=== PATIENT | male | born 1945 | race Caucasian/White ===

== ENCOUNTER → 2022-10-08 10:27 | Outpatient (BNVA) | payer MEDICARE, SELFPAY | PROVIDERS: PCP Internal Medicine; Visit Provider Internal Medicine | DX: I26.99 Other pulmonary embolism without acute cor pulmonale (principal); Z51.81 Encounter for therapeutic drug level monitoring; Z79.01 Long term (current) use of anticoagulants | CPT/HCPCS: 85610; 99202 ==

== ENCOUNTER → 2022-10-15 10:35 | Outpatient (BNVA) | payer MEDICARE, SELFPAY | PROVIDERS: PCP Internal Medicine; Visit Provider Internal Medicine | DX: I26.99 Other pulmonary embolism without acute cor pulmonale (principal); Z79.01 Long term (current) use of anticoagulants; Z51.81 Encounter for therapeutic drug level monitoring | CPT/HCPCS: 85610; 99211 ==

== ENCOUNTER → 2022-10-29 10:34 | Outpatient (BNVA) | payer MEDICARE, SELFPAY | PROVIDERS: PCP Internal Medicine; Visit Provider Internal Medicine | DX: I26.99 Other pulmonary embolism without acute cor pulmonale (principal); Z79.01 Long term (current) use of anticoagulants; Z51.81 Encounter for therapeutic drug level monitoring | CPT/HCPCS: 85610; 99211 ==

== ENCOUNTER → 2022-11-12 10:45 | Outpatient (BNVA) | payer MEDICARE, SELFPAY | PROVIDERS: PCP Internal Medicine; Visit Provider Internal Medicine | DX: I26.99 Other pulmonary embolism without acute cor pulmonale (principal); Z79.01 Long term (current) use of anticoagulants; Z51.81 Encounter for therapeutic drug level monitoring | CPT/HCPCS: 85610; 99211 ==

== ENCOUNTER → 2022-11-26 13:00 | Outpatient (BNVA) | payer MEDICARE, SELFPAY | PROVIDERS: PCP Internal Medicine; Visit Provider Internal Medicine | DX: I26.99 Other pulmonary embolism without acute cor pulmonale (principal); Z79.01 Long term (current) use of anticoagulants; Z51.81 Encounter for therapeutic drug level monitoring | CPT/HCPCS: 85610; 99211 ==

== ENCOUNTER → 2022-12-10 13:01 | Outpatient (BNVA) | payer MEDICARE, SELFPAY | PROVIDERS: PCP Internal Medicine; Visit Provider Internal Medicine | DX: I26.99 Other pulmonary embolism without acute cor pulmonale (principal); Z79.01 Long term (current) use of anticoagulants; Z51.81 Encounter for therapeutic drug level monitoring | CPT/HCPCS: 85610; 99211 ==

== ENCOUNTER → 2022-12-19 13:28 | Outpatient (BNVA) | payer MEDICARE, SELFPAY | PROVIDERS: PCP Internal Medicine; Visit Provider Internal Medicine | DX: I26.99 Other pulmonary embolism without acute cor pulmonale (principal); Z79.01 Long term (current) use of anticoagulants; Z51.81 Encounter for therapeutic drug level monitoring | CPT/HCPCS: 85610; 99212 ==

== ENCOUNTER → 2022-12-24 13:00 | Outpatient (BNVA) | payer MEDICARE, SELFPAY | PROVIDERS: PCP Nurse Practitioner Acute Care; Visit Provider Internal Medicine | DX: I26.99 Other pulmonary embolism without acute cor pulmonale (principal); Z79.01 Long term (current) use of anticoagulants; Z51.81 Encounter for therapeutic drug level monitoring | CPT/HCPCS: 85610; 99211 ==

== ENCOUNTER → 2023-01-03 13:16 | Outpatient (BNVA) | payer MEDICARE, SELFPAY | PROVIDERS: PCP Nurse Practitioner Acute Care; Visit Provider Internal Medicine | DX: I26.99 Other pulmonary embolism without acute cor pulmonale (principal); Z51.81 Encounter for therapeutic drug level monitoring; Z79.01 Long term (current) use of anticoagulants | CPT/HCPCS: 85610; 99211 ==

== ENCOUNTER → 2023-01-21 10:44 | Outpatient (BNVA) | payer MEDICARE, SELFPAY | PROVIDERS: PCP Nurse Practitioner Acute Care; Visit Provider Internal Medicine | DX: I26.99 Other pulmonary embolism without acute cor pulmonale (principal); Z79.01 Long term (current) use of anticoagulants; Z51.81 Encounter for therapeutic drug level monitoring | CPT/HCPCS: 85610; 99211 ==

== ENCOUNTER → 2023-02-11 10:41 | Outpatient (BNVA) | payer MEDICARE, SELFPAY | PROVIDERS: PCP Nurse Practitioner Acute Care; Visit Provider Internal Medicine | DX: I26.99 Other pulmonary embolism without acute cor pulmonale (principal); Z79.01 Long term (current) use of anticoagulants; Z51.81 Encounter for therapeutic drug level monitoring | CPT/HCPCS: 85610; 99211 ==

== ENCOUNTER → 2023-03-04 10:48 | Outpatient (BNVA) | payer MEDICARE, SELFPAY | PROVIDERS: PCP Nurse Practitioner Acute Care; Visit Provider Internal Medicine | DX: I26.99 Other pulmonary embolism without acute cor pulmonale (principal); Z79.01 Long term (current) use of anticoagulants; Z51.81 Encounter for therapeutic drug level monitoring | CPT/HCPCS: 85610; 99211 ==

== ENCOUNTER → 2023-03-17 10:50 | Outpatient (BNVA) | payer MEDICARE, SELFPAY | PROVIDERS: PCP Nurse Practitioner Acute Care; Visit Provider Internal Medicine | DX: I26.99 Other pulmonary embolism without acute cor pulmonale (principal); Z51.81 Encounter for therapeutic drug level monitoring; Z79.01 Long term (current) use of anticoagulants | CPT/HCPCS: 85610; 99211 ==

== ENCOUNTER → 2023-03-24 10:53 | Outpatient (BNVA) | payer MEDICARE, SELFPAY | PROVIDERS: PCP Nurse Practitioner Acute Care; Visit Provider Internal Medicine | DX: I26.99 Other pulmonary embolism without acute cor pulmonale (principal); Z79.01 Long term (current) use of anticoagulants; Z51.81 Encounter for therapeutic drug level monitoring | CPT/HCPCS: 85610; 99211 ==

== ENCOUNTER 2023-04-08 10:00 | Outpatient (AMB) | payer MEDICARE, SELFPAY ==
[2023-04-08 10:14] LABS: Prothrombin Time Whole Bld POC 32.6 sec (11.1-13.5); ~PT, ~INR - Anti Coag Clinic 2.7 (0.9-1.1)
--- NOTE | 2023-04-08 10:17 | MHC.OFFVISCO ---
Intake Intake Visit Reasons: Anticoagulation Allergies lovenox Allergy (Severe, Uncoded 04/08/23 10:08) bleeding morphine Allergy (Severe, Uncoded 04/08/23 10:08) Rash kepra Adverse Reaction (Severe, Uncoded 04/08/23 10:08) Drowsy Medication List - Last Reconciled 04/08/23 by Deepika Peguero RN amoxicillin 2,000 mg PO ONCE PRN azathioprine 150 mg PO DAILY calcium carbonate-vitamin D3 600 mg-10 mcg (400 unit) caps PO DAILY cholecalciferol (vitamin D3) 25 mcg PO DAILY doxazosin 4 mg PO DAILY finasteride 5 mg PO DAILY gabapentin 600 mg PO BID metoprolol tartrate 12.5 mg PO DAILY multivitamin 1 tab PO DAILY nitrofurantoin macrocrystal 100 mg PO .qod nitrofurantoin monohyd/m-cryst 100 mg caps PO omega 8-lyw-mxx-fish oil 1,000 mg (120 mg-180 mg) (Fish Oil) 1 cap PO BID simvastatin 40 mg PO BEDTIME tamsulosin 0.4 mg PO BEDTIME triamcinolone acetonide 0.1% 1 appl topical DAILY PRN warfarin 2.5 mg See Protocol PO DAILY Nursing Note Amb to [facility] feeling well Medications and supplements reviewed, noted recent missed doses sts he is going to put pill box on kitchen table to help remind him, sts no children or animals in house, sts also that he has many reminders for other things on his phone that I ignore No other changes in health, diet, medications, or supplements Denies any unusual signs and symptoms of bruising, bleeding Denies any new Chest pain, SOB, or clotting INR: 2.7 in therapeutic range (2.5-3.5) Nutritional guidance given: balance greens and reds in diet, doen't really like heavy duty greens Dose: continue usual dosing; 7.5mg x 2 days and 5mg x 5 days F/U INR: 2 weeks Patient verbalizes understanding of instructions given with accurate read back/ teach back of dosing Anti-Coag Initial Assessment Social Hx Patient Tobacco Use Status: Never used Tobacco alcohol intake: current Alcohol intake frequency: holidays/special occasions only Cardiovascular Hx: HTN Lung Disease HX: DVT/PE and Other Endocrine Hx: Diabetes and Autoimmune disorders Blood Disorder Hx: Hyperlipidemia and Hepatitis Hx: Kidney Disease and Prostate Neurological Hx: Epilepsy/Seizures and Stroke/TIA Cancer HX: No Psych. Illness/Depression: No Coding Level of Care Code Est Patient Level 1 Diagnoses Current use of anticoagulant therapy Z79.01 Time Spent (min) 15 Assessment & Plan Assessment & Plan (1) Current use of anticoagulant therapy: Code(s): Z79.01 - correction (current) use of anticoagulants Category: Medical
== END 2023-04-08 10:36 | disposition home or self-care (01) ==
LOC: HO.ACS 10:00
PROVIDERS: PCP Nurse Practitioner Acute Care; Visit Provider Internal Medicine
DX: Z79.01 Long term (current) use of anticoagulants (principal)

== ENCOUNTER → 2023-04-08 10:00 | Outpatient (BNVA) | payer MEDICARE, SELFPAY | PROVIDERS: PCP Nurse Practitioner Acute Care; Visit Provider Internal Medicine | DX: I26.99 Other pulmonary embolism without acute cor pulmonale (principal); Z79.01 Long term (current) use of anticoagulants; Z51.81 Encounter for therapeutic drug level monitoring | CPT/HCPCS: 85610; 99211 ==

== ENCOUNTER 2023-04-22 10:13 | Outpatient (AMB) | payer MEDICARE, SELFPAY ==
--- NOTE | 2023-04-22 10:27 | MHC.OFFVISCO ---
Intake Intake Visit Reasons: Anticoagulation Allergies lovenox Allergy (Severe, Uncoded 04/22/23 10:24) bleeding morphine Allergy (Severe, Uncoded 04/22/23 10:24) Rash kepra Adverse Reaction (Severe, Uncoded 04/22/23 10:24) Drowsy Medication List - Last Reconciled 04/22/23 by Soo Ho RN amoxicillin 2,000 mg PO ONCE PRN azathioprine 150 mg PO DAILY calcium carbonate-vitamin D3 600 mg-10 mcg (400 unit) caps PO DAILY cholecalciferol (vitamin D3) 25 mcg PO DAILY doxazosin 4 mg PO DAILY finasteride 5 mg PO DAILY gabapentin 600 mg PO BID metoprolol tartrate 12.5 mg PO DAILY multivitamin 1 tab PO DAILY nitrofurantoin macrocrystal 100 mg PO .qod nitrofurantoin monohyd/m-cryst 100 mg caps PO omega 3-ybi-ydn-fish oil 1,000 mg (120 mg-180 mg) (Fish Oil) 1 cap PO BID simvastatin 40 mg PO BEDTIME tamsulosin 0.4 mg PO BEDTIME triamcinolone acetonide 0.1% 1 appl topical DAILY PRN warfarin 2.5 mg See Protocol PO DAILY Nursing Note INR: 2.6- in therapeutic range Medications and supplements reviewed No changes in health, diet, medications, or supplements, Denies any signs and symptoms of bleeding or bruising or clotting. Bleeding, bruising, clotting discussed Nutritional guidance given - eat a red today Dose: 7.5mg x 2, 5mg x 5 F/U INR: 2 weeks Patient verbalizes understanding of instructions given Anti-Coag Initial Assessment Social Hx Patient Tobacco Use Status: Never used Tobacco alcohol intake: current Alcohol intake frequency: holidays/special occasions only Cardiovascular Hx: HTN Lung Disease HX: DVT/PE and Other Endocrine Hx: Diabetes and Autoimmune disorders Blood Disorder Hx: Hyperlipidemia and Hepatitis Hx: Kidney Disease and Prostate Neurological Hx: Epilepsy/Seizures and Stroke/TIA Cancer HX: No Psych. 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
[2023-04-22 10:29] LABS: Prothrombin Time Whole Bld POC 31.1 sec (11.1-13.5); ~PT, ~INR - Anti Coag Clinic 2.6 (0.9-1.1)
== END 2023-04-22 10:36 | disposition home or self-care (01) ==
LOC: HO.ACS 10:13
PROVIDERS: PCP Nurse Practitioner Acute Care; Visit Provider Internal Medicine
DX: Z79.01 Long term (current) use of anticoagulants (principal)

== ENCOUNTER → 2023-04-22 10:13 | Outpatient (BNVA) | payer MEDICARE, SELFPAY | PROVIDERS: PCP Nurse Practitioner Acute Care; Visit Provider Internal Medicine | DX: I26.99 Other pulmonary embolism without acute cor pulmonale (principal); Z51.81 Encounter for therapeutic drug level monitoring; Z79.01 Long term (current) use of anticoagulants | CPT/HCPCS: 85610; 99211 ==

== ENCOUNTER 2023-05-06 10:22 | Outpatient (AMB) | payer MEDICARE, SELFPAY ==
--- NOTE | 2023-05-06 10:53 | MHC.OFFVISCO ---
Intake Intake Visit Reasons: Anticoagulation Allergies lovenox Allergy (Severe, Uncoded 05/06/23 10:34) bleeding morphine Allergy (Severe, Uncoded 05/06/23 10:34) Rash kepra Adverse Reaction (Severe, Uncoded 05/06/23 10:34) Drowsy Medication List - Last Reconciled 05/06/23 by Sultana Romero RN amoxicillin 2,000 mg PO ONCE PRN azathioprine 150 mg PO DAILY calcium carbonate-vitamin D3 600 mg-10 mcg (400 unit) caps PO DAILY cholecalciferol (vitamin D3) 25 mcg PO DAILY doxazosin 4 mg PO DAILY finasteride 5 mg PO DAILY gabapentin 600 mg PO BID metoprolol tartrate 12.5 mg PO DAILY multivitamin 1 tab PO DAILY nitrofurantoin macrocrystal 100 mg PO .qod nitrofurantoin monohyd/m-cryst 100 mg caps PO omega 7-rkz-ihc-fish oil 1,000 mg (120 mg-180 mg) (Fish Oil) 1 cap PO BID simvastatin 40 mg PO BEDTIME tamsulosin 0.4 mg PO BEDTIME triamcinolone acetonide 0.1% 1 appl topical DAILY PRN warfarin 2.5 mg See Protocol PO DAILY Nursing Note INR 2.4 out of therapeutic range Medications and supplements reviewed Patient status: pt is well, staying active with yard work and house projects, Medications or supplements: no changes Diet: good Denies any signs and symptoms of bleeding or clotting or unusual bruising Bleeding, bruising, clotting discussed Nutritional guidance given: eat a mix of fruits and vegetables Dose: increase 7.5mg x 3days/ 5mg x 4 days F/U INR Date : 2 weeks ?? Patient verbalizing understanding of instructions given. 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 Illness/Depression: No Coding Level of Care Code Est Patient Level 1 Diagnoses Current use of anticoagulant therapy Z79.01 Results AMB INR Fingerstick AMB INR Fingerstick 2.4 Last Edit by Sultana Romero RN on 05/06/23 10:45 INTERFACE DELAY Assessment & Plan Assessment & Plan (1) Current use of anticoagulant therapy: Code(s): Z79.01 - [facility]P (current) use of anticoagulants Category: Medical
[2023-05-06 11:26] LABS: Prothrombin Time Whole Bld POC 28.9 sec (11.1-13.5); ~PT, ~INR - Anti Coag Clinic 2.4 (0.9-1.1)
== END 2023-05-06 10:59 | disposition home or self-care (01) ==
LOC: HO.ACS 10:22
PROVIDERS: PCP Nurse Practitioner Acute Care; Visit Provider Internal Medicine
DX: Z79.01 Long term (current) use of anticoagulants (principal)

== ENCOUNTER → 2023-05-06 10:22 | Outpatient (BNVA) | payer MEDICARE, SELFPAY | PROVIDERS: PCP Nurse Practitioner Acute Care; Visit Provider Internal Medicine | DX: I26.99 Other pulmonary embolism without acute cor pulmonale (principal); Z79.01 Long term (current) use of anticoagulants; Z51.81 Encounter for therapeutic drug level monitoring | CPT/HCPCS: 85610; 99211 ==

== ENCOUNTER 2023-05-20 10:21 | Outpatient (AMB) | payer MEDICARE, SELFPAY ==
--- NOTE | 2023-05-20 10:32 | MHC.OFFVISCO ---
Intake Intake Visit Reasons: Anticoagulation Allergies lovenox Allergy (Severe, Uncoded 05/20/23 10:26) bleeding morphine Allergy (Severe, Uncoded 05/20/23 10:26) Rash kepra Adverse Reaction (Severe, Uncoded 05/20/23 10:26) Drowsy Medication List - Last Reconciled 05/20/23 by Soo Ho RN amoxicillin 2,000 mg PO ONCE PRN azathioprine 150 mg PO DAILY calcium carbonate-vitamin D3 600 mg-10 mcg (400 unit) caps PO DAILY cholecalciferol (vitamin D3) 25 mcg PO DAILY doxazosin 4 mg PO DAILY finasteride 5 mg PO DAILY gabapentin 600 mg PO BID metoprolol tartrate 12.5 mg PO DAILY multivitamin 1 tab PO DAILY nitrofurantoin macrocrystal 100 mg PO .qod nitrofurantoin monohyd/m-cryst 100 mg caps PO omega 5-wva-zay-fish oil 1,000 mg (120 mg-180 mg) (Fish Oil) 1 cap PO BID simvastatin 40 mg PO BEDTIME tamsulosin 0.4 mg PO BEDTIME triamcinolone acetonide 0.1% 1 appl topical DAILY PRN warfarin 2.5 mg See Protocol PO DAILY Nursing Note INR: 3.0- in therapeutic range Medications and supplements reviewed No changes in health, diet, medications, or supplements, Denies any signs and symptoms of bleeding or bruising or clotting. Bleeding, bruising, clotting discussed Nutritional guidance given Dose: 7.5mg x 3, 5mg x 4 F/U INR: 2 weeks Patient verbalizes understanding of instructions given pt with c.o discomfort right leg- seen by cardio- ordered u/s neg, saw pcp- seeing vascular pt states issues with cpap history/readings- has reported this to pcp Anti-Coag Initial Assessment Social Hx Patient Tobacco Use Status: Never used Tobacco alcohol intake: current Alcohol intake frequency: holidays/special occasions only Cardiovascular Hx: HTN Lung Disease HX: DVT/PE and Other Endocrine Hx: Diabetes and Autoimmune disorders Blood Disorder Hx: Hyperlipidemia and Hepatitis Hx: Kidney Disease and Prostate Neurological Hx: Epilepsy/Seizures and Stroke/TIA Cancer HX: No Psych. Illness/Depression: No Coding Level of Care Code Est Patient Level 1 Diagnoses Current use of anticoagulant therapy Z79.01 Assessment & Plan Assessment & Plan (1) Current use of anticoagulant therapy: Code(s): Z79.01 - USP (current) use of anticoagulants Category: Medical Medications: New baclofen 5 mg PO BEDTIME
[2023-05-20 10:33] LABS: Prothrombin Time Whole Bld POC 36.2 sec (11.1-13.5)
== END 2023-05-20 10:49 | disposition home or self-care (01) ==
LOC: HO.ACS 10:21
PROVIDERS: PCP Nurse Practitioner Acute Care; Visit Provider Internal Medicine
DX: Z79.01 Long term (current) use of anticoagulants (principal)

== ENCOUNTER → 2023-05-20 10:21 | Outpatient (BNVA) | payer MEDICARE, SELFPAY | PROVIDERS: PCP Nurse Practitioner Acute Care; Visit Provider Internal Medicine | DX: I26.99 Other pulmonary embolism without acute cor pulmonale (principal); Z79.01 Long term (current) use of anticoagulants; Z51.81 Encounter for therapeutic drug level monitoring | CPT/HCPCS: 85610; 99211 ==

== ENCOUNTER 2023-06-03 10:20 | Outpatient (AMB) | payer MEDICARE, SELFPAY ==
--- NOTE | 2023-06-03 10:38 | MHC.OFFVISCO ---
Intake Intake Visit Reasons: Anticoagulation Allergies lovenox Allergy (Severe, Uncoded 06/03/23 10:32) bleeding morphine Allergy (Severe, Uncoded 06/03/23 10:32) Rash kepra Adverse Reaction (Severe, Uncoded 06/03/23 10:32) Drowsy Medication List - Last Reconciled 06/03/23 by Soo Ho RN amoxicillin 2,000 mg PO ONCE PRN azathioprine 150 mg PO DAILY calcium carbonate-vitamin D3 600 mg-10 mcg (400 unit) caps PO DAILY cholecalciferol (vitamin D3) 25 mcg PO DAILY doxazosin 4 mg PO DAILY finasteride 5 mg PO DAILY gabapentin 600 mg PO BID metoprolol tartrate 12.5 mg PO DAILY multivitamin 1 tab PO DAILY nitrofurantoin macrocrystal 100 mg PO .qod nitrofurantoin monohyd/m-cryst 100 mg caps PO omega 1-hwo-aha-fish oil 1,000 mg (120 mg-180 mg) (Fish Oil) 1 cap PO BID simvastatin 40 mg PO BEDTIME tamsulosin 0.4 mg PO BEDTIME triamcinolone acetonide 0.1% 1 appl topical DAILY PRN warfarin 2.5 mg See Protocol PO DAILY Nursing Note INR: 2.9- in therapeutic range Medications and supplements reviewed- pt states not taking baclofen- no interaction with warfarin No changes in health, diet, medications, or supplements, Denies any signs and symptoms of bleeding or bruising or clotting. Bleeding, bruising, clotting discussed Nutritional guidance given Dose: 7.5mg x 3, 5mg x 4 F/U INR: pt req 3 weeks Patient verbalizes understanding of instructions given pt cont with rle pain- states saw pcp and vasc with neg u/s Anti-Coag Initial Assessment Social Hx Patient Tobacco Use Status: Never used Tobacco alcohol intake: current Alcohol intake frequency: holidays/special occasions only Cardiovascular Hx: HTN Lung Disease HX: DVT/PE and Other Endocrine Hx: Diabetes and Autoimmune disorders Blood Disorder Hx: Hyperlipidemia and Hepatitis Hx: Kidney Disease and Prostate Neurological Hx: Epilepsy/Seizures and Stroke/TIA Cancer HX: No Psych. 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
[2023-06-03 10:39] LABS: Prothrombin Time Whole Bld POC 34.9 sec (11.1-13.5); ~PT, ~INR - Anti Coag Clinic 2.9 (0.9-1.1)
== END 2023-06-03 10:45 | disposition home or self-care (01) ==
LOC: HO.ACS 10:20
PROVIDERS: PCP Nurse Practitioner Acute Care; Visit Provider Internal Medicine
DX: Z79.01 Long term (current) use of anticoagulants (principal)

== ENCOUNTER → 2023-06-03 10:20 | Outpatient (BNVA) | payer MEDICARE, SELFPAY | PROVIDERS: PCP Nurse Practitioner Acute Care; Visit Provider Internal Medicine | DX: I26.99 Other pulmonary embolism without acute cor pulmonale (principal); Z79.01 Long term (current) use of anticoagulants; Z51.81 Encounter for therapeutic drug level monitoring | CPT/HCPCS: 85610; 99211 ==

== ENCOUNTER 2023-06-24 10:28 | Outpatient (AMB) | payer MEDICARE, SELFPAY ==
--- NOTE | 2023-06-24 10:43 | MHC.OFFVISCO ---
Intake Intake Visit Reasons: Anticoagulation Allergies lovenox Allergy (Severe, Uncoded 06/24/23 10:39) bleeding morphine Allergy (Severe, Uncoded 06/24/23 10:39) Rash kepra Adverse Reaction (Severe, Uncoded 06/24/23 10:39) Drowsy Medication List - Last Reconciled 06/24/23 by Soo Ho RN amoxicillin 2,000 mg PO ONCE PRN azathioprine 150 mg PO DAILY calcium carbonate-vitamin D3 600 mg-10 mcg (400 unit) caps PO DAILY cholecalciferol (vitamin D3) 25 mcg PO DAILY doxazosin 4 mg PO DAILY finasteride 5 mg PO DAILY gabapentin 600 mg PO BID metoprolol tartrate 12.5 mg PO DAILY multivitamin 1 tab PO DAILY nitrofurantoin macrocrystal 100 mg PO .qod nitrofurantoin monohyd/m-cryst 100 mg caps PO omega 7-bzs-vnu-fish oil 1,000 mg (120 mg-180 mg) (Fish Oil) 1 cap PO BID simvastatin 40 mg PO BEDTIME tamsulosin 0.4 mg PO BEDTIME triamcinolone acetonide 0.1% 1 appl topical DAILY PRN warfarin 2.5 mg See Protocol PO DAILY Nursing Note INR: 2.7- in therapeutic range Medications and supplements reviewed- no changes No changes in health, diet, medications, or supplements, Denies any signs and symptoms of bleeding or bruising or clotting. Bleeding, bruising, clotting discussed Nutritional guidance given Dose: 7.5mg x 3, 5mg x 4 F/U INR: 3 weeks Patient verbalizes understanding of instructions given pt states rle discomfort improved, has back pain and had xray- pt states has arthritis Anti-Coag Initial Assessment Social Hx Patient Tobacco Use Status: Never used Tobacco alcohol intake: current Alcohol intake frequency: holidays/special occasions only Cardiovascular Hx: HTN Lung Disease HX: DVT/PE and Other Endocrine Hx: Diabetes and Autoimmune disorders Blood Disorder Hx: Hyperlipidemia and Hepatitis Hx: Kidney Disease and Prostate Neurological Hx: Epilepsy/Seizures and Stroke/TIA Cancer HX: No Psych. 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
[2023-06-24 10:45] LABS: Prothrombin Time Whole Bld POC 32.5 sec (11.1-13.5); ~PT, ~INR - Anti Coag Clinic 2.7 (0.9-1.1)
== END 2023-06-24 10:52 | disposition home or self-care (01) ==
PROVIDERS: PCP Physician Assistant Medical; Visit Provider Internal Medicine
DX: Z79.01 Long term (current) use of anticoagulants (principal)

== ENCOUNTER → 2023-06-24 10:28 | Outpatient (BNVA) | payer MEDICARE, SELFPAY | PROVIDERS: PCP Nurse Practitioner Acute Care; Visit Provider Internal Medicine | DX: I26.99 Other pulmonary embolism without acute cor pulmonale (principal); Z51.81 Encounter for therapeutic drug level monitoring; Z79.01 Long term (current) use of anticoagulants | CPT/HCPCS: 85610; 99211 ==

== ENCOUNTER 2023-07-15 10:08 | Outpatient (AMB) | payer MEDICARE, SELFPAY ==
--- NOTE | 2023-07-15 10:16 | MHC.OFFVISCO ---
Intake Intake Visit Reasons: Anticoagulation Allergies lovenox Allergy (Severe, Uncoded 07/15/23 10:11) bleeding morphine Allergy (Severe, Uncoded 07/15/23 10:11) Rash kepra Adverse Reaction (Severe, Uncoded 07/15/23 10:11) Drowsy Medication List - Last Reconciled 07/15/23 by Soo Ho RN amoxicillin 2,000 mg PO ONCE PRN azathioprine 150 mg PO DAILY calcium carbonate-vitamin D3 600 mg-10 mcg (400 unit) caps PO DAILY cholecalciferol (vitamin D3) 25 mcg PO DAILY doxazosin 4 mg PO DAILY finasteride 5 mg PO DAILY gabapentin 600 mg PO BID metoprolol tartrate 12.5 mg PO DAILY multivitamin 1 tab PO DAILY nitrofurantoin macrocrystal 100 mg PO .qod nitrofurantoin monohyd/m-cryst 100 mg caps PO omega 1-iey-tmv-fish oil 1,000 mg (120 mg-180 mg) (Fish Oil) 1 cap PO BID simvastatin 40 mg PO BEDTIME tamsulosin 0.4 mg PO BEDTIME triamcinolone acetonide 0.1% 1 appl topical DAILY PRN warfarin 2.5 mg See Protocol PO DAILY Nursing Note INR received from [facility] INR?? 3.0- in therapeutic range of 2.5-3.5 Keep same dose - 5mg x 4, 7.5mg x 3 No changes indicated per patient assessment questionnaire No changes in health, diet, supplements or meds No signs and symptoms of bleeding or bruising or clotting Retest 4 weeks pt states had flu vaccine approx 2 weeks ago Anti-Coag Initial Assessment Social Hx Patient Tobacco Use Status: Never used Tobacco alcohol intake: current Alcohol intake frequency: holidays/special occasions only Cardiovascular Hx: HTN Lung Disease HX: DVT/PE and Other Endocrine Hx: Diabetes and Autoimmune disorders Blood Disorder Hx: Hyperlipidemia and Hepatitis Hx: Kidney Disease and Prostate Neurological Hx: Epilepsy/Seizures and Stroke/TIA Cancer HX: No Psych. Illness/Depression: No Coding Level of Care Code Est Patient Level 1 Diagnoses Current use of anticoagulant therapy Z79.01 Assessment & Plan Assessment & Plan (1) Current use of anticoagulant therapy: Code(s): Z79.01 - [facility] (current) use of anticoagulants Category: Medical
[2023-07-15 10:17] LABS: Prothrombin Time Whole Bld POC 35.9 sec (11.1-13.5)
== END 2023-07-15 10:21 | disposition home or self-care (01) ==
LOC: HO.ACS 10:08
PROVIDERS: PCP Physician Assistant Medical; Visit Provider Internal Medicine
DX: Z79.01 Long term (current) use of anticoagulants (principal)

== ENCOUNTER → 2023-07-15 10:08 | Outpatient (BNVA) | payer MEDICARE, SELFPAY | PROVIDERS: PCP Physician Assistant Medical; Visit Provider Internal Medicine | DX: I26.99 Other pulmonary embolism without acute cor pulmonale (principal); Z79.01 Long term (current) use of anticoagulants; Z51.81 Encounter for therapeutic drug level monitoring | CPT/HCPCS: 85610; 99211 ==

== ENCOUNTER 2023-08-12 11:18 | Outpatient (AMB) | payer MEDICARE, SELFPAY ==
--- NOTE | 2023-08-12 11:32 | MHC.OFFVISCO ---
Intake Intake Visit Reasons: Anticoagulation Allergies lovenox Allergy (Severe, Uncoded 08/12/23 11:27) bleeding morphine Allergy (Severe, Uncoded 08/12/23 11:27) Rash kepra Adverse Reaction (Severe, Uncoded 08/12/23 11:27) Drowsy Medication List - Last Reconciled 08/12/23 by Soo Ho RN amoxicillin 2,000 mg PO ONCE PRN azathioprine 150 mg PO DAILY calcium carbonate-vitamin D3 600 mg-10 mcg (400 unit) caps PO DAILY cholecalciferol (vitamin D3) 25 mcg PO DAILY doxazosin 4 mg PO DAILY finasteride 5 mg PO DAILY gabapentin 600 mg PO BID metoprolol tartrate 12.5 mg PO DAILY multivitamin 1 tab PO DAILY nitrofurantoin macrocrystal 100 mg PO .qod omega 7-khz-gar-fish oil 1,000 mg (120 mg-180 mg) (Fish Oil) 1 cap PO BID simvastatin 40 mg PO BEDTIME tamsulosin 0.4 mg PO BEDTIME triamcinolone acetonide 0.1% 1 appl topical DAILY PRN warfarin 2.5 mg See Protocol PO DAILY Nursing Note INR: 2.7- in therapeutic range of 2.5- 3.5 Medications and supplements reviewed- no changes No changes in health, diet, medications, or supplements, Denies any signs and symptoms of bleeding or bruising or clotting. Bleeding, bruising, clotting discussed Nutritional guidance given Dose: 7.5mg x 3, 5mg x 4 F/U INR: 4 weeks Patient verbalizes understanding of instructions given Anti-Coag Initial Assessment Social Hx Patient Tobacco Use Status: Never used Tobacco alcohol intake: current Alcohol intake frequency: holidays/special occasions only Cardiovascular Hx: HTN Lung Disease HX: DVT/PE and Other Endocrine Hx: Diabetes and Autoimmune disorders Blood Disorder Hx: Hyperlipidemia and Hepatitis Hx: Kidney Disease and Prostate Neurological Hx: Epilepsy/Seizures and Stroke/TIA Cancer HX: No Psych. Illness/Depression: No Coding Level of Care Code Est Patient Level 1 Results AMB INR Fingerstick AMB INR Fingerstick 2.7 Last Edit by Soo Ho RN on 08/12/23 11:33
[2023-08-12 11:33] LABS: Prothrombin Time Whole Bld POC 32.8 sec (11.1-13.5); ~PT, ~INR - Anti Coag Clinic 2.7 (0.9-1.1)
== END 2023-08-12 11:38 | disposition home or self-care (01) ==
LOC: HO.ACS 11:18
PROVIDERS: PCP Physician Assistant Medical; Visit Provider Internal Medicine
DX: Z79.01 Long term (current) use of anticoagulants (principal)

== ENCOUNTER → 2023-08-12 11:18 | Outpatient (BNVA) | payer MEDICARE, SELFPAY | PROVIDERS: PCP Physician Assistant Medical; Visit Provider Internal Medicine | DX: I26.99 Other pulmonary embolism without acute cor pulmonale (principal); Z79.01 Long term (current) use of anticoagulants; Z51.81 Encounter for therapeutic drug level monitoring | CPT/HCPCS: 85610; 99211 ==

== ENCOUNTER 2023-09-09 12:56 | Outpatient (AMB) | payer MEDICARE, SELFPAY ==
--- NOTE | 2023-09-09 13:10 | MHC.OFFVISCO ---
Intake Intake Visit Reasons: Anticoagulation Allergies lovenox Allergy (Severe, Uncoded 09/09/23 13:05) bleeding morphine Allergy (Severe, Uncoded 09/09/23 13:05) Rash kepra Adverse Reaction (Severe, Uncoded 09/09/23 13:05) Drowsy Medication List - Last Reconciled 09/09/23 by Soo Ho RN amoxicillin 2,000 mg PO ONCE PRN azathioprine 150 mg PO DAILY calcium carbonate-vitamin D3 600 mg-10 mcg (400 unit) caps PO DAILY cholecalciferol (vitamin D3) 25 mcg PO DAILY doxazosin 4 mg PO DAILY finasteride 5 mg PO DAILY gabapentin 600 mg PO BID metoprolol tartrate 12.5 mg PO DAILY multivitamin 1 tab PO DAILY nitrofurantoin macrocrystal 100 mg PO .qod omega 6-srg-api-fish oil 1,000 mg (120 mg-180 mg) (Fish Oil) 1 cap PO BID simvastatin 40 mg PO BEDTIME tamsulosin 0.4 mg PO BEDTIME triamcinolone acetonide 0.1% 1 appl topical DAILY PRN warfarin 2.5 mg See Protocol PO DAILY Nursing Note INR: 3.2- in therapeutic range of 2.5-3.5 Medications and supplements reviewed- no changes, pt had rsv vaccine yesterday No changes in health, diet, medications, or supplements, Denies any signs and symptoms of bleeding or bruising or clotting. Bleeding, bruising, clotting discussed Nutritional guidance given Dose: 7.5mg x 3, 5mg x 4 F/U INR: 2 week f/u recommended due to vaccine but pt req 4 weeks Patient verbalizes understanding of instructions given Anti-Coag Initial Assessment Social Hx Patient Tobacco Use Status: Never used Tobacco alcohol intake: current Alcohol intake frequency: holidays/special occasions only Cardiovascular Hx: HTN Lung Disease HX: DVT/PE and Other Endocrine Hx: Diabetes and Autoimmune disorders Blood Disorder Hx: Hyperlipidemia and Hepatitis Hx: Kidney Disease and Prostate Neurological Hx: Epilepsy/Seizures and Stroke/TIA Cancer HX: No Psych. Illness/Depression: No Coding Level of Care Code Est Patient Level 1 Diagnoses Current use of anticoagulant therapy Z79.01 Assessment & Plan Assessment & Plan (1) Current use of anticoagulant therapy: Code(s): Z79.01 - prison (current) use of anticoagulants Category: Medical
[2023-09-09 13:11] LABS: Prothrombin Time Whole Bld POC 38.7 sec (11.1-13.5); ~PT, ~INR - Anti Coag Clinic 3.2 (0.9-1.1)
== END 2023-09-09 13:17 | disposition home or self-care (01) ==
LOC: HO.ACS 12:56
PROVIDERS: PCP Physician Assistant Medical; Visit Provider Internal Medicine
DX: Z79.01 Long term (current) use of anticoagulants (principal)

== ENCOUNTER → 2023-09-09 12:56 | Outpatient (BNVA) | payer MEDICARE, SELFPAY | PROVIDERS: PCP Physician Assistant Medical; Visit Provider Internal Medicine | DX: I26.99 Other pulmonary embolism without acute cor pulmonale (principal); Z79.01 Long term (current) use of anticoagulants; Z51.81 Encounter for therapeutic drug level monitoring | CPT/HCPCS: 85610; 99211 ==

== ENCOUNTER 2023-10-08 10:26 | Outpatient (AMB) | payer MEDICARE, SELFPAY ==
--- NOTE | 2023-10-08 10:38 | MHC.OFFVISCO ---
Intake Intake Visit Reasons: Anticoagulation Allergies lovenox Allergy (Severe, Uncoded 10/08/23 10:35) bleeding morphine Allergy (Severe, Uncoded 10/08/23 10:35) Rash kepra Adverse Reaction (Severe, Uncoded 10/08/23 10:35) Drowsy Medication List - Last Reconciled 10/08/23 by Soo Ho RN amoxicillin 2,000 mg PO ONCE PRN azathioprine 150 mg PO DAILY calcium carbonate-vitamin D3 600 mg-10 mcg (400 unit) caps PO DAILY cholecalciferol (vitamin D3) 25 mcg PO DAILY doxazosin 4 mg PO DAILY finasteride 5 mg PO DAILY gabapentin 600 mg PO BID metoprolol tartrate 12.5 mg PO DAILY multivitamin 1 tab PO DAILY nitrofurantoin macrocrystal 100 mg PO .qod omega 6-qpp-iym-fish oil 1,000 mg (120 mg-180 mg) (Fish Oil) 1 cap PO BID simvastatin 40 mg PO BEDTIME tamsulosin 0.4 mg PO BEDTIME triamcinolone acetonide 0.1% 1 appl topical DAILY PRN warfarin 2.5 mg See Protocol PO DAILY Nursing Note INR: 2.7- in therapeutic range2.5-3.5 Medications and supplements reviewed- no changes No changes in health, diet, medications, or supplements, Denies any signs and symptoms of bleeding or bruising or clotting. Bleeding, bruising, clotting discussed Nutritional guidance given Dose: 7.5mg x 3, 5mg x 4 F/U INR: 4 weeks Patient verbalizes understanding of instructions given pt with missed dose 09/17/24- pt called acs and dose adjusted Anti-Coag Initial Assessment Social Hx Patient Tobacco Use Status: Never used Tobacco alcohol intake: current Alcohol intake frequency: holidays/special occasions only Cardiovascular Hx: HTN Lung Disease HX: DVT/PE and Other Endocrine Hx: Diabetes and Autoimmune disorders Blood Disorder Hx: Hyperlipidemia and Hepatitis Hx: Kidney Disease and Prostate Neurological Hx: Epilepsy/Seizures and Stroke/TIA Cancer HX: No Psych. 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
[2023-10-08 10:40] LABS: Prothrombin Time Whole Bld POC 32.4 sec (11.1-13.5); ~PT, ~INR - Anti Coag Clinic 2.7 (0.9-1.1)
== END 2023-10-08 10:44 | disposition home or self-care (01) ==
LOC: HO.ACS 10:26
PROVIDERS: PCP Physician Assistant Medical; Visit Provider Internal Medicine
DX: Z79.01 Long term (current) use of anticoagulants (principal)

== ENCOUNTER → 2023-10-08 10:26 | Outpatient (BNVA) | payer MEDICARE, SELFPAY | PROVIDERS: PCP Physician Assistant Medical; Visit Provider Internal Medicine | DX: I26.99 Other pulmonary embolism without acute cor pulmonale (principal); Z79.01 Long term (current) use of anticoagulants; Z51.81 Encounter for therapeutic drug level monitoring | CPT/HCPCS: 85610; 99211 ==

== ENCOUNTER 2023-11-05 10:11 | Outpatient (AMB) | payer MEDICARE, SELFPAY ==
--- NOTE | 2023-11-05 10:25 | MHC.OFFVISCO ---
Intake Intake Visit Reasons: Anticoagulation Allergies lovenox Allergy (Severe, Uncoded 11/05/23 10:18) bleeding morphine Allergy (Severe, Uncoded 11/05/23 10:18) Rash kepra Adverse Reaction (Severe, Uncoded 11/05/23 10:18) Drowsy Medication List - Last Reconciled 11/05/23 by Soo Ho RN amoxicillin 2,000 mg PO ONCE PRN azathioprine 150 mg PO DAILY calcium carbonate-vitamin D3 600 mg-10 mcg (400 unit) caps PO DAILY cholecalciferol (vitamin D3) 25 mcg PO DAILY doxazosin 4 mg PO DAILY finasteride 5 mg PO DAILY gabapentin 600 mg PO BID metoprolol tartrate 12.5 mg PO DAILY multivitamin 1 tab PO DAILY nitrofurantoin macrocrystal 100 mg PO .qod omega 1-zjb-jib-fish oil 1,000 mg (120 mg-180 mg) (Fish Oil) 1 cap PO BID simvastatin 40 mg PO BEDTIME tamsulosin 0.4 mg PO BEDTIME triamcinolone acetonide 0.1% 1 appl topical DAILY PRN warfarin 2.5 mg See Protocol PO DAILY Nursing Note INR: 2.6- in therapeutic range of 2.5-3.5 Medications and supplements reviewed- no changes No changes in health, diet, medications, or supplements, Denies any signs and symptoms of bleeding or bruising or clotting. Bleeding, bruising, clotting discussed Nutritional guidance given Dose: 7.5mg x 3, 5mg x 4 F/U INR: 4 weeks Patient verbalizes understanding of instructions given Anti-Coag Initial Assessment Social Hx Patient Tobacco Use Status: Never used Tobacco alcohol intake: current Alcohol intake frequency: holidays/special occasions only Cardiovascular Hx: HTN Lung Disease HX: DVT/PE and Other Endocrine Hx: Diabetes and Autoimmune disorders Blood Disorder Hx: Hyperlipidemia and Hepatitis Hx: Kidney Disease and Prostate Neurological Hx: Epilepsy/Seizures and Stroke/TIA Cancer HX: No Psych. 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
[2023-11-05 10:31] LABS: Prothrombin Time Whole Bld POC 31.6 sec (11.1-13.5); ~PT, ~INR - Anti Coag Clinic 2.6 (0.9-1.1)
== END 2023-11-05 10:30 | disposition home or self-care (01) ==
LOC: HO.ACS 10:11
PROVIDERS: PCP Physician Assistant Medical; Visit Provider Internal Medicine
DX: Z79.01 Long term (current) use of anticoagulants (principal)

== ENCOUNTER → 2023-11-05 10:11 | Outpatient (BNVA) | payer MEDICARE, SELFPAY | PROVIDERS: PCP Physician Assistant Medical; Visit Provider Internal Medicine | DX: I26.99 Other pulmonary embolism without acute cor pulmonale (principal); Z79.01 Long term (current) use of anticoagulants; Z51.81 Encounter for therapeutic drug level monitoring | CPT/HCPCS: 85610; 99211 ==

== ENCOUNTER 2023-12-03 10:35 | Outpatient (AMB) | payer MEDICARE, SELFPAY ==
--- NOTE | 2023-12-03 10:43 | MHC.OFFVISCO ---
Intake Intake Visit Reasons: Anticoagulation Allergies lovenox Allergy (Severe, Uncoded 12/03/23 10:39) bleeding morphine Allergy (Severe, Uncoded 12/03/23 10:39) Rash kepra Adverse Reaction (Severe, Uncoded 12/03/23 10:39) Drowsy Medication List - Last Reconciled 12/03/23 by Soo Ho RN amoxicillin 2,000 mg PO ONCE PRN azathioprine 150 mg PO DAILY calcium carbonate-vitamin D3 600 mg-10 mcg (400 unit) caps PO DAILY cholecalciferol (vitamin D3) 25 mcg PO DAILY doxazosin 4 mg PO DAILY finasteride 5 mg PO DAILY gabapentin 600 mg PO BID metoprolol tartrate 12.5 mg PO DAILY multivitamin 1 tab PO DAILY nitrofurantoin macrocrystal 100 mg PO .qod omega 6-xhm-gry-fish oil 1,000 mg (120 mg-180 mg) (Fish Oil) 1 cap PO BID simvastatin 40 mg PO BEDTIME tamsulosin 0.4 mg PO BEDTIME triamcinolone acetonide 0.1% 1 appl topical DAILY PRN warfarin 2.5 mg See Protocol PO DAILY Nursing Note INR received from [facility] INR?? 3.1- in therapeutic range of 2.5-3.5 Keep same dose - 7.5mg x 3, 5mg x 4 No changes indicated per patient assessment questionnaire No changes in health, diet, supplements or meds No signs and symptoms of bleeding or bruising or clotting Retest 4 weeks Anti-Coag Initial Assessment Social Hx Patient Tobacco Use Status: Never used Tobacco alcohol intake: current Alcohol intake frequency: holidays/special occasions only Cardiovascular Hx: HTN Lung Disease HX: DVT/PE and Other Endocrine Hx: Diabetes and Autoimmune disorders Blood Disorder Hx: Hyperlipidemia and Hepatitis Hx: Kidney Disease and Prostate Neurological Hx: Epilepsy/Seizures and Stroke/TIA Cancer HX: No Psych. 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
[2023-12-03 10:44] LABS: Prothrombin Time Whole Bld POC 37.7 sec (11.1-13.5); ~PT, ~INR - Anti Coag Clinic 3.1 (0.9-1.1)
== END 2023-12-03 10:50 | disposition home or self-care (01) ==
LOC: HO.ACS 10:35
PROVIDERS: PCP Physician Assistant Medical; Visit Provider Internal Medicine
DX: Z79.01 Long term (current) use of anticoagulants (principal)

== ENCOUNTER → 2023-12-03 10:35 | Outpatient (BNVA) | payer MEDICARE, SELFPAY | PROVIDERS: PCP Physician Assistant Medical; Visit Provider Internal Medicine | DX: I26.99 Other pulmonary embolism without acute cor pulmonale (principal); Z79.01 Long term (current) use of anticoagulants; Z51.81 Encounter for therapeutic drug level monitoring | CPT/HCPCS: 85610; 99211 ==

== ENCOUNTER 2023-12-31 10:29 | Outpatient (AMB) | payer MEDICARE, SELFPAY ==
[2023-12-31 10:36] LABS: Prothrombin Time Whole Bld POC 51.5 sec (11.1-13.5); ~PT, ~INR - Anti Coag Clinic 4.3 (0.9-1.1)
--- NOTE | 2023-12-31 10:53 | MHC.OFFVISCO ---
Intake Intake Visit Reasons: Anticoagulation Allergies lovenox Allergy (Severe, Uncoded 12/03/23 10:39) bleeding morphine Allergy (Severe, Uncoded 12/03/23 10:39) Rash kepra Adverse Reaction (Severe, Uncoded 12/03/23 10:39) Drowsy Medication List - Last Reconciled 12/31/23 by Magalys Mcdonald RN amoxicillin 2,000 mg PO ONCE PRN azathioprine 150 mg PO DAILY calcium carbonate-vitamin D3 600 mg-10 mcg (400 unit) caps PO DAILY cholecalciferol (vitamin D3) 25 mcg PO DAILY doxazosin 4 mg PO DAILY finasteride 5 mg PO DAILY gabapentin 600 mg PO BID metoprolol tartrate 12.5 mg PO DAILY multivitamin 1 tab PO DAILY nitrofurantoin macrocrystal 100 mg PO .qod omega 3-ayc-mxk-fish oil 1,000 mg (120 mg-180 mg) (Fish Oil) 1 cap PO BID simvastatin 40 mg PO BEDTIME tamsulosin 0.4 mg PO BEDTIME triamcinolone acetonide 0.1% 1 appl topical DAILY PRN warfarin 2.5 mg See Protocol PO DAILY Nursing Note PT.STATES THAT HE HAS HAD MORE CRANBERRY JUICE THAN USUAL THIS WEEK NO CP,SOB,MED CHANGES,FALLS OR SX OF BLEEDING. PT.IS ADV.TO DECREASE USE OF CRANBERRY JUICE DECREASE WARFARIN TODAY TO 2.5MGM THEN RESUME USUAL DOSE AND FOLLOW-UP IN 2 WEEKS. GOOD UNDERSTANDING OF DOSING INSTR. 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
== END 2023-12-31 10:57 | disposition home or self-care (01) ==
LOC: HO.ACS 10:29
PROVIDERS: PCP Physician Assistant Medical; Visit Provider Internal Medicine
DX: Z79.01 Long term (current) use of anticoagulants (principal)

== ENCOUNTER → 2023-12-31 10:29 | Outpatient (BNVA) | payer MEDICARE, SELFPAY | PROVIDERS: PCP Physician Assistant Medical; Visit Provider Internal Medicine | DX: I26.99 Other pulmonary embolism without acute cor pulmonale (principal); Z79.01 Long term (current) use of anticoagulants; Z51.81 Encounter for therapeutic drug level monitoring | CPT/HCPCS: 85610; 99211 ==

== ENCOUNTER 2024-01-14 10:17 | Outpatient (AMB) | payer MEDICARE, SELFPAY ==
--- NOTE | 2024-01-14 10:44 | MHC.OFFVISCO ---
Intake Intake Visit Reasons: Anticoagulation Allergies lovenox Allergy (Severe, Uncoded 01/14/24 10:41) bleeding morphine Allergy (Severe, Uncoded 01/14/24 10:41) Rash kepra Adverse Reaction (Severe, Uncoded 01/14/24 10:41) Drowsy Medication List - Last Reconciled 01/14/24 by Soo Ho RN amoxicillin 2,000 mg PO ONCE PRN azathioprine 150 mg PO DAILY calcium carbonate-vitamin D3 600 mg-10 mcg (400 unit) caps PO DAILY cholecalciferol (vitamin D3) 25 mcg PO DAILY doxazosin 4 mg PO DAILY finasteride 5 mg PO DAILY gabapentin 600 mg PO BID metoprolol tartrate 12.5 mg PO DAILY multivitamin 1 tab PO DAILY nitrofurantoin macrocrystal 100 mg PO .qod omega 9-mzr-dcw-fish oil 1,000 mg (120 mg-180 mg) (Fish Oil) 1 cap PO BID simvastatin 40 mg PO BEDTIME tamsulosin 0.4 mg PO BEDTIME triamcinolone acetonide 0.1% 1 appl topical DAILY PRN warfarin 2.5 mg See Protocol PO DAILY Nursing Note INR: 3.0- in therapeutic range of 2.5-3.5 Medications and supplements reviewed- no changess No changes in health, diet, medications, or supplements, Denies any signs and symptoms of bleeding or bruising or clotting. Bleeding, bruising, clotting discussed Nutritional guidance given Dose: 7.5mg x 3, 5mg x 4 F/U INR: 3 weeks Patient verbalizes understanding of instructions given Anti-Coag Initial Assessment Social Hx Patient Tobacco Use Status: Never used Tobacco alcohol intake: current Alcohol intake frequency: holidays/special occasions only Cardiovascular Hx: HTN Lung Disease HX: DVT/PE and Other Endocrine Hx: Diabetes and Autoimmune disorders Blood Disorder Hx: Hyperlipidemia and Hepatitis Hx: Kidney Disease and Prostate Neurological Hx: Epilepsy/Seizures and Stroke/TIA Cancer HX: No Psych. 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
[2024-01-14 10:45] LABS: Prothrombin Time Whole Bld POC 35.8 sec (11.1-13.5)
== END 2024-01-14 10:50 | disposition home or self-care (01) ==
LOC: HO.ACS 10:17
PROVIDERS: PCP Physician Assistant Medical; Visit Provider Internal Medicine
DX: Z79.01 Long term (current) use of anticoagulants (principal)

== ENCOUNTER → 2024-01-14 10:17 | Outpatient (BNVA) | payer MEDICARE, SELFPAY | PROVIDERS: PCP Physician Assistant Medical; Visit Provider Internal Medicine | DX: I26.99 Other pulmonary embolism without acute cor pulmonale (principal); Z51.81 Encounter for therapeutic drug level monitoring; Z79.01 Long term (current) use of anticoagulants | CPT/HCPCS: 85610; 99211 ==

== ENCOUNTER 2024-02-04 10:36 | Outpatient (AMB) | payer MEDICARE, SELFPAY ==
[2024-02-04 10:43] LABS: Prothrombin Time Whole Bld POC 23.1 sec (11.1-13.5); ~PT, ~INR - Anti Coag Clinic 1.9 (0.9-1.1)
--- NOTE | 2024-02-04 11:08 | MHC.OFFVISCO ---
Intake Intake Visit Reasons: Anticoagulation Allergies lovenox Allergy (Severe, Uncoded 02/04/24 10:36) bleeding morphine Allergy (Severe, Uncoded 02/04/24 10:36) Rash kepra Adverse Reaction (Severe, Uncoded 02/04/24 10:36) Drowsy Medication List - Last Reconciled 02/04/24 by Sultana Romero RN amoxicillin 2,000 mg PO ONCE PRN azathioprine 150 mg PO DAILY calcium carbonate-vitamin D3 600 mg-10 mcg (400 unit) caps PO DAILY cholecalciferol (vitamin D3) 25 mcg PO DAILY doxazosin 4 mg PO DAILY finasteride 5 mg PO DAILY gabapentin 600 mg PO BID metoprolol tartrate 12.5 mg PO DAILY multivitamin 1 tab PO DAILY nitrofurantoin macrocrystal 100 mg PO .qod omega 5-eys-qud-fish oil 1,000 mg (120 mg-180 mg) (Fish Oil) 1 cap PO BID simvastatin 40 mg PO BEDTIME tamsulosin 0.4 mg PO BEDTIME triamcinolone acetonide 0.1% 1 appl topical DAILY PRN warfarin 2.5 mg See Protocol PO DAILY Nursing Note INR 1.9 out of therapeutic range Medications and supplements reviewed Patient status: Missed a dose Friday, called [facility] made up 2.5mg on Friday, will make up more dosing today, no new complaints of s/sx of clotting, Medications or supplements: no changes Diet: good Denies any signs and symptoms of bleeding or clotting or unusual bruising Bleeding, bruising, clotting discussed Nutritional guidance given: avoid greens x 2 days, to have cranberry juice today Dose: missed friday dose booster dose friday 7.5mg / 10mg today/ then resume usual dose F/U INR Date : 02/09/24 ?? Patient verbalizing understanding of instructions given. t/c to PCP with pt status and plan of care spoke with triage line to Insurance Inspector to convey msg to PCP and request call back to [facility] Anti-Coag Initial Assessment Social Hx Patient Tobacco Use Status: Never used Tobacco alcohol intake: current Alcohol intake frequency: holidays/special occasions only Cardiovascular Hx: HTN Lung Disease HX: DVT/PE and Other Endocrine Hx: Diabetes and Autoimmune disorders Blood Disorder Hx: Hyperlipidemia and Hepatitis Hx: Kidney Disease and Prostate Neurological Hx: Epilepsy/Seizures and Stroke/TIA Cancer HX: No Psych. 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
== END 2024-02-04 11:23 | disposition home or self-care (01) ==
LOC: HO.ACS 10:36
PROVIDERS: PCP Physician Assistant Medical; Visit Provider Internal Medicine
DX: Z79.01 Long term (current) use of anticoagulants (principal)

== ENCOUNTER → 2024-02-04 10:36 | Outpatient (BNVA) | payer MEDICARE, SELFPAY | PROVIDERS: PCP Physician Assistant Medical; Visit Provider Internal Medicine | DX: I26.99 Other pulmonary embolism without acute cor pulmonale (principal); Z51.81 Encounter for therapeutic drug level monitoring; Z79.01 Long term (current) use of anticoagulants | CPT/HCPCS: 85610; 99211 ==

== ENCOUNTER 2024-02-09 10:17 | Outpatient (AMB) | payer MEDICARE, SELFPAY ==
[2024-02-09 10:36] LABS: Prothrombin Time Whole Bld POC 33.4 sec (11.1-13.5); ~PT, ~INR - Anti Coag Clinic 2.8 (0.9-1.1)
--- NOTE | 2024-02-09 10:53 | MHC.OFFVISCO ---
Intake Intake Visit Reasons: Anticoagulation Allergies lovenox Allergy (Severe, Uncoded 02/09/24 10:30) bleeding morphine Allergy (Severe, Uncoded 02/09/24 10:30) Rash kepra Adverse Reaction (Severe, Uncoded 02/09/24 10:30) Drowsy Medication List - Last Reconciled 02/09/24 by Deepika Payne, RN amoxicillin 2,000 mg PO ONCE PRN azathioprine 150 mg PO DAILY calcium carbonate-vitamin D3 600 mg-10 mcg (400 unit) caps PO DAILY cholecalciferol (vitamin D3) 25 mcg PO DAILY doxazosin 4 mg PO DAILY finasteride 5 mg PO DAILY gabapentin 600 mg PO BID metoprolol tartrate 12.5 mg PO DAILY multivitamin 1 tab PO DAILY nitrofurantoin macrocrystal 100 mg PO .qod omega 5-voy-pgq-fish oil 1,000 mg (120 mg-180 mg) (Fish Oil) 1 cap PO BID simvastatin 40 mg PO BEDTIME tamsulosin 0.4 mg PO BEDTIME triamcinolone acetonide 0.1% 1 appl topical DAILY PRN warfarin 2.5 mg See Protocol PO DAILY Nursing Note INR: 2.8 in therapeutic range OF 2.5-3.5 Medications and supplements reviewed: NO CHANGES No changes in health, diet, medications, or supplements, Denies any signs and symptoms of bleeding or bruising or clotting. Bleeding, bruising, clotting discussed Nutritional guidance given: TO CONTINUE TO BALANCE REDS AND GREENS Dose: 7.5MG x3DAYS AND 5MG x4 DAYS F/U INR: 3 WEEKS Patient verbalizes understanding of instructions given Anti-Coag Initial Assessment Social Hx Patient Tobacco Use Status: Never used Tobacco alcohol intake: current Alcohol intake frequency: holidays/special occasions only Cardiovascular Hx: HTN Lung Disease HX: DVT/PE and Other Endocrine Hx: Diabetes and Autoimmune disorders Blood Disorder Hx: Hyperlipidemia and Hepatitis Hx: Kidney Disease and Prostate Neurological Hx: Epilepsy/Seizures and Stroke/TIA Cancer HX: No Psych. 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
== END 2024-02-09 11:04 | disposition home or self-care (01) ==
LOC: HO.ACS 10:17
PROVIDERS: PCP Physician Assistant Medical; Visit Provider Internal Medicine
DX: Z79.01 Long term (current) use of anticoagulants (principal)

== ENCOUNTER → 2024-02-09 10:17 | Outpatient (BNVA) | payer MEDICARE, SELFPAY | PROVIDERS: PCP Physician Assistant Medical; Visit Provider Internal Medicine | DX: I26.99 Other pulmonary embolism without acute cor pulmonale (principal); Z79.01 Long term (current) use of anticoagulants; Z51.81 Encounter for therapeutic drug level monitoring | CPT/HCPCS: 85610; 99211 ==

== ENCOUNTER 2024-03-01 11:05 | Outpatient (AMB) | payer MEDICARE, SELFPAY ==
--- NOTE | 2024-03-01 11:08 | MHC.OFFVISCO ---
Intake Intake Visit Reasons: Anticoagulation Allergies lovenox Allergy (Severe, Uncoded 03/01/24 11:09) bleeding morphine Allergy (Severe, Uncoded 03/01/24 11:09) Rash kepra Adverse Reaction (Severe, Uncoded 03/01/24 11:09) Drowsy Medication List - Last Reconciled 03/01/24 by Deepika Payne, RN amoxicillin 2,000 mg PO ONCE PRN azathioprine 150 mg PO DAILY calcium carbonate-vitamin D3 600 mg-10 mcg (400 unit) caps PO DAILY cholecalciferol (vitamin D3) 25 mcg PO DAILY doxazosin 4 mg PO DAILY finasteride 5 mg PO DAILY gabapentin 600 mg PO BID metoprolol tartrate 12.5 mg PO DAILY multivitamin 1 tab PO DAILY nitrofurantoin macrocrystal 100 mg PO .qod omega 9-wei-wut-fish oil 1,000 mg (120 mg-180 mg) (Fish Oil) 1 cap PO BID simvastatin 40 mg PO BEDTIME tamsulosin 0.4 mg PO BEDTIME triamcinolone acetonide 0.1% 1 appl topical DAILY PRN warfarin 2.5 mg See Protocol PO DAILY Nursing Note INR: 3.0 in therapeutic range of 2.5-3.5 Medications and supplements reviewed: no changes No changes in health, diet, medications, or supplements, Denies any signs and symptoms of bleeding or bruising or clotting. Bleeding, bruising, clotting discussed Nutritional guidance given to balance fruits and vegetables Dose: 5mg X 4 days and 7.5mg X 3 days F/U INR: 1 week Patient verbalizes understanding of instructions given Anti-Coag Initial Assessment Social Hx Patient Tobacco Use Status: Never used Tobacco alcohol intake: current Alcohol intake frequency: holidays/special occasions only Cardiovascular Hx: HTN Lung Disease HX: DVT/PE and Other Endocrine Hx: Diabetes and Autoimmune disorders Blood Disorder Hx: Hyperlipidemia and Hepatitis Hx: Kidney Disease and Prostate Neurological Hx: Epilepsy/Seizures and Stroke/TIA Cancer HX: No Psych. 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
[2024-03-01 11:13] LABS: Prothrombin Time Whole Bld POC 36.4 sec (11.1-13.5)
== END 2024-03-01 11:39 | disposition home or self-care (01) ==
LOC: HO.ACS 11:05
PROVIDERS: PCP Physician Assistant Medical; Visit Provider Internal Medicine
DX: Z79.01 Long term (current) use of anticoagulants (principal)

== ENCOUNTER → 2024-03-01 11:05 | Outpatient (BNVA) | payer MEDICARE, SELFPAY | PROVIDERS: PCP Physician Assistant Medical; Visit Provider Internal Medicine | DX: I26.99 Other pulmonary embolism without acute cor pulmonale (principal); Z79.01 Long term (current) use of anticoagulants; Z51.81 Encounter for therapeutic drug level monitoring | CPT/HCPCS: 85610; 99211 ==

== ENCOUNTER 2024-03-08 10:40 | Outpatient (AMB) | payer MEDICARE, SELFPAY ==
[2024-03-08 10:52] LABS: Prothrombin Time Whole Bld POC 46.3 sec (11.1-13.5); ~PT, ~INR - Anti Coag Clinic 3.9 (0.9-1.1)
--- NOTE | 2024-03-08 11:05 | MHC.OFFVISCO ---
Intake Intake Visit Reasons: Anticoagulation Allergies lovenox Allergy (Severe, Uncoded 03/08/24 10:43) bleeding morphine Allergy (Severe, Uncoded 03/08/24 10:43) Rash kepra Adverse Reaction (Severe, Uncoded 03/08/24 10:43) Drowsy Medication List - Last Reconciled 03/08/24 by Deepika Payne, RN amoxicillin 2,000 mg PO ONCE PRN azathioprine 150 mg PO DAILY calcium carbonate-vitamin D3 600 mg-10 mcg (400 unit) caps PO DAILY cholecalciferol (vitamin D3) 25 mcg PO DAILY doxazosin 4 mg PO DAILY finasteride 5 mg PO DAILY gabapentin 600 mg PO BID metoprolol tartrate 12.5 mg PO DAILY multivitamin 1 tab PO DAILY nitrofurantoin macrocrystal 100 mg PO .qod omega 8-zct-tik-fish oil 1,000 mg (120 mg-180 mg) (Fish Oil) 1 cap PO BID simvastatin 40 mg PO BEDTIME tamsulosin 0.4 mg PO BEDTIME triamcinolone acetonide 0.1% 1 appl topical DAILY PRN warfarin 2.5 mg See Protocol PO DAILY Nursing Note INR 3.9?out of therapeutic range of 2.5-3.5 Medications and supplements reviewed Patient status: Medications or supplements: no changes Diet: out of norm for pt as has been in [place] with a friend for past 2 weeks Denies any signs and symptoms of bleeding or clotting or unusual bruising Bleeding, bruising, clotting discussed Nutritional guidance given: to have greens today Dose: decrease today's dose to 5mg (7.5mg) then resume usual dose of 5mg X 4 days and 7.5mg X 3 days F/U INR Date : 3 weeks?? Patient verbalizing understanding of instructions given. 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
== END 2024-03-08 11:11 | disposition home or self-care (01) ==
LOC: HO.ACS 10:40
PROVIDERS: PCP Physician Assistant Medical; Visit Provider Internal Medicine
DX: Z79.01 Long term (current) use of anticoagulants (principal)

== ENCOUNTER → 2024-03-08 10:40 | Outpatient (BNVA) | payer MEDICARE, SELFPAY | PROVIDERS: PCP Physician Assistant Medical; Visit Provider Internal Medicine | DX: I26.99 Other pulmonary embolism without acute cor pulmonale (principal); Z79.01 Long term (current) use of anticoagulants; Z51.81 Encounter for therapeutic drug level monitoring | CPT/HCPCS: 85610; 99211 ==

== ENCOUNTER 2024-03-29 10:47 | Outpatient (AMB) | payer MEDICARE, SELFPAY ==
[2024-03-29 11:43] LABS: Prothrombin Time Whole Bld POC 47.3 sec (11.1-13.5); ~PT, ~INR - Anti Coag Clinic 3.9 (0.9-1.1)
--- NOTE | 2024-03-29 11:51 | MHC.OFFVISCO ---
Intake Intake Visit Reasons: Anticoagulation Allergies lovenox Allergy (Severe, Uncoded 03/29/24 11:37) bleeding morphine Allergy (Severe, Uncoded 03/29/24 11:37) Rash kepra Adverse Reaction (Severe, Uncoded 03/29/24 11:37) Drowsy Medication List - Last Reconciled 03/29/24 by Deepika Payne, RN amoxicillin 2,000 mg PO ONCE PRN azathioprine 150 mg PO DAILY calcium carbonate-vitamin D3 600 mg-10 mcg (400 unit) caps PO DAILY cholecalciferol (vitamin D3) 25 mcg PO DAILY doxazosin 4 mg PO DAILY finasteride 5 mg PO DAILY gabapentin 600 mg PO BID metoprolol tartrate 12.5 mg PO DAILY multivitamin 1 tab PO DAILY nitrofurantoin macrocrystal 100 mg PO .qod omega 9-lzx-mvf-fish oil 1,000 mg (120 mg-180 mg) (Fish Oil) 1 cap PO BID simvastatin 40 mg PO BEDTIME tamsulosin 0.4 mg PO BEDTIME triamcinolone acetonide 0.1% 1 appl topical DAILY PRN warfarin 2.5 mg See Protocol PO DAILY Nursing Note INR 3.9?out of therapeutic range of 2.5-3.5 Medications and supplements reviewed Pt stated he went to MD in the days after his last [facility] appt. MD prescribed Celebrex for back pain and also Prednisone. He did not take Prednisone as he says it makes him anxious. He did take the Celebrex and failed to report it to us. 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 SHe told pt to stop Celebrex because it could raise his INR. He does state his back pain is better. Patient status: feels well Diet: usual diet for pt Denies any signs and symptoms of bleeding or clotting or unusual bruising Bleeding, bruising, clotting discussed Nutritional guidance given: to have a serving of greens today. Food list reviewed and pt states he will have broccoli. Dose: decrease today's dose to 5mg (7.5mg) then resume F/U INR Date : 2 weeks?? Patient verbalizing understanding of instructions given. 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
== END 2024-03-29 11:59 | disposition home or self-care (01) ==
LOC: HO.ACS 10:47
PROVIDERS: PCP Physician Assistant Medical; Visit Provider Internal Medicine
DX: Z79.01 Long term (current) use of anticoagulants (principal)

== ENCOUNTER → 2024-03-29 10:47 | Outpatient (BNVA) | payer MEDICARE, SELFPAY | PROVIDERS: PCP Physician Assistant Medical; Visit Provider Internal Medicine | DX: I26.99 Other pulmonary embolism without acute cor pulmonale (principal); Z51.81 Encounter for therapeutic drug level monitoring; Z79.01 Long term (current) use of anticoagulants | CPT/HCPCS: 85610; 99211 ==

== ENCOUNTER 2024-04-14 09:49 | Outpatient (AMB) | payer MEDICARE, SELFPAY ==
--- NOTE | 2024-04-14 09:58 | MHC.OFFVISCO ---
Intake Intake Visit Reasons: Anticoagulation Allergies lovenox Allergy (Severe, Uncoded 04/14/24 09:50) bleeding morphine Allergy (Severe, Uncoded 04/14/24 09:50) Rash kepra Adverse Reaction (Severe, Uncoded 04/14/24 09:50) Drowsy Medication List - Last Reconciled 04/14/24 by Soo Ho RN amoxicillin 2,000 mg PO ONCE PRN azathioprine 150 mg PO DAILY calcium carbonate-vitamin D3 600 mg-10 mcg (400 unit) caps PO DAILY cholecalciferol (vitamin D3) 25 mcg PO DAILY doxazosin 4 mg PO DAILY finasteride 5 mg PO DAILY gabapentin 600 mg PO BID metoprolol tartrate 12.5 mg PO DAILY multivitamin 1 tab PO DAILY nitrofurantoin macrocrystal 100 mg PO .qod omega 6-iln-jnz-fish oil 1,000 mg (120 mg-180 mg) (Fish Oil) 1 cap PO BID simvastatin 40 mg PO BEDTIME tamsulosin 0.4 mg PO BEDTIME triamcinolone acetonide 0.1% 1 appl topical DAILY PRN warfarin 2.5 mg See Protocol PO DAILY Nursing Note INR: 3.2- in therapeutic range of 2.5-3.5 Medications and supplements reviewed- celebrex prn, states not taking. aware bleed risk No changes in health, diet, medications, or supplements, Denies any signs and symptoms of bleeding or bruising or clotting. Bleeding, bruising, clotting discussed Nutritional guidance given Dose: keep same dosing- 7.5mg x 3, 5mg x 4 F/U INR: pt req 4 weeks Patient verbalizes understanding of instructions given pt to start physical therapy for strengthing Anti-Coag Initial Assessment Social Hx Patient Tobacco Use Status: Never used Tobacco alcohol intake: current Alcohol intake frequency: holidays/special occasions only Cardiovascular Hx: HTN Lung Disease HX: DVT/PE and Other Endocrine Hx: Diabetes and Autoimmune disorders Blood Disorder Hx: Hyperlipidemia and Hepatitis Hx: Kidney Disease and Prostate Neurological Hx: Epilepsy/Seizures and Stroke/TIA Cancer HX: No Psych. Illness/Depression: No Coding Level of Care Code Est Patient Level 1 Diagnoses Current use of anticoagulant therapy Z79.01 Assessment & Plan Assessment & Plan (1) Current use of anticoagulant therapy: Code(s): Z79.01 - retirement (current) use of anticoagulants Category: Medical Medications: New celecoxib (Celebrex) 200 mg PO DAILY PRN
[2024-04-14 09:59] LABS: Prothrombin Time Whole Bld POC 38.8 sec (11.1-13.5); ~PT, ~INR - Anti Coag Clinic 3.2 (0.9-1.1)
== END 2024-04-14 10:05 | disposition home or self-care (01) ==
LOC: HO.ACS 09:49
PROVIDERS: PCP Physician Assistant Medical; Visit Provider Internal Medicine
DX: Z79.01 Long term (current) use of anticoagulants (principal)

== ENCOUNTER → 2024-04-14 09:49 | Outpatient (BNVA) | payer MEDICARE, SELFPAY | PROVIDERS: PCP Physician Assistant Medical; Visit Provider Internal Medicine | DX: I26.99 Other pulmonary embolism without acute cor pulmonale (principal); Z79.01 Long term (current) use of anticoagulants; Z51.81 Encounter for therapeutic drug level monitoring | CPT/HCPCS: 85610; 99211 ==

== ENCOUNTER 2024-05-12 09:58 | Outpatient (AMB) | payer MEDICARE, SELFPAY ==
--- NOTE | 2024-05-12 10:19 | MHC.OFFVISCO ---
Intake Intake Visit Reasons: Anticoagulation Allergies lovenox Allergy (Severe, Uncoded 05/12/24 10:14) bleeding morphine Allergy (Severe, Uncoded 05/12/24 10:14) Rash kepra Adverse Reaction (Severe, Uncoded 05/12/24 10:14) Drowsy Medication List - Last Reconciled 05/12/24 by Soo Ho RN amoxicillin 2,000 mg PO ONCE PRN azathioprine 150 mg PO DAILY calcium carbonate-vitamin D3 600 mg-10 mcg (400 unit) caps PO DAILY celecoxib (Celebrex) 200 mg PO DAILY PRN cholecalciferol (vitamin D3) 25 mcg PO DAILY doxazosin 4 mg PO DAILY finasteride 5 mg PO DAILY gabapentin 600 mg PO BID metoprolol tartrate 12.5 mg PO DAILY multivitamin 1 tab PO DAILY nitrofurantoin macrocrystal 100 mg PO .qod omega 6-gfu-gug-fish oil 1,000 mg (120 mg-180 mg) (Fish Oil) 1 cap PO BID simvastatin 40 mg PO BEDTIME tamsulosin 0.4 mg PO BEDTIME triamcinolone acetonide 0.1% 1 appl topical DAILY PRN warfarin 2.5 mg See Protocol PO DAILY Nursing Note INR 3.8-?? out of therapeutic range of 2.5-3.5 Medications and supplements reviewed Patient status: pt c.o increased stress, also going to physical therapy for back pain Medications or supplements: no changes, tylenol prn Diet: appetite is less Denies any signs and symptoms of bleeding or clotting or unusual bruising Bleeding, bruising, clotting discussed Nutritional guidance given: eat greens to lower Dose: reduce today to 5mg then cont 7.5mg x 3, 5mg x 4 F/U INR Date : pt ref earlier appt than 3 weeks? Patient verbalizing understanding of instructions given. 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
[2024-05-13 09:49] LABS: Prothrombin Time Whole Bld POC 45.8 sec (11.1-13.5); ~PT, ~INR - Anti Coag Clinic 3.8 (0.9-1.1)
== END 2024-05-12 10:30 | disposition home or self-care (01) ==
LOC: HO.ACS 09:58
PROVIDERS: PCP Physician Assistant Medical; Visit Provider Internal Medicine
DX: Z79.01 Long term (current) use of anticoagulants (principal)

== ENCOUNTER → 2024-05-12 09:58 | Outpatient (BNVA) | payer MEDICARE, SELFPAY | PROVIDERS: PCP Physician Assistant Medical; Visit Provider Internal Medicine | DX: I26.99 Other pulmonary embolism without acute cor pulmonale (principal); Z79.01 Long term (current) use of anticoagulants; Z51.81 Encounter for therapeutic drug level monitoring | CPT/HCPCS: 85610; 99211 ==

== ENCOUNTER 2024-06-02 11:02 | Outpatient (AMB) | payer MEDICARE, SELFPAY ==
[2024-06-02 11:16] LABS: Prothrombin Time Whole Bld POC 41.4 sec (11.1-13.5); ~PT, ~INR - Anti Coag Clinic 3.5 (0.9-1.1)
--- NOTE | 2024-06-02 11:30 | MHC.OFFVISCO ---
Intake Intake Visit Reasons: Anticoagulation Allergies lovenox Allergy (Severe, Uncoded 05/12/24 10:14) bleeding morphine Allergy (Severe, Uncoded 05/12/24 10:14) Rash kepra Adverse Reaction (Severe, Uncoded 05/12/24 10:14) Drowsy Medication List - Last Reconciled 06/02/24 by Magalys Mcdonald RN amoxicillin 2,000 mg PO ONCE PRN azathioprine 150 mg PO DAILY calcium carbonate-vitamin D3 600 mg-10 mcg (400 unit) caps PO DAILY celecoxib (Celebrex) 200 mg PO DAILY PRN cholecalciferol (vitamin D3) 25 mcg PO DAILY doxazosin 4 mg PO DAILY finasteride 5 mg PO DAILY gabapentin 600 mg PO BID metoprolol tartrate 12.5 mg PO DAILY multivitamin 1 tab PO DAILY nitrofurantoin macrocrystal 100 mg PO .qod omega 4-mmh-gcq-fish oil 1,000 mg (120 mg-180 mg) (Fish Oil) 1 cap PO BID simvastatin 40 mg PO BEDTIME tamsulosin 0.4 mg PO BEDTIME triamcinolone acetonide 0.1% 1 appl topical DAILY PRN warfarin 2.5 mg See Protocol PO DAILY Nursing Note NO CP,SOB,DIET/ED CHANGES,FALLS OR SX OF BLEEDING. CONTINUE PRESENT DOSE AND FOLLOW-UP IN 4 WEEKS. GOOD UNDERSTANDING OF DOSING INSTR. 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 Illness/Depression: No Coding Level of Care Code Est Patient Level 1 Diagnoses Current use of anticoagulant therapy Z79.01 Assessment & Plan Assessment & Plan (1) Current use of anticoagulant therapy: Code(s): Z79.01 - longterm (current) use of anticoagulants Category: Medical
== END 2024-06-02 11:43 | disposition home or self-care (01) ==
LOC: HO.ACS 11:02
PROVIDERS: PCP Physician Assistant Medical; Visit Provider Internal Medicine
DX: Z79.01 Long term (current) use of anticoagulants (principal)

== ENCOUNTER → 2024-06-02 11:02 | Outpatient (BNVA) | payer MEDICARE, SELFPAY | PROVIDERS: PCP Physician Assistant Medical; Visit Provider Internal Medicine | DX: I26.99 Other pulmonary embolism without acute cor pulmonale (principal); Z79.01 Long term (current) use of anticoagulants; Z51.81 Encounter for therapeutic drug level monitoring | CPT/HCPCS: 85610; 99211 ==

== ENCOUNTER 2024-06-30 11:00 | Outpatient (AMB) | payer MEDICARE, SELFPAY ==
[2024-06-30 11:08] LABS: ~PT, ~INR - Anti Coag Clinic 3.5 (0.9-1.1)
--- NOTE | 2024-06-30 11:15 | MHC.OFFVISCO ---
Intake Intake Visit Reasons: Anticoagulation Allergies lovenox Allergy (Severe, Uncoded 05/12/24 10:14) bleeding morphine Allergy (Severe, Uncoded 05/12/24 10:14) Rash kepra Adverse Reaction (Severe, Uncoded 05/12/24 10:14) Drowsy Medication List - Last Reconciled 06/30/24 by Magalys Mcdonald RN amoxicillin 2,000 mg PO ONCE PRN azathioprine 150 mg PO DAILY calcium carbonate-vitamin D3 600 mg-10 mcg (400 unit) caps PO DAILY celecoxib (Celebrex) 200 mg PO DAILY PRN cholecalciferol (vitamin D3) 25 mcg PO DAILY doxazosin 4 mg PO DAILY finasteride 5 mg PO DAILY gabapentin 600 mg PO BID metoprolol tartrate 12.5 mg PO DAILY multivitamin 1 tab PO DAILY nitrofurantoin macrocrystal 100 mg PO .qod omega 4-onb-sue-fish oil 1,000 mg (120 mg-180 mg) (Fish Oil) 1 cap PO BID simvastatin 40 mg PO BEDTIME tamsulosin 0.4 mg PO BEDTIME triamcinolone acetonide 0.1% 1 appl topical DAILY PRN warfarin 2.5 mg See Protocol PO DAILY Nursing Note NO CP,SOB,DIET/MED CHANGES,FALLS OR SX OF BLEEDING. CONTINUE PRESENT DOSE AND FOLLOW-UP IN 4 WEEKS. GOOD UNDERSTANDING OF DOSING INSTR. 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 Illness/Depression: No Coding Level of Care Code Est Patient Level 1 Diagnoses Current use of anticoagulant therapy Z79.01 Results AMB INR Fingerstick AMB INR Fingerstick 3.5 Last Edit by Magalys Mcdonald RN on 06/30/24 11:11 Assessment & Plan Assessment & Plan (1) Current use of anticoagulant therapy: Code(s): Z79.01 - USP (current) use of anticoagulants Category: Medical
== END 2024-06-30 11:19 | disposition home or self-care (01) ==
LOC: HO.ACS 11:00
PROVIDERS: PCP Physician Assistant Medical; Visit Provider Internal Medicine
DX: Z79.01 Long term (current) use of anticoagulants (principal)

== ENCOUNTER → 2024-06-30 11:00 | Outpatient (BNVA) | payer MEDICARE, SELFPAY | PROVIDERS: PCP Physician Assistant Medical; Visit Provider Internal Medicine | DX: I26.99 Other pulmonary embolism without acute cor pulmonale (principal); Z79.01 Long term (current) use of anticoagulants; Z51.81 Encounter for therapeutic drug level monitoring | CPT/HCPCS: 85610; 99211 ==

== ENCOUNTER 2024-07-28 10:34 | Outpatient (AMB) | payer MEDICARE, SELFPAY ==
[2024-07-28 10:44] LABS: ~PT, ~INR - Anti Coag Clinic 3.4 (0.9-1.1)
--- NOTE | 2024-07-28 11:01 | MHC.OFFVISCO ---
Intake Intake Visit Reasons: Anticoagulation Allergies lovenox Allergy (Severe, Uncoded 07/28/24 10:37) bleeding morphine Allergy (Severe, Uncoded 07/28/24 10:37) Rash kepra Adverse Reaction (Severe, Uncoded 07/28/24 10:37) Drowsy Medication List - Last Reconciled 07/28/24 by Deepika Peguero RN amoxicillin 2,000 mg PO ONCE PRN azathioprine 150 mg PO DAILY calcium carbonate-vitamin D3 600 mg-10 mcg (400 unit) caps PO DAILY cholecalciferol (vitamin D3) 25 mcg PO DAILY doxazosin 4 mg PO DAILY finasteride 5 mg PO DAILY gabapentin 600 mg PO BID metoprolol tartrate 12.5 mg PO DAILY multivitamin 1 tab PO DAILY nitrofurantoin macrocrystal 100 mg PO .qod omega 2-swk-swu-fish oil 1,000 mg (120 mg-180 mg) (Fish Oil) 1 cap PO BID simvastatin 40 mg PO BEDTIME tamsulosin 0.4 mg PO BEDTIME triamcinolone acetonide 0.1% 1 appl topical DAILY PRN warfarin 2.5 mg See Protocol PO DAILY Nursing Note Amb to ACS feeling well Medications and supplements reviewed No changes in health, diet, medications, or supplements, Denies any signs and symptoms of bleeding, bruising, or clotting. Bleeding, bruising, clotting discussed INR: 3.4 in therapeutic range (2.5-3.5) pt then indicated that he was scheduled for a MOHs procedure through [facility] on 08/04 with instructions to hold warfarin day before, day of and day after. Sts his PCP is aware Dose: continue usual dosing 7.5mg x 3 days and 5mg x 4 days until hold for procedure, then resume warfarin 7.5mg on 08/06,,and and usual dosing pattern 08/09 no greens when resuming warfarin F/U INR: 2 weeks 08/11 Patient verbalizes understanding of instructions givenand will call patient if any dosing changes from PCP message left for PCP with procedure, hold, lovenox allergy, INR today and range and dosing with call back number Anti-Coag Initial Assessment Social Hx Patient Tobacco Use Status: Never used Tobacco alcohol intake: current Alcohol intake frequency: holidays/special occasions only Cardiovascular Hx: HTN Lung Disease HX: DVT/PE and Other Endocrine Hx: Diabetes and Autoimmune disorders Blood Disorder Hx: Hyperlipidemia and Hepatitis Hx: Kidney Disease and Prostate Neurological Hx: Epilepsy/Seizures and Stroke/TIA Cancer HX: No Psych. Illness/Depression: No Coding Level of Care Code Est Patient Level 1 Diagnoses Current use of anticoagulant therapy Z79.01 Time Spent (min) 20 Assessment & Plan Assessment & Plan (1) Current use of anticoagulant therapy: Code(s): Z79.01 - penitentiary (current) use of anticoagulants Category: Medical
== END 2024-07-28 11:18 | disposition home or self-care (01) ==
LOC: HO.ACS 10:34
PROVIDERS: PCP Physician Assistant Medical; Visit Provider Internal Medicine
DX: Z79.01 Long term (current) use of anticoagulants (principal)

== ENCOUNTER → 2024-07-28 10:34 | Outpatient (BNVA) | payer MEDICARE, SELFPAY | PROVIDERS: PCP Physician Assistant Medical; Visit Provider Internal Medicine | DX: I26.99 Other pulmonary embolism without acute cor pulmonale (principal); Z79.01 Long term (current) use of anticoagulants; Z51.81 Encounter for therapeutic drug level monitoring | CPT/HCPCS: 85610; 99211 ==

== ENCOUNTER 2024-08-11 10:24 | Outpatient (AMB) | payer MEDICARE, SELFPAY ==
--- NOTE | 2024-08-11 10:38 | MHC.OFFVISCO ---
Intake Intake Visit Reasons: Anticoagulation Allergies lovenox Allergy (Severe, Uncoded 08/11/24 10:32) bleeding morphine Allergy (Severe, Uncoded 08/11/24 10:32) Rash kepra Adverse Reaction (Severe, Uncoded 08/11/24 10:32) Drowsy Medication List - Last Reconciled 08/11/24 by Soo Ho RN amoxicillin 2,000 mg PO ONCE PRN azathioprine 150 mg PO DAILY calcium carbonate-vitamin D3 600 mg-10 mcg (400 unit) caps PO DAILY cholecalciferol (vitamin D3) 25 mcg PO DAILY doxazosin 4 mg PO DAILY finasteride 5 mg PO DAILY gabapentin 600 mg PO BID metoprolol tartrate 12.5 mg PO DAILY multivitamin 1 tab PO DAILY nitrofurantoin macrocrystal 100 mg PO .qod omega 9-nqx-brr-fish oil 1,000 (120-180) mg (Fish Oil) 1 cap PO BID simvastatin 40 mg PO BEDTIME tamsulosin 0.4 mg PO BEDTIME triamcinolone acetonide 0.1% 1 appl topical DAILY PRN warfarin 2.5 mg See Protocol PO DAILY Nursing Note INR 2.3-?? out of therapeutic range of 2.5-3.5 Medications and supplements reviewed Patient status: s/p moh's proc right cheek, suture removal fri 08/13/24, pt held warfarin for 3 days Medications or supplements: unsure if new meds post proc Diet: same Denies any signs and symptoms of bleeding or clotting or unusual bruising Bleeding, bruising, clotting discussed Nutritional guidance given: no greens for 2 days, eat reds to raise Dose: 7.5mg today and tomm then cont 7.5mg x 3, 5mg x 4 F/U INR Date : 1 week? Patient verbalizing understanding of instructions given. 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 Illness/Depression: No Questionnaires HAS-BLED Does the patient had uncontrolled Hypertension?: No Does the patient have renal disease?: Yes Does the patient have liver disease?: No Does the patient have a history of stroke?: No Has the patient had major bleeding or predisposition to bleeding?: No Does the patient have labile INRs?: No Is the patient over 65 years of age?: Yes Is the patient on medications that gives them a predisposition to bleeding?: Yes Does the patient use alcohol?: No HAS-BLED Score: 3 CHADSVASC Age: 75 or over Gender: Male Does the patient have a history of CHF?: No Does the patient have a history of Hypertension?: Yes Does the patient have a history of Stroke/TIA/Thromboembolism?: No Does the patient have a history of Vascular Disease (prior NE, PAD or aortic plaque)?: No Does the patient have a history of Diabetes?: Yes CHADS VACS Score: 4 Delvin Prediction Score Rsk VTE Active Cancer: Yes Previous VTE, excluding superficial vein thrombosis: No Reduced mobility: No Already known Thrombophilic Condition: Yes With-in last month Trauma and/or Surgery: Yes Elderly 70 year or older: Yes Heart and/or Respiratory Failure: No Acute Myocardial infarction and/or Ischemic Stroke: No Acute Infection and/or Rheumatologic Disorder: No Obesity (BMI 30 or greater): Yes Ongoing Hormonal Treatment: No Score: 10 Delvin Score less than 4; Low Risk of VTE Delvin Score 4 or greater; High Risk of VTE Coding Level of Care Code Est Patient Level 1 Diagnoses Current use of anticoagulant therapy Z79.01 Results AMB INR Fingerstick AMB INR Fingerstick 2.3 Last Edit by Soo Ho RN on 08/11/24 10:40 interface delay Assessment & Plan Assessment & Plan (1) Current use of anticoagulant therapy: Code(s): Z79.01 - assisted (current) use of anticoagulants Category: Medical
[2024-08-12 09:30] LABS: Prothrombin Time Whole Bld POC 27.8 sec (11.1-13.5); ~PT, ~INR - Anti Coag Clinic 2.3 (0.9-1.1)
== END 2024-08-11 11:22 | disposition home or self-care (01) ==
LOC: HO.ACS 10:24
PROVIDERS: PCP Physician Assistant Medical; Visit Provider Internal Medicine
DX: Z79.01 Long term (current) use of anticoagulants (principal)

== ENCOUNTER → 2024-08-11 10:24 | Outpatient (BNVA) | payer MEDICARE, SELFPAY | PROVIDERS: PCP Physician Assistant Medical; Visit Provider Internal Medicine | DX: I26.99 Other pulmonary embolism without acute cor pulmonale (principal); Z79.01 Long term (current) use of anticoagulants; Z51.81 Encounter for therapeutic drug level monitoring | CPT/HCPCS: 85610; 99211 ==

== ENCOUNTER 2024-08-18 10:50 | Outpatient (AMB) | payer MEDICARE, SELFPAY ==
--- NOTE | 2024-08-18 11:17 | MHC.OFFVISCO ---
Intake Intake Visit Reasons: Anticoagulation Allergies lovenox Allergy (Severe, Uncoded 08/18/24 11:08) bleeding morphine Allergy (Severe, Uncoded 08/18/24 11:08) Rash kepra Adverse Reaction (Severe, Uncoded 08/18/24 11:08) Drowsy Medication List - Last Reconciled 08/18/24 by Soo Ho RN amoxicillin 2,000 mg PO ONCE PRN azathioprine 150 mg PO DAILY calcium carbonate-vitamin D3 600 mg-10 mcg (400 unit) caps PO DAILY cholecalciferol (vitamin D3) 25 mcg PO DAILY finasteride 5 mg PO DAILY gabapentin 600 mg PO BID metoprolol tartrate 12.5 mg PO DAILY multivitamin 1 tab PO DAILY nitrofurantoin macrocrystal 100 mg PO .qod omega 4-vtf-vuh-fish oil 1,000 (120-180) mg (Fish Oil) 1 cap PO BID simvastatin 40 mg PO BEDTIME tamsulosin 0.4 mg PO BEDTIME triamcinolone acetonide 0.1% 1 appl topical DAILY PRN warfarin 2.5 mg See Protocol PO DAILY Nursing Note INR: 3.1- in therapeutic range of 2.5- 3.5 Medications and supplements reviewed- pt states doxazosin d/c due to bradycardia No changes in health, diet, medications, or supplements, Denies any signs and symptoms of bleeding or bruising or clotting. Bleeding, bruising, clotting discussed Nutritional guidance given Dose: 7.5mg x 3, 5mg x 4 F/U INR: 2 weeks Patient verbalizes understanding of instructions given jpt states missed a dose warfarin on friday, called acs on friday, dose adj on Anti-Coag Initial Assessment Social Hx Patient Tobacco Use Status: Never used Tobacco alcohol intake: current Alcohol intake frequency: holidays/special occasions only Cardiovascular Hx: HTN Lung Disease HX: DVT/PE and Other Endocrine Hx: Diabetes and Autoimmune disorders Blood Disorder Hx: Hyperlipidemia and Hepatitis Hx: Kidney Disease and Prostate Neurological Hx: Epilepsy/Seizures and Stroke/TIA Cancer HX: No Psych. Illness/Depression: No Coding Level of Care Code Est Patient Level 1 Diagnoses Current use of anticoagulant therapy Z79.01 Assessment & Plan Assessment & Plan (1) Current use of anticoagulant therapy: Code(s): Z79.01 - emt intermediate (current) use of anticoagulants Category: Medical Medications: Changed From metoprolol tartrate 12.5 mg PO DAILY To metoprolol tartrate 12.5 mg PO BID
[2024-08-18 11:18] LABS: Prothrombin Time Whole Bld POC 36.8 sec (11.1-13.5); ~PT, ~INR - Anti Coag Clinic 3.1 (0.9-1.1)
== END 2024-08-18 11:25 | disposition home or self-care (01) ==
LOC: HO.ACS 10:50
PROVIDERS: PCP Physician Assistant Medical; Visit Provider Internal Medicine
DX: Z79.01 Long term (current) use of anticoagulants (principal)

== ENCOUNTER → 2024-08-18 10:50 | Outpatient (BNVA) | payer MEDICARE, SELFPAY | PROVIDERS: PCP Physician Assistant Medical; Visit Provider Internal Medicine | DX: I26.99 Other pulmonary embolism without acute cor pulmonale (principal); Z79.01 Long term (current) use of anticoagulants; Z51.81 Encounter for therapeutic drug level monitoring | CPT/HCPCS: 85610; 99211 ==

== ENCOUNTER 2024-09-01 10:19 | Outpatient (AMB) | payer MEDICARE, SELFPAY ==
--- NOTE | 2024-09-01 10:26 | MHC.OFFVISCO ---
Intake Intake Visit Reasons: Anticoagulation Allergies lovenox Allergy (Severe, Uncoded 09/01/24 10:22) bleeding morphine Allergy (Severe, Uncoded 09/01/24 10:22) Rash kepra Adverse Reaction (Severe, Uncoded 09/01/24 10:22) Drowsy Medication List - Last Reconciled 09/01/24 by Soo Ho RN amoxicillin 2,000 mg PO ONCE PRN azathioprine 150 mg PO DAILY calcium carbonate-vitamin D3 600 mg-10 mcg (400 unit) caps PO DAILY cholecalciferol (vitamin D3) 25 mcg PO DAILY finasteride 5 mg PO DAILY gabapentin 600 mg PO BID metoprolol tartrate 12.5 mg PO BID multivitamin 1 tab PO DAILY nitrofurantoin macrocrystal 100 mg PO .qod omega 3-zvz-gmb-fish oil 1,000 (120-180) mg (Fish Oil) 1 cap PO BID simvastatin 40 mg PO BEDTIME tamsulosin 0.4 mg PO BEDTIME triamcinolone acetonide 0.1% 1 appl topical DAILY PRN warfarin 2.5 mg See Protocol PO DAILY Nursing Note INR 3.9-? out of therapeutic range 2.5-3.5 Medications and supplements reviewed Patient status: c.o stress Medications or supplements: no changes Diet: same Denies any signs and symptoms of bleeding or clotting or unusual bruising Bleeding, bruising, clotting discussed Nutritional guidance given: eat greens to lower, no reds for 2 days Dose: take 5mg today then cont reg dosing, 7.5mg x 3, 5mg x 4 F/U INR Date : 2 weeks?? Patient verbalizing understanding of instructions given. 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
[2024-09-01 10:27] LABS: Prothrombin Time Whole Bld POC 47.3 sec (11.1-13.5); ~PT, ~INR - Anti Coag Clinic 3.9 (0.9-1.1)
--- OUTSIDE RECORDS SUMMARY | 2024-09-02 00:16 | XMS_ITS ---
Author Organization [facility] Address [address] [place] [address] Care Team Providers Care Flower Picker Name Role Phone JUMANA HERNANDEZ Primary Care Provider CHRISTINA WALTERS Unavailable [phone] REASON FOR VISIT FYI and TY message Encounters Encounter Location Date Provider Diagnosis [facility] [address] [facility] [address] [place] [address] 08/24/2024 JUMANA HERNANDEZ PLAN OF TREATMENT Next Appt Details Provider Name:CHRISTINA WALTERS, 11/18/2024 11:30:00 AM, [address], [place], [address], Progress Notes * IRVIN SUAZODOB:[birth year] (79 yo M)Acc No.[id number]:08/24/2024 Patient:??IRVIN SUAZO PIPPA ID :[id number]?Age:79 Y?Sex:Meliza sarthak Address:[address] [place] [address] * true * Date:??
--- OUTSIDE RECORDS SUMMARY | 2024-09-02 00:16 | XMS_ITS ---
Author Organization [employer] [facility] Address [address] [facility] [place] [address] Care Team Providers Care Student Admissions Clerk Name Role Phone JUMANA HERNANDEZ Primary Care Provider [phone] CHRISTINA WALTERS Unavailable [phone] REASON FOR VISIT CCM Encounters Encounter Location Date Provider Diagnosis [facility] [address] [facility] [address] [place] [address] 08/27/2024 JUMANA HERNANDEZ PLAN OF TREATMENT Next Appt Details Provider Name:CHRISTINA WALTERS, 11/18/2024 11:30:00 AM, [address], [place], [address], Progress Notes * IRVIN SUAZODOB:[birth year] (79 yo M)Acc No.[id number]:08/27/2024 Patient:??LAKEISHA IRVIN PIPPA ID :[id number]?Age:79 Y?Sex:Ma sarthak Address:[address] [place] [address] * true * Date:??
--- OUTSIDE RECORDS SUMMARY | 2024-09-02 00:16 | XMS_ITS | Patient Health Record ---
Author Organization [facility] Address [address] [place] [address] Care Team Providers Care Bus Driver Name Role Phone INFANTEJUMANA Primary Care Provider CHRISTINA WALTERS [phone] ALLERGIES Allergen (clinical drug ingredient) Drug/Non Drug Allergy documented on EMR Reaction Allergy Type Onset Date Status morphine morphine (uncoded) Unknown Allergy A ctive enoxaparin Lovenox BLEEDS Drug Allergy Active RESULTS Component Value Reference Range Notes URINALYSIS Reviewed date:01/26/2024 12:40:02 PM Interpretation: Performing Lab: Notes/Report: Note Original Ordering Provider: CHRISTINA WALTERS PA-C (EMERY) [employer], [place] [address] [employer] - Dora Marin MD GLUCOSE, (UA) NEGATIVE NEGATIVE mg/dL BILIRUBIN, URINE NEGATIVE NEGATIVE KETONE, URINE NEGATIVE NEGATIVE mg/dL SPECIFIC GRAVITY, URINE 1.015 1.003-1.030 BLOOD, URINE SMALL NEGATIVE PH, URINE 7.0 5.0-8.0 PROTEIN, URINE 100 <= TRACE mg/dl UROBILINOGEN, URINE 0.2 0.2-1.0 E.U./dL NITRITE, URINE POSITIVE NEGATIVE LEUKOCYTE ESTERASE, URINE LARGE NEGATIVE Note Original Ordering Provider: CHRISTINA WALTERS PA-C (EMERY) [employer], a member of [address] [address] [employer] - Dora Marin MD GLYCOHEMOGLOBIN PROFILE Reviewed date:01/26/2024 12:40:02 PM Interpretation: Performing Lab: Notes/Report: GLYCATED HEMOGLOBIN A1C 6.4 <6.5 % ESTIMATED AVERAGE GLUCOSE 137 GLYCOHEMOGLOBIN PROFILE Reviewed date:05/25/2024 12:53:08 PM Interpretation: Performing Lab: Notes/Report: GLYCATED HEMOGLOBIN A1C 6.4 <6.5 % ESTIMATED AVERAGE GLUCOSE 137 COMPREHENSIVE METABOLIC PANE L Reviewed date:05/25/2024 01:05:19 PM Interpretation: Performing Lab: Notes/Report: Note Original Ordering Provider: CHRISTINA WALTERS PA-C (EMERY) [employer], [place] [address] [employer] - Dora Marin MD GLUCOSE 190 70-100 mg/dL Reference range applicable to fasting specimens only BUN 35 5-25 mg/dL CREAT 1.83 0.7-1.3 mg/dL GLOMERULAR FILTRATION RATE 37 >60 This eGFR result was calculated using the CKD-EPI 2020 Creatinine Equation SODIUM 141 135-145 mEq/L POTASSIUM 4.7 3.5-5.5 mmol/L CHLORIDE 106 96-110 mmol/L CO2 30 21-32 mmol/L ANION GAP 5 3-11 CALCIUM 10.3 8.5-10.5 mg/dL TOTAL PROTEIN 7.1 6.0-8.0 G/dL ALBUMIN 3.5 3.2-5.0 G/dL BILI,TOTAL 0.5 0.0-1.4 mg/dL SGOT 26 10-42 U/L SGPT 24 10-60 U/L ALK PHOS 69 42-121 U/L Note Original Ordering Provider: CHRISTINA WALTERS PA-C (EMERY) [employer], [place] [address] [employer] - Dora Marin MD COMPREHENSIVE METABOLIC PANE L Reviewed date:01/26/2024 02:03:42 PM Interpretation: Performing Lab: Notes/Report: Note Original Orderi ng Provider: CHRISTINA WALTERS PA-C (EMERY) GLUCOSE 116 70-100 mg/dL Reference range applicable to fasting specimens only BUN 33 5-25 mg/dL CREAT 1.64 0.7-1.3 mg/dL GLOMERULAR FILTRATION RATE 42 >60 This eGFR result was calculated using the CKD-EPI 2020 Creatinine Equation SODIUM 141 135-145 mEq/L POTASSIUM 4.9 3.5-5.5 mmol/L CHLORIDE 108 96-110 mmol/L CO2 28 21-32 mmol/L ANION GAP 5 3-11 CALCIUM 10.2 8.5-10.5 mg/dL TOTAL PROTEIN 7.2 6.0-8.0 G/dL ALBUMIN 3.7 3.2-5.0 G/dL BILI,TOTAL 0.6 0.0-1.4 mg/dL SGOT 22 10-42 U/L SGPT 25 10-60 U/L ALK PHOS 67 42-121 U/L CBC WITH AUTO DIFF Reviewed date:01/26/2024 12:39:55 PM Interpretation: Performing Lab: Notes/Report: WBC 7.2 4.8-10.8 x10-3/uL RBC 5.0 4.5-5.5 x10-6/uL HEMOGLOBIN 15.5 13.5-17.5 g/dL HEMATOCRIT 48.3 42-54 % MCV 96.2 79-98 fL MCH 30.9 27-32 pg MCHC 32.1 32-37 g/dL RDW 14.5 11-15 % PLT COUNT 149 130-400 x10-3/uL MEAN PLATELET VOLUME 11.1 7-11 fL NRBC % AUTO 0.0 <1 % NEUT % 61.4 LYMPH % 26.7 MONO % 7.0 EOS % 3.9 BASO % 0.6 IMMATURE GRANULOCYTES % 0.4 NRBC # AUTO 0.00 <0.1 x10-3/uL ABSOLUTE NEUT 4.40 1.5-7.0 x10-3/uL LYMPH # 1.91 1-5.0 x10-3/uL MONO # 0.50 0.2-1.0 x10-3/uL EOS # 0.28 0-0.5 x10-3/uL BASO # 0.04 0-0.2 x10-3/uL IMMATURE GRANULOCYTES # 0.03 0-0.03 x10-3/uL CBC WITH AUTO DIFF Reviewed date:05/25/2024 12:51:27 PM Interpretation: Performing Lab: Notes/Report: WBC 6.4 4.8-10.8 x10-3/uL RBC 4.8 4.5-5.5 x10-6/uL HEMOGLOBIN 15.3 13.5-17.5 g/dL HEMATOCRIT 47.5 42-54 % MCV 99.2 79-98 fL MCH 31.9 27-32 pg MCHC 32.2 32-37 g/dL RDW 14.5 11-15 % PLT COUNT 156 130-400 x10-3/uL MEAN PLATELET VOLUME 10.5 7-11 fL NRBC % AUTO 0.0 <1 % NEUT % 66.0 LYMPH % 23.6 MONO % 6.7 EOS % 2.6 BASO % 0.6 IMMATURE GRANULOCYTES % 0.5 NRBC # AUTO 0.00 <0.1 x10-3/uL ABSOLUTE NEUT 4.24 1.5-7.0 x10-3/uL LYMPH # 1.52 1-5.0 x10-3/uL MONO # 0.43 0.2-1.0 x10-3/uL EOS # 0.17 0-0.5 x10-3/uL BASO # 0.04 0-0.2 x10-3/uL IMMATURE GRANULOCYTES # 0.03 0-0.03 x10-3/uL LIPID PROFILE Reviewed date:01/26/2024 02:03:32 PM Interpretation: Performing Lab: Notes/Report: CHOLESTEROL 120 0-200 mg/dL TRIGLYCERIDES 190 0-150 mg/dL VITAMIN D, 25-HYDROXY Reviewed date:01/26/2024 02:07:26 PM Interpretation: Performing Lab: Notes/Report: VITAMIN D, 25-HYDROXY 58 30-80 ng/mL VITAMIN B12 Reviewed date:01/26/2024 02:07:26 PM Interpretation: Performing Lab: Notes/Report: VITAMIN B12 625 250-900 pg/mL FREE PSA PROFILE Reviewed date:01/26/2024 02:07:26 PM Interpretation: Performing Lab: Notes/Report: PROSTATIC SPECIFIC ANTIGEN 2.2 0.0-4.0 ng/mL The Siemens Advia Centaur Chemiluminescent Immunoassay is used. Results obtained with different assay methods or kits cannot be used interchangeably. Results cannot be interpreted as absolute evidence of the presence or absence of malignant disease CR Spine Lumbar W Obliq min 4v Reviewed date:03/04/2024 10:14:52 AM Interpretation: Performing Lab: Notes/Report: Original Ordering Provider: CHRISTINA MALDONADO (EMERY)[facility] VITAMIN D 25 HYDROXY Reviewed date:07/27/2024 01:28:46 PM Interpretation: Performing Lab: Notes/Report: Vit D, 25-Hydroxy 57.0 30.0-80.0 ng/mL MAGNESIUM Reviewed date:07/27/2024 01:28:46 PM Interpretation: Performing Lab: Notes/Report: Magnesium 2.1 1.9-2.6 mg/dL URINALYSIS MICROSCOPIC ONLY Reviewed date:07/27/2024 02:18:39 PM Interpretation: Performing Lab: Notes/Report: RBC, Urine 2.0 0-4 /HPF WBC, Urine 30.0 0-4 /HPF Squamous Epithelial, Urine 10 0-60 /LPF Bacteria, Urine Moderate Negative /HPF Hyaline Casts, Urine 1.0 0-3 /LPF COMPLETE BLOOD COUNT Reviewed date:07/27/2024 02:06:20 PM Interpretation: Performing Lab: Notes/Report: WBC 6.2 4.8-10.8 K/mcL RBC 4.70 4.50-5.50 M/mcL Hemoglobin 14.6 13.5-17.5 g/dL Hematocrit 46.5 42.0-54.0 % MCV 98.3 79.0-98.0 FL MCH 30.9 27.0-32.0 pcg MCHC 31.4 32.0-37.0 g/dL RDW 14.8 11.0-15.0 % Platelets 145 130-400 K/mcL MPV 10.5 7.0-11.0 FL NRBC 0.0 <1.0 % NRBC Absolute 0.00 <0.10 K/mcL RENAL FUNCTION PANEL Reviewed date:07/27/2024 02:18:39 PM Interpretation: Performing Lab: Notes/Report: Sodium 139 133-145 mmol/L Potassium 4.6 3.5-5.5 mmol/L Chloride 104 96-110 mmol/L CO2 29 21-32 mmol/L Anion Gap 6 3-11 Glucose 114 70-100 mg/dL BUN 34 5-25 mg/dL Creatinine 2.03 0.70-1.30 mg/dL eGFR 32 >=60 mL/min/1.73m2 Calculati on based on the?Chronic Kidney Disease Epidemiology Collaboration (CKD-EPI) equation refit?without adjustment for race. BUN/Creatinine Ratio 16.7 Albumin 3.4 3.2-5.0 g/dL Calcium 9.9 8.5-10.5 mg/dL Phosphorus 2.9 2.5-4.5 mg/dL PARATHYROID HORMONE INTACT Reviewed date:07/27/2024 01:28:46 PM Interpretation: Performing Lab: Notes/Report: PTH 82.1 18.5-88.0 pcg/mL PROTEIN AND CREATININE WITH RATIO, URINE Reviewed date:07/27/2024 02:18:26 PM Interpretation: Performing Lab: Notes/Report: Protein, Urine 106 Prot/Creat, Ur 1.01 <=0.20 mg/mg creat Creatinine, Urine 105.0 REASON FOR REFERRAL Reason [facility] sleep label sewer ea pt was seen in 2019 and prescribed c pap machine - machine fan broke needs new one has seizures when he does not use machine Diagnosis 1 Obstructive sleep ap narciso (G47.33) Diagnosis 2 ARGENIS on CPAP (G47.33) Referral Organization [facility] Referring Provider First Name CHRISTINA Referring Provider Last Name SELENA Referring Provider Speciality Internal edicine Referred Provider Specialty Sleep Medici ne Clinical Notes brissa willett 0 10/14/2023 01:33:52 PM > [facility] [phone], brissa willett 11/25/2023 09:49:04 AM >spoke with pt he got new machine Referral Priority Routine Reason x ray shows degenera tive changes and large osteophyte Diagnosis 1 Back pain, unspecifi ed back location, unspecified back pain laterality, unspecified chronicity (M54.9) Diagnosis 2 Bilateral low back p ain, unspecified chronicity, unspecified whether sciatica present (M54.50) Referral Organization [facility] Referring Provider First Name CHRISTINA Referring Provider Last Name SELENA Referring Provider Speciality Internal edicine Referred Provider Specialty Physical The rapist Clinical Notes brissa willett 0 03/04/2024 09:42:00 AM >faxed to RENE johnson phone # [phone] and fax # [phone] pt aware to call and gael Referral Priority Routine MEDICATIONS Medication SIG (Take, Route, Frequency, Duration) Notes Start Date End Date Status Lancets 30G - check twice a day dx e11.9 for 30 days 08/23/2024 Active Lancets 30G - one lancet in vitro twice daily DX E11.9 for 90 days 07/04/2023 Active Cyclobenzaprine HCl 5 MG 1 tablet at bed time as needed Orally Once a day for 30 days 03/09/2024 Not-Taking Simvastatin 40 mg TAKE 1 TABLET DAILY IN THE EVENING Active Finasteride 5 MG 0.5 tablet Orally twice a day for 90 days Active Nitrofurantoin Monohyd Macro 100 MG Oral for 90 Days Not-Taking OneTouch Ultra Blue - USE TO TEST BLOOD SUGAR In Vitro DX E11.9 ONCE DAILY for 0 Active predniSONE 10 MG 4 tab x 2 days 3 tab s x 2 days 2 tabs x 2 days 1 tab x 2 days Orally Once a day for 8 days 03/04/2024 Not-Taking Fish Oil 1000 MG 1 capsule Orally Onc e a day for 30 day(s) Active OneTouch Ultra - USE TO TEST DAILY fo r 90 Active Multivitamin - Orally Activ e Doxazosin Mesylate 4 mg TAKE 1 TABLET DA JACINDA Orally Once a day for 90 days Not-Taking azaTHIOprine 50 MG as directed Orally three time daily Active Gabapentin 600 mg TAKE 1 TABLET TWICE A DAY Active Calcium + D 500-1000-40 MG-UNT-MCG Orally Active OneTouch Delica Plus [id number] - DIRECTED TO TEST BLOOD GLUCOSE LEVELS ONCE A DAY for 90 Active Metoprolol Tartrate 25 mg TAKE ONE-HALF (1/2) TABLET TWICE A DAY WITH FOOD Active Warfarin Sodium 2.5 mg TAKE 1 TO 3 TABLE TS ONCE A DAY DIRECTED BY PRIMARY CARE PHYSICIAN Active Tamsulosin HCl 0.4 mg TAKE 1 CAPSULE DAILY Active IMMUNIZATIONS Vaccine Route Administration Date Status Comme nts influenza IM Intramuscular 06/10/2020 Administered Influenza, high dose seasonal IM Intramuscular 06/27/2023 Administered Moderna Covid-19 Vaccine Unknown 10/23/2020 Administere d Moderna Covid-19 Vaccine Unknown 11/20/2020 Administere d Moderna Covid-19 Vaccine Unknown 05/21/2021 Administere d Moderna Covid-19 Vaccine Unknown 12/31/2021 Administere d SOCIAL HISTORY Tobacco Use: Social History Observation Description Date Details (start date - stop date) Never Smoker NA - NA Sex Assigned At : Social History Observation Description Sex Assigned At Unknown Tobacco Use/Smoking Question Answer Notes Are you a nonsmoker Section Notes: smokes smokes , second hand sm mo smokes , second hand sm mo smokes , second hand sm mo smokes , second hand sm mo smokes , second hand sm mo smokes , second hand sm mo smokes , second hand sm mo smokes , second hand sm mo smokes , second hand sm mo smokes , second hand sm mo smokes , second hand sm mo smokes , second hand sm mo smokes , second hand sm mo smokes , second hand sm mo smokes , second hand sm mo smokes , second hand sm mo smokes , second hand sm mo smokes , second hand sm om PROBLEMS Problem Type ICD Code Onset Dates Problem Status W/U Status Risk SNOMED Code Notes Problem 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) Active confirmed Anemi a in chronic kidney disease (424784232) Problem Type 2 diabetes mellitus with diabetic chronic kidney disease (E11.22) Active confirmed Diabetic renal disease (286657553) Problem Type 2 diabetes mellitus with hyperglycemia (E11.65) Active confirmed Hyper glycemia due to type 2 diabetes mellitus (011817990600026 ) Problem Type 2 diabetes mellitus with unspecified complications (E11.8) Active confirmed Disord er due to type 2 diabetes mellitus (133039147) Problem Type 2 diabetes mellitus without complications (E11.9) Active confirmed Type I I diabetes mellitus without complication (527399816) Problem Vitamin D deficiency , unspecified (E55.9) Active confirmed 77746156 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 092724265 Problem Hyperlipidemia, unspecified (E78.5) Active confirmed Hyperlip idemia (57231793) Problem Essential (primary) hypertension (I10) Active confirmed Essential hypertension (53463638) Problem Cerebral infarction, unspecified (I63.9) Active confirmed Cerebral infarction (372877596) Problem Autoimmune hepatitis (K75.4) Active confirmed 361769234 Problem Chronic kidney disease, stage 3 (moderate) (N18.3) Active confirmed Chronic k idney disease stage 3 (disorder) (853265271) Problem residential (current) use of anticoagulants (Z79.01) Active confirmed Long-term current use of anticoagulant (631030325) Problem Benign prostatic hyperplasia without lower urinary tract symptoms (N40.0) Active confirmed Benign pros tatic hypertrophy without outflow obstruction (093994670) Problem Back pain, unspecifi ed back location, unspecified back pain laterality, unspecified chronicity (M54.9) Active confirmed 050156979 Problem Adult general medica l exam (Z00.00) Active confirmed Adult health examination (970029385) Problem Hypothyroidism, unspecified type (E03.9) Active confirmed Hypothyroidism (28864521) Problem Annual physical exam (Z00.00) Active confirmed 183149953 Problem Vitamin D deficiency (E55.9) Active confirmed Vitamin D deficiency (65258152) Problem Chronic anticoagulation (Z79.01) Active confirmed Use of anticoagulation (383242827) Problem Obesity (BMI 30-39.9 ) (E66.9) Active confirmed Obesity (652005413) Problem Type 2 diabetes mellitus without complication, unspecified whether skilled nursing insulin use (E11.9) Active confirmed 722457280 Problem Chronic kidney disease, stage 3b (N18.32) Active confirmed Chronic kidney disease stage 3B (disorder) (389053861) Problem Obstructive sleep apnea (G47.33) Active confirmed Obstructive sleep apnea (43035210) Problem Prostate cancer screening (Z12.5) Active confirmed Screening for malignant neoplasm of prostate (709725405) Problem 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, 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) Active confirmed Vitamin B>12< deficiency anaemia (10349574) Problem BMI 34.0-34.9,adult (Z68.34) Active confirmed 537923889 Problem Degenerative disc disease, lumbar (M51.36) Active confirmed Degeneration of lumbar intervertebral disc (08189760) Problem BPH loc w/o ur obs/LUTS (N40.0) Active confirmed Benign pros tatic hypertrophy without outflow obstruction (576941913) Problem Transaminitis (R74.01) Active confirmed 537814969 Problem Bilateral low back pain, unspecified chronicity, unspecified whether sciatica present (M54.50) Active confirmed 086952510 Problem Aortic valve disease (I35.9) Active confirmed Aortic valve disease (1828125) Problem Aortic valve replace d (Z95.2) Active confirmed History of hear t valve repair with prosthesis (100394965536094 ) Problem Diabetes mellitus ty pe 2 in nonobese (E11.9) Active confirmed Diabet es mellitus type 2 in nonobese (503841183) Problem ARGENIS on CPAP (G47.33) Active confirmed O bstructive sleep apnea syndrome (96981811) VITAL SIGNS Heart Rate 70 /min 08/17/2024 Oximetry 96 % 08/17/2024 Blood pressure diastolic 90 mm Hg 08/17/2024 Height 66 in 08/17/2024 Blood pressure systolic 118 mm Hg 08/17/2024 Weight 207.8 lbs 08/17/2024 BMI 33.54 kg/m2 08/17/2024 Encounters Encounter Location Date Provider Diagnosis [facility] [address] [place] [address] 07/01/2024 CHRISTINA WALTERS [facility] [address] [place] [address] 11/14/2023 CHRISTINA WALTERS Chronic anticoagulat ion Z79.01 ; Type 2 diabetes mellitus with diabetic chronic kidney disease E11.22 ; Bilateral low back pain, unspecified chronicity, unspecified whether sciatica present M54.50 ; ARGENIS on CPAP G47.33 ; Degenerative disc disease, lumbar M51.36 ; Adult general medical exam Z00.00 ; Hyperlipidemia, unspecified E78.5 ; Anemia due to vitamin B12 deficiency, unspecified B12 deficiency type D51.9 ; Vitamin D deficiency E55.9 and Aortic valve replaced Z95.2 [facility] [address] [place] [address] 02/19/2024 CHRISTINA WALTERS Type 2 diabetes phuong itus with diabetic chronic kidney disease E11.22 ; Medicare annual wellness visit, subsequent Z00.00 ; Chronic anticoagulation Z79.01 ; Bilateral low back pain, unspecified chronicity, unspecified whether sciatica present M54.50 ; ARGENIS on CPAP G47.33 ; Degenerative disc disease, lumbar M51.36 ; Hyperlipidemia, unspecified E78.5 ; Anemia due to vitamin B12 deficiency, unspecified B12 deficiency type D51.9 ; Aortic valve replaced Z95.2 ; Encounter for screening for other disorder Z13.89 ; Depression screen Z13.31 ; Obesity (BMI 30-39.9) E66.9 ; Advance care planning Z71.89 and BMI 34.0-34.9,adult Z68.34 [facility] [address] [place] [address] 03/02/2024 CHRISTINA WALTERS Type 2 diabetes phuong itus with diabetic chronic kidney disease E11.22 ; Bilateral low back pain, unspecified chronicity, unspecified whether sciatica present M54.50 ; Chronic anticoagulation Z79.01 ; ARGENIS on CPAP G47.33 ; Degenerative disc disease, lumbar M51.36 ; Hyperlipidemia, unspecified E78.5 ; Anemia due to vitamin B12 deficiency, unspecified B12 deficiency type D51.9 ; Aortic valve replaced Z95.2 ; Encounter for screening for other disorder Z13.89 ; Depression screen Z13.31 ; Obesity (BMI 30-39.9) E66.9 ; Advance care planning Z71.89 and Back pain, unspecified back location, unspecified back pain laterality, unspecified chronicity M54.9 [place] [address] [address] 03/09/2024 TALAL INFANTE Back pain, unspecifi ed back location, unspecified back pain laterality, unspecified chronicity M54.9 ; Hyperlipidemia, unspecified E78.5 ; Type 2 diabetes mellitus without complications E11.9 and Cerebral infarction, unspecified I63.9 [place] [address] 04/06/2024 TALAL INFANTE Hyperlipidemia, unspecified E78.5 ; Cerebral infarction, unspecified I63.9 ; Benign prostatic hyperplasia without lower urinary tract symptoms N40.0 ; Bilateral low back pain, unspecified chronicity, unspecified whether sciatica present M54.50 and Essential (primary) hypertension I10 [facility] [address] [place] [address] 05/31/2024 CHRISTINA WALTERS Type 2 diabetes phuong itus with diabetic chronic kidney disease E11.22 ; Chronic anticoagulation Z79.01 ; Bilateral low back pain, unspecified chronicity, unspecified whether sciatica present M54.50 ; ARGENIS on CPAP G47.33 ; Degenerative disc disease, lumbar M51.36 ; Hyperlipidemia, unspecified E78.5 ; Anemia due to vitamin B12 deficiency, unspecified B12 deficiency type D51.9 ; Aortic valve replaced Z95.2 ; Encounter for screening for other disorder Z13.89 ; Depression F32.A ; Obesity (BMI 30-39.9) E66.9 and BMI 34.0-34.9,adult Z68.34 [facility] [address] [place] [address] 08/17/2024 CHRISTINA WALTERS Type 2 diabetes phuong itus with diabetic chronic kidney disease E11.22 ; Chronic anticoagulation Z79.01 ; Bilateral low back pain, unspecified chronicity, unspecified whether sciatica present M54.50 ; ARGENIS on CPAP G47.33 ; Hyperlipidemia, unspecified E78.5 ; Anemia due to vitamin B12 deficiency, unspecified B12 deficiency type D51.9 ; Aortic valve replaced Z95.2 ; Encounter for screening for other disorder Z13.89 ; Depression F32.A ; Obesity (BMI 30-39.9) E66.9 and BMI 34.0-34.9,adult Z68.34 [address] [place] [address] 10/14/2023 JUMANA INFANTE [address] [place] [address] 10/14/2023 CHRISTINA MICHAELA [address] [place] [address] 11/07/2023 CHRISTINA MICHAELA [address] [place] [address] 01/26/2024 CHRISTINA SELENA [address] [place] [address] 02/04/[address] [facility] [address] [place] [address] 03/01/[address] [place] [address] 03/03/2024 CHRISTINA MICHAELA [address] [place] [address] 03/04/[address] [address] [place] [address] 03/04/[address] [facility] [address] [place] [address] 03/04/[address] [place] [address] 03/05/[address] [place] [address] 03/09/[address] [place] [address] 04/16/[address] [facility] [address] [place] [address] 04/28/[address] [facility] [address] [place] [address] 05/31/[address] [facility] [address] [place] [address] 06/03/[address] [facility] [address] [place] [address] 06/21/[address] [place] [address] 06/28/[address] [facility] [address] [place] [address] 07/28/2024 CHRISTINA SELENA [address] [place] [address] 07/29/2024 CHRISTINA SELENA [address] [place] [address] 08/12/[address] [place] [address] 08/16/[address] [facility] [address] [place] [address] 08/16/[address] [facility] [address] [place] [address] 08/23/[address] [place] [address] 08/24/[address] [place] [address] 08/27/2024 JUMANA INFANTE ASSESSMENTS Encounter Date Diagnosis Assessment Notes Treatment Notes Treatment Clinical Notes Section Notes 11/14/2023 Type 2 diabetes mellitus with diabetic chronic kidney disease (ICD-10 - E11.22) # Bilateral low back pain: Chronic problem, but overall stable # ARGENIS on CPAP: Recently obtained new CPAP # Chronic AC due to AVR- INR managed by outpt clinic per pt # T2DM. A1C at next visit. Pt intermittenly checks POC are reports fine . has not seen podiatry in quiet some time. Does have some neuropathy # Hyperlipidemia: Continue statin Case discussed with collaborating physician Doyle Infante who reviewed the assessment and plan. Chart, medications, labs, vital signs reviewed. Dictation was accomplished with the use of Dragon voice recognition software, prone to medical misidentifications and grammatical errors. This is unintentional and the practitioner does try to identify and correct these, but some could still be present. Please do not hesitate to contact practitioner for clarification. All questions answered to patients satisfaction. Patient verbalized understanding of diagnosis and treatments explained. To call sooner prior to next visit it any questions/concerns arise. 11/14/2023 Chronic anticoagulation (ICD-10 - Z79.01) # Bilateral low back pain: Chronic problem, but overall stable # ARGENIS on CPAP: Recently obtained new CPAP # Chronic AC due to AVR- INR managed by outpt clinic per pt # T2DM. A1C at next visit. Pt intermittenly checks POC are reports fine . has not seen podiatry in quiet some time. Does have some neuropathy # Hyperlipidemia: Continue statin Case discussed with collaborating physician Doyle Infante who reviewed the assessment and plan. Chart, medications, labs, vital signs reviewed. Dictation was accomplished with the use of Loud3r voice recognition software, prone to medical misidentifications and grammatical errors. This is unintentional and the practitioner does try to identify and correct these, but some could still be present. Please do not hesitate to contact practitioner for clarification. All questions answered to patients satisfaction. Patient verbalized understanding of diagnosis and treatments explained. To call sooner prior to next visit it any questions/concerns arise. 02/19/2024 Type 2 diabetes mellitus with diabetic chronic kidney disease (ICD-10 - E11.22) # Bilateral low back pain: Chronic problem, but overall stable # ARGENIS on CPAP: Recently obtained new CPAP, esteban shows sleeping average 7.5 hours with < 0.2% episodes of apnea # Chronic AC due to AVR- INR managed by outpt clinic per pt # T2DM. A1C at next visit. Pt intermittenly checks POC are reports fine . has not seen podiatry in quiet some time. Does have some neuropathy # Hyperlipidemia: Continue statin # CKD III. Baseline creaitnine 1.65. Followed by Dr. Guaman # Screenings: UTD Physical Men Patient seen and examined. Comprehensive discussion was done on the following. 1. Nutrition: It is important to follow a healthy diet based on lots of vegetables and legumes and good fat. Avoid processed food and processed carbohydrates. Learn to prepare your own meals. Learn to read labels and avoid high fructose corn syrup, processed chemicals added to increase shelf life and preprepared meals. Avoid fast foods. Learn to eat slowly and plan meals for a week. Try to count calories and be mindful off daily calorie intake. Get into the habit of keeping an eye on your weight by using an appropriate scale. Learn to log exercise and discussed fitness Apps like Tutamee which can help keep log off calories taken versus calories burned. Local food should be preferred. Discussed Dirty Dozen Versus Clean Fifteen. Discussed healthy supplements like fish oil, Tumeric, Curcumin, Melatonin, Resveratrol, Probiotics, Vitamin-D, Alpha-Lipoic acid, Vitamin-D and coconut oil. 2. It is important to exercise regularly. Is a good habit to walk at least 30-45 minutes a day. Gentle weightlifting with standard precautions to protect the back. Finding activity like cycling or hiking and get into the habit of engaging in it. Stretching before and after the exercises important. It is also important to contact me if there are any problems like shortness of breath, chest pain, back pain and joint or muscle pain associated with the exercise. 3. Discussed age appropriate screening guidelines. Colonoscopy needs to start at age 50 with stool for occult blood as appropriate. There is a new test that can test for genetic abnormalities in the stool sample. This would not replace a colonoscopy but could be used as a screening tool for patients who do not want a colonoscopy. We discussed the importance of early detection of colon cancer. 4. Discussed current PSA screening. PSA screening can be done in most patients between age 50 and 65. However early detection of prostate cancer needs to carefully be balanced with complications with treatment. These include incontinence, impotence etc. Each patient should decide if they would like to have this test. 5. Discussed safe driving and no use of smart phone while driving 6. Age-appropriate immunizations were discussed. A tetanus booster is needed every 10 years. Flu vaccine is recommended every year just before the start of the flu season. Shingles vaccine is recommended after age 50 but not all insurances cover it. Pneumonia vaccine is given after age 65 unless there are certain comorbidities for which it is started earlier. 7. Diagnostic labs were discussed. These could include CBC CMP and lipids with fasting blood glucose and insulin levels. Vitamin D and hemoglobin A1c testing might be appropriate. Case discussed with collaborating physician Doyle Infante who reviewed the assessment and plan. Chart, medications, labs, vital signs reviewed. Dictation was accomplished with the use of L[employer] voice recognition software, prone to medical misidentifications and grammatical errors. This is unintentional and the practitioner does try to identify and correct these, but some could still be present. Please do not hesitate to contact practitioner for clarification. All questions answered to patients satisfaction. Patient verbalized understanding of diagnosis and treatments explained. To call sooner prior to next visit it any questions/concerns arise. 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 A1C at next visit. Pt intermittenly checks POC are reports fine . has not seen podiatry in quiet some time. Does have some neuropathy # Hyperlipidemia: Continue statin # CKD III. Baseline creaitnine 1.65. Followed by Dr. Guaman # Screenings: UTD Physical Men Patient seen and examined. Comprehensive discussion was done on the following. 1. Nutrition: It is important to follow a healthy diet based on lots of vegetables and legumes and good fat. Avoid processed food and processed carbohydrates. Learn to prepare your own meals. Learn to read labels and avoid high fructose corn syrup, processed chemicals added to increase shelf life and preprepared meals. Avoid fast foods. Learn to eat slowly and plan meals for a week. Try to count calories and be mindful off daily calorie intake. Get into the habit of keeping an eye on your weight by using an appropriate scale. Learn to log exercise and discussed fitness Apps like Tutamee which can help keep log off calories taken versus calories burned. Local food should be preferred. Discussed Dirty Dozen Versus Clean Fifteen. Discussed healthy supplements like fish oil, Tumeric, Curcumin, Melatonin, Resveratrol, Probiotics, Vitamin-D, Alpha-Lipoic acid, Vitamin-D and coconut oil. 2. It is important to exercise regularly. Is a good habit to walk at least 30-45 minutes a day. Gentle weightlifting with standard precautions to protect the back. Finding activity like cycling or hiking and get into the habit of engaging in it. Stretching before and after the exercises important. It is also important to contact me if there are any problems like shortness of breath, chest pain, back pain and joint or muscle pain associated with the exercise. 3. Discussed age appropriate screening guidelines. Colonoscopy needs to start at age 50 with stool for occult blood as appropriate. There is a new test that can test for genetic abnormalities in the stool sample. This would not replace a colonoscopy but could be used as a screening tool for patients who do not want a colonoscopy. We discussed the importance of early detection of colon cancer. 4. Discussed current PSA screening. PSA screening can be done in most patients between age 50 and 65. However early detection of prostate cancer needs to carefully be balanced with complications with treatment. These include incontinence, impotence etc. Each patient should decide if they would like to have this test. 5. Discussed safe driving and no use of smart phone while driving 6. Age-appropriate immunizations were discussed. A tetanus booster is needed every 10 years. Flu vaccine is recommended every year just before the start of the flu season. Shingles vaccine is recommended after age 50 but not all insurances cover it. Pneumonia vaccine is given after age 65 unless there are certain comorbidities for which it is started earlier. 7. Diagnostic labs were discussed. These could include CBC CMP and lipids with fasting blood glucose and insulin levels. Vitamin D and hemoglobin A1c testing might be appropriate. Case discussed with collaborating physician Doyle Infante who reviewed the assessment and plan. Chart, medications, labs, vital signs reviewed. Dictation was accomplished with the use of L[employer]3r voice recognition software, prone to medical misidentifications and grammatical errors. This is unintentional and the practitioner does try to identify and correct these, but some could still be present. Please do not hesitate to contact practitioner for clarification. All questions answered to patients satisfaction. Patient verbalized understanding of diagnosis and treatments explained. To call sooner prior to next visit it any questions/concerns arise. 03/02/2024 Type 2 diabetes mellitus with diabetic chronic kidney disease (ICD-10 - E11.22) # Bilateral low back pain: Chronic problem, but acute exacerbation. 03/01 pain. Will obtain lumbar x-rays to see etiology. Suspect DDD. Consider PT or pain management for intravertebral steroid injections. 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 A1C at next visit. Pt intermittenly checks POC are reports fine . has not seen podiatry in quiet some time. Does have some neuropathy # Hyperlipidemia: Continue statin # CKD III. Baseline creaitnine 1.65. Followed by Dr. Guaman # Screenings: UTD #Degenerative disc disease: Xray ordered. May consider referring to PT or a pain clinical after imaging is reviewed. Physical Men Patient seen and examined. Comprehensive discussion was done on the following. 1. Nutrition: It is important to follow a healthy diet based on lots of vegetables and legumes and good fat. Avoid processed food and processed carbohydrates. Learn to prepare your own meals. Learn to read labels and avoid high fructose corn syrup, processed chemicals added to increase shelf life and preprepared meals. Avoid fast foods. Learn to eat slowly and plan meals for a week. Try to count calories and be mindful off daily calorie intake. Get into the habit of keeping an eye on your weight by using an appropriate scale. Learn to log exercise and discussed fitness Apps like Tutamee which can help keep log off calories taken versus calories burned. Local food should be preferred. Discussed Dirty Dozen Versus Clean Fifteen. Discussed healthy supplements like fish oil, Tumeric, Curcumin, Melatonin, Resveratrol, Probiotics, Vitamin-D, Alpha-Lipoic acid, Vitamin-D and coconut oil. 2. It is important to exercise regularly. Is a good habit to walk at least 30-45 minutes a day. Gentle weightlifting with standard precautions to protect the back. Finding activity like cycling or hiking and get into the habit of engaging in it. Stretching before and after the exercises important. It is also important to contact me if there are any problems like shortness of breath, chest pain, back pain and joint or muscle pain associated with the exercise. 3. Discussed age appropriate screening guidelines. Colonoscopy needs to start at age 50 with stool for occult blood as appropriate. There is a new test that can test for genetic abnormalities in the stool sample. This would not replace a colonoscopy but could be used as a screening tool for patients who do not want a colonoscopy. We discussed the importance of early detection of colon cancer. 4. Discussed current PSA screening. PSA screening can be done in most patients between age 50 and 65. However early detection of prostate cancer needs to carefully be balanced with complications with treatment. These include incontinence, impotence etc. Each patient should decide if they would like to have this test. 5. Discussed safe driving and no use of smart phone while driving 6. Age-appropriate immunizations were discussed. A tetanus booster is needed every 10 years. Flu vaccine is recommended every year just before the start of the flu season. Shingles vaccine is recommended after age 50 but not all insurances cover it. Pneumonia vaccine is given after age 65 unless there are certain comorbidities for which it is started earlier. 7. Diagnostic labs were discussed. These could include CBC CMP and lipids with fasting blood glucose and insulin levels. Vitamin D and hemoglobin A1c testing might be appropriate. Case discussed with collaborating physician Doyle Infante who reviewed the assessment and plan. Chart, medications, labs, vital signs reviewed. Dictation was accomplished with the use of Loud3r voice recognition software, prone to medical misidentifications and grammatical errors. This is unintentional and the practitioner does try to identify and correct these, but some could still be present. Please do not hesitate to contact practitioner for clarification. All questions answered to patients satisfaction. Patient verbalized understanding of diagnosis and treatments explained. To call sooner prior to next visit it any questions/concerns arise. 03/02/2024 Bilateral low back pain, unspecified chronicity, unspecified whether sciatica present (ICD-10 - M54.50) # Bilateral low back pain: Chronic problem, but acute exacerbation. 03/01 pain. Will obtain lumbar x-rays to see etiology. Suspect DDD. Consider PT or pain management for intravertebral steroid injections. 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 A1C at next visit. Pt intermittenly checks POC are reports fine . has not seen podiatry in quiet some time. Does have some neuropathy # Hyperlipidemia: Continue statin # CKD III. Baseline creaitnine 1.65. Followed by Dr. Guaman # Screenings: UTD #Degenerative disc disease: Xray ordered. May consider referring to PT or a pain clinical after imaging is reviewed. Physical Men Patient seen and examined. Comprehensive discussion was done on the following. 1. Nutrition: It is important to follow a healthy diet based on lots of vegetables and legumes and good fat. Avoid processed food and processed carbohydrates. Learn to prepare your own meals. Learn to read labels and avoid high fructose corn syrup, processed chemicals added to increase shelf life and preprepared meals. Avoid fast foods. Learn to eat slowly and plan meals for a week. Try to count calories and be mindful off daily calorie intake. Get into the habit of keeping an eye on your weight by using an appropriate scale. Learn to log exercise and discussed fitness Apps like Tutamee which can help keep log off calories taken versus calories burned. Local food should be preferred. Discussed Dirty Dozen Versus Clean Fifteen. Discussed healthy supplements like fish oil, Tumeric, Curcumin, Melatonin, Resveratrol, Probiotics, Vitamin-D, Alpha-Lipoic acid, Vitamin-D and coconut oil. 2. It is important to exercise regularly. Is a good habit to walk at least 30-45 minutes a day. Gentle weightlifting with standard precautions to protect the back. Finding activity like cycling or hiking and get into the habit of engaging in it. Stretching before and after the exercises important. It is also important to contact me if there are any problems like shortness of breath, chest pain, back pain and joint or muscle pain associated with the exercise. 3. Discussed age appropriate screening guidelines. Colonoscopy needs to start at age 50 with stool for occult blood as appropriate. There is a new test that can test for genetic abnormalities in the stool sample. This would not replace a colonoscopy but could be used as a screening tool for patients who do not want a colonoscopy. We discussed the importance of early detection of colon cancer. 4. Discussed current PSA screening. PSA screening can be done in most patients between age 50 and 65. However early detection of prostate cancer needs to carefully be balanced with complications with treatment. These include incontinence, impotence etc. Each patient should decide if they would like to have this test. 5. Discussed safe driving and no use of smart phone while driving 6. Age-appropriate immunizations were discussed. A tetanus booster is needed every 10 years. Flu vaccine is recommended every year just before the start of the flu season. Shingles vaccine is recommended after age 50 but not all insurances cover it. Pneumonia vaccine is given after age 65 unless there are certain comorbidities for which it is started earlier. 7. Diagnostic labs were discussed. These could include CBC CMP and lipids with fasting blood glucose and insulin levels. Vitamin D and hemoglobin A1c testing might be appropriate. Case discussed with collaborating physician Doyle Infante who reviewed the assessment and plan. Chart, medications, labs, vital signs reviewed. Dictation was accomplished with the use of Loud3r voice recognition software, prone to medical misidentifications and grammatical errors. This is unintentional and the practitioner does try to identify and correct these, but some could still be present. Please do not hesitate to contact practitioner for clarification. All questions answered to patients satisfaction. Patient verbalized understanding of diagnosis and treatments explained. To call sooner prior to next visit it any questions/concerns arise. 03/09/2024 Hyperlipidemia, unspecified (ICD-10 - E78.5) Patient has presented with lower back pain. This has been going on but has been worsening recently. Patient describes moderate to severe pain. Discussed radiation into the legs numbness tingling or loss of function. Discussed symptoms of cauda equina including urinary and stool incontinence as well as loss of tone and foot drop. We also had a discussion on standard of care for management of back pain including strengthening of the core in the long run, use of anti-inflammatory medicines which can actually affect kidney function and cause peptic ulcer disease but can help with inflammation and pain temporarily use of steroids, which can have similar effects as nonsteroidal anti-inflammatory drugs but can also affect bone health, cause fluid retention impact immunity and many long-term impacts, discussed role of physical therapy chiropractor or acupuncture and stretching. Discussed that mostly imaging is not needed and CAT scan and MRIs can be avoided till using treatment protocols as above. In some cases MRIs and CAT scan are needed to identify disc disease like disc herniation cord compression and spinal stenosis. Also discussed the role of referral to pain management steroid injections, in the spine when appropriate. Shared decision making done. We will do nonsteroidal Celebrex adjust dose of Coumadin have a quick follow-up after 25 March continue with physical therapy muscle relaxer Flexeril at night will follow-up 03/09/2024 Back pain, unspecified back location, unspecified back pain laterality, unspecified chronicity (ICD-10 - M54.9) Patient has presented with lower back pain. This has been going on but has been worsening recently. Patient describes moderate to severe pain. Discussed radiation into the legs numbness tingling or loss of function. Discussed symptoms of cauda equina including urinary and stool incontinence as well as loss of tone and foot drop. We also had a discussion on standard of care for management of back pain including strengthening of the core in the long run, use of anti-inflammatory medicines which can actually affect kidney function and cause peptic ulcer disease but can help with inflammation and pain temporarily use of steroids, which can have similar effects as nonsteroidal anti-inflammatory drugs but can also affect bone health, cause fluid retention impact immunity and many long-term impacts, discussed role of physical therapy chiropractor or acupuncture and stretching. Discussed that mostly imaging is not needed and CAT scan and MRIs can be avoided till using treatment protocols as above. In some cases MRIs and CAT scan are needed to identify disc disease like disc herniation cord compression and spinal stenosis. Also discussed the role of referral to pain management steroid injections, in the spine when appropriate. Shared decision making done. We will do nonsteroidal Celebrex adjust dose of Coumadin have a quick follow-up after 25 March continue with physical therapy muscle relaxer Flexeril at night will follow-up 04/06/2024 Hyperlipidemia, unspecified (ICD-10 - E78.5) Patient has presented with lower back pain. This has been going on but has been worsening recently. Patient describes moderate to severe pain. Discussed radiation into the legs numbness tingling or loss of function. Discussed symptoms of cauda equina including urinary and stool incontinence as well as loss of tone and foot drop. We also had a discussion on standard of care for management of back pain including strengthening of the core in the long run, use of anti-inflammatory medicines which can actually affect kidney function and cause peptic ulcer disease but can help with inflammation and pain temporarily use of steroids, which can have similar effects as nonsteroidal anti-inflammatory drugs but can also affect bone health, cause fluid retention impact immunity and many long-term impacts, discussed role of physical therapy chiropractor or acupuncture and stretching. Discussed that mostly imaging is not needed and CAT scan and MRIs can be avoided till using treatment protocols as above. In some cases MRIs and CAT scan are needed to identify disc disease like disc herniation cord compression and spinal stenosis. Also discussed the role of referral to pain management steroid injections, in the spine when appropriate. Shared decision making done. His back pain is now much better and he will follow-up with Christina as scheduled and continue other medications follow-up with Coumadin clinic for INR adjustment 04/06/2024 Cerebral infarction, unspecified (ICD-10 - I63.9) Patient has presented with lower back pain. This has been going on but has been worsening recently. Patient describes moderate to severe pain. Discussed radiation into the legs numbness tingling or loss of function. Discussed symptoms of cauda equina including urinary and stool incontinence as well as loss of tone and foot drop. We also had a discussion on standard of care for management of back pain including strengthening of the core in the long run, use of anti-inflammatory medicines which can actually affect kidney function and cause peptic ulcer disease but can help with inflammation and pain temporarily use of steroids, which can have similar effects as nonsteroidal anti-inflammatory drugs but can also affect bone health, cause fluid retention impact immunity and many long-term impacts, discussed role of physical therapy chiropractor or acupuncture and stretching. Discussed that mostly imaging is not needed and CAT scan and MRIs can be avoided till using treatment protocols as above. In some cases MRIs and CAT scan are needed to identify disc disease like disc herniation cord compression and spinal stenosis. Also discussed the role of referral to pain management steroid injections, in the spine when appropriate. Shared decision making done. His back pain is now much better and he will follow-up with Christina as scheduled and continue other medications follow-up with Coumadin clinic for INR adjustment 05/31/2024 Type 2 diabetes mellitus with diabetic chronic kidney disease (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 Pt PHQ9 10. Discussed SSRI therapy, pt reluctant due to being on too many meds . Will start with therapist. 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 A1C at next visit. Pt intermittenly checks POC are reports fine . has not seen podiatry in quiet some time. Does have some neuropathy # Hyperlipidemia: Continue statin # CKD III. Baseline creaitnine 1.65. Followed by Dr. Guaman Case discussed with collaborating physician Doyle Infante who reviewed the assessment and plan. Chart, medications, labs, vital signs reviewed. Dictation was accomplished with the use of Dragon voice recognition software, prone to medical misidentifications and grammatical errors. This is unintentional and the practitioner does try to identify and correct these, but some could still be present. Please do not hesitate to contact practitioner for clarification. All questions answered to patients satisfaction. Patient verbalized understanding of diagnosis and treatments explained. To call sooner prior to next visit it any questions/concerns arise. 05/31/2024 Chronic anticoagulation (ICD-10 - Z79.01) # Depression. Pt PHQ9 10. Discussed SSRI therapy, pt reluctant due to being on too many meds . Will start with therapist. 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 A1C at next visit. Pt intermittenly checks POC are reports fine . has not seen podiatry in quiet some time. Does have some neuropathy # Hyperlipidemia: Continue statin # CKD III. Baseline creaitnine 1.65. Followed by Dr. Deniz Kaba discussed with collaborating physician Doyle Infante who reviewed the assessment and plan. Chart, medications, labs, vital signs reviewed. Dictation was accomplished with the use of Loud3r voice recognition software, prone to medical misidentifications and grammatical errors. This is unintentional and the practitioner does try to identify and correct these, but some could still be present. Please do not hesitate to contact practitioner for clarification. All questions answered to patients satisfaction. Patient verbalized understanding of diagnosis and treatments explained. To call sooner prior to next visit it any questions/concerns arise. 08/17/2024 Type 2 diabetes mellitus with diabetic chronic kidney disease (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 Pt PHQ9 8. Discussed SSRI therapy, pt reluctant due to being on too many meds . 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 A1C at next visit. Pt intermittenly checks POC are reports fine . has not seen podiatry in quiet some time. Does have some neuropathy # Hyperlipidemia: Continue statin # CKD III. Baseline creaitnine 1.65. Followed by Dr. Deniz Kaba discussed with collaborating physician Doyle Infante who reviewed the assessment and plan. Chart, medications, labs, vital signs reviewed. Dictation was accomplished with the use of Dragon voice recognition software, prone to medical misidentifications and grammatical errors. This is unintentional and the practitioner does try to identify and correct these, but some could still be present. Please do not hesitate to contact practitioner for clarification. All questions answered to patients satisfaction. Patient verbalized understanding of diagnosis and treatments explained. To call sooner prior to next visit it any questions/concerns arise. 08/17/2024 Chronic anticoagulation (ICD-10 - Z79.01) # Depression. Pt PHQ9 8. Discussed SSRI therapy, pt reluctant due to being on too many meds . 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 A1C at next visit. Pt intermittenly checks POC are reports fine . has not seen podiatry in quiet some time. Does have some neuropathy # Hyperlipidemia: Continue statin # CKD III. Baseline creaitnine 1.65. Followed by Dr. Deniz Kaab discussed with collaborating physician Doyle Infante who reviewed the assessment and plan. Chart, medications, labs, vital signs reviewed. Dictation was accomplished with the use of Loud3r voice recognition software, prone to medical misidentifications and grammatical errors. This is unintentional and the practitioner does try to identify and correct these, but some could still be present. Please do not hesitate to contact practitioner for clarification. All questions answered to patients satisfaction. Patient verbalized understanding of diagnosis and treatments explained. To call sooner prior to next visit it any questions/concerns arise. 08/17/2024 Bilateral low back pain, unspecified chronicity, unspecified whether sciatica present (ICD-10 - M54.50) # Depression. Pt PHQ9 8. Discussed SSRI therapy, pt reluctant due to being on too many meds . 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 A1C at next visit. Pt intermittenly checks POC are reports fine . has not seen podiatry in quiet some time. Does have some neuropathy # Hyperlipidemia: Continue statin # CKD III. Baseline creaitnine 1.65. Followed by Dr. Guaman Case discussed with collaborating physician Doyle Infante who reviewed the assessment and plan. Chart, medications, labs, vital signs reviewed. Dictation was accomplished with the use of Loud[employer]r voice recognition software, prone to medical misidentifications and grammatical errors. This is unintentional and the practitioner does try to identify and correct these, but some could still be present. Please do not hesitate to contact practitioner for clarification. All questions answered to patients satisfaction. Patient verbalized understanding of diagnosis and treatments explained. To call sooner prior to next visit it any questions/concerns arise. 03/09/2024 Type 2 diabetes mellitus without complications (ICD-10 - E11.9) Patient has presented with lower back pain. This has been going on but has been worsening recently. Patient describes moderate to severe pain. Discussed radiation into the legs numbness tingling or loss of function. Discussed symptoms of cauda equina including urinary and stool incontinence as well as loss of tone and foot drop. We also had a discussion on standard of care for management of back pain including strengthening of the core in the long run, use of anti-inflammatory medicines which can actually affect kidney function and cause peptic ulcer disease but can help with inflammation and pain temporarily use of steroids, which can have similar effects as nonsteroidal anti-inflammatory drugs but can also affect bone health, cause fluid retention impact immunity and many long-term impacts, discussed role of physical therapy chiropractor or acupuncture and stretching. Discussed that mostly imaging is not needed and CAT scan and MRIs can be avoided till using treatment protocols as above. In some cases MRIs and CAT scan are needed to identify disc disease like disc herniation cord compression and spinal stenosis. Also discussed the role of referral to pain management steroid injections, in the spine when appropriate. Shared decision making done. We will do nonsteroidal Celebrex adjust dose of Coumadin have a quick follow-up after 25 March continue with physical therapy muscle relaxer Flexeril at night will follow-up 05/31/2024 Bilateral low back pain, unspecified chronicity, unspecified whether sciatica present (ICD-10 - M54.50) # Depression. Pt PHQ9 10. Discussed SSRI therapy, pt reluctant due to being on too many meds . Will start with therapist. 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 A1C at next visit. Pt intermittenly checks POC are reports fine . has not seen podiatry in quiet some time. Does have some neuropathy # Hyperlipidemia: Continue statin # CKD III. Baseline creaitnine 1.65. Followed by Dr. Guaman Case discussed with collaborating physician Doyle Infante who reviewed the assessment and plan. Chart, medications, labs, vital signs reviewed. Dictation was accomplished with the use of Loud3r voice recognition software, prone to medical misidentifications and grammatical errors. This is unintentional and the practitioner does try to identify and correct these, but some could still be present. Please do not hesitate to contact practitioner for clarification. All questions answered to patients satisfaction. Patient verbalized understanding of diagnosis and treatments explained. To call sooner prior to next visit it any questions/concerns arise. 04/06/2024 Benign prostatic hyperplasia without lower urinary tract symptoms (ICD-10 - N40.0) Patient has presented with lower back pain. This has been going on but has been worsening recently. Patient describes moderate to severe pain. Discussed radiation into the legs numbness tingling or loss of function. Discussed symptoms of cauda equina including urinary and stool incontinence as well as loss of tone and foot drop. We also had a discussion on standard of care for management of back pain including strengthening of the core in the long run, use of anti-inflammatory medicines which can actually affect kidney function and cause peptic ulcer disease but can help with inflammation and pain temporarily use of steroids, which can have similar effects as nonsteroidal anti-inflammatory drugs but can also affect bone health, cause fluid retention impact immunity and many long-term impacts, discussed role of physical therapy chiropractor or acupuncture and stretching. Discussed that mostly imaging is not needed and CAT scan and MRIs can be avoided till using treatment protocols as above. In some cases MRIs and CAT scan are needed to identify disc disease like disc herniation cord compression and spinal stenosis. Also discussed the role of referral to pain management steroid injections, in the spine when appropriate. Shared decision making done. His back pain is now much better and he will follow-up with Christina as scheduled and continue other medications follow-up with Coumadin clinic for INR adjustment 03/02/2024 Chronic anticoagulation (ICD-10 - Z79.01) # Bilateral low back pain: Chronic problem, but acute exacerbation. 03/01 pain. Will obtain lumbar x-rays to see etiology. Suspect DDD. Consider PT or pain management for intravertebral steroid injections. 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 A1C at next visit. Pt intermittenly checks POC are reports fine . has not seen podiatry in quiet some time. Does have some neuropathy # Hyperlipidemia: Continue statin # CKD III. Baseline creaitnine 1.65. Followed by Dr. Guaman # Screenings: UTD #Degenerative disc disease: Xray ordered. May consider referring to PT or a pain clinical after imaging is reviewed. Physical Men Patient seen and examined. Comprehensive discussion was done on the following. 1. Nutrition: It is important to follow a healthy diet based on lots of vegetables and legumes and good fat. Avoid processed food and processed carbohydrates. Learn to prepare your own meals. Learn to read labels and avoid high fructose corn syrup, processed chemicals added to increase shelf life and preprepared meals. Avoid fast foods. Learn to eat slowly and plan meals for a week. Try to count calories and be mindful off daily calorie intake. Get into the habit of keeping an eye on your weight by using an appropriate scale. Learn to log exercise and discussed fitness Apps like Tutamee which can help keep log off calories taken versus calories burned. Local food should be preferred. Discussed Dirty Dozen Versus Clean Fifteen. Discussed healthy supplements like fish oil, Tumeric, Curcumin, Melatonin, Resveratrol, Probiotics, Vitamin-D, Alpha-Lipoic acid, Vitamin-D and coconut oil. 2. It is important to exercise regularly. Is a good habit to walk at least 30-45 minutes a day. Gentle weightlifting with standard precautions to protect the back. Finding activity like cycling or hiking and get into the habit of engaging in it. Stretching before and after the exercises important. It is also important to contact me if there are any problems like shortness of breath, chest pain, back pain and joint or muscle pain associated with the exercise. 3. Discussed age appropriate screening guidelines. Colonoscopy needs to start at age 50 with stool for occult blood as appropriate. There is a new test that can test for genetic abnormalities in the stool sample. This would not replace a colonoscopy but could be used as a screening tool for patients who do not want a colonoscopy. We discussed the importance of early detection of colon cancer. 4. Discussed current PSA screening. PSA screening can be done in most patients between age 50 and 65. However early detection of prostate cancer needs to carefully be balanced with complications with treatment. These include incontinence, impotence etc. Each patient should decide if they would like to have this test. 5. Discussed safe driving and no use of smart phone while driving 6. Age-appropriate immunizations were discussed. A tetanus booster is needed every 10 years. Flu vaccine is recommended every year just before the start of the flu season. Shingles vaccine is recommended after age 50 but not all insurances cover it. Pneumonia vaccine is given after age 65 unless there are certain comorbidities for which it is started earlier. 7. Diagnostic labs were discussed. These could include CBC CMP and lipids with fasting blood glucose and insulin levels. Vitamin D and hemoglobin A1c testing might be appropriate. Case discussed with collaborating physician Doyle Infante who reviewed the assessment and plan. Chart, medications, labs, vital signs reviewed. Dictation was accomplished with the use of L[employer]r voice recognition software, prone to medical misidentifications and grammatical errors. This is unintentional and the practitioner does try to identify and correct these, but some could still be present. Please do not hesitate to contact practitioner for clarification. All questions answered to patients satisfaction. Patient verbalized understanding of diagnosis and treatments explained. To call sooner prior to next visit it any questions/concerns arise. 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 A1C at next visit. Pt intermittenly checks POC are reports fine . has not seen podiatry in quiet some time. Does have some neuropathy # Hyperlipidemia: Continue statin # CKD III. Baseline creaitnine 1.65. Followed by Dr. Guaman # Screenings: UTD Physical Men Patient seen and examined. Comprehensive discussion was done on the following. 1. Nutrition: It is important to follow a healthy diet based on lots of vegetables and legumes and good fat. Avoid processed food and processed carbohydrates. Learn to prepare your own meals. Learn to read labels and avoid high fructose corn syrup, processed chemicals added to increase shelf life and preprepared meals. Avoid fast foods. Learn to eat slowly and plan meals for a week. Try to count calories and be mindful off daily calorie intake. Get into the habit of keeping an eye on your weight by using an appropriate scale. Learn to log exercise and discussed fitness Apps like Tutamee which can help keep log off calories taken versus calories burned. Local food should be preferred. Discussed Dirty Dozen Versus Clean Fifteen. Discussed healthy supplements like fish oil, Tumeric, Curcumin, Melatonin, Resveratrol, Probiotics, Vitamin-D, Alpha-Lipoic acid, Vitamin-D and coconut oil. 2. It is important to exercise regularly. Is a good habit to walk at least 30-45 minutes a day. Gentle weightlifting with standard precautions to protect the back. Finding activity like cycling or hiking and get into the habit of engaging in it. Stretching before and after the exercises important. It is also important to contact me if there are any problems like shortness of breath, chest pain, back pain and joint or muscle pain associated with the exercise. 3. Discussed age appropriate screening guidelines. Colonoscopy needs to start at age 50 with stool for occult blood as appropriate. There is a new test that can test for genetic abnormalities in the stool sample. This would not replace a colonoscopy but could be used as a screening tool for patients who do not want a colonoscopy. We discussed the importance of early detection of colon cancer. 4. Discussed current PSA screening. PSA screening can be done in most patients between age 50 and 65. However early detection of prostate cancer needs to carefully be balanced with complications with treatment. These include incontinence, impotence etc. Each patient should decide if they would like to have this test. 5. Discussed safe driving and no use of smart phone while driving 6. Age-appropriate immunizations were discussed. A tetanus booster is needed every 10 years. Flu vaccine is recommended every year just before the start of the flu season. Shingles vaccine is recommended after age 50 but not all insurances cover it. Pneumonia vaccine is given after age 65 unless there are certain comorbidities for which it is started earlier. 7. Diagnostic labs were discussed. These could include CBC CMP and lipids with fasting blood glucose and insulin levels. Vitamin D and hemoglobin A1c testing might be appropriate. Case discussed with collaborating physician Doyle Infante who reviewed the assessment and plan. Chart, medications, labs, vital signs reviewed. Dictation was accomplished with the use of Loud[employer]r voice recognition software, prone to medical misidentifications and grammatical errors. This is unintentional and the practitioner does try to identify and correct these, but some could still be present. Please do not hesitate to contact practitioner for clarification. All questions answered to patients satisfaction. Patient verbalized understanding of diagnosis and treatments explained. To call sooner prior to next visit it any questions/concerns arise. 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 A1C at next visit. Pt intermittenly checks POC are reports fine . has not seen podiatry in quiet some time. Does have some neuropathy # Hyperlipidemia: Continue statin Case discussed with collaborating physician Doyle Infante who reviewed the assessment and plan. Chart, medications, labs, vital signs reviewed. Dictation was accomplished with the use of L[employer]3r voice recognition software, prone to medical misidentifications and grammatical errors. This is unintentional and the practitioner does try to identify and correct these, but some could still be present. Please do not hesitate to contact practitioner for clarification. All questions answered to patients satisfaction. Patient verbalized understanding of diagnosis and treatments explained. To call sooner prior to next visit it any questions/concerns arise. 03/02/2024 ARGENIS on CPAP (ICD-10 - G47.33) # Bilateral low back pain: Chronic problem, but acute exacerbation. 6/10 pain. Will obtain lumbar x-rays to see etiology. Suspect DDD. Consider PT or pain management for intravertebral steroid injections. 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 A1C at next visit. Pt intermittenly checks POC are reports fine . has not seen podiatry in quiet some time. Does have some neuropathy # Hyperlipidemia: Continue statin # CKD III. Baseline creaitnine 1.65. Followed by Dr. Guaman # Screenings: UTD #Degenerative disc disease: Xray ordered. May consider referring to PT or a pain clinical after imaging is reviewed. Physical Men Patient seen and examined. Comprehensive discussion was done on the following. 1. Nutrition: It is important to follow a healthy diet based on lots of vegetables and legumes and good fat. Avoid processed food and processed carbohydrates. Learn to prepare your own meals. Learn to read labels and avoid high fructose corn syrup, processed chemicals added to increase shelf life and preprepared meals. Avoid fast foods. Learn to eat slowly and plan meals for a week. Try to count calories and be mindful off daily calorie intake. Get into the habit of keeping an eye on your weight by using an appropriate scale. Learn to log exercise and discussed fitness Apps like Tutamee which can help keep log off calories taken versus calories burned. Local food should be preferred. Discussed Dirty Dozen Versus Clean Fifteen. Discussed healthy supplements like fish oil, Tumeric, Curcumin, Melatonin, Resveratrol, Probiotics, Vitamin-D, Alpha-Lipoic acid, Vitamin-D and coconut oil. 2. It is important to exercise regularly. Is a good habit to walk at least 30-45 minutes a day. Gentle weightlifting with standard precautions to protect the back. Finding activity like cycling or hiking and get into the habit of engaging in it. Stretching before and after the exercises important. It is also important to contact me if there are any problems like shortness of breath, chest pain, back pain and joint or muscle pain associated with the exercise. 3. Discussed age appropriate screening guidelines. Colonoscopy needs to start at age 50 with stool for occult blood as appropriate. There is a new test that can test for genetic abnormalities in the stool sample. This would not replace a colonoscopy but could be used as a screening tool for patients who do not want a colonoscopy. We discussed the importance of early detection of colon cancer. 4. Discussed current PSA screening. PSA screening can be done in most patients between age 50 and 65. However early detection of prostate cancer needs to carefully be balanced with complications with treatment. These include incontinence, impotence etc. Each patient should decide if they would like to have this test. 5. Discussed safe driving and no use of smart phone while driving 6. Age-appropriate immunizations were discussed. A tetanus booster is needed every 10 years. Flu vaccine is recommended every year just before the start of the flu season. Shingles vaccine is recommended after age 50 but not all insurances cover it. Pneumonia vaccine is given after age 65 unless there are certain comorbidities for which it is started earlier. 7. Diagnostic labs were discussed. These could include CBC CMP and lipids with fasting blood glucose and insulin levels. Vitamin D and hemoglobin A1c testing might be appropriate. Case discussed with collaborating physician Doyle Infante who reviewed the assessment and plan. Chart, medications, labs, vital signs reviewed. Dictation was accomplished with the use of Loud[employer]r voice recognition software, prone to medical misidentifications and grammatical errors. This is unintentional and the practitioner does try to identify and correct these, but some could still be present. Please do not hesitate to contact practitioner for clarification. All questions answered to patients satisfaction. Patient verbalized understanding of diagnosis and treatments explained. To call sooner prior to next visit it any questions/concerns arise. 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 A1C at next visit. Pt intermittenly checks POC are reports fine . has not seen podiatry in quiet some time. Does have some neuropathy # Hyperlipidemia: Continue statin Case discussed with collaborating physician Doyle Infante who reviewed the assessment and plan. Chart, medications, labs, vital signs reviewed. Dictation was accomplished with the use of Loud3r voice recognition software, prone to medical misidentifications and grammatical errors. This is unintentional and the practitioner does try to identify and correct these, but some could still be present. Please do not hesitate to contact practitioner for clarification. All questions answered to patients satisfaction. Patient verbalized understanding of diagnosis and treatments explained. To call sooner prior to next visit it any questions/concerns arise. 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 A1C at next visit. Pt intermittenly checks POC are reports fine . has not seen podiatry in quiet some time. Does have some neuropathy # Hyperlipidemia: Continue statin # CKD III. Baseline creaitnine 1.65. Followed by Dr. Guaman # Screenings: UTD Physical Men Patient seen and examined. Comprehensive discussion was done on the following. 1. Nutrition: It is important to follow a healthy diet based on lots of vegetables and legumes and good fat. Avoid processed food and processed carbohydrates. Learn to prepare your own meals. Learn to read labels and avoid high fructose corn syrup, processed chemicals added to increase shelf life and preprepared meals. Avoid fast foods. Learn to eat slowly and plan meals for a week. Try to count calories and be mindful off daily calorie intake. Get into the habit of keeping an eye on your weight by using an appropriate scale. Learn to log exercise and discussed fitness Apps like Tutamee which can help keep log off calories taken versus calories burned. Local food should be preferred. Discussed Dirty Dozen Versus Clean Fifteen. Discussed healthy supplements like fish oil, Tumeric, Curcumin, Melatonin, Resveratrol, Probiotics, Vitamin-D, Alpha-Lipoic acid, Vitamin-D and coconut oil. 2. It is important to exercise regularly. Is a good habit to walk at least 30-45 minutes a day. Gentle weightlifting with standard precautions to protect the back. Finding activity like cycling or hiking and get into the habit of engaging in it. Stretching before and after the exercises important. It is also important to contact me if there are any problems like shortness of breath, chest pain, back pain and joint or muscle pain associated with the exercise. 3. Discussed age appropriate screening guidelines. Colonoscopy needs to start at age 50 with stool for occult blood as appropriate. There is a new test that can test for genetic abnormalities in the stool sample. This would not replace a colonoscopy but could be used as a screening tool for patients who do not want a colonoscopy. We discussed the importance of early detection of colon cancer. 4. Discussed current PSA screening. PSA screening can be done in most patients between age 50 and 65. However early detection of prostate cancer needs to carefully be balanced with complications with treatment. These include incontinence, impotence etc. Each patient should decide if they would like to have this test. 5. Discussed safe driving and no use of smart phone while driving 6. Age-appropriate immunizations were discussed. A tetanus booster is needed every 10 years. Flu vaccine is recommended every year just before the start of the flu season. Shingles vaccine is recommended after age 50 but not all insurances cover it. Pneumonia vaccine is given after age 65 unless there are certain comorbidities for which it is started earlier. 7. Diagnostic labs were discussed. These could include CBC CMP and lipids with fasting blood glucose and insulin levels. Vitamin D and hemoglobin A1c testing might be appropriate. Case discussed with collaborating physician Doyle Infante who reviewed the assessment and plan. Chart, medications, labs, vital signs reviewed. Dictation was accomplished with the use of Loud3r voice recognition software, prone to medical misidentifications and grammatical errors. This is unintentional and the practitioner does try to identify and correct these, but some could still be present. Please do not hesitate to contact practitioner for clarification. All questions answered to patients satisfaction. Patient verbalized understanding of diagnosis and treatments explained. To call sooner prior to next visit it any questions/concerns arise. 04/06/2024 Bilateral low back pain, unspecified chronicity, unspecified whether sciatica present (ICD-10 - M54.50) Patient has presented with lower back pain. This has been going on but has been worsening recently. Patient describes moderate to severe pain. Discussed radiation into the legs numbness tingling or loss of function. Discussed symptoms of cauda equina including urinary and stool incontinence as well as loss of tone and foot drop. We also had a discussion on standard of care for management of back pain including strengthening of the core in the long run, use of anti-inflammatory medicines which can actually affect kidney function and cause peptic ulcer disease but can help with inflammation and pain temporarily use of steroids, which can have similar effects as nonsteroidal anti-inflammatory drugs but can also affect bone health, cause fluid retention impact immunity and many long-term impacts, discussed role of physical therapy chiropractor or acupuncture and stretching. Discussed that mostly imaging is not needed and CAT scan and MRIs can be avoided till using treatment protocols as above. In some cases MRIs and CAT scan are needed to identify disc disease like disc herniation cord compression and spinal stenosis. Also discussed the role of referral to pain management steroid injections, in the spine when appropriate. Shared decision making done. His back pain is now much better and he will follow-up with Christina as scheduled and continue other medications follow-up with Coumad[facility] clinic for INR adjustment 03/09/2024 Cerebral infarction, unspecified (ICD-10 - I63.9) Patient has presented with lower back pain. This has been going on but has been worsening recently. Patient describes moderate to severe pain. Discussed radiation into the legs numbness tingling or loss of function. Discussed symptoms of cauda equina including urinary and stool incontinence as well as loss of tone and foot drop. We also had a discussion on standard of care for management of back pain including strengthening of the core in the long run, use of anti-inflammatory medicines which can actually affect kidney function and cause peptic ulcer disease but can help with inflammation and pain temporarily use of steroids, which can have similar effects as nonsteroidal anti-inflammatory drugs but can also affect bone health, cause fluid retention impact immunity and many long-term impacts, discussed role of physical therapy chiropractor or acupuncture and stretching. Discussed that mostly imaging is not needed and CAT scan and MRIs can be avoided till using treatment protocols as above. In some cases MRIs and CAT scan are needed to identify disc disease like disc herniation cord compression and spinal stenosis. Also discussed the role of referral to pain management steroid injections, in the spine when appropriate. Shared decision making done. We will do nonsteroidal Celebrex adjust dose of Coumadin have a quick follow-up after 25 March continue with physical therapy muscle relaxer Flexeril at night will follow-up 08/17/2024 ARGENIS on CPAP (ICD-10 - G47.33) # Depression. Pt PHQ9 8. Discussed SSRI therapy, pt reluctant due to being on too many meds . 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 A1C at next visit. Pt intermittenly checks POC are reports fine . has not seen podiatry in quiet some time. Does have some neuropathy # Hyperlipidemia: Continue statin # CKD III. Baseline creaitnine 1.65. Followed by Dr. Deniz Kaba discussed with collaborating physician Doyle Infante who reviewed the assessment and plan. Chart, medications, labs, vital signs reviewed. Dictation was accomplished with the use of Loud3r voice recognition software, prone to medical misidentifications and grammatical errors. This is unintentional and the practitioner does try to identify and correct these, but some could still be present. Please do not hesitate to contact practitioner for clarification. All questions answered to patients satisfaction. Patient verbalized understanding of diagnosis and treatments explained. To call sooner prior to next visit it any questions/concerns arise. 05/31/2024 ARGENIS on CPAP (ICD-10 - G47.33) # Depression. Pt PHQ9 10. Discussed SSRI therapy, pt reluctant due to being on too many meds . Will start with therapist. 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 A1C at next visit. Pt intermittenly checks POC are reports fine . has not seen podiatry in quiet some time. Does have some neuropathy # Hyperlipidemia: Continue statin # CKD III. Baseline creaitnine 1.65. Followed by Dr. Deniz Kaba discussed with collaborating physician Doyle Infante who reviewed the assessment and plan. Chart, medications, labs, vital signs reviewed. Dictation was accomplished with the use of Loud3r voice recognition software, prone to medical misidentifications and grammatical errors. This is unintentional and the practitioner does try to identify and correct these, but some could still be present. Please do not hesitate to contact practitioner for clarification. All questions answered to patients satisfaction. Patient verbalized understanding of diagnosis and treatments explained. To call sooner prior to next visit it any questions/concerns arise. 08/17/2024 Hyperlipidemia, unspecified (ICD-10 - E78.5) # Depression. Pt PHQ9 8. Discussed SSRI therapy, pt reluctant due to being on too many meds . 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 A1C at next visit. Pt intermittenly checks POC are reports fine . has not seen podiatry in quiet some time. Does have some neuropathy # Hyperlipidemia: Continue statin # CKD III. Baseline creaitnine 1.65. Followed by Dr. Deniz Kaba discussed with collaborating physician Doyle Infante who reviewed the assessment and plan. Chart, medications, labs, vital signs reviewed. Dictation was accomplished with the use of Loud3r voice recognition software, prone to medical misidentifications and grammatical errors. This is unintentional and the practitioner does try to identify and correct these, but some could still be present. Please do not hesitate to contact practitioner for clarification. All questions answered to patients satisfaction. Patient verbalized understanding of diagnosis and treatments explained. To call sooner prior to next visit it any questions/concerns arise. 05/31/2024 Degenerative disc disease, lumbar (ICD-10 - M51.36) # Depression. Pt PHQ9 10. Discussed SSRI therapy, pt reluctant due to being on too many meds . Will start with therapist. 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 A1C at next visit. Pt intermittenly checks POC are reports fine . has not seen podiatry in quiet some time. Does have some neuropathy # Hyperlipidemia: Continue statin # CKD III. Baseline creaitnine 1.65. Followed by Dr. Deniz Kaba discussed with collaborating physician Doyle Infante who reviewed the assessment and plan. Chart, medications, labs, vital signs reviewed. Dictation was accomplished with the use of Loud3r voice recognition software, prone to medical misidentifications and grammatical errors. This is unintentional and the practitioner does try to identify and correct these, but some could still be present. Please do not hesitate to contact practitioner for clarification. All questions answered to patients satisfaction. Patient verbalized understanding of diagnosis and treatments explained. To call sooner prior to next visit it any questions/concerns arise. 03/02/2024 Degenerative disc disease, lumbar (ICD-10 - M51.36) # Bilateral low back pain: Chronic problem, but acute exacerbation. 03/01 pain. Will obtain lumbar x-rays to see etiology. Suspect DDD. Consider PT or pain management for intravertebral steroid injections. 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 A1C at next visit. Pt intermittenly checks POC are reports fine . has not seen podiatry in quiet some time. Does have some neuropathy # Hyperlipidemia: Continue statin # CKD III. Baseline creaitnine 1.65. Followed by Dr. Guaman # Screenings: UTD #Degenerative disc disease: Xray ordered. May consider referring to PT or a pain clinical after imaging is reviewed. Physical Men Patient seen and examined. Comprehensive discussion was done on the following. 1. Nutrition: It is important to follow a healthy diet based on lots of vegetables and legumes and good fat. Avoid processed food and processed carbohydrates. Learn to prepare your own meals. Learn to read labels and avoid high fructose corn syrup, processed chemicals added to increase shelf life and preprepared meals. Avoid fast foods. Learn to eat slowly and plan meals for a week. Try to count calories and be mindful off daily calorie intake. Get into the habit of keeping an eye on your weight by using an appropriate scale. Learn to log exercise and discussed fitness Apps like Tutamee which can help keep log off calories taken versus calories burned. Local food should be preferred. Discussed Dirty Dozen Versus Clean Fifteen. Discussed healthy supplements like fish oil, Tumeric, Curcumin, Melatonin, Resveratrol, Probiotics, Vitamin-D, Alpha-Lipoic acid, Vitamin-D and coconut oil. 2. It is important to exercise regularly. Is a good habit to walk at least 30-45 minutes a day. Gentle weightlifting with standard precautions to protect the back. Finding activity like cycling or hiking and get into the habit of engaging in it. Stretching before and after the exercises important. It is also important to contact me if there are any problems like shortness of breath, chest pain, back pain and joint or muscle pain associated with the exercise. 3. Discussed age appropriate screening guidelines. Colonoscopy needs to start at age 50 with stool for occult blood as appropriate. There is a new test that can test for genetic abnormalities in the stool sample. This would not replace a colonoscopy but could be used as a screening tool for patients who do not want a colonoscopy. We discussed the importance of early detection of colon cancer. 4. Discussed current PSA screening. PSA screening can be done in most patients between age 50 and 65. However early detection of prostate cancer needs to carefully be balanced with complications with treatment. These include incontinence, impotence etc. Each patient should decide if they would like to have this test. 5. Discussed safe driving and no use of smart phone while driving 6. Age-appropriate immunizations were discussed. A tetanus booster is needed every 10 years. Flu vaccine is recommended every year just before the start of the flu season. Shingles vaccine is recommended after age 50 but not all insurances cover it. Pneumonia vaccine is given after age 65 unless there are certain comorbidities for which it is started earlier. 7. Diagnostic labs were discussed. These could include CBC CMP and lipids with fasting blood glucose and insulin levels. Vitamin D and hemoglobin A1c testing might be appropriate. Case discussed with collaborating physician Doyle Infante who reviewed the assessment and plan. Chart, medications, labs, vital signs reviewed. Dictation was accomplished with the use of L[employer]3r voice recognition software, prone to medical misidentifications and grammatical errors. This is unintentional and the practitioner does try to identify and correct these, but some could still be present. Please do not hesitate to contact practitioner for clarification. All questions answered to patients satisfaction. Patient verbalized understanding of diagnosis and treatments explained. To call sooner prior to next visit it any questions/concerns arise. 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 A1C at next visit. Pt intermittenly checks POC are reports fine . has not seen podiatry in quiet some time. Does have some neuropathy # Hyperlipidemia: Continue statin # CKD III. Baseline creaitnine 1.65. Followed by Dr. Guaman # Screenings: UTD Physical Men Patient seen and examined. Comprehensive discussion was done on the following. 1. Nutrition: It is important to follow a healthy diet based on lots of vegetables and legumes and good fat. Avoid processed food and processed carbohydrates. Learn to prepare your own meals. Learn to read labels and avoid high fructose corn syrup, processed chemicals added to increase shelf life and preprepared meals. Avoid fast foods. Learn to eat slowly and plan meals for a week. Try to count calories and be mindful off daily calorie intake. Get into the habit of keeping an eye on your weight by using an appropriate scale. Learn to log exercise and discussed fitness Apps like Tutamee which can help keep log off calories taken versus calories burned. Local food should be preferred. Discussed Dirty Dozen Versus Clean Fifteen. Discussed healthy supplements like fish oil, Tumeric, Curcumin, Melatonin, Resveratrol, Probiotics, Vitamin-D, Alpha-Lipoic acid, Vitamin-D and coconut oil. 2. It is important to exercise regularly. Is a good habit to walk at least 30-45 minutes a day. Gentle weightlifting with standard precautions to protect the back. Finding activity like cycling or hiking and get into the habit of engaging in it. Stretching before and after the exercises important. It is also important to contact me if there are any problems like shortness of breath, chest pain, back pain and joint or muscle pain associated with the exercise. 3. Discussed age appropriate screening guidelines. Colonoscopy needs to start at age 50 with stool for occult blood as appropriate. There is a new test that can test for genetic abnormalities in the stool sample. This would not replace a colonoscopy but could be used as a screening tool for patients who do not want a colonoscopy. We discussed the importance of early detection of colon cancer. 4. Discussed current PSA screening. PSA screening can be done in most patients between age 50 and 65. However early detection of prostate cancer needs to carefully be balanced with complications with treatment. These include incontinence, impotence etc. Each patient should decide if they would like to have this test. 5. Discussed safe driving and no use of smart phone while driving 6. Age-appropriate immunizations were discussed. A tetanus booster is needed every 10 years. Flu vaccine is recommended every year just before the start of the flu season. Shingles vaccine is recommended after age 50 but not all insurances cover it. Pneumonia vaccine is given after age 65 unless there are certain comorbidities for which it is started earlier. 7. Diagnostic labs were discussed. These could include CBC CMP and lipids with fasting blood glucose and insulin levels. Vitamin D and hemoglobin A1c testing might be appropriate. Case discussed with collaborating physician Doyle Infante who reviewed the assessment and plan. Chart, medications, labs, vital signs reviewed. Dictation was accomplished with the use of Loud3r voice recognition software, prone to medical misidentifications and grammatical errors. This is unintentional and the practitioner does try to identify and correct these, but some could still be present. Please do not hesitate to contact practitioner for clarification. All questions answered to patients satisfaction. Patient verbalized understanding of diagnosis and treatments explained. To call sooner prior to next visit it any questions/concerns arise. 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 A1C at next visit. Pt intermittenly checks POC are reports fine . has not seen podiatry in quiet some time. Does have some neuropathy # Hyperlipidemia: Continue statin Case discussed with collaborating physician Doyle Infante who reviewed the assessment and plan. Chart, medications, labs, vital signs reviewed. Dictation was accomplished with the use of Loud3r voice recognition software, prone to medical misidentifications and grammatical errors. This is unintentional and the practitioner does try to identify and correct these, but some could still be present. Please do not hesitate to contact practitioner for clarification. All questions answered to patients satisfaction. Patient verbalized understanding of diagnosis and treatments explained. To call sooner prior to next visit it any questions/concerns arise. 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 A1C at next visit. Pt intermittenly checks POC are reports fine . has not seen podiatry in quiet some time. Does have some neuropathy # Hyperlipidemia: Continue statin Case discussed with collaborating physician Doyle Infante who reviewed the assessment and plan. Chart, medications, labs, vital signs reviewed. Dictation was accomplished with the use of Loud3r voice recognition software, prone to medical misidentifications and grammatical errors. This is unintentional and the practitioner does try to identify and correct these, but some could still be present. Please do not hesitate to contact practitioner for clarification. All questions answered to patients satisfaction. Patient verbalized understanding of diagnosis and treatments explained. To call sooner prior to next visit it any questions/concerns arise. 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 A1C at next visit. Pt intermittenly checks POC are reports fine . has not seen podiatry in quiet some time. Does have some neuropathy # Hyperlipidemia: Continue statin # CKD III. Baseline creaitnine 1.65. Followed by Dr. Guaman # Screenings: UTD Physical Men Patient seen and examined. Comprehensive discussion was done on the following. 1. Nutrition: It is important to follow a healthy diet based on lots of vegetables and legumes and good fat. Avoid processed food and processed carbohydrates. Learn to prepare your own meals. Learn to read labels and avoid high fructose corn syrup, processed chemicals added to increase shelf life and preprepared meals. Avoid fast foods. Learn to eat slowly and plan meals for a week. Try to count calories and be mindful off daily calorie intake. Get into the habit of keeping an eye on your weight by using an appropriate scale. Learn to log exercise and discussed fitness Apps like Tutamee which can help keep log off calories taken versus calories burned. Local food should be preferred. Discussed Dirty Dozen Versus Clean Fifteen. Discussed healthy supplements like fish oil, Tumeric, Curcumin, Melatonin, Resveratrol, Probiotics, Vitamin-D, Alpha-Lipoic acid, Vitamin-D and coconut oil. 2. It is important to exercise regularly. Is a good habit to walk at least 30-45 minutes a day. Gentle weightlifting with standard precautions to protect the back. Finding activity like cycling or hiking and get into the habit of engaging in it. Stretching before and after the exercises important. It is also important to contact me if there are any problems like shortness of breath, chest pain, back pain and joint or muscle pain associated with the exercise. 3. Discussed age appropriate screening guidelines. Colonoscopy needs to start at age 50 with stool for occult blood as appropriate. There is a new test that can test for genetic abnormalities in the stool sample. This would not replace a colonoscopy but could be used as a screening tool for patients who do not want a colonoscopy. We discussed the importance of early detection of colon cancer. 4. Discussed current PSA screening. PSA screening can be done in most patients between age 50 and 65. However early detection of prostate cancer needs to carefully be balanced with complications with treatment. These include incontinence, impotence etc. Each patient should decide if they would like to have this test. 5. Discussed safe driving and no use of smart phone while driving 6. Age-appropriate immunizations were discussed. A tetanus booster is needed every 10 years. Flu vaccine is recommended every year just before the start of the flu season. Shingles vaccine is recommended after age 50 but not all insurances cover it. Pneumonia vaccine is given after age 65 unless there are certain comorbidities for which it is started earlier. 7. Diagnostic labs were discussed. These could include CBC CMP and lipids with fasting blood glucose and insulin levels. Vitamin D and hemoglobin A1c testing might be appropriate. Case discussed with collaborating physician Doyle Infante who reviewed the assessment and plan. Chart, medications, labs, vital signs reviewed. Dictation was accomplished with the use of Loud3r voice recognition software, prone to medical misidentifications and grammatical errors. This is unintentional and the practitioner does try to identify and correct these, but some could still be present. Please do not hesitate to contact practitioner for clarification. All questions answered to patients satisfaction. Patient verbalized understanding of diagnosis and treatments explained. To call sooner prior to next visit it any questions/concerns arise. 03/02/2024 Hyperlipidemia, unspecified (ICD-10 - E78.5) # Bilateral low back pain: Chronic problem, but acute exacerbation. 03/01 pain. Will obtain lumbar x-rays to see etiology. Suspect DDD. Consider PT or pain management for intravertebral steroid injections. 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 A1C at next visit. Pt intermittenly checks POC are reports fine . has not seen podiatry in quiet some time. Does have some neuropathy # Hyperlipidemia: Continue statin # CKD III. Baseline creaitnine 1.65. Followed by Dr. Guaman # Screenings: UTD #Degenerative disc disease: Xray ordered. May consider referring to PT or a pain clinical after imaging is reviewed. Physical Men Patient seen and examined. Comprehensive discussion was done on the following. 1. Nutrition: It is important to follow a healthy diet based on lots of vegetables and legumes and good fat. Avoid processed food and processed carbohydrates. Learn to prepare your own meals. Learn to read labels and avoid high fructose corn syrup, processed chemicals added to increase shelf life and preprepared meals. Avoid fast foods. Learn to eat slowly and plan meals for a week. Try to count calories and be mindful off daily calorie intake. Get into the habit of keeping an eye on your weight by using an appropriate scale. Learn to log exercise and discussed fitness Apps like Tutamee which can help keep log off calories taken versus calories burned. Local food should be preferred. Discussed Dirty Dozen Versus Clean Fifteen. Discussed healthy supplements like fish oil, Tumeric, Curcumin, Melatonin, Resveratrol, Probiotics, Vitamin-D, Alpha-Lipoic acid, Vitamin-D and coconut oil. 2. It is important to exercise regularly. Is a good habit to walk at least 30-45 minutes a day. Gentle weightlifting with standard precautions to protect the back. Finding activity like cycling or hiking and get into the habit of engaging in it. Stretching before and after the exercises important. It is also important to contact me if there are any problems like shortness of breath, chest pain, back pain and joint or muscle pain associated with the exercise. 3. Discussed age appropriate screening guidelines. Colonoscopy needs to start at age 50 with stool for occult blood as appropriate. There is a new test that can test for genetic abnormalities in the stool sample. This would not replace a colonoscopy but could be used as a screening tool for patients who do not want a colonoscopy. We discussed the importance of early detection of colon cancer. 4. Discussed current PSA screening. PSA screening can be done in most patients between age 50 and 65. However early detection of prostate cancer needs to carefully be balanced with complications with treatment. These include incontinence, impotence etc. Each patient should decide if they would like to have this test. 5. Discussed safe driving and no use of smart phone while driving 6. Age-appropriate immunizations were discussed. A tetanus booster is needed every 10 years. Flu vaccine is recommended every year just before the start of the flu season. Shingles vaccine is recommended after age 50 but not all insurances cover it. Pneumonia vaccine is given after age 65 unless there are certain comorbidities for which it is started earlier. 7. Diagnostic labs were discussed. These could include CBC CMP and lipids with fasting blood glucose and insulin levels. Vitamin D and hemoglobin A1c testing might be appropriate. Case discussed with collaborating physician Doyle Infante who reviewed the assessment and plan. Chart, medications, labs, vital signs reviewed. Dictation was accomplished with the use of Loud3r voice recognition software, prone to medical misidentifications and grammatical errors. This is unintentional and the practitioner does try to identify and correct these, but some could still be present. Please do not hesitate to contact practitioner for clarification. All questions answered to patients satisfaction. Patient verbalized understanding of diagnosis and treatments explained. To call sooner prior to next visit it any questions/concerns arise. 04/06/2024 Essential (primary) hypertension (ICD-10 - I10) Patient has presented with lower back pain. This has been going on but has been worsening recently. Patient describes moderate to severe pain. Discussed radiation into the legs numbness tingling or loss of function. Discussed symptoms of cauda equina including urinary and stool incontinence as well as loss of tone and foot drop. We also had a discussion on standard of care for management of back pain including strengthening of the core in the long run, use of anti-inflammatory medicines which can actually affect kidney function and cause peptic ulcer disease but can help with inflammation and pain temporarily use of steroids, which can have similar effects as nonsteroidal anti-inflammatory drugs but can also affect bone health, cause fluid retention impact immunity and many long-term impacts, discussed role of physical therapy chiropractor or acupuncture and stretching. Discussed that mostly imaging is not needed and CAT scan and MRIs can be avoided till using treatment protocols as above. In some cases MRIs and CAT scan are needed to identify disc disease like disc herniation cord compression and spinal stenosis. Also discussed the role of referral to pain management steroid injections, in the spine when appropriate. Shared decision making done. His back pain is now much better and he will follow-up with Christina as scheduled and continue other medications follow-up with [facility] for INR adjustment 05/31/2024 Hyperlipidemia, unspecified (ICD-10 - E78.5) # Depression. Pt PHQ9 10. Discussed SSRI therapy, pt reluctant due to being on too many meds . Will start with therapist. 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 A1C at next visit. Pt intermittenly checks POC are reports fine . has not seen podiatry in quiet some time. Does have some neuropathy # Hyperlipidemia: Continue statin # CKD III. Baseline creaitnine 1.65. Followed by Dr. Guaman Case discussed with collaborating physician Doyle Infante who reviewed the assessment and plan. Chart, medications, labs, vital signs reviewed. Dictation was accomplished with the use of Loud3r voice recognition software, prone to medical misidentifications and grammatical errors. This is unintentional and the practitioner does try to identify and correct these, but some could still be present. Please do not hesitate to contact practitioner for clarification. All questions answered to patients satisfaction. Patient verbalized understanding of diagnosis and treatments explained. To call sooner prior to next visit it any questions/concerns arise. 08/17/2024 Anemia due to vitamin B12 deficiency, unspecified B12 deficiency type (ICD-10 - D51.9) # Depression. Pt PHQ9 8. Discussed SSRI therapy, pt reluctant due to being on too many meds . 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 A1C at next visit. Pt intermittenly checks POC are reports fine . has not seen podiatry in quiet some time. Does have some neuropathy # Hyperlipidemia: Continue statin # CKD III. Baseline creaitnine 1.65. Followed by Dr. Deniz Kaba discussed with collaborating physician Doyle Infante who reviewed the assessment and plan. Chart, medications, labs, vital signs reviewed. Dictation was accomplished with the use of Loud3r voice recognition software, prone to medical misidentifications and grammatical errors. This is unintentional and the practitioner does try to identify and correct these, but some could still be present. Please do not hesitate to contact practitioner for clarification. All questions answered to patients satisfaction. Patient verbalized understanding of diagnosis and treatments explained. To call sooner prior to next visit it any questions/concerns arise. 08/17/2024 Aortic valve replaced (ICD-10 - Z95.2) # Depression. Pt PHQ9 8. Discussed SSRI therapy, pt reluctant due to being on too many meds . 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 A1C at next visit. Pt intermittenly checks POC are reports fine . has not seen podiatry in quiet some time. Does have some neuropathy # Hyperlipidemia: Continue statin # CKD III. Baseline creaitnine 1.65. Followed by Dr. Deniz Kaba discussed with collaborating physician Doyle Infante who reviewed the assessment and plan. Chart, medications, labs, vital signs reviewed. Dictation was accomplished with the use of Loud3r voice recognition software, prone to medical misidentifications and grammatical errors. This is unintentional and the practitioner does try to identify and correct these, but some could still be present. Please do not hesitate to contact practitioner for clarification. All questions answered to patients satisfaction. Patient verbalized understanding of diagnosis and treatments explained. To call sooner prior to next visit it any questions/concerns arise. 05/31/2024 Anemia due to vitamin B12 deficiency, unspecified B12 deficiency type (ICD-10 - D51.9) # Depression. Pt PHQ9 10. Discussed SSRI therapy, pt reluctant due to being on too many meds . Will start with therapist. 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 A1C at next visit. Pt intermittenly checks POC are reports fine . has not seen podiatry in quiet some time. Does have some neuropathy # Hyperlipidemia: Continue statin # CKD III. Baseline creaitnine 1.65. Followed by Dr. Guaman Case discussed with collaborating physician Doyle Infante who reviewed the assessment and plan. Chart, medications, labs, vital signs reviewed. Dictation was accomplished with the use of Loud3r voice recognition software, prone to medical misidentifications and grammatical errors. This is unintentional and the practitioner does try to identify and correct these, but some could still be present. Please do not hesitate to contact practitioner for clarification. All questions answered to patients satisfaction. Patient verbalized understanding of diagnosis and treatments explained. To call sooner prior to next visit it any questions/concerns arise. 03/02/2024 Anemia due to vitamin B12 deficiency, unspecified B12 deficiency type (ICD-10 - D51.9) # Bilateral low back pain: Chronic problem, but acute exacerbation. 03/01 pain. Will obtain lumbar x-rays to see etiology. Suspect DDD. Consider PT or pain management for intravertebral steroid injections. 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 A1C at next visit. Pt intermittenly checks POC are reports fine . has not seen podiatry in quiet some time. Does have some neuropathy # Hyperlipidemia: Continue statin # CKD III. Baseline creaitnine 1.65. Followed by Dr. Guaman # Screenings: UTD #Degenerative disc disease: Xray ordered. May consider referring to PT or a pain clinical after imaging is reviewed. Physical Men Patient seen and examined. Comprehensive discussion was done on the following. 1. Nutrition: It is important to follow a healthy diet based on lots of vegetables and legumes and good fat. Avoid processed food and processed carbohydrates. Learn to prepare your own meals. Learn to read labels and avoid high fructose corn syrup, processed chemicals added to increase shelf life and preprepared meals. Avoid fast foods. Learn to eat slowly and plan meals for a week. Try to count calories and be mindful off daily calorie intake. Get into the habit of keeping an eye on your weight by using an appropriate scale. Learn to log exercise and discussed fitness Apps like Tutamee which can help keep log off calories taken versus calories burned. Local food should be preferred. Discussed Dirty Dozen Versus Clean Fifteen. Discussed healthy supplements like fish oil, Tumeric, Curcumin, Melatonin, Resveratrol, Probiotics, Vitamin-D, Alpha-Lipoic acid, Vitamin-D and coconut oil. 2. It is important to exercise regularly. Is a good habit to walk at least 30-45 minutes a day. Gentle weightlifting with standard precautions to protect the back. Finding activity like cycling or hiking and get into the habit of engaging in it. Stretching before and after the exercises important. It is also important to contact me if there are any problems like shortness of breath, chest pain, back pain and joint or muscle pain associated with the exercise. 3. Discussed age appropriate screening guidelines. Colonoscopy needs to start at age 50 with stool for occult blood as appropriate. There is a new test that can test for genetic abnormalities in the stool sample. This would not replace a colonoscopy but could be used as a screening tool for patients who do not want a colonoscopy. We discussed the importance of early detection of colon cancer. 4. Discussed current PSA screening. PSA screening can be done in most patients between age 50 and 65. However early detection of prostate cancer needs to carefully be balanced with complications with treatment. These include incontinence, impotence etc. Each patient should decide if they would like to have this test. 5. Discussed safe driving and no use of smart phone while driving 6. Age-appropriate immunizations were discussed. A tetanus booster is needed every 10 years. Flu vaccine is recommended every year just before the start of the flu season. Shingles vaccine is recommended after age 50 but not all insurances cover it. Pneumonia vaccine is given after age 65 unless there are certain comorbidities for which it is started earlier. 7. Diagnostic labs were discussed. These could include CBC CMP and lipids with fasting blood glucose and insulin levels. Vitamin D and hemoglobin A1c testing might be appropriate. Case discussed with collaborating physician Doyle Infante who reviewed the assessment and plan. Chart, medications, labs, vital signs reviewed. Dictation was accomplished with the use of Dragon voice recognition software, prone to medical misidentifications and grammatical errors. This is unintentional and the practitioner does try to identify and correct these, but some could still be present. Please do not hesitate to contact practitioner for clarification. All questions answered to patients satisfaction. Patient verbalized understanding of diagnosis and treatments explained. To call sooner prior to next visit it any questions/concerns arise. 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 A1C at next visit. Pt intermittenly checks POC are reports fine . has not seen podiatry in quiet some time. Does have some neuropathy # Hyperlipidemia: Continue statin Case discussed with collaborating physician Doyle Infante who reviewed the assessment and plan. Chart, medications, labs, vital signs reviewed. Dictation was accomplished with the use of Loud3r voice recognition software, prone to medical misidentifications and grammatical errors. This is unintentional and the practitioner does try to identify and correct these, but some could still be present. Please do not hesitate to contact practitioner for clarification. All questions answered to patients satisfaction. Patient verbalized understanding of diagnosis and treatments explained. To call sooner prior to next visit it any questions/concerns arise. 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 A1C at next visit. Pt intermittenly checks POC are reports fine . has not seen podiatry in quiet some time. Does have some neuropathy # Hyperlipidemia: Continue statin # CKD III. Baseline creaitnine 1.65. Followed by Dr. Guaman # Screenings: UTD Physical Men Patient seen and examined. Comprehensive discussion was done on the following. 1. Nutrition: It is important to follow a healthy diet based on lots of vegetables and legumes and good fat. Avoid processed food and processed carbohydrates. Learn to prepare your own meals. Learn to read labels and avoid high fructose corn syrup, processed chemicals added to increase shelf life and preprepared meals. Avoid fast foods. Learn to eat slowly and plan meals for a week. Try to count calories and be mindful off daily calorie intake. Get into the habit of keeping an eye on your weight by using an appropriate scale. Learn to log exercise and discussed fitness Apps like Tutamee which can help keep log off calories taken versus calories burned. Local food should be preferred. Discussed Dirty Dozen Versus Clean Fifteen. Discussed healthy supplements like fish oil, Tumeric, Curcumin, Melatonin, Resveratrol, Probiotics, Vitamin-D, Alpha-Lipoic acid, Vitamin-D and coconut oil. 2. It is important to exercise regularly. Is a good habit to walk at least 30-45 minutes a day. Gentle weightlifting with standard precautions to protect the back. Finding activity like cycling or hiking and get into the habit of engaging in it. Stretching before and after the exercises important. It is also important to contact me if there are any problems like shortness of breath, chest pain, back pain and joint or muscle pain associated with the exercise. 3. Discussed age appropriate screening guidelines. Colonoscopy needs to start at age 50 with stool for occult blood as appropriate. There is a new test that can test for genetic abnormalities in the stool sample. This would not replace a colonoscopy but could be used as a screening tool for patients who do not want a colonoscopy. We discussed the importance of early detection of colon cancer. 4. Discussed current PSA screening. PSA screening can be done in most patients between age 50 and 65. However early detection of prostate cancer needs to carefully be balanced with complications with treatment. These include incontinence, impotence etc. Each patient should decide if they would like to have this test. 5. Discussed safe driving and no use of smart phone while driving 6. Age-appropriate immunizations were discussed. A tetanus booster is needed every 10 years. Flu vaccine is recommended every year just before the start of the flu season. Shingles vaccine is recommended after age 50 but not all insurances cover it. Pneumonia vaccine is given after age 65 unless there are certain comorbidities for which it is started earlier. 7. Diagnostic labs were discussed. These could include CBC CMP and lipids with fasting blood glucose and insulin levels. Vitamin D and hemoglobin A1c testing might be appropriate. Case discussed with collaborating physician Doyle Infante who reviewed the assessment and plan. Chart, medications, labs, vital signs reviewed. Dictation was accomplished with the use of Loud3r voice recognition software, prone to medical misidentifications and grammatical errors. This is unintentional and the practitioner does try to identify and correct these, but some could still be present. Please do not hesitate to contact practitioner for clarification. All questions answered to patients satisfaction. Patient verbalized understanding of diagnosis and treatments explained. To call sooner prior to next visit it any questions/concerns arise. 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 A1C at next visit. Pt intermittenly checks POC are reports fine . has not seen podiatry in quiet some time. Does have some neuropathy # Hyperlipidemia: Continue statin # CKD III. Baseline creaitnine 1.65. Followed by Dr. Guaman # Screenings: UTD Physical Men Patient seen and examined. Comprehensive discussion was done on the following. 1. Nutrition: It is important to follow a healthy diet based on lots of vegetables and legumes and good fat. Avoid processed food and processed carbohydrates. Learn to prepare your own meals. Learn to read labels and avoid high fructose corn syrup, processed chemicals added to increase shelf life and preprepared meals. Avoid fast foods. Learn to eat slowly and plan meals for a week. Try to count calories and be mindful off daily calorie intake. Get into the habit of keeping an eye on your weight by using an appropriate scale. Learn to log exercise and discussed fitness Apps like Tutamee which can help keep log off calories taken versus calories burned. Local food should be preferred. Discussed Dirty Dozen Versus Clean Fifteen. Discussed healthy supplements like fish oil, Tumeric, Curcumin, Melatonin, Resveratrol, Probiotics, Vitamin-D, Alpha-Lipoic acid, Vitamin-D and coconut oil. 2. It is important to exercise regularly. Is a good habit to walk at least 30-45 minutes a day. Gentle weightlifting with standard precautions to protect the back. Finding activity like cycling or hiking and get into the habit of engaging in it. Stretching before and after the exercises important. It is also important to contact me if there are any problems like shortness of breath, chest pain, back pain and joint or muscle pain associated with the exercise. 3. Discussed age appropriate screening guidelines. Colonoscopy needs to start at age 50 with stool for occult blood as appropriate. There is a new test that can test for genetic abnormalities in the stool sample. This would not replace a colonoscopy but could be used as a screening tool for patients who do not want a colonoscopy. We discussed the importance of early detection of colon cancer. 4. Discussed current PSA screening. PSA screening can be done in most patients between age 50 and 65. However early detection of prostate cancer needs to carefully be balanced with complications with treatment. These include incontinence, impotence etc. Each patient should decide if they would like to have this test. 5. Discussed safe driving and no use of smart phone while driving 6. Age-appropriate immunizations were discussed. A tetanus booster is needed every 10 years. Flu vaccine is recommended every year just before the start of the flu season. Shingles vaccine is recommended after age 50 but not all insurances cover it. Pneumonia vaccine is given after age 65 unless there are certain comorbidities for which it is started earlier. 7. Diagnostic labs were discussed. These could include CBC CMP and lipids with fasting blood glucose and insulin levels. Vitamin D and hemoglobin A1c testing might be appropriate. Case discussed with collaborating physician Doyle Infante who reviewed the assessment and plan. Chart, medications, labs, vital signs reviewed. Dictation was accomplished with the use of Loud3r voice recognition software, prone to medical misidentifications and grammatical errors. This is unintentional and the practitioner does try to identify and correct these, but some could still be present. Please do not hesitate to contact practitioner for clarification. All questions answered to patients satisfaction. Patient verbalized understanding of diagnosis and treatments explained. To call sooner prior to next visit it any questions/concerns arise. 11/14/2023 Anemia due to vitamin B12 deficiency, unspecified B12 deficiency type (ICD-10 - D51.9) # Bilateral low back pain: Chronic problem, but overall stable # ARGENIS on CPAP: Recently obtained new CPAP # Chronic AC due to AVR- INR managed by outpt clinic per pt # T2DM. A1C at next visit. Pt intermittenly checks POC are reports fine . has not seen podiatry in quiet some time. Does have some neuropathy # Hyperlipidemia: Continue statin Case discussed with collaborating physician Doyle Infante who reviewed the assessment and plan. Chart, medications, labs, vital signs reviewed. Dictation was accomplished with the use of Loud3r voice recognition software, prone to medical misidentifications and grammatical errors. This is unintentional and the practitioner does try to identify and correct these, but some could still be present. Please do not hesitate to contact practitioner for clarification. All questions answered to patients satisfaction. Patient verbalized understanding of diagnosis and treatments explained. To call sooner prior to next visit it any questions/concerns arise. 03/02/2024 Aortic valve replaced (ICD-10 - Z95.2) # Bilateral low back pain: Chronic problem, but acute exacerbation. 03/01 pain. Will obtain lumbar x-rays to see etiology. Suspect DDD. Consider PT or pain management for intravertebral steroid injections. 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 A1C at next visit. Pt intermittenly checks POC are reports fine . has not seen podiatry in quiet some time. Does have some neuropathy # Hyperlipidemia: Continue statin # CKD III. Baseline creaitnine 1.65. Followed by Dr. Guaman # Screenings: UTD #Degenerative disc disease: Xray ordered. May consider referring to PT or a pain clinical after imaging is reviewed. Physical Men Patient seen and examined. Comprehensive discussion was done on the following. 1. Nutrition: It is important to follow a healthy diet based on lots of vegetables and legumes and good fat. Avoid processed food and processed carbohydrates. Learn to prepare your own meals. Learn to read labels and avoid high fructose corn syrup, processed chemicals added to increase shelf life and preprepared meals. Avoid fast foods. Learn to eat slowly and plan meals for a week. Try to count calories and be mindful off daily calorie intake. Get into the habit of keeping an eye on your weight by using an appropriate scale. Learn to log exercise and discussed fitness Apps like Tutamee which can help keep log off calories taken versus calories burned. Local food should be preferred. Discussed Dirty Dozen Versus Clean Fifteen. Discussed healthy supplements like fish oil, Tumeric, Curcumin, Melatonin, Resveratrol, Probiotics, Vitamin-D, Alpha-Lipoic acid, Vitamin-D and coconut oil. 2. It is important to exercise regularly. Is a good habit to walk at least 30-45 minutes a day. Gentle weightlifting with standard precautions to protect the back. Finding activity like cycling or hiking and get into the habit of engaging in it. Stretching before and after the exercises important. It is also important to contact me if there are any problems like shortness of breath, chest pain, back pain and joint or muscle pain associated with the exercise. 3. Discussed age appropriate screening guidelines. Colonoscopy needs to start at age 50 with stool for occult blood as appropriate. There is a new test that can test for genetic abnormalities in the stool sample. This would not replace a colonoscopy but could be used as a screening tool for patients who do not want a colonoscopy. We discussed the importance of early detection of colon cancer. 4. Discussed current PSA screening. PSA screening can be done in most patients between age 50 and 65. However early detection of prostate cancer needs to carefully be balanced with complications with treatment. These include incontinence, impotence etc. Each patient should decide if they would like to have this test. 5. Discussed safe driving and no use of smart phone while driving 6. Age-appropriate immunizations were discussed. A tetanus booster is needed every 10 years. Flu vaccine is recommended every year just before the start of the flu season. Shingles vaccine is recommended after age 50 but not all insurances cover it. Pneumonia vaccine is given after age 65 unless there are certain comorbidities for which it is started earlier. 7. Diagnostic labs were discussed. These could include CBC CMP and lipids with fasting blood glucose and insulin levels. Vitamin D and hemoglobin A1c testing might be appropriate. Case discussed with collaborating physician Doyle Infante who reviewed the assessment and plan. Chart, medications, labs, vital signs reviewed. Dictation was accomplished with the use of Loud[employer]r voice recognition software, prone to medical misidentifications and grammatical errors. This is unintentional and the practitioner does try to identify and correct these, but some could still be present. Please do not hesitate to contact practitioner for clarification. All questions answered to patients satisfaction. Patient verbalized understanding of diagnosis and treatments explained. To call sooner prior to next visit it any questions/concerns arise. 05/31/2024 Aortic valve replaced (ICD-10 - Z95.2) # Depression. Pt PHQ9 10. Discussed SSRI therapy, pt reluctant due to being on too many meds . Will start with therapist. 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 A1C at next visit. Pt intermittenly checks POC are reports fine . has not seen podiatry in quiet some time. Does have some neuropathy # Hyperlipidemia: Continue statin # CKD III. Baseline creaitnine 1.. Followed by Dr. Deniz Kaba discussed with collaborating physician Doyle Infante who reviewed the assessment and plan. Chart, medications, labs, vital signs reviewed. Dictation was accomplished with the use of Loud3r voice recognition software, prone to medical misidentifications and grammatical errors. This is unintentional and the practitioner does try to identify and correct these, but some could still be present. Please do not hesitate to contact practitioner for clarification. All questions answered to patients satisfaction. Patient verbalized understanding of diagnosis and treatments explained. To call sooner prior to next visit it any questions/concerns arise. 08/17/2024 Encounter for screening for other disorder (ICD-10 - Z13.89) # Depression. Pt PHQ9 8. Discussed SSRI therapy, pt reluctant due to being on too many meds . 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 A1C at next visit. Pt intermittenly checks POC are reports fine . has not seen podiatry in quiet some time. Does have some neuropathy # Hyperlipidemia: Continue statin # CKD III. Baseline creaitnine 1.65. Followed by Dr. Deniz Kaba discussed with collaborating physician Doyle Infante who reviewed the assessment and plan. Chart, medications, labs, vital signs reviewed. Dictation was accomplished with the use of Loud3r voice recognition software, prone to medical misidentifications and grammatical errors. This is unintentional and the practitioner does try to identify and correct these, but some could still be present. Please do not hesitate to contact practitioner for clarification. All questions answered to patients satisfaction. Patient verbalized understanding of diagnosis and treatments explained. To call sooner prior to next visit it any questions/concerns arise. 08/17/2024 Depression (ICD-10 - F32.A) # Depression. Pt PHQ9 8. Discussed SSRI therapy, pt reluctant due to being on too many meds . 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 A1C at next visit. Pt intermittenly checks POC are reports fine . has not seen podiatry in quiet some time. Does have some neuropathy # Hyperlipidemia: Continue statin # CKD III. Baseline creaitnine 1.65. Followed by Dr. Deniz Kaba discussed with collaborating physician Doyle Infante who reviewed the assessment and plan. Chart, medications, labs, vital signs reviewed. Dictation was accomplished with the use of Loud3r voice recognition software, prone to medical misidentifications and grammatical errors. This is unintentional and the practitioner does try to identify and correct these, but some could still be present. Please do not hesitate to contact practitioner for clarification. All questions answered to patients satisfaction. Patient verbalized understanding of diagnosis and treatments explained. To call sooner prior to next visit it any questions/concerns arise. 05/31/2024 Encounter for screening for other disorder (ICD-10 - Z13.89) # Depression. Pt PHQ9 10. Discussed SSRI therapy, pt reluctant due to being on too many meds . Will start with therapist. 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 A1C at next visit. Pt intermittenly checks POC are reports fine . has not seen podiatry in quiet some time. Does have some neuropathy # Hyperlipidemia: Continue statin # CKD III. Baseline creaitnine 1.65. Followed by Dr. Deniz Kaba discussed with collaborating physician Doyle Infante who reviewed the assessment and plan. Chart, medications, labs, vital signs reviewed. Dictation was accomplished with the use of Loud3r voice recognition software, prone to medical misidentifications and grammatical errors. This is unintentional and the practitioner does try to identify and correct these, but some could still be present. Please do not hesitate to contact practitioner for clarification. All questions answered to patients satisfaction. Patient verbalized understanding of diagnosis and treatments explained. To call sooner prior to next visit it any questions/concerns arise. 03/02/2024 Encounter for screening for other disorder (ICD-10 - Z13.89) # Bilateral low back pain: Chronic problem, but acute exacerbation. 03/01 pain. Will obtain lumbar x-rays to see etiology. Suspect DDD. Consider PT or pain management for intravertebral steroid injections. 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 A1C at next visit. Pt intermittenly checks POC are reports fine . has not seen podiatry in quiet some time. Does have some neuropathy # Hyperlipidemia: Continue statin # CKD III. Baseline creaitnine 1.65. Followed by Dr. Guaman # Screenings: UTD #Degenerative disc disease: Xray ordered. May consider referring to PT or a pain clinical after imaging is reviewed. Physical Men Patient seen and examined. Comprehensive discussion was done on the following. 1. Nutrition: It is important to follow a healthy diet based on lots of vegetables and legumes and good fat. Avoid processed food and processed carbohydrates. Learn to prepare your own meals. Learn to read labels and avoid high fructose corn syrup, processed chemicals added to increase shelf life and preprepared meals. Avoid fast foods. Learn to eat slowly and plan meals for a week. Try to count calories and be mindful off daily calorie intake. Get into the habit of keeping an eye on your weight by using an appropriate scale. Learn to log exercise and discussed fitness Apps like Tutamee which can help keep log off calories taken versus calories burned. Local food should be preferred. Discussed Dirty Dozen Versus Clean Fifteen. Discussed healthy supplements like fish oil, Tumeric, Curcumin, Melatonin, Resveratrol, Probiotics, Vitamin-D, Alpha-Lipoic acid, Vitamin-D and coconut oil. 2. It is important to exercise regularly. Is a good habit to walk at least 30-45 minutes a day. Gentle weightlifting with standard precautions to protect the back. Finding activity like cycling or hiking and get into the habit of engaging in it. Stretching before and after the exercises important. It is also important to contact me if there are any problems like shortness of breath, chest pain, back pain and joint or muscle pain associated with the exercise. 3. Discussed age appropriate screening guidelines. Colonoscopy needs to start at age 50 with stool for occult blood as appropriate. There is a new test that can test for genetic abnormalities in the stool sample. This would not replace a colonoscopy but could be used as a screening tool for patients who do not want a colonoscopy. We discussed the importance of early detection of colon cancer. 4. Discussed current PSA screening. PSA screening can be done in most patients between age 50 and 65. However early detection of prostate cancer needs to carefully be balanced with complications with treatment. These include incontinence, impotence etc. Each patient should decide if they would like to have this test. 5. Discussed safe driving and no use of smart phone while driving 6. Age-appropriate immunizations were discussed. A tetanus booster is needed every 10 years. Flu vaccine is recommended every year just before the start of the flu season. Shingles vaccine is recommended after age 50 but not all insurances cover it. Pneumonia vaccine is given after age 65 unless there are certain comorbidities for which it is started earlier. 7. Diagnostic labs were discussed. These could include CBC CMP and lipids with fasting blood glucose and insulin levels. Vitamin D and hemoglobin A1c testing might be appropriate. Case discussed with collaborating physician Doyle Infante who reviewed the assessment and plan. Chart, medications, labs, vital signs reviewed. Dictation was accomplished with the use of Loud3r voice recognition software, prone to medical misidentifications and grammatical errors. This is unintentional and the practitioner does try to identify and correct these, but some could still be present. Please do not hesitate to contact practitioner for clarification. All questions answered to patients satisfaction. Patient verbalized understanding of diagnosis and treatments explained. To call sooner prior to next visit it any questions/concerns arise. 02/19/2024 Aortic valve replaced (ICD-10 - Z95.2) # Bilateral low back pain: Chronic problem, but overall stable # ARGENIS on CPAP: Recently obtained new CPAP, esteban shows sleeping average 7.5 hours with < 0.2% episodes of apnea # Chronic AC due to AVR- INR managed by outpt clinic per pt # T2DM. A1C at next visit. Pt intermittenly checks POC are reports fine . has not seen podiatry in quiet some time. Does have some neuropathy # Hyperlipidemia: Continue statin # CKD III. Baseline creaitnine 1.65. Followed by Dr. Guaman # Screenings: UTD Physical Men Patient seen and examined. Comprehensive discussion was done on the following. 1. Nutrition: It is important to follow a healthy diet based on lots of vegetables and legumes and good fat. Avoid processed food and processed carbohydrates. Learn to prepare your own meals. Learn to read labels and avoid high fructose corn syrup, processed chemicals added to increase shelf life and preprepared meals. Avoid fast foods. Learn to eat slowly and plan meals for a week. Try to count calories and be mindful off daily calorie intake. Get into the habit of keeping an eye on your weight by using an appropriate scale. Learn to log exercise and discussed fitness Apps like Tutamee which can help keep log off calories taken versus calories burned. Local food should be preferred. Discussed Dirty Dozen Versus Clean Fifteen. Discussed healthy supplements like fish oil, Tumeric, Curcumin, Melatonin, Resveratrol, Probiotics, Vitamin-D, Alpha-Lipoic acid, Vitamin-D and coconut oil. 2. It is important to exercise regularly. Is a good habit to walk at least 30-45 minutes a day. Gentle weightlifting with standard precautions to protect the back. Finding activity like cycling or hiking and get into the habit of engaging in it. Stretching before and after the exercises important. It is also important to contact me if there are any problems like shortness of breath, chest pain, back pain and joint or muscle pain associated with the exercise. 3. Discussed age appropriate screening guidelines. Colonoscopy needs to start at age 50 with stool for occult blood as appropriate. There is a new test that can test for genetic abnormalities in the stool sample. This would not replace a colonoscopy but could be used as a screening tool for patients who do not want a colonoscopy. We discussed the importance of early detection of colon cancer. 4. Discussed current PSA screening. PSA screening can be done in most patients between age 50 and 65. However early detection of prostate cancer needs to carefully be balanced with complications with treatment. These include incontinence, impotence etc. Each patient should decide if they would like to have this test. 5. Discussed safe driving and no use of smart phone while driving 6. Age-appropriate immunizations were discussed. A tetanus booster is needed every 10 years. Flu vaccine is recommended every year just before the start of the flu season. Shingles vaccine is recommended after age 50 but not all insurances cover it. Pneumonia vaccine is given after age 65 unless there are certain comorbidities for which it is started earlier. 7. Diagnostic labs were discussed. These could include CBC CMP and lipids with fasting blood glucose and insulin levels. Vitamin D and hemoglobin A1c testing might be appropriate. Case discussed with collaborating physician Doyle Infante who reviewed the assessment and plan. Chart, medications, labs, vital signs reviewed. Dictation was accomplished with the use of L[employer]r voice recognition software, prone to medical misidentifications and grammatical errors. This is unintentional and the practitioner does try to identify and correct these, but some could still be present. Please do not hesitate to contact practitioner for clarification. All questions answered to patients satisfaction. Patient verbalized understanding of diagnosis and treatments explained. To call sooner prior to next visit it any questions/concerns arise. 11/14/2023 Vitamin D deficiency (ICD-10 - E55.9) # Bilateral low back pain: Chronic problem, but overall stable # ARGENIS on CPAP: Recently obtained new CPAP # Chronic AC due to AVR- INR managed by outpt clinic per pt # T2DM. A1C at next visit. Pt intermittenly checks POC are reports fine . has not seen podiatry in quiet some time. Does have some neuropathy # Hyperlipidemia: Continue statin Case discussed with collaborating physician Doyle Infante who reviewed the assessment and plan. Chart, medications, labs, vital signs reviewed. Dictation was accomplished with the use of Loud3r voice recognition software, prone to medical misidentifications and grammatical errors. This is unintentional and the practitioner does try to identify and correct these, but some could still be present. Please do not hesitate to contact practitioner for clarification. All questions answered to patients satisfaction. Patient verbalized understanding of diagnosis and treatments explained. To call sooner prior to next visit it any questions/concerns arise. 02/19/2024 Encounter for screening for other disorder (ICD-10 - Z13.89) # Bilateral low back pain: Chronic problem, but overall stable # ARGENIS on CPAP: Recently obtained new CPAP, esteban shows sleeping average 7.5 hours with < 0.2% episodes of apnea # Chronic AC due to AVR- INR managed by outpt clinic per pt # T2DM. A1C at next visit. Pt intermittenly checks POC are reports fine . has not seen podiatry in quiet some time. Does have some neuropathy # Hyperlipidemia: Continue statin # CKD III. Baseline creaitnine 1.65. Followed by Dr. Guaman # Screenings: UTD Physical Men Patient seen and examined. Comprehensive discussion was done on the following. 1. Nutrition: It is important to follow a healthy diet based on lots of vegetables and legumes and good fat. Avoid processed food and processed carbohydrates. Learn to prepare your own meals. Learn to read labels and avoid high fructose corn syrup, processed chemicals added to increase shelf life and preprepared meals. Avoid fast foods. Learn to eat slowly and plan meals for a week. Try to count calories and be mindful off daily calorie intake. Get into the habit of keeping an eye on your weight by using an appropriate scale. Learn to log exercise and discussed fitness Apps like Tutamee which can help keep log off calories taken versus calories burned. Local food should be preferred. Discussed Dirty Dozen Versus Clean Fifteen. Discussed healthy supplements like fish oil, Tumeric, Curcumin, Melatonin, Resveratrol, Probiotics, Vitamin-D, Alpha-Lipoic acid, Vitamin-D and coconut oil. 2. It is important to exercise regularly. Is a good habit to walk at least 30-45 minutes a day. Gentle weightlifting with standard precautions to protect the back. Finding activity like cycling or hiking and get into the habit of engaging in it. Stretching before and after the exercises important. It is also important to contact me if there are any problems like shortness of breath, chest pain, back pain and joint or muscle pain associated with the exercise. 3. Discussed age appropriate screening guidelines. Colonoscopy needs to start at age 50 with stool for occult blood as appropriate. There is a new test that can test for genetic abnormalities in the stool sample. This would not replace a colonoscopy but could be used as a screening tool for patients who do not want a colonoscopy. We discussed the importance of early detection of colon cancer. 4. Discussed current PSA screening. PSA screening can be done in most patients between age 50 and 65. However early detection of prostate cancer needs to carefully be balanced with complications with treatment. These include incontinence, impotence etc. Each patient should decide if they would like to have this test. 5. Discussed safe driving and no use of smart phone while driving 6. Age-appropriate immunizations were discussed. A tetanus booster is needed every 10 years. Flu vaccine is recommended every year just before the start of the flu season. Shingles vaccine is recommended after age 50 but not all insurances cover it. Pneumonia vaccine is given after age 65 unless there are certain comorbidities for which it is started earlier. 7. Diagnostic labs were discussed. These could include CBC CMP and lipids with fasting blood glucose and insulin levels. Vitamin D and hemoglobin A1c testing might be appropriate. Case discussed with collaborating physician Doyle Infante who reviewed the assessment and plan. Chart, medications, labs, vital signs reviewed. Dictation was accomplished with the use of Loud3r voice recognition software, prone to medical misidentifications and grammatical errors. This is unintentional and the practitioner does try to identify and correct these, but some could still be present. Please do not hesitate to contact practitioner for clarification. All questions answered to patients satisfaction. Patient verbalized understanding of diagnosis and treatments explained. To call sooner prior to next visit it any questions/concerns arise. 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 A1C at next visit. Pt intermittenly checks POC are reports fine . has not seen podiatry in quiet some time. Does have some neuropathy # Hyperlipidemia: Continue statin Case discussed with collaborating physician Doyle Infante who reviewed the assessment and plan. Chart, medications, labs, vital signs reviewed. Dictation was accomplished with the use of [employer] voice recognition software, prone to medical misidentifications and grammatical errors. This is unintentional and the practitioner does try to identify and correct these, but some could still be present. Please do not hesitate to contact practitioner for clarification. All questions answered to patients satisfaction. Patient verbalized understanding of diagnosis and treatments explained. To call sooner prior to next visit it any questions/concerns arise. 03/02/2024 Depression screen (ICD-10 - Z13.31) # Bilateral low back pain: Chronic problem, but acute exacerbation. 03/01 pain. Will obtain lumbar x-rays to see etiology. Suspect DDD. Consider PT or pain management for intravertebral steroid injections. 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 A1C at next visit. Pt intermittenly checks POC are reports fine . has not seen podiatry in quiet some time. Does have some neuropathy # Hyperlipidemia: Continue statin # CKD III. Baseline creaitnine 1.65. Followed by Dr. Guaman # Screenings: UTD #Degenerative disc disease: Xray ordered. May consider referring to PT or a pain clinical after imaging is reviewed. Physical Men Patient seen and examined. Comprehensive discussion was done on the following. 1. Nutrition: It is important to follow a healthy diet based on lots of vegetables and legumes and good fat. Avoid processed food and processed carbohydrates. Learn to prepare your own meals. Learn to read labels and avoid high fructose corn syrup, processed chemicals added to increase shelf life and preprepared meals. Avoid fast foods. Learn to eat slowly and plan meals for a week. Try to count calories and be mindful off daily calorie intake. Get into the habit of keeping an eye on your weight by using an appropriate scale. Learn to log exercise and discussed fitness Apps like Tutamee which can help keep log off calories taken versus calories burned. Local food should be preferred. Discussed Dirty Dozen Versus Clean Fifteen. Discussed healthy supplements like fish oil, Tumeric, Curcumin, Melatonin, Resveratrol, Probiotics, Vitamin-D, Alpha-Lipoic acid, Vitamin-D and coconut oil. 2. It is important to exercise regularly. Is a good habit to walk at least 30-45 minutes a day. Gentle weightlifting with standard precautions to protect the back. Finding activity like cycling or hiking and get into the habit of engaging in it. Stretching before and after the exercises important. It is also important to contact me if there are any problems like shortness of breath, chest pain, back pain and joint or muscle pain associated with the exercise. 3. Discussed age appropriate screening guidelines. Colonoscopy needs to start at age 50 with stool for occult blood as appropriate. There is a new test that can test for genetic abnormalities in the stool sample. This would not replace a colonoscopy but could be used as a screening tool for patients who do not want a colonoscopy. We discussed the importance of early detection of colon cancer. 4. Discussed current PSA screening. PSA screening can be done in most patients between age 50 and 65. However early detection of prostate cancer needs to carefully be balanced with complications with treatment. These include incontinence, impotence etc. Each patient should decide if they would like to have this test. 5. Discussed safe driving and no use of smart phone while driving 6. Age-appropriate immunizations were discussed. A tetanus booster is needed every 10 years. Flu vaccine is recommended every year just before the start of the flu season. Shingles vaccine is recommended after age 50 but not all insurances cover it. Pneumonia vaccine is given after age 65 unless there are certain comorbidities for which it is started earlier. 7. Diagnostic labs were discussed. These could include CBC CMP and lipids with fasting blood glucose and insulin levels. Vitamin D and hemoglobin A1c testing might be appropriate. Case discussed with collaborating physician Doyle Infante who reviewed the assessment and plan. Chart, medications, labs, vital signs reviewed. Dictation was accomplished with the use of L[employer] voice recognition software, prone to medical misidentifications and grammatical errors. This is unintentional and the practitioner does try to identify and correct these, but some could still be present. Please do not hesitate to contact practitioner for clarification. All questions answered to patients satisfaction. Patient verbalized understanding of diagnosis and treatments explained. To call sooner prior to next visit it any questions/concerns arise. 05/31/2024 Depression (ICD-10 - F32.A) # Depression. Pt PHQ9 10. Discussed SSRI therapy, pt reluctant due to being on too many meds . Will start with therapist. 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 A1C at next visit. Pt intermittenly checks POC are reports fine . has not seen podiatry in quiet some time. Does have some neuropathy # Hyperlipidemia: Continue statin # CKD III. Baseline creaitnine 1.65. Followed by Dr. Deniz Kaba discussed with collaborating physician Doyle Infante who reviewed the assessment and plan. Chart, medications, labs, vital signs reviewed. Dictation was accomplished with the use of L[employer]r voice recognition software, prone to medical misidentifications and grammatical errors. This is unintentional and the practitioner does try to identify and correct these, but some could still be present. Please do not hesitate to contact practitioner for clarification. All questions answered to patients satisfaction. Patient verbalized understanding of diagnosis and treatments explained. To call sooner prior to next visit it any questions/concerns arise. 08/17/2024 Obesity (BMI 30-39.9) (ICD-10 - E66.9) # Depression. Pt PHQ9 8. Discussed SSRI therapy, pt reluctant due to being on too many meds . 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 A1C at next visit. Pt intermittenly checks POC are reports fine . has not seen podiatry in quiet some time. Does have some neuropathy # Hyperlipidemia: Continue statin # CKD III. Baseline creaitnine 1.65. Followed by Dr. Deniz Kaba discussed with collaborating physician Doyle Infante who reviewed the assessment and plan. Chart, medications, labs, vital signs reviewed. Dictation was accomplished with the use of L[employer]r voice recognition software, prone to medical misidentifications and grammatical errors. This is unintentional and the practitioner does try to identify and correct these, but some could still be present. Please do not hesitate to contact practitioner for clarification. All questions answered to patients satisfaction. Patient verbalized understanding of diagnosis and treatments explained. To call sooner prior to next visit it any questions/concerns arise. 08/17/2024 BMI 34.0-34.9,adult (ICD-10 - Z68.34) # Depression. Pt PHQ9 8. Discussed SSRI therapy, pt reluctant due to being on too many meds . 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 A1C at next visit. Pt intermittenly checks POC are reports fine . has not seen podiatry in quiet some time. Does have some neuropathy # Hyperlipidemia: Continue statin # CKD III. Baseline creaitnine 1.65. Followed by Dr. Deniz Kaba discussed with collaborating physician Doyle Infante who reviewed the assessment and plan. Chart, medications, labs, vital signs reviewed. Dictation was accomplished with the use of Loud3r voice recognition software, prone to medical misidentifications and grammatical errors. This is unintentional and the practitioner does try to identify and correct these, but some could still be present. Please do not hesitate to contact practitioner for clarification. All questions answered to patients satisfaction. Patient verbalized understanding of diagnosis and treatments explained. To call sooner prior to next visit it any questions/concerns arise. 05/31/2024 Obesity (BMI 30-39.9) (ICD-10 - E66.9) # Depression. Pt PHQ9 10. Discussed SSRI therapy, pt reluctant due to being on too many meds . Will start with therapist. 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 A1C at next visit. Pt intermittenly checks POC are reports fine . has not seen podiatry in quiet some time. Does have some neuropathy # Hyperlipidemia: Continue statin # CKD III. Baseline creaitnine 1.65. Followed by Dr. Deniz Kaba discussed with collaborating physician Doyle Infante who reviewed the assessment and plan. Chart, medications, labs, vital signs reviewed. Dictation was accomplished with the use of L[employer]3r voice recognition software, prone to medical misidentifications and grammatical errors. This is unintentional and the practitioner does try to identify and correct these, but some could still be present. Please do not hesitate to contact practitioner for clarification. All questions answered to patients satisfaction. Patient verbalized understanding of diagnosis and treatments explained. To call sooner prior to next visit it any questions/concerns arise. 03/02/2024 Obesity (BMI 30-39.9) (ICD-10 - E66.9) # Bilateral low back pain: Chronic problem, but acute exacerbation. 03/01 pain. Will obtain lumbar x-rays to see etiology. Suspect DDD. Consider PT or pain management for intravertebral steroid injections. 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 A1C at next visit. Pt intermittenly checks POC are reports fine . has not seen podiatry in quiet some time. Does have some neuropathy # Hyperlipidemia: Continue statin # CKD III. Baseline creaitnine 1.65. Followed by Dr. Guaman # Screenings: UTD #Degenerative disc disease: Xray ordered. May consider referring to PT or a pain clinical after imaging is reviewed. Physical Men Patient seen and examined. Comprehensive discussion was done on the following. 1. Nutrition: It is important to follow a healthy diet based on lots of vegetables and legumes and good fat. Avoid processed food and processed carbohydrates. Learn to prepare your own meals. Learn to read labels and avoid high fructose corn syrup, processed chemicals added to increase shelf life and preprepared meals. Avoid fast foods. Learn to eat slowly and plan meals for a week. Try to count calories and be mindful off daily calorie intake. Get into the habit of keeping an eye on your weight by using an appropriate scale. Learn to log exercise and discussed fitness Apps like Tutamee which can help keep log off calories taken versus calories burned. Local food should be preferred. Discussed Dirty Dozen Versus Clean Fifteen. Discussed healthy supplements like fish oil, Tumeric, Curcumin, Melatonin, Resveratrol, Probiotics, Vitamin-D, Alpha-Lipoic acid, Vitamin-D and coconut oil. 2. It is important to exercise regularly. Is a good habit to walk at least 30-45 minutes a day. Gentle weightlifting with standard precautions to protect the back. Finding activity like cycling or hiking and get into the habit of engaging in it. Stretching before and after the exercises important. It is also important to contact me if there are any problems like shortness of breath, chest pain, back pain and joint or muscle pain associated with the exercise. 3. Discussed age appropriate screening guidelines. Colonoscopy needs to start at age 50 with stool for occult blood as appropriate. There is a new test that can test for genetic abnormalities in the stool sample. This would not replace a colonoscopy but could be used as a screening tool for patients who do not want a colonoscopy. We discussed the importance of early detection of colon cancer. 4. Discussed current PSA screening. PSA screening can be done in most patients between age 50 and 65. However early detection of prostate cancer needs to carefully be balanced with complications with treatment. These include incontinence, impotence etc. Each patient should decide if they would like to have this test. 5. Discussed safe driving and no use of smart phone while driving 6. Age-appropriate immunizations were discussed. A tetanus booster is needed every 10 years. Flu vaccine is recommended every year just before the start of the flu season. Shingles vaccine is recommended after age 50 but not all insurances cover it. Pneumonia vaccine is given after age 65 unless there are certain comorbidities for which it is started earlier. 7. Diagnostic labs were discussed. These could include CBC CMP and lipids with fasting blood glucose and insulin levels. Vitamin D and hemoglobin A1c testing might be appropriate. Case discussed with collaborating physician Doyle Infante who reviewed the assessment and plan. Chart, medications, labs, vital signs reviewed. Dictation was accomplished with the use of L[employer] voice recognition software, prone to medical misidentifications and grammatical errors. This is unintentional and the practitioner does try to identify and correct these, but some could still be present. Please do not hesitate to contact practitioner for clarification. All questions answered to patients satisfaction. Patient verbalized understanding of diagnosis and treatments explained. To call sooner prior to next visit it any questions/concerns arise. 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 A1C at next visit. Pt intermittenly checks POC are reports fine . has not seen podiatry in quiet some time. Does have some neuropathy # Hyperlipidemia: Continue statin # CKD III. Baseline creaitnine 1.65. Followed by Dr. Guaman # Screenings: UTD Physical Men Patient seen and examined. Comprehensive discussion was done on the following. 1. Nutrition: It is important to follow a healthy diet based on lots of vegetables and legumes and good fat. Avoid processed food and processed carbohydrates. Learn to prepare your own meals. Learn to read labels and avoid high fructose corn syrup, processed chemicals added to increase shelf life and preprepared meals. Avoid fast foods. Learn to eat slowly and plan meals for a week. Try to count calories and be mindful off daily calorie intake. Get into the habit of keeping an eye on your weight by using an appropriate scale. Learn to log exercise and discussed fitness Apps like Tutamee which can help keep log off calories taken versus calories burned. Local food should be preferred. Discussed Dirty Dozen Versus Clean Fifteen. Discussed healthy supplements like fish oil, Tumeric, Curcumin, Melatonin, Resveratrol, Probiotics, Vitamin-D, Alpha-Lipoic acid, Vitamin-D and coconut oil. 2. It is important to exercise regularly. Is a good habit to walk at least 30-45 minutes a day. Gentle weightlifting with standard precautions to protect the back. Finding activity like cycling or hiking and get into the habit of engaging in it. Stretching before and after the exercises important. It is also important to contact me if there are any problems like shortness of breath, chest pain, back pain and joint or muscle pain associated with the exercise. 3. Discussed age appropriate screening guidelines. Colonoscopy needs to start at age 50 with stool for occult blood as appropriate. There is a new test that can test for genetic abnormalities in the stool sample. This would not replace a colonoscopy but could be used as a screening tool for patients who do not want a colonoscopy. We discussed the importance of early detection of colon cancer. 4. Discussed current PSA screening. PSA screening can be done in most patients between age 50 and 65. However early detection of prostate cancer needs to carefully be balanced with complications with treatment. These include incontinence, impotence etc. Each patient should decide if they would like to have this test. 5. Discussed safe driving and no use of smart phone while driving 6. Age-appropriate immunizations were discussed. A tetanus booster is needed every 10 years. Flu vaccine is recommended every year just before the start of the flu season. Shingles vaccine is recommended after age 50 but not all insurances cover it. Pneumonia vaccine is given after age 65 unless there are certain comorbidities for which it is started earlier. 7. Diagnostic labs were discussed. These could include CBC CMP and lipids with fasting blood glucose and insulin levels. Vitamin D and hemoglobin A1c testing might be appropriate. Case discussed with collaborating physician Doyle Infante who reviewed the assessment and plan. Chart, medications, labs, vital signs reviewed. Dictation was accomplished with the use of [employer] voice recognition software, prone to medical misidentifications and grammatical errors. This is unintentional and the practitioner does try to identify and correct these, but some could still be present. Please do not hesitate to contact practitioner for clarification. All questions answered to patients satisfaction. Patient verbalized understanding of diagnosis and treatments explained. To call sooner prior to next visit it any questions/concerns arise. 03/02/2024 Advance care planning (ICD-10 - Z71.89) # Bilateral low back pain: Chronic problem, but acute exacerbation. 03/01 pain. Will obtain lumbar x-rays to see etiology. Suspect DDD. Consider PT or pain management for intravertebral steroid injections. 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 A1C at next visit. Pt intermittenly checks POC are reports fine . has not seen podiatry in quiet some time. Does have some neuropathy # Hyperlipidemia: Continue statin # CKD III. Baseline creaitnine 1.65. Followed by Dr. Guaman # Screenings: UTD #Degenerative disc disease: Xray ordered. May consider referring to PT or a pain clinical after imaging is reviewed. Physical Men Patient seen and examined. Comprehensive discussion was done on the following. 1. Nutrition: It is important to follow a healthy diet based on lots of vegetables and legumes and good fat. Avoid processed food and processed carbohydrates. Learn to prepare your own meals. Learn to read labels and avoid high fructose corn syrup, processed chemicals added to increase shelf life and preprepared meals. Avoid fast foods. Learn to eat slowly and plan meals for a week. Try to count calories and be mindful off daily calorie intake. Get into the habit of keeping an eye on your weight by using an appropriate scale. Learn to log exercise and discussed fitness Apps like Tutamee which can help keep log off calories taken versus calories burned. Local food should be preferred. Discussed Dirty Dozen Versus Clean Fifteen. Discussed healthy supplements like fish oil, Tumeric, Curcumin, Melatonin, Resveratrol, Probiotics, Vitamin-D, Alpha-Lipoic acid, Vitamin-D and coconut oil. 2. It is important to exercise regularly. Is a good habit to walk at least 30-45 minutes a day. Gentle weightlifting with standard precautions to protect the back. Finding activity like cycling or hiking and get into the habit of engaging in it. Stretching before and after the exercises important. It is also important to contact me if there are any problems like shortness of breath, chest pain, back pain and joint or muscle pain associated with the exercise. 3. Discussed age appropriate screening guidelines. Colonoscopy needs to start at age 50 with stool for occult blood as appropriate. There is a new test that can test for genetic abnormalities in the stool sample. This would not replace a colonoscopy but could be used as a screening tool for patients who do not want a colonoscopy. We discussed the importance of early detection of colon cancer. 4. Discussed current PSA screening. PSA screening can be done in most patients between age 50 and 65. However early detection of prostate cancer needs to carefully be balanced with complications with treatment. These include incontinence, impotence etc. Each patient should decide if they would like to have this test. 5. Discussed safe driving and no use of smart phone while driving 6. Age-appropriate immunizations were discussed. A tetanus booster is needed every 10 years. Flu vaccine is recommended every year just before the start of the flu season. Shingles vaccine is recommended after age 50 but not all insurances cover it. Pneumonia vaccine is given after age 65 unless there are certain comorbidities for which it is started earlier. 7. Diagnostic labs were discussed. These could include CBC CMP and lipids with fasting blood glucose and insulin levels. Vitamin D and hemoglobin A1c testing might be appropriate. Case discussed with collaborating physician Doyle Infante who reviewed the assessment and plan. Chart, medications, labs, vital signs reviewed. Dictation was accomplished with the use of Loud3r voice recognition software, prone to medical misidentifications and grammatical errors. This is unintentional and the practitioner does try to identify and correct these, but some could still be present. Please do not hesitate to contact practitioner for clarification. All questions answered to patients satisfaction. Patient verbalized understanding of diagnosis and treatments explained. To call sooner prior to next visit it any questions/concerns arise. 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 A1C at next visit. Pt intermittenly checks POC are reports fine . has not seen podiatry in quiet some time. Does have some neuropathy # Hyperlipidemia: Continue statin # CKD III. Baseline creaitnine 1.65. Followed by Dr. Guaman # Screenings: UTD Physical Men Patient seen and examined. Comprehensive discussion was done on the following. 1. Nutrition: It is important to follow a healthy diet based on lots of vegetables and legumes and good fat. Avoid processed food and processed carbohydrates. Learn to prepare your own meals. Learn to read labels and avoid high fructose corn syrup, processed chemicals added to increase shelf life and preprepared meals. Avoid fast foods. Learn to eat slowly and plan meals for a week. Try to count calories and be mindful off daily calorie intake. Get into the habit of keeping an eye on your weight by using an appropriate scale. Learn to log exercise and discussed fitness Apps like Tutamee which can help keep log off calories taken versus calories burned. Local food should be preferred. Discussed Dirty Dozen Versus Clean Fifteen. Discussed healthy supplements like fish oil, Tumeric, Curcumin, Melatonin, Resveratrol, Probiotics, Vitamin-D, Alpha-Lipoic acid, Vitamin-D and coconut oil. 2. It is important to exercise regularly. Is a good habit to walk at least 30-45 minutes a day. Gentle weightlifting with standard precautions to protect the back. Finding activity like cycling or hiking and get into the habit of engaging in it. Stretching before and after the exercises important. It is also important to contact me if there are any problems like shortness of breath, chest pain, back pain and joint or muscle pain associated with the exercise. 3. Discussed age appropriate screening guidelines. Colonoscopy needs to start at age 50 with stool for occult blood as appropriate. There is a new test that can test for genetic abnormalities in the stool sample. This would not replace a colonoscopy but could be used as a screening tool for patients who do not want a colonoscopy. We discussed the importance of early detection of colon cancer. 4. Discussed current PSA screening. PSA screening can be done in most patients between age 50 and 65. However early detection of prostate cancer needs to carefully be balanced with complications with treatment. These include incontinence, impotence etc. Each patient should decide if they would like to have this test. 5. Discussed safe driving and no use of smart phone while driving 6. Age-appropriate immunizations were discussed. A tetanus booster is needed every 10 years. Flu vaccine is recommended every year just before the start of the flu season. Shingles vaccine is recommended after age 50 but not all insurances cover it. Pneumonia vaccine is given after age 65 unless there are certain comorbidities for which it is started earlier. 7. Diagnostic labs were discussed. These could include CBC CMP and lipids with fasting blood glucose and insulin levels. Vitamin D and hemoglobin A1c testing might be appropriate. Case discussed with collaborating physician Doyle Infante who reviewed the assessment and plan. Chart, medications, labs, vital signs reviewed. Dictation was accomplished with the use of Loud3r voice recognition software, prone to medical misidentifications and grammatical errors. This is unintentional and the practitioner does try to identify and correct these, but some could still be present. Please do not hesitate to contact practitioner for clarification. All questions answered to patients satisfaction. Patient verbalized understanding of diagnosis and treatments explained. To call sooner prior to next visit it any questions/concerns arise. 05/31/2024 BMI 34.0-34.9,adult (ICD-10 - Z68.34) # Depression. Pt PHQ9 10. Discussed SSRI therapy, pt reluctant due to being on too many meds . Will start with therapist. 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 A1C at next visit. Pt intermittenly checks POC are reports fine . has not seen podiatry in quiet some time. Does have some neuropathy # Hyperlipidemia: Continue statin # CKD III. Baseline creaitnine 1.65. Followed by Dr. Guaman Case discussed with collaborating physician Doyle Infante who reviewed the assessment and plan. Chart, medications, labs, vital signs reviewed. Dictation was accomplished with the use of Loud3r voice recognition software, prone to medical misidentifications and grammatical errors. This is unintentional and the practitioner does try to identify and correct these, but some could still be present. Please do not hesitate to contact practitioner for clarification. All questions answered to patients satisfaction. Patient verbalized understanding of diagnosis and treatments explained. To call sooner prior to next visit it any questions/concerns arise. 02/19/2024 Advance care planning (ICD-10 - Z71.89) # Bilateral low back pain: Chronic problem, but overall stable # ARGENIS on CPAP: Recently obtained new CPAP, esteban shows sleeping average 7.5 hours with < 0.2% episodes of apnea # Chronic AC due to AVR- INR managed by outpt clinic per pt # T2DM. A1C at next visit. Pt intermittenly checks POC are reports fine . has not seen podiatry in quiet some time. Does have some neuropathy # Hyperlipidemia: Continue statin # CKD III. Baseline creaitnine 1.65. Followed by Dr. Guaman # Screenings: UTD Physical Men Patient seen and examined. Comprehensive discussion was done on the following. 1. Nutrition: It is important to follow a healthy diet based on lots of vegetables and legumes and good fat. Avoid processed food and processed carbohydrates. Learn to prepare your own meals. Learn to read labels and avoid high fructose corn syrup, processed chemicals added to increase shelf life and preprepared meals. Avoid fast foods. Learn to eat slowly and plan meals for a week. Try to count calories and be mindful off daily calorie intake. Get into the habit of keeping an eye on your weight by using an appropriate scale. Learn to log exercise and discussed fitness Apps like Tutamee which can help keep log off calories taken versus calories burned. Local food should be preferred. Discussed Dirty Dozen Versus Clean Fifteen. Discussed healthy supplements like fish oil, Tumeric, Curcumin, Melatonin, Resveratrol, Probiotics, Vitamin-D, Alpha-Lipoic acid, Vitamin-D and coconut oil. 2. It is important to exercise regularly. Is a good habit to walk at least 30-45 minutes a day. Gentle weightlifting with standard precautions to protect the back. Finding activity like cycling or hiking and get into the habit of engaging in it. Stretching before and after the exercises important. It is also important to contact me if there are any problems like shortness of breath, chest pain, back pain and joint or muscle pain associated with the exercise. 3. Discussed age appropriate screening guidelines. Colonoscopy needs to start at age 50 with stool for occult blood as appropriate. There is a new test that can test for genetic abnormalities in the stool sample. This would not replace a colonoscopy but could be used as a screening tool for patients who do not want a colonoscopy. We discussed the importance of early detection of colon cancer. 4. Discussed current PSA screening. PSA screening can be done in most patients between age 50 and 65. However early detection of prostate cancer needs to carefully be balanced with complications with treatment. These include incontinence, impotence etc. Each patient should decide if they would like to have this test. 5. Discussed safe driving and no use of smart phone while driving 6. Age-appropriate immunizations were discussed. A tetanus booster is needed every 10 years. Flu vaccine is recommended every year just before the start of the flu season. Shingles vaccine is recommended after age 50 but not all insurances cover it. Pneumonia vaccine is given after age 65 unless there are certain comorbidities for which it is started earlier. 7. Diagnostic labs were discussed. These could include CBC CMP and lipids with fasting blood glucose and insulin levels. Vitamin D and hemoglobin A1c testing might be appropriate. Case discussed with collaborating physician Doyle Infante who reviewed the assessment and plan. Chart, medications, labs, vital signs reviewed. Dictation was accomplished with the use of Loud3r voice recognition software, prone to medical misidentifications and grammatical errors. This is unintentional and the practitioner does try to identify and correct these, but some could still be present. Please do not hesitate to contact practitioner for clarification. All questions answered to patients satisfaction. Patient verbalized understanding of diagnosis and treatments explained. To call sooner prior to next visit it any questions/concerns arise. 03/02/2024 Back pain, unspecified back location, unspecified back pain laterality, unspecified chronicity (ICD-10 - M54.9) # Bilateral low back pain: Chronic problem, but acute exacerbation. 03/01 pain. Will obtain lumbar x-rays to see etiology. Suspect DDD. Consider PT or pain management for intravertebral steroid injections. 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 A1C at next visit. Pt intermittenly checks POC are reports fine . has not seen podiatry in quiet some time. Does have some neuropathy # Hyperlipidemia: Continue statin # CKD III. Baseline creaitnine 1.65. Followed by Dr. Guaman # Screenings: UTD #Degenerative disc disease: Xray ordered. May consider referring to PT or a pain clinical after imaging is reviewed. Physical Men Patient seen and examined. Comprehensive discussion was done on the following. 1. Nutrition: It is important to follow a healthy diet based on lots of vegetables and legumes and good fat. Avoid processed food and processed carbohydrates. Learn to prepare your own meals. Learn to read labels and avoid high fructose corn syrup, processed chemicals added to increase shelf life and preprepared meals. Avoid fast foods. Learn to eat slowly and plan meals for a week. Try to count calories and be mindful off daily calorie intake. Get into the habit of keeping an eye on your weight by using an appropriate scale. Learn to log exercise and discussed fitness Apps like Tutamee which can help keep log off calories taken versus calories burned. Local food should be preferred. Discussed Dirty Dozen Versus Clean Fifteen. Discussed healthy supplements like fish oil, Tumeric, Curcumin, Melatonin, Resveratrol, Probiotics, Vitamin-D, Alpha-Lipoic acid, Vitamin-D and coconut oil. 2. It is important to exercise regularly. Is a good habit to walk at least 30-45 minutes a day. Gentle weightlifting with standard precautions to protect the back. Finding activity like cycling or hiking and get into the habit of engaging in it. Stretching before and after the exercises important. It is also important to contact me if there are any problems like shortness of breath, chest pain, back pain and joint or muscle pain associated with the exercise. 3. Discussed age appropriate screening guidelines. Colonoscopy needs to start at age 50 with stool for occult blood as appropriate. There is a new test that can test for genetic abnormalities in the stool sample. This would not replace a colonoscopy but could be used as a screening tool for patients who do not want a colonoscopy. We discussed the importance of early detection of colon cancer. 4. Discussed current PSA screening. PSA screening can be done in most patients between age 50 and 65. However early detection of prostate cancer needs to carefully be balanced with complications with treatment. These include incontinence, impotence etc. Each patient should decide if they would like to have this test. 5. Discussed safe driving and no use of smart phone while driving 6. Age-appropriate immunizations were discussed. A tetanus booster is needed every 10 years. Flu vaccine is recommended every year just before the start of the flu season. Shingles vaccine is recommended after age 50 but not all insurances cover it. Pneumonia vaccine is given after age 65 unless there are certain comorbidities for which it is started earlier. 7. Diagnostic labs were discussed. These could include CBC CMP and lipids with fasting blood glucose and insulin levels. Vitamin D and hemoglobin A1c testing might be appropriate. Case discussed with collaborating physician Doyle Infante who reviewed the assessment and plan. Chart, medications, labs, vital signs reviewed. Dictation was accomplished with the use of Loud3r voice recognition software, prone to medical misidentifications and grammatical errors. This is unintentional and the practitioner does try to identify and correct these, but some could still be present. Please do not hesitate to contact practitioner for clarification. All questions answered to patients satisfaction. Patient verbalized understanding of diagnosis and treatments explained. To call sooner prior to next visit it any questions/concerns arise. 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 A1C at next visit. Pt intermittenly checks POC are reports fine . has not seen podiatry in quiet some time. Does have some neuropathy # Hyperlipidemia: Continue statin # CKD III. Baseline creaitnine 1.65. Followed by Dr. Guaman # Screenings: UTD Physical Men Patient seen and examined. Comprehensive discussion was done on the following. 1. Nutrition: It is important to follow a healthy diet based on lots of vegetables and legumes and good fat. Avoid processed food and processed carbohydrates. Learn to prepare your own meals. Learn to read labels and avoid high fructose corn syrup, processed chemicals added to increase shelf life and preprepared meals. Avoid fast foods. Learn to eat slowly and plan meals for a week. Try to count calories and be mindful off daily calorie intake. Get into the habit of keeping an eye on your weight by using an appropriate scale. Learn to log exercise and discussed fitness Apps like Tutamee which can help keep log off calories taken versus calories burned. Local food should be preferred. Discussed Dirty Dozen Versus Clean Fifteen. Discussed healthy supplements like fish oil, Tumeric, Curcumin, Melatonin, Resveratrol, Probiotics, Vitamin-D, Alpha-Lipoic acid, Vitamin-D and coconut oil. 2. It is important to exercise regularly. Is a good habit to walk at least 30-45 minutes a day. Gentle weightlifting with standard precautions to protect the back. Finding activity like cycling or hiking and get into the habit of engaging in it. Stretching before and after the exercises important. It is also important to contact me if there are any problems like shortness of breath, chest pain, back pain and joint or muscle pain associated with the exercise. 3. Discussed age appropriate screening guidelines. Colonoscopy needs to start at age 50 with stool for occult blood as appropriate. There is a new test that can test for genetic abnormalities in the stool sample. This would not replace a colonoscopy but could be used as a screening tool for patients who do not want a colonoscopy. We discussed the importance of early detection of colon cancer. 4. Discussed current PSA screening. PSA screening can be done in most patients between age 50 and 65. However early detection of prostate cancer needs to carefully be balanced with complications with treatment. These include incontinence, impotence etc. Each patient should decide if they would like to have this test. 5. Discussed safe driving and no use of smart phone while driving 6. Age-appropriate immunizations were discussed. A tetanus booster is needed every 10 years. Flu vaccine is recommended every year just before the start of the flu season. Shingles vaccine is recommended after age 50 but not all insurances cover it. Pneumonia vaccine is given after age 65 unless there are certain comorbidities for which it is started earlier. 7. Diagnostic labs were discussed. These could include CBC CMP and lipids with fasting blood glucose and insulin levels. Vitamin D and hemoglobin A1c testing might be appropriate. Case discussed with collaborating physician Doyle Infante who reviewed the assessment and plan. Chart, medications, labs, vital signs reviewed. Dictation was accomplished with the use of Loud3r voice recognition software, prone to medical misidentifications and grammatical errors. This is unintentional and the practitioner does try to identify and correct these, but some could still be present. Please do not hesitate to contact practitioner for clarification. All questions answered to patients satisfaction. Patient verbalized understanding of diagnosis and treatments explained. To call sooner prior to next visit it any questions/concerns arise. PLAN OF TREATMENT Pending Test Test Name Order Date Microalb/Creat Ratio, Randm Ur 8 Lipid Panel 10/27/2017 Comp. Metabolic Panel (14) 10/27/2017 CBC 10/27/2017 X ray : LS Spine 05/29/2023 Ultrasound : Artery Doppler Low Ext Righ t 05/20/2023 EKG 10/15/2021 25OH VITAMIN D 10/15/2021 AST (SGOT) 11/21/2021 CBC (COMPLETE BLOOD COUNT) 10/15/2021 CBC (COMPLETE BLOOD COUNT) 05/21/2021 CBC (COMPLETE BLOOD COUNT) 09/01/2018 CBC (COMPLETE BLOOD COUNT) 04/27/2019 CBC (COMPLETE BLOOD COUNT) 11/02/2019 CBC (COMPLETE BLOOD COUNT) 06/02/2020 COMPREHENSIVE METABOLIC PANEL 06/02/2020 COMPREHENSIVE METABOLIC PANEL 05/21/2021 COMPREHENSIVE METABOLIC PANEL 04/27/2019 COMPREHENSIVE METABOLIC PANEL 09/01/2018 COMPREHENSIVE METABOLIC PANEL 11/02/2019 COMPREHENSIVE METABOLIC PANEL 10/15/2021 HEMOGLOBIN A1C 10/15/2021 HEMOGLOBIN A1C 05/21/2021 HEMOGLOBIN A1C 10/27/2017 HEMOGLOBIN A1C 04/27/2019 HEMOGLOBIN A1C 11/02/2019 HEMOGLOBIN A1C 11/26/2022 HEMOGLOBIN A1C 06/02/2020 LIPID PANEL 06/02/2020 LIPID PANEL 11/02/2019 LIPID PANEL 04/27/2019 LIPID PANEL 09/01/2018 LIPID PANEL 05/21/2021 LIPID PANEL 10/15/2021 PSA, SCREEN 10/15/2021 TSH 10/15/2021 URINALYSIS, COMPLETE 09/01/2018 URINALYSIS, COMPLETE 04/27/2019 URINALYSIS, COMPLETE 11/02/2019 URINALYSIS, COMPLETE 06/02/2020 AST/SGOT 11/21/2021 US Extrem Non-Vascular RT 05/15/2023 PT/INR 04/27/2019 LIPID PANEL, STANDARD 04/06/2024 LIPID PANEL, STANDARD 11/14/2023 HEPATITIS PANEL, ACUTE W/REFLEX TO CONFI RMATION 11/21/2021 COMPREHENSIVE METABOLIC PANEL 11/14/2023 COMPREHENSIVE METABOLIC PANEL 04/06/2024 COMPREHENSIVE METABOLIC PANEL 02/19/2024 CBC (INCLUDES DIFF/PLT) 02/19/2024 CBC (INCLUDES DIFF/PLT) 04/06/2024 CBC (INCLUDES DIFF/PLT) 11/14/2023 URINALYSIS, COMPLETE 11/14/2023 HEMOGLOBIN A1c 02/19/2024 HEMOGLOBIN A1c 11/14/2023 VITAMIN B12 11/14/2023 PSA (FREE AND TOTAL) 11/14/2023 VITAMIN D,25-OH,TOTAL,IA 11/14/2023 COMPLETE URINALYSIS 10/15/2021 COMPLETE URINALYSIS 05/21/2021 Lumbar Spine 2 or 3 Views 03/02/2024 Future Test Test Name Order Date CBC (COMPLETE BLOOD COUNT) 05/05/2021 COMPREHENSIVE METABOLIC PANEL 05/05/2021 HEMOGLOBIN A1C 05/05/2021 COMPREHENSIVE METABOLIC PANEL 12/04/2022 HEMOGLOBIN A1C 12/04/2022 URINALYSIS W/REFLEX CULTURE 12/04/2022 Next Appt Details Provider Name:CHRISTINA WALTERS, 11/18/2024 11:30:00 AM, [address], [place], [address], Insurance Providers Payer Name Payer Address Payer Phone Subscriber Number Group Number Insured Name Patient Relationship to Insured Coverage Start Date Coverage End Date Medicare Part B J [address] [place] [address] [phone] [id number] IRVIN SUAZO Self - patient is the insured [employer] [address] [place] [address] [id number] IRVIN SUAZO Self - patient is the insured MEDICAL (GENERAL) HISTORY Medical History History ICD Code Chronic kidney disease, stage 3b N18.32 Essential (primary) hypertension I10 Anemia in chronic kidney disease D63.1 Diabetes mellitus type 2 in nonobese E11 .9 History of blood clots Z86.718 Presence of IVC filter Obstructive sleep apnea G47.33 BPH loc w/o ur obs/LUTS N40.0 Autoimmune hepatitis K75.4 Aortic valve replacement 2017 Surgical History Surgery Date(Month/Year) open heart 2007 IVC filter 2017 hernia repair AVR goal INR 2.5-3.5 [facility] Jul 2024
--- OUTSIDE RECORDS SUMMARY | 2024-09-02 00:16 | XMS_ITS ---
Author Organization [facility] Address [address] [place] [address] Care Team Providers Care Diamond Sizer And Grader Name Role Phone HERNANDEZJUMANA Primary Care Provider CHRISTINA WALTERS [phone] MEDICATIONS Medication SIG (Take, Route, Frequency, Duration) Notes Start Date End Date Status Lancets 30G - check twice a day dx e11.9 for 30 days 08/23/2024 Active Encounters Encounter Location Date Provider Diagnosis [facility] [address] [place] [address] 08/23/2024 CHRISTINA WALTERS PLAN OF TREATMENT Medication Medication Name Sig Start Date Stop Date Notes Lancets 30G - check twice a day dx e11.9 for 30 days 08/23 Next Appt Details Provider Name:CHRISTINA WALTERS, 11/18/2024 11:30:00 AM, [address], [place], [address], Progress Notes * IRVIN SUAZODOB:[birth year] (79 yo M)Acc No.[id number]:08/23/2024 Patient:??IRVIN SUAZO PIPPA ID :[id number]?Age:79 Y?Sex:Meliza de león Address:[address] [place] [address] * Refills?? Start Lancets 30G Miscellaneous, -, 100, check twice a day dx e11.9, 30 days, Refills=11 * true * Date:??
== END 2024-09-01 10:34 | disposition home or self-care (01) ==
LOC: HO.ACS 10:19
PROVIDERS: PCP Physician Assistant Medical; Visit Provider Internal Medicine
DX: Z79.01 Long term (current) use of anticoagulants (principal)

== ENCOUNTER → 2024-09-01 10:19 | Outpatient (BNVA) | payer MEDICARE, SELFPAY | PROVIDERS: PCP Physician Assistant Medical; Visit Provider Internal Medicine | DX: I26.99 Other pulmonary embolism without acute cor pulmonale (principal); Z79.01 Long term (current) use of anticoagulants; Z51.81 Encounter for therapeutic drug level monitoring | CPT/HCPCS: 85610; 99211 ==

== ENCOUNTER 2024-09-14 10:12 | Outpatient (AMB) | payer MEDICARE, SELFPAY ==
--- OUTSIDE RECORDS SUMMARY | 2024-09-14 10:14 | XMS_ITS ---
Author Organization [employer] [facility] Address [address] [facility] [place] [address] Care Team Providers Care Internist Medical Doctor Md Name Role Phone JUMANA HERNANDEZ Primary Care Provider CHRISTINA WALTERS Unavailable [phone] REASON FOR VISIT CCM Encounters Encounter Location Date Provider Diagnosis [facility] [address] [facility] [address] [place] [address] 08/27/2024 JUMANA HERNANDEZ PLAN OF TREATMENT Next Appt Details Provider Name:CHRISTINA WALTERS, 11/18/2024 11:30:00 AM, [address], [place], [address], Progress Notes * IRVIN SUAZODOB:[birth year] (79 yo M)Acc No.[id number]:08/27/2024 Patient:??LAKEISHA IRVIN PIPPA ID :[id number]?Age:79 Y?Sex:Ma sarthak Address:[address] [place] [address] * true * Date:??
--- OUTSIDE RECORDS SUMMARY | 2024-09-14 10:14 | XMS_ITS ---
Author Organization [facility] Address [address] [place] [address] Care Team Providers Care Ticket Broker Name Role Phone JUMANA HERNANDEZ Primary Care Provider CHRISTINA WALTERS Unavailable [phone] REASON FOR VISIT FYI and TY message Encounters Encounter Location Date Provider Diagnosis [facility] [address] [facility] [address] [place] [address] 08/24/2024 JUMANA HERNANDEZ PLAN OF TREATMENT Next Appt Details Provider Name:CHRISTINA WALTERS, 11/18/2024 11:30:00 AM, [address], [place], [address], Progress Notes * IRVIN SUAZODOB:[birth year] (79 yo M)Acc No.[id number]:08/24/2024 Patient:??IRVIN SUAZO PIPPA ID :[id number]?Age:79 Y?Sex:Meliza sarthak Address:[address] [place] [address] * true * Date:??
--- OUTSIDE RECORDS SUMMARY | 2024-09-14 10:15 | XMS_ITS ---
Author Organization [facility] Address [address] [place] [address] Care Team Providers Care Bunch Breaker Name Role Phone HERNANDEZJUMANA Primary Care Provider CHRISTINA WALTERS [phone] MEDICATIONS Medication SIG (Take, Route, Frequency, Duration) Notes Start Date End Date Status Lancets 30G - check twice a day dx e11.9 for 30 days 08/23/2024 Active Encounters Encounter Location Date Provider Diagnosis [facility] [address] [place] [address] 08/23/2024 CHRISTINA WALTERS PLAN OF TREATMENT Medication Medication Name Sig Start Date Stop Date Notes Lancets 30G - check twice a day dx e11.9 for 30 days 08/23 Next Appt Details Provider Name:CHRISTINA WALTERS, 11/18/2024 11:30:00 AM, [address] [place], [address], Progress Notes * IRVIN SUAZODOB:[birth year] (79 yo M)Acc No.[id number]:08/23/2024 Patient:??IRVIN SUAZO PIPPA ID :[id number]?Age:79 Y?Sex:Meliza de león Address:[address] [place] [address] * Refills?? Start Lancets 30G Miscellaneous, -, 100, check twice a day dx e11.9, 30 days, Refills=11 * true * Date:??
--- OUTSIDE RECORDS SUMMARY | 2024-09-14 10:15 | XMS_ITS | Patient Health Record ---
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 Name Role Phone INFANTE, JUMANA Primary Care Provider CHRISTINA WALTERS [phone] ALLERGIES Allergen (clinical drug ingredient) Drug/Non Drug Allergy documented on EMR Reaction Allergy Type Onset Date Status morphine morphine (uncoded) Unknown Allergy A ctive enoxaparin Lovenox BLEEDS Drug Allergy Active RESULTS Component Value Reference Range Notes URINALYSIS Reviewed date:01/26/2024 12:40:02 PM Interpretation: Performing Lab: Notes/Report: Note Original Ordering Provider: CHRISTINA WALTERS PA-C (EMERY) [employer], [place] [address] Sinker Winder - Dora Marin MD GLUCOSE, (UA) NEGATIVE NEGATIVE mg/dL BILIRUBIN, URINE NEGATIVE NEGATIVE KETONE, URINE NEGATIVE NEGATIVE mg/dL SPECIFIC GRAVITY, URINE 1.015 1.003-1.030 BLOOD, URINE SMALL NEGATIVE PH, URINE 7.0 5.0-8.0 PROTEIN, URINE 100 <= TRACE mg/dl UROBILINOGEN, URINE 0.2 0.2-1.0 E.U./dL NITRITE, URINE POSITIVE NEGATIVE LEUKOCYTE ESTERASE, URINE LARGE NEGATIVE Note Original Ordering Provider: CHRISTINA WALTERS PA-C (EMERY) [employer], a member of [address] [address] [employer] - Dora Marin MD GLYCOHEMOGLOBIN PROFILE Reviewed [...] Original Ordering Provider: CHRISTINA WALTERS PA-C (EMERY) [employer] [address] [employer] - Dora Marin MD GLUCOSE 190 70-100 [...] Original Ordering Provider: CHRISTINA WALTERS PA-C (EMERY) [employer] [address] [employer] - Dora Marin MD COMPREHENSIVE METABOLIC PANE [...] Notes/Report: Original Ordering Provider: CHRISTINA MALDONADO (EMERY)[facility] VITAMIN D 25 HYDROXY Reviewed date:07/27/2024 [...] Creatinine, Urine 105.0 REASON FOR REFERRAL Reason [facility]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 in 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 and prescribed c pap machine - machine fan broke needs new one has seizures when he does not use machine Diagnosis 1 Obstructive sleep ap narciso (G47.33) Diagnosis 2 ARGENIS on CPAP (G47.33) Referral Organization [facility] Referring Provider First Name CHRISTINA Referring Provider Last Name SELENA Referring Provider Speciality Internal edicine Referred Provider Specialty Sleep Medici ne Clinical Notes brissa willett 0 10/14/2023 01:33:52 PM > faxed to [facility] [phone], brissa willett 11/25/2023 09:49:04 AM >spoke with pt he got new machine Referral Priority Routine Reason x ray shows degenera tive changes and large osteophyte Diagnosis 1 Back pain, unspecifi ed back location, unspecified back pain laterality, unspecified chronicity (M54.9) Diagnosis 2 Bilateral low back p ain, unspecified chronicity, unspecified whether sciatica present (M54.50) Referral Organization [facility] Referring Provider First Name CHRISTINA Referring Provider Last Name SELENA Referring Provider Speciality Internal edicine Referred Provider Specialty Physical The rapist Clinical Notes brissa willett 0 03/04/2024 09:42:00 AM >faxed to RENE johnson phone # [phone] and fax # [phone] pt aware to call and gael Referral [...] 500-1000-40 MG-UNT-[employer] Orally Active OneTouch Delica Plus [id number] - DIRECTED TO TEST BLOOD GLUCOSE LEVELS [...] mo smokes , second hand sm mo PROBLEMS Problem Type ICD Code Onset Dates Problem Status W/U Status Risk SNOMED Code Notes Problem 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) Active confirmed Anemi a in chronic kidney disease (108620875) Problem Type 2 diabetes mellitus with diabetic chronic kidney disease (E11.22) Active confirmed Diabetic renal disease (339798276) Problem Type 2 diabetes mellitus with hyperglycemia (E11.65) Active confirmed Hyper glycemia due to type 2 diabetes mellitus (822668368648147 ) Problem Type 2 diabetes mellitus with unspecified complications (E11.8) Active confirmed Disord er due to type 2 diabetes mellitus (879793099) Problem Type 2 diabetes mellitus without complications (E11.9) Active confirmed Type I I diabetes mellitus without complication (340036018) Problem Vitamin D deficiency , unspecified (E55.9) Active confirmed 58875990 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 922892350 Problem Hyperlipidemia, unspecified (E78.5) Active confirmed Hyperlip idemia (50039226) Problem Essential (primary) hypertension (I10) Active confirmed Essential hypertension (08501542) Problem Cerebral infarction, unspecified (I63.9) Active confirmed Cerebral infarction (684454348) Problem Autoimmune hepatitis (K75.4) Active confirmed 888292724 Problem Chronic kidney disease, stage 3 (moderate) (N18.3) Active confirmed Chronic k idney disease stage 3 (disorder) (955077115) Problem MCFP (current) use of anticoagulants (Z79.01) Active confirmed Long-term current use of anticoagulant (046460367) Problem Benign prostatic hyperplasia without lower urinary tract symptoms (N40.0) Active confirmed Benign pros tatic hypertrophy without outflow obstruction (574708755) Problem Back pain, unspecifi ed back location, unspecified back pain laterality, unspecified chronicity (M54.9) Active confirmed 226228236 Problem Adult general medica l exam (Z00.00) Active confirmed Adult health examination (169323573) Problem Hypothyroidism, unspecified type (E03.9) Active confirmed Hypothyroidism (63299157) Problem Annual physical exam (Z00.00) Active confirmed 724083633 Problem Vitamin D deficiency (E55.9) Active confirmed Vitamin D deficiency (30470146) Problem Chronic anticoagulation (Z79.01) Active confirmed Use of anticoagulation (015273549) Problem Obesity (BMI 30-39.9 ) (E66.9) Active confirmed Obesity (317926629) Problem Type 2 diabetes mellitus without complication, unspecified whether halfway insulin use (E11.9) Active confirmed 101668571 Problem Chronic kidney disease, stage 3b (N18.32) Active confirmed Chronic kidney disease stage 3B (disorder) (769404807) Problem Obstructive sleep apnea (G47.33) Active confirmed Obstructive sleep apnea (23498264) Problem Prostate cancer screening (Z12.5) Active confirmed Screening for malignant neoplasm of prostate (938544739) Problem 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, 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) Active confirmed Vitamin B>12< deficiency anaemia (62543008) Problem BMI 34.0-34.9,adult (Z68.34) Active confirmed 361952592 Problem Degenerative disc disease, lumbar (M51.36) Active confirmed Degeneration of lumbar intervertebral disc (93736636) Problem BPH loc w/o ur obs/LUTS (N40.0) Active confirmed Benign pros tatic hypertrophy without outflow obstruction (583393206) Problem Transaminitis (R74.01) Active confirmed 372357104 Problem Bilateral low back pain, unspecified chronicity, unspecified whether sciatica present (M54.50) Active confirmed 333216414 Problem Aortic valve disease (I35.9) Active confirmed Aortic valve disease (3496615) Problem Aortic valve replace d (Z95.2) Active confirmed History of hear t valve repair with prosthesis (216856393862190 ) Problem Diabetes mellitus ty pe 2 in nonobese (E11.9) Active confirmed Diabet es mellitus type 2 in nonobese (677579556) Problem ARGENIS on CPAP (G47.33) Active confirmed O bstructive sleep apnea syndrome (22191390) VITAL SIGNS Heart Rate 70 /min 08/17/2024 Oximetry 96 % 08/17/2024 Blood pressure diastolic 90 mm Hg 08/17/2024 Height 66 in 08/17/2024 Blood pressure systolic 118 mm Hg 08/17/2024 Weight 207.8 lbs 08/17/2024 BMI 33.54 kg/m2 08/17/2024 Encounters Encounter Location Date Provider Diagnosis [facility] [address] [place] [address] 07/01/2024 CHRISTINA WALTERS [facility] [address] [place] [address] 11/14/2023 CHRISTINA WALTERS Chronic anticoagulat ion Z79.01 [...] deficiency E55.9 and Aortic valve replaced Z95.2 [facility] [address] [place] [address] 02/19/2024 CHRISTINA WALTERS Type 2 diabetes phuong [...] care planning Z71.89 and BMI 34.0-34.9,adult Z68.34 [facility] [address] [place] [address] 03/02/2024 CHRISTINA WALTERS Type 2 diabetes phuong [...] unspecified back pain laterality, unspecified chronicity M54.9 [place] [address] [address] 03/09/2024 TALAL INFANTE Back pain, unspecifi ed back location, unspecified back pain laterality, unspecified chronicity M54.9 ; Hyperlipidemia, unspecified E78.5 ; Type 2 diabetes mellitus without complications E11.9 and Cerebral infarction, unspecified I63.9 [place] [address] 04/06/2024 TALAL INFANTE Hyperlipidemia, unspecified E78.5 ; Cerebral infarction, unspecified I63.9 ; Benign prostatic hyperplasia without lower urinary tract symptoms N40.0 ; Bilateral low back pain, unspecified chronicity, unspecified whether sciatica present M54.50 and Essential (primary) hypertension I10 [facility] [address] [place] [address] 05/31/2024 CHRISTINA WALTERS Type 2 diabetes phuong [...] (BMI 30-39.9) E66.9 and BMI 34.0-34.9,adult Z68.34 [facility] [address] [place] [address] 08/17/2024 CHRISTINA WALTERS Type 2 diabetes phuong [...] [address] [place] [address] 10/14/2023 JUMANA INFANTE [address] [place] [address] 10/14/2023 CHRISTINA MICHAELA [address] [place] [address] 11/07/2023 CHRISTINA MICHAELA [address] [place] [address] 01/26/2024 CHRISTINA SELENA [address] [place] [address] 02/04/[address] [facility] [address] [place] [address] 03/01/[address] [place] [address] 03/03/2024 CHRISTINA MICHAELA [address] [place] [address] 03/04/[address] [facility] [address] [place] [address] 03/04/[address] [facility] [address] [place] [address] 03/04/[address] [place] [address] 03/05/[address] [place] [address] 03/09/[address] [place], [place] 04/16/[address] [facility] [address] [place] [address] 04/28/[address] [facility] [address] [place] [address] 05/31/[address] [facility] [address] [place] [address] 06/03/[address] [facility] [address] [place] [address] 06/21/[address] [place] [address] 06/28/[address] [facility] [address] [place] [address] 07/28/2024 CHRISTINA SELENA [address] [place] [address] 07/29/2024 CHRISTINA SELENA [address] [place] [address] 08/12/[address] [place] [address] 08/16/[address] [facility] [address] [place] [address] 08/16/[address] [facility] [address] [place] [address] 08/23/[address] [place] [address] 08/24/[address] [place] [address] 08/27/2024 JUMANA INFANTE ASSESSMENTS Encounter Date Diagnosis Assessment Notes Treatment Notes Treatment Clinical Notes Section Notes 03/02/2024 Type 2 diabetes mellitus with diabetic [...] log exercise and discussed fitness Apps like [employer] which can help keep log off calories [...] Dictation was accomplished with the use of [employer] voice recognition software, prone to medical misidentifications [...] log exercise and discussed fitness Apps like [employer] which can help keep log off calories [...] Dictation was accomplished with the use of [employer] voice recognition software, prone to medical misidentifications [...] Dictation was accomplished with the use of [employer] voice recognition software, prone to medical misidentifications [...] Dictation was accomplished with the use of [employer] voice recognition software, prone to medical misidentifications [...] Dictation was accomplished with the use of [employer] voice recognition software, prone to medical misidentifications [...] Dictation was accomplished with the use of [employer] voice recognition software, prone to medical misidentifications [...] log exercise and discussed fitness Apps like [employer] which can help keep log off calories [...] Dictation was accomplished with the use of [employer] voice recognition software, prone to medical misidentifications [...] log exercise and discussed fitness Apps like [employer] which can help keep log off calories [...] Dictation was accomplished with the use of [employer] voice recognition software, prone to medical misidentifications [...] next visit it any questions/concerns arise. 11/14/2023 Type 2 diabetes mellitus with diabetic [...] Dictation was accomplished with the use of [employer] voice recognition software, prone to medical misidentifications [...] Dictation was accomplished with the use of [employer] voice recognition software, prone to medical misidentifications [...] Dictation was accomplished with the use of [employer] voice recognition software, prone to medical misidentifications [...] log exercise and discussed fitness Apps like [employer] which can help keep log off calories [...] Dictation was accomplished with the use of [employer] voice recognition software, prone to medical misidentifications [...] Continue statin # CKD III. Baseline creaitnine . Followed by Dr. Deniz Kaba discussed with collaborating physician Doyle Infante who reviewed the assessment and plan. Chart, medications, labs, vital signs reviewed. Dictation was accomplished with the use of [employer] voice recognition software, prone to medical misidentifications [...] next visit it any questions/concerns arise. 05/31/2024 Bilateral low back pain, unspecified chronicity, [...] Continue statin # CKD III. Baseline creaitnine . Followed by Dr. Deniz Kaba discussed with collaborating physician Doyle Infante who reviewed the assessment and plan. Chart, medications, labs, vital signs reviewed. Dictation was accomplished with the use of [employer] voice recognition software, prone to medical misidentifications [...] with Coumadin clinic for INR adjustment 03/09/2024 Type 2 diabetes mellitus without complications [...] muscle relaxer Flexeril at night will follow-up 03/02/2024 Chronic anticoagulation (ICD-10 - Z79.01) # [...] log exercise and discussed fitness Apps like [employer] which can help keep log off calories [...] Dictation was accomplished with the use of [employer] voice recognition software, prone to medical misidentifications [...] log exercise and discussed fitness Apps like [employer] which can help keep log off calories [...] Dictation was accomplished with the use of [employer] voice recognition software, prone to medical misidentifications [...] relaxer Flexeril at night will follow-up 05/31/2024 ARGENIS on CPAP (ICD-10 - G47.33) [...] Dictation was accomplished with the use of [employer] voice recognition software, prone to medical misidentifications [...] next visit it any questions/concerns arise. 08/17/2024 ARGENIS on CPAP (ICD-10 - G47.33) [...] Dictation was accomplished with the use of [employer] voice recognition software, prone to medical misidentifications [...] ARGENIS on CPAP: Recently obtained new CPAP, estbean shows sleeping average 7.5 hours with < [...] log exercise and discussed fitness Apps like [employer] which can help keep log off calories [...] Dictation was accomplished with the use of [employer] voice recognition software, prone to medical misidentifications [...] Dictation was accomplished with the use of [employer] voice recognition software, prone to medical misidentifications [...] Dictation was accomplished with the use of [employer] voice recognition software, prone to medical misidentifications [...] log exercise and discussed fitness Apps like [employer] which can help keep log off calories [...] Dictation was accomplished with the use of [employer] voice recognition software, prone to medical misidentifications [...] III. Baseline creaitnine 1.. Followed by Dr. Guaman Case discussed with collaborating physician Doyle Infante who reviewed the assessment and plan. Chart, medications, labs, vital signs reviewed. Dictation was accomplished with the use of [employer] voice recognition software, prone to medical misidentifications [...] Dictation was accomplished with the use of [employer] voice recognition software, prone to medical misidentifications [...] log exercise and discussed fitness Apps like [employer] which can help keep log off calories [...] Dictation was accomplished with the use of [employer] voice recognition software, prone to medical misidentifications [...] log exercise and discussed fitness Apps like [employer] which can help keep log off calories [...] Dictation was accomplished with the use of [employer] voice recognition software, prone to medical misidentifications [...] Dictation was accomplished with the use of [employer] voice recognition software, prone to medical misidentifications [...] Dictation was accomplished with the use of [employer] voice recognition software, prone to medical misidentifications [...] log exercise and discussed fitness Apps like [employer] which can help keep log off calories [...] Dictation was accomplished with the use of [employer] voice recognition software, prone to medical misidentifications [...] Dictation was accomplished with the use of [employer] voice recognition software, prone to medical misidentifications [...] log exercise and discussed fitness Apps like [employer] which can help keep log off calories [...] Dictation was accomplished with the use of [employer] voice recognition software, prone to medical misidentifications [...] Dictation was accomplished with the use of [employer] voice recognition software, prone to medical misidentifications [...] Dictation was accomplished with the use of [employer] voice recognition software, prone to medical misidentifications [...] log exercise and discussed fitness Apps like [employer] which can help keep log off calories [...] Dictation was accomplished with the use of [employer] voice recognition software, prone to medical misidentifications [...] log exercise and discussed fitness Apps like [employer] which can help keep log off calories [...] Dictation was accomplished with the use of [employer] voice recognition software, prone to medical misidentifications [...] Dictation was accomplished with the use of [employer] voice recognition software, prone to medical misidentifications [...] Dictation was accomplished with the use of [employer] voice recognition software, prone to medical misidentifications [...] log exercise and discussed fitness Apps like [employer] which can help keep log off calories [...] Dictation was accomplished with the use of [employer] voice recognition software, prone to medical misidentifications [...] Dictation was accomplished with the use of [employer] voice recognition software, prone to medical misidentifications [...] Dictation was accomplished with the use of [employer] voice recognition software, prone to medical misidentifications [...] log exercise and discussed fitness Apps like [employer] which can help keep log off calories [...] Dictation was accomplished with the use of [employer] voice recognition software, prone to medical misidentifications [...] Dictation was accomplished with the use of [employer] voice recognition software, prone to medical misidentifications [...] Dictation was accomplished with the use of [employer] voice recognition software, prone to medical misidentifications [...] log exercise and discussed fitness Apps like [employer] which can help keep log off calories [...] Dictation was accomplished with the use of [employer] voice recognition software, prone to medical misidentifications [...] log exercise and discussed fitness Apps like [employer] which can help keep log off calories [...] Dictation was accomplished with the use of [employer] voice recognition software, prone to medical misidentifications [...] Dictation was accomplished with the use of [employer] voice recognition software, prone to medical misidentifications [...] log exercise and discussed fitness Apps like [employer] which can help keep log off calories [...] Dictation was accomplished with the use of [employer] voice recognition software, prone to medical misidentifications [...] Dictation was accomplished with the use of [employer] voice recognition software, prone to medical misidentifications [...] log exercise and discussed fitness Apps like [employer] which can help keep log off calories [...] Dictation was accomplished with the use of [employer] voice recognition software, prone to medical misidentifications [...] pain: Chronic problem, but overall stable # RAGENIS on CPAP: Recently obtained new CPAP, esteban [...] Dictation was accomplished with the use of [employer] voice recognition software, prone to medical misidentifications [...] Dictation was accomplished with the use of [employer] voice recognition software, prone to medical misidentifications [...] log exercise and discussed fitness Apps like [employer] which can help keep log off calories [...] Dictation was accomplished with the use of [employer] voice recognition software, prone to medical misidentifications [...] log exercise and discussed fitness Apps like [employer] which can help keep log off calories [...] Dictation was accomplished with the use of [employer] voice recognition software, prone to medical misidentifications [...] III. Baseline creaitnine 1.. Followed by Dr. Guaman Case discussed with collaborating physician Doyle Infante who reviewed the assessment and plan. Chart, medications, labs, vital signs reviewed. Dictation was accomplished with the use of [employer] voice recognition software, prone to medical misidentifications [...] log exercise and discussed fitness Apps like [employer] which can help keep log off calories [...] Dictation was accomplished with the use of [employer] voice recognition software, prone to medical misidentifications [...] log exercise and discussed fitness Apps like [employer] which can help keep log off calories [...] Dictation was accomplished with the use of [employer] voice recognition software, prone to medical misidentifications [...] log exercise and discussed fitness Apps like [employer] which can help keep log off calories [...] Dictation was accomplished with the use of [employer] voice recognition software, prone to medical misidentifications [...] log exercise and discussed fitness Apps like [employer] which can help keep log off calories [...] Dictation was accomplished with the use of [employer] voice recognition software, prone to medical misidentifications [...] AST (SGOT) 11/21/2021 CBC (COMPLETE BLOOD COUNT) 09/01/2018 CBC (COMPLETE BLOOD COUNT) 05/21/2021 CBC (COMPLETE BLOOD COUNT) 11/02/2019 CBC (COMPLETE BLOOD COUNT) 04/27/2019 CBC (COMPLETE BLOOD COUNT) 10/15/2021 CBC (COMPLETE BLOOD COUNT) 06/02/2020 COMPREHENSIVE METABOLIC PANEL 06/02/2020 COMPREHENSIVE METABOLIC PANEL 09/01/2018 COMPREHENSIVE METABOLIC PANEL 10/15/2021 COMPREHENSIVE METABOLIC PANEL 04/27/2019 COMPREHENSIVE METABOLIC PANEL 11/02/2019 COMPREHENSIVE METABOLIC PANEL 05/21/2021 HEMOGLOBIN A1C 05/21/2021 HEMOGLOBIN A1C 11/02/2019 HEMOGLOBIN A1C 04/27/2019 HEMOGLOBIN A1C 10/27/2017 HEMOGLOBIN A1C 10/15/2021 HEMOGLOBIN A1C 11/26/2022 HEMOGLOBIN A1C 06/02/2020 LIPID PANEL 06/02/2020 LIPID PANEL 10/15/2021 LIPID PANEL 04/27/2019 LIPID PANEL 11/02/2019 LIPID PANEL 05/21/2021 LIPID PANEL 09/01/2018 PSA, SCREEN 10/15/2021 TSH 10/15/2021 URINALYSIS, COMPLETE 06/02/2020 URINALYSIS, COMPLETE 09/01/2018 URINALYSIS, COMPLETE 11/02/2019 URINALYSIS, COMPLETE 04/27/2019 AST/SGOT 11/21/2021 US Extrem Non-Vascular RT 05/15/2023 [...] WALTERS, 11/18/2024 11:30:00 AM, [address], [place], [address], Insurance Providers Payer Name Payer Address Payer Phone Subscriber Number Group Number Insured Name Patient Relationship to Insured Coverage Start Date Coverage End Date Medicare Part B J [address] [place] [address] [id number] IRVIN SUAZO Self - patient is the insured [employer] [address] [place] [address] [id number] IRVIN SUAZO Self - patient is the [...]
[2024-09-14 10:28] LABS: Prothrombin Time Whole Bld POC 42.2 sec (11.1-13.5); ~PT, ~INR - Anti Coag Clinic 3.5 (0.9-1.1)
--- NOTE | 2024-09-14 10:34 | MHC.OFFVISCO ---
Intake Intake Visit Reasons: Anticoagulation Allergies lovenox Allergy (Severe, Uncoded 09/14/24 10:22) bleeding morphine Allergy (Severe, Uncoded 09/14/24 10:22) Rash kepra Adverse Reaction (Severe, Uncoded 09/14/24 10:22) Drowsy Medication List - Last Reconciled 09/14/24 by Deepika Payne RN amoxicillin 2,000 mg PO ONCE PRN azathioprine 150 mg PO DAILY calcium carbonate-vitamin D3 600 mg-10 mcg (400 unit) caps PO DAILY cholecalciferol (vitamin D3) 25 mcg PO DAILY finasteride 5 mg PO DAILY gabapentin 600 mg PO BID metoprolol tartrate 12.5 mg PO BID multivitamin 1 tab PO DAILY nitrofurantoin macrocrystal 100 mg PO .qod omega 5-djr-tfr-fish oil 1,000 (120-180) mg (Fish Oil) 1 cap PO BID simvastatin 40 mg PO BEDTIME tamsulosin 0.4 mg PO BEDTIME triamcinolone acetonide 0.1% 1 appl topical DAILY PRN warfarin 2.5 mg See Protocol PO DAILY Nursing Note INR: 3.5 in therapeutic range of 2.5-3.5 Medications and supplements reviewed No changes in health, diet, medications, or supplements, Denies any signs and symptoms of bleeding or bruising or clotting. Bleeding, bruising, clotting discussed Nutritional guidance given Dose: 7.5mg X 3 days and 5mg X 4 days F/U INR: 3 weeks Patient verbalizes understanding of instructions given Anti-Coag Initial Assessment Social Hx Patient Tobacco Use Status: Never used Tobacco alcohol intake: current Alcohol intake frequency: holidays/special occasions only Cardiovascular Hx: HTN Lung Disease HX: DVT/PE and Other Endocrine Hx: Diabetes and Autoimmune disorders Blood Disorder Hx: Hyperlipidemia and Hepatitis Hx: Kidney Disease and Prostate Neurological Hx: Epilepsy/Seizures and Stroke/TIA Cancer HX: No Psych. 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
== END 2024-09-14 10:36 | disposition home or self-care (01) ==
LOC: HO.ACS 10:12
PROVIDERS: PCP Physician Assistant Medical; Visit Provider Internal Medicine
DX: Z79.01 Long term (current) use of anticoagulants (principal)

== ENCOUNTER → 2024-09-14 10:12 | Outpatient (BNVA) | payer MEDICARE, SELFPAY | PROVIDERS: PCP Physician Assistant Medical; Visit Provider Internal Medicine | DX: I26.99 Other pulmonary embolism without acute cor pulmonale (principal); Z79.01 Long term (current) use of anticoagulants; Z51.81 Encounter for therapeutic drug level monitoring | CPT/HCPCS: 85610; 99211 ==

== ENCOUNTER 2024-10-05 10:59 | Outpatient (AMB) | payer MEDICARE, SELFPAY ==
[2024-10-05 11:09] LABS: Prothrombin Time Whole Bld POC 40.1 sec (11.1-13.5); ~PT, ~INR - Anti Coag Clinic 3.3 (0.9-1.1)
--- NOTE | 2024-10-05 11:12 | MHC.OFFVISCO ---
Intake Intake Visit Reasons: Anticoagulation Allergies lovenox Allergy (Severe, Uncoded 10/05/24 11:03) bleeding morphine Allergy (Severe, Uncoded 10/05/24 11:03) Rash kepra Adverse Reaction (Severe, Uncoded 10/05/24 11:03) Drowsy Medication List - Last Reconciled 10/05/24 by Deepika Peguero RN amoxicillin 2,000 mg PO ONCE PRN azathioprine 150 mg PO DAILY calcium carbonate-vitamin D3 600 mg-10 mcg (400 unit) caps PO DAILY cholecalciferol (vitamin D3) 25 mcg PO DAILY finasteride 5 mg PO DAILY gabapentin 600 mg PO BID metoprolol tartrate 12.5 mg PO BID multivitamin 1 tab PO DAILY nitrofurantoin macrocrystal 100 mg PO .qod omega 1-lnv-otl-fish oil 1,000 (120-180) mg (Fish Oil) 1 cap PO BID simvastatin 40 mg PO BEDTIME tamsulosin 0.4 mg PO BEDTIME triamcinolone acetonide 0.1% 1 appl topical DAILY PRN warfarin 2.5 mg See Protocol PO DAILY Nursing Note Amb to [facility] feeling tired , sts he is having an issue with his CPAP, something with the heater sts he has an appointment this afternoon to have it checked. Medications and supplements reviewed No changes in health, diet, medications, or supplements, Denies any signs and symptoms of bleeding, bruising, or clotting. Bleeding, bruising, clotting discussed INR: 3.3 in therapeutic range (2.5-3.5) Dose: continue usual dosing 7.5mg x 3 days and 5mg x 4 days balance greens and reds in diet andbe consistent F/U INR: 3 weeks Patient verbalizes understanding of instructions given Anti-Coag Initial Assessment Social Hx Patient Tobacco Use Status: Never used Tobacco alcohol intake: current Alcohol intake frequency: holidays/special occasions only Cardiovascular Hx: HTN Lung Disease HX: DVT/PE and Other Endocrine Hx: Diabetes and Autoimmune disorders Blood Disorder Hx: Hyperlipidemia and Hepatitis Hx: Kidney Disease and Prostate Neurological Hx: Epilepsy/Seizures and Stroke/TIA Cancer HX: No Psych. Illness/Depression: No Coding Level of Care Code Est Patient Level 1 Diagnoses Current use of anticoagulant therapy Z79.01 Time Spent (min) 15 Assessment & Plan Assessment & Plan (1) Current use of anticoagulant therapy: Code(s): Z79.01 - emt intermediate (current) use of anticoagulants Category: Medical
--- OUTSIDE RECORDS SUMMARY | 2024-10-05 13:04 | XMS_ITS ---
Author Organization [facility] Address [address] [place] [address] Care Team Providers Care Correctional Classification Counselor Name Role Phone HERNANDEZJUMANA Primary Care Provider [phone] CHRISTINA WALTERS [phone] MEDICATIONS Medication SIG (Take, Route, Frequency, Duration) Notes Start Date End Date Status Lancets 30G - check twice a day dx e11.9 for 30 days 08/23/2024 Active Encounters Encounter Location Date Provider Diagnosis [facility] [address] [place] [address] 08/23/2024 CHRISTINA WALTERS PLAN OF TREATMENT Medication Medication Name Sig Start Date Stop Date Notes Lancets 30G - check twice a day dx e11.9 for 30 days 08/23 Next Appt Details Provider Name:CHRISTINA WALTERS, 11/18/2024 11:30:00 AM, [address] , [place], [address], Progress Notes * IRVIN SUAZODOB:[birth year] (79 yo M)Acc No.[id number]:08/23/2024 Patient:??IRVIN SUAZO PIPPA ID :[id number]?Age:79 Y?Sex:Meliza de león Address:[address] [place] [address] * Refills?? Start Lancets 30G Miscellaneous, -, 100, check twice a day dx e11.9, 30 days, Refills=11 * true * Date:??
--- OUTSIDE RECORDS SUMMARY | 2024-10-05 13:04 | XMS_ITS ---
Author Organization [facility] Address [address] [place] [address] Care Team Providers Care Energy Efficiency Finance Manager Name Role Phone JUMANA HERNANDEZ Primary Care Provider [phone] CHRISTINA WALTERS Unavailable [phone] REASON FOR VISIT FYI and TY message Encounters Encounter Location Date Provider Diagnosis [facility] [address] [facility] [address] [place] [address] 08/24/2024 JUMANA HERNANDEZ PLAN OF TREATMENT Next Appt Details Provider Name:CHRISTINA WALTERS, 11/18/2024 11:30:00 AM, [address], [place], [address], Progress Notes * IRVIN SUAZODOB:[birth year] (79 yo M)Acc No.[id number]:08/24/2024 Patient:??IRVIN SUAZO PIPPA ID :[id number]?Age:79 Y?Sex:Meliza sarthak Address:[address] [place] [address] * true * Date:??
--- OUTSIDE RECORDS SUMMARY | 2024-10-05 13:04 | XMS_ITS | Patient Health Record ---
Author Organization [employer] [facility] Address [address] [place] [address] Care Team Providers Care Credit Collections Rep Name Role Phone INFANTEJUMANA Primary Care Provider [phone] CHRISTINA WALTERS [phone] ALLERGIES Allergen (clinical drug ingredient) Drug/Non Drug Allergy documented on EMR Reaction Allergy Type Onset Date Status morphine morphine (uncoded) Unknown Allergy A ctive enoxaparin Lovenox BLEEDS Drug Allergy Active RESULTS Component Value Reference Range Notes URINALYSIS Reviewed date:01/26/2024 12:40:02 PM Interpretation: Performing Lab: Notes/Report: Note Original Ordering Provider: CHRISTINA WALTERS PA-C (EMERY) [employer], [place] [address] Admissions Consultant - Dora Marin MD GLUCOSE, (UA) NEGATIVE NEGATIVE mg/dL BILIRUBIN, URINE NEGATIVE NEGATIVE KETONE, URINE NEGATIVE NEGATIVE mg/dL SPECIFIC GRAVITY, URINE 1.015 1.003-1.030 BLOOD, URINE SMALL NEGATIVE PH, URINE 7.0 5.0-8.0 PROTEIN, URINE 100 <= TRACE mg/dl UROBILINOGEN, URINE 0.2 0.2-1.0 E.U./dL NITRITE, URINE POSITIVE NEGATIVE LEUKOCYTE ESTERASE, URINE LARGE NEGATIVE Note Original Ordering Provider: CHRISTINA WALTERS PA-C (EMERY) [employer], a member of [address] [address] Admissions Consultant - Dora Marin MD GLYCOHEMOGLOBIN PROFILE Reviewed [...] Original Ordering Provider: CHRISTINA WALTERS PA-C (EMERY) [employer], [place] [address] Admissions Consultant - Dora Marin MD GLUCOSE [phone] [...] Original Ordering Provider: CHRISTINA WALTERS PA-C (EMERY) [employer], [place] [address] Admissions Consultant - Dora Marin MD COMPREHENSIVE METABOLIC PANE [...] Notes/Report: Original Ordering Provider: CHRISTINA MALDONADO (EMERY)[facility] VITAMIN D 25 HYDROXY Reviewed date:07/27/2024 [...] Creatinine, Urine 105.0 REASON FOR REFERRAL Reason [facility] administrator ea pt was seen in 2019 and prescribed c pap machine - machine fan broke needs new one has seizures when he does not use machine Diagnosis 1 Obstructive sleep ap narciso (G47.33) Diagnosis 2 ARGENIS on CPAP (G47.33) Referral Organization [facility] Referring Provider First Name CHRISTINA Referring Provider Last Name SELENA Referring Provider Speciality Internal edicine Referred Provider Specialty Sleep Medici ne Clinical Notes brissa willett 0 10/14/2023 01:33:52 PM > faxed to [facility] [phone], brissa willett 11/25/2023 09:49:04 AM >spoke with pt he got new machine Referral Priority Routine Reason x ray shows degenera tive changes and large osteophyte Diagnosis 1 Back pain, unspecifi ed back location, unspecified back pain laterality, unspecified chronicity (M54.9) Diagnosis 2 Bilateral low back p ain, unspecified chronicity, unspecified whether sciatica present (M54.50) Referral Organization [facility] Referring Provider First Name CHRISTINA Referring Provider Last Name SELENA Referring Provider Speciality Internal edicine Referred Provider Specialty Physical The rapist Clinical Notes brissa willett 0 03/04/2024 09:42:00 AM >faxed to RENE johnson phone # [phone] and fax # [phone] pt aware to call and gael Referral [...] 500-1000-40 MG-[employer] Orally Active OneTouch Delica Plus [id number] - DIRECTED TO TEST BLOOD GLUCOSE LEVELS [...] confirmed Anemi a in chronic kidney disease (839306674) Problem Type 2 diabetes mellitus with diabetic chronic kidney disease (E11.22) Active confirmed Diabetic renal disease (601051354) Problem Type 2 diabetes mellitus with hyperglycemia (E11.65) Active confirmed Hyper glycemia due to type 2 diabetes mellitus (196817512006980 ) Problem Type 2 diabetes mellitus with unspecified complications (E11.8) Active confirmed Disord er due to type 2 diabetes mellitus (473544819) Problem Type 2 diabetes mellitus without complications (E11.9) Active confirmed Type I I diabetes mellitus without complication (458086685) Problem Vitamin D deficiency , unspecified (E55.9) Active confirmed 73397596 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 668421645 Problem Hyperlipidemia, unspecified (E78.5) Active confirmed Hyperlip idemia (40300376) Problem Essential (primary) hypertension (I10) Active confirmed Essential hypertension (33099138) Problem Cerebral infarction, unspecified (I63.9) Active confirmed Cerebral infarction (130863254) Problem Autoimmune hepatitis (K75.4) Active confirmed 118138702 Problem Chronic kidney disease, stage 3 (moderate) (N18.3) Active confirmed Chronic k idney disease stage 3 (disorder) (492728992) 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) Active confirmed Long-term current use of anticoagulant (115268226) Problem Benign prostatic hyperplasia without lower urinary tract symptoms (N40.0) Active confirmed Benign pros tatic hypertrophy without outflow obstruction (771086757) Problem Back pain, unspecifi ed back location, unspecified back pain laterality, unspecified chronicity (M54.9) Active confirmed 909726432 Problem Adult general medica l exam (Z00.00) Active confirmed Adult health examination (934156335) Problem Hypothyroidism, unspecified type (E03.9) Active confirmed Hypothyroidism (58115490) Problem Annual physical exam (Z00.00) Active confirmed 504264138 Problem Vitamin D deficiency (E55.9) Active confirmed Vitamin D deficiency (04518849) Problem Chronic anticoagulation (Z79.01) Active confirmed Use of anticoagulation (580387432) Problem Obesity (BMI 30-39.9 ) (E66.9) Active confirmed Obesity (548227224) Problem Type 2 diabetes mellitus without complication, unspecified whether snf insulin use (E11.9) Active confirmed 571310194 Problem Chronic kidney disease, stage 3b (N18.32) Active confirmed Chronic kidney disease stage 3B (disorder) (543155023) Problem Obstructive sleep apnea (G47.33) Active confirmed Obstructive sleep apnea (54470836) Problem Prostate cancer screening (Z12.5) Active confirmed Screening for malignant neoplasm of prostate (517792965) Problem 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, 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) Active confirmed Vitamin B>12< deficiency anaemia (62320724) Problem BMI 34.0-34.9,adult (Z68.34) Active confirmed 963315533 Problem Degenerative disc disease, lumbar (M51.36) Active confirmed Degeneration of lumbar intervertebral disc (73106627) Problem BPH loc w/o ur obs/LUTS (N40.0) Active confirmed Benign pros tatic hypertrophy without outflow obstruction (576205462) Problem Transaminitis (R74.01) Active confirmed 724818449 Problem Bilateral low back pain, unspecified chronicity, unspecified whether sciatica present (M54.50) Active confirmed 730015859 Problem Aortic valve disease (I35.9) Active confirmed Aortic valve disease (0879827) Problem Aortic valve replace d (Z95.2) Active confirmed History of hear t valve repair with prosthesis (977735983895646 ) Problem Diabetes mellitus ty pe 2 in nonobese (E11.9) Active confirmed Diabet es mellitus type 2 in nonobese (074411051) Problem ARGENIS on CPAP (G47.33) Active confirmed O bstructive sleep apnea syndrome (43402572) VITAL SIGNS Heart Rate 70 /min 08/17/2024 Oximetry 96 % 08/17/2024 Blood pressure diastolic 90 mm Hg 08/17/2024 Height 66 in 08/17/2024 Blood pressure systolic 118 mm Hg 08/17/2024 Weight 207.8 lbs 08/17/2024 BMI 33.54 kg/m2 08/17/2024 Encounters Encounter Location Date Provider Diagnosis [facility] [address] [place] [address] 07/01/2024 CHRISTINA WALTERS [facility] [address] [place] [address] 11/14/2023 CHRISTINA WALTERS Chronic anticoagulat ion Z79.01 [...] deficiency E55.9 and Aortic valve replaced Z95.2 [facility] [address] [place] [address] 02/19/2024 CHRISTINA WALTERS Type 2 diabetes phuong [...] care planning Z71.89 and BMI 34.0-34.9,adult Z68.34 [facility] [address] [place] [address] 03/02/2024 CHRISTINA WALTERS Type 2 diabetes phuong [...] unspecified back pain laterality, unspecified chronicity M54.9 [place] [address] [address] 03/09/2024 TALAL INFANTE Back pain, unspecifi ed back location, unspecified back pain laterality, unspecified chronicity M54.9 ; Hyperlipidemia, unspecified E78.5 ; Type 2 diabetes mellitus without complications E11.9 and Cerebral infarction, unspecified I63.9 [place] [address] 04/06/2024 TALAL INFANTE Hyperlipidemia, unspecified E78.5 ; Cerebral infarction, unspecified I63.9 ; Benign prostatic hyperplasia without lower urinary tract symptoms N40.0 ; Bilateral low back pain, unspecified chronicity, unspecified whether sciatica present M54.50 and Essential (primary) hypertension I10 [facility] [address] [place] [address] 05/31/2024 CHRISTINA WALTERS Type 2 diabetes phuong [...] (BMI 30-39.9) E66.9 and BMI 34.0-34.9,adult Z68.34 [facility] [address] [place] [address] 08/17/2024 CHRISTINA WALTERS Type 2 diabetes phuong [...] [address] [place] [address] 10/14/2023 JUMANA INFANTE [address] [place] [address] 10/14/2023 CHRISTINA MICHAELA [address] [place] [address] 11/07/2023 CHRISTINA MICHAELA [address] [place] [address] 01/26/2024 CHRISTINA SELENA [address] [place] [address] 02/04/[address] [facility] [address] [place] [address] 03/01/[address] [place] [address] 03/03/2024 CHRISTINA MICHAELA [address] [place] [address] 03/04/[address] [facility] [facility] [address] [place] [address] 03/04/[address] [facility] [address] [place] [address] 03/04/[address] [place] [address] 03/05/[address] [place] [address] 03/09/[address] [place] [address] 04/16/[address] [facility] [address] [place] [address] 04/28/[address] [facility] [address] [place] [address] 05/31/[address] [facility] [address] [place] [address] 06/03/[address] [facility] [address] [place] [address] 06/21/[address] [place] [address] 06/28/[address] [facility] [address] [place] [address] 07/28/2024 CHRISTINA SELENA [address] [place] [address] 07/29/2024 CHRISTINA SELENA [address] [place] [address] 08/12/[address] [place] [address] 08/16/[address] [facility] [address] [place] [address] 08/16/[address] [facility] [address] [place] [address] 08/23/[address] [place] [address] 08/24/[address] [place] [address] 08/27/2024 JUMANA INFANTE ASSESSMENTS Encounter Date Diagnosis [...] statin Case discussed with collaborating physician Doyle nIfante who reviewed the assessment and plan. Chart, [...] Dictation was accomplished with the use of [employer] voice recognition software, prone to medical misidentifications [...] log exercise and discussed fitness Apps like zintin which can help keep log off calories [...] Dictation was accomplished with the use of [employer] voice recognition software, prone to medical misidentifications [...] pain: Chronic problem, but overall stable # ARGEINS on CPAP: Recently obtained new CPAP, esteban [...] log exercise and discussed fitness Apps like zintin which can help keep log off calories [...] Dictation was accomplished with the use of [employer] voice recognition software, prone to medical misidentifications [...] log exercise and discussed fitness Apps like zintin which can help keep log off calories [...] Dictation was accomplished with the use of [employer] voice recognition software, prone to medical misidentifications [...] log exercise and discussed fitness Apps like zintin which can help keep log off calories [...] Dictation was accomplished with the use of [employer] voice recognition software, prone to medical misidentifications [...] follow-up with Coumadin clinic for INR adjustment 08/17/2024 Type 2 diabetes mellitus with diabetic [...] Dictation was accomplished with the use of [employer] voice recognition software, prone to medical misidentifications [...] Dictation was accomplished with the use of [employer] voice recognition software, prone to medical misidentifications [...] next visit it any questions/concerns arise. 05/31/2024 Type 2 diabetes mellitus with diabetic [...] Dictation was accomplished with the use of [employer] voice recognition software, prone to medical misidentifications [...] Dictation was accomplished with the use of [employer] voice recognition software, prone to medical misidentifications [...] Dictation was accomplished with the use of [employer] voice recognition software, prone to medical misidentifications [...] Dictation was accomplished with the use of [employer] voice recognition software, prone to medical misidentifications [...] log exercise and discussed fitness Apps like zintin which can help keep log off calories [...] Dictation was accomplished with the use of [employer] voice recognition software, prone to medical misidentifications [...] log exercise and discussed fitness Apps like zintin which can help keep log off calories [...] Dictation was accomplished with the use of [employer] voice recognition software, prone to medical misidentifications [...] Dictation was accomplished with the use of [employer] voice recognition software, prone to medical misidentifications [...] Dictation was accomplished with the use of [employer] voice recognition software, prone to medical misidentifications [...] log exercise and discussed fitness Apps like zintin which can help keep log off calories [...] Dictation was accomplished with the use of [employer] voice recognition software, prone to medical misidentifications [...] log exercise and discussed fitness Apps like zintin which can help keep log off calories [...] Dictation was accomplished with the use of [employer] voice recognition software, prone to medical misidentifications [...] next visit it any questions/concerns arise. 03/09/2024 Cerebral infarction, unspecified (ICD-10 - I63.9) [...] relaxer Flexeril at night will follow-up 04/06/2024 Bilateral low back pain, unspecified chronicity, [...] follow-up with Coumadin clinic for INR adjustment 08/17/2024 ARGENIS on CPAP (ICD-10 - G47.33) [...] Dictation was accomplished with the use of [employer] voice recognition software, prone to medical misidentifications [...] Dictation was accomplished with the use of [employer] voice recognition software, prone to medical misidentifications [...] Dictation was accomplished with the use of [employer] voice recognition software, prone to medical misidentifications [...] Dictation was accomplished with the use of [employer] voice recognition software, prone to medical misidentifications [...] log exercise and discussed fitness Apps like zintin which can help keep log off calories [...] Dictation was accomplished with the use of [employer] voice recognition software, prone to medical misidentifications [...] log exercise and discussed fitness Apps like zintin which can help keep log off calories [...] Dictation was accomplished with the use of [employer] voice recognition software, prone to medical misidentifications [...] Dictation was accomplished with the use of [employer] voice recognition software, prone to medical misidentifications [...] Dictation was accomplished with the use of [employer] voice recognition software, prone to medical misidentifications [...] log exercise and discussed fitness Apps like zintin which can help keep log off calories [...] Dictation was accomplished with the use of [employer] voice recognition software, prone to medical misidentifications [...] log exercise and discussed fitness Apps like zintin which can help keep log off calories [...] Dictation was accomplished with the use of [employer] voice recognition software, prone to medical misidentifications [...] follow-up with Coumadin clinic for INR adjustment 08/17/2024 Anemia due to vitamin B12 deficiency, [...] Dictation was accomplished with the use of [employer] voice recognition software, prone to medical misidentifications [...] next visit it any questions/concerns arise. 05/31/2024 Hyperlipidemia, unspecified (ICD-10 - E78.5) # [...] Dictation was accomplished with the use of [employer] voice recognition software, prone to medical misidentifications [...] Dictation was accomplished with the use of [employer] voice recognition software, prone to medical misidentifications [...] log exercise and discussed fitness Apps like zintin which can help keep log off calories [...] log exercise and discussed fitness Apps like zintin which can help keep log off calories [...] Dictation was accomplished with the use of [employer] voice recognition software, prone to medical misidentifications [...] Dictation was accomplished with the use of [employer] voice recognition software, prone to medical misidentifications [...] Dictation was accomplished with the use of [employer] voice recognition software, prone to medical misidentifications [...] log exercise and discussed fitness Apps like zintin which can help keep log off calories [...] Dictation was accomplished with the use of [employer] voice recognition software, prone to medical misidentifications [...] log exercise and discussed fitness Apps like zintin which can help keep log off calories [...] Dictation was accomplished with the use of [employer] voice recognition software, prone to medical misidentifications [...] Dictation was accomplished with the use of [employer] voice recognition software, prone to medical misidentifications [...] Dictation was accomplished with the use of [employer] voice recognition software, prone to medical misidentifications [...] Dictation was accomplished with the use of [employer] voice recognition software, prone to medical misidentifications [...] Dictation was accomplished with the use of [employer] voice recognition software, prone to medical misidentifications [...] log exercise and discussed fitness Apps like zintin which can help keep log off calories [...] Dictation was accomplished with the use of [employer] voice recognition software, prone to medical misidentifications [...] log exercise and discussed fitness Apps like zintin which can help keep log off calories [...] Dictation was accomplished with the use of [employer] voice recognition software, prone to medical misidentifications [...] Dictation was accomplished with the use of [employer] voice recognition software, prone to medical misidentifications [...] Dictation was accomplished with the use of [employer] voice recognition software, prone to medical misidentifications [...] log exercise and discussed fitness Apps like zintin which can help keep log off calories [...] Dictation was accomplished with the use of [employer] voice recognition software, prone to medical misidentifications [...] Dictation was accomplished with the use of [employer] voice recognition software, prone to medical misidentifications [...] log exercise and discussed fitness Apps like zintin which can help keep log off calories [...] Dictation was accomplished with the use of [employer] voice recognition software, prone to medical misidentifications [...] Dictation was accomplished with the use of [employer] voice recognition software, prone to medical misidentifications [...] Dictation was accomplished with the use of [employer] voice recognition software, prone to medical misidentifications [...] Dictation was accomplished with the use of [employer] voice recognition software, prone to medical misidentifications [...] log exercise and discussed fitness Apps like zintin which can help keep log off calories [...] Dictation was accomplished with the use of [employer] voice recognition software, prone to medical misidentifications [...] log exercise and discussed fitness Apps like zintin which can help keep log off calories [...] Dictation was accomplished with the use of [employer] voice recognition software, prone to medical misidentifications [...] log exercise and discussed fitness Apps like zintin which can help keep log off calories [...] Dictation was accomplished with the use of [employer] voice recognition software, prone to medical misidentifications [...] log exercise and discussed fitness Apps like zintin which can help keep log off calories [...] Dictation was accomplished with the use of [employer] voice recognition software, prone to medical misidentifications [...] Dictation was accomplished with the use of [employer] voice recognition software, prone to medical misidentifications [...] log exercise and discussed fitness Apps like zintin which can help keep log off calories [...] Dictation was accomplished with the use of [employer] voice recognition software, prone to medical misidentifications [...] log exercise and discussed fitness Apps like zintin which can help keep log off calories [...] Dictation was accomplished with the use of [employer] voice recognition software, prone to medical misidentifications [...] log exercise and discussed fitness Apps like zintin which can help keep log off calories [...] Dictation was accomplished with the use of [employer] voice recognition software, prone to medical misidentifications [...] BLOOD COUNT) 10/15/2021 CBC (COMPLETE BLOOD COUNT) 11/02/2019 CBC (COMPLETE BLOOD COUNT) 09/01/2018 CBC (COMPLETE BLOOD COUNT) 06/02/2020 CBC (COMPLETE BLOOD COUNT) 05/21/2021 CBC (COMPLETE BLOOD COUNT) 04/27/2019 COMPREHENSIVE METABOLIC PANEL 05/21/2021 COMPREHENSIVE METABOLIC PANEL 04/27/2019 COMPREHENSIVE METABOLIC PANEL 09/01/2018 COMPREHENSIVE METABOLIC PANEL 06/02/2020 COMPREHENSIVE METABOLIC PANEL 11/02/2019 COMPREHENSIVE METABOLIC PANEL 10/15/2021 HEMOGLOBIN A1C 10/15/2021 HEMOGLOBIN A1C 11/26/2022 HEMOGLOBIN A1C 11/02/2019 HEMOGLOBIN A1C 10/27/2017 HEMOGLOBIN A1C 06/02/2020 HEMOGLOBIN A1C 05/21/2021 HEMOGLOBIN A1C 04/27/2019 LIPID PANEL 04/27/2019 LIPID PANEL 05/21/2021 LIPID PANEL 06/02/2020 LIPID PANEL 11/02/2019 LIPID PANEL 09/01/2018 LIPID PANEL 10/15/2021 PSA, SCREEN 10/15/2021 TSH 10/15/2021 URINALYSIS, COMPLETE 09/01/2018 URINALYSIS, COMPLETE 11/02/2019 URINALYSIS, COMPLETE 06/02/2020 URINALYSIS, COMPLETE 04/27/2019 AST/SGOT 11/21/2021 US Extrem Non-Vascular RT 05/15/2023 PT/INR 04/27/2019 LIPID PANEL, STANDARD 11/14/2023 LIPID PANEL, STANDARD 04/06/2024 HEPATITIS PANEL, ACUTE W/REFLEX TO CONFI RMATION 11/21/2021 COMPREHENSIVE METABOLIC PANEL 11/14/2023 COMPREHENSIVE METABOLIC PANEL 02/19/2024 COMPREHENSIVE METABOLIC PANEL 04/06/2024 CBC (INCLUDES DIFF/PLT) 04/06/2024 CBC (INCLUDES DIFF/PLT) 02/19/2024 CBC (INCLUDES DIFF/PLT) 11/14/2023 URINALYSIS, COMPLETE 11/14/2023 HEMOGLOBIN A1c 11/14/2023 HEMOGLOBIN A1c 02/19/2024 VITAMIN B12 11/14/2023 PSA (FREE AND TOTAL) [...] WALTERS, 11/18/2024 11:30:00 AM, [address], [place], [address], Insurance Providers Payer Name Payer Address Payer Phone Subscriber Number Group Number Insured Name Patient Relationship to Insured Coverage Start Date Coverage End Date Medicare Part B J [address] [place] [address] [phone] [id number] IRVIN SUAZO Self - patient is the insured [employer] [address] [place] [address] [phone] [id number] IRVIN SUAZO Self - patient is the [...]
== END 2024-10-05 11:25 | disposition home or self-care (01) ==
LOC: HO.ACS 10:59
PROVIDERS: PCP Physician Assistant Medical; Visit Provider Internal Medicine
DX: Z79.01 Long term (current) use of anticoagulants (principal)

== ENCOUNTER → 2024-10-05 10:59 | Outpatient (BNVA) | payer MEDICARE, SELFPAY | PROVIDERS: PCP Physician Assistant Medical; Visit Provider Internal Medicine | DX: I26.99 Other pulmonary embolism without acute cor pulmonale (principal); Z79.01 Long term (current) use of anticoagulants; Z51.81 Encounter for therapeutic drug level monitoring | CPT/HCPCS: 85610; 99211 ==

== ENCOUNTER 2024-10-26 11:00 | Outpatient (AMB) | payer MEDICARE, SELFPAY ==
--- NOTE | 2024-10-26 11:14 | MHC.OFFVISCO ---
Intake Intake Visit Reasons: Anticoagulation Allergies lovenox Allergy (Severe, Uncoded 10/26/24 11:08) bleeding morphine Allergy (Severe, Uncoded 10/26/24 11:08) Rash kepra Adverse Reaction (Severe, Uncoded 10/26/24 11:08) Drowsy Medication List - Last Reconciled 10/26/24 by Soo Ho RN amoxicillin 2,000 mg PO ONCE PRN azathioprine 150 mg PO DAILY calcium carbonate-vitamin D3 600 mg-10 mcg (400 unit) caps PO DAILY cholecalciferol (vitamin D3) 25 mcg PO DAILY finasteride 5 mg PO DAILY gabapentin 600 mg PO BID metoprolol tartrate 12.5 mg PO BID multivitamin 1 tab PO DAILY nitrofurantoin macrocrystal 100 mg PO .qod omega [id number]-ugt-zbp-fish oil 1,000 (120-180) mg (Fish Oil) 1 cap PO BID simvastatin 40 mg PO BEDTIME tamsulosin 0.4 mg PO BEDTIME triamcinolone acetonide 0.1% 1 appl topical DAILY PRN warfarin 2.5 mg See Protocol PO DAILY Nursing Note INR received from [facility] INR?? 3.2- in therapeutic range of 2.5- 3.5 Keep same dose -5mg x 4, 7.5mg x 3 No changes indicated per patient assessment questionnaire No changes in health, diet, supplements or meds No signs and symptoms of bleeding or bruising or clotting Retest 4 weeks Anti-Coag Initial Assessment Social Hx Patient Tobacco Use Status: Never used Tobacco alcohol intake: current Alcohol intake frequency: holidays/special occasions only Cardiovascular Hx: HTN Lung Disease HX: DVT/PE and Other Endocrine Hx: Diabetes and Autoimmune disorders Blood Disorder Hx: Hyperlipidemia and Hepatitis Hx: Kidney Disease and Prostate Neurological Hx: Epilepsy/Seizures and Stroke/TIA Cancer HX: No Psych. 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
[2024-10-26 11:15] LABS: Prothrombin Time Whole Bld POC 38.7 sec (11.1-13.5); ~PT, ~INR - Anti Coag Clinic 3.2 (0.9-1.1)
--- OUTSIDE RECORDS SUMMARY | 2024-10-26 11:56 | XMS_ITS | Encounter Summary ---
Author Organization [facility] Address [address] [place] [address] Care Team Providers Care Freight Air Brake Fitter Name Role Phone Osito Infante MD Primary Care Provider [phone] Reason for Visit * Reason Onset Date Comments Provider Call Back 10/13/2024 Encounter Details Date Type Department Care Team (Late st Contact Info) Description 10/13/2024 Telephone Gastroenterology - [place] [address] [facility] [address] [place] [address] Henry Morris MD [address] [place] [address] Provider Call Back Social History Tobacco Use Types Packs/Day Years Used Date Smoking Tobacco: Never Smokeless Tobacco: Never Alcohol Use Standard Drinks/Week Comments Yes 0 (1 standard drink = 0.6 oz pur e alcohol) Sex and Gender Information Value Date Recorded Sex Assigned at Not on file Gender Identity Not on file Sexual Orientation Not on file Job Start Date Occupation Industry Not on file Not on file Not on file documented as of this encounter Progress Notes * Nanci Veras MA - 10/14/2024 1:26 PM EST Patient aware labs are ordered and will have them done 1 week prior to appt on 10/27/24. Dorothy * ERICA Islas - 10/14/2024 1:14 PM EST done * Nanci Veras MA - 10/14/2024 1:05 PM EST [place], Please auth these orders that patient has done prior to office visits with Dr Morris. Thanks! Dorothy ABEL, Open encounter so you can see the orders and authorize. :) * Bhargavi Villareal - 10/13/2024 2:10 PM EST Patient calling has appointment with Dr Morris 10/27/2024 and would like to know if he will need labwork prior to appt documented in this encounter Plan of Treatment Upcoming Encounters Date Type Department Care Team (Late st Contact Info) Description 11/23/2024 10:30 AM EST Office Visit Gastroenterology - [place] [address] [facility] [address] [facility] [address] [place] [phone] Henry Morris MD [address] [facility] [address] [place] [address] documented as of this encounter Results * Sedimentation rate (10/18/2024 11:11 AM EST) [facility] Sed Rate 16 0 - 20 mm/hr LAB HEMETOLOGY METHOD 10/18/2024 4:00 PM EST [facility] Blood Venous blood specimen / Unknown Venipuncture / Unknown 10/18/2024 11:11 AM EST 10/18/2024 11:11 AM EST Hayley MALDONADO LAB BLOOD ORDERABLES [facility]) [facility] [address] [place] [address], * C reactive protein, high sensitivity (10/18/2024 11:11 AM EST) [facility] CRP, High Sensitivity 1.41 mg/L LAB CHEMISTRY METHOD 10/18/2024 3:52 PM [facility] Comment: Cardio CRP Relative Risk Categories ?? Low ? <1.0 mg/L ?? Average ?? 1.0 - 3.0 mg/L ?? High ?>3.0 mg/L Levels >10.0 mg/L should be ignored and repeated when the patient is stable and infection or inflammation is ruled out. Blood Venous blood specimen / Unknown Venipuncture / Unknown 10/18/2024 11:11 AM EST 10/18/2024 11:11 AM EST Hayley MALDONADO LAB BLOOD ORDERABLES [facility] [address] [place] [address], * Hepatic function panel (10/18/2024 11:11 AM EST) Total Protein 7.4 6.0 - 8.0 g/dL LAB CHEMISTRY METHOD 10/18/2024 3:53 PM [facility] Albumin 3.7 3.2 - 5.0 g/dL LAB CHEMISTRY METHOD 10/18/2024 3:53 PM [facility] Total Bilirubin 0.8 0.0 - 1.4 mg/dL LAB CHEMISTRY METHOD 10/18/2024 3:53 PM [facility] Bilirubin, Direct 0.1 0.0 - 0.3 mg/dL LAB CHEMISTRY METHOD 10/18/2024 3:53 PM [facility] Bilirubin, Indirect 0.7 0.0 - 1.1 mg/dL LAB CHEMISTRY METHOD 10/18/2024 3:53 PM [facility] ALT (SGPT) 28 10 - 60 unit/L LAB CHEMISTRY METHOD 10/18/2024 3:53 PM [facility] AST (SGOT) 23 10 - 42 unit/L LAB CHEMISTRY METHOD 10/18/2024 3:53 PM EST [facility] Alkaline Phosphatase 68 42 - 121 unit/L LAB CHEMISTRY METHOD 10/18/2024 3:53 PM EST [facility] Blood Venous blood specimen / Unknown Venipuncture / Unknown 10/18/2024 11:11 AM EST 10/18/2024 11:11 AM EST Hayley MALDONADO LAB BLOOD ORDERABLES [facility] [address] [place] [address], documented in this encounter Visit Diagnoses Diagnosis Autoimmune hepatitis (CMS/HCC)- Primary Autoimmune hepatitis documented in this encounter Care Teams Freight Air Brake Fitter Relationship Specialty Start Date End Date Osito Infante MD PCP - General Internal Medicine 08/19/18 10/17/24 documented as of this encounter
--- OUTSIDE RECORDS SUMMARY | 2024-10-26 11:56 | XMS_ITS | Encounter Summary ---
Author Organization [facility] Address [address] [place] [address] Care Team Providers Care Machine Fancy Stitcher Name Role Phone Espinoza Infante MD Primary Care Provider [phone] Encounter Details Date Type Department Care Team (Late st Contact Info) Description 10/18/2024 11:10 AM EST Lab Draw Station - [address] [place] [address] Autoimmune hepatitis (CMS/HCC) Social History Tobacco Use Types Packs/Day Years [...] as of this encounter Progress Notes * ERICA Islas - 10/18/2024 11:10 AM EST Please send letter or call patient and let him know that his blood work was unremarkable. TY documented in this encounter Plan of Treatment Upcoming Encounters Date Type Department Care Team (Late st Contact Info) Description 11/23/2024 10:30 AM EST Office Visit Gastroenterology - [place] [address] [place] [address] Henry oMrris MD [address] [place], [place] [id number] documented as of this encounter Procedures Procedure Name Priority Date/Time Associated Diagnosis Comments CBC WITH AUTO DIFFERENTIAL Routine 10/18/2024 11:11 AM EST Autoimmune hepatitis (CMS/HCC) SEDIMENTATION RATE Routine 10/18/2024 11 :11 AM EST Autoimmune hepatitis (CMS/HCC) CBC AND DIFFERENTIAL Routine 10/18/2024 11:11 AM EST Autoimmune hepatitis (CMS/HCC) C REACTIVE PROTEIN, HIGH SENSITIVITY Routine 10/18/2024 11:11 AM EST Autoimmune hepatitis (CMS/HCC) HEPATIC FUNCTION PANEL Routine 11:11 AM EST Autoimmune hepatitis (CMS/HCC) documented in this encounter Results * (ABNORMAL) CBC auto differential (10/18/2024 11:11 AM EST) WBC 6.6 4.8 - 10.8 K/mcL LAB HEMETOLOGY METHOD 10/18/2024 2:55 PM [facility] RBC 5.10 4.50 - 5.50 M/mcL LAB HEMETOLOGY METHOD 10/18/2024 2:55 PM [facility] Hemoglobin 15.9 13.5 - 17.5 g/dL LAB HEMETOLOGY METHOD 10/18/2024 2:55 PM [facility] Hematocrit 49.4 42.0 - 54.0 % LAB HEMETOLOGY METHOD 10/18/2024 2:55 PM [facility] MCV 96.7 79.0 - 98.0 FL LAB HEMETOLOGY METHOD 10/18/2024 2:55 PM [facility] MCH 31.1 27.0 - 32.0 pcg LAB HEMETOLOGY METHOD 10/18/2024 2:55 PM [facility] MCHC 32.2 32.0 - 37.0 g/dL LAB HEMETOLOGY METHOD 10/18/2024 2:55 PM [facility] RDW 14.7 11.0 - 15.0 % LAB HEMETOLOGY METHOD 10/18/2024 2:55 PM [facility] Platelets 175 130 - 400 K/mcL LAB HEMETOLOGY METHOD 10/18/2024 2:55 PM [facility] MPV 10.6 7.0 - 11.0 FL LAB HEMETOLOGY METHOD 10/18/2024 2:55 PM [facility] NRBC 0.0 <1.0 % LAB HEMETOLOGY METHOD 10/18/2024 2:55 PM [facility] NRBC Absolute 0.00 <0.10 K/mcL LAB HEMETOLOGY METHOD 10/18/2024 2:55 PM [facility] Neutrophils Relative 64.0 % LAB HEMETOLOGY METHOD 10/18/2024 2:55 PM [facility] Lymphocytes Relative 25.6 % LAB HEMETOLOGY METHOD 10/18/2024 2:55 PM [facility] Monocytes Relative 6.2 % LAB HEMETOLOGY METHOD 10/18/2024 2:55 PM [facility] Eosinophils Relative 2.9 % LAB HEMETOLOGY METHOD 10/18/2024 2:55 PM [facility] Basophils Relative 0.5 % LAB HEMETOLOGY METHOD 10/18/2024 2:55 PM [facility] Immature Granulocytes Relative 0.8 % LAB HEMETOLOGY METHOD 10/18/2024 2:55 PM [facility] Neutrophils Absolute 4.25 1.50 - 7.00 K/mcL LAB HEMETOLOGY METHOD 10/18/2024 2:55 PM [facility] Lymphocytes Absolute 1.70 1.00 - 5.00 K/mcL LAB HEMETOLOGY METHOD 10/18/2024 2:55 PM EST [facility] Monocytes Absolute 0.41 0.20 - 1.00 K/mcL LAB HEMETOLOGY METHOD 10/18/2024 2:55 PM EST [facility] Eosinophils Absolute 0.19 0.00 - 0.50 K/[facility] LAB HEMETOLOGY METHOD 10/18/2024 2:55 PM EST [facility] Basophils Absolute 0.03 0.00 - 0.20 K/[facility] LAB HEMETOLOGY METHOD 10/18/2024 2:55 PM EST [facility]) [facility] Immature Granulocytes Absolute 0.05(H) 0.00 - 0.03 K/[facility] LAB HEMETOLOGY METHOD 10/18/2024 2:55 PM EST [facility] Blood Venous blood specimen / Unknown Venipuncture / Unknown 10/18/2024 11:11 AM EST 10/18/2024 11:11 AM EST Hayley MALDONADO LAB BLOOD ORDERABLES [facility] [address] [place] [address], [place] [phone] * Sedimentation rate (10/18/2024 11:11 AM EST) [facility] Sed Rate 16 0 - 20 mm/hr LAB HEMETOLOGY METHOD 10/18/2024 4:00 PM EST [facility] Blood Venous blood specimen / Unknown Venipuncture / Unknown 10/18/2024 11:11 AM EST 10/18/2024 11:11 AM EST Hayley MALDONADO LAB BLOOD ORDERABLES [facility] [address] [place] [address], [place] [phone] * C reactive protein, high sensitivity (10/18/2024 11:11 AM EST) [facility] CRP, High Sensitivity 1.41 mg/L LAB CHEMISTRY METHOD 10/18/2024 3:52 PM EST [facility] Comment: Cardio CRP Relative [...] AM EST Hayley MALDONADO LAB BLOOD ORDERABLES [facility] [address] [place] [address], * Hepatic function panel (10/18/2024 11:11 AM EST) Total Protein 7.4 6.0 - 8.0 g/dL LAB CHEMISTRY METHOD 10/18/2024 3:53 PM EST [facility] Albumin 3.7 3.2 - 5.0 g/dL LAB CHEMISTRY METHOD 10/18/2024 3:53 PM [facility] Total Bilirubin 0.8 0.0 - 1.4 mg/dL LAB CHEMISTRY METHOD 10/18/2024 3:53 PM EST [facility] Bilirubin, Direct 0.1 0.0 - 0.3 mg/dL LAB CHEMISTRY METHOD 10/18/2024 3:53 PM EST [facility] Bilirubin, Indirect 0.7 0.0 - 1.1 mg/dL LAB CHEMISTRY METHOD 10/18/2024 3:53 PM [facility] ALT (SGPT) 28 10 - 60 unit/L LAB CHEMISTRY METHOD 10/18/2024 3:53 PM [facility] AST (SGOT) 23 10 - 42 unit/L LAB CHEMISTRY METHOD 10/18/2024 3:53 PM EST [facility] Alkaline Phosphatase 68 42 - 121 unit/L LAB CHEMISTRY METHOD 10/18/2024 3:53 PM EST [facility] Blood Venous blood specimen / Unknown Venipuncture / Unknown 10/18/2024 11:11 AM EST 10/18/2024 11:11 AM EST Hayley MALDONADO LAB BLOOD ORDERABLES [facility] [address] [place] [address], documented in this encounter Visit Diagnoses Diagnosis Autoimmune hepatitis (CMS/HCC) Autoimmune hepatitis documented in this encounter Care Teams Machine Fancy Stitcher Relationship Specialty Start Date End Date Espinoza Infante MD [address] [place] [address] PCP - General Internal Medicine 10/18/24 documented as of this encounter
--- OUTSIDE RECORDS SUMMARY | 2024-10-26 11:56 | XMS_ITS | Clinical Summary ---
Author Organization [facility] Address [address] [place] [phone] Phone Care Team Providers Care Rn Neurology Name Role Phone Stella Lemus Primary Care Provider [phone] Allergies Active Allergy Reactions Criticality Noted Date Comments Enoxaparin Other (see comments) 07/25/2021 Levetiracetam 07/25/2021 Morphine Other (see comments) 07/25/2021 Medications warfarin (COUMADIN) 2.5 MG tablet Active triamcinolone (KENALOG) 0.1 % lotion Apply as needed Active tamsulosin (FLOMAX) 0.4 MG 24 hr capsule Take 1 capsule by mouth 1 (one) time each day Active simvastatin (ZOCOR) 40 MG tablet Take 1 tablet by mouth every night Active omega-3 (FISH OIL) 1000 MG capsule Take 1 capsule by mouth 2 (two) times a day Active metoprolol tartrate 25 MG tablet Take 0.5 tablets by mouth 2 (two) times a day Active gabapentin (NEURONTIN) 600 MG tablet Take 1 tablet by mouth 2 (two) times a day Active doxazosin (CARDURA) 4 MG tablet Take 1 tablet by mouth 1 (one) time each day Active finasteride (PROSCAR) 5 MG tablet Take 1 tablet by mouth 1 (one) time each day Active cholecalciferol (VITAMIN D-3) 25 MCG (1000 UT) capsule Take 1 capsule by mouth every morning Active Calcium Carbonate-Vitam in D 600-200 MG-UNIT capsule Take 1 capsule by mouth 1 (one) time each day Active amoxicillin (AMOXIL) 500 MG capsule Take 4 capsules by mouth Active nitrofurantoin (MACRODANTIN) 100 MG capsule Take by mouth 4 (four) times a day Active azaTHIOprine (IMURAN) 50 MG tablet 07/23/2022 Active Active Problems Problem Noted Date Diagnosed Date Seizure 08/05/2023 08/05/2023 Obstructive sleep apnea syndrome 08/05/2023 08/05/2023 Confusional state 08/05/2023 08/05/2023 Cerebral infarction 08/05/2023 08/05/2023 Stage 3a chronic kidney disease 07/31/2022 Stage 3b chronic kidney disease 07/25/2021 Renal osteodystrophy 07/25/2021 Encounters Date Type Department Care Team Description 08/03/2024 1:30 PM EST Office Visit [facility] [address] [place] [phone] Joaquin Guaman MD Stage 3b chronic kidney disease (HCC) (Primary Dx); Renal osteodystrophy 07/27/2024 Orders Only [facility] [address] [address] Joaquin Guaman MD from Last 3 Months Immunizations Name Administration Dates Next Due Influenza TIV (IM) 07/23/2015 Pneumococcal Polysaccharide 07/06/2010 Family History Medical History Relation Comments Diabetes Father Heart disease Father Heart disease Mother Hypertension Mother Relation Status Comments Father Mother Social History Tobacco Use Types Packs/Day Years Used Date Smoking Tobacco: Never Alcohol Use Standard Drinks/Week Comments No 0 (1 standard drink = 0.6 oz pur e alcohol) Sex and Gender Information Value Date Recorded Sex Assigned at Not on file Legal Sex Male 5:08 PM EST Gender Identity Not on file Sexual Orientation Not on file Last Filed Vital Signs Vital Sign Reading Time Taken Comments Blood Pressure 110/72 08/03/2024 1:34 PM EST Pulse 69 08/03/2024 1:34 PM EST Temperature - - Respiratory Rate - - Oxygen Saturation 97% 08/03/2024 1:34 PM EST Inhaled Oxygen Concentration - - Weight 96.7 kg (213 lb 3.2 oz) 08/03/2024 1:34 P M EST Height 172.7 cm (5' 8 ) 06/25/2019 12:00 PM EDT Body Mass Index 32.42 06/25/2019 12:00 PM EDT Plan of Treatment Upcoming Encounters Date Type Department Care Team (Latest Contact Info) Description 11/03/2024 Orders Only [facility] [address] [address] Joaquin Guaman MD [address] [address] Stage 3b chronic kidney disease (HCC); Renal osteodystrophy 02/01/2025 1:15 PM EDT Office Visit [facility] [address] [address] Joaquin Guaman MD [address] [address] Health Maintenance Due Date Last Done Comments Pneumococcal Vaccine: 65+ Ye ars (2 of 2 - PCV) 07/06/2011 07/06/2010 Influenza Vaccine (#1) 2024 07/23/2015 Hepatitis B Vaccine Aged Out No longe r eligible based on patient's age to complete this topic Procedures Procedure Name Priority Date/Time Associated Diagnosis Comments PROTEIN / CREATININE RATIO, URINE Routine 07/27/2024 8:37 AM EST URINALYSIS, MICROSCOPIC (HC) Routine 07/27/2024 8:37 AM EST PTH, INTACT Routine 07/27/2024 8:37 AM EST VITAMIN D 25 HYDROXY Routine 07/27/2024 8:37 AM EST RENAL FUNCTION PANEL Routine 07/27/2024 8:37 AM EST MAGNESIUM Routine 07/27/2024 8:37 AM EST CBC Routine 07/27/2024 8:37 AM EST from Last 3 Months Results * (ABNORMAL) Urinalysis, Microscopic (07/27/2024 8:37 AM EST) RBC, Urine 2.0 0 - 4 /HPF [facility] WBC, Urine 30.0(H) 0 - 4 /HPF [facility] Squamous Epithelial, Urine 10 0 - 60 /LPF [facility] Bacteria, Urine Moderate( A) Negative /HPF [facility] Hyaline Casts, UA 1.0 0 - 3 /LPF [facility] 07/27/2024 8:37 AM EST 07/27/2024 9:59 AM EST Joaquin Guaman MD LAB [id number] SOLICITED RESULTS Final Result Performing Organization Address [facility]/ZIP Co de Phone Number [facility] [address] [place] [address] * (ABNORMAL) Protein, Total, Random Urine w/Creatinine (Protein/Creat Ratio) (07/27/2024 8:37 AM EST) Protein, Ur 106 mg/dL [facility] Urine Protein/Creati nine Ratio 1.01(H) <=0.20 mg/mg creat [facility] Creatinine, Urine 105.0 mg/dL [facility] 07/27/2024 8:37 AM EST 07/27/2024 9:59 AM EST Joaquin Guaman MD LAB URINE ORDERABLES Final Re sult Performing Organization Address City/[facility]/ZIP Co de Phone Number [facility] [address] [place] [address] * Vitamin D 25 Hydroxy (07/27/2024 8:37 AM EST) Vitamin D, 25-OH, Total 57.0 30.0 - 80.0 ng/mL [facility] 07/27/2024 8:37 AM EST 07/27/2024 10:02 AM EST Joaquin Guaman MD LAB BLOOD ORDERABLES Final Re sult Performing Organization Address City/[facility]/ZIP Co de Phone Number [facility] [address] [place] [address] * (ABNORMAL) CBC (07/27/2024 8:37 AM EST) WBC 6.2 4.8 - 10.8 K/[facility] RBC 4.70 4.50 - 5.50 M/[facility] Hgb 14.6 13.5 - 17.5 g/dL [facility] Hematocrit 46.5 42.0 - 54.0 % [facility] MCV 98.3(H) 79.0 - 98.0 FL [facility] MCH 30.9 27.0 - 32.0 pcg [facility] MCHC 31.4(L) 32.0 - 37.0 g/dL [facility] RDW 14.8 11.0 - 15.0 % [facility] Platelets 145 130 - 400 K/[facility] MPV 10.5 7.0 - 11.0 FL [facility] nRBC Count 0.0 <1.0 % [facility] NRBC Absolute 0.00 <0.10 K/[facility] 07/27/2024 8:37 AM EST 07/27/2024 10:00 AM EST Joaquin Guaman MD LAB BLOOD ORDERABLES Final Re sult [facility] [address] [place] [address] * PTH, Intact (07/27/2024 8:37 AM EST) Pathologist [facility] PTH 82.1 18.5 - 88.0 pcg/mL [facility] 07/27/2024 8:37 AM EST 07/27/2024 10:02 AM EST Joaquin Guaman MD LAB BLOOD ORDERABLES Final Re sult Performing Organization Address [facility] Co de Phone Number [facility] [address] [place] [address] * Magnesium (07/27/2024 8:37 AM EST) [facility] Magnesium 2.1 1.9 - 2.6 mg/dL [facility] 07/27/2024 8:37 AM EST 07/27/2024 10:02 AM EST Joaquin Guaman MD LAB BLOOD ORDERABLES Final Re sult Performing Organization Address [facility] de Phone Number [facility] [address] [place] [address] * (ABNORMAL) Renal Function Panel (07/27/2024 8:37 AM EST) [facility] Sodium 139 133 - 145 mmol/L [facility] Potassium 4.6 3.5 - 5.5 mmol/L [facility] Chloride 104 96 - 110 mmol/L [facility] Bicarbonate (CO2) 29 21 - 32 mmol/L [facility] Anion Gap 6 3 - 11 [facility] Glucose 114(H) 70 - 100 mg/dL [facility] BUN 34(H) 5 - 25 mg/dL [facility] Creatinine Serum 2.03(H) 0.70 - 1.30 mg/dL [facility] eGFR 32(L) >=60 mL/min/1. 73m2 [facility] Comment:Calculation based on the?Chronic Kidney Disease Epidemiology Collaboration (CKD-EPI) equation refit?without adjustment for race. BUN/Creatinine Ratio 16.7 [facility] Albumin 3.4 3.2 - 5.0 g/dL [facility] Calcium 9.9 8.5 - 10.5 mg/dL [facility] Phosphorus 2.9 2.5 - 4.5 mg/dL [facility] 07/27/2024 8:37 AM EST 07/27/2024 10:02 AM EST Joaquin Guaman MD LAB BLOOD ORDERABLES Final Re sult [facility] ([facility]) [facility] [address] [place] [address] from Last 3 Months Insurance MEDICARE MEDICARE Care Teams Rn Neurology Relationship Specialty Start Date End Date Stella Lemus [address] [place] [address] PCP - General 08/05/23
--- OUTSIDE RECORDS SUMMARY | 2024-10-26 11:56 | XMS_ITS | Clinical Summary ---
Author Organization [address] Address [address] [place] [phone] Phone Care Team Providers Care Drying Tumbler Operator Name Role Phone Espinoza Infante MD Primary Care Provider [phone] Allergies Active Allergy Reactions Criticality Noted Date Comments Enoxaparin 12/12/2015 Levetiracetam 08/21/2018 Morphine Hives High 11/29/2015 Medications Medication Sig Dispensed Refills Start Date End Date Status multivitamin with minerals (CENTRUM/CERTAVIT) 18-400 mg-mcg tablet tablet Take by mouth 1 (one) time each day. Active acetaminophen (TYLENOL) 325 mg tablet 325 mg. 12/07/2015 Active azaTHIOprine (IMURAN) 50 mg tablet Take 1 tablet (50 mg total) by mouth 3 (three) times a day. 11/03/2023 Active calcium carbonate-vitamin D3 600 mg-12.5 mcg (500 unit) capsule Take by mouth daily. A ctive cholecalciferol (VITAMIN D-3) 25 mcg (1,000 unit) tablet 1,000 Units. 01/14/2012 Act wild doxazosin (CARDURA) 4 mg tablet Take 1 tablet (4 mg total) by mouth at bedtime. Active finasteride (PROSCAR) 5 mg tablet 1 tablet (5 mg total) 1 (one) time each day. 05/20/2011 Active gabapentin (NEURONTIN) 600 mg tablet Take 1 tablet (600 mg total) by mouth 2 (two) times a day. Active metoprolol tartrate (LOPRESSOR) 25 mg tablet Take 1 tablet (25 mg total) by mouth 2 (two) times a day. 07/17/2009 Active omega-3 acid ethyl esters (LOVAZA) 1 gram capsule 1 capsule (1,000 mg total) 1 (one) time each day. 06/11/2010 Active simvastatin (ZOCOR) 40 mg tablet 1 tablet (40 mg total) at bedtime. 01/09/2017 Active tamsulosin (FLOMAX) 0.4 mg 24 hr capsule 1 capsule (0.4 mg total) 1 (one) time each day. 08/02/2010 Active warfarin (COUMADIN) 2.5 mg tablet 1 tablet (2.5 mg total). 12/11/2015 Active lancets lancets ONE TOUCH ULTRASOFT LANCETS Misc USE DIRECTED TO TEST FOUR TIMES DAILY DIRECTED 08/13/2008 Active glucose blood test strip Glucose Blood (ONE TOUCH ULTRA TEST STRIPS) Strip USE DIRECTED DAILY 12/27/2008 Active amoxicillin (AMOXIL) 500 mg capsule Take 500 mg by mouth as needed. PRIOR TO DENTIST OR INVASIVE PROCEDURES TAKE 4 CAPS 1 HOUR PRIOR Active nitrofurantoin (MACRODANTIN) 25 mg capsule Take 25 mg by mouth 4 times daily. Active azaTHIOprine (IMURAN) 50 mg tablet Take 3 tablets daily 11/11/2023 Acti ve metoprolol tartrate (LOPRESSOR) 25 mg tablet Take 0.5 Tablets by mouth 2 times daily. 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 Factor V Leiden 12/01/2023 ARGENIS (obstructive sleep apnea) 12/01/2023 Seizures 12/01/2023 Allergic rhinitis 07/21/2019 Autoimmune hepatitis 07/21/2019 Overview (12/01/2023): 2012 BPH (benign prostatic hyperplasia) 07/21/2019 CAD (coronary artery disease) 07/21/2019 Overview (12/01/2023): CABG Carotid artery stenosis 07/21/2019 Overview (12/01/2023): Bilateral Cataract 07/21/2019 Chronic venous insufficiency 07/21/2019 Hyperlipidemia 07/21/2019 Hypertension 07/21/2019 Interstitial lung disease 07/21/2019 Nephrolithiasis 07/21/2019 Type 2 diabetes mellitus 07/21/2019 DM (diabetes mellitus), type 2 with peripheral vascular complications 07/21/2019 DM (diabetes mellitus), type 2 with renal compli cations 07/21/2019 Type 2 diabetes mellitus with cataract 9 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 Aneurysm of ascending aorta 07/28/2017 Iron deficiency anemia 12/12/2015 Encounters Date Type Department Care Team Description 10/18/2024 11:10 AM EST Lab Draw Station - [address] [place] [address] Autoimmune hepatitis (CMS/HCC) 10/13/2024 Telephone Gastroenterology - [place] [address] [place] [address] Henry Morris MD Provider Call Back from Last 3 Months Immunizations Name Administration Dates Next Due H1N1 Inj Preservative Free 09/22/2009 Influenza Quadravalent, MDCK , 0.5ml, preservative free (Flucelvax) 6mo and older 06/23/2012 Influenza trivalent, 0.5mL ( Fluzone High-dose) 65yo and older 07/01/2017,07/13/2015,06/16/2014,06/22 Influenza trivalent, 0.5mL, preservative free (Fluarix; FluLaval; Fluzone) ages 6mo and older (Afluria) 3 years and older 07/19/2010 Influenza trivalent, with pr eservative (Fluzone; Afluria) 6mo and older 06/24/2016,06/13/2011 Pneumococcal conjugate 13 va lent (Prevnar 13, PCV13) 2mo and older 02/17/2015 Pneumococcal polysaccharide 23 valent (Pneumovax 23) 2yo and older 09/22/2007 Surgical History Surgery Date Site/Laterality Comments TURP / TRANSURETHRAL INCISIO N / DRAINAGE PROSTATE 1998 PROCEDURE: HISTORICAL TURP PROSTATE SURGERY 08/17/2008 PROCEDURE: HISTORICAL PROSTATE SURGERY; COMMENT: Laser Prostatectomy OTHER SURGICAL HISTORY 12/04/2015 PROCEDURE: VENA CAVA FILTER AORTIC VALVE REPLACEMENT 2006 PROCEDURE: HISTORICAL AORTIC VALVE REPL; COMMENT: Bovine Valve CORONARY ARTERY BYPASS GRAFT PROCEDURE: HISTORICAL CABG HERNIA REPAIR PROCEDURE: HISTORICAL HERNIA REPAIR/ING THYROIDECTOMY PROCEDURE: HISTORICAL TOTAL THYROIDECTOMY Medical History Medical History Date Comments Factor V Leiden (CMS/HCC) DX:Fac tor V Leiden (HCC) Seizures (CMS/HCC) DX:Seizures ( HCC) DVT (deep venous thrombosis) (CMS/HCC) DX:DVT (deep venous thrombosis) (HCC) 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CMS/HCC) DX: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HCC) Aortic valve replaced DX:Aortic valve replaced ARGENIS (obstructive sleep apnea) DX :ARGENIS (obstructive sleep apnea) BPH (benign prostatic hyperplasia) 07/21/2019 DX:BPH (benign prostatic hyperplasia) CKD (chronic kidney disease) stage 3, GFR 30-59 ml/min (CMS/HCC) DX:CKD (chronic kidney dise ase) stage 3, GFR 30-59 ml/min (HCC) Hyperlipidemia 07/21/2019 DX:Hyperlipidemi a Hypertension 07/21/2019 DX:Hypertension CAD (coronary artery disease) 07/21/2019 DX :CAD (coronary artery disease); COMMENT: CABG DM (diabetes mellitus), type 2 with renal complications (CMS/HCC) 07/21/2019 DX:DM (diabetes mellitus ), type 2 with renal complications (HCC) Nephrolithiasis 07/21/2019 DX:Nephrolithias is Autoimmune hepatitis (CMS/HCC) 07/21/2019 D X:Autoimmune hepatitis (HCC) Interstitial lung disease (CMS/HCC) 07/21/2019 DX:Interstitial lung disease (HCC) Allergic rhinitis 07/21/2019 DX:Allergic rh initis Cataract 07/21/2019 DX:Cataract Type 2 diabetes mellitus wit h cataract (CMS/HCC) 07/21/2019 DX:Type 2 diabetes mellitus with cataract (HCC) Chronic venous insufficiency 07/21/2019 DX: Chronic venous insufficiency DM (diabetes mellitus), type 2 with peripheral vascular complications (CMS/HCC) 07/21/2019 DX:DM (diabetes mellitus), t ype 2 with peripheral vascular complications (HCC) Carotid artery stenosis 07/21/2019 DX:Carot id artery stenosis; COMMENT: Bilateral History of DVT (deep vein thrombosis) 08/21/2018 DX:History of DVT (deep vein thrombosis) 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:Post -thrombotic syndrome Aneurysm of ascending aorta (CMS/HCC) 07/28/2017 DX:Aneurysm of ascending aorta (HCC) Family History Medical History Relation Name Comments Other: Factor V Leiden Mutation Brother brothers Diabetes Other Hypertension Other Other: Factor V Leiden Mutation Other Other: heart disease Other Other: Factor V Leiden Mutation Sister sisters Relation Name Status Comments Brother Other Sister Social History Tobacco Use Types Packs/Day Years [...] file Not on file Not on file Obstetrics History Last Filed Vital Signs Vital Sign Reading Time Taken Comments Blood Pressure 118/68 03/16/2024 10:56 AM EDT Pulse 70 03/16/2024 10:56 AM EDT Temperature - - Respiratory Rate - - Oxygen Saturation - - Inhaled Oxygen Concentration - - Weight 97.1 kg (214 lb) 03/16/2024 10:56 AM EDT Height 168.9 cm (5' 6.5 ) 09/09/2023 8:50 AM EST Body Mass Index 34.02 09/09/2023 8:50 AM EST Plan of Treatment Upcoming Encounters Date Type Department Care Team (Late st Contact Info) Description 11/23/2024 10:30 AM EST Office Visit Gastroenterology - [place] [address] [facility] 175 [facility] [address] [place] [phone] Henry Morris MD [address] [facility] [address] [place] [address] Health Maintenance Due Date Last Done Comments Diabetes: Annual Foot Exam 1953 Diabetes: Annual Retina Eye Exam 1955 DTaP,Tdap,and Td Vaccines (1 - Tdap) 1962 Hepatitis A Vaccines (1 of 2 - Risk 2-dose series) 1962 Zoster Vaccines (1 of 2) 1962 Hepatitis B Vaccines (1 of 3 - Risk 3-dose series) 2003 Cholesterol Screening (Lipid Panel) 08/24/2022 Depression Screening 08/24/2022 Falls Risk Assessment 08/24/2022 Social Influencers of Health Screening 08/24/2022 Diabetes: Annual Urine Albumin-Creatinine Ratio (uACR) 09/07/2022 Diabetes: Blood Sugar Control Test (HGBA1C) 09/07/2022 Medicare Annual Wellness Visit 11/27/2023 11/26/2022 Diabetes: Annual GFR (Glomerular Filtration Rate) 07/27/2025 07/27/2024 Hypertension/CHF/CAD Annual BMP Blood Test 07/27/2025 07/27/2024 Pneumococcal Vaccine: 65+ Years Completed 02/17/2015, 07/06/2010, 09/22/2007 RSV Immunization Patients 60+ Years Old Completed 09/08/2023 Influenza Vaccine Completed 07/13/2024, , 07/04/2022, Additional history exists COVID-19 Vaccine Completed 08/10/2024, 10/2022, 06/10/2022, Additional history exists HIB Vaccines Aged Out No longer eligi ble based on patient's age to complete this topic HPV Vaccines Aged Out No longer eligi ble based on patient's age to complete this topic IPV Vaccines Aged Out No longer eligi ble based on patient's age to complete this topic MMR Vaccines Aged Out No longer eligi ble based on patient's age to complete this topic Meningococcal ACWY Vaccine Aged Out N o longer eligible based on patient's age to complete this topic RSV Immunization Patients Under 20 months Aged Out No longer eligible based on patient's age to complete this topic Varicella Vaccines Aged Out No longer eligible based on patient's age to complete this topic Procedures Procedure Name Priority Date/Time Associated Diagnosis Comments CBC WITH AUTO DIFFERENTIAL Routine 10/18/2024 11:11 AM EST Autoimmune hepatitis (CMS/HCC) CBC AND DIFFERENTIAL Routine 10/18/2024 11:11 AM EST Autoimmune hepatitis (CMS/HCC) SEDIMENTATION RATE Routine 10/18/2024 11 :11 AM EST Autoimmune hepatitis (CMS/HCC) C REACTIVE PROTEIN, HIGH SENSITIVITY Routine 10/18/2024 11:11 AM EST Autoimmune hepatitis (CMS/HCC) HEPATIC FUNCTION PANEL Routine 11:11 AM EST Autoimmune hepatitis (CMS/HCC) URINALYSIS MICROSCOPIC ONLY Routine 07/27/2024 8:37 AM EST Stage 3b chronic kidney disease (CMS/HCC) MAGNESIUM Routine 07/27/2024 8:37 AM EST Stage 3b chronic kidney disease (CMS/HCC) COMPLETE BLOOD COUNT Routine 07/27/2024 8:37 AM EST Stage 3b chronic kidney disease (CMS/HCC) VITAMIN D 25 HYDROXY Routine 07/27/2024 8:37 AM EST Stage 3b chronic kidney disease (CMS/HCC) PROTEIN AND CREATININE WITH RATIO, URINE Routine 07/27/2024 8:37 AM EST Stage 3b chronic kidney disease (CMS/HCC) URINALYSIS MICROSCOPIC ONLY Routine 07/27/2024 8:37 AM EST Stage 3b chronic kidney disease (CMS/HCC) RENAL FUNCTION PANEL Routine 07/27/2024 8:37 AM EST Stage 3b chronic kidney disease (CMS/HCC) PARATHYROID HORMONE INTACT Routine 07/27/2024 8:37 AM EST Stage 3b chronic kidney disease (CMS/HCC) from Last 3 Months Results * (ABNORMAL) CBC auto differential (10/18/2024 11:11 AM EST) WBC 6.6 4.8 - 10.8 K/mcL LAB HEMETOLOGY METHOD 10/18/2024 2:55 PM EST [facility] RBC 5.10 4.50 - 5.50 M/mcL LAB HEMETOLOGY METHOD 10/18/2024 2:55 PM EST [facility] Hemoglobin 15.9 13.5 - 17.5 g/dL LAB HEMETOLOGY METHOD 10/18/2024 2:55 PM [facility] Hematocrit 49.4 42.0 - 54.0 % LAB HEMETOLOGY METHOD 10/18/2024 2:55 PM [facility] MCV 96.7 79.0 - 98.0 FL LAB HEMETOLOGY METHOD 10/18/2024 2:55 PM [facility] MCH 31.1 27.0 - 32.0 pcg LAB HEMETOLOGY METHOD 10/18/2024 2:55 PM [facility] MCHC 32.2 32.0 - 37.0 g/dL LAB HEMETOLOGY METHOD 10/18/2024 2:55 PM [facility] RDW 14.7 11.0 - 15.0 % LAB HEMETOLOGY METHOD 10/18/2024 2:55 PM [facility] Platelets 175 130 - 400 K/mcL LAB HEMETOLOGY METHOD 10/18/2024 2:55 PM [facility] MPV 10.6 7.0 - 11.0 FL LAB HEMETOLOGY METHOD 10/18/2024 2:55 PM [facility] NRBC 0.0 <1.0 % LAB HEMETOLOGY METHOD 10/18/2024 2:55 PM [facility] NRBC Absolute 0.00 <0.10 K/mcL LAB HEMETOLOGY METHOD 10/18/2024 2:55 PM [facility] Neutrophils Relative 64.0 % LAB HEMETOLOGY METHOD 10/18/2024 2:55 PM [facility] Lymphocytes Relative 25.6 % LAB HEMETOLOGY METHOD 10/18/2024 2:55 PM [facility] Monocytes Relative 6.2 % LAB HEMETOLOGY METHOD 10/18/2024 2:55 PM [facility] Eosinophils Relative 2.9 % LAB HEMETOLOGY METHOD 10/18/2024 2:55 PM [facility] Basophils Relative 0.5 % LAB HEMETOLOGY METHOD 10/18/2024 2:55 PM EST [facility] Immature Granulocytes Relative 0.8 % LAB HEMETOLOGY METHOD 10/18/2024 2:55 PM [facility] Neutrophils Absolute 4.25 1.50 - 7.00 K/mcL LAB HEMETOLOGY METHOD 10/18/2024 2:55 PM EST [facility] Lymphocytes Absolute 1.70 1.00 - 5.00 K/mcL LAB HEMETOLOGY METHOD 10/18/2024 2:55 PM EST [facility] Monocytes Absolute 0.41 0.20 - 1.00 K/mcL LAB HEMETOLOGY METHOD 10/18/2024 2:55 PM [facility] Eosinophils Absolute 0.19 0.00 - 0.50 K/mcL LAB HEMETOLOGY METHOD 10/18/2024 2:55 PM EST [facility] Basophils Absolute 0.03 0.00 - 0.20 K/mcL LAB HEMETOLOGY METHOD 10/18/2024 2:55 PM EST [facility] Immature Granulocytes Absolute 0.05(H) 0.00 - 0.03 K/mcL LAB HEMETOLOGY METHOD 10/18/2024 2:55 PM EST [facility] Blood Venous blood specimen / Unknown Venipuncture / Unknown 10/18/2024 11:11 AM EST 10/18/2024 11:11 AM EST Hayley MALDONADO LAB BLOOD ORDERABLES [facility] [address] [place] [address], * Sedimentation rate (10/18/2024 11:11 AM EST) Sed Rate 16 0 - 20 mm/hr LAB HEMETOLOGY METHOD 10/18/2024 4:00 PM EST [facility] Blood Venous blood specimen / Unknown Venipuncture / Unknown 10/18/2024 11:11 AM EST 10/18/2024 11:11 AM EST Hayley MALDONADO LAB BLOOD ORDERABLES Performing Organization Address [facility] Co de Phone Number [facility] [address] [place] [address], * C reactive protein, high sensitivity (10/18/2024 11:11 AM EST) CRP, High Sensitivity 1.41 mg/L LAB CHEMISTRY METHOD 10/18/2024 3:52 PM EST [facility] Comment: Cardio CRP Relative Risk [...] AM EST Hayley MALDONADO LAB BLOOD ORDERABLES Performing Organization Address [facility] Co de Phone Number [facility] [address] [place] [address], * Hepatic function panel (10/18/2024 11:11 AM EST) Total Protein 7.4 6.0 - 8.0 g/dL LAB CHEMISTRY METHOD 10/18/2024 3:53 PM EST [facility] Albumin 3.7 3.2 - 5.0 g/dL LAB CHEMISTRY METHOD 10/18/2024 3:53 PM EST [facility] Total Bilirubin 0.8 0.0 - 1.4 mg/dL LAB CHEMISTRY METHOD 10/18/2024 3:53 PM [facility] Bilirubin, Direct 0.1 0.0 - 0.3 mg/dL LAB CHEMISTRY METHOD 10/18/2024 3:53 PM [facility] Bilirubin, Indirect 0.7 0.0 - 1.1 mg/dL LAB CHEMISTRY METHOD 10/18/2024 3:53 PM [facility] ALT (SGPT) 28 10 - 60 unit/L LAB CHEMISTRY METHOD 10/18/2024 3:53 PM [facility] AST (SGOT) 23 10 - 42 unit/L LAB CHEMISTRY METHOD 10/18/2024 3:53 PM [facility] Alkaline Phosphatase 68 42 - 121 unit/L LAB CHEMISTRY METHOD 10/18/2024 3:53 PM [facility] Blood Venous blood specimen / Unknown Venipuncture / Unknown 10/18/2024 11:11 AM EST 10/18/2024 11:11 AM EST Hayley MALDONADO LAB BLOOD ORDERABLES [facility] [address] [place] [address], * (ABNORMAL) Urinalysis microscopic only (07/27/2024 8:37 AM EST) RBC, Urine 2.0 0 - 4 /HPF LAB URINALYSIS - AUTOMATED METHOD 07/27/2024 1:18 PM [facility] WBC, Urine 30.0(H) 0 - 4 /HPF LAB URINALYSIS - AUTOMATED METHOD 07/27/2024 1:18 PM [facility] Squamous Epithelial, Urine 10 0 - 60 /LPF LAB URINALYSIS - AUTOMATED METHOD 07/27/2024 1:18 PM [facility] Bacteria, Urine Moderate( A) Negative /HPF LAB URINALYSIS - AUTOMATED METHOD 07/27/2024 1:18 PM [facility] Hyaline Casts, Urine 1.0 0 - 3 /LPF LAB URINALYSIS - AUTOMATED METHOD 07/27/2024 1:18 PM [facility] Urine Urine specimen obtained by clean catch procedure / Unknown Non-blood Collection / Unknown 07/27/2024 8:37 AM EST 07/27/2024 9:59 AM EST Joaquin Guaman MD LAB URINE ORDERABLES Performing Organization Address [facility]/ZIP Co de Phone Number [facility] [address] [place] [address], * (ABNORMAL) Protein and creatinine with ratio, urine (07/27/2024 8:37 AM EST) Protein, Urine 106 mg/dL LAB CHEMISTRY METHOD 07/27/2024 1:54 PM [facility] Prot/Creat, Ur 1.01(H) <=0.20 mg/mg creat LAB CHEMISTRY METHOD 07/27/2024 1:54 PM [facility] Creatinine, Urine 105.0 mg/dL LAB CHEMISTRY METHOD 07/27/2024 1:54 PM [facility] Urine Urine specimen obtained by clean catch procedure / Unknown Non-blood Collection / Unknown 07/27/2024 8:37 AM EST 07/27/2024 9:59 AM EST Joaquin Guaman MD LAB URINE ORDERABLES [facility] [address] [place] [address], * Vitamin D 25 hydroxy (07/27/2024 8:37 AM EST) Vit D, 25-Hydroxy 57.0 30.0 - 80.0 ng/mL LAB CHEMISTRY METHOD 07/27/2024 11:18 AM EST [facility] Blood Venous blood specimen / Unknown Venipuncture / Unknown 07/27/2024 8:37 AM EST 07/27/2024 10:02 AM EST Joaquin Guaman MD LAB BLOOD ORDERABLES [facility] [address] [place] [address], * (ABNORMAL) Complete blood count (07/27/2024 8:37 AM EST) WBC 6.2 4.8 - 10.8 K/mcL LAB HEMETOLOGY METHOD 07/27/2024 10:28 AM [facility] RBC 4.70 4.50 - 5.50 M/mcL LAB HEMETOLOGY METHOD 07/27/2024 10:28 AM [facility] Hemoglobin 14.6 13.5 - 17.5 g/dL LAB HEMETOLOGY METHOD 07/27/2024 10:28 AM [facility] Hematocrit 46.5 42.0 - 54.0 % LAB HEMETOLOGY METHOD 07/27/2024 10:28 AM [facility] MCV 98.3(H) 79.0 - 98.0 FL LAB HEMETOLOGY METHOD 07/27/2024 10:28 AM [facility] MCH 30.9 27.0 - 32.0 pcg LAB HEMETOLOGY METHOD 07/27/2024 10:28 AM [facility] MCHC 31.4(L) 32.0 - 37.0 g/dL LAB HEMETOLOGY METHOD 07/27/2024 10:28 AM [facility] RDW 14.8 11.0 - 15.0 % LAB HEMETOLOGY METHOD 07/27/2024 10:28 AM [facility] Platelets 145 130 - 400 K/mcL LAB HEMETOLOGY METHOD 07/27/2024 10:28 AM EST [facility] MPV 10.5 7.0 - 11.0 FL LAB HEMETOLOGY METHOD 07/27/2024 10:28 AM EST [facility] NRBC 0.0 <1.0 % LAB HEMETOLOGY METHOD 07/27/2024 10:28 AM EST [facility] NRBC Absolute 0.00 <0.10 K/mcL LAB HEMETOLOGY METHOD 07/27/2024 10:28 AM EST [facility] Blood Venous blood specimen / Unknown Venipuncture / Unknown 07/27/2024 8:37 AM EST 07/27/2024 10:00 AM EST Joaquin Guaman MD LAB BLOOD ORDERABLES Performing Organization Address City/[facility]/ZIP Co de Phone Number [facility] [address] [place] [address], * Parathyroid hormone intact (07/27/2024 8:37 AM EST) PTH 82.1 18.5 - 88.0 pcg/mL LAB CHEMISTRY METHOD 07/27/2024 11:24 AM EST [facility] Blood Venous blood specimen / Unknown Venipuncture / Unknown 07/27/2024 8:37 AM EST 07/27/2024 10:02 AM EST Joaquin Guaman MD LAB BLOOD ORDERABLES [facility] [address] [place] [address], * Magnesium (07/27/2024 8:37 AM EST) Magnesium 2.1 1.9 - 2.6 mg/dL LAB CHEMISTRY METHOD 07/27/2024 11:07 AM EST [facility] Blood Venous blood specimen / Unknown Venipuncture / Unknown 07/27/2024 8:37 AM EST 07/27/2024 10:02 AM EST Joaquin Guaman MD LAB BLOOD ORDERABLES [facility] [address] [place] [address], * (ABNORMAL) Renal function panel (07/27/2024 8:37 AM EST) Sodium 139 133 - 145 mmol/L LAB CHEMISTRY METHOD 07/27/2024 11:07 AM [facility] Potassium 4.6 3.5 - 5.5 mmol/L LAB CHEMISTRY METHOD 07/27/2024 11:07 AM [facility] Chloride 104 96 - 110 mmol/L LAB CHEMISTRY METHOD 07/27/2024 11:07 AM [facility] CO2 29 21 - 32 mmol/L LAB CHEMISTRY METHOD 07/27/2024 11:07 AM [facility] Anion Gap 6 3 - 11 LAB CHEMISTRY METHOD 07/27/2024 11:07 AM [facility] Glucose 114(H) 70 - 100 mg/dL LAB CHEMISTRY METHOD 07/27/2024 11:07 AM [facility] BUN 34(H) 5 - 25 mg/dL LAB CHEMISTRY METHOD 07/27/2024 11:07 AM [facility] Creatinine 2.03(H) 0.70 - 1.30 mg/dL LAB CHEMISTRY METHOD 07/27/2024 11:07 AM [facility] eGFR 32(L) >=60 mL/min/1. 73m2 LAB CHEMISTRY METHOD 07/27/2024 11:07 AM [facility] Comment:Calculation based on the??Chronic Kidney Disease Epidemiology Collaboration (CKD-EPI) equation refit??without adjustment for race. BUN/Creatinine Ratio 16.7 LAB CHEMISTRY METHOD 07/27/2024 11:07 AM EST [facility] Albumin 3.4 3.2 - 5.0 g/dL LAB CHEMISTRY METHOD 07/27/2024 11:07 AM EST [facility] Calcium 9.9 8.5 - 10.5 mg/dL LAB CHEMISTRY METHOD 07/27/2024 11:07 AM EST [facility] Phosphorus 2.9 2.5 - 4.5 mg/dL LAB CHEMISTRY METHOD 07/27/2024 11:07 AM EST [facility] Blood Venous blood specimen / Unknown Venipuncture / Unknown 07/27/2024 8:37 AM EST 07/27/2024 10:02 AM EST Joaquin Guaman MD LAB BLOOD ORDERABLES Performing Organization Address City/State/[facility] Co de Phone Number [facility] [address] [place], [place] [address] [phone] from Last 3 Months Advance Directives Documents on File Type Date Recorded Patient Elevator Attendant Expl anation Health Care Decision (hx) 01/06/2012 AD PEREZ DIRECTIVE Health Care Decision (hx) 01/06/2012 AD PEREZ DIRECTIVE Health Care Decision (hx) 01/06/2012 AD PEREZ DIRECTIVE Care Teams Drying Tumbler Operator Relationship Specialty Start Date End Date Espinoza Infante MD [address] [place] [id number] (work) PCP - General Internal Medicine 10/18/24
== END 2024-10-26 11:30 | disposition home or self-care (01) ==
LOC: HO.ACS 11:00
PROVIDERS: PCP Physician Assistant Medical; Visit Provider Internal Medicine
DX: Z79.01 Long term (current) use of anticoagulants (principal)

== ENCOUNTER → 2024-10-26 11:00 | Outpatient (BNVA) | payer MEDICARE, SELFPAY | PROVIDERS: PCP Physician Assistant Medical; Visit Provider Internal Medicine | DX: I26.99 Other pulmonary embolism without acute cor pulmonale (principal); Z79.01 Long term (current) use of anticoagulants; Z51.81 Encounter for therapeutic drug level monitoring | CPT/HCPCS: 85610; 99211 ==

== ENCOUNTER → 2024-11-05 09:58 | Outpatient (BNVA) | payer MEDICARE, SELFPAY | PROVIDERS: PCP Physician Assistant Medical; Visit Provider Internal Medicine ==

== ENCOUNTER 2024-11-12 10:57 | Outpatient (AMB) | payer MEDICARE, SELFPAY ==
[2024-11-12 11:46] LABS: Prothrombin Time Whole Bld POC 36.8 sec (11.1-13.5); ~PT, ~INR - Anti Coag Clinic 3.1 (0.9-1.1)
--- NOTE | 2024-11-12 11:47 | MHC.OFFVISCO ---
Intake Intake Visit Reasons: Anticoagulation Allergies lovenox Allergy (Severe, Uncoded 11/12/24 11:30) bleeding morphine Allergy (Severe, Uncoded 11/12/24 11:30) Rash kepra Adverse Reaction (Severe, Uncoded 11/12/24 11:30) Drowsy Medication List - Last Reconciled 11/12/24 by Sultana Romero RN amoxicillin 2,000 mg PO ONCE PRN azathioprine 150 mg PO DAILY calcium carbonate-vitamin D3 600 mg-10 mcg (400 unit) caps PO DAILY cholecalciferol (vitamin D3) 25 mcg PO DAILY finasteride 5 mg PO DAILY gabapentin 600 mg PO BID metoprolol tartrate 12.5 mg PO BID multivitamin 1 tab PO DAILY nitrofurantoin macrocrystal 100 mg PO .qod omega 4-vwn-lwk-fish oil 1,000 (120-180) mg (Fish Oil) 1 cap PO BID simvastatin 40 mg PO BEDTIME tamsulosin 0.4 mg PO BEDTIME triamcinolone acetonide 0.1% 1 appl topical DAILY PRN warfarin 2.5 mg See Protocol PO DAILY Nursing Note INR: 3.2 in therapeutic range Medications and supplements reviewed No changes in health, diet, medications, or supplements, Denies any signs and symptoms of bleeding or bruising or clotting. Bleeding, bruising, clotting discussed Nutritional guidance given Dose: 7.5MG X 3 DAYS/ 5MG X 4 DAYS F/U INR: 1 MONTH Patient verbalizes understanding of instructions given Anti-Coag Initial Assessment Social Hx Patient Tobacco Use Status: Never used Tobacco alcohol intake: current Alcohol intake frequency: holidays/special occasions only Cardiovascular Hx: HTN Lung Disease HX: DVT/PE and Other Endocrine Hx: Diabetes and Autoimmune disorders Blood Disorder Hx: Hyperlipidemia and Hepatitis Hx: Kidney Disease and Prostate Neurological Hx: Epilepsy/Seizures and Stroke/TIA Cancer HX: No Psych. Illness/Depression: No Coding Level of Care Code Est Patient Level 1 Diagnoses Current use of anticoagulant therapy Z79.01 Assessment & Plan Assessment & Plan (1) Current use of anticoagulant therapy: Code(s): Z79.01 - longterm (current) use of anticoagulants Category: Medical
--- OUTSIDE RECORDS SUMMARY | 2024-11-12 12:03 | XMS_ITS | Clinical Summary ---
Author Organization [facility] Address [address] [place] [phone] Phone Care Team Providers Care Cutter Operator Name Role Phone Stella Lemus Primary Care Provider [phone] Allergies Active Allergy Reactions Criticality Noted Date [...] Encounters Date Type Department Care Team Description 11/03/2024 Orders Only [facility] [address] [facility] [address] [place] [address] Joaquin Guaman MD Stage 3b chronic kidney disease (HCC); Renal osteodystrophy from Last 3 Months Immunizations Name Administration [...] Care Team (Late st Contact Info) Description 02/01/2025 1:15 PM EDT Office Visit [facility] [address] [facility] [address] [place] [address] Joaquin Guaman MD [address] [phone] Health Maintenance Due Date Last Done Comments Pneumococcal Vaccine: 65+ Ye ars (2 of 2 - PCV) 07/06/2011 07/06/2010 Influenza Vaccine (#1) 2024 07/23/2015 Hepatitis B Vaccine Aged Out No longe r eligible based on patient's age to complete this topic Insurance [facility] MEDICARE [facility] MEDIC[facility] Care Teams Cutter Operator Relationship Specialty Start Date End Date Stella Lemus [address] [place] [address] PCP - General 08/05/23
--- OUTSIDE RECORDS SUMMARY | 2024-11-12 12:03 | XMS_ITS ---
Author Organization [facility] Address [address] [place] [address] Care Team Providers Care Staff Development Coordinator Name Role Phone HERNANDEZJUMANA TOMAS Primary Care Provider CHRISTINA WALTERS [phone] REASON FOR VISIT Refills MEDICATIONS Medication SIG (Take, Route, Fr equency, Duration) Notes Start Date End Date Status Gabapentin 600 MG TAKE 1 TABLET TWICE A DAY for 90 days Active Encounters Encounter Location Date Provider Diagnosis [facility] [address] [place] [address] 11/05/2024 CHRISTINA WALTERS PLAN OF TREATMENT Medication Medication Name Sig Start Date Stop Date Notes Gabapentin 600 MG TAKE 1 TABLET TWICE A DAY for 90 days Next Appt Details Provider Name:CHRISTINA WALTERS, 11/18/2024 11:30:00 AM, [address] [place], [address], Progress Notes * IRVIN SUAZODOB:[birth year] (79 yo M)Acc No.[id number]:11/05/2024 Patient:??IRVIN SUAZO ID :[id number]?Age:79 Y?Sex:Meliza de león Address:[address] [place] [address] * Refills?? Refill Gabapentin Tablet, 600 MG, 180, TAKE 1 TABLET TWICE A DAY, 90 days, Refills=0 * true * Date:??
--- OUTSIDE RECORDS SUMMARY | 2024-11-12 12:03 | XMS_ITS | Encounter Summary ---
Author Organization [facility] Address [address] [place] [address] Care Team Providers Care Aluminum Fabrication Supervisor Name Role Phone Espinoza Infante MD Primary Care Provider [phone] Encounter Details Date Type Department Care Team (Late st Contact Info) Description 10/18/2024 11:10 AM EST Lab Draw Station - [address] [place] [address] Autoimmune hepatitis (CMS/HCC) Social History Tobacco Use Types Packs/Day Years Used Date Smoking Tobacco: Never Smokeless Tobacco: Never Alcohol Use Standard Drinks/Week Comments Yes 0 (1 standard drink = 0.6 oz pur e alcohol) Sex and Gender Information Value Date Recorded Sex Assigned at Not on file Legal Sex Male 5:57 PM EST Gender Identity Not on file Sexual Orientation Not on file documented as of this encounter Progress Notes * ERICA Islas - 10/18/2024 11:10 AM EST Please send letter or call patient and let him know that his blood work was unremarkable. TY documented in this encounter Plan of Treatment Upcoming Encounters Date Type Department Care Team (Late st Contact Info) Description 11/23/2024 10:30 AM EST Office Visit Gastroenterology - [place] [address] [place] [address] Henry Morris MD [address] [place], [place] [phone] documented as of this encounter Procedures Procedure [...] K/mcL LAB HEMETOLOGY METHOD 10/18/2024 2:55 PM [facility] RBC 5.10 4.50 - 5.50 M/mcL LAB HEMETOLOGY METHOD 10/18/2024 2:55 PM [facility] Hemoglobin 15.9 13.5 - 17.5 g/dL LAB HEMETOLOGY METHOD 10/18/2024 2:55 PM [facility] Hematocrit 49.4 42.0 - 54.0 % LAB HEMETOLOGY METHOD 10/18/2024 2:55 PM [facility] MCV 96.7 79.0 - 98.0 FL LAB HEMETOLOGY METHOD 10/18/2024 2:55 PM [facility] MCH 31.1 27.0 - 32.0 pcg LAB HEMETOLOGY METHOD 10/18/2024 2:55 PM [facility] MCHC 32.2 32.0 - 37.0 g/dL LAB HEMETOLOGY METHOD 10/18/2024 2:55 PM [facility] RDW 14.7 11.0 - 15.0 % LAB HEMETOLOGY METHOD 10/18/2024 2:55 PM [facility] Platelets 175 130 - 400 K/mcL LAB HEMETOLOGY METHOD 10/18/2024 2:55 PM [facility] MPV 10.6 7.0 - 11.0 FL LAB HEMETOLOGY METHOD 10/18/2024 2:55 PM [facility] NRBC 0.0 <1.0 % LAB HEMETOLOGY METHOD 10/18/2024 2:55 PM [facility] NRBC Absolute 0.00 <0.10 K/mcL LAB HEMETOLOGY METHOD 10/18/2024 2:55 PM [facility] Neutrophils Relative 64.0 % LAB HEMETOLOGY METHOD 10/18/2024 2:55 PM [facility] Lymphocytes Relative 25.6 % LAB HEMETOLOGY METHOD 10/18/2024 2:55 PM [facility] Monocytes Relative 6.2 % LAB HEMETOLOGY METHOD 10/18/2024 2:55 PM [facility] Eosinophils Relative 2.9 % LAB HEMETOLOGY METHOD 10/18/2024 2:55 PM [facility] Basophils Relative 0.5 % LAB HEMETOLOGY METHOD 10/18/2024 2:55 PM [facility] Immature Granulocytes Relative 0.8 % LAB HEMETOLOGY METHOD 10/18/2024 2:55 PM [facility] Neutrophils Absolute 4.25 1.50 - 7.00 K/mcL LAB HEMETOLOGY METHOD 10/18/2024 2:55 PM [facility] Lymphocytes Absolute 1.70 1.00 - 5.00 K/mcL LAB HEMETOLOGY METHOD 10/18/2024 2:55 PM EST [facility] Monocytes Absolute 0.41 0.20 - 1.00 K/mcL LAB HEMETOLOGY METHOD 10/18/2024 2:55 PM EST [facility] Eosinophils Absolute 0.19 0.00 - 0.50 K/[facility] LAB HEMETOLOGY METHOD 10/18/2024 2:55 PM EST [facility] Basophils Absolute 0.03 0.00 - 0.20 K/[facility] LAB HEMETOLOGY METHOD 10/18/2024 2:55 PM EST [facility] Immature Granulocytes Absolute 0.05(H) 0.00 - 0.03 K/[facility] LAB HEMETOLOGY METHOD 10/18/2024 2:55 PM EST [facility] Blood Venous blood specimen / Unknown Venipuncture / Unknown 10/18/2024 11:11 AM EST 10/18/2024 11:11 AM EST us Hayley Rizo PA LAB BLOOD ORDERABLES Final Re sult Performing Organization Address City/[facility]/ZIP Co de Phone Number [facility] [address] [place] [address], [place] [phone] * Sedimentation rate (10/18/2024 11:11 AM EST) Pathologist [facility] Sed Rate 16 0 - 20 mm/hr LAB HEMETOLOGY METHOD 10/18/2024 4:00 PM EST [facility] Blood Venous blood specimen / Unknown Venipuncture / Unknown 10/18/2024 11:11 AM EST 10/18/2024 11:11 AM EST Hayleyleona Rizo PA LAB BLOOD ORDERABLES Final Re sult [facility] [address] [place] [address], [place] [phone] * C reactive protein, high sensitivity (10/18/2024 11:11 AM EST) CRP, High Sensitivity 1.41 mg/L LAB CHEMISTRY METHOD 10/18/2024 3:52 PM EST [facility] Comment: Cardio CRP Relative Risk [...] AM EST Hayley MALDONADO LAB BLOOD ORDERABLES Final Re sult [facility] [address] [place] [address], * Hepatic function panel (10/18/2024 11:11 AM EST) [facility] Total Protein 7.4 6.0 - 8.0 g/dL LAB CHEMISTRY METHOD 10/18/2024 3:53 PM [facility] Albumin 3.7 3.2 - 5.0 g/dL LAB CHEMISTRY METHOD 10/18/2024 3:53 PM [facility] Total Bilirubin 0.8 0.0 - 1.4 mg/dL LAB CHEMISTRY METHOD 10/18/2024 3:53 PM [facility] Bilirubin, Direct 0.1 0.0 - 0.3 mg/dL LAB CHEMISTRY METHOD 10/18/2024 3:53 PM [facility] Bilirubin, Indirect 0.7 0.0 - 1.1 mg/dL LAB CHEMISTRY METHOD 10/18/2024 3:53 PM [facility] ALT (SGPT) 28 10 - 60 unit/L LAB CHEMISTRY METHOD 10/18/2024 3:53 PM [facility] AST (SGOT) 23 10 - 42 unit/L LAB CHEMISTRY METHOD 10/18/2024 3:53 PM EST [facility] Alkaline Phosphatase 68 42 - 121 unit/L LAB CHEMISTRY METHOD 10/18/2024 3:53 PM EST [facility] Blood Venous blood specimen / Unknown Venipuncture / Unknown 10/18/2024 11:11 AM EST 10/18/2024 11:11 AM EST us Hayley MALDONADO LAB BLOOD ORDERABLES Final Re sult [facility] [address] [place] [address], documented in this encounter Visit Diagnoses Diagnosis Autoimmune hepatitis (CMS/HCC) Autoimmune hepatitis documented in this encounter Care Teams Aluminum Fabrication Supervisor Relationship Specialty Start Date End Date Espinoza Infante MD [address] [place] [phone] PCP - General Internal Medicine 10/18/24 documented as of this encounter
--- OUTSIDE RECORDS SUMMARY | 2024-11-12 12:03 | XMS_ITS ---
Author Organization [employer] [facility] Address [address] [facility] [place] [address] Care Team Providers Care Perpetual Inventory Clerk Name Role Phone JUMANA HERNANDEZ Primary Care Provider CHRISTINA WALTERS Unavailable [phone] REASON FOR VISIT CCM Encounters Encounter Location Date Provider Diagnosis [facility] [address] [facility] [address] [place] [address] 08/27/2024 JUMANA HERNANDEZ PLAN OF TREATMENT Next Appt Details Provider Name:CHRISTINA WALTERS, 11/18/2024 11:30:00 AM, [address], [place], [address], Progress Notes * IRVIN SUAZODOB:[birth year] (79 yo M)Acc No.[id number]:08/27/2024 Patient:??LAKEISHA IRVIN PIPPA ID :[id number]?Age:79 Y?Sex:Ma sarthak Address:[address] [place] [address] * true * Date:??
--- OUTSIDE RECORDS SUMMARY | 2024-11-12 12:03 | XMS_ITS ---
Author Organization [employer] [facility] Address [address] [place] [address] Care Team Providers Care Bingo Manager Name Role Phone JUMANA HERNANDEZ Primary Care Provider CHRISTINA WALTERS Unavailable [phone] REASON FOR VISIT CCM - mammo/colonoscopy Encounters Encounter Location Date Provider Diagnosis [facility] [address] [place] [phone] 11/09/2024 JUMANA HERNANDEZ PLAN OF TREATMENT Next Appt Details Provider Name:CHRISTINA WALTERS, 11/18/2024 11:30:00 AM, [address], [place], [address], Progress Notes * IRVIN SUAZODOB:[birth year] (79 yo M)Acc No.[id number]:11/09/2024 Patient:??IRVIN SUAZO PIPPA ID :[id number]?Age:79 Y?Sex:Ma sarthak Address:[address] [place] [address] * * Date:??
--- OUTSIDE RECORDS SUMMARY | 2024-11-12 12:03 | XMS_ITS | Encounter Summary ---
Author Organization [facility] Address [address] [place] [address] Care Team Providers Care Supervisor Mold Construction Name Role Phone Osito Infante MD Primary Care Provider [phone] Reason for Visit * Reason Onset Date Comments Provider Call Back 10/13/2024 Encounter Details Date Type Department Care Team (Late st Contact Info) Description 10/13/2024 Telephone Gastroenterology - [place] [address] [facility] [address] [facility] [place] [address] Henry Morris MD [address] [place] [address] Provider Call Back Social History Tobacco Use [...] 10:30 AM EST Office Visit Gastroenterology - [place] [address] [facility] [address] [facility] [address] [place] [phone] Henry Morris MD [address] [facility] [address] [place] [address] documented as of this encounter Results * Sedimentation rate (10/18/2024 11:11 AM EST) [facility] Sed Rate 16 0 - 20 mm/hr LAB HEMETOLOGY METHOD 10/18/2024 4:00 PM EST [facility] Blood Venous blood specimen / Unknown Venipuncture / Unknown 10/18/2024 11:11 AM EST 10/18/2024 11:11 AM EST us Hayley MALDONADO LAB BLOOD ORDERABLES Final Re sult [facility] [address] [place] [address], [place] [phone] * C reactive protein, high sensitivity (10/18/2024 11:11 AM EST) [facility] CRP, High Sensitivity 1.41 mg/L LAB CHEMISTRY METHOD 10/18/2024 3:52 PM EST [facility] Comment: Cardio CRP Relative [...] MALDONADO LAB BLOOD ORDERABLES Final Re sult [facility] [address] [place] [address], * Hepatic function panel (10/18/2024 11:11 AM EST) [facility] Total Protein 7.4 6.0 - 8.0 g/dL LAB CHEMISTRY METHOD 10/18/2024 3:53 PM [facility] Albumin 3.7 3.2 - 5.0 g/dL LAB CHEMISTRY METHOD 10/18/2024 3:53 PM [facility] Total Bilirubin 0.8 0.0 - 1.4 mg/dL LAB CHEMISTRY METHOD 10/18/2024 3:53 PM [facility] Bilirubin, Direct 0.1 0.0 - 0.3 mg/dL LAB CHEMISTRY METHOD 10/18/2024 3:53 PM [facility] Bilirubin, Indirect 0.7 0.0 - 1.1 mg/dL LAB CHEMISTRY METHOD 10/18/2024 3:53 PM [facility] ALT (SGPT) 28 10 - 60 unit/L LAB CHEMISTRY METHOD 10/18/2024 3:53 PM [facility] AST (SGOT) 23 10 - 42 unit/L LAB CHEMISTRY METHOD 10/18/2024 3:53 PM EST [facility] Alkaline Phosphatase 68 42 - 121 unit/L LAB CHEMISTRY METHOD 10/18/2024 3:53 PM EST [facility] Blood Venous blood specimen / Unknown Venipuncture / Unknown 10/18/2024 11:11 AM EST 10/18/2024 11:11 AM EST us Hayley MALDONADO LAB BLOOD ORDERABLES Final Re sult [facility] [address] [place] [address], documented in this encounter Visit Diagnoses Diagnosis Autoimmune hepatitis (CMS/HCC)- Primary Autoimmune hepatitis documented in this encounter Care Teams Supervisor Mold Construction Relationship Specialty Start Date End Date Osito Infante MD PCP - General Internal Medicine 08/19/18 10/17/24 documented as of this encounter
--- OUTSIDE RECORDS SUMMARY | 2024-11-12 12:03 | XMS_ITS | Encounter Summary ---
Author Organization [facility] Address [address] [address] Phone Care Team Providers Care General Milling Superintendent Name Role Phone MariahStella santos Primary Care Provider [phone] Encounter Details Date Type Department Care Team (Late Contact Info) Description 11/03/2024 Orders Only [facility] [address] [address] Joaquin Guaman MD [facility] [address] Stage 3b chronic kidney disease (HCC); Renal osteodystrophy Social History Tobacco Use Types Packs/Day Years Used Date Smoking Tobacco: Never Alcohol Use Standard Drinks/Week Comments No 0 (1 standard drink = 0.6 oz pur e alcohol) Sex and Gender Information Value Date Recorded Sex Assigned at Not on file Legal Sex Male 5:08 PM EST Gender Identity Not on file Sexual Orientation Not on file documented as of this encounter Plan of Treatment Upcoming Encounters Date Type Department Care Team (Late st Contact Info) Description 02/01/2025 1:15 PM EDT Office Visit [facility] [address] [address] Joaquin Guaman MD [address] [address] documented as of this encounter Visit Diagnoses Diagnosis Stage 3b chronic kidney disease (HCC) Renal osteodystrophy documented in this encounter Care Teams General Milling Superintendent Relationship Specialty Start Date End Date Stella Lemus [address] [facility] [place] [address] PCP - General 08/05/23 documented as of this encounter
--- OUTSIDE RECORDS SUMMARY | 2024-11-12 12:03 | XMS_ITS | Clinical Summary ---
Author Organization LL [address] [place] [address] Address [address] [place] [address] Phone Care Team Providers Care Clinical Engineering Director Name Role Phone Espinoza Infante MD Primary Care Provider [phone] Allergies Active Allergy Reactions Criticality Noted Date Comments Enoxaparin 12/12/2015 Levetiracetam 08/21/2018 Morphine Hives High 11/29/2015 Medications multivitamin with minerals (CENTRUM/CERTAV IT) 18-400 mg-mcg tablet tablet Take by mouth 1 (one) time each day. Active acetaminophen (TYLENOL) 325 mg tablet 325 mg. 6 Active azaTHIOprine (IMURAN) 50 mg tablet Take 1 tablet (50 mg total) by mouth 3 (three) times a day. 4 Active calcium carbonate-vitam in D3 600 mg-12.5 mcg (500 unit) capsule Take by mouth daily. Active cholecalciferol (VITAMIN D-3) 25 mcg (1,000 unit) tablet 1,000 Units. 2 Active doxazosin (CARDURA) 4 mg tablet Take 1 tablet (4 mg total) by mouth at bedtime. Active finasteride (PROSCAR) 5 mg tablet 1 tablet (5 mg total) 1 (one) time each day. 1 Active gabapentin (NEURONTIN) 600 mg tablet Take 1 tablet (600 mg total) by mouth 2 (two) times a day. Active metoprolol tartrate (LOPRESSOR) 25 mg tablet Take 1 tablet (25 mg total) by mouth 2 (two) times a day. 9 Active omega-3 acid ethyl esters (LOVAZA) 1 gram capsule 1 capsule (1,000 mg total) 1 (one) time each day. 0 Active simvastatin (ZOCOR) 40 mg tablet 1 tablet (40 mg total) at bedtime. 7 Active tamsulosin (FLOMAX) 0.4 mg 24 hr capsule 1 capsule (0.4 mg total) 1 (one) time each day. 0 Active warfarin (COUMADIN) 2.5 mg tablet 1 tablet (2.5 mg total). 6 Active lancets lancets ONE TOUCH ULTRASOFT LANCETS Misc USE DIRECTED TO TEST FOUR TIMES DAILY DIRECTED 8 Active glucose blood test strip Glucose Blood (ONE TOUCH ULTRA TEST STRIPS) Strip USE DIRECTED DAILY 9 Active amoxicillin (AMOXIL) 500 mg capsule Take 500 mg by mouth as needed. PRIOR TO DENTIST OR INVASIVE PROCEDURES TAKE 4 CAPS 1 HOUR PRIOR Active nitrofurantoin (MACRODANTIN) 25 mg capsule Take 25 mg by mouth 4 times daily. Active azaTHIOprine (IMURAN) 50 mg tablet Take 3 tablets daily 4 Active metoprolol tartrate (LOPRESSOR) 25 mg tablet Take 0.5 Tablets by mouth 2 times daily. 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 Factor V Leiden 12/01/2023 ARGENIS (obstructive sleep apnea) 12/01/2023 Seizures 12/01/2023 Allergic rhinitis 07/21/2019 Autoimmune hepatitis 07/21/2019 Overview (12/01/2023): 2011 BPH (benign prostatic hyperplasia) 07/21/2019 CAD (coronary [...] AM EST Lab Draw Station - [address] [facility] [address] [facility] [address] [place] [address] Autoimmune hepatitis (CMS/HCC) 10/13/2024 Telephone [facility] - [place] [address] [place] [address] Henry Morris MD Provider Call [...] on file Sexual Orientation Not on file Obstetrics History Last Filed [...] 10:30 AM EST Office Visit [facility] - [place] [address] [facility] [address] [facility] [address] [place] [address] Henry Morris MD [address] [facility] [address] [place] [address] Health Maintenance Due Date Last Done Comments [...] BMP Blood Test 07/27/2025 07/27/2024 Pneumococcal Vaccine: 50+ Years Completed 02/17/2015, 07/06/2010, 09/22/2007 RSV Immunization [...] patient's age to complete this topic Meningococcal B Vacine Aged Out No lo nger eligible based on patient's age to complete [...] Routine 11:11 AM EST Autoimmune hepatitis (CMS/HCC) RENAL FUNCTION PANEL Routine 07/27/2024 8:37 AM EST Stage 3b chronic kidney disease (CMS/HCC) from Last 3 Months or Most Recently Relevant to Health Maintenance Results * (ABNORMAL) CBC auto differential (10/18/2024 11:11 AM EST) WBC 6.6 4.8 - 10.8 K/mcL LAB HEMETOLOGY METHOD 10/18/2024 2:55 PM [facility] RBC 5.10 4.50 - 5.50 M/mcL LAB HEMETOLOGY METHOD 10/18/2024 2:55 PM [facility] Hemoglobin 15.9 13.5 - 17.5 g/dL LAB HEMETOLOGY METHOD 10/18/2024 2:55 PM [facility] Hematocrit 49.4 42.0 - 54.0 % LAB HEMETOLOGY METHOD 10/18/2024 2:55 PM [facility] MCV 96.7 79.0 - 98.0 FL LAB HEMETOLOGY METHOD 10/18/2024 2:55 PM [facility] MCH 31.1 27.0 - 32.0 pcg LAB HEMETOLOGY METHOD 10/18/2024 2:55 PM [facility] MCHC 32.2 32.0 - 37.0 g/dL LAB HEMETOLOGY METHOD 10/18/2024 2:55 PM [facility] RDW 14.7 11.0 - 15.0 % LAB HEMETOLOGY METHOD 10/18/2024 2:55 PM [facility] Platelets 175 130 - 400 K/mcL LAB HEMETOLOGY METHOD 10/18/2024 2:55 PM [facility] MPV 10.6 7.0 - 11.0 FL LAB HEMETOLOGY METHOD 10/18/2024 2:55 PM [facility] NRBC 0.0 <1.0 % LAB HEMETOLOGY METHOD 10/18/2024 2:55 PM [facility] NRBC Absolute 0.00 <0.10 K/mcL LAB HEMETOLOGY METHOD 10/18/2024 2:55 PM [facility] Neutrophils Relative 64.0 % LAB HEMETOLOGY METHOD 10/18/2024 2:55 PM [facility] Lymphocytes Relative 25.6 % LAB HEMETOLOGY METHOD 10/18/2024 2:55 PM [facility] Monocytes Relative 6.2 % LAB HEMETOLOGY METHOD 10/18/2024 2:55 PM [facility] Eosinophils Relative 2.9 % LAB HEMETOLOGY METHOD 10/18/2024 2:55 PM [facility] Basophils Relative 0.5 % LAB HEMETOLOGY METHOD 10/18/2024 2:55 PM [facility] Immature Granulocytes Relative 0.8 % LAB HEMETOLOGY METHOD 10/18/2024 2:55 PM [facility] Neutrophils Absolute 4.25 1.50 - 7.00 K/mcL LAB HEMETOLOGY METHOD 10/18/2024 2:55 PM [facility] Lymphocytes Absolute 1.70 1.00 - 5.00 K/mcL LAB HEMETOLOGY METHOD 10/18/2024 2:55 PM [facility] Monocytes Absolute 0.41 0.20 - 1.00 K/mcL LAB HEMETOLOGY METHOD 10/18/2024 2:55 PM [facility] Eosinophils Absolute 0.19 0.00 - 0.50 K/mcL LAB HEMETOLOGY METHOD 10/18/2024 2:[address] [facility] Basophils Absolute 0.03 0.00 - 0.20 K/mcL LAB HEMETOLOGY METHOD 10/18/2024 2:[address] [facility] Immature Granulocytes Absolute 0.05(H) 0.00 - 0.03 K/mcL LAB HEMETOLOGY METHOD 10/18/2024 2:[address] [facility] Blood Venous blood specimen / Unknown Venipuncture / Unknown 10/18/2024 11:11 AM EST 10/18/2024 11:11 AM EST Hayley MALDONADO LAB BLOOD ORDERABLES Final Re sult Performing Organization Address [facility]/ZIP Co de Phone Number [facility] [address] [place] [address], [place] [phone] * Sedimentation rate (10/18/2024 11:11 AM EST) Pathologist [facility] Sed Rate 16 0 - 20 mm/hr LAB HEMETOLOGY METHOD 10/18/2024 4:[address] [facility] Blood Venous blood specimen / Unknown Venipuncture / Unknown 10/18/2024 11:11 AM EST 10/18/2024 11:11 AM EST Hayley MALDONADO LAB BLOOD ORDERABLES Final Re sult [facility] [address] [place] [address], [place] [phone] * C reactive protein, high sensitivity (10/18/2024 11:11 AM EST) CRP, High Sensitivity 1.41 mg/L LAB CHEMISTRY METHOD 10/18/2024 3:[address] [facility] Comment: Cardio CRP Relative Risk [...] MALDONADO LAB BLOOD ORDERABLES Final Re sult [facility] [address] [place] [address], [place] [phone] * Hepatic function panel (10/18/2024 11:11 AM EST) Total Protein 7.4 6.0 - 8.0 g/dL LAB CHEMISTRY METHOD 10/18/2024 3:53 PM [facility] Albumin 3.7 3.2 - 5.0 g/dL LAB CHEMISTRY METHOD 10/18/2024 3:53 PM [facility] Total Bilirubin 0.8 0.0 - 1.4 mg/dL LAB CHEMISTRY METHOD 10/18/2024 3:53 PM [facility] Bilirubin, Direct 0.1 0.0 - 0.3 mg/dL LAB CHEMISTRY METHOD 10/18/2024 3:53 PM [facility] Bilirubin, Indirect 0.7 0.0 - 1.1 mg/dL LAB CHEMISTRY METHOD 10/18/2024 3:53 PM [facility] ALT (SGPT) 28 10 - 60 unit/L LAB CHEMISTRY METHOD 10/18/2024 3:53 PM [facility] AST (SGOT) 23 10 - 42 unit/L LAB CHEMISTRY METHOD 10/18/2024 3:53 PM [facility] Alkaline Phosphatase 68 42 - 121 unit/L LAB CHEMISTRY METHOD 10/18/2024 3:53 PM [facility] Blood Venous blood specimen / Unknown Venipuncture / Unknown 10/18/2024 11:11 AM EST 10/18/2024 11:11 AM EST Hayley MALDONADO LAB BLOOD ORDERABLES Final Re sult [facility] [address] [place] [address], * (ABNORMAL) Renal function panel (07/27/2024 8:37 AM EST) Sodium 139 133 - 145 mmol/L LAB CHEMISTRY METHOD 07/27/2024 11:07 AM [facility] Potassium 4.6 3.5 - 5.5 mmol/L LAB CHEMISTRY METHOD 07/27/2024 11:07 AM [facility] Chloride 104 96 - 110 mmol/L LAB CHEMISTRY METHOD 07/27/2024 11:07 AM [facility] CO2 29 21 - 32 mmol/L LAB CHEMISTRY METHOD 07/27/2024 11:07 AM [facility] Anion Gap 6 3 - 11 LAB CHEMISTRY METHOD 07/27/2024 11:07 AM [facility] Glucose 114(H) 70 - 100 mg/dL LAB CHEMISTRY METHOD 07/27/2024 11:07 AM [facility] BUN 34(H) 5 - 25 mg/dL LAB CHEMISTRY METHOD 07/27/2024 11:07 AM [facility] Creatinine 2.03(H) 0.70 - 1.30 mg/dL LAB CHEMISTRY METHOD 07/27/2024 11:07 AM [facility] eGFR 32(L) >=60 mL/min/1. 73m2 LAB CHEMISTRY METHOD 07/27/2024 11:07 AM [facility] Comment:Calculation based on the??Chronic Kidney Disease Epidemiology Collaboration (CKD-EPI) equation refit??without adjustment for race. BUN/Creatinine Ratio 16.7 LAB CHEMISTRY METHOD 07/27/2024 11:[address] [facility] Albumin 3.4 3.2 - 5.0 g/dL LAB CHEMISTRY METHOD 07/27/2024 11:[address] [facility] Calcium 9.9 8.5 - 10.5 mg/dL LAB CHEMISTRY METHOD 07/27/2024 11:[address] [facility] Phosphorus 2.9 2.5 - 4.5 mg/dL LAB CHEMISTRY METHOD 07/27/2024 11:[address] [facility] Blood Venous blood specimen / Unknown Venipuncture / Unknown 07/27/2024 8:37 AM EST 07/27/2024 10:02 AM EST us Joaquin Guaman MD LAB BLOOD ORDERABLES Final Re sult [facility] Organization Address City/State/ZIP Co de Phone Number [facility] [address] [place] [address], from Last 3 Months or Most Recently Relevant to Health Maintenance Insurance MEDICARE [facility] Advance Directives Documents on File Type Date Recorded Patient Clinical Technician Expl anation Health Care Decision (hx) 01/06/2012 AD PEREZ DIRECTIVE Health Care Decision (hx) 01/06/2012 AD PEREZ DIRECTIVE Health Care Decision (hx) 01/06/2012 AD PEREZ DIRECTIVE Care Teams Clinical Engineering Director Relationship Specialty Start Date End Date Espinoza Infante MD [address] [place] [address] PCP - General Internal Medicine 10/18/24
== END 2024-11-12 11:49 | disposition home or self-care (01) ==
LOC: HO.ACS 10:57
PROVIDERS: PCP Physician Assistant Medical; Visit Provider Internal Medicine
DX: Z79.01 Long term (current) use of anticoagulants (principal)

== ENCOUNTER → 2024-11-12 10:57 | Outpatient (BNVA) | payer MEDICARE, SELFPAY | PROVIDERS: PCP Physician Assistant Medical; Visit Provider Internal Medicine | DX: I26.99 Other pulmonary embolism without acute cor pulmonale (principal); Z79.01 Long term (current) use of anticoagulants; Z51.81 Encounter for therapeutic drug level monitoring | CPT/HCPCS: 85610; 99211 ==

== ENCOUNTER 2024-12-10 11:25 | Outpatient (AMB) | payer MEDICARE, SELFPAY ==
[2024-12-10 11:39] LABS: Prothrombin Time Whole Bld POC 37.9 sec (11.1-13.5); ~PT, ~INR - Anti Coag Clinic 3.2 (0.9-1.1)
--- NOTE | 2024-12-10 11:50 | MHC.OFFVISCO ---
Intake Intake Visit Reasons: Anticoagulation Allergies lovenox Allergy (Severe, Uncoded 12/10/24 11:31) bleeding morphine Allergy (Severe, Uncoded 12/10/24 11:31) Rash kepra Adverse Reaction (Severe, Uncoded 12/10/24 11:31) Drowsy Medication List - Last Reconciled 12/10/24 by Deepika Payne, RN amoxicillin 2,000 mg PO ONCE PRN azathioprine 150 mg PO DAILY calcium carbonate-vitamin D3 600 mg-10 mcg (400 unit) caps PO DAILY cholecalciferol (vitamin D3) 25 mcg PO DAILY finasteride 5 mg PO DAILY gabapentin 600 mg PO BID metoprolol tartrate 12.5 mg PO BID multivitamin 1 tab PO DAILY nitrofurantoin macrocrystal 100 mg PO .qod omega [id number]-fish oil 1,000 (120-180) mg (Fish Oil) 1 cap PO BID simvastatin 40 mg PO BEDTIME tamsulosin 0.8 mg PO DAILY triamcinolone acetonide 0.1% 1 appl topical DAILY PRN warfarin 2.5 mg See Protocol PO DAILY Nursing Note INR: 3.2 in therapeutic range of 2.5-3.5 Medications and supplements reviewed No changes in health, diet, medications, or supplements, Denies any signs and symptoms of bleeding or bruising or clotting. Bleeding, bruising, clotting discussed Nutritional guidance given Dose: keep same dose of 5mg X 4 days and 7.5mg X 3 days F/U INR: 4 weeks Patient verbalizes understanding of instructions given Anti-Coag Initial Assessment Social Hx Patient Tobacco Use Status: Never used Tobacco alcohol intake: current Alcohol intake frequency: holidays/special occasions only Cardiovascular Hx: HTN Lung Disease HX: DVT/PE and Other Endocrine Hx: Diabetes and Autoimmune disorders Blood Disorder Hx: Hyperlipidemia and Hepatitis Hx: Kidney Disease and Prostate Neurological Hx: Epilepsy/Seizures and Stroke/TIA Cancer HX: No Psych. Illness/Depression: No Coding Level of Care Code Est Patient Level 1 Diagnoses Current use of anticoagulant therapy Z79.01 Assessment & Plan Assessment & Plan (1) Current use of anticoagulant therapy: Code(s): Z79.01 - [facility] (current) use of anticoagulants Category: Medical
--- OUTSIDE RECORDS SUMMARY | 2024-12-10 14:00 | XMS_ITS | Clinical Summary ---
Author Organization [facility] Address [address] [place] [phone] Phone Care Team Providers Care Telephone Triage Nurse Name Role Phone Stella Lemus Primary Care Provider [phone] Allergies Active Allergy Reactions Criticality Noted Date [...] Orders Only [facility] [address] [facility] [address] [place] [address] Joaquin Guaman MD Stage 3b [...] Office Visit [facility] [address] [facility] [address] [place] [address] Joaquin Guaman MD [address] [phone] Health Maintenance Due Date Last Done Comments Pneumococcal Vaccine: 65+ Ye ars (2 of 2 - PCV) 07/06/2011 07/06/2010 Influenza Vaccine (#1) 2024 07/23/2015 Hepatitis B Vaccine Aged Out No longe r eligible based on patient's age to complete this topic Insurance [facility] MEDICARE [facility] MEDICARE Care Teams Telephone Triage Nurse Relationship Specialty Start Date End Date Stella Lemus [address] [place] [address] PCP - General 08/05/23
--- OUTSIDE RECORDS SUMMARY | 2024-12-10 14:00 | XMS_ITS | Clinical Summary ---
Author Organization [address] Address [address] [place] [address] Phone Care Team Providers Care Security Police Name Role Phone Espinoza Infante MD Primary Care Provider Allergies Active Allergy Reactions Criticality Noted Date Comments Enoxaparin GI bleeding,Other,Rash High 12/12/2015 Levetiracetam 08/21/2018 Morphine Hives High 11/29/2015 Medications multivitamin with minerals (CENTRUM/CERTA VIT) 18-400 mg-mcg tablet tablet Take by mouth 1 (one) time each day. Active acetaminophen (TYLENOL) 325 mg tablet 325 mg. 12/07/19 16 Active calcium carbonate-nixon min D3 600 mg-12.5 mcg (500 unit) capsule Take by mouth daily. Active cholecalcifero l (VITAMIN D-3) 25 mcg (1,000 unit) tablet 1,000 Units. 01/14/20 12 Active doxazosin (CARDURA) 4 mg tablet Take 1 tablet (4 mg total) by mouth at bedtime. Active finasteride (PROSCAR) 5 mg tablet 1 tablet (5 mg total) 1 (one) time each day. 05/20/20 11 Active gabapentin (NEURONTIN) 600 mg tablet Take 1 tablet (600 mg total) by mouth 2 (two) times a day. Active metoprolol tartrate (LOPRESSOR) 25 mg tablet Take 1 tablet (25 mg total) by mouth 2 (two) times a day. 07/17/20 09 Active omega-3 acid ethyl esters (LOVAZA) 1 gram capsule 1 capsule (1,000 mg total) 1 (one) time each day. 06/11/20 10 Active simvastatin (ZOCOR) 40 mg tablet 1 tablet (40 mg total) at bedtime. 01/10/20 17 Active tamsulosin (FLOMAX) 0.4 mg 24 hr capsule 1 capsule (0.4 mg total) 1 (one) time each day. 08/02/20 10 Active warfarin (COUMADIN) 2.5 mg tablet 1 tablet (2.5 mg total). 12/11/19 16 Active lancets lancets ONE TOUCH ULTRASOFT LANCETS Misc USE DIRECTED TO TEST FOUR TIMES DAILY DIRECTED 08/13/20 08 Active glucose blood test strip Glucose Blood (ONE TOUCH ULTRA TEST STRIPS) Strip USE DIRECTED DAILY 12/28/19 09 Active nitrofurantoin (MACRODANTIN) 25 mg capsule Take 25 mg by mouth 4 times daily. Active metoprolol tartrate (LOPRESSOR) 25 mg tablet Take 0.5 Tablets by mouth 2 times daily. Active omega-3 fatty acids 1,000 mg capsule TAKE 1 CAPSULE (1,000 mg) BY MOUTH TWICE DAILY 06/11/20 10 Active omega 5-gfv-drs-fish oil (Fish OiL) 1,000 (120-180) mg capsule Take 1 capsule (1,000 mg total) by mouth 2 (two) times a day. 01/02/20 17 Active azaTHIOprine (IMURAN) 50 mg tablet Take 1 tablet (50 mg total) by mouth 3 (three) times a day. 270 each 3 12/07/19 25 Active azaTHIOprine (IMURAN) 50 mg tablet Take 1 tablet (50 mg total) by mouth 3 (three) times a day. 11/03/19 24 025 Discontinued amoxicillin (AMOXIL) 500 mg capsule Take 500 mg by mouth as needed. PRIOR TO DENTIST OR INVASIVE PROCEDURES TAKE 4 CAPS 1 HOUR PRIOR 025 Discontinued azaTHIOprine (IMURAN) 50 mg tablet Take 3 tablets daily 11/11/19 24 025 Discontinued Active Problems Problem Noted Date Diagnosed Date [...] Encounters Date Type Department Care Team Description 12/06/2024 Telephone Gastroenterology [facility] [address] [facility] [address] [place] [phone] Nanci Veras [place] Prior Authorization (Azathioprine 50 mg) 12/06/2024 Telephone Gastroenterology [facility] 175 [facility] 175 [facility] [address] [place] [phone] Henry Morris MD REFILL REQUEST 11/23/2024 10:30 AM EST Office Visit Gastroenterology - [place] [address] [place] [phone] Henry Morris MD Autoimmune hepatitis (CMS/HCC) (Primary Dx) 10/18/2024 11:10 AM EST Lab Draw Station - 175 [facility] [address] [place] [address] Autoimmune hepatitis (CMS/HCC) 10/13/2024 Telephone Gastroenterology [facility] [address] [facility] [address] [place] [address] Henry Morris MD Provider Call [...] / TRANSURETHRAL INCISIO N / DRAINAGE PROSTATE 1997 PROCEDURE: HISTORICAL TURP PROSTATE SURGERY 08/17/2008 PROCEDURE: HISTORICAL PROSTATE SURGERY; COMMENT: Laser Prostatectomy OTHER SURGICAL HISTORY 12/04/2015 PROCEDURE: VENA CAVA FILTER AORTIC VALVE REPLACEMENT 2006 PROCEDURE: HISTORICAL AORTIC VALVE REPL; COMMENT: Bovine Valve CORONARY ARTERY BYPASS GRAFT PROCEDURE: HISTORICAL CABG HERNIA REPAIR PROCEDURE: HISTORICAL HERNIA REPAIR/ING THYROIDECTOMY PROCEDURE: HISTORICAL TOTAL THYROIDECTOMY Medical History Medical History Date Comments Factor V Leiden ([facility]) DX:Fac tor V Leiden (HCC) Seizures ([facility]) DX:Seizures ( HCC) DVT (deep venous thrombosis) ([facility]) DX:DVT (deep venous thrombosis) ([facility]) 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) Aortic valve replaced DX:Aortic valve replaced ARGENIS (obstructive sleep apnea) DX :ARGENIS (obstructive sleep apnea) BPH (benign prostatic hyperplasia) 07/21/2019 DX:BPH (benign prostatic hyperplasia) CKD (chronic kidney disease) stage 3, GFR 30-59 ml/min (CMS/[facility]) DX:CKD (chronic kidney dise ase) stage 3, GFR 30-59 ml/min ([facility]) Hyperlipidemia 07/21/2019 DX:Hyperlipidemi a Hypertension 07/21/2019 DX:Hypertension [...] Cataract 07/21/2019 DX:Cataract Type 2 diabetes mellitus with cataract 9 DX:Type 2 diabetes mellitus with cataract (HCC) [...] Sign Reading Time Taken Comments Blood Pressure 122/70 11/23/2024 10:39 AM EST Pulse 76 11/23/2024 10:39 AM EST Temperature - - Respiratory Rate - - Oxygen Saturation - - Inhaled Oxygen Concentration - - Weight 92.5 kg (204 lb) 11/23/2024 10:39 AM EST Height 165.1 cm (5' 5 ) 11/23/2024 10:39 AM EST Body Mass Index 33.95 11/23/2024 10:39 AM EST Plan of Treatment Upcoming Encounters Date Type Department Care Team (Late st Contact Info) Description 06/07/2025 10:00 AM EDT Office Visit Gastroenterology - [place] [address] [facility] [address] [place] [phone] Henry Morris MD 175 [facility] [address] [place] [address] Health Maintenance Due Date Last Done Comments [...] LAB HEMETOLOGY METHOD 10/18/2024 2:55 PM EST [facility] RBC 5.10 4.50 - 5.50 M/mcL LAB HEMETOLOGY METHOD 10/18/2024 2:55 PM EST [facility] Hemoglobin 15.9 13.5 - 17.5 g/dL LAB HEMETOLOGY METHOD 10/18/2024 2:55 PM [facility] Hematocrit 49.4 42.0 - 54.0 % LAB HEMETOLOGY METHOD 10/18/2024 2:55 PM [facility] MCV 96.7 79.0 - 98.0 FL LAB HEMETOLOGY METHOD 10/18/2024 2:55 PM [facility] MCH 31.1 27.0 - 32.0 pcg LAB HEMETOLOGY METHOD 10/18/2024 2:55 PM [facility] MCHC 32.2 32.0 - 37.0 g/dL LAB HEMETOLOGY METHOD 10/18/2024 2:55 PM [facility] RDW 14.7 11.0 - 15.0 % LAB HEMETOLOGY METHOD 10/18/2024 2:55 PM [facility] Platelets 175 130 - 400 K/mcL LAB HEMETOLOGY METHOD 10/18/2024 2:55 PM [facility] MPV 10.6 7.0 - 11.0 FL LAB HEMETOLOGY METHOD 10/18/2024 2:55 PM [facility] NRBC 0.0 <1.0 % LAB HEMETOLOGY METHOD 10/18/2024 2:55 PM [facility] NRBC Absolute 0.00 <0.10 K/mcL LAB HEMETOLOGY METHOD 10/18/2024 2:55 PM [facility] Neutrophils Relative 64.0 % LAB HEMETOLOGY METHOD 10/18/2024 2:55 PM [facility] Lymphocytes Relative 25.6 % LAB HEMETOLOGY METHOD 10/18/2024 2:55 PM [facility] Monocytes Relative 6.2 % LAB HEMETOLOGY METHOD 10/18/2024 2:55 PM [facility] Eosinophils Relative 2.9 % LAB HEMETOLOGY METHOD 10/18/2024 2:55 PM EST [facility] Basophils Relative 0.5 % LAB HEMETOLOGY METHOD 10/18/2024 2:55 PM [facility] Immature Granulocytes Relative 0.8 % LAB HEMETOLOGY METHOD 10/18/2024 2:55 PM EST [facility] Neutrophils Absolute 4.25 1.50 - 7.00 K/mcL LAB HEMETOLOGY METHOD 10/18/2024 2:55 PM EST [facility] Lymphocytes Absolute 1.70 1.00 - 5.00 K/mcL LAB HEMETOLOGY METHOD 10/18/2024 2:55 PM [facility] Monocytes Absolute 0.41 0.20 - 1.00 K/mcL LAB HEMETOLOGY METHOD 10/18/2024 2:55 PM EST [facility] Eosinophils Absolute 0.19 0.00 - 0.50 K/mcL LAB HEMETOLOGY METHOD 10/18/2024 2:55 PM EST [facility] Basophils Absolute 0.03 0.00 - 0.20 K/mcL LAB HEMETOLOGY METHOD 10/18/2024 2:55 PM [facility] Immature Granulocytes Absolute 0.05(H) 0.00 - 0.03 K/mcL LAB HEMETOLOGY METHOD 10/18/2024 2:55 PM EST [facility] Blood Venous blood specimen / Unknown Venipuncture / Unknown 10/18/2024 11:11 AM EST 10/18/2024 11:11 AM EST us Hayley MALDONADO LAB BLOOD ORDERABLES Final Re sult [facility] [address] [place] [address], * Sedimentation rate (10/18/2024 11:11 AM EST) [facility] Sed Rate 16 0 - 20 mm/hr LAB HEMETOLOGY METHOD 10/18/2024 4:00 PM EST [facility] Blood Venous blood specimen / Unknown Venipuncture / Unknown 10/18/2024 11:11 AM EST 10/18/2024 11:11 AM EST Hayley Rizo [place] LAB BLOOD ORDERABLES Final Re sult Performing Organization Address [facility] Co de Phone Number [facility] [address] [place] [address], [place] [phone] * C reactive protein, high sensitivity (10/18/2024 11:11 AM EST) [facility] CRP, High Sensitivity 1.41 mg/L LAB CHEMISTRY METHOD 10/18/2024 3:52 PM EST [facility] Comment: Cardio CRP Relative [...] Final Re sult Performing Organization Address [facility]/ZIP Co de Phone Number [facility] [address] [place] [address], [place] [phone] * Hepatic function panel (10/18/2024 11:11 AM EST) [facility] Total Protein 7.4 6.0 - 8.0 g/dL LAB CHEMISTRY METHOD 10/18/2024 3:53 PM EST [facility] Albumin 3.7 3.2 - 5.0 g/dL LAB CHEMISTRY METHOD 10/18/2024 3:53 PM [facility] Total Bilirubin 0.8 0.0 - 1.4 mg/dL LAB CHEMISTRY METHOD 10/18/2024 3:53 PM [facility] Bilirubin, Direct 0.1 0.0 - 0.3 mg/dL LAB CHEMISTRY METHOD 10/18/2024 3:53 PM [facility] Bilirubin, Indirect 0.7 0.0 - 1.1 mg/dL LAB CHEMISTRY METHOD 10/18/2024 3:53 PM [facility] ALT (SGPT) 28 10 - 60 unit/L LAB CHEMISTRY METHOD 10/18/2024 3:53 PM [facility] AST (SGOT) 23 10 - 42 unit/L LAB CHEMISTRY METHOD 10/18/2024 3:53 PM [facility] Alkaline Phosphatase 68 42 - 121 unit/L LAB CHEMISTRY METHOD 10/18/2024 3:53 PM [facility] Blood Venous blood specimen / Unknown Venipuncture / Unknown 10/18/2024 11:11 AM EST 10/18/2024 11:11 AM EST us Hayley MALDONADO LAB BLOOD ORDERABLES Final Re sult [facility] [address] [place] [address], * (ABNORMAL) Renal function panel (07/27/2024 8:37 AM EST) Sodium 139 133 - 145 mmol/L LAB CHEMISTRY METHOD 07/27/2024 11:07 AM [facility] Potassium 4.6 3.5 - 5.5 mmol/L LAB CHEMISTRY METHOD 07/27/2024 11:07 AM [facility] Chloride 104 96 - 110 mmol/L LAB CHEMISTRY METHOD 07/27/2024 11:07 AM [facility] CO2 29 21 - 32 mmol/L LAB CHEMISTRY METHOD 07/27/2024 11:07 AM [facility] Anion Gap 6 3 - 11 LAB CHEMISTRY METHOD 07/27/2024 11:07 AM [facility] Glucose 114(H) 70 - 100 mg/dL LAB CHEMISTRY METHOD 07/27/2024 11:07 AM [facility] BUN 34(H) 5 - 25 mg/dL LAB CHEMISTRY METHOD 07/27/2024 11:07 AM [facility] Creatinine 2.03(H) 0.70 - 1.30 mg/dL LAB CHEMISTRY METHOD 07/27/2024 11:07 AM [facility] eGFR 32(L) >=60 mL/min/1. 73m2 LAB CHEMISTRY METHOD 07/27/2024 11:07 AM [facility] Comment:Calculation based on the??Chronic Kidney Disease Epidemiology Collaboration (CKD-EPI) equation refit??without adjustment for race. BUN/Creatinine Ratio 16.7 LAB CHEMISTRY METHOD 07/27/2024 11:07 AM [facility] Albumin 3.4 3.2 - 5.0 g/dL LAB CHEMISTRY METHOD 07/27/2024 11:07 AM [facility] Calcium 9.9 8.5 - 10.5 mg/dL LAB CHEMISTRY METHOD 07/27/2024 11:07 AM [facility] Phosphorus 2.9 2.5 - 4.5 mg/dL LAB CHEMISTRY METHOD 07/27/2024 11:07 AM [facility] Blood Venous blood specimen / Unknown Venipuncture / Unknown 07/27/2024 8:37 AM EST 07/27/2024 10:02 AM EST us Joaquin Guaman MD LAB BLOOD ORDERABLES Final Re sult [facility] [address] [place] [address], from Last 3 Months or Most Recently Relevant to Health Maintenance Insurance MEDICARE [facility] Advance Directives Documents on File Type Date Recorded Patient Stave Cutting Supervisor Expl anation Health Care Decision (hx) 01/06/2012 AD PEREZ DIRECTIVE Health Care Decision (hx) 01/06/2012 AD PEREZ DIRECTIVE Health Care Decision (hx) 01/06/2012 AD PEREZ DIRECTIVE Care Teams Security Police Relationship Specialty Start Date End Date Espinoza Infante MD [address] [place] [phone] PCP - General Internal Medicine 10/18/24
--- OUTSIDE RECORDS SUMMARY | 2024-12-10 14:00 | XMS_ITS ---
Author Organization [email or web address] [facility] Address [address] [place] [address] Care Team Providers Care Channel Machine Operator Name Role Phone INFANTE, JUDISAEED Primary Care Provider [phone] CHRISTINA WALTERS Unavailable [phone] ALLERGIES Allergen (clinical drug ingredient) Drug/Non Drug Allergy documented on EMR Reaction Allergy Type Onset Date Status morphine morphine (uncoded) Unknown Allergy A ctive enoxaparin Lovenox BLEEDS Drug Allergy Active REASON FOR VISIT pt is here for 3 month f/u- pt would like to discuss sleep dr tian and he is hoping to come offoxygen concentrator and had mole removed from [place] [facility] MEDICATIONS Medication SIG (Take, Route, Frequency, Duration) Notes Start Date End Date Status Nitrofurantoin Monohyd Macro 100 MG Oral for 90 Days Not-Taking Doxazosin Mesylate 4 mg TAKE 1 TABLET DA JACINDA Orally Once a day for 90 days Not-Taking Gabapentin 600 MG TAKE 1 TABLET TWICE A DAY for 90 days Active Cyclobenzaprine HCl 5 MG 1 tablet at bed time as needed Orally Once a day for 30 days 03/09/2024 Not-Taking predniSONE 10 MG 4 tab x 2 days 3 tab s x 2 days 2 tabs x 2 days 1 tab x 2 days Orally Once a day for 8 days 03/04/2024 Not-Taking OneTouch Ultra - USE TO TEST DAILY fo r 90 Active Warfarin Sodium 2.5 mg TAKE 1 TO 3 TABLE TS ONCE A DAY DIRECTED BY PRIMARY CARE PHYSICIAN Active OneTouch Delica Plus [id number] - USE DIRECTED TO TEST BLOOD GLUCOSE ONCE EVERY DAY for 90 Active Lancets 30G - check twice a day dx e11.9 for 30 days 08/23/2024 Active Metoprolol Tartrate 25 mg TAKE ONE-HALF (1/2) TABLET TWICE A DAY WITH FOOD Active Finasteride 5 MG 0.5 tablet Orally twice a day for 90 days Active OneTouch Ultra Blue - USE TO TEST BLOOD SUGAR In Vitro DX E11.9 ONCE DAILY for 0 Active Simvastatin 40 mg TAKE 1 TABLET DAILY IN THE EVENING Active Lancets 30G - one lancet in vitro twice daily DX E11.9 for 90 days 07/04/2023 Active Tamsulosin HCl 0.4 mg TAKE 1 CAPSULE DAILY Active Multivitamin - Orally Activ e azaTHIOprine 50 MG as directed Orally three time daily Active Fish Oil 1000 MG 1 capsule Orally Onc e a day for 30 day(s) Active Calcium + D 500-1000-40 MG-UNT-MCG Orally Active SOCIAL HISTORY Tobacco Use: Social History Observation Description Date Details (start date - stop date) Never Smoker NA - NA Sex Assigned At : Social History Observation Description Sex Assigned At Unknown Tobacco Use/Smoking Question Answer Notes Are you a nonsmoker Section Notes: smokes , second hand sm mo VITAL SIGNS Blood pressure systolic 124 mm Hg 11/18/19 25 Blood pressure diastolic 80 mm Hg 025 Heart Rate 61 /min 11/18/2024 Height 66 in 11/18/2024 Weight 212.0 lbs 11/18/2024 BMI 34.21 kg/m2 11/18/2024 Oximetry 95 % 11/18/2024 Encounters Encounter Location Date Provider Diagnosis [facility] [address] [place] [address] 11/18/2024 CHRISTINA WALTERS Type 2 diabetes phuong itus [...] (BMI 30-39.9) E66.9 and BMI 34.0-34.9,adult Z68.34 ASSESSMENTS Encounter Date Diagnosis Assessment Notes Treatment Notes Treatment Clinical Notes Section Notes 11/18/2024 Type 2 diabetes mellitus with diabetic chronic kidney disease (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 Pt PHQ9 8. Discussed SSRI therapy, pt reluctant due to being on too many meds . # Bilateral low back pain: Chronic problem, but overall stable # ARGENIS on CPAP: Recently obtained new CPAP, esteban shows sleeping average 7.5 hours with < 0.2% episodes of apnea. Sees [facility] sleep medicine. Overnight Pulse oximeter ordered. 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 A1C at next visit. Pt intermittenly checks POC are reports fine . has not seen podiatry in quiet some time. Does have some neuropathy # Hyperlipidemia: Continue statin # CKD III. Baseline creaitnine 1.65. Followed by Dr. Deniz Kaba discussed with collaborating physician Alexus Infante who reviewed the assessment and plan. Chart, medications, labs, vital signs reviewed. Dictation was accomplished with the use of [employer] voice recognition software, prone to medical misidentifications and grammatical errors. This is unintentional and the practitioner does try to identify and correct these, but some could still be present. Please do not hesitate to contact practitioner for clarification. All questions answered to patients satisfaction. Patient verbalized understanding of diagnosis and treatments explained. To call sooner prior to next visit it any questions/concerns arise. 11/18/2024 Chronic anticoagulation (ICD-10 - Z79.01) # Depression. Pt PHQ9 8. Discussed SSRI therapy, pt reluctant due to being on too many meds . # Bilateral low back pain: Chronic problem, but overall stable # ARGENIS on CPAP: Recently obtained new CPAP, esteban shows sleeping average 7.5 hours with < 0.2% episodes of apnea. Sees [facility] sleep medicine. Overnight Pulse oximeter ordered. 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 A1C at next visit. Pt intermittenly checks POC are reports fine . has not seen podiatry in quiet some time. Does have some neuropathy # Hyperlipidemia: Continue statin # CKD III. Baseline creaitnine 1.65. Followed by Dr. Deniz Kaba discussed with collaborating physician Alexus Infante who reviewed the assessment and plan. Chart, medications, labs, vital signs reviewed. Dictation was accomplished with the use of [employer] voice recognition software, prone to medical misidentifications and grammatical errors. This is unintentional and the practitioner does try to identify and correct these, but some could still be present. Please do not hesitate to contact practitioner for clarification. All questions answered to patients satisfaction. Patient verbalized understanding of diagnosis and treatments explained. To call sooner prior to next visit it any questions/concerns arise. 11/18/2024 Bilateral low back pain, unspecified chronicity, unspecified whether sciatica present (ICD-10 - M54.50) # Depression. Pt PHQ9 8. Discussed SSRI therapy, pt reluctant due to being on too many meds . # Bilateral low back pain: Chronic problem, but overall stable # ARGENIS on CPAP: Recently obtained new CPAP, esteban shows sleeping average 7.5 hours with < 0.2% episodes of apnea. Sees [facility] sleep medicine. Overnight Pulse oximeter ordered. 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 A1C at next visit. Pt intermittenly checks POC are reports fine . has not seen podiatry in quiet some time. Does have some neuropathy # Hyperlipidemia: Continue statin # CKD III. Baseline creaitnine 1.65. Followed by Dr. Guaman Case discussed with collaborating physician Alexus Infante who reviewed the assessment and plan. Chart, medications, labs, vital signs reviewed. Dictation was accomplished with the use of [employer] voice recognition software, prone to medical misidentifications and grammatical errors. This is unintentional and the practitioner does try to identify and correct these, but some could still be present. Please do not hesitate to contact practitioner for clarification. All questions answered to patients satisfaction. Patient verbalized understanding of diagnosis and treatments explained. To call sooner prior to next visit it any questions/concerns arise. 11/18/2024 ARGENIS on CPAP (ICD-10 - G47.33) # Depression. Pt PHQ9 8. Discussed SSRI therapy, pt reluctant due to being on too many meds . # Bilateral low back pain: Chronic problem, but overall stable # ARGENIS on CPAP: Recently obtained new CPAP, esteban shows sleeping average 7.5 hours with < 0.2% episodes of apnea. Sees [facility] sleep medicine. Overnight Pulse oximeter ordered. 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 A1C at next visit. Pt intermittenly checks POC are reports fine . has not seen podiatry in quiet some time. Does have some neuropathy # Hyperlipidemia: Continue statin # CKD III. Baseline creaitnine 1.65. Followed by Dr. Deniz Kaba discussed with collaborating physician Alexus Infante who reviewed the assessment and plan. Chart, medications, labs, vital signs reviewed. Dictation was accomplished with the use of [employer] voice recognition software, prone to medical misidentifications and grammatical errors. This is unintentional and the practitioner does try to identify and correct these, but some could still be present. Please do not hesitate to contact practitioner for clarification. All questions answered to patients satisfaction. Patient verbalized understanding of diagnosis and treatments explained. To call sooner prior to next visit it any questions/concerns arise. 11/18/2024 Hyperlipidemia, unspecified (ICD-10 - E78.5) # Depression. Pt PHQ9 8. Discussed SSRI therapy, pt reluctant due to being on too many meds . # Bilateral low back pain: Chronic problem, but overall stable # ARGENIS on CPAP: Recently obtained new CPAP, esteban shows sleeping average 7.5 hours with < 0.2% episodes of apnea. Sees [facility] sleep medicine. Overnight Pulse oximeter ordered. 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 A1C at next visit. Pt intermittenly checks POC are reports fine . has not seen podiatry in quiet some time. Does have some neuropathy # Hyperlipidemia: Continue statin # CKD III. Baseline creaitnine 1.65. Followed by Dr. Deniz Kaba discussed with collaborating physician Alexus Infante who reviewed the assessment and plan. Chart, medications, labs, vital signs reviewed. Dictation was accomplished with the use of [employer] voice recognition software, prone to medical misidentifications and grammatical errors. This is unintentional and the practitioner does try to identify and correct these, but some could still be present. Please do not hesitate to contact practitioner for clarification. All questions answered to patients satisfaction. Patient verbalized understanding of diagnosis and treatments explained. To call sooner prior to next visit it any questions/concerns arise. 11/18/2024 Anemia due to vitamin B12 deficiency, unspecified B12 deficiency type (ICD-10 - D51.9) # Depression. Pt PHQ9 8. Discussed SSRI therapy, pt reluctant due to being on too many meds . # Bilateral low back pain: Chronic problem, but overall stable # ARGENIS on CPAP: Recently obtained new CPAP, esteban shows sleeping average 7.5 hours with < 0.2% episodes of apnea. Sees [facility] sleep medicine. Overnight Pulse oximeter ordered. 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 A1C at next visit. Pt intermittenly checks POC are reports fine . has not seen podiatry in quiet some time. Does have some neuropathy # Hyperlipidemia: Continue statin # CKD III. Baseline creaitnine 1.65. Followed by Dr. Deniz Kaba discussed with collaborating physician Alexus Infante who reviewed the assessment and plan. Chart, medications, labs, vital signs reviewed. Dictation was accomplished with the use of [employer] voice recognition software, prone to medical misidentifications and grammatical errors. This is unintentional and the practitioner does try to identify and correct these, but some could still be present. Please do not hesitate to contact practitioner for clarification. All questions answered to patients satisfaction. Patient verbalized understanding of diagnosis and treatments explained. To call sooner prior to next visit it any questions/concerns arise. 11/18/2024 Aortic valve replaced (ICD-10 - Z95.2) # Depression. Pt PHQ9 8. Discussed SSRI therapy, pt reluctant due to being on too many meds . # Bilateral low back pain: Chronic problem, but overall stable # ARGENIS on CPAP: Recently obtained new CPAP, esteban shows sleeping average 7.5 hours with < 0.2% episodes of apnea. Sees [facility] sleep medicine. Overnight Pulse oximeter ordered. 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 A1C at next visit. Pt intermittenly checks POC are reports fine . has not seen podiatry in quiet some time. Does have some neuropathy # Hyperlipidemia: Continue statin # CKD III. Baseline creaitnine 1.65. Followed by Dr. Deniz Kaba discussed with collaborating physician Alexus Infante who reviewed the assessment and plan. Chart, medications, labs, vital signs reviewed. Dictation was accomplished with the use of [employer] voice recognition software, prone to medical misidentifications and grammatical errors. This is unintentional and the practitioner does try to identify and correct these, but some could still be present. Please do not hesitate to contact practitioner for clarification. All questions answered to patients satisfaction. Patient verbalized understanding of diagnosis and treatments explained. To call sooner prior to next visit it any questions/concerns arise. 11/18/2024 Encounter for screening for other disorder (ICD-10 - Z13.89) # Depression. Pt PHQ9 8. Discussed SSRI therapy, pt reluctant due to being on too many meds . # Bilateral low back pain: Chronic problem, but overall stable # ARGENIS on CPAP: Recently obtained new CPAP, esteban shows sleeping average 7.5 hours with < 0.2% episodes of apnea. Sees [facility] sleep medicine. Overnight Pulse oximeter ordered. 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 A1C at next visit. Pt intermittenly checks POC are reports fine . has not seen podiatry in quiet some time. Does have some neuropathy # Hyperlipidemia: Continue statin # CKD III. Baseline creaitnine 1.65. Followed by Dr. Deniz Kaba discussed with collaborating physician Alexus Infante who reviewed the assessment and plan. Chart, medications, labs, vital signs reviewed. Dictation was accomplished with the use of [employer] voice recognition software, prone to medical misidentifications and grammatical errors. This is unintentional and the practitioner does try to identify and correct these, but some could still be present. Please do not hesitate to contact practitioner for clarification. All questions answered to patients satisfaction. Patient verbalized understanding of diagnosis and treatments explained. To call sooner prior to next visit it any questions/concerns arise. 11/18/2024 Depression (ICD-10 - F32.A) # Depression. Pt PHQ9 8. Discussed SSRI therapy, pt reluctant due to being on too many meds . # Bilateral low back pain: Chronic problem, but overall stable # ARGENIS on CPAP: Recently obtained new CPAP, esteban shows sleeping average 7.5 hours with < 0.2% episodes of apnea. Sees [facility] sleep medicine. Overnight Pulse oximeter ordered. 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 A1C at next visit. Pt intermittenly checks POC are reports fine . has not seen podiatry in quiet some time. Does have some neuropathy # Hyperlipidemia: Continue statin # CKD III. Baseline creaitnine 1.65. Followed by Dr. Deniz Kaba discussed with collaborating physician Alexus Infante who reviewed the assessment and plan. [...] to next visit it any questions/concerns arise. 11/18/2024 Obesity (BMI 30-39.9) (ICD-10 - E66.9) # Depression. Pt PHQ9 8. Discussed SSRI therapy, pt reluctant due to being on too many meds . # Bilateral low back pain: Chronic problem, but overall stable # ARGENIS on CPAP: Recently obtained new CPAP, esteban shows sleeping average 7.5 hours with < 0.2% episodes of apnea. Sees [facility] sleep medicine. Overnight Pulse oximeter ordered. 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 A1C at next visit. Pt intermittenly checks POC are reports fine . has not seen podiatry in quiet some time. Does have some neuropathy # Hyperlipidemia: Continue statin # CKD III. Baseline creaitnine 1.65. Followed by Dr. Guaman Case discussed with collaborating physician Alexus Infante who reviewed the assessment and plan. Chart, medications, labs, vital signs reviewed. Dictation was accomplished with the use of [employer] voice recognition software, prone to medical misidentifications and grammatical errors. This is unintentional and the practitioner does try to identify and correct these, but some could still be present. Please do not hesitate to contact practitioner for clarification. All questions answered to patients satisfaction. Patient verbalized understanding of diagnosis and treatments explained. To call sooner prior to next visit it any questions/concerns arise. 11/18/2024 BMI 34.0-34.9,adult (ICD-10 - Z68.34) # Depression. Pt PHQ9 8. Discussed SSRI therapy, pt reluctant due to being on too many meds . # Bilateral low back pain: Chronic problem, but overall stable # ARGENIS on CPAP: Recently obtained new CPAP, esteban shows sleeping average 7.5 hours with < 0.2% episodes of apnea. Sees [facility] sleep medicine. Overnight Pulse oximeter ordered. 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 A1C at next visit. Pt intermittenly checks POC are reports fine . has not seen podiatry in quiet some time. Does have some neuropathy # Hyperlipidemia: Continue statin # CKD III. Baseline creaitnine 1.65. Followed by Dr. Guaman Case discussed with collaborating physician Alexus Infante who reviewed the assessment and plan. Chart, medications, labs, vital signs reviewed. Dictation was accomplished with the use of [employer] voice recognition software, prone to medical misidentifications [...] it any questions/concerns arise. PLAN OF TREATMENT Next Appt Details Provider Name:CHRISTINA WALTERS, 02/24/2025 11:15:00 AM, [address], [place], [address], Progress Notes * IRVIN SUAZO DAVIDDOB:[birth year] (79 yo M)Acc No.[id number]:11/18/2024 Progress Notes Patient:??GRUPODANIELAIRVIN RAIN PIPPA ID Provider:??CHRISTINA WALTERS PA-C :[id number]?Age:79 Y?Sex:Meliza de león Date:11/18/2024 Address:[address] [place] [address] [id number] Pcp:JUMANA INFANTE Subjective: * Chief Complaints: * ?1. Pt is here for 3 mo [facility] f/u- pt would like to discuss sleep dr tian and he is hoping to come off oxygen concentrator and had mole removed from [facility]. * HPI: ?Constitutional:? Irvin is a 79-year-old male with a past medical history of chronic kidney disease stage III, ARGENIS on CPAP, BPH, aortic valve replacement 2006, factor V Leiden, history of DVT with IVC filter placement, autoimmune hepatitis, type 2 diabetes among other diagnoses who presents today for routine follow-up. He has several upcoming appts with his specalist. He had a recent appt with [facility] Sleep medicine- is supposed to have ordered overnight oximeter to see if he can come off of nighttime O2 ?He sees: ?March 14- Dr. Martinez ?End of January- Dr. Guaman ?December- Echocardiogram, follow up March 31 ( [facility]) ?Report depression is slightly under control. Reports he has a short fuse, was reluctant still to see a therapist. * ROS:?Constitutional: Patient denies any excessive fatigue with exercise, no weight loss, no fever and no night sweats ???Eyes: No eye discharge, no itching, no redness. ???Ear nose throat: No sore throat, postnasal drip, runny nose, Sneezing ???Cardiovascular: No chest pain, no shortness of breath, no dyspnea on exertion, no PND, no orthopnea, no irregular pulse ???Respiratory: No chronic cough, no hemoptysis, no sputum, no wheezing ???GI, no diarrhea, no constipation no blood in the stools, no pain associated with eating, no indigestion ???Genitourinary: No painful urination no hesitancy no blood in the urine, Musculoskeletal, no limitations to walking and running, no joint deformity, no joint stiffness, no chronic back pain, no noise with joint movement ???Integumentary, no new skin rash. No new changes in skin moles ???Neurological: No history of seizures, memory loss, No language dysfunction, No inability to concentrate, no localized weakness, no sensation loss, no confusion ???Psychiatric: No depression, no suicidal thoughts, no anxiety ???Endocrine: No polyuria no polyphagia or polydipsia. * Medical History:??Chronic ki dney disease, stage 3b, Essential (primary) hypertension, Anemia in chronic kidney disease, Diabetes mellitus type 2 in nonobese, History of blood clots, Presence of IVC filter, Obstructive sleep apnea, BPH loc w/o ur obs/LUTS, Autoimmune hepatitis, Aortic valve replacement 2016. * Surgical History:??open hear t 2006 , IVC filter 2017 , hernia repair , AVR goal INR 2.5-3.5 , [facility] Jul 2024. * Hospitalization/Major Diagno stic Procedure:??Denies Past Hospitalization. * Family History:??Father: dec eased, diagnosed with Unspecified heart disease.??Mother: .??Friend(s): diagnosed with Unspecified essential hypertension, Unspecified heart disease.??Spouse: diagnosed with Unspecified heart disease.??2 brother(s) , 1 sister(s) - healthy. 1 son(s) , 1 daughter(s) - healthy. .?? * Social History:?Tobacco Use:??Tobacco Use/Smoking??Are you a??nonsmoker.? smokes , second hand smoke. * Medications:??Taking azaTHIO josefina 50 MG Tablet as directed Orally three time daily , Taking Calcium + D 500-1000-40 MG-UNT-MCG Tablet Chewable Orally , Taking Fish Oil 1000 MG Capsule 1 capsule Orally Once a day , Taking Multivitamin - Liquid Orally , Taking Finasteride 5 MG Tablet 0.5 tablet Orally twice a day , Taking OneTouch Ultra Blue - Strip USE TO TEST BLOOD SUGAR In Vitro DX E11.9 ONCE DAILY , Taking Lancets 30G - Miscellaneous one lancet in vitro twice daily DX E11.9 , Taking Simvastatin 40 mg Tablet TAKE 1 TABLET DAILY IN THE EVENING , Taking Tamsulosin HCl 0.4 mg Capsule TAKE 1 CAPSULE DAILY , Taking Metoprolol Tartrate 25 mg Tablet TAKE ONE-HALF (1/2) TABLET TWICE A DAY WITH FOOD , Taking Warfarin Sodium 2.5 mg Tablet TAKE 1 TO 3 TABLETS ONCE A DAY DIRECTED BY PRIMARY CARE PHYSICIAN , Taking OneTouch Ultra - Strip USE TO TEST DAILY , Taking Lancets 30G - Miscellaneous check twice a day dx e11.9 , Taking OneTouch Delica Plus [id number] - Miscellaneous USE DIRECTED TO TEST BLOOD GLUCOSE ONCE EVERY DAY , Taking Gabapentin 600 MG Tablet TAKE 1 TABLET TWICE A DAY , Not-Taking Doxazosin Mesylate 4 mg Tablet TAKE 1 TABLET DAILY Orally Once a day , Not-Taking Nitrofurantoin Monohyd Macro 100 MG Capsule Oral , Not-Taking predniSONE 10 MG Tablet 4 tab x 2 days 3 tabs x 2 days 2 tabs x 2 days 1 tab x 2 days Orally Once a day , Not-Taking Cyclobenzaprine HCl 5 MG Tablet 1 tablet at bedtime as needed Orally Once a day , Medication List reviewed and reconciled with the patient * Allergies:??morphine, Loveno x: BLEEDS - Criticality High. Objective: * Vitals:??HR: 61 /min, BP: 12 4/80 mm Hg, Wt: 212.0 lbs, BMI: 34.21 Index, Ht: 66 in, Oxygen sat %: 95 %. * Examination: ?General Examination: ?General: Well appearing elderly male, well nourished, age appropriate in no acute distress. Speaking in full, clear sentences. ?SKIN: Warm, dry intact. No rashes/lesions. No significant rubor noted of BLE ?HEENT: Normocephalic atraumatic. EOM intact. No nystagmus noted. PERRLA. ?LUNGS: Clear to auscultation bilaterally, no wheezes, rales or rhonchi ?CARDIAC: Regular rate and rhythm, + click, no murmurs, rubs or gallops. ?Abdomen: Soft, nontender, nondistended. No tenderness if all 4 quadrants. Normoactive bowel sounds. No masses palpable. ?Extremities: Diminished DP pulse of RLE. No obvious swelling. No popilteal tenderness. pain with palpation of R medial calf without overlying ecchymosis/rash. ?Neuro: CN II-XI grossly intact. Speaking in full sentences. Hearing intact. Assessment: * Assessment: 1.??Type 2 diabetes mellitus with diabetic chronic kidney disease - E11.22 (Primary)??2.??Chronic anticoagulation - Z79.01??3.??Bilateral low back pain, unspecified chronicity, unspecified whether sciatica present - M54.50??4.??ARGENIS on CPAP - G47.33??5.??Hyperlipidemia, unspecified - E78.5??6.??Anemia due to vitamin B12 deficiency, unspecified B12 deficiency type - D51.9??7.??Aortic valve replaced - Z95.2??8.??Encounter for screening for other disorder - Z13.89??9.??Depression - F32.A??10.??Obesity (BMI 30-39.9) - E66.9??11.??BMI 34.0-34.9,adult - Z68.34?? # Depression. Pt PHQ9 8. Dis cussed SSRI therapy, pt reluctant due to being on too many meds . # Bilateral low back pain: Chronic problem, but overall stable # ARGENIS on CPAP: Recently obtained new CPAP, esteban shows sleeping average 7.5 hours with < 0.2% episodes of apnea. Sees [facility] sleep medicine. Overnight Pulse oximeter ordered. 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 A1C at next visit. Pt intermittenly checks POC are reports fine . has not seen podiatry in quiet some time. Does have some neuropathy # Hyperlipidemia: Continue statin # CKD III. Baseline creaitnine 1.65. Followed by Dr. Guaman Case discussed with collaborating physician Alexus Infante who reviewed the assessment and plan. Chart, medications, labs, vital signs reviewed. Dictation was accomplished with the use of [employer] voice recognition software, prone to medical misidentifications and grammatical errors. This is unintentional and the practitioner does try to identify and correct these, but some could still be present. Please do not hesitate to contact practitioner for clarification. All questions answered to patients satisfaction. Patient verbalized understanding of diagnosis and treatments explained. To call sooner prior to next visit it any questions/concerns arise. Plan: * Treatment: * Images: Billing Information: * Visit Code:?? 90544 Office Visit, Est Pt., Level 4. Modifiers: 25, SA * Procedure Codes:?? Care Plan Details* * Sign off status: Completed true * Provider:??CHRISTINA WALTERS PA-C Date:?? History and Physical Notes * HPI (History of Present Illness) Category Sub-Category Detail Notes Category Not es Constitutional Irvin is a 79-year-old male with a past medical history of chronic kidney disease stage III, ARGENIS on CPAP, BPH, aortic valve replacement 2006, factor V Leiden, history of DVT with IVC filter placement, autoimmune hepatitis, type 2 diabetes among other diagnoses who presents today for routine follow-up. He has several upcoming appts with his specalist. He had a recent appt with [facility] Sleep medicine- is supposed to have ordered overnight oximeter to see if he can come off of nighttime O2 He sees: March 14- Dr. Martinez End of January- Dr. Guaman December- Echocardiogram, follow up March 31 ( [facility]) Report depression is slightly under control. Reports he has a short fuse, was reluctant still to see a therapist Examination Category Sub-Category Detail Notes Category Not es General Examination General: Well appearing elderly male, well nourished, age appropriate in no acute distress. Speaking in full, clear sentences. SKIN: Warm, dry intact. No rashes/lesions. No significant rubor noted of BLE HEENT: Normocephalic atraumatic. EOM intact. No nystagmus noted. PERRLA. LUNGS: Clear to auscultation bilaterally, no wheezes, rales or rhonchi CARDIAC: Regular rate and rhythm, + click, no murmurs, rubs or gallops. Abdomen: Soft, nontender, nondistended. No tenderness if all 4 quadrants. Normoactive bowel sounds. No masses palpable. Extremities: Diminished DP pulse of RLE. No obvious swelling. No popilteal tenderness. pain with palpation of R medial calf without overlying ecchymosis/rash. Neuro: CN II-XI grossly intact. Speaking in full sentences. Hearing intact.
--- OUTSIDE RECORDS SUMMARY | 2024-12-10 14:00 | XMS_ITS ---
Author Organization [facility] Address [address] [place] [address] Care Team Providers Care Curber Name Role Phone JUMANA HERNANDEZ Primary Care Provider [phone] CHRISTINA WALTERS Unavailable [phone] REASON FOR VISIT CCM - colonoscopy Encounters Encounter Location Date Provider Diagnosis [address] [place] [phone] 11/09/2024 JUMANA HERNANDEZ PLAN OF TREATMENT Next Appt Details Provider Name:CHRISTINA WALTERS, 02/24/2025 11:15:00 AM, [address], [place], [address], Progress Notes * IRVIN SUAZODOB:[birth year] (79 yo M)Acc No.[id number]:11/09/2024 Patient:??IRVIN SUAZO PIPPA ID :[id number]?Age:79 Y?Sex:Ma sarthak Address:[address] [place] [address] * true * Date:??
--- OUTSIDE RECORDS SUMMARY | 2024-12-10 14:01 | XMS_ITS | Encounter Summary ---
Author Organization [facility] Address [address] [place] [address] Care Team Providers Care Tension Machine Operator Name Role Phone Espinoza Infante MD Primary Care Provider [phone] Reason for Visit * Reason Comments Autoimmune Hepatitis Encounter Details Date Type Department Care Team (Late st Contact Info) Description 11/23/2024 10:30 AM EST Office Visit Gastroenterology - [place] [address] [facility] [address] [facility] [address] [place] [phone] Henry Morris MD [address] [facility] [address] [place] [address] Autoimmune hepatitis (CMS/HCC) (Primary Dx) Social History Tobacco Use Types Packs/Day Years [...] on file documented as of this encounter Last Filed Vital Signs Vital Sign Reading [...] Mass Index 33.95 11/23/2024 10:39 AM EST documented in this encounter Progress Notes * Henry Morris MD - 11/23/2024 10:30 AM EST Patient in remission on imuran; can return in 6 months with labs * Henry Morris MD - 11/23/2024 10:30 AM EST 79 y/o WM Autoimmune CAH in remission on azathioprine 150 mg per day. Recent labs (10/18/24) WERE ENTIRELY NORMAL. nO NAUSEA, PAIN, FATIGUE. hAD SKIN CANCER ON LEFT CHEEK. PMHH reviewed ROS: no SSCP. Swelling, KNAPP PE: Elderly WM Awake and alert HEENT no icterus Cor and Lungs: clear Abd: soft non-tender no mass or hepatomegaly Extr: neg documented in this encounter Plan of Treatment Upcoming Encounters Date Type Department Care Team (Late st Contact Info) Description 06/07/2025 10:00 AM EDT Office Visit Gastroenterology - [address] [address] Henry Morris MD [address] [place] [address] documented as of this encounter Visit Diagnoses Diagnosis Autoimmune hepatitis (CMS/HCC)- Primary Autoimmune hepatitis documented in this encounter Discontinued Medications Medication Sig Discontinue Reason Start Date End Da te amoxicillin (AMOXIL) 500 mg capsule Take 500 mg by mouth as needed. PRIOR TO DENTIST OR INVASIVE PROCEDURES TAKE 4 CAPS 1 HOUR PRIOR 11/23/2024 documented as of this encounter Historical Medications * This list may reflect changes made after this encounter. omega 9-syy-vxs-fish oil (Fish OiL) 1,000 (120-180) mg capsule Take 1 capsule (1,000 mg total) by mouth 2 (two) times a day. 01/01/2017 added in this encounter Care Teams Tension Machine Operator Relationship Specialty Start Date End Date Espinoza Infante MD [address] [place] [phone] (work) PCP - General Internal Medicine 10/18/24 documented as of this encounter
--- OUTSIDE RECORDS SUMMARY | 2024-12-10 14:01 | XMS_ITS ---
Author Organization [facility] Address [address] [place] [address] Care Team Providers Care Craft Superintendent Name Role Phone HERNANDEZJUMANA TOMAS Primary Care Provider CHRISTINA WALTERS [phone] REASON FOR VISIT Refill - Simvastatin MEDICATIONS Medication SIG (Take, Route, Fr equency, Duration) Notes Start Date End Date Status Simvastatin 40 mg TAKE 1 TABLET DAILY IN THE EVENING Active Encounters Encounter Location Date Provider Diagnosis [facility] [address] [place] [address] 12/06/2024 CHRISTINA WALTERS PLAN OF TREATMENT Medication Medication Name Sig Start Date Stop Date Notes Simvastatin 40 mg TAKE 1 TABLET DAILY IN THE EVENING Next Appt Details Provider Name:CHRISTINA WALTERS, 02/24/2025 11:15:00 AM, [address] [facility], [place], [address], Progress Notes * IRVIN SUAZODOB:[birth year] (79 yo M)Acc No.[id number]:12/06/2024 Patient:??LAKEISHA IRVIN DAS ID :[id number]?Age:79 Y?Sex:Meliza de león Address:[address] [place] [address] * Refills?? Refill Simvastatin Tablet, 40 mg, 90 Tablet, TAKE 1 TABLET DAILY IN THE EVENING, Refills=3 * true * Date:??
--- OUTSIDE RECORDS SUMMARY | 2024-12-10 14:01 | XMS_ITS | Encounter Summary ---
Author Organization [facility] Address [address] [place] [address] Care Team Providers Care Events Manager Name Role Phone Espinoza Infante MD Primary Care Provider [phone] Reason for Visit * Reason Onset Date Comments Prior Authorization 12/06/2024 Azathioprine 50 mg Encounter Details Date Type Department Care Team ([facility] Contact Info) Description 12/06/2024 Telephone Gastroenterology [facility] [address] [facility] [address] [place] [phone] Nanci Veras [place] Prior Authorization (Azathioprine 50 mg) Social History Tobacco Use Types Packs/Day Years [...] Progress Notes * Nanci Veras [place] - 12/06/2024 9:48 AM EDT Approval letter rec'd on 10/13/24 states: Approved 10/13/24 until further notice. Auth # [id number] from [employer] [place] documented in this encounter Plan of Treatment Upcoming Encounters Date Type Department Care Team ([facility] Contact Info) Description 06/07/2025 10:00 AM EDT Office Visit Gastroenterology [facility] [address] [facility] [address] [place] [phone] Henry Morris MD 175 [facility] [address] [place] [address] documented as of this encounter Visit Diagnoses Not on filedocumented in this encounter Care Teams Events Manager Relationship Specialty Start Date End Date Espinoza Infante MD 175 [facility] [address] [place] [address] PCP - General Internal Medicine 10/18/24 documented as of this encounter
--- OUTSIDE RECORDS SUMMARY | 2024-12-10 14:01 | XMS_ITS | Encounter Summary ---
Author Organization [facility] Address [address] [place] [address] Care Team Providers Care Administrative Judge Name Role Phone Espinoza Infante MD Primary Care Provider [phone] Reason for Visit * Reason Onset Date Comments REFILL REQUEST 12/06/2024 Encounter Details Date Type Department Care Team ([facility] st Contact Info) Description 12/06/2024 Telephone Gastroenterology - [place] 175 [facility] 175 [facility] [address] [place] [address] Henry Morris MD [address] [facility] [address] [place] [address] REFILL REQUEST Social History Tobacco Use Types Packs/Day Years [...] on file documented as of this encounter Ordered Prescriptions Prescription Sig Dispense Quantity Refills Last Filled Start Date End Date azaTHIOprine (IMURAN) 50 mg tablet Take 1 tablet (50 mg total) by mouth 3 (three) times a day. 270 each 3 12/06/2024 documented in this encounter Progress Notes * Nanci Veras [place] - 12/07/2024 8:03 AM EDT Sent to mail away. Also rec'd approval for medication from insurance as being covered until furthernotice. Dorothy * Nanci Veras [place] - 12/06/2024 9:22 AM EDT Please auth as covering for Dr Morris. Thanks Dorothy * Bhargavi Villareal - 12/06/2024 9:15 AM EDT Patient calling requesting refill for azaTHIOprine (IMURAN) 50 mg tablet [facility], Patient states may need to apply for tier exception. Requesting multiple refills. MARTHA 11/23/2024 NOV 06/07/2025 documented in this encounter Plan of Treatment Upcoming Encounters Date Type Department Care Team (Late st Contact Info) Description 06/07/2025 10:00 AM EDT Office Visit Gastroenterology - [address] [phone] Henry Morris MD [address] [place] [address] documented as of this encounter Visit Diagnoses Not on filedocumented in this encounter Discontinued Medications Medication Sig Discontinue Reason Start Date End Da te azaTHIOprine (IMURAN) 50 mg tablet Take 3 tablets daily 11/11/2023 12/06/2024 azaTHIOprine (IMURAN) 50 mg tablet Take 1 tablet (50 mg total) by mouth 3 (three) times a day. 11/03/2023 12/06/2024 documented as of this encounter Care Teams Administrative Judge Relationship Specialty Start Date End Date Espinoza Infante MD [address] [address] PCP - General Internal Medicine 10/18/24 documented as of this encounter
== END 2024-12-10 11:56 | disposition home or self-care (01) ==
LOC: HO.ACS 11:25
PROVIDERS: PCP Physician Assistant Medical; Visit Provider Internal Medicine Medical Oncology
DX: Z79.01 Long term (current) use of anticoagulants (principal)

== ENCOUNTER → 2024-12-10 11:25 | Outpatient (BNVA) | payer MEDICARE, SELFPAY | PROVIDERS: PCP Physician Assistant Medical; Visit Provider Internal Medicine Medical Oncology | DX: I26.99 Other pulmonary embolism without acute cor pulmonale (principal); Z79.01 Long term (current) use of anticoagulants; Z51.81 Encounter for therapeutic drug level monitoring | CPT/HCPCS: 85610; 99211 ==

== ENCOUNTER 2025-01-07 10:57 | Outpatient (AMB) | payer MEDICARE, SELFPAY ==
--- NOTE | 2025-01-07 11:10 | MHC.OFFVISCO ---
Intake Intake Visit Reasons: Anticoagulation Allergies lovenox Allergy (Severe, Uncoded 01/07/25 10:58) bleeding morphine Allergy (Severe, Uncoded 01/07/25 10:58) Rash kepra Adverse Reaction (Severe, Uncoded 01/07/25 10:58) Drowsy Medication List - Last Reconciled 01/07/25 by Sultana Romero RN amoxicillin 2,000 mg PO ONCE PRN azathioprine 150 mg PO DAILY calcium carbonate-vitamin D3 600 mg-10 mcg (400 unit) caps PO DAILY cholecalciferol (vitamin D3) 25 mcg PO DAILY finasteride 5 mg PO DAILY gabapentin 600 mg PO BID metoprolol tartrate 12.5 mg PO BID multivitamin 1 tab PO DAILY nitrofurantoin macrocrystal 100 mg PO .qod nitrofurantoin monohyd/m-cryst 100 mg caps PO omega 2-ack-ayk-fish oil 1,000 (120-180) mg (Fish Oil) 1 cap PO BID simvastatin 40 mg PO BEDTIME tamsulosin 0.8 mg PO DAILY triamcinolone acetonide 0.1% 1 appl topical DAILY PRN warfarin 2.5 mg See Protocol PO DAILY Nursing Note INR: 3.4 in therapeutic range 2.5-3.5 Medications and supplements reviewed No changes in health, diet, medications, or supplements, Denies any signs and symptoms of bleeding or bruising or clotting. Bleeding, bruising, clotting discussed Nutritional guidance given - KEEP UP WEEKLY GREENS - COOKED GREENS LOWER MORE THAN RAW Dose: KEEP SAME DOSE 7.5MG X 3 DAYS 5MG X 4 DAYS F/U INR: 1 MONTH Patient verbalizes understanding of instructions given Anti-Coag Initial Assessment Social Hx Patient Tobacco Use Status: Never used Tobacco alcohol intake: current Alcohol intake frequency: holidays/special occasions only Cardiovascular Hx: HTN Lung Disease HX: DVT/PE and Other Endocrine Hx: Diabetes and Autoimmune disorders Blood Disorder Hx: Hyperlipidemia and Hepatitis Hx: Kidney Disease and Prostate Neurological Hx: Epilepsy/Seizures and Stroke/TIA Cancer HX: No Psych. Illness/Depression: No Coding Level of Care Code Est Patient Level 1 Diagnoses Current use of anticoagulant therapy Z79.01 Results AMB INR Fingerstick AMB INR Fingerstick 3.4 Last Edit by Sultana Romero RN on 01/07/25 11:07 MANUAL ENTRY Assessment & Plan Assessment & Plan (1) Current use of anticoagulant therapy: Code(s): Z79.01 - jail (current) use of anticoagulants Category: Medical
[2025-01-07 11:15] LABS: Prothrombin Time Whole Bld POC 41.4 sec (11.1-13.5); ~PT, ~INR - Anti Coag Clinic 3.4 (0.9-1.1)
--- OUTSIDE RECORDS SUMMARY | 2025-01-07 12:01 | XMS_ITS | Clinical Summary ---
Author Organization [address] Address [address] [place] [address] Phone Care Team Providers Care Squirrel Worker Name Role Phone Espinoza Infante MD Primary Care Provider [phone] Allergies Active Allergy Reactions Criticality Noted Date Comments Enoxaparin GI bleeding,Other,Rash High 12/12/2015 Levetiracetam 08/21/2018 Morphine Hives High 11/29/2015 Medications multivitamin with minerals (CENTRUM/CERTAV IT) 18-400 mg-mcg tablet tablet Take by mouth 1 (one) time each day. Active acetaminophen (TYLENOL) 325 mg tablet 325 mg. 6 Active calcium carbonate-vitam in D3 600 mg-12.5 [...] STRIPS) Strip USE DIRECTED DAILY 9 Active nitrofurantoin (MACRODANTIN) 25 mg capsule Take 25 mg by mouth 4 times daily. Active metoprolol tartrate (LOPRESSOR) 25 mg tablet Take 0.5 Tablets by mouth 2 times daily. Active omega-3 fatty acids 1,000 mg capsule TAKE 1 CAPSULE (1,000 mg) BY MOUTH TWICE DAILY 0 Active omega 9-vmw-kyp-fish oil (Fish OiL) 1,000 (120-180) mg capsule Take 1 capsule (1,000 mg total) by mouth 2 (two) times a day. 7 Active azaTHIOprine (IMURAN) 50 mg tablet Take 1 tablet (50 mg total) by mouth 2 (two) times a day. 270 each 3 5 Active azaTHIOprine (IMURAN) 50 mg tablet Take 1 tablet (50 mg total) by mouth 3 (three) times a day. 270 each 3 5 01/04/20 25 Discontinu ed(Reorder ) Active Problems Problem Noted Date Diagnosed Date Aortic valve replaced 12/01/2023 CKD (chronic kidney disease) stage 3, GFR 30-59 ml/min ([facility] V24, [facility] V28) 12/01/2023 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[facility] [place], [facility] V28) 12/01/2023 Factor V Leiden ([facility] [place]24) 12/01/2023 ARGENIS (obstructive sleep apnea) 12/01/2023 Seizures ([facility] [place], [facility] V28) 12/01/2023 Allergic rhinitis 07/21/2019 Autoimmune hepatitis ([facility] [place], [facility] V28) 07/21/2019 Overview (12/01/2023): 2012 BPH (benign prostatic hyperplasia) 07/21/2019 CAD (coronary artery disease) 07/21/2019 Overview (12/01/2023): CABG Carotid artery stenosis 07/21/2019 Overview (12/01/2023): Bilateral Cataract 07/21/2019 Chronic venous insufficiency 07/21/2019 Hyperlipidemia 07/21/2019 Hypertension 07/21/2019 Interstitial lung disease ([facility] V24, [facility] V28) 07/21/2019 Nephrolithiasis 07/21/2019 Type 2 diabetes mellitus ([facility] V24, [facility] V 28) 07/21/2019 DM (diabetes mellitus), type 2 with peripheral vascular complications ([facility] V24, [facility] V28) 07/21/2019 DM (diabetes mellitus), type 2 with renal complications ([facility] V24, [facility] V28) 07/21/2019 Type 2 diabetes mellitus wit h cataract ([facility] V24, [facility] V28) 07/21/2019 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 Aneurysm of ascending aorta ([facility] V24) 2016 Iron deficiency anemia 12/12/2015 Encounters Date Type Department Care Team Description 12/06/2024 Telephone Gastroenterology [facility] [address] [facility] [address] [place] [phone] Nanci Veras [place] Prior Authorization (Azathioprine 50 mg) 12/06/2024 Telephone Gastroenterology [facility] [address] [facility] [address] [address] Henry Morris MD REFILL REQUEST 11/23/2024 10:30 AM EST Office Visit Gastroenterology [facility] [address] [facility] [address] [address] Henry Morris MD Autoimmune hepatitis (CMS/HCC V24, CMS/HCC V28) (Primary Dx) 10/18/2024 11:10 AM EST Lab Draw Station - [address] [place] [address] Autoimmune hepatitis ([facility]/HCC V24, CMS/HCC V28) 10/13/2024 Telephone Gastroenterology - [place] [address] [place] [address] Henry Morris MD Provider Call [...] Medical History Date Comments Factor V Leiden ([facility] V24) DX :Factor V Leiden (HCC) Seizures (CMS/HCC V24, CMS/HCC V28) DX:Seizures (HCC) DVT (deep venous thrombosis) (CMS/[facility] V24, [facility] V28) DX:DVT (deep venous thrombos is) (HCC) 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CMS/HCC V24, CMS/HCC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 (HCC) Aortic valve replaced DX:Aortic valve replaced ARGENIS (obstructive sleep apnea) DX :ARGENIS (obstructive sleep apnea) BPH (benign prostatic hyperplasia) 07/21/2019 DX:BPH (benign prostatic hyperplasia) CKD (chronic kidney disease) stage 3, GFR 30-59 ml/min ([facility]/HCC V24, [facility] V28) DX:CKD (chronic kidney disea se) stage 3, GFR 30-59 ml/min ([facility]) Hyperlipidemia 07/21/2019 DX:Hyperlipidemi a Hypertension 07/21/2019 DX:Hypertension CAD (coronary artery disease) 07/21/2019 DX :CAD (coronary artery disease); COMMENT: CABG DM (diabetes mellitus), type 2 with renal complications ([facility]/HCC V24, [facility] V28) 07/21/2019 DX:DM (diabetes mellitus), t ype 2 with renal complications (HCC) Nephrolithiasis 07/21/2019 DX:Nephrolithias is Autoimmune hepatitis ([facility]/HC C V24, [facility]/HCC V28) 07/21/2019 DX:Autoimmune hepatitis (HCC ) Interstitial lung disease (C MS/HCC V24, [facility] V28) 07/21/2019 DX:Interstitial lung disease (HCC) Allergic rhinitis 07/21/2019 DX:Allergic rh initis Cataract 07/21/2019 DX:Cataract Type 2 diabetes mellitus wit h cataract ([facility]/HCC V24, [facility] V28) 07/21/2019 DX:Type 2 diabetes mellitus with cataract (HCC) Chronic venous insufficiency 07/21/2019 DX: Chronic venous insufficiency DM (diabetes mellitus), type 2 with peripheral vascular complications ([facility]/HCC V24, [facility] V28) 07/21/2019 DX:DM (diabetes mellitus), type 2 with peripheral vascular complications (HCC) Carotid artery stenosis 07/21/2019 DX:Carot id artery stenosis; COMMENT: Bilateral History of DVT (deep vein thrombosis) 08/21/2018 DX:History of DVT (deep vein thrombosis) 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:Post -thrombotic syndrome Aneurysm of ascending aorta ([facility] V24) 07/28/2017 DX:Aneurysm of ascending aor ta (HCC) Family History Medical History Relation Name [...] 10:00 AM EDT Office Visit Gastroenterology - [place] [address] [facility] [address] [facility] [address] [place] [phone] Henry Morris MD [address] [facility] [address] [place] [address] Health Maintenance Due Date Last Done Comments [...] 09/07/2022 Medicare Annual Wellness Visit 11/27/2023 11/26/2022 COVID-19 Vaccine (8 - Moderna risk season) 2025 08/10/2024, 07/24/2023, 06/10/2022, Additional history exists Diabetes: Annual GFR (Glomerular Filtration Rate) 07/27/2025 07/27/2024 Hypertension/CHF/CAD Annual BMP Blood Test 07/27/2025 07/27/2024 Pneumococcal Vaccine: 50+ Years Completed 02/17/2015, 07/06/2010, 09/22/2007 RSV Immunization Adult Patients Completed 09/08/2023 Influenza Vaccine Completed 07/13/2024, , 07/04/2022, Additional history exists HIB Vaccines Aged Out [...] age to complete this topic Meningococcal B Vaccine Aged Out No l onger eligible based on patient's age to complete this topic RSV Immunization Patients Under 20 months Aged Out No longer eligible based on patient's age to complete this topic Varicella Vaccines Aged Out No longer eligible based on patient's age to complete this topic Procedures Procedure Name Priority Date/Time Associated Diagnosis Comments CBC WITH AUTO DIFFERENTIAL Routine 10/18/2024 11:11 AM EST Autoimmune hepatitis ([facility] V24, [facility] V28) CBC AND DIFFERENTIAL Routine 10/18/2024 11:11 AM EST Autoimmune hepatitis ([facility] V24, [facility] V28) SEDIMENTATION RATE Routine 10/18/2024 11 :11 AM EST Autoimmune hepatitis ([facility] V24, [facility] V28) C REACTIVE PROTEIN, HIGH SENSITIVITY Routine 10/18/2024 11:11 AM EST Autoimmune hepatitis (CMS/HCC V24, CMS/HCC V28) HEPATIC FUNCTION PANEL Routine 11:11 AM EST Autoimmune hepatitis (CMS/HCC V24, CMS/HCC V28) RENAL FUNCTION PANEL Routine 07/27/2024 8:37 AM EST Stage 3b chronic kidney disease (CMS/HCC V24, CMS/HCC V28) from Last 3 Months or Most Recently Relevant to Health Maintenance Results * (ABNORMAL) CBC auto differential (10/18/2024 11:11 AM EST) WBC 6.6 4.8 - 10.8 K/mcL LAB HEMETOLOGY METHOD 10/18/2024 2:55 PM [facility] RBC 5.10 4.50 - 5.50 M/mcL LAB HEMETOLOGY METHOD 10/18/2024 2:55 PM [facility] Hemoglobin 15.9 13.5 - 17.5 g/dL LAB HEMETOLOGY METHOD 10/18/2024 2:55 PM [facility] Hematocrit 49.4 42.0 - 54.0 % LAB HEMETOLOGY METHOD 10/18/2024 2:55 PM [facility] MCV 96.7 79.0 - 98.0 FL LAB HEMETOLOGY METHOD 10/18/2024 2:55 PM [facility] MCH 31.1 27.0 - 32.0 pcg LAB HEMETOLOGY METHOD 10/18/2024 2:55 PM [facility] MCHC 32.2 32.0 - 37.0 g/dL LAB HEMETOLOGY METHOD 10/18/2024 2:55 PM [facility] RDW 14.7 11.0 - 15.0 % LAB HEMETOLOGY METHOD 10/18/2024 2:55 PM [facility] Platelets 175 130 - 400 K/mcL LAB HEMETOLOGY METHOD 10/18/2024 2:55 PM [facility] MPV 10.6 7.0 - 11.0 FL LAB HEMETOLOGY METHOD 10/18/2024 2:55 PM [facility] NRBC 0.0 <1.0 % LAB HEMETOLOGY METHOD 10/18/2024 2:55 PM [facility] NRBC Absolute 0.00 <0.10 K/mcL LAB HEMETOLOGY METHOD 10/18/2024 2:55 PM [facility] Neutrophils Relative 64.0 % LAB HEMETOLOGY METHOD 10/18/2024 2:55 PM [facility] Lymphocytes Relative 25.6 % LAB HEMETOLOGY METHOD 10/18/2024 2:55 PM [facility] Monocytes Relative 6.2 % LAB HEMETOLOGY METHOD 10/18/2024 2:55 PM [facility] Eosinophils Relative 2.9 % LAB HEMETOLOGY METHOD 10/18/2024 2:55 PM [facility] Basophils Relative 0.5 % LAB HEMETOLOGY METHOD 10/18/2024 2:55 PM [facility] Immature Granulocytes Relative 0.8 % LAB HEMETOLOGY METHOD 10/18/2024 2:55 PM [facility] Neutrophils Absolute 4.25 1.50 - 7.00 K/mcL LAB HEMETOLOGY METHOD 10/18/2024 2:55 PM [facility] Lymphocytes Absolute 1.70 1.00 - 5.00 K/mcL LAB HEMETOLOGY METHOD 10/18/2024 2:55 PM [facility] Monocytes Absolute 0.41 0.20 - 1.00 K/mcL LAB HEMETOLOGY METHOD 10/18/2024 2:55 PM [facility] Eosinophils Absolute 0.19 0.00 - 0.50 K/mcL LAB HEMETOLOGY METHOD 10/18/2024 2:55 PM EST [facility] Basophils Absolute 0.03 0.00 - 0.20 K/[facility] LAB HEMETOLOGY METHOD 10/18/2024 2:55 PM EST [facility] Immature Granulocytes Absolute 0.05(H) 0.00 - 0.03 K/[facility] LAB HEMETOLOGY METHOD 10/18/2024 2:55 PM EST [facility] Blood Venous blood specimen / Unknown Venipuncture / Unknown 10/18/2024 11:11 AM EST 10/18/2024 11:11 AM EST Hayley MALDONADO LAB BLOOD ORDERABLES Final Re sult Performing Organization Address City/[facility]/ZIP Co de Phone Number [facility] [address] [place] [address], [place] [phone] * Sedimentation rate (10/18/2024 11:11 AM EST) Sed Rate 16 0 - 20 mm/hr LAB HEMETOLOGY METHOD 10/18/2024 4:00 PM EST [facility] Blood Venous blood specimen / Unknown Venipuncture / Unknown 10/18/2024 11:11 AM EST 10/18/2024 11:11 AM EST Hayley MALDONADO LAB BLOOD ORDERABLES Final Re sult [facility] [address] [place] [address], [place] [phone] * C reactive protein, high sensitivity (10/18/2024 11:11 AM EST) CRP, High Sensitivity 1.41 mg/L LAB CHEMISTRY METHOD 10/18/2024 3:52 PM EST [facility] Comment: Cardio CRP Relative Risk Categories [...] MALDONADO LAB BLOOD ORDERABLES Final Re sult [facility] [address] [place] [address], * Hepatic function panel (10/18/2024 11:11 AM [...] 10/18/2024 3:53 PM [facility] Alkaline Phosphatase 68 42 - 121 unit/L LAB CHEMISTRY METHOD 10/18/2024 3:53 PM [facility] Blood Venous blood specimen / Unknown Venipuncture / Unknown 10/18/2024 11:11 AM EST 10/18/2024 11:11 AM EST us Hayley MALDONADO LAB BLOOD ORDERABLES Final Re sult [facility] [address] [place] [address], * (ABNORMAL) Renal function panel (07/27/2024 8:37 AM EST) Sodium 139 133 - 145 mmol/L LAB CHEMISTRY METHOD 07/27/2024 11:07 AM [facility] Potassium 4.6 3.5 - 5.5 mmol/L LAB CHEMISTRY METHOD 07/27/2024 11:07 AM [facility] Chloride 104 96 - 110 mmol/L LAB CHEMISTRY METHOD 07/27/2024 11:07 AM [facility] CO2 29 21 - 32 mmol/L LAB CHEMISTRY METHOD 07/27/2024 11:07 AM [facility] Anion Gap 6 3 - 11 LAB CHEMISTRY METHOD 07/27/2024 11:07 AM [facility] Glucose 114(H) 70 - 100 mg/dL LAB CHEMISTRY METHOD 07/27/2024 11:07 AM [facility] BUN 34(H) 5 - 25 mg/dL LAB CHEMISTRY METHOD 07/27/2024 11:07 AM [facility] Creatinine 2.03(H) 0.70 - 1.30 mg/dL LAB CHEMISTRY METHOD 07/27/2024 11:07 AM [facility] eGFR 32(L) >=60 mL/min/1. 73m2 LAB CHEMISTRY METHOD 07/27/2024 11:07 AM [facility] Comment:Calculation based on the??Chronic Kidney Disease Epidemiology Collaboration (CKD-EPI) equation refit??without adjustment for race. BUN/Creatinine Ratio 16.7 LAB CHEMISTRY METHOD 07/27/2024 11:07 AM EST [facility] Albumin 3.4 3.2 - 5.0 g/dL LAB CHEMISTRY METHOD 07/27/2024 11:07 AM EST [facility] Calcium 9.9 8.5 - 10.5 mg/dL LAB CHEMISTRY METHOD 07/27/2024 11:07 AM [facility] Phosphorus 2.9 2.5 - 4.5 mg/dL LAB CHEMISTRY METHOD 07/27/2024 11:07 AM [facility] Blood Venous blood specimen / Unknown Venipuncture / Unknown 07/27/2024 8:37 AM EST 07/27/2024 10:02 AM EST Joaquin Guaman MD LAB BLOOD ORDERABLES Final Re sult [facility] Organization Address City/State/ZIP Co de Phone Number [facility] [address] [place] [address], from Last 3 Months or Most Recently Relevant to Health Maintenance Insurance MEDICARE [facility] Advance Directives Documents on File Type Date Recorded 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
--- OUTSIDE RECORDS SUMMARY | 2025-01-07 12:01 | XMS_ITS ---
Author Organization [employer] [facility] Address [address] [place] [address] Care Team Providers Care Dental Service Chief Name Role Phone INFANTE, JUDISAEED Primary Care Provider CHRISTINA WALTERS Unavailable [phone] ALLERGIES Allergen (clinical drug ingredient) Drug/Non Drug Allergy documented on EMR Reaction Allergy Type Onset Date Status morphine morphine (uncoded) Unknown Allergy A ctive enoxaparin Lovenox BLEEDS Drug Allergy Active REASON FOR VISIT pt is here for 3 month f/u- pt would like to discuss sleep dr tian and he is hoping to come offoxygen concentrator and had mole removed from [facility] [facility] MEDICATIONS Medication SIG (Take, Route, Frequency, [...] PRIMARY CARE PHYSICIAN Active OneTouch Delica Plus [id number] - USE DIRECTED TO TEST BLOOD GLUCOSE [...] 11/18/2024 Encounters Encounter Location Date Provider Diagnosis [facility] [address] [place] [address] 11/18/2024 CHRISTINA WALTERS Type 2 diabetes phuong [...] with < 0.2% episodes of apnea. Sees [facility] sleep medicine. Overnight Pulse oximeter ordered. # [...] Dictation was accomplished with the use of [employer] voice recognition software, prone to medical misidentifications [...] with < 0.2% episodes of apnea. Sees [facility] sleep medicine. Overnight Pulse oximeter ordered. # [...] Dictation was accomplished with the use of [employer] voice recognition software, prone to medical misidentifications [...] with < 0.2% episodes of apnea. Sees [facility] sleep medicine. Overnight Pulse oximeter ordered. # [...] Dictation was accomplished with the use of [employer] voice recognition software, prone to medical misidentifications [...] with < 0.2% episodes of apnea. Sees [facility] sleep medicine. Overnight Pulse oximeter ordered. # [...] Dictation was accomplished with the use of [employer] voice recognition software, prone to medical misidentifications [...] with < 0.2% episodes of apnea. Sees [facility] sleep medicine. Overnight Pulse oximeter ordered. # [...] Dictation was accomplished with the use of [employer] voice recognition software, prone to medical misidentifications [...] with < 0.2% episodes of apnea. Sees [facility] sleep medicine. Overnight Pulse oximeter ordered. # [...] Dictation was accomplished with the use of [employer] voice recognition software, prone to medical misidentifications [...] with < 0.2% episodes of apnea. Sees [facility] sleep medicine. Overnight Pulse oximeter ordered. # [...] Dictation was accomplished with the use of [employer] voice recognition software, prone to medical misidentifications [...] with < 0.2% episodes of apnea. Sees [facility] sleep medicine. Overnight Pulse oximeter ordered. # [...] Dictation was accomplished with the use of [employer] voice recognition software, prone to medical misidentifications [...] with < 0.2% episodes of apnea. Sees [facility] sleep medicine. Overnight Pulse oximeter ordered. # [...] with < 0.2% episodes of apnea. Sees [facility] sleep medicine. Overnight Pulse oximeter ordered. # [...] Dictation was accomplished with the use of [employer] voice recognition software, prone to medical misidentifications [...] with < 0.2% episodes of apnea. Sees [facility] sleep medicine. Overnight Pulse oximeter ordered. # [...] Dictation was accomplished with the use of [employer] voice recognition software, prone to medical misidentifications [...] WALTERS, 02/24/2025 11:15:00 AM, [address], [place], [address], Progress Notes * IRVIN SUAZO DAVIDDOB:[birth year] (79 yo M)Acc No.[id number]:11/18/2024 Progress Notes Patient:??GRUPODANIELAIRVIN RAIN PIPPA ID Provider:??CHRISTINA WALTERS PA-C :[id number]?Age:79 Y?Sex:Meliza de león Date:11/18/2024 Address:[address] [place] [address] [address] [facility] Pcp:JUMANA NIFANTE Subjective: * Chief Complaints: * ?1. Pt is here for 3 mo [facility] f/u- pt would like to discuss sleep dr tian and he is hoping to come off oxygen concentrator and had mole removed from [facility]. * HPI: ?Constitutional:? Irvin is a [...] specalist. He had a recent appt with [facility] Sleep medicine- is supposed to have ordered overnight oximeter to see if he can come off of nighttime O2 ?He sees: ?March 14- Dr. Martinez ?End of January- Dr. Guaman ?December- Echocardiogram, follow up March 31 ( [facility]) ?Report depression is slightly under [...] dx e11.9 , Taking OneTouch Delica Plus [id number] - Miscellaneous USE DIRECTED TO TEST BLOOD [...] with < 0.2% episodes of apnea. Sees [facility] sleep medicine. Overnight Pulse oximeter ordered. # [...] Dictation was accomplished with the use of [employer] voice recognition software, prone to medical misidentifications [...] * Images: Billing Information: * Visit Code:?? [id number] Office Visit, Est Pt., Level 4. Modifiers: [...] specalist. He had a recent appt with [facility] Sleep medicine- is supposed to have ordered overnight oximeter to see if he can come off of nighttime O2 He sees: March 14- Dr. Martinez End of January- Dr. Guaman December- Echocardiogram, follow up March 31 ( [facility]) Report depression is slightly under [...]
--- OUTSIDE RECORDS SUMMARY | 2025-01-07 12:01 | XMS_ITS ---
Author Organization [employer] [facility] Address [address] [place] [address] Care Team Providers Care Golf Sales Manager Name Role Phone JUMANA HERNANDEZ Primary Care Provider CHRISTINA WALTERS Unavailable [phone] REASON FOR VISIT CCM - colonoscopy Encounters Encounter Location Date Provider Diagnosis [address] [place] [phone] 11/09/2024 JUMANA HERNANDEZ PLAN OF TREATMENT Next Appt Details Provider Name:CHRISTINA WALTERS, 02/24/2025 11:15:00 AM, [address], [place], [address], Progress Notes * IRVIN SUAZODOB:[birth year] (79 yo M)Acc No.[id number]:11/09/2024 Patient:??LAKEISHA IRVIN PIPPA ID :[id number]?Age:79 Y?Sex:Ma sarthak Address[address] [address] * true * Date:??
--- OUTSIDE RECORDS SUMMARY | 2025-01-07 12:01 | XMS_ITS | Clinical Summary ---
Author Organization [facility] Address [address] [place] [id number] Phone Care Team Providers Care Manager Child Name Role Phone Stella Lemus Primary Care Provider [phone] Allergies Active Allergy Reactions Criticality Noted Date [...] Orders Only [facility] [address] [facility] [address] [place] [address] Joaquin Guaman MD Stage 3b chronic kidney disease (HCC); Renal osteodystrophy from Last 3 Months Immunizations Immunization Administration Dates Next Due Influenza TIV (IM) [...] Office Visit [facility] [address] [id number] Joaquin Guaman MD [address] [phone] Health Maintenance Due Date Last Done Comments Pneumococcal Vaccine: 50+ Ye ars (2 of 2 - PCV) 07/06/2011 07/06/2010 Influenza Vaccine (Season Ended) 2025 07/23/20 15 Pneumococcal Vaccine: Peds ( 0 to 5 Years) and At-Risk Patients (6 to 49 Years) Discontinued 07/06/2010 Hepatitis B Vaccine Aged Out No longe r eligible based on patient's age to complete this topic Insurance [facility] Medicare [facility] Medicare Care Teams Manager Child Relationship Specialty Start Date End Date Stella Lemus [address] [place] [address] PCP - General 08/05/23
--- OUTSIDE RECORDS SUMMARY | 2025-01-07 12:02 | XMS_ITS | Patient Health Record ---
Author Organization [facility] Address [address] [place] [address] Care Team Providers Care Coach Wirer Name Role Phone INFANTEJUMANA Primary Care Provider [phone] CHRISTINA WALTERS [phone] ALLERGIES Allergen (clinical drug ingredient) Drug/Non Drug Allergy documented on EMR Reaction Allergy Type Onset Date Status morphine morphine (uncoded) Unknown Allergy A ctive enoxaparin Lovenox BLEEDS Drug Allergy Active RESULTS Component Value Reference Range Notes URINALYSIS Reviewed date:01/26/2024 12:40:02 PM Interpretation: Performing Lab: Notes/Report: Note Original Ordering Provider: CHRISTINA WALTERS PA-C (EMERY) [employer] [address] Poured Wall Foreman - Dora Marin MD GLUCOSE, (UA) NEGATIVE NEGATIVE mg/dL BILIRUBIN, URINE NEGATIVE NEGATIVE KETONE, URINE NEGATIVE NEGATIVE mg/dL SPECIFIC GRAVITY, URINE 1.015 1.003-1.030 BLOOD, URINE SMALL NEGATIVE PH, URINE 7.0 5.0-8.0 PROTEIN, URINE 100 <= TRACE mg/dl UROBILINOGEN, URINE 0.2 0.2-1.0 E.U./dL NITRITE, URINE POSITIVE NEGATIVE LEUKOCYTE ESTERASE, URINE LARGE NEGATIVE Note Original Ordering Provider: CHRISTINA WALTERS PA-C (EMERY) [employer], a member of [address] [address] Poured Wall Foreman - Dora Marin MD GLYCOHEMOGLOBIN PROFILE Reviewed [...] Original Ordering Provider: CHRISTINA WALTERS PA-C (EMERY) [employer] [address] Poured Wall Foreman - Dora Marin MD GLUCOSE 190 70-100 [...] Original Ordering Provider: CHRISTINA WALTERS PA-C (EMERY) [employer] [address] Poured Wall Foreman - Dora Marin MD COMPREHENSIVE METABOLIC PANE [...] Notes/Report: Original Ordering Provider: CHRISTINA MALDONADO (EMERY)Karan [facility]ESS [facility] VITAMIN D 25 HYDROXY Reviewed date:07/27/2024 [...] Creatinine, Urine 105.0 REASON FOR REFERRAL Reason x ray shows degenera tive changes and large osteophyte Diagnosis 1 Back pain, unspecifi ed back location, unspecified back pain laterality, unspecified chronicity (M54.9) Diagnosis 2 Bilateral low back p ain, unspecified chronicity, unspecified whether sciatica present (M54.50) Referral Organization [facility] Referring Provider First Name CHRISTINA Referring Provider Last Name SELENA Referring Provider Speciality Internal M edicine Referred Provider Specialty Physical The rapist Clinical Notes brissa willett 0 03/04/2024 09:42:00 AM >faxed to RENE johnson phone # [phone] and fax # [phone] pt aware to call and gael Referral Priority Routine MEDICATIONS Medication SIG (Take, Route, Frequency, Duration) Notes Start Date End Date Status Nitrofurantoin Monohyd Macro 100 MG Oral for 90 Days Not-Taking azaTHIOprine 50 MG as directed Orally three time daily Active Warfarin Sodium 2.5 mg TAKE 1 TO 3 TABLE TS ONCE A DAY DIRECTED BY PRIMARY CARE PHYSICIAN Active Fish Oil 1000 MG 1 capsule Orally Onc e a day for 30 day(s) Active OneTouch Delica Plus [id number] - USE DIRECTED TO TEST BLOOD GLUCOSE ONCE EVERY DAY for 90 Active Calcium + D 500-1000-40 MG-UNT-MCG Orally Active Lancets 30G - check twice a day dx e11.9 for 30 days 08/23/2024 Active Cyclobenzaprine HCl 5 MG 1 tablet at bed time as needed Orally Once a day for 30 days 03/09/2024 Not-Taking OneTouch Ultra - USE TO TEST DAILY fo r 90 Active Lancets 30G - one lancet in vitro twice daily DX E11.9 for 90 days 07/04/2023 Active predniSONE 10 MG 4 tab x 2 days 3 tab s x 2 days 2 tabs x 2 days 1 tab x 2 days Orally Once a day for 8 days 03/04/2024 Not-Taking Metoprolol Tartrate 25 mg TAKE ONE-HALF (1/2) TABLET TWICE A DAY WITH FOOD Active Tamsulosin HCl 0.4 mg TAKE 1 CAPSULE DAILY Active Finasteride 5 MG 0.5 tablet Orally twice a day for 90 days Active Doxazosin Mesylate 4 mg TAKE 1 TABLET DA JACINDA Orally Once a day for 90 days Not-Taking Multivitamin - Orally Activ e Gabapentin 600 MG TAKE 1 TABLET TWICE A DAY for 90 days Active Simulation ApplianceTouch Tangoe Blue - USE TO TEST BLOOD SUGAR In Vitro DX E11.9 ONCE DAILY for 0 Active Simvastatin 40 mg TAKE 1 TABLET DAILY IN THE EVENING Active IMMUNIZATIONS Vaccine Route Administration Date Status [...] confirmed Anemi a in chronic kidney disease (357792470) Problem Type 2 diabetes mellitus with diabetic chronic kidney disease (E11.22) Active confirmed Diabetic renal disease (032200637) Problem Type 2 diabetes mellitus with hyperglycemia (E11.65) Active confirmed Hyper glycemia due to type 2 diabetes mellitus (375568449337440 ) Problem Type 2 diabetes mellitus with unspecified complications (E11.8) Active confirmed Disord er due to type 2 diabetes mellitus (378841838) Problem Type 2 diabetes mellitus without complications (E11.9) Active confirmed Type I I diabetes mellitus without complication (725677321) Problem Vitamin D deficiency , unspecified (E55.9) Active confirmed 20206722 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 482082228 Problem Hyperlipidemia, unspecified (E78.5) Active confirmed Hyperlip idemia (00953543) Problem Essential (primary) hypertension (I10) Active confirmed Essential hypertension (52020041) Problem Cerebral infarction, unspecified (I63.9) Active confirmed Cerebral infarction (679607379) Problem Autoimmune hepatitis (K75.4) Active confirmed 692934062 Problem Chronic kidney disease, stage 3 (moderate) (N18.3) Active confirmed Chronic k idney disease stage 3 (disorder) (926688250) Problem penitentiary (current) use of anticoagulants (Z79.01) Active confirmed Long-term current use of anticoagulant (457949998) Problem Benign prostatic hyperplasia without lower urinary tract symptoms (N40.0) Active confirmed Benign pros tatic hypertrophy without outflow obstruction (227432636) Problem Back pain, unspecifi ed back location, unspecified back pain laterality, unspecified chronicity (M54.9) Active confirmed 848968705 Problem Adult general medica l exam (Z00.00) Active confirmed Adult health examination (581392224) Problem Hypothyroidism, unspecified type (E03.9) Active confirmed Hypothyroidism (94753303) Problem Annual physical exam (Z00.00) Active confirmed 578212336 Problem Vitamin D deficiency (E55.9) Active confirmed Vitamin D deficiency (86046792) Problem Chronic anticoagulation (Z79.01) Active confirmed Use of anticoagulation (282243096) Problem Obesity (BMI 30-39.9 ) (E66.9) Active confirmed Obesity (283149454) Problem Type 2 diabetes mellitus without complication, 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 (E11.9) Active confirmed 730678343 Problem Chronic kidney disease, stage 3b (N18.32) Active confirmed Chronic kidney disease stage 3B (disorder) (841380858) Problem Obstructive sleep apnea (G47.33) Active confirmed Obstructive sleep apnea (60150244) Problem Prostate cancer screening (Z12.5) Active confirmed Screening for malignant neoplasm of prostate (031383002) Problem 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, 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) Active confirmed Vitamin B>12< deficiency anaemia (66050643) Problem BMI 34.0-34.9,adult (Z68.34) Active confirmed 464413323 Problem Degenerative disc disease, lumbar (M51.36) Active confirmed Degeneration of lumbar intervertebral disc (37070435) Problem BPH loc w/o ur obs/LUTS (N40.0) Active confirmed Benign pros tatic hypertrophy without outflow obstruction (822863985) Problem Transaminitis (R74.01) Active confirmed 175363334 Problem Bilateral low back pain, unspecified chronicity, unspecified whether sciatica present (M54.50) Active confirmed 406295516 Problem Aortic valve disease (I35.9) Active confirmed Aortic valve disease (0051845) Problem Aortic valve replace d (Z95.2) Active confirmed History of hear t valve repair with prosthesis (192550024189751 ) Problem Diabetes mellitus ty pe 2 in nonobese (E11.9) Active confirmed Diabet es mellitus type 2 in nonobese (905082589) Problem ARGENIS on CPAP (G47.33) Active confirmed O bstructive sleep apnea syndrome (49718991) VITAL SIGNS Heart Rate 61 /min 11/18/2024 Blood pressure diastolic 80 mm Hg 11/18/2024 Oximetry 95 % 11/18/2024 Height 66 in 11/18/2024 Blood pressure systolic 124 mm Hg 11/18/2024 Weight 212.0 lbs 11/18/2024 BMI 34.21 kg/m2 11/18/2024 Encounters Encounter Location Date Provider Diagnosis [facility] [address] [place] [address] 07/01/2024 CHRISTINA WALTERS [facility] [address] [place] [address] 02/19/2024 CHRISTINA SELENA Type 2 diabetes phuong itus with diabetic [...] care planning Z71.89 and BMI 34.0-34.9,adult Z68.34 [facility] [address] [place] [address] 03/02/2024 CHRISTINA SELENA Type 2 diabetes phuong itus with diabetic [...] unspecified back pain laterality, unspecified chronicity M54.9 [place] [address] [address] 03/09/2024 TALAL INFANTE Back pain, unspecifi ed back location, unspecified back pain laterality, unspecified chronicity M54.9 ; Hyperlipidemia, unspecified E78.5 ; Type 2 diabetes mellitus without complications E11.9 and Cerebral infarction, unspecified I63.9 [place] [address] [address] 04/06/2024 TALAL INFANTE Hyperlipidemia, unspecified E78.5 ; Cerebral infarction, unspecified I63.9 ; Benign prostatic hyperplasia without lower urinary tract symptoms N40.0 ; Bilateral low back pain, unspecified chronicity, unspecified whether sciatica present M54.50 and Essential (primary) hypertension I10 [facility] [address] [place] [address] 05/31/2024 CHRISTINA WALTERS Type 2 diabetes phuong [...] (BMI 30-39.9) E66.9 and BMI 34.0-34.9,adult Z68.[address] [address] 08/17/2024 CHRISTINA WALTERS Type 2 diabetes phuong [...] (BMI 30-39.9) E66.9 and BMI 34.0-34.9,adult Z68.34 [facility] [address] [place] [address] 11/18/2024 CHRISTINA WALTERS Type 2 diabetes phuong [...] [address] [place] [address] 01/26/2024 CHRISTINA SELENA [address] [place], [place] 02/04/[address] [facility] [address] [place] [address] 03/01/[address] [place] [address] 03/03/2024 CHRISTINA SELENA [address] [place] [address] 03/04/[address] [facility] [address] [place] [address] 03/04/[address] [facility] [address] [place] [address] 03/04/[address] [place], [place] 03/05/[address] [place] [address] 03/09/[address] [place], [place] 04/16/[address] [facility] [address] [place] [address] 04/28/[address] [facility] [address] [place] [address] 05/31/[address] [facility] [address] [place] [address] 06/03/[address] [facility] [address] [place] [address] 06/21/[address] [place], [place] 06/28/[address] [facility] [address] [place] [address] 07/28/2024 CHRISTINA SELENA [address] [place] [address] 07/29/2024 CHRISTINA WALTERS [address] [place] [address] 08/12/[address] [place] [address] 08/16/2024 CHRISTINA WALTERS [facility] [address] [place] [address] 08/16/2024 CHRISTINA WALTERS [facility] [address] [place] [address] 08/23/[address] [place] [address] 08/24/[address] [place] [address] 08/27/2024 [facility] [address] [place] [address] 11/05/2024 CHRISTINA WALTERS [address] [facility] [address] [place] [address] 11/09/2024 JUMANA [facility] [address] [place] [address] 12/06/2024 CHRISTINA WALTERS ASSESSMENTS Encounter Date Diagnosis Assessment Notes Treatment Notes Treatment Clinical Notes Section Notes 02/19/2024 Type 2 diabetes mellitus with diabetic [...] log exercise and discussed fitness Apps like [employer] which can help keep log off calories [...] log exercise and discussed fitness Apps like [employer] which can help keep log off calories [...] Dictation was accomplished with the use of [employer] voice recognition software, prone to medical misidentifications [...] log exercise and discussed fitness Apps like [employer] which can help keep log off calories [...] Dictation was accomplished with the use of [employer] voice recognition software, prone to medical misidentifications [...] log exercise and discussed fitness Apps like [employer] which can help keep log off calories [...] Dictation was accomplished with the use of [employer] voice recognition software, prone to medical misidentifications [...] Dictation was accomplished with the use of [employer] voice recognition software, prone to medical misidentifications [...] Dictation was accomplished with the use of [employer] voice recognition software, prone to medical misidentifications [...] Dictation was accomplished with the use of [employer] voice recognition software, prone to medical misidentifications [...] Dictation was accomplished with the use of [employer] voice recognition software, prone to medical misidentifications [...] next visit it any questions/concerns arise. 11/18/2024 Type 2 diabetes mellitus with diabetic chronic kidney disease (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 Pt PHQ9 8. Discussed SSRI therapy, pt reluctant due to being on too many meds . # Bilateral low back pain: Chronic problem, but overall stable # ARGENIS on CPAP: Recently obtained new CPAP, esteban shows sleeping average 7.5 hours with < 0.2% episodes of apnea. Sees [facility] sleep medicine. Overnight Pulse oximeter ordered. [...] Dictation was accomplished with the use of [employer] voice recognition software, prone to medical misidentifications [...] with < 0.2% episodes of apnea. Sees [facility] sleep medicine. Overnight Pulse oximeter ordered. [...] Dictation was accomplished with the use of [employer] voice recognition software, prone to medical misidentifications [...] Dictation was accomplished with the use of [employer] voice recognition software, prone to medical misidentifications [...] Dictation was accomplished with the use of [employer] voice recognition software, prone to medical misidentifications [...] log exercise and discussed fitness Apps like [employer] which can help keep log off calories [...] Dictation was accomplished with the use of [employer] voice recognition software, prone to medical misidentifications [...] log exercise and discussed fitness Apps like [employer] which can help keep log off calories [...] Dictation was accomplished with the use of [employer] voice recognition software, prone to medical misidentifications [...] with < 0.2% episodes of apnea. Sees [facility] sleep medicine. Overnight Pulse oximeter ordered. [...] with < 0.2% episodes of apnea. Sees [facility] sleep medicine. Overnight Pulse oximeter ordered. [...] Dictation was accomplished with the use of [employer] voice recognition software, prone to medical misidentifications [...] log exercise and discussed fitness Apps like [employer] which can help keep log off calories [...] Dictation was accomplished with the use of [employer] voice recognition software, prone to medical misidentifications [...] log exercise and discussed fitness Apps like [employer] which can help keep log off calories [...] Dictation was accomplished with the use of [employer] voice recognition software, prone to medical misidentifications [...] Dictation was accomplished with the use of [employer] voice recognition software, prone to medical misidentifications [...] Dictation was accomplished with the use of [employer] voice recognition software, prone to medical misidentifications [...] Dictation was accomplished with the use of [employer] voice recognition software, prone to medical misidentifications [...] with < 0.2% episodes of apnea. Sees [facility] sleep medicine. Overnight Pulse oximeter ordered. [...] Dictation was accomplished with the use of [employer] voice recognition software, prone to medical misidentifications [...] Dictation was accomplished with the use of [employer] voice recognition software, prone to medical misidentifications [...] log exercise and discussed fitness Apps like [employer] which can help keep log off calories [...] Dictation was accomplished with the use of [employer] voice recognition software, prone to medical misidentifications [...] log exercise and discussed fitness Apps like [employer] which can help keep log off calories [...] Dictation was accomplished with the use of [employer] voice recognition software, prone to medical misidentifications [...] log exercise and discussed fitness Apps like [employer] which can help keep log off calories [...] Dictation was accomplished with the use of [employer] voice recognition software, prone to medical misidentifications [...] log exercise and discussed fitness Apps like [employer] which can help keep log off calories [...] Dictation was accomplished with the use of [employer] voice recognition software, prone to medical misidentifications [...] Dictation was accomplished with the use of [employer] voice recognition software, prone to medical misidentifications [...] Dictation was accomplished with the use of [employer] voice recognition software, prone to medical misidentifications [...] with < 0.2% episodes of apnea. Sees [facility] sleep medicine. Overnight Pulse oximeter ordered. [...] Dictation was accomplished with the use of [employer] voice recognition software, prone to medical misidentifications [...] with < 0.2% episodes of apnea. Sees [facility] sleep medicine. Overnight Pulse oximeter ordered. [...] Dictation was accomplished with the use of [employer] voice recognition software, prone to medical misidentifications [...] Deniz Kaba discussed with collaborating physician Doyle nIfante who reviewed the assessment and plan. Chart, medications, labs, vital signs reviewed. Dictation was accomplished with the use of [employer] voice recognition software, prone to medical misidentifications [...] Dictation was accomplished with the use of [employer] voice recognition software, prone to medical misidentifications [...] log exercise and discussed fitness Apps like [employer] which can help keep log off calories [...] Dictation was accomplished with the use of [employer] voice recognition software, prone to medical misidentifications [...] log exercise and discussed fitness Apps like [employer] which can help keep log off calories [...] be appropriate. Case discussed with collaborating physician Dyole Infante who reviewed the assessment and plan. Chart, medications, labs, vital signs reviewed. Dictation was accomplished with the use of [employer] voice recognition software, prone to medical misidentifications [...] log exercise and discussed fitness Apps like [employer] which can help keep log off calories [...] Dictation was accomplished with the use of [employer] voice recognition software, prone to medical misidentifications [...] log exercise and discussed fitness Apps like [employer] which can help keep log off calories [...] Dictation was accomplished with the use of [employer] voice recognition software, prone to medical misidentifications [...] Dictation was accomplished with the use of [employer] voice recognition software, prone to medical misidentifications [...] with < 0.2% episodes of apnea. Sees [facility] sleep medicine. Overnight Pulse oximeter ordered. 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 A1C at next visit. Pt intermittenly checks POC are reports fine . has not seen podiatry in quiet some time. Does have some neuropathy # Hyperlipidemia: Continue statin # CKD III. Baseline creaitnine .. Followed by Dr. Deniz Kaba discussed with collaborating physician Alexus Infante who reviewed the assessment and plan. Chart, medications, labs, vital signs reviewed. Dictation was accomplished with the use of [employer] voice recognition software, prone to medical misidentifications [...] Dictation was accomplished with the use of [employer] voice recognition software, prone to medical misidentifications [...] Dictation was accomplished with the use of [employer] voice recognition software, prone to medical misidentifications [...] Deniz Kaba discussed with collaborating physician Doyle Infanet who reviewed the assessment and plan. Chart, medications, labs, vital signs reviewed. Dictation was accomplished with the use of [employer] voice recognition software, prone to medical misidentifications [...] log exercise and discussed fitness Apps like [employer] which can help keep log off calories [...] Dictation was accomplished with the use of [employer] voice recognition software, prone to medical misidentifications [...] log exercise and discussed fitness Apps like [employer] which can help keep log off calories [...] Dictation was accomplished with the use of [employer] voice recognition software, prone to medical misidentifications [...] with < 0.2% episodes of apnea. Sees [facility] sleep medicine. Overnight Pulse oximeter ordered. [...] Dictation was accomplished with the use of [employer] voice recognition software, prone to medical misidentifications [...] log exercise and discussed fitness Apps like [employer] which can help keep log off calories [...] Dictation was accomplished with the use of [employer] voice recognition software, prone to medical misidentifications [...] log exercise and discussed fitness Apps like [employer] which can help keep log off calories [...] Dictation was accomplished with the use of [employer] voice recognition software, prone to medical misidentifications [...] with < 0.2% episodes of apnea. Sees [facility] sleep medicine. Overnight Pulse oximeter ordered. [...] Dictation was accomplished with the use of [employer] voice recognition software, prone to medical misidentifications [...] Dictation was accomplished with the use of [employer] voice recognition software, prone to medical misidentifications [...] Dictation was accomplished with the use of [employer] voice recognition software, prone to medical misidentifications [...] Dictation was accomplished with the use of [employer] voice recognition software, prone to medical misidentifications [...] Dictation was accomplished with the use of [employer] voice recognition software, prone to medical misidentifications [...] log exercise and discussed fitness Apps like [employer] which can help keep log off calories [...] Dictation was accomplished with the use of [employer] voice recognition software, prone to medical misidentifications [...] log exercise and discussed fitness Apps like [employer] which can help keep log off calories [...] Dictation was accomplished with the use of [employer] voice recognition software, prone to medical misidentifications [...] with < 0.2% episodes of apnea. Sees [facility] sleep medicine. Overnight Pulse oximeter ordered. 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 A1C at next visit. Pt intermittenly checks POC are reports fine . has not seen podiatry in quiet some time. Does have some neuropathy # Hyperlipidemia: Continue statin # CKD III. Baseline creaitnine 1.65. Followed by Dr. Guaamn Case discussed with collaborating physician Alexus Infante who reviewed the assessment and plan. Chart, medications, labs, vital signs reviewed. Dictation was accomplished with the use of [employer] voice recognition software, prone to medical misidentifications [...] log exercise and discussed fitness Apps like [employer] which can help keep log off calories [...] Dictation was accomplished with the use of [employer] voice recognition software, prone to medical misidentifications [...] log exercise and discussed fitness Apps like [employer] which can help keep log off calories [...] Dictation was accomplished with the use of [employer] voice recognition software, prone to medical misidentifications [...] Dictation was accomplished with the use of [employer] voice recognition software, prone to medical misidentifications [...] log exercise and discussed fitness Apps like [employer] which can help keep log off calories [...] Dictation was accomplished with the use of [employer] voice recognition software, prone to medical misidentifications [...] log exercise and discussed fitness Apps like [employer] which can help keep log off calories [...] Dictation was accomplished with the use of [employer] voice recognition software, prone to medical misidentifications [...] log exercise and discussed fitness Apps like [employer] which can help keep log off calories [...] Dictation was accomplished with the use of [employer] voice recognition software, prone to medical misidentifications [...] BLOOD COUNT) 04/27/2019 CBC (COMPLETE BLOOD COUNT) 06/02/2020 COMPREHENSIVE METABOLIC PANEL 06/02/2020 COMPREHENSIVE METABOLIC PANEL 04/27/2019 COMPREHENSIVE METABOLIC PANEL 11/02/2019 COMPREHENSIVE METABOLIC PANEL 09/01/2018 COMPREHENSIVE METABOLIC PANEL 05/21/2021 COMPREHENSIVE METABOLIC PANEL 10/15/2021 HEMOGLOBIN A1C 05/21/2021 HEMOGLOBIN A1C 10/15/2021 HEMOGLOBIN A1C 10/27/2017 HEMOGLOBIN A1C 11/02/2019 HEMOGLOBIN A1C 04/27/2019 HEMOGLOBIN A1C 06/02/2020 HEMOGLOBIN A1C 11/26/2022 LIPID PANEL 06/02/2020 LIPID PANEL 04/27/2019 LIPID PANEL 09/01/2018 LIPID PANEL 05/21/2021 LIPID PANEL 11/02/2019 LIPID PANEL 10/15/2021 PSA, SCREEN 10/15/2021 TSH 10/15/2021 URINALYSIS, COMPLETE 11/02/2019 URINALYSIS, COMPLETE 09/01/2018 URINALYSIS, COMPLETE 04/27/2019 URINALYSIS, COMPLETE 06/02/2020 AST/SGOT 11/21/2021 US Extrem Non-Vascular RT 05/15/2023 PT/INR 04/27/2019 LIPID PANEL, STANDARD 11/14/2023 LIPID PANEL, STANDARD 04/06/2024 HEPATITIS PANEL, ACUTE W/REFLEX TO CONFI RMATION 11/21/2021 COMPREHENSIVE METABOLIC PANEL 04/06/2024 COMPREHENSIVE METABOLIC PANEL 02/19/2024 COMPREHENSIVE METABOLIC PANEL 11/14/2023 CBC (INCLUDES DIFF/PLT) 11/14/2023 CBC (INCLUDES DIFF/PLT) 02/19/2024 CBC (INCLUDES DIFF/PLT) 04/06/2024 URINALYSIS, COMPLETE 11/14/2023 HEMOGLOBIN A1c 11/14/2023 HEMOGLOBIN [...] 12/04/2022 Next Appt Details Provider Name:CHRISTINA WALTERS, 02/24/2025 11:15:00 AM, [address], [place], [address], Insurance Providers Payer Name Payer Address Payer Phone Subscriber Number Group Number Insured Name Patient Relationship to Insured Coverage Start Date Coverage End Date Medicare Part B [id number] [address] [place], [place] [id number] IRVIN SUAZO Self - patient is the insured MED[employer] [address] [place] [address] [phone] [id number] IRVIN SUAZO Self - patient is the [...]
--- OUTSIDE RECORDS SUMMARY | 2025-01-07 12:02 | XMS_ITS ---
Author Organization [facility] Address [address] [place] [address] Care Team Providers Care Nursery Worker Name Role Phone HERNANDEZJUMANA TOMAS Primary Care Provider [phone] CHRISTINA WALTERS [phone] REASON FOR VISIT Refill - Simvastatin MEDICATIONS Medication SIG (Take, Route, Fr equency, Duration) Notes Start Date End Date Status Simvastatin 40 mg TAKE 1 TABLET DAILY IN THE EVENING Active Encounters Encounter Location Date Provider Diagnosis [facility] [address] [place] [address] 12/06/2024 CHRISTINA WALTERS PLAN OF TREATMENT Medication Medication Name Sig Start Date Stop Date Notes Simvastatin 40 mg TAKE 1 TABLET DAILY IN THE EVENING Next Appt Details Provider Name:CHRISTINA WALTERS, 02/24/2025 11:15:00 AM, [address] [facility], [place], [address], Progress Notes * IRVIN SUAZODOB:[birth year] (79 yo M)Acc No.[id number]:12/06/2024 Patient:??LAKEISHA IRVIN DAS ID :[id number]?Age:79 Y?Sex:Meliza de león Address:[address] [place] [address] * Refills?? Refill Simvastatin Tablet, 40 mg, 90 Tablet, TAKE 1 TABLET DAILY IN THE EVENING, Refills=3 * true * Date:??
== END 2025-01-07 11:13 | disposition home or self-care (01) ==
LOC: HO.ACS 10:57
PROVIDERS: PCP Physician Assistant Medical; Visit Provider Internal Medicine Medical Oncology
DX: Z79.01 Long term (current) use of anticoagulants (principal)

== ENCOUNTER → 2025-01-07 10:57 | Outpatient (BNVA) | payer MEDICARE, SELFPAY | PROVIDERS: PCP Physician Assistant Medical; Visit Provider Internal Medicine Medical Oncology | DX: I26.99 Other pulmonary embolism without acute cor pulmonale (principal); Z79.01 Long term (current) use of anticoagulants; Z51.81 Encounter for therapeutic drug level monitoring | CPT/HCPCS: 85610; 99211 ==

== ENCOUNTER → 2025-01-25 15:58 | Outpatient (BNVA) | payer MEDICARE, SELFPAY | PROVIDERS: PCP Physician Assistant Medical; Visit Provider Internal Medicine Medical Oncology ==

== ENCOUNTER 2025-02-04 10:35 | Outpatient (AMB) | payer MEDICARE, SELFPAY ==
[2025-02-04 11:02] LABS: Prothrombin Time Whole Bld POC 48.4 sec (11.1-13.5)
--- OUTSIDE RECORDS SUMMARY | 2025-02-04 11:03 | XMS_ITS | Clinical Summary ---
Author Organization [facility] Address [address] [place] [phone] Phone Care Team Providers Care Risk Control Director Name Role Phone Stella Lemus Primary Care Provider Allergies Active Allergy Reactions [...] Encounters Date Type Department Care Team Description 02/01/2025 1:15 PM EDT Office Visit [facility] [address] [facility] [address] [place] [address] Joaquin Guaman MD Stage 3b chronic kidney disease (HCC) (Primary Dx); Renal osteodystrophy from Last 3 Months Immunizations Immunization Administration Dates Next Due H1N1 Inj Preservative Free 09/22/2009 Influenza (IM) Preservative Free 07/19/2010 Influenza Split High Dose Pr eservative Free IM 07/01/2017,07/13/2015,06/16/2014,06/22 Influenza TIV (IM) 07/23/2015 Influenza, MDCK, PF, Quadrivalent 06/23/2012 Pneumococcal Conjugate 13-Valent 02/17/2015 Pneumococcal Polysaccharide 07/06/2010, 8 Family History Medical History Relation Comments Diabetes [...] Sign Reading Time Taken Comments Blood Pressure 118/60 02/01/2025 1:05 PM EDT Pulse 77 02/01/2025 1:05 PM EDT Temperature - - Respiratory Rate - - Oxygen Saturation 99% 02/01/2025 1:05 PM EDT Inhaled Oxygen Concentration - - Weight 94.3 kg (208 lb) 02/01/2025 1:05 PM EDT Height 172.7 cm (5' 8 ) 06/25/2019 12:00 PM EDT Body Mass Index 31.63 06/25/2019 12:00 PM EDT Plan of Treatment Upcoming Encounters Date Type Department Care Team (Late st Contact Info) Description 08/04/2025 10:45 AM EST Office Visit [facility] [address] [address] [place] [facility] [address] [address] Health Maintenance Due Date Last Done Comments Hepatitis B Vaccine (1 of 3 - Risk 3-dose series) 2003 Influenza Vaccine (Season Ended) 2025 07/01/2017, 07/23/2015, 07/13/2015, Additional history exists Pneumococcal Vaccine: 50+ Years Completed 02/17/2015, 07/06/2010, 09/22/2007 Pneumococcal Vaccine: Peds ( 0 to 5 Years) and At-Risk Patients (6 to 49 Years) Discontinued 02/17/2015, 07/06/2010, 09/22/2007 Procedures Procedure Name Priority Date/Time Associated Diagnosis Comments URINALYSIS RFX MICROSCOPIC Routine 01/25/2025 3:12 PM EDT PROTEIN / CREATININE RATIO, URINE Routine 01/25/2025 3:12 PM EDT Stage 3b chronic kidney disease (HCC) Renal osteodystrophy URINE ALBUMIN / CREATININE RATIO Routine 01/25/2025 3:12 PM EDT Stage 3b chronic kidney disease (HCC) Renal osteodystrophy MAGNESIUM Routine 01/25/2025 3:07 PM EDT Stage 3b chronic kidney disease (HCC) Renal osteodystrophy VITAMIN D 25 HYDROXY Routine 01/25/2025 3:07 PM EDT Stage 3b chronic kidney disease (HCC) Renal osteodystrophy RENAL FUNCTION PANEL Routine 01/25/2025 3:07 PM EDT Stage 3b chronic kidney disease (HCC) Renal osteodystrophy PTH, INTACT Routine 01/25/2025 3:07 PM EDT Stage 3b chronic kidney disease (HCC) Renal osteodystrophy from Last 3 Months Results * (ABNORMAL) Protein, Total, Random Urine w/Creatinine (Protein/Creat Ratio) (01/25/2025 3:12 PM EDT) Protein, Ur 144 mg/dL [facility] Urine Protein/Creati nine Ratio 1.37(H) <=0.20 mg/mg creat [facility] Creatinine, Urine 105.0 mg/dL [facility] Urine (Urine, Clean Catch) 01/25/2025 3:12 PM EDT 01/25/2025 4:11 PM EDT Joaquin Guaman MD LAB URINE ORDERABLES Final Re sult Performing Organization Address [facility] Co de Phone Number [facility] [address] [place] [address] * (ABNORMAL) Urine Albumin / Creatinine Ratio (01/25/2025 3:12 PM EDT) Creatinine, Urine 105.0 mg/dL [facility] Microalbumin Urine Random 868.0(H) 0.0 - 29.0 mg/L [facility] Microalbumin/Cre atinine Ratio 827(H) <30 mg/g creat [facility] Urine (Urine, Clean Catch) 01/25/2025 3:12 PM EDT 01/25/2025 4:11 PM EDT Joaquin Guaman MD LAB URINE ORDERABLES Final Re sult Performing Organization Address City/[facility]/ZIP Co de Phone Number [facility] [address] [place] [address] * (ABNORMAL) Urinalysis Reflex Microscopic (01/25/2025 3:12 PM EDT) Specific [place] 1.015 1.003 - 1.030 [facility] pH Urine 7.0 5.0 - 8.0 pH [facility] LEUKOCYTES, URINE Moderate(A) Negative [facility] Nitrite, Urine Positive(A) Negative [facility] Protein, Urine 100(A) <=Trace mg/dL [facility] Glucose Urine Negative Negative mg/dL [facility] Ketones, Urine Negative Negative mg/dL [facility] Urobilinogen Urine 0.2 0.2 - 1.0 mg/dL [facility] Bilirubin Urine Negative Negative [facility] Blood Urine Small(A) Negative [facility] RBC, Urine 5.1(H) 0 - 4 /HPF [facility] WBC, Urine 138.2(H) 0 - 4 /HPF [facility] Squamous Epithelial, Urine 15 0 - 60 /LPF [facility] Crystals, Urine Heavy Amorphous Urate crystals. /LPF [facility] Bacteria, Urine Few(A) Negative /HPF [facility] Hyaline Casts, UA 0 0 - 3 /LPF [facility] 01/25/2025 3:12 PM EDT 01/25/2025 4:12 PM EDT us Joaquin Guaman MD LAB URINE ORDERABLES Final Re sult [facility] [address] [place] [address] * Vitamin D 25 Hydroxy (01/25/2025 3:07 PM EDT) Vitamin D, 25-OH, Total 49.0 30.0 - 80.0 ng/mL [facility] Blood (Blood, Venous) 01/25/2025 3:07 PM EDT 01/25/2025 4:08 PM EDT Joaquin Guaman MD LAB BLOOD ORDERABLES Final Re sult Performing Organization Address [facility] Co de Phone Number [facility] [address] [place] [address] * (ABNORMAL) PTH, Intact (01/25/2025 3:07 PM EDT) PTH 107.7(H) 18.5 - 88.0 pcg/mL [facility] Blood (Blood, Venous) 01/25/2025 3:07 PM EDT 01/25/2025 4:08 PM EDT Joaquin Guaman MD LAB BLOOD ORDERABLES Final Re sult Performing Organization Address [facility] Co de Phone Number [facility] [address] [place] [address] * Magnesium (01/25/2025 3:07 PM EDT) Magnesium 2.2 1.9 - 2.6 mg/dL [facility] Blood (Blood, Venous) 01/25/2025 3:07 PM EDT 01/25/2025 4:08 PM EDT Joaquin Guaman MD LAB BLOOD ORDERABLES Final Re sult Performing Organization Address [facility] Co de Phone Number [facility] [address] [place] [address] * (ABNORMAL) Renal Function Panel (01/25/2025 3:07 PM EDT) Sodium 140 133 - 145 mmol/L [facility] Potassium 4.5 3.5 - 5.5 mmol/L [facility] Chloride 103 96 - 110 mmol/L [facility] Bicarbonate (CO2) 29 21 - 32 mmol/L [facility] Anion Gap 8 3 - 11 [facility] Glucose 95 70 - 100 mg/dL [facility] BUN 30(H) 5 - 25 mg/dL [facility] Creatinine Serum 1.95(H) 0.70 - 1.30 mg/dL [facility] eGFR 34(L) >=60 mL/min/1. 73m2 [facility] Comment:Calculation based on the Chronic Kidney Disease Epidemiology Collaboration (CKD-EPI) equation refit without adjustment for race. BUN/Creatinine Ratio 15.4 [facility] Albumin 3.4 3.2 - 5.0 g/dL [facility] Calcium 9.5 8.5 - 10.5 mg/dL [facility] Phosphorus 3.0 2.5 - 4.5 mg/dL [facility] Blood (Blood, Venous) 01/25/2025 3:07 PM EDT 01/25/2025 4:08 PM EDT us Joaquin Guaman MD LAB BLOOD ORDERABLES Final Re sult [facility] [address] [place] [address] from Last 3 Months Insurance [place] [address] [place] [address] Medicare Care Teams Risk Control Director Relationship Specialty Start Date End Date Stella Lemus [address] [facility] [place] [address] PCP - General 08/05/23
--- OUTSIDE RECORDS SUMMARY | 2025-02-04 11:03 | XMS_ITS | Clinical Summary ---
Author Organization [address] Address [address] [place] [address] Phone Care Team Providers Care Licensed Architect Name Role Phone Espinoza Infante MD Primary Care Provider [phone] Allergies Active Allergy Reactions Criticality Noted Date [...] BY MOUTH TWICE DAILY 0 Active omega 3-vmt-fed-fish oil (Fish OiL) 1,000 (120-180) mg capsule Take 1 capsule (1,000 mg total) by mouth 2 (two) times a day. 7 Active azaTHIOprine (IMURAN) 50 mg tablet Take 1 tablet (50 mg total) by mouth 2 (two) times a day. 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 Factor V Leiden ([facility] V24) 12/01/2023 ARGENIS (obstructive sleep apnea) 12/01/2023 Seizures ([facility] V24, [facility] V28) 12/01/2023 Allergic rhinitis 07/21/2019 Autoimmune hepatitis ([facility] V24, [facility] V28) 07/21/2019 Overview (12/01/2023): 2011 BPH (benign prostatic hyperplasia) 07/21/2019 CAD (coronary artery disease) 07/21/2019 Overview (12/01/2023): CABG Carotid artery stenosis 07/21/2019 Overview (12/01/2023): Bilateral Cataract 07/21/2019 Chronic venous insufficiency 07/21/2019 Hyperlipidemia 07/21/2019 Hypertension 07/21/2019 Interstitial lung disease ([facility] V24, [facility] V28) 07/21/2019 Nephrolithiasis 07/21/2019 Type 2 diabetes mellitus ([facility] V24, [facility] V 28) 07/21/2019 DM (diabetes mellitus), type 2 with peripheral vascular complications ([facility] V24, [facility] V28) 07/21/2019 DM (diabetes mellitus), type 2 with renal complications ([facility] V24, [facility] V28) 07/21/2019 Type 2 diabetes mellitus wit h cataract ([facility] V24, [facility] V28) 07/21/2019 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 Aneurysm of ascending aorta ([facility] V24) 2016 Iron deficiency anemia 12/12/2015 Encounters Date Type Department Care Team Description 12/06/[address] [facility] [address] [address] Nanci Veras [place] Prior Authorization (Azathioprine 50 mg) 12/06/[address] [facility] [address] [address] Henry Morris MD REFILL REQUEST 11/23/2024 10:30 AM EST Office Visit Gastroenterology [facility] [address] [address] Henry Morris MD Autoimmune hepatitis ([facility] V24, [facility] V28) (Primary Dx) from Last 3 Months Immunizations Name Administration [...] Medical History Date Comments Factor V Leiden ([facility] V24) DX :Factor V Leiden ([facility]) Seizures ([facility] V24, [facility] V28) DX:Seizures ([facility]) DVT (deep venous thrombosis) ([facility] V24, [facility] V28) DX:DVT (deep venous thrombos is) ([facility]) 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, [facility]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 ([facility]) Aortic valve replaced DX:Aortic valve replaced ARGENIS (obstructive sleep apnea) DX :ARGENIS (obstructive sleep apnea) BPH (benign prostatic hyperplasia) 07/21/2019 DX:BPH (benign prostatic hyperplasia) CKD (chronic kidney disease) stage 3, GFR 30-59 ml/min ([facility] V24, [facility] V28) DX:CKD (chronic kidney disea se) stage 3, GFR 30-59 ml/min ([facility]) Hyperlipidemia 07/21/2019 DX:Hyperlipidemi a Hypertension 07/21/2019 DX:Hypertension CAD (coronary artery disease) 07/21/2019 DX :CAD (coronary artery disease); COMMENT: CABG DM (diabetes mellitus), type 2 with renal complications ([facility] V24, [facility] V28) 07/21/2019 DX:DM (diabetes mellitus), t ype 2 with renal complications (HCC) Nephrolithiasis 07/21/2019 DX:Nephrolithias is Autoimmune hepatitis ([facility] C V24, [facility] V28) 07/21/2019 DX:Autoimmune hepatitis (HCC ) Interstitial lung disease ([facility]/HCC V24, [facility] V28) 07/21/2019 DX:Interstitial lung disease (HCC) Allergic rhinitis 07/21/2019 DX:Allergic rh initis Cataract 07/21/2019 DX:Cataract Type 2 diabetes mellitus wit h cataract ([facility] V24, [facility] V28) 07/21/2019 DX:Type 2 diabetes mellitus with cataract (HCC) Chronic venous insufficiency 07/21/2019 DX: Chronic venous insufficiency DM (diabetes mellitus), type 2 with peripheral vascular complications ([facility] V24, [facility] V28) 07/21/2019 DX:DM (diabetes mellitus), type 2 with peripheral vascular complications (HCC) Carotid artery stenosis 07/21/2019 DX:Carot id artery stenosis; COMMENT: Bilateral History of DVT (deep vein thrombosis) 08/21/2018 DX:History of DVT (deep vein thrombosis) 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:Post -thrombotic syndrome Aneurysm of ascending aorta ([facility] V24) 07/28/2017 DX:Aneurysm of ascending aor ta [...] 10:00 AM EDT Office Visit Gastroenterology - [place] 175 [facility] 175 [facility] [address] [place] [id number] Henry Morris MD [address] [facility] [address] [place] [address] Health Maintenance Due Date Last Done Comments [...] Social Influencers of Health Screening 08/24/2022 Diabetes: Blood Sugar Control Test (HGBA1C) 09/07/2022 Medicare Annual Wellness Visit 11/27/2023 11/26/2022 COVID-19 Vaccine (8 - Moderna risk season) 2025 08/10/2024, 07/24/2023, 06/10/2022, Additional history exists Diabetes: Annual Urine Albumin-Creatinine Ratio (uACR) 01/25/2026 01/25/2025 Diabetes: Annual GFR (Glomerular Filtration Rate) 01/25/2026 01/25/2025, 07/27/2024 Hypertension/CHF/CAD Annual BMP Blood Test 01/25/2026 01/25/2025, 07/27/2024 Pneumococcal Vaccine: 50+ Years Completed 02/17/2015, [...] Name Priority Date/Time Associated Diagnosis Comments URINALYSIS WITH REFLEX MICROSCOPIC Routine 01/25/2025 3:12 PM EDT Chronic kidney disease (CKD) stage G3b/A1, moderately decreased glomerular filtration rate (GFR) between 30-44 mL/min/1.73 square meter and albuminuria creatinine ratio les* (CMS/HCC V24, CMS/HCC V28) Renal osteodystrophy PROTEIN AND CREATININE WITH RATIO, URINE Routine 01/25/2025 3:12 PM EDT Chronic kidney disease (CKD) stage G3b/A1, moderately decreased glomerular filtration rate (GFR) between 30-44 mL/min/1.73 square meter and albuminuria creatinine ratio les* (CMS/HCC V24, CMS/HCC V28) Renal osteodystrophy MICROALBUMIN CREATININE URINE RATIO Routine 01/25/2025 3:12 PM EDT Chronic kidney disease (CKD) stage G3b/A1, moderately decreased glomerular filtration rate (GFR) between 30-44 mL/min/1.73 square meter and albuminuria creatinine ratio les* (CMS/HCC V24, CMS/HCC V28) Renal osteodystrophy URINALYSIS WITH REFLEX MICROSCOPIC Routine 01/25/2025 3:12 PM EDT Chronic kidney disease (CKD) stage G3b/A1, moderately decreased glomerular filtration rate (GFR) between 30-44 mL/min/1.73 square meter and albuminuria creatinine ratio les* (CMS/HCC V24, CMS/HCC V28) Renal osteodystrophy MAGNESIUM Routine 01/25/2025 3:07 PM EDT Chronic kidney disease (CKD) stage G3b/A1, moderately decreased glomerular filtration rate (GFR) between 30-44 mL/min/1.73 square meter and albuminuria creatinine ratio les* (CMS/HCC V24, CMS/HCC V28) Renal osteodystrophy VITAMIN D 25 HYDROXY Routine 01/25/2025 3:07 PM EDT Chronic kidney disease (CKD) stage G3b/A1, moderately decreased glomerular filtration rate (GFR) between 30-44 mL/min/1.73 square meter and albuminuria creatinine ratio les* (CMS/HCC V24, CMS/HCC V28) Renal osteodystrophy RENAL FUNCTION PANEL Routine 01/25/2025 3:07 PM EDT Chronic kidney disease (CKD) stage G3b/A1, moderately decreased glomerular filtration rate (GFR) between 30-44 mL/min/1.73 square meter and albuminuria creatinine ratio les* (CMS/HCC V24, CMS/HCC V28) Renal osteodystrophy PARATHYROID HORMONE INTACT Routine 01/25/2025 3:07 PM EDT Chronic kidney disease (CKD) stage G3b/A1, moderately decreased glomerular filtration rate (GFR) between 30-44 mL/min/1.73 square meter and albuminuria creatinine ratio les* (CMS/HCC V24, CMS/HCC V28) Renal osteodystrophy from Last 3 Months Results * (ABNORMAL) Urinalysis with reflex microscopic (01/25/2025 3:12 PM EDT) Specific [place] Urine 1.015 1.003 - 1.030 LAB URINALYSIS - AUTOMATED METHOD 01/25/2025 7:18 PM [facility] pH, Urine 7.0 5.0 - 8.0 pH LAB URINALYSIS - AUTOMATED METHOD 01/25/2025 7:18 PM [facility] Leukocytes, Urine Moderate(A) Negative LAB URINALYSIS - AUTOMATED METHOD 01/25/2025 7:18 PM [facility] Nitrite, Urine Positive(A) Negative LAB URINALYSIS - AUTOMATED METHOD 01/25/2025 7:18 PM [facility] Protein, Urine 100(A) <=Trace mg/dL LAB URINALYSIS - AUTOMATED METHOD 01/25/2025 7:18 PM [facility] Glucose, Urine Negative Negative mg/dL LAB URINALYSIS - AUTOMATED METHOD 01/25/2025 7:18 PM [facility] Ketones, Urine Negative Negative mg/dL LAB URINALYSIS - AUTOMATED METHOD 01/25/2025 7:18 PM [facility] Urobilinogen , Urine 0.2 0.2 - 1.0 mg/dL LAB URINALYSIS - AUTOMATED METHOD 01/25/2025 7:18 PM [facility] Bilirubin, Urine Negative Negative LAB URINALYSIS - AUTOMATED METHOD 01/25/2025 7:18 PM [facility] Blood, Urine Small(A) Negative LAB URINALYSIS - AUTOMATED METHOD 01/25/2025 7:18 PM [facility] RBC, Urine 5.1(H) 0 - 4 /HPF LAB URINALYSIS - AUTOMATED METHOD 01/25/2025 7:18 PM [facility] WBC, Urine 138.2(H) 0 - 4 /HPF LAB URINALYSIS - AUTOMATED METHOD 01/25/2025 7:18 PM [facility] Squamous Epithelial, Urine 15 0 - 60 /LPF LAB URINALYSIS - AUTOMATED METHOD 01/25/2025 7:18 PM [facility] Crystals, Urine Heavy Amorphous Urate crystals. /LPF 01/25/2025 7:18 PM EDT [facility] Bacteria, Urine Few(A) Negative /HPF LAB URINALYSIS - AUTOMATED METHOD 01/25/2025 7:18 PM EDT [facility] Hyaline Casts, Urine 0 0 - 3 /LPF LAB URINALYSIS - AUTOMATED METHOD 01/25/2025 7:18 PM EDT [facility] Urine Urine specimen obtained by clean catch procedure / Unknown Non-blood Collection / Unknown 01/25/2025 3:12 PM EDT 01/25/2025 4:12 PM EDT us Joaquin Guaman MD LAB URINE ORDERABLES Final Re sult Performing Organization Address [facility]/ZIP Co de Phone Number [facility] [address] [place] [address], [place] [phone] * (ABNORMAL) Protein and creatinine with ratio, urine (01/25/2025 3:12 PM EDT) Protein, Urine 144 mg/dL LAB CHEMISTRY METHOD 01/25/2025 7:53 PM EDT [facility] Prot/Creat, Ur 1.37(H) <=0.20 mg/mg creat LAB CHEMISTRY METHOD 01/25/2025 7:53 PM EDT [facility] Creatinine, Urine 105.0 mg/dL LAB CHEMISTRY METHOD 01/25/2025 7:53 PM EDT [facility] Urine Urine specimen obtained by clean catch procedure / Unknown Non-blood Collection / Unknown 01/25/2025 3:12 PM EDT 01/25/2025 4:11 PM EDT us Joaquin Guaman MD LAB URINE ORDERABLES Final Re sult Performing Organization Address [facility]/ZIP Co de Phone Number [facility] [address] [place] [address], [place] [phone] * (ABNORMAL) Microalbumin creatinine urine ratio (01/25/2025 3:12 PM EDT) Creatinine, Urine 105.0 mg/dL LAB CHEMISTRY METHOD 01/25/2025 8:46 PM EDT [facility] Microalb, Ur 868.0(H) 0.0 - 29.0 mg/L LAB CHEMISTRY METHOD 01/25/2025 8:46 PM EDT [facility] Microalb/Crea t Ratio 827(H) <30 mg/g creat LAB CHEMISTRY METHOD 01/25/2025 8:46 PM EDT [facility] Urine Urine specimen obtained by clean catch procedure / Unknown Non-blood Collection / Unknown 01/25/2025 3:12 PM EDT 01/25/2025 4:11 PM EDT us Joaquin Guaman MD LAB URINE ORDERABLES Final Re sult Performing Organization Address City/[facility]/ZIP Co de Phone Number [facility] [address] [place] [address], [place] [phone] * Vitamin D 25 hydroxy (01/25/2025 3:07 PM EDT) Vit D, 25-Hydroxy 49.0 30.0 - 80.0 ng/mL LAB CHEMISTRY METHOD 01/25/2025 7:37 PM EDT [facility] Blood Venous blood specimen / Unknown Venipuncture / Unknown 01/25/2025 3:07 PM EDT 01/25/2025 4:08 PM EDT us Joaquin Guaman MD LAB BLOOD ORDERABLES Final Re sult [facility] [address] [place] [address], [place] [phone] * (ABNORMAL) Parathyroid hormone intact (01/25/2025 3:07 PM EDT) PTH 107.7(H) 18.5 - 88.0 pcg/mL LAB CHEMISTRY METHOD 01/25/2025 7:37 PM EDT [facility] Blood Venous blood specimen / Unknown Venipuncture / Unknown 01/25/2025 3:07 PM EDT 01/25/2025 4:08 PM EDT Joaquin Guaman MD LAB BLOOD ORDERABLES Final Re sult [facility] [address] [place] [address], [place] [phone] * Magnesium (01/25/2025 3:07 PM EDT) Pathologist [facility] Magnesium 2.2 1.9 - 2.6 mg/dL LAB CHEMISTRY METHOD 01/25/2025 5:27 PM EDT [facility] Blood Venous blood specimen / Unknown Venipuncture / Unknown 01/25/2025 3:07 PM EDT 01/25/2025 4:08 PM EDT Joaquin Guaman MD LAB BLOOD ORDERABLES Final Re sult [facility] [address] [place] [address], [place] [phone] * (ABNORMAL) Renal function panel (01/25/2025 3:07 PM EDT) Sodium 140 133 - 145 mmol/L LAB CHEMISTRY METHOD 01/25/2025 5:27 PM EDT [facility] Potassium 4.5 3.5 - 5.5 mmol/L LAB CHEMISTRY METHOD 01/25/2025 5:27 PM EDT [facility] Chloride 103 96 - 110 mmol/L LAB CHEMISTRY METHOD 01/25/2025 5:27 PM [facility] CO2 29 21 - 32 mmol/L LAB CHEMISTRY METHOD 01/25/2025 5:27 PM [facility] Anion Gap 8 3 - 11 LAB CHEMISTRY METHOD 01/25/2025 5:27 PM [facility] Glucose 95 70 - 100 mg/dL LAB CHEMISTRY METHOD 01/25/2025 5:27 PM [facility] BUN 30(H) 5 - 25 mg/dL LAB CHEMISTRY METHOD 01/25/2025 5:27 PM [facility] Creatinine 1.95(H) 0.70 - 1.30 mg/dL LAB CHEMISTRY METHOD 01/25/2025 5:27 PM [facility] eGFR 34(L) >=60 mL/min/1. 73m2 LAB CHEMISTRY METHOD 01/25/2025 5:27 PM [facility] Comment:Calculation based on the Chronic Kidney Disease Epidemiology Collaboration (CKD-EPI) equation refit without adjustment for race. BUN/Creatinine Ratio 15.4 LAB CHEMISTRY METHOD 01/25/2025 5:27 PM [facility] Albumin 3.4 3.2 - 5.0 g/dL LAB CHEMISTRY METHOD 01/25/2025 5:27 PM [facility] Calcium 9.5 8.5 - 10.5 mg/dL LAB CHEMISTRY METHOD 01/25/2025 5:27 PM [facility] Phosphorus 3.0 2.5 - 4.5 mg/dL LAB CHEMISTRY METHOD 01/25/2025 5:27 PM [facility] Blood Venous blood specimen / Unknown Venipuncture / Unknown 01/25/2025 3:07 PM EDT 01/25/2025 4:08 PM EDT us Joaquin Guaman MD LAB BLOOD ORDERABLES Final Re sult [facility] [address] [place] [address], from Last 3 Months Insurance MEDICARE [facility] Advance Directives Documents on File Type Date Recorded Patient Extraction Supervisor Expl anation Health Care Decision (hx) 01/06/2012 AD PEREZ DIRECTIVE Health Care Decision (hx) 01/06/2012 AD PEREZ DIRECTIVE Health Care Decision (hx) 01/06/2012 AD PEREZ DIRECTIVE Care Teams Licensed Architect Relationship Specialty Start Date End Date Espinoza Infante MD [address] [place] [address] [address] [place] [address] PCP - General Internal Medicine 10/18/24
--- OUTSIDE RECORDS SUMMARY | 2025-02-04 11:04 | XMS_ITS | Encounter Summary ---
Author Organization [facility] Address [address] [address] Phone Care Team Providers Care Pin Drafter Operator Name Role Phone Stella Lemus Primary Care Provider [phone] Encounter Details Date Type Department Care Team (Latest Contact Info) Description 02/01/2025 1:15 PM EDT Office Visit [facility] [address] [address] Joaquin Guaman MD [address] [address] Stage 3b chronic kidney disease (HCC) (Primary Dx); Renal osteodystrophy Social History Tobacco Use Types [...] (208 lb) 02/01/2025 1:05 PM EDT Height - - Body Mass Index 31.63 06/25/2019 12:00 PM EDT documented in this encounter Patient Instructions * Patient Instructions* Joaquin Guaman MD - 02/01/2025 1:15 PM EDT No NSAIDS - Do not take non-steroidal anti-inflammatory medications (NSAIDS) such as Ibuprofen (Advil, Motrin, etc), Naproxen (Aleve, etc), Celecoxib (Celebrex) or Ketoprofen. These common arthritis medications can cause permanent kidney damage or worsen your kidney damage. For mild occasional pain, Acetaminophen (Tylenol, etc) is safe for your kidneys. Sodium and Your CKD Diet: How to Spice Up Your Cooking What is sodium? Sodium is a mineral found naturally in foods and is the major part of table salt. What are the effects of eating too much sodium? When your kidneys are not healthy, extra sodium and fluid build up in your body. This can cause swollen ankles, puffiness, a rise in blood pressure, shortness of breath, and/or fluid around your heart and lungs. See the following table for suggestions on how to reduce sodium in your diet. LIMIT THE [AMOUNT OF... FOOD TO LIMIT BECAUSE OF THEIR HIGH SODIUM CONTENT ACCEPTABLE SUBSTITUTES SALT & SALT SEASONINGS Table salt Seasoning salt Garlic salt Onion salt Celery salt Lemon pepper Lite salt Meat tenderizer Bouillon cubes Flavor enhancers Fresh garlic, fresh onion, garlic powder, onion powder, black [pepper, lemon juice, low-sodium/salt-free seasoning blends, vinegar SALTY FOODS Barbecue sauce Steak sauce Soy sauce Teriaky sauce Oyster sauce Salted Snacks such as Crackers Potato chips [place] chips Pretzels Tortilla chips Nuts Popcorn Manvel seeds Homemade or low- sodium sauces and salad dressings; Vinegar, dry mustard, unsalted popcorn, pretzels, tortilla or corn chips Cured Foods Ham Salt pork Nettles Sauerkraut Pickles, pickle relish Lox & Donovan Olives Fresh beef, veal, pork, poultry, fish, eggs [place] MEATS Hot Dogs Cold cuts, deli meats Pastrami Sausage Corned beef Spam Low-salt deli meats PROCESSED FOODS Buttermilk Cheese Canned: Soups Tomato products Vegetable juices Canned vegetables Convenience Foods such as: TV Dinners Canned raviolis [place] Macaroni & Cheese Spaghetti Frozen prepared foods Fast foods Natural cheese (1-2 oz Per week) Homemade or sharon,1- sodium soups, canned food without added salt Homemade casseroles without added salt, made with fresh or raw vegetables, fresh meat, león, pasta, or unsalted canned vegetables Some salt or sodium is needed for body water balance. But when your kidneys lose the ability to control sodium and water balance, you may experience the following: thirst fluid gain high blood pressure discomfort during dialysis By using less sodium in your diet, you can control these problems. Hints to keep your sodium intake down Cook with herbs and spices instead of salt. (Refer to Spice Up Your Cooking section for further suggestions.) Read food labels and choose those foods low in sodium. Avoid salt substitutes and specialty low-sodium foods made with salt substitutes because they are high in potassium. When eating out, ask for meat or fish without salt. Ask for gravy or sauce on the side; these may contain large amounts of salt and should be used in small amounts . Limit use of canned, processed and frozen foods. Some information about reading labels Understanding the terms: Sodium Free - Only a trivial amount of sodium per serving. Very Low Sodium - 35 mg or less per serving. Low Sodium - 140 mg or less per serving. Reduced Sodium - Foods in which the level of sodium is reduced by 25%. Light or Lite in Sodium - Foods in which the sodium is reduced by at least 50% . Simple rule of thumb : If salt is listed in the first five ingredients, the item is probably too high in sodium to use. All food labels now have milligrams (mg) of sodium listed. Follow these steps when reading the sodiwn information on the label: 1. Know how much sodium you are allowed each day. Remember that there are 1000 milligrams (mg) in 1gram. For [id number], if your diet prescription is 2 grams of sodium , your limit is 2000 milligrams per day. Consider the sodium value or other food to be eaten during the day. 2. Look at the package label. Check the serving size. Nutrition values are expressed per adrian g. How does this compare to your total daily allowance? If the sodium level is 500 mg or more per serving, the item is not a good choice. 3. Compare labels of similar products. Select the lowest sodium level for the same serving size. How to Spice Up Your Cooking Giving up salt does not mean giving up flavor. Learn to season your food with herbs and spices. Be creative and experiment for a new and exciting flavor. What kinds of spices and herbs should I use instead of salt to add flavor? Try the following spices with the foods listed. Allspice: Use with beef, fish, beets, cabbage, canots, peas, fruit. Basil: Use with beef, pork, most vegetables. [place]: Use with beef, pork, most vegetables. Jeffery: Use with beef, pork, green beans, cauliflower, cabbage, beets, asparagus, and in dips and marinades. Cardamom: Use with fruit and in baked goods. Cano: Use with beef, chicken, pork, fish, green beans, carrots and in marinades. Dill: Use with beef, chicken, green beans, cabbage, carrots, peas and in dips. Marlee: Use with beef, chicken, pork, green beans, cauliflower and eggplant. Marjoram: Use with beef, chicken, pork, green beans, cauliflower and eggplant. Britni: Use with chicken, pork, cauliflower, peas and in marinades. Thyme: Use with beef, chicken, pork, fish, green beans, beets and carrots. Nicola: Use with chicken, pork, eggplant and in dressing. Tarragon: Use with fish, chicken, asparagus, beets, cabbage, cauliflower and in marinades. Tips for cooking with herbs and spices Purchase spices and herbs in small amounts . When they sit on the shelf for years they lose their flavor. Use no more than ?? teaspoon of dried spice (?? of fresh) per pound of meat. Add ground spices to food about 15 minutes before the end of the cooking period. Add whole spices to food at least one hour before the end of the cooking period. Combine herbs with oil or butter, set for 30 minutes to bring out their flavor, then brush on foodswhile they cook, or brush meat with oil and sprinkle herbs one hour before coolcing. Crush dried herbs before adding to foods. Can I use salt substitutes? Caution! If you are told to limit potassium in your diet, be very cautious about using salt substitutes because most of them contain some form of potassium. Check with your doctor or dietitian beforeusing and salt substitute. [place] and create your own seasoning containing those spices that you like. If you would like to become a volunteer and find out more about what's happening where you live, contact your local [facility] Affiliate. Blood pressure monitoring education: Monitor home blood pressure values after sitting for 5 minutes with back and arm support. Keep a log. Bring your log and blood pressure cuff to your next visit. documented in this encounter Progress Notes * Joaquin Guaman MD - 02/01/2025 1:15 PM EDT Images from the original note were not included. Patient Name: Sreekanth Garcia, Male Date of : 1945, 80 y.o. Date: 02/01/25 [] New Patient [x] Established Patient [] New Hospital Follow Up [] Established Hospital Follow Up [] Telemed Visit [] H&P Referring MD: Ho Reagan MD PCP: Stella Lemus Reason For Visit CKD 3, HTN Sreekanth Garcia is a 80 y.o. male seen today in f/u regarding stage 3 CKD on backdrop of HTN and H/O Obs uropathy. Overall doing well since last seen. Cont f/u with urol for Ur urgency and occ incontence. No dyusria, fever or chills Cont close f/u with Derm re skin cancer on face. Per PT he cont Tx for his h/o auto-immune hepatits with immuran Last Scr satble at 1.95 ( 01/24/25) Sc r 1.5-2.0 over the past 5 years Denies chest pain or shortness of breath. No blood in the urine or difficulties urinating. Complains of mild arthritic complaints but avoids use of NSAIDs. The following portions of the patient's chart were reviewed in this encounter and updated as appropriate: Allergies Constitutional: Negative for chills and fever. Respiratory: Negative for cough and shortness of breath. Cardiovascular: Negative for chest pain, palpitations and leg swelling. Gastrointestinal: Negative for abdominal pain, nausea and vomiting. Genitourinary: Negative for dysuria, frequency, hematuria and urgency. Full 13 point review of systems unremarkable except as noted above. Past Medical History: Diagnosis Date Acute injury of kidney Bilateral cataracts Heart valve disorder aortic Hepatitis History of recurrent urinary tract infection Hyperlipidemia Hypertension Secondary hyperparathyroidism (HCC) Seizure (HCC) Sleep apnea Stage 3 chronic kidney disease Past Surgical History: Procedure Laterality Date HERNIA REPAIR x2 TONSILLECTOMY VALVE REPLACEMENT Social History Tobacco Use Smoking status: Never Smokeless tobacco: Not on file Substance Use Topics Alcohol use: No Family History Problem Relation Age of Onset Hypertension Mother Heart disease Mother Diabetes Father Heart disease Father Current Outpatient Medications Medication Sig Dispense Refill amoxicillin (AMOXIL) 500 MG capsule Take 4 capsules by mouth azaTHIOprine (IMURAN) 50 MG tablet Calcium Carbonate-Vitamin D 600-200 MG-UNIT capsule Take 1 capsule by mouth 1 (one) time each day cholecalciferol (VITAMIN D-3) 25 MCG (1000 UT) capsule Take 1 capsule by mouth every morning finasteride (PROSCAR) 5 MG tablet Take 1 tablet by mouth 1 (one) time each day gabapentin (NEURONTIN) 600 MG tablet Take 1 tablet by mouth 2 (two) times a day metoprolol tartrate 25 MG tablet Take 0.5 tablets by mouth 2 (two) times a day nitrofurantoin (MACRODANTIN) 100 MG capsule Take by mouth 4 (four) times a day omega-3 (FISH OIL) 1000 MG capsule Take 1 capsule by mouth 2 (two) times a day simvastatin (ZOCOR) 40 MG tablet Take 1 tablet by mouth every night tamsulosin (FLOMAX) 0.4 MG 24 hr capsule Take 1 capsule by mouth 1 (one) time each day triamcinolone (KENALOG) 0.1 % lotion Apply as needed warfarin (COUMADIN) 2.5 MG tablet doxazosin (CARDURA) 4 MG tablet Take 1 tablet by mouth 1 (one) time each day (Patient not taking: Reported on 02/01/2025) No current facility-administered medications for this visit. Allergies Allergen Reactions Enoxaparin Other (see comments) Keppra [Levetiracetam] Morphine Other (see comments) Objective: Vitals: 05/13/25 1305 BP: 118/60 Pulse: 77 SpO2: 99% Weight: 208 lb (94.3 kg) 116/70 Vitals reviewed. Constitutional: No distress. Cardiovascular: Normal rate, regular rhythm and normal heart sounds. He exhibits no edema. Pulmonary/Chest: Effort normal and breath sounds normal. No respiratory distress. Abdominal: Soft. There is no abdominal tenderness. No hernia. Skin: Skin is warm and dry. Psychiatric: He has a normal mood and affect. His behavior is normal. No results found for: EGFRAFR Chemistry Lab Units 01/25/25 1507 07/27/24 0837 07/29/23 0925 CREATININE mg/dL 1.95* 2.03* 2.03* 1.64* BUN mg/dL 30* 34* 34* 31* BUN / CREAT RATIO 15.4 16.7 16.7 -- EGFRNAFR -- -- 42* GLUCOSE mg/dL -- 114* 117* POTASSIUM mmol/L 4.5 4.6 4.6 4.3 SODIUM mmol/L 140 139 139 142 CO2 mmol/L 29 29 29 29 CHLORIDE mmol/L 103 104 104 107 ALBUMIN g/dL 3.4 3.4 3.4 3.3 Bone Mineral Lab Units 01/25/25 1507 07/27/24 0837 07/29/23 0925 CALCIUM mg/dL 9.5 9.9 9.9 9.7 PHOSPHORUS mg/dL 3.0 2.9 2.9 2.8 MAGNESIUM mg/dL 2.2 2.1 2.0 PTH pcg/mL 107.7* 82.1 55 VIT D 25 HYDROXY ng/mL 49.0 57.0 68 CBC Lab Units 07/27/24 0837 WBC AUTO K/mcL 6.2 RBC AUTO M/mcL 4.70 MCV FL 98.3* HEMATOCRIT % 46.5 HEMOGLOBIN g/dL 14.6 PLATELETS AUTO K/mcL 145 Urine Lab Units 01/25/25 1512 07/27/24 0837 07/29/23 0925 PROT/CREAT RATIO UR mg/mg creat 1.37* 1.01* 0.73* ALB MG/G CREAT UR mg/g creat 827* 827* -- 354.3* Urine Lab Units 01/25/25 1512 07/27/24 0837 07/29/23 0925 PH U pH 7.0 -- -- GLUCOSE U MG/DL mg/dL Negative -- -- KETONES U MG/DL mg/dL Negative -- -- WBC UR HPF /HPF 138.2* 30.0* 97* RBC UR HPF /HPF 5.1* 2.0 8* UROBILINOGEN U MG/DL mg/dL 0.2 -- -- PLAN: Assessment & Plan 80 Y/O wM STABLE STAGE 3 CKD H/O OBS UROPATHY 1. CKD 3b: Scr now stable in 1.8-2.1 range 2. Recurrent UTI's: had been on residential suppressive abx and no recurrent infections and being managed by Urol 3. 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 H/O Urinary retention: resolved; f/u urol 5. H/O DVT: now s/p IVC filter; maintained on coumadin 6. HTN: controlled; goal 120/80 range ; watch to make sure BP doesn't go too low 7. 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 H/O Incr HB: Hb 14 now 10. Scrotal edema: resolved PLAN: no change in meds; avoid NSAIDs; cont F/U urol re H/O urinary retention and freq UTIs; cont to follow renal func/PTH/vit D; Will avoid SGLT2i given h/o UTIs 1. Stage 3b chronic kidney disease (HCC) 2. Renal osteodystrophy Orders Placed This Encounter PTH, Intact Renal Function Panel Urinalysis with microscopic Urine Albumin / Creatinine Ratio Protein, Total, Random Urine w/Creatinine (Protein/Creat Ratio) Vitamin D 25 Hydroxy CBC Phosphorus Magnesium Albumin Calcium Return in about 6 months (around 08/04/2025). Joaquin Guaman MD documented in this encounter Plan of Treatment Upcoming Encounters Date Type Department Care Team (Late st Contact Info) Description 08/04/2025 10:45 AM EST Office Visit [facility] P. [address] [phone] Julinan Byrd ARNP [address] [phone] Scheduled Orders Name Type Priority Associated Diagnoses Orde r Schedule PTH, Intact Lab Routine Stage 3b chronic kidney disease (HCC) Renal osteodystrophy Expected: 02/01/2025, Expires: 03/04/2026 Renal Function Panel Lab Routine Stage 3b chronic kidney disease (HCC) Renal osteodystrophy Expected: 02/01/2025, Expires: 03/04/2026 Urinalysis with microscopic Lab Routine Stage 3b chronic kidney disease (HCC) Renal osteodystrophy Expected: 02/01/2025, Expires: 03/04/2026 Urine Albumin / Creatinine Ratio Lab Routine Stage 3b chronic kidney disease (HCC) Renal osteodystrophy Expected: 02/01/2025, Expires: 03/04/2026 Protein, Total, Random Urine w/Creatinine (Protein/Creat Ratio) Lab Routine Stage 3b chronic kidney disease (HCC) Renal osteodystrophy Expected: 02/01/2025, Expires: 03/04/2026 Vitamin D 25 Hydroxy Lab Routine Stage 3b chronic kidney disease (HCC) Renal osteodystrophy Expected: 02/01/2025, Expires: 03/04/2026 CBC Lab Routine Stage 3b chronic kidney disease (HCC) Renal osteodystrophy Expected: 02/01/2025, Expires: 03/04/2026 Phosphorus Lab Routine Stage 3b chronic kidney disease (HCC) Renal osteodystrophy Expected: 02/01/2025, Expires: 03/04/2026 Magnesium Lab Routine Stage 3b chronic kidney disease (HCC) Renal osteodystrophy Expected: 02/01/2025, Expires: 03/04/2026 Albumin Lab Routine Stage 3b chronic kidney disease (HCC) Renal osteodystrophy Expected: 02/01/2025, Expires: 03/04/2026 Calcium Lab Routine Stage 3b chronic kidney disease (HCC) Renal osteodystrophy Expected: 02/01/2025, Expires: 03/04/2026 documented as of this encounter Visit Diagnoses Diagnosis Stage 3b chronic kidney disease (HCC)- Primary Renal osteodystrophy documented in this encounter Care Teams Pin Drafter Operator Relationship Specialty Start Date End Date Stella Lemus [address] [facility] [place] [address] PCP - General 08/05/23 documented as of this encounter
--- OUTSIDE RECORDS SUMMARY | 2025-02-04 11:04 | XMS_ITS | Patient Health Record ---
Author Organization [employer] [facility] Address [address] [place] [address] Care Team Providers Care Lobsterman Name Role Phone CHRISTINA WALTERS Unavailable [phone] JUMANA INFANTE Unavailable [phone] Allergies Allergen (clinical drug ingredient) Drug/Non Drug Allergy documented on EMR Reaction Allergy Type Onset Date Status morphine morphine (uncoded) Unknown Allergy A ctive enoxaparin Lovenox BLEEDS Drug Allergy Active Results Component Value Reference Range Notes PROTEIN AND CREATININE WITH RATIO, URINE Reviewed date:07/27/2024 02:18:26 PM Interpretation: Performing Lab: Notes/Report: Protein, Urine 106 Prot/Creat, Ur 1.01 <=0.20 mg/mg creat Creatinine, Urine 105.0 PARATHYROID HORMONE INTACT Reviewed date:07/27/2024 01:28:46 PM Interpretation: Performing Lab: Notes/Report: PTH 82.1 18.5-88.0 pcg/mL RENAL FUNCTION PANEL Reviewed date:07/27/2024 02:18:39 PM [...] 9.9 8.5-10.5 mg/dL Phosphorus 2.9 2.5-4.5 mg/dL COMPLETE BLOOD COUNT Reviewed date:07/27/2024 02:06:20 PM Interpretation: Performing Lab: Notes/Report: WBC 6.2 4.8-10.8 K/mcL RBC 4.70 4.50-5.50 M/mcL Hemoglobin 14.6 13.5-17.5 g/dL Hematocrit 46.5 42.0-54.0 % MCV 98.3 79.0-98.0 FL MCH 30.9 27.0-32.0 pcg MCHC 31.4 32.0-37.0 g/dL RDW 14.8 11.0-15.0 % Platelets 145 130-400 K/mcL MPV 10.5 7.0-11.0 FL NRBC 0.0 <1.0 % NRBC Absolute 0.00 <0.10 K/mcL URINALYSIS MICROSCOPIC ONLY Reviewed date:07/27/2024 02:18:39 PM Interpretation: Performing Lab: Notes/Report: RBC, Urine 2.0 0-4 /HPF WBC, Urine 30.0 0-4 /HPF Squamous Epithelial, Urine 10 0-60 /LPF Bacteria, Urine Moderate Negative /HPF Hyaline Casts, Urine 1.0 0-3 /LPF MAGNESIUM Reviewed date:07/27/2024 01:28:46 PM Interpretation: Performing Lab: Notes/Report: Magnesium 2.1 1.9-2.6 mg/dL VITAMIN D 25 HYDROXY Reviewed date:07/27/2024 01:28:46 PM Interpretation: Performing Lab: Notes/Report: Vit D, 25-Hydroxy 57.0 30.0-80.0 ng/mL CBC WITH AUTO DIFF Reviewed date:05/25/2024 12:51:27 PM Interpretation: Performing Lab: Notes/Report: Sterilizer Operator - Dora Marin MD [address] [place] [address] [employer], a member of [facility] Original Ordering Provider: CHRISTINA WALTERS PA-C (EMERY) WBC 6.4 4.8-10.8 x10-3/uL RBC 4.8 4.5-5.5 [...] x10-3/uL IMMATURE GRANULOCYTES # 0.03 0-0.03 x10-3/uL COMPREHENSIVE METABOLIC PANE L Reviewed date:05/25/2024 01:05:19 PM Interpretation: Performing Lab: Notes/Report: Note Original Ordering Provider: CHRISTINA MALDONADO (EMERY)[employer] [address] Sterilizer Operator - Dora Marin MD GLUCOSE 190 70-100 [...] 42-121 U/L Note Original Ordering Provider: CHRISTINA MALDONADO (EMERY)[employer], a member of [address] [address] Sterilizer Operator - Dora Marin MD GLYCOHEMOGLOBIN PROFILE Reviewed date:05/25/2024 12:53:08 PM Interpretation: Performing Lab: Notes/Report: Original Ordering Provider: CHRISTINA WALTERS PA-C (EMERY) [employer], a member of [address] [address] Sterilizer Operator - Dora Marin MD GLYCATED HEMOGLOBIN A1C 6.4 <6.5 % ESTIMATED AVERAGE GLUCOSE 137 CR Spine Lumbar W Obliq min 4v Reviewed date:03/04/2024 10:14:52 AM Interpretation: Performing Lab: Notes/Report: Original Ordering Provider: CHRISTINA WALTERS PA-C (EMERY) [facility] Reason For Referral Reason x ray shows degenera tive changes and large osteophyte Diagnosis 1 Back pain, unspecifi ed back location, unspecified back pain laterality, unspecified chronicity (M54.9) Diagnosis 2 Bilateral low back p ain, unspecified chronicity, unspecified whether sciatica present (M54.50) Referral Organization [facility] Referring Provider First Name CHRISTINA Referring Provider Last Name SELENA Referring Provider Speciality Internal M edicine Referred Provider Specialty Physical The rapist Clinical Notes morrisbrissa sage 0 03/04/2024 09:42:00 AM >faxed to RENE johnson phone # [phone] and fax # [phone] pt aware to call and gael Referral Priority Routine Medications Medication SIG (Take, Route, Frequency, Duration) Notes [...] for 30 day(s) Active OneTouch Delica Plus [id number] - USE DIRECTED TO TEST BLOOD GLUCOSE [...] 0.4 mg TAKE 1 CAPSULE DAILY Active OneTouch Ultra - USE TO TEST DAILY fo r 90 Active Lancets 30G - one lancet in vitro twice daily DX E11.9 for 90 days 07/04/2023 Active Finasteride 5 MG 0.5 tablet Orally twice a day for 90 days Active Doxazosin Mesylate 4 mg TAKE 1 TABLET DA JACINDA Orally Once a day for 90 days Not-Taking Multivitamin - Orally Activ e Gabapentin 600 MG TAKE 1 TABLET TWICE A DAY for 90 days Active OneTouch Ultra Blue - USE TO TEST BLOOD SUGAR In Vitro DX E11.9 ONCE DAILY for 0 Active Simvastatin 40 mg TAKE 1 TABLET DAILY IN THE EVENING Active Immunizations Vaccine Route Administration Date Status Comme nts influenza IM Intramuscular 06/10/2020 Administered Influenza, high dose seasonal IM Intramuscular 06/27/2023 Administered Moderna Covid-19 Vaccine Unknown 10/23/2020 Administere d Moderna Covid-19 Vaccine Unknown 11/20/2020 Administere d Moderna Covid-19 Vaccine Unknown 05/21/2021 Administere d Moderna Covid-19 Vaccine Unknown 12/31/2021 Administere d Social History Tobacco Use: Social History Observation Description Date Details (start date - stop date) Never Smoker NA - NA Tobacco Use/Smoking Question Answer Notes Are you a nonsmoker Section Notes: smokes , second hand sm mo smokes [...] smokes , second hand sm mo smokes Problems Problem Type SNOMED Code ICD Code Onset Dates Problem Status W/U Status Risk Notes Problem Anemia in chronic kidney disease (960543732) 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) Active confirmed Problem Diabetic renal disease (508563029) Type 2 diabetes mellitus with diabetic chronic kidney disease (E11.22) Active confirmed Problem Hyperglycemia due to type 2 diabetes mellitus (694223812632874) Type 2 diabetes mellitus with hyperglycemia (E11.65) Active confirmed Problem Disorder due to type 2 diabetes mellitus (523945204) Type 2 diabetes mellitus with unspecified complications (E11.8) Active confirmed Problem Type II diabetes mellitus without complication (493183967) Type 2 diabetes mellitus without complications (E11.9) Active confirmed Problem 55894618 Vitamin D defici ency, unspecified (E55.9) Active confirmed Problem 044621306 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 Problem Hyperlipidemia (39719478) Hyperlipidemia, unspecified (E78.5) Active confirmed Problem Essential hypertension (40777048) Essential (primary) hypertension (I10) Active confirmed Problem Cerebral infarction (987223849) Cerebral infarction, unspecified (I63.9) Active confirmed Problem 443687636 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 Problem Chronic kidney disease stage 3 (disorder) (690973015) Chronic kidney disease, stage 3 (moderate) (N18.3) Active confirmed Problem Long-term current use of anticoagulant (754420949) longterm (current) use of anticoagulants (Z79.01) Active confirmed Problem Benign prostatic hypertrophy without outflow obstruction (113221327) Benign prostatic hyperplasia without lower urinary tract symptoms (N40.0) Active confirmed Problem 108064523 Back pain, unspe cified back location, unspecified back pain laterality, unspecified chronicity (M54.9) Active confirmed Problem Adult health examination (907829686) Adult general medical exam (Z00.00) Active confirmed Problem Hypothyroidism (27539527) Hypothyroidism, unspecified type (E03.9) Active confirmed Problem 328842147 Annual physical exam (Z00.00) Active confirmed Problem Vitamin D deficiency (49452757) Vitamin D deficiency (E55.9) Active confirmed Problem Use of anticoagulation (988168136) Chronic anticoagulation (Z79.01) Active confirmed Problem Obesity (349679609) Obesity (BMI 30-39.9) (E66.9) Active confirmed Problem 363887580 Type 2 diabetes mellitus without complication, unspecified whether oysterman insulin use (E11.9) Active confirmed Problem Chronic kidney disease stage 3B (disorder) (433231347) Chronic kidney disease, stage 3b (N18.32) Active confirmed Problem Obstructive sleep apnea (19151496) Obstructive sleep apnea (G47.33) Active confirmed Problem Screening for malignant neoplasm of prostate (248020316) Prostate cancer screening (Z12.5) Active confirmed Problem Vitamin B>12< deficiency anaemia (56765832) Anemia due to vitamin B12 deficiency, 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) Active confirmed Problem 480414733 BMI 34.0-34.9,ad ult (Z68.34) Active confirmed Problem Degeneration of lumbar intervertebral disc (98159430) Degenerative disc disease, lumbar (M51.36) Active confirmed Problem Benign prostatic hypertrophy without outflow obstruction (490026599) BPH loc w/o ur obs/LUTS (N40.0) Active confirmed Problem 655055205 Transaminitis (R74.01) Active confirm ed Problem 430245381 Bilateral low ba ck pain, unspecified chronicity, unspecified whether sciatica present (M54.50) Active confirmed Problem Aortic valve disease (1350805) Aortic valve disease (I35.9) Active confirmed Problem History of heart valve repair with prosthesis (382811281103995) Aortic valve replaced (Z95.2) Active confirmed Problem Diabetes mellitus type 2 in nonobese (822955193) Diabetes mellitus type 2 in nonobese (E11.9) Active confirmed Problem Obstructive sleep apnea syndrome (08194369) ARGENIS on CPAP (G47.33) Active confirmed Vital Signs Heart Rate 61 /min 11/18/2024 Oximetry 95 % 11/18/2024 Blood pressure diastolic 80 mm Hg 11/18/2024 Height 66 in 11/18/2024 Blood pressure systolic 124 mm Hg 11/18/2024 Weight 212.0 lbs 11/18/2024 BMI 34.21 kg/m2 11/18/2024 Encounters Encounter Location Date Provider Diagnosis [facility] [address] [place] [address] 02/19/2024 CHRISTINA WALTERS Type 2 diabetes phuong [...] care planning Z71.89 and BMI 34.0-34.9,adult Z68.34 [facility] [address] [place] [address] 03/02/2024 CHRISTINA SELENA Type 2 diabetes phuong [...] unspecified back pain laterality, unspecified chronicity M54.9 [facility] [address] [address] 03/09/2024 TALAL INFANTE Back pain, unspecifi ed back location, unspecified back pain laterality, unspecified chronicity M54.9 ; Hyperlipidemia, unspecified E78.5 ; Type 2 diabetes mellitus without complications E11.9 and Cerebral infarction, unspecified I63.9 [facility] [address] [address] 04/06/2024 TALAL INFANTE Hyperlipidemia, unspecified E78.5 ; Cerebral infarction, unspecified I63.9 ; Benign prostatic hyperplasia without lower urinary tract symptoms N40.0 ; Bilateral low back pain, unspecified chronicity, unspecified whether sciatica present M54.50 and Essential (primary) hypertension I10 [address] [address] 05/31/2024 CHRISTINA WALTERS Type 2 diabetes phuong [...] (BMI 30-39.9) E66.9 and BMI 34.0-34.9,adult Z68.[address] [address] 08/17/2024 CHRISTINA WALTERS Type 2 diabetes phuong [...] (BMI 30-39.9) E66.9 and BMI 34.0-34.9,adult Z68.[address] [address] 11/18/2024 CHRISTINA WALTERS Type 2 diabetes phuong [...] (BMI 30-39.9) E66.9 and BMI 34.0-34.9,adult Z68.[address] [facility] [address] [place] [address] 03/01/[address] [facility] [address] [facility] [address] [place] [address] 03/03/2024 CHRISTINA SELENA [address] [facility] [address] [place] [address] 03/04/[address] [facility] [address] [place] [address] 03/04/[address] [facility] [address] [place] [address] 03/04/[address] [facility] [address] [facility] [address] [place] [address] 03/05/[address] [facility] [address] [facility] [address] [place] [address] 03/09/[address] [facility] [address] [facility] [address] [place] [address] 04/16/[address] [facility] [address] [place] [address] 04/28/[address] [facility] [address] [place] [address] 05/31/[address] [facility] [address] [place] [address] 06/03/[address] [facility] [address] [place] [address] 06/21/[address] [facility] [address] [facility] [address] [place] [address] 06/28/[address] [facility] [address] [place] [address] 07/28/2024 CHRISTINA SELENA [address] [address] [place] [address] 07/29/2024 CHRISTINA SELENA [address] [facility] [address] [place] [address] 08/12/[address] [facility] [address] [facility] [address] [place] [address] 08/16/2024 CHRISTINA WALTERS [facility] [address] [place] [address] 08/16/[address] [facility] [address] [place] [address] 08/23/[address] [facility] [facility] [address] [facility] [address] [place] [address] 08/24/[address] [facility] [facility] [address] [facility] [address] [place] [address] 08/27/2024 [facility] [address] [facility] [place] [address] 11/05/2024 CHRISTINA WALTERS [address] [place] [address] 11/09/2024 [facility] [address] [place] [address] 12/06/2024 CHRISTINA WALTERS [address] [place] [address] 2025 [facility] [address] [place] [address] 01/24/2025 CHRISTINA SELENA Assessments Encounter Date Diagnosis (ICD Code) Assessment Notes Treatment Notes Treatment Clinical Notes [...] log exercise and discussed fitness Apps like [employer] Digital Keys which can help keep log off calories [...] Dictation was accomplished with the use of [employer] voice recognition software, prone to medical misidentifications [...] 1.65. Followed by Dr. Guaman # Screenings: NED Physical Men Patient seen and examined. Comprehensive [...] log exercise and discussed fitness Apps like [employer] which can help keep log off calories [...] Dictation was accomplished with the use of [employer] voice recognition software, prone to medical misidentifications [...] log exercise and discussed fitness Apps like [employer] Keys which can help keep log off calories [...] Dictation was accomplished with the use of [employer] voice recognition software, prone to medical misidentifications [...] log exercise and discussed fitness Apps like [employer] Keys which can help keep log off calories [...] Dictation was accomplished with the use of [employer] voice recognition software, prone to medical misidentifications [...] Dictation was accomplished with the use of [employer] voice recognition software, prone to medical misidentifications [...] Dictation was accomplished with the use of [employer] voice recognition software, prone to medical misidentifications [...] Dictation was accomplished with the use of [employer] voice recognition software, prone to medical misidentifications [...] with < 0.2% episodes of apnea. Sees [facility] sleep medicine. Overnight Pulse oximeter ordered. [...] Dictation was accomplished with the use of [employer] voice recognition software, prone to medical misidentifications [...] with < 0.2% episodes of apnea. Sees [facility] sleep medicine. Overnight Pulse oximeter ordered. [...] Dictation was accomplished with the use of [employer] voice recognition software, prone to medical misidentifications [...] with < 0.2% episodes of apnea. Sees [facility] sleep medicine. Overnight Pulse oximeter ordered. [...] Dictation was accomplished with the use of [employer] voice recognition software, prone to medical misidentifications [...] Dictation was accomplished with the use of [employer] voice recognition software, prone to medical misidentifications [...] relaxer Flexeril at night will follow-up 04/06/2024 Benign prostatic hyperplasia without lower urinary [...] log exercise and discussed fitness Apps like [employer] which can help keep log off calories [...] Dictation was accomplished with the use of [employer] voice recognition software, prone to medical misidentifications [...] 1.65. Followed by Dr. Guaman # Screenings: NED Physical Men Patient seen and examined. Comprehensive [...] log exercise and discussed fitness Apps like [employer] which can help keep log off calories [...] Dictation was accomplished with the use of [employer] voice recognition software, prone to medical misidentifications [...] log exercise and discussed fitness Apps like [employer] Keys which can help keep log off calories [...] Dictation was accomplished with the use of [employer] voice recognition software, prone to medical misidentifications [...] relaxer Flexeril at night will follow-up 03/02/2024 ARGENIS on CPAP (ICD-10 - G47.33) [...] log exercise and discussed fitness Apps like [employer] Keys which can help keep log off calories [...] Dictation was accomplished with the use of [employer] voice recognition software, prone to medical misidentifications [...] Dictation was accomplished with the use of [employer] voice recognition software, prone to medical misidentifications [...] Dictation was accomplished with the use of [employer] voice recognition software, prone to medical misidentifications [...] with < 0.2% episodes of apnea. Sees [facility] sleep medicine. Overnight Pulse oximeter ordered. [...] Dictation was accomplished with the use of [employer] voice recognition software, prone to medical misidentifications [...] with < 0.2% episodes of apnea. Sees [facility] sleep medicine. Overnight Pulse oximeter ordered. [...] Dictation was accomplished with the use of [employer] voice recognition software, prone to medical misidentifications [...] Dictation was accomplished with the use of [employer] voice recognition software, prone to medical misidentifications [...] log exercise and discussed fitness Apps like [employer] Keys which can help keep log off calories [...] Dictation was accomplished with the use of [employer] voice recognition software, prone to medical misidentifications [...] Dictation was accomplished with the use of [employer] voice recognition software, prone to medical misidentifications [...] log exercise and discussed fitness Apps like [employer] Keys which can help keep log off calories [...] be appropriate. Case discussed with collaborating physician Dolye Infante who reviewed the assessment and plan. Chart, medications, labs, vital signs reviewed. Dictation was accomplished with the use of [employer] voice recognition software, prone to medical misidentifications [...] log exercise and discussed fitness Apps like [employer] Keys which can help keep log off calories [...] Dictation was accomplished with the use of [employer] voice recognition software, prone to medical misidentifications [...] log exercise and discussed fitness Apps like [employer] Keys which can help keep log off calories [...] Dictation was accomplished with the use of [employer] voice recognition software, prone to medical misidentifications [...] Dictation was accomplished with the use of [employer] voice recognition software, prone to medical misidentifications [...] Dictation was accomplished with the use of [employer] voice recognition software, prone to medical misidentifications [...] with < 0.2% episodes of apnea. Sees [facility] sleep medicine. Overnight Pulse oximeter ordered. [...] Dictation was accomplished with the use of [employer] voice recognition software, prone to medical misidentifications [...] with < 0.2% episodes of apnea. Sees [facility] sleep medicine. Overnight Pulse oximeter ordered. [...] Dictation was accomplished with the use of [employer] voice recognition software, prone to medical misidentifications [...] Dictation was accomplished with the use of [employer] voice recognition software, prone to medical misidentifications [...] Dictation was accomplished with the use of [employer] voice recognition software, prone to medical misidentifications [...] log exercise and discussed fitness Apps like [employer] Keys which can help keep log off calories [...] Dictation was accomplished with the use of [employer] voice recognition software, prone to medical misidentifications [...] 1.65. Followed by Dr. Guaman # Screenings: NED Physical Men Patient seen and examined. Comprehensive [...] log exercise and discussed fitness Apps like [employer] Keys which can help keep log off calories [...] Dictation was accomplished with the use of [employer] voice recognition software, prone to medical misidentifications [...] log exercise and discussed fitness Apps like [employer] Keys which can help keep log off calories [...] Dictation was accomplished with the use of [employer] voice recognition software, prone to medical misidentifications [...] log exercise and discussed fitness Apps like [employer] Keys which can help keep log off calories [...] Dictation was accomplished with the use of [employer] voice recognition software, prone to medical misidentifications [...] with < 0.2% episodes of apnea. Sees [facility] sleep medicine. Overnight Pulse oximeter ordered. [...] Dictation was accomplished with the use of [employer] voice recognition software, prone to medical misidentifications [...] Dictation was accomplished with the use of [employer] voice recognition software, prone to medical misidentifications [...] Dictation was accomplished with the use of [employer] voice recognition software, prone to medical misidentifications [...] Dictation was accomplished with the use of [employer] voice recognition software, prone to medical misidentifications [...] Dictation was accomplished with the use of [employer] voice recognition software, prone to medical misidentifications [...] log exercise and discussed fitness Apps like [employer] Keys which can help keep log off calories [...] Dictation was accomplished with the use of [employer] voice recognition software, prone to medical misidentifications [...] log exercise and discussed fitness Apps like [employer] which can help keep log off calories [...] Dictation was accomplished with the use of [employer] voice recognition software, prone to medical misidentifications [...] with < 0.2% episodes of apnea. Sees [facility] sleep medicine. Overnight Pulse oximeter ordered. [...] Dictation was accomplished with the use of [employer] voice recognition software, prone to medical misidentifications [...] with < 0.2% episodes of apnea. Sees [facility] sleep medicine. Overnight Pulse oximeter ordered. [...] Dictation was accomplished with the use of [employer] voice recognition software, prone to medical misidentifications [...] 1.65. Followed by Dr. Guaman # Screenings: NED Physical Men Patient seen and examined. Comprehensive [...] log exercise and discussed fitness Apps like [employer] Keys which can help keep log off calories [...] Dictation was accomplished with the use of [employer] voice recognition software, prone to medical misidentifications [...] log exercise and discussed fitness Apps like [employer] Keys which can help keep log off calories [...] Dictation was accomplished with the use of [employer] voice recognition software, prone to medical misidentifications [...] Dictation was accomplished with the use of [employer] voice recognition software, prone to medical misidentifications [...] Dictation was accomplished with the use of [employer] voice recognition software, prone to medical misidentifications [...] Dictation was accomplished with the use of [employer] voice recognition software, prone to medical misidentifications [...] Guaman Case discussed with collaborating physician Doyle Ifnante who reviewed the assessment and plan. Chart, medications, labs, vital signs reviewed. Dictation was accomplished with the use of [employer] voice recognition software, prone to medical misidentifications [...] log exercise and discussed fitness Apps like [employer] Keys which can help keep log off calories [...] Dictation was accomplished with the use of [employer] voice recognition software, prone to medical misidentifications [...] log exercise and discussed fitness Apps like [employer] which can help keep log off calories [...] Dictation was accomplished with the use of [employer] voice recognition software, prone to medical misidentifications [...] with < 0.2% episodes of apnea. Sees [facility] sleep medicine. Overnight Pulse oximeter ordered. [...] Dictation was accomplished with the use of [employer] voice recognition software, prone to medical misidentifications [...] log exercise and discussed fitness Apps like [employer] which can help keep log off calories [...] Dictation was accomplished with the use of [employer] voice recognition software, prone to medical misidentifications [...] log exercise and discussed fitness Apps like [employer] which can help keep log off calories [...] Dictation was accomplished with the use of [employer] voice recognition software, prone to medical misidentifications [...] Dictation was accomplished with the use of [employer] voice recognition software, prone to medical misidentifications [...] log exercise and discussed fitness Apps like [employer] which can help keep log off calories [...] Dictation was accomplished with the use of [employer] voice recognition software, prone to medical misidentifications [...] log exercise and discussed fitness Apps like [employer] which can help keep log off calories [...] Dictation was accomplished with the use of [employer] voice recognition software, prone to medical misidentifications [...] 1.65. Followed by Dr. Guaman # Screenings: NED Physical Men Patient seen and examined. Comprehensive [...] log exercise and discussed fitness Apps like [employer] which can help keep log off calories [...] Dictation was accomplished with the use of [employer] voice recognition software, prone to medical misidentifications and grammatical errors. This is unintentional and the practitioner does try to identify and correct these, but some could still be present. Please do not hesitate to contact practitioner for clarification. All questions answered to patients satisfaction. Patient verbalized understanding of diagnosis and treatments explained. To call sooner prior to next visit it any questions/concerns arise. Plan Of Treatment Pending Test Test Name Order Date Microalb/Creat Ratio, Randm Ur 8 Lipid Panel 10/27/2017 Comp. Metabolic Panel (14) 10/27/2017 CBC 10/27/2017 X ray : LS Spine 05/29/2023 Ultrasound : Artery Doppler Low Ext Righ t 05/20/2023 EKG 10/15/2021 25OH VITAMIN D 10/15/2021 AST (SGOT) 11/21/2021 CBC (COMPLETE BLOOD COUNT) 06/02/2020 CBC (COMPLETE BLOOD COUNT) 11/02/2019 CBC (COMPLETE BLOOD COUNT) 10/15/2021 CBC (COMPLETE BLOOD COUNT) 05/21/2021 CBC (COMPLETE BLOOD COUNT) 04/27/2019 CBC (COMPLETE BLOOD COUNT) 09/01/2018 COMPREHENSIVE METABOLIC PANEL 09/01/2018 COMPREHENSIVE METABOLIC PANEL 04/27/2019 COMPREHENSIVE METABOLIC PANEL 05/21/2021 COMPREHENSIVE METABOLIC PANEL 10/15/2021 COMPREHENSIVE METABOLIC PANEL 06/02/2020 COMPREHENSIVE METABOLIC PANEL 11/02/2019 HEMOGLOBIN A1C 11/02/2019 HEMOGLOBIN A1C 10/27/2017 HEMOGLOBIN A1C 06/02/2020 HEMOGLOBIN A1C 11/26/2022 HEMOGLOBIN A1C 10/15/2021 HEMOGLOBIN A1C 05/21/2021 HEMOGLOBIN A1C 04/27/2019 LIPID PANEL 05/21/2021 LIPID PANEL 04/27/2019 LIPID PANEL 09/01/2018 LIPID PANEL 10/15/2021 LIPID PANEL 06/02/2020 LIPID PANEL 11/02/2019 PSA, SCREEN 10/15/2021 TSH 10/15/2021 URINALYSIS, COMPLETE [...] WALTERS, 02/24/2025 11:15:00 AM, [address], [place], [address], Insurance Providers Payer Name Payer Address Payer Phone Subscriber Number Group Number Insured Name Patient Relationship to Insured Coverage Start Date Coverage End Date Medicare Part B J14 [address] [place] [address] [phone] [id number] IRVIN SUAZO Self - patient is the insured [employer] [address] [place] [address] [phone] [id number] IRVIN SUAZO Self - patient is the insured Medical (General) History Medical History History ICD Code Chronic kidney disease, stage 3b N18.32 Essential (primary) hypertension I10 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
--- OUTSIDE RECORDS SUMMARY | 2025-02-04 11:04 | XMS_ITS ---
Author Organization [facility] Address [address] [place] [address] Care Team Providers Care Manganese Heater Name Role Phone CHRISTINA WALTERS Unavailable [phone] REASON FOR VISIT depression Encounters Encounter Location Date Provider Diagnosis [facility] [address] [place] [address] 07/01/2024 CHRISTINA WALTERS Plan Of Treatment Next Appt Details Provider Name:CHRISTINA WALTERS, 02/24/2025 11:15:00 AM, [address] , [place], [address], Progress Notes * IRVIN SUAZODOB:[birth year] (80 yo M)Acc No.[id number]:07/01/2024 Progress Notes Patient:?IRVIN SUAZOSarah Cooley Provider:?CHRISTINA WALTERS PA-C :1945???Age:79 Y???Sex:Male Otto e:07/01/2024 Address:[address] [id number] Subjective: * Chief Complaints: * ???1. Depression. * Medical History:? Objective: * Vitals:? Assessment: Plan: * Treatment: * Billing Information: * Visit Code:? * Procedure Codes:? Care Plan Details* * Electronic signature of HADLEY WALTERS PA-C on 02/04/2025 at 11:03 AM EDT Sign off status: Pending * Provider:?CHRISTINA WALTERS PA-C Date:?07/01 Generated for Misaeli aniyah/Ryan/eTransmitting on:?02/04/2025 11:03 AM EDT
--- NOTE | 2025-02-04 11:06 | MHC.OFFVISCO ---
Intake Intake Visit Reasons: Anticoagulation Allergies lovenox Allergy (Severe, Uncoded 01/07/25 10:58) bleeding morphine Allergy (Severe, Uncoded 01/07/25 10:58) Rash kepra Adverse Reaction (Severe, Uncoded 01/07/25 10:58) Drowsy Medication List - Last Reconciled 02/04/25 by Deepika Payne, RN amoxicillin 2,000 mg PO ONCE PRN azathioprine 150 mg PO DAILY calcium carbonate-vitamin D3 600 mg-10 mcg (400 unit) caps PO DAILY cholecalciferol (vitamin D3) 25 mcg PO DAILY finasteride 5 mg PO DAILY gabapentin 600 mg PO BID metoprolol tartrate 12.5 mg PO BID multivitamin 1 tab PO DAILY nitrofurantoin monohyd/m-cryst 100 mg caps PO omega 8-uvt-lxd-fish oil 1,000 (120-180) mg (Fish Oil) 1 cap PO BID simvastatin 40 mg PO BEDTIME tamsulosin 0.8 mg PO DAILY triamcinolone acetonide 0.1% 1 appl topical DAILY PRN warfarin 2.5 mg See Protocol PO DAILY Nursing Note INR: 4.0?out of therapeutic range of 2.5-3.5 Medications and supplements reviewed Patient status: feels well Medications or supplements: no changes Diet: no changes Denies any signs and symptoms of bleeding or clotting or unusual bruising Bleeding, bruising, clotting discussed Nutritional guidance given: to have a serving of greens today Dose: decrease today's dose to 5mg (7.5mg) then resume usual dose of 5mg X 4 days and 7.5mg X 3 days (M/W/) F/U INR Date: 3 weeks?? Patient verbalizing understanding of instructions given. 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 Illness/Depression: No Questionnaires HAS-BLED Does the patient had uncontrolled Hypertension?: No Does the patient have renal disease?: Yes Does the patient have liver disease?: No Does the patient have a history of stroke?: No Has the patient had major bleeding or predisposition to bleeding?: No Does the patient have labile INRs?: No Is the patient over 65 years of age?: Yes Is the patient on medications that gives them a predisposition to bleeding?: Yes Does the patient use alcohol?: No HAS-BLED Score: 3 CHADSVASC Age: 75 or over Gender: Male Does the patient have a history of CHF?: No Does the patient have a history of Hypertension?: Yes Does the patient have a history of Stroke/TIA/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 ) Does the patient have a history of Vascular Disease (prior PR, PAD or aortic plaque)?: No Does the patient have a history of Diabetes?: Yes (borderline-diet controlled) CHADS VACS Score: 6 Delvin Prediction Score Rsk VTE Active Cancer: No Previous VTE, excluding superficial vein thrombosis: Yes Reduced mobility: Yes 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) With-in last month Trauma and/or Surgery: No Elderly 70 year or older: Yes Heart and/or Respiratory Failure: No Acute Myocardial infarction and/or Ischemic Stroke: No Acute Infection and/or Rheumatologic Disorder: No Obesity (BMI 30 or greater): Yes Ongoing Hormonal Treatment: No Score: 11 Delvin Score less than 4; Low Risk of VTE Delvin Score 4 or greater; High Risk of VTE Coding Level of Care Code Est Patient Level 1 Diagnoses Current use of anticoagulant therapy Z79.01 Assessment & Plan Assessment & Plan (1) Current use of anticoagulant therapy: Code(s): Z79.01 - dietitian teacher (current) use of anticoagulants Category: Medical
== END 2025-02-04 11:28 | disposition home or self-care (01) ==
LOC: HO.ACS 10:35
PROVIDERS: PCP Physician Assistant Medical; Visit Provider Internal Medicine Medical Oncology
DX: Z79.01 Long term (current) use of anticoagulants (principal)

== ENCOUNTER → 2025-02-04 10:35 | Outpatient (BNVA) | payer MEDICARE, SELFPAY | PROVIDERS: PCP Physician Assistant Medical; Visit Provider Internal Medicine Medical Oncology | DX: I26.99 Other pulmonary embolism without acute cor pulmonale (principal); Z79.01 Long term (current) use of anticoagulants; Z51.81 Encounter for therapeutic drug level monitoring | CPT/HCPCS: 85610; 99211 ==

== ENCOUNTER 2025-02-25 10:20 | Outpatient (AMB) | payer MEDICARE, SELFPAY ==
[2025-02-25 10:45] LABS: Prothrombin Time Whole Bld POC 45.3 sec (11.1-13.5); ~PT, ~INR - Anti Coag Clinic 3.8 (0.9-1.1)
--- NOTE | 2025-02-25 10:50 | MHC.OFFVISCO ---
Intake Intake Visit Reasons: Anticoagulation Allergies lovenox Allergy (Severe, Uncoded 02/25/25 10:41) bleeding morphine Allergy (Severe, Uncoded 02/25/25 10:41) Rash kepra Adverse Reaction (Severe, Uncoded 02/25/25 10:41) Drowsy Medication List - Last Reconciled 02/25/25 by Deepika Payne, RN amoxicillin 2,000 mg PO ONCE PRN azathioprine 150 mg PO DAILY calcium carbonate-vitamin D3 600 mg-10 mcg (400 unit) caps PO DAILY cholecalciferol (vitamin D3) 25 mcg PO DAILY finasteride 5 mg PO DAILY gabapentin 600 mg PO BID metoprolol tartrate 12.5 mg PO BID multivitamin 1 tab PO DAILY nitrofurantoin monohyd/m-cryst 100 mg caps PO omega 3-lct-esr-fish oil 1,000 (120-180) mg (Fish Oil) 1 cap PO BID simvastatin 40 mg PO BEDTIME tamsulosin 0.8 mg PO DAILY triamcinolone acetonide 0.1% 1 appl topical DAILY PRN warfarin 2.5 mg See Protocol PO DAILY Nursing Note INR: 3.8 in therapeutic range of 2.5-3.5 Medications and supplements reviewed No changes in health, diet, medications, or supplements, Denies any signs and symptoms of bleeding or bruising or clotting. Bleeding, bruising, clotting discussed Nutritional guidance given to have a serving of greens today Dose: 5mg X 4 days and 7.5mg X 3 days (M/W/F) F/U INR: 3 weeks Patient verbalizes understanding of instructions given Anti-Coag Initial Assessment Social Hx Patient Tobacco Use Status: Never used Tobacco alcohol intake: current Alcohol intake frequency: holidays/special occasions only Cardiovascular Hx: HTN Lung Disease HX: DVT/PE and Other Endocrine Hx: Diabetes and Autoimmune disorders Blood Disorder Hx: Hyperlipidemia and Hepatitis Hx: Kidney Disease and Prostate Neurological Hx: Epilepsy/Seizures and Stroke/TIA Cancer HX: No Psych. Illness/Depression: No Coding Level of Care Code Est Patient Level 1 Diagnoses Current use of anticoagulant therapy Z79.01 Assessment & Plan Assessment & Plan (1) Current use of anticoagulant therapy: Code(s): Z79.01 - residential (current) use of anticoagulants Category: Medical
--- OUTSIDE RECORDS SUMMARY | 2025-02-25 11:06 | XMS_ITS | Clinical Summary ---
Author Organization [facility] Address [address] [place] [phone] Phone Care Team Providers Care Residential Real Estate Agent Name Role Phone Stella Lemus Primary Care Provider [phone] Allergies Active Allergy Reactions Criticality Noted Date [...] Office Visit [facility] [address] [facility] [address] [place] [address] Joaquin Guaman MD Stage 3b [...] Visit [facility] [address] [address] [place] [address] [address] Health Maintenance Due Date Last [...] 3:12 PM EDT) Protein, Ur 144 mg/dL [facility] Urine Protein/Creati nine Ratio 1.37(H) <=0.20 mg/mg creat [facility] Creatinine, Urine 105.0 mg/dL [facility] Urine specimen (specimen) Urine specimen obtained by clean catch procedure / Unknown 01/25/2025 3:12 PM EDT 01/25/2025 4:11 PM EDT Joaquin Guaman MD LAB URINE ORDERABLES Final Re sult Performing Organization Address [facility] Co de Phone Number [facility] [address] [place] [address] * (ABNORMAL) Urine Albumin / Creatinine Ratio (01/25/2025 3:12 PM EDT) Creatinine, Urine 105.0 mg/dL [facility] Microalbumin Urine Random 868.0(H) 0.0 - 29.0 mg/L [facility] Microalbumin/Cre atinine Ratio 827(H) <30 mg/g creat [facility] Urine specimen (specimen) Urine specimen obtained by clean catch procedure / Unknown 01/25/2025 3:12 PM EDT 01/25/2025 4:11 PM EDT Joaquin Guaman MD LAB URINE ORDERABLES Final Re sult Performing Organization Address City/[facility]/ZIP Co de Phone Number [facility] [address] [place] [address] * (ABNORMAL) Urinalysis Reflex Microscopic (01/25/2025 3:12 PM EDT) Specific [place] 1.015 1.003 - 1.030 [facility] pH Urine 7.0 5.0 - 8.0 pH [facility] LEUKOCYTES, URINE Moderate(A) Negative [facility] Nitrite, Urine Positive(A) Negative [facility] Protein, Urine 100(A) <=Trace mg/dL [facility] Glucose Urine Negative Negative mg/dL [facility] Ketones, Urine Negative Negative mg/dL [facility] Urobilinogen Urine 0.2 0.2 - 1.0 mg/dL [facility] Bilirubin Urine Negative Negative [facility] Blood Urine Small(A) Negative [facility] RBC, Urine 5.1(H) 0 - 4 /HPF [facility] WBC, Urine 138.2(H) 0 - 4 /HPF [facility] Squamous Epithelial, Urine 15 0 - 60 /LPF [facility] Crystals, Urine Heavy Amorphous Urate crystals. /LPF [facility] Bacteria, Urine Few(A) Negative /HPF [facility] Hyaline Casts, UA 0 0 - 3 /LPF [facility] 01/25/2025 3:12 PM EDT 01/25/2025 4:12 PM EDT us Joaquin Guaman MD LAB URINE ORDERABLES Final Re sult [facility] [address] [place] [address] * Vitamin D 25 Hydroxy (01/25/2025 3:07 PM EDT) Vitamin D, 25-OH, Total 49.0 30.0 - 80.0 ng/mL [facility] Blood specimen (specimen) Venous blood / Unknown 01/25/2025 3:07 PM EDT 01/25/2025 4:08 PM EDT Joaquin Guaman MD LAB BLOOD ORDERABLES Final Re sult Performing Organization Address City/[facility]/ZIP Co de Phone Number [facility] [address] [place] [phone] * (ABNORMAL) PTH, Intact (01/25/2025 3:07 PM EDT) PTH 107.7(H) 18.5 - 88.0 pcg/mL [facility] Blood specimen (specimen) Venous blood / Unknown 01/25/2025 3:07 PM EDT 01/25/2025 4:08 PM EDT us Joaquin Guaman MD LAB BLOOD ORDERABLES Final Re sult Performing Organization Address [facility] Co de Phone Number [facility] [address] [place] [phone] * Magnesium (01/25/2025 3:07 PM EDT) Magnesium 2.2 1.9 - 2.6 mg/dL [facility] Blood specimen (specimen) Venous blood / Unknown 01/25/2025 3:07 PM EDT 01/25/2025 4:08 PM EDT us Joaquin Guaman MD LAB BLOOD ORDERABLES Final Re sult Performing Organization Address City/[facility]/ZIP Co de Phone Number [facility] [address] [place] [address] * (ABNORMAL) Renal Function Panel (01/25/2025 3:07 PM EDT) Sodium 140 133 - 145 mmol/L [facility] Potassium 4.5 3.5 - 5.5 mmol/L [facility] Chloride 103 96 - 110 mmol/L [facility] Bicarbonate (CO2) 29 21 - 32 mmol/L [facility] Anion Gap 8 3 - 11 [facility] Glucose 95 70 - 100 mg/dL [facility] BUN 30(H) 5 - 25 mg/dL [facility] Creatinine Serum 1.95(H) 0.70 - 1.30 mg/dL [facility] eGFR 34(L) >=60 mL/min/1. 73m2 [facility] Comment:Calculation based on the Chronic Kidney Disease Epidemiology Collaboration (CKD-EPI) equation refit without adjustment for race. BUN/Creatinine Ratio 15.4 [facility] Albumin 3.4 3.2 - 5.0 g/dL [facility] Calcium 9.5 8.5 - 10.5 mg/dL [facility] Phosphorus 3.0 2.5 - 4.5 mg/dL [facility] Blood specimen (specimen) Venous blood / Unknown 01/25/2025 3:07 PM EDT 01/25/2025 4:08 PM EDT us Joaquin Guaman MD LAB BLOOD ORDERABLES Final Re sult NEMESIO [facility] [address] [place] [address] from Last 3 Months Insurance [facility] Medicare [facility] Medicare Care Teams Residential Real Estate Agent Relationship Specialty Start Date End Date Stella Lemus [address] [facility] [place] [address] PCP - General 08/05/23
== END 2025-02-25 10:52 | disposition home or self-care (01) ==
LOC: HO.ACS 10:20
PROVIDERS: PCP Physician Assistant Medical; Visit Provider Internal Medicine Medical Oncology
DX: Z79.01 Long term (current) use of anticoagulants (principal)

== ENCOUNTER → 2025-02-25 10:20 | Outpatient (BNVA) | payer MEDICARE, SELFPAY | PROVIDERS: PCP Physician Assistant Medical; Visit Provider Internal Medicine Medical Oncology | DX: I26.99 Other pulmonary embolism without acute cor pulmonale (principal); Z79.01 Long term (current) use of anticoagulants; Z51.81 Encounter for therapeutic drug level monitoring | CPT/HCPCS: 85610; 99211 ==

== ENCOUNTER 2025-03-18 10:13 | Outpatient (REF) | payer MEDICARE, SELFPAY ==
[2025-03-18 11:46] LABS: INTERNATIONAL NORM RATIO 5.2 (0.9-1.1); Prothrombin Time 59.8 SEC (10.9-12.4)
== END 2025-03-18 10:14 | disposition home or self-care (01) ==
LOC: HO.LAB 10:13
PROVIDERS: PCP Physician Assistant Medical; Visit Provider Internal Medicine Medical Oncology
DX: Z79.01 Long term (current) use of anticoagulants (principal)
CPT/HCPCS: 36415; 85610; 99212

== ENCOUNTER 2025-03-18 10:13 | Outpatient (AMB) | payer MEDICARE, SELFPAY ==
[2025-03-18 10:44] LABS: Prothrombin Time Whole Bld POC 66.8 sec (11.1-13.5); ~PT, ~INR - Anti Coag Clinic 5.6 (0.9-1.1)
--- OUTSIDE RECORDS SUMMARY | 2025-03-18 10:53 | XMS_ITS | Clinical Summary ---
Author Organization [facility] Address [address] [place] [phone] Phone Care Team Providers Care Classification Counselor Name Role Phone Stella Lemus Primary Care Provider [phone] Allergies Active Allergy Reactions Criticality Noted Date [...] [facility] [address] [facility] [address] [place] [address] Joaquin Guaman MD Stage 3b [...] Office Visit [facility] [address] [address] [place] JuliannHORTENCIA [address] [address] Health Maintenance Due Date Last [...] 3:12 PM EDT) Protein, Ur 144 mg/dL [facility] Urine Protein/Creati nine Ratio 1.37(H) <=0.20 mg/mg creat [facility] Creatinine, Urine 105.0 mg/dL [facility] Urine specimen (specimen) Urine specimen obtained by clean catch procedure / Unknown 01/25/2025 3:12 PM EDT 01/25/2025 4:11 PM EDT Joaquin Guaman MD LAB URINE ORDERABLES Final Re sult Performing Organization Address [facility] Co de Phone Number [facility] [address] [place] [address] * (ABNORMAL) Urine Albumin / Creatinine Ratio (01/25/2025 3:12 PM EDT) Creatinine, Urine 105.0 mg/dL [facility] Microalbumin Urine Random 868.0(H) 0.0 - 29.0 mg/L [facility] Microalbumin/Cre atinine Ratio 827(H) <30 mg/g creat [facility] Urine specimen (specimen) Urine specimen obtained by clean catch procedure / Unknown 01/25/2025 3:12 PM EDT 01/25/2025 4:11 PM EDT Joaquin Guaman MD LAB URINE ORDERABLES Final Re sult Performing Organization Address City/[facility]/ZIP Co de Phone Number [facility] [address] [place] [address] * (ABNORMAL) Urinalysis Reflex Microscopic (01/25/2025 3:12 PM EDT) Specific [place] 1.015 1.003 - 1.030 [facility] pH Urine 7.0 5.0 - 8.0 pH [facility] LEUKOCYTES, URINE Moderate(A) Negative [facility] Nitrite, Urine Positive(A) Negative [facility] Protein, Urine 100(A) <=Trace mg/dL [facility] Glucose Urine Negative Negative mg/dL [facility] Ketones, Urine Negative Negative mg/dL [facility] Urobilinogen Urine 0.2 0.2 - 1.0 mg/dL [facility] Bilirubin Urine Negative Negative [facility] Blood Urine Small(A) Negative [facility] RBC, Urine 5.1(H) 0 - 4 /HPF [facility] WBC, Urine 138.2(H) 0 - 4 /HPF [facility] Squamous Epithelial, Urine 15 0 - 60 /LPF [facility] Crystals, Urine Heavy Amorphous Urate crystals. /LPF [facility] Bacteria, Urine Few(A) Negative /HPF [facility] Hyaline Casts, UA 0 0 - 3 /LPF [facility] 01/25/2025 3:12 PM EDT 01/25/2025 4:12 PM EDT us Joaquin Guaman MD LAB URINE ORDERABLES Final Re sult [facility] [address] [place] [address] * Vitamin D 25 Hydroxy (01/25/2025 3:07 PM EDT) Vitamin D, 25-OH, Total 49.0 30.0 - 80.0 ng/mL [facility] Blood specimen (specimen) Venous blood / Unknown 01/25/2025 3:07 PM EDT 01/25/2025 4:08 PM EDT Joaquin Guaman MD LAB BLOOD ORDERABLES Final Re sult Performing Organization Address City/[facility]/ZIP Co de Phone Number [facility] [address] [place] [phone] * (ABNORMAL) PTH, Intact (01/25/2025 3:07 PM EDT) PTH 107.7(H) 18.5 - 88.0 pcg/mL [facility] Blood specimen (specimen) Venous blood / Unknown 01/25/2025 3:07 PM EDT 01/25/2025 4:08 PM EDT us Joaquin Guaman MD LAB BLOOD ORDERABLES Final Re sult Performing Organization Address [facility] Co de Phone Number [facility] [address] [place] [phone] * Magnesium (01/25/2025 3:07 PM EDT) Magnesium 2.2 1.9 - 2.6 mg/dL [facility] Blood specimen (specimen) Venous blood / Unknown 01/25/2025 3:07 PM EDT 01/25/2025 4:08 PM EDT us Joaquin Guaman MD LAB BLOOD ORDERABLES Final Re sult Performing Organization Address City/[facility]/ZIP Co de Phone Number [facility] [address] [place] [address] * (ABNORMAL) Renal Function Panel (01/25/2025 3:07 PM EDT) Sodium 140 133 - 145 mmol/L [facility] Potassium 4.5 3.5 - 5.5 mmol/L [facility] Chloride 103 96 - 110 mmol/L [facility] Bicarbonate (CO2) 29 21 - 32 mmol/L [facility] Anion Gap 8 3 - 11 [facility] Glucose 95 70 - 100 mg/dL [facility] BUN 30(H) 5 - 25 mg/dL [facility] Creatinine Serum 1.95(H) 0.70 - 1.30 mg/dL [facility] eGFR 34(L) >=60 mL/min/1. 73m2 [facility] Comment:Calculation based on the Chronic Kidney Disease Epidemiology Collaboration (CKD-EPI) equation refit without adjustment for race. BUN/Creatinine Ratio 15.4 [facility] Albumin 3.4 3.2 - 5.0 g/dL [facility] Calcium 9.5 8.5 - 10.5 mg/dL [facility] Phosphorus 3.0 2.5 - 4.5 mg/dL [facility] Blood specimen (specimen) Venous blood / Unknown 01/25/2025 3:07 PM EDT 01/25/2025 4:08 PM EDT us Joaquin Guaman MD LAB BLOOD ORDERABLES Final Re sult NEMESIO [facility] [address] [place] [address] from Last 3 Months Insurance [facility] Medicare [facility] Medicare Care Teams Classification Counselor Relationship Specialty Start Date End Date Stella Lemus [address] [facility] [address] PCP - General 08/05/23
--- NOTE | 2025-03-18 11:41 | MHC.OFFVISCO ---
Intake Intake Visit Reasons: Anticoagulation Allergies lovenox Allergy (Severe, Uncoded 03/18/25 10:37) bleeding morphine Allergy (Severe, Uncoded 03/18/25 10:37) Rash kepra Adverse Reaction (Severe, Uncoded 03/18/25 10:37) Drowsy Medication List - Last Reconciled 03/18/25 by Sultana Romero RN amoxicillin 2,000 mg PO ONCE PRN azathioprine 150 mg PO DAILY calcium carbonate-vitamin D3 600 mg-10 mcg (400 unit) caps PO DAILY cholecalciferol (vitamin D3) 25 mcg PO DAILY finasteride 5 mg PO DAILY gabapentin 600 mg PO BID metoprolol tartrate 12.5 mg PO BID multivitamin 1 tab PO DAILY nitrofurantoin monohyd/m-cryst 100 mg caps PO omega 5-ojx-llx-fish oil 1,000 (120-180) mg (Fish Oil) 1 cap PO BID simvastatin 40 mg PO BEDTIME tamsulosin 0.8 mg PO DAILY triamcinolone acetonide 0.1% 1 appl topical DAILY PRN warfarin 2.5 mg See Protocol PO DAILY Nursing Note INR 5.6 POC/ LAB 5.2 out of therapeutic range Medications and supplements reviewed Patient status: Pt had decreased appetite the past week especially with the heat, normal bowel movements, no unusual bleeding or bruising Medications or supplements: no charges Diet: fair - decreased Denies any signs and symptoms of bleeding or clotting or unusual bruising Bleeding, bruising, clotting discussed Nutritional guidance given: eat greens today Dose: hold warfarin dose today decrease dose tomorrow 2.5mg then 5mg friday F/U INR Date : recheck INR friday03/21/2025 ? Patient verbalizing understanding of instructions given. t/c [id number] to PCP spoke with Macy who will convey msg to PCP regarding pt status and plan of care Anti-Coag Initial Assessment Social Hx Patient Tobacco Use Status: Never used Tobacco alcohol intake: current Alcohol intake frequency: holidays/special occasions only Cardiovascular Hx: HTN Lung Disease HX: DVT/PE and Other Endocrine Hx: Diabetes and Autoimmune disorders Blood Disorder Hx: Hyperlipidemia and Hepatitis Hx: Kidney Disease and Prostate Neurological Hx: Epilepsy/Seizures and Stroke/TIA Cancer HX: No Psych. Illness/Depression: No Coding Level of Care Code Est Patient Level 2 Diagnoses Current use of anticoagulant therapy Z79.01 Comment complex sent to lab call to PCP Results AMB INR Fingerstick AMB INR Fingerstick 5.6 Last Edit by Sultana Romero RN on 03/18/25 11:24 manual poc INR Assessment & Plan Assessment & Plan (1) Current use of anticoagulant therapy: Code(s): Z79.01 - group home (current) use of anticoagulants Category: Medical Orders: Orders Prothrombin Time INR Today Z79.01 - terminal system operator (current) use of anticoagulants
== END 2025-03-18 11:50 | disposition home or self-care (01) ==
LOC: HO.ACS 10:13
PROVIDERS: PCP Physician Assistant Medical; Visit Provider Internal Medicine Medical Oncology
DX: Z79.01 Long term (current) use of anticoagulants (principal)

== ENCOUNTER 2025-03-21 10:51 | Outpatient (AMB) | payer MEDICARE, SELFPAY ==
[2025-03-21 11:20] LABS: Prothrombin Time Whole Bld POC 26.6 sec (11.1-13.5); ~PT, ~INR - Anti Coag Clinic 2.2 (0.9-1.1)
--- NOTE | 2025-03-21 11:31 | MHC.OFFVISCO ---
Intake Intake Visit Reasons: Anticoagulation Allergies lovenox Allergy (Severe, Uncoded 03/21/25 11:14) bleeding morphine Allergy (Severe, Uncoded 03/21/25 11:14) Rash kepra Adverse Reaction (Severe, Uncoded 03/21/25 11:14) Drowsy Medication List - Last Reconciled 03/21/25 by Sultana Romero RN amoxicillin 2,000 mg PO ONCE PRN azathioprine 150 mg PO DAILY calcium carbonate-vitamin D3 600 mg-10 mcg (400 unit) caps PO DAILY cholecalciferol (vitamin D3) 25 mcg PO DAILY finasteride 5 mg PO DAILY gabapentin 600 mg PO BID metoprolol tartrate 12.5 mg PO BID multivitamin 1 tab PO DAILY nitrofurantoin monohyd/m-cryst 100 mg caps PO omega 3-fmm-yfz-fish oil 1,000 (120-180) mg (Fish Oil) 1 cap PO BID simvastatin 40 mg PO BEDTIME tamsulosin 0.8 mg PO DAILY triamcinolone acetonide 0.1% 1 appl topical DAILY PRN warfarin 2.5 mg See Protocol PO DAILY Nursing Note INR 2.2 out of therapeutic range- just ate small serving of cooked broccoli yesterday Medications and supplements reviewed Patient status: Well, offers no complaints Medications or supplements: no changes Diet: good eats well Denies any signs and symptoms of bleeding or clotting or unusual bruising Bleeding, bruising, clotting discussed Nutritional guidance given: avoid greens today and tomorrow Dose: decreased from last week 7.5mg x 2 days/ 5mg x 5 days F/U INR Date: 1 week?? Patient verbalizing understanding of instructions given. 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
--- OUTSIDE RECORDS SUMMARY | 2025-03-21 11:38 | XMS_ITS | Clinical Summary ---
Author Organization [facility] Address [address] [place] [phone] Phone Care Team Providers Care Security Analyst Name Role Phone Stella Lemus Primary Care Provider [phone] Allergies Active Allergy Reactions Criticality Noted Date [...] Office Visit [facility] [address] [facility] [address] [place] [address] Joaquin Guaman MD Stage 3b [...] Office Visit [facility] [address] [address] [place] JuliannHORTENCIA [address] [address] Health Maintenance Due Date Last [...] 3:12 PM EDT) Protein, Ur 144 mg/dL [facility] Urine Protein/Creati nine Ratio 1.37(H) <=0.20 mg/mg creat [facility] Creatinine, Urine 105.0 mg/dL [facility] Urine specimen (specimen) Urine specimen obtained by clean catch procedure / Unknown 01/25/2025 3:12 PM EDT 01/25/2025 4:11 PM EDT Joaquin Guaman MD LAB URINE ORDERABLES Final Re sult Performing Organization Address [facility] Co de Phone Number [facility] [address] [place] [address] * (ABNORMAL) Urine Albumin / Creatinine Ratio (01/25/2025 3:12 PM EDT) Creatinine, Urine 105.0 mg/dL [facility] Microalbumin Urine Random 868.0(H) 0.0 - 29.0 mg/L [facility] Microalbumin/Cre atinine Ratio 827(H) <30 mg/g creat [facility] Urine specimen (specimen) Urine specimen obtained by clean catch procedure / Unknown 01/25/2025 3:12 PM EDT 01/25/2025 4:11 PM EDT Joaquin Guaman MD LAB URINE ORDERABLES Final Re sult Performing Organization Address City/[facility]/ZIP Co de Phone Number [facility] [address] [place] [address] * (ABNORMAL) Urinalysis Reflex Microscopic (01/25/2025 3:12 PM EDT) Specific [place] 1.015 1.003 - 1.030 [facility] pH Urine 7.0 5.0 - 8.0 pH [facility] LEUKOCYTES, URINE Moderate(A) Negative [facility] Nitrite, Urine Positive(A) Negative [facility] Protein, Urine 100(A) <=Trace mg/dL [facility] Glucose Urine Negative Negative mg/dL [facility] Ketones, Urine Negative Negative mg/dL [facility] Urobilinogen Urine 0.2 0.2 - 1.0 mg/dL [facility] Bilirubin Urine Negative Negative [facility] Blood Urine Small(A) Negative [facility] RBC, Urine 5.1(H) 0 - 4 /HPF [facility] WBC, Urine 138.2(H) 0 - 4 /HPF [facility] Squamous Epithelial, Urine 15 0 - 60 /LPF [facility] Crystals, Urine Heavy Amorphous Urate crystals. /LPF [facility] Bacteria, Urine Few(A) Negative /HPF [facility] Hyaline Casts, UA 0 0 - 3 /LPF [facility] 01/25/2025 3:12 PM EDT 01/25/2025 4:12 PM EDT us Joaquin Guaman MD LAB URINE ORDERABLES Final Re sult [facility] [address] [place] [address] * Vitamin D 25 Hydroxy (01/25/2025 3:07 PM EDT) Vitamin D, 25-OH, Total 49.0 30.0 - 80.0 ng/mL [facility] Blood specimen (specimen) Venous blood / Unknown 01/25/2025 3:07 PM EDT 01/25/2025 4:08 PM EDT Joaquin Guaman MD LAB BLOOD ORDERABLES Final Re sult Performing Organization Address City/[facility]/ZIP Co de Phone Number [facility] [address] [place] [phone] * (ABNORMAL) PTH, Intact (01/25/2025 3:07 PM EDT) PTH 107.7(H) 18.5 - 88.0 pcg/mL [facility] Blood specimen (specimen) Venous blood / Unknown 01/25/2025 3:07 PM EDT 01/25/2025 4:08 PM EDT us Joaquin Guaman MD LAB BLOOD ORDERABLES Final Re sult Performing Organization Address [facility] Co de Phone Number [facility] [address] [place] [phone] * Magnesium (01/25/2025 3:07 PM EDT) Magnesium 2.2 1.9 - 2.6 mg/dL [facility] Blood specimen (specimen) Venous blood / Unknown 01/25/2025 3:07 PM EDT 01/25/2025 4:08 PM EDT us Joaquin Guaman MD LAB BLOOD ORDERABLES Final Re sult Performing Organization Address City/[facility]/ZIP Co de Phone Number [facility] [address] [place] [address] * (ABNORMAL) Renal Function Panel (01/25/2025 3:07 PM EDT) Sodium 140 133 - 145 mmol/L [facility] Potassium 4.5 3.5 - 5.5 mmol/L [facility] Chloride 103 96 - 110 mmol/L [facility] Bicarbonate (CO2) 29 21 - 32 mmol/L [facility] Anion Gap 8 3 - 11 [facility] Glucose 95 70 - 100 mg/dL [facility] BUN 30(H) 5 - 25 mg/dL [facility] Creatinine Serum 1.95(H) 0.70 - 1.30 mg/dL [facility] eGFR 34(L) >=60 mL/min/1. 73m2 [facility] Comment:Calculation based on the Chronic Kidney Disease Epidemiology Collaboration (CKD-EPI) equation refit without adjustment for race. BUN/Creatinine Ratio 15.4 [facility] Albumin 3.4 3.2 - 5.0 g/dL [facility] Calcium 9.5 8.5 - 10.5 mg/dL [facility] Phosphorus 3.0 2.5 - 4.5 mg/dL [facility] Blood specimen (specimen) Venous blood / Unknown 01/25/2025 3:07 PM EDT 01/25/2025 4:08 PM EDT us Joaquin Guaman MD LAB BLOOD ORDERABLES Final Re sult NEMESIO [facility] [address] [place] [address] from Last 3 Months Insurance [facility] Medicare [facility] Medicare Care Teams Security Analyst Relationship Specialty Start Date End Date Stella Lemus [address] [facility] [place] [address] PCP - General 08/05/23
== END 2025-03-21 11:37 | disposition home or self-care (01) ==
LOC: HO.ACS 10:51
PROVIDERS: PCP Physician Assistant Medical; Visit Provider Internal Medicine Medical Oncology
DX: Z79.01 Long term (current) use of anticoagulants (principal)

== ENCOUNTER → 2025-03-21 10:51 | Outpatient (BNVA) | payer MEDICARE, SELFPAY | PROVIDERS: PCP Physician Assistant Medical; Visit Provider Internal Medicine Medical Oncology | DX: I26.99 Other pulmonary embolism without acute cor pulmonale (principal); Z79.01 Long term (current) use of anticoagulants; Z51.81 Encounter for therapeutic drug level monitoring | CPT/HCPCS: 85610; 99211 ==

== ENCOUNTER 2025-03-29 11:11 | Outpatient (AMB) | payer MEDICARE, SELFPAY ==
[2025-03-29 11:52] LABS: Prothrombin Time Whole Bld POC 48.4 sec (11.1-13.5); ~PT, ~INR - Anti Coag Clinic 4.0 (0.9-1.1)
--- NOTE | 2025-03-29 11:56 | MHC.OFFVISCO ---
Intake Intake Visit Reasons: Anticoagulation Allergies lovenox Allergy (Severe, Uncoded 03/29/25 11:34) bleeding morphine Allergy (Severe, Uncoded 03/29/25 11:34) Rash kepra Adverse Reaction (Severe, Uncoded 03/29/25 11:34) Drowsy Medication List - Last Reconciled 03/29/25 by Sultana Romero RN amoxicillin 2,000 mg PO ONCE PRN azathioprine 150 mg PO DAILY calcium carbonate-vitamin D3 600 mg-10 mcg (400 unit) caps PO DAILY cholecalciferol (vitamin D3) 25 mcg PO DAILY finasteride 5 mg PO DAILY gabapentin 600 mg PO BID metoprolol tartrate 12.5 mg PO BID multivitamin 1 tab PO DAILY nitrofurantoin monohyd/m-cryst 100 mg caps PO omega 8-kac-zqc-fish oil 1,000 (120-180) mg (Fish Oil) 1 cap PO BID simvastatin 40 mg PO BEDTIME tamsulosin 0.8 mg PO DAILY triamcinolone acetonide 0.1% 1 appl topical DAILY PRN warfarin 2.5 mg See Protocol PO DAILY Nursing Note INR 4.0 out of therapeutic range Medications and supplements reviewed Patient status: likes grapefruits and usually has one daily - enc to not take with meds and to wait, enc to ask pharmacist about it Medications or supplements: no changes Diet: has been eating less during the heat Denies any signs and symptoms of bleeding or clotting or unusual bruising Bleeding, bruising, clotting discussed Nutritional guidance given: add broccoli x 1 day / week and weekly salad bowl Dose: 2.5mg today/ 7.5mgx 2 days/ 5mg x 5 days F/U INR Date: 1 week ?? Patient verbalizing understanding of instructions given. 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
--- OUTSIDE RECORDS SUMMARY | 2025-03-29 12:16 | XMS_ITS | Patient Health Record ---
Author Organization [facility] [address] Address [address] [place] [address] Care Team Providers Care Cavalry Officer Name Role Phone CHRISTINA WALTERS Unavailable [phone] JUMANA INFANTE Unavailable [phone] Allergies Allergen (clinical drug ingredient) Drug/Non Drug Allergy documented on EMR Reaction Allergy Type Onset Date Status morphine morphine (uncoded) Unknown Allergy A ctive enoxaparin Lovenox BLEEDS Drug Allergy Active Results Component Value Reference Range Notes CBC WITH AUTO DIFF Reviewed date:05/25/2024 12:51:27 PM Interpretation: Performing Lab: Notes/Report: Original Ordering Provider: CHRISTINA SANCHEZ) FABBY [employer], a member of [address] [address] [employer] - Dora Marin MD WBC 6.4 4.8-10.8 x10-3/uL RBC 4.8 4.5-5.5 [...] x10-3/uL IMMATURE GRANULOCYTES # 0.03 0-0.03 x10-3/uL GLYCOHEMOGLOBIN PROFILE Reviewed date:05/25/2024 12:53:08 PM Interpretation: Performing Lab: Notes/Report: Original Ordering Provider: CHRISTINA WALTERS PA-C (EMERY) [employer], a member of [address] [address] [employer] - Dora Marin MD GLYCATED HEMOGLOBIN A1C 6.4 <6.5 % ESTIMATED AVERAGE GLUCOSE 137 COMPREHENSIVE METABOLIC PANE L Reviewed date:05/25/2024 01:05:19 PM Interpretation: Performing Lab: Notes/Report: Note Original Ordering Provider: CHRISTINA WALTERS PA-C (EMERY) [employer], a member of [address] [address] [employer] - Dora Marin MD GLUCOSE 190 70-100 [...] Original Ordering Provider: CHRISTINA WALTERS PA-C (EMERY) [employer], a member of [address] [address] [employer] - Dora Marin MD VITAMIN D 25 HYDROXY Reviewed date:07/27/2024 01:28:46 [...] 1.01 <=0.20 mg/mg creat Creatinine, Urine 105.0 CBC WITH AUTO DIFFERENTIAL Reviewed date:02/24/2025 08:00:24 AM Interpretation: Performing Lab: Notes/Report: WBC 6.8 4.8-10.8 K/mcL RBC 4.70 4.50-5.50 M/mcL Hemoglobin 14.4 13.5-17.5 g/dL Hematocrit 46.2 42.0-54.0 % MCV 98.9 79.0-98.0 FL MCH 30.8 27.0-32.0 pcg MCHC 31.2 32.0-37.0 g/dL RDW 15.1 11.0-15.0 % Platelets 173 130-400 K/mcL MPV 10.9 7.0-11.0 FL NRBC 0.0 <1.0 % NRBC Absolute 0.00 <0.10 K/mcL Neutrophils Relative 60.1 Lymphocytes Relative 27.5 Monocytes Relative 7.6 Eosinophils Relative 3.8 Basophils Relative 0.6 Immature Granulocytes Relative 0.4 Neutrophils Absolute 4.09 1.50-7.00 K/mcL Lymphocytes Absolute 1.87 1.00-5.00 K/mcL Monocytes Absolute 0.52 0.20-1.00 K/mcL Eosinophils Absolute 0.26 0.00-0.50 K/mcL Basophils Absolute 0.04 0.00-0.20 K/mcL Immature Granulocytes Absolute 0.03 0.00-0.03 K/mcL COMPREHENSIVE METABOLIC PANE L Reviewed date:02/24/2025 08:00:24 AM Interpretation: Performing Lab: Notes/Report: Sodium 141 133-145 mmol/L Potassium 4.5 3.5-5.5 mmol/L Chloride 108 96-110 mmol/L CO2 29 21-32 mmol/L Anion Gap 4 3-11 Glucose 106 70-100 mg/dL BUN 32 5-25 mg/dL Creatinine 1.71 0.70-1.30 mg/dL eGFR 39 >=60 mL/min/1.73m2 Calculati on based on the Chronic Kidney Disease Epidemiology Collaboration (CKD-EPI) equation refit without adjustment for race. BUN/Creatinine Ratio 18.7 Calcium 9.7 8.5-10.5 mg/dL AST (SGOT) 30 10-42 unit/L ALT (SGPT) 20 10-60 unit/L Alkaline Phosphatase 69 42-121 unit/L Total Protein 7.3 6.0-8.0 g/dL Albumin 3.4 3.2-5.0 g/dL Total Bilirubin 0.8 0.0-1.4 mg/dL Reason For Referral No Information Medications Medication SIG (Take, Route, Frequency, Duration) Notes Start Date End Date Status OneTouch Ultra - USE TO TEST DAILY; Duration: 90 Active Nitrofurantoin Monohyd Macro 100 MG Oral; Duration: 90 Days Active Tamsulosin HCl 0.4 MG 2 capsules Orally Once a day Active Fish Oil 1000 MG 1 capsule Orally Once a day; Duration: 30 day(s) Active Metoprolol Tartrate 25 mg TAKE ONE-HALF (1/2) TABLET TWICE A DAY WITH FOOD Active Multivitamin - Orally Activ e Warfarin Sodium 2.5 mg TAKE 1 TO 3 TABLETS ONCE A DAY DIRECTED BY PRIMARY CARE PHYSICIAN Active Vitamin D 50 MCG (2000 UT) 1 tablet Orally Once a day Active Finasteride 5 MG 0.5 tablet Orally twice a day; Duration: 90 days Active Lancets 30G - check twice a day dx e11.9; Duration: 30 days 08/23/2024 Active Amoxicillin 1 tablet before procedure Active OneTouch Ultra Blue - USE TO TEST BLOOD SUGAR In Vitro DX E11.9 ONCE DAILY; Duration: 0 Active OneTouch Delica Plus [id number] - USE DIRECTED TO TEST BLOOD GLUCOSE ONCE EVERY DAY; Duration: 90 Active azaTHIOprine 50 MG as directed Orally three time daily Active Lancets 30G - one lancet in vitro twice daily DX E11.9; Duration: 90 days 07/04/2023 Active Calcium + D 500-1000-40 MG-UNT-MCG Orally Active Gabapentin 600 MG TAKE 1 TABLET TWICE A DAY; Duration: 90 days Active Simvastatin 40 mg TAKE 1 TABLET [...] mo smokes , second hand sm om Problems Problem Type SNOMED Code ICD Code Onset Dates Problem Status W/U Status Risk Notes Problem Anemia in chronic kidney disease (130059892) 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) Active confirmed Problem Diabetic renal disease (671983510) Type 2 diabetes mellitus with diabetic chronic kidney disease (E11.22) Active confirmed Problem Hyperglycemia due to type 2 diabetes mellitus (133421749628303) Type 2 diabetes mellitus with hyperglycemia (E11.65) Active confirmed Problem Disorder due to type 2 diabetes mellitus (075919724) Type 2 diabetes mellitus with unspecified complications (E11.8) Active confirmed Problem Type II diabetes mellitus without complication (262486612) Type 2 diabetes mellitus without complications (E11.9) Active confirmed Problem Vitamin D deficiency (94199143) Vitamin D deficiency, unspecified (E55.9) Active confirmed Problem 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 Problem Hyperlipidemia (08987934) Hyperlipidemia, unspecified (E78.5) Active confirmed Problem Essential hypertension (11840530) Essential (primary) hypertension (I10) Active confirmed Problem Cerebral infarction (801997191) Cerebral infarction, unspecified (I63.9) Active confirmed Problem Autoimmune hepatitis (360826236) Autoimmune hepatitis (K75.4) Active confirmed Problem Chronic kidney disease stage 3 (disorder) (349966721) Chronic kidney disease, stage 3 (moderate) (N18.3) Active confirmed Problem Long-term current us e of anticoagulant (501307458) correction (current) use of anticoagulants (Z79.01) Active confirmed Problem Benign prostatic hypertrophy without outflow obstruction (602604166) Benign prostatic hyperplasia without lower urinary tract symptoms (N40.0) Active confirmed Problem Backache (806192317) Back pain, unspecified back location, unspecified back pain laterality, unspecified chronicity (M54.9) Active confirmed Problem Adult health examination (548248032) Adult general medical exam (Z00.00) Active confirmed Problem Hypothyroidism (29378195) Hypothyroidism, unspecified type (E03.9) Active confirmed Problem Annual health maintenance examination (90466775) Annual physical exam (Z00.00) Active confirmed Problem Vitamin D deficiency (89942039) Vitamin D deficiency (E55.9) Active confirmed Problem Use of anticoagulation (169166856) Chronic anticoagulation (Z79.01) Active confirmed Problem Obesity (325560970) Obesity (BMI 30-39.9) (E66.9) Active confirmed Problem Type II diabetes mellitus without complication (349248715) Type 2 diabetes mellitus without complication, unspecified whether intermediate insulin use (E11.9) Active confirmed Problem Chronic kidney disease stage 3B (disorder) (653464196) Chronic kidney disease, stage 3b (N18.32) Active confirmed Problem Obstructive sleep apnea (04304496) Obstructive sleep apnea (G47.33) Active confirmed Problem Screening for malignant neoplasm of prostate (244283071) Prostate cancer screening (Z12.5) Active confirmed Problem Vitamin B>12< deficiency anaemia (61853654) Anemia due to vitamin B12 deficiency, 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) Active confirmed Problem Body mass index 30.0 0 to 34.99 (226483234719931) BMI 34.0-34.9,adult (Z68.34) Active confirmed Problem Degeneration of lumbar intervertebral disc (68328439) Degenerative disc disease, lumbar (M51.36) Active confirmed Problem Benign prostatic hypertrophy without outflow obstruction (587689295) BPH loc w/o ur obs/LUTS (N40.0) Active confirmed Problem Elevated level of transaminase and lactic acid dehydrogenase (finding) (552352697) Transaminitis (R74.01) Active confirmed Problem Bilateral low ba ck pain, unspecified chronicity, unspecified whether sciatica present (M54.50) Active confirmed Problem Aortic valve disease (5826296) Aortic valve disease (I35.9) Active confirmed Problem History of heart valve repair with prosthesis (941708214421488) Aortic valve replaced (Z95.2) Active confirmed Problem Diabetes mellitus type 2 in nonobese (631112280) Diabetes mellitus type 2 in nonobese (E11.9) Active confirmed Problem Obstructive sleep apnea syndrome (52984048) ARGENIS on CPAP (G47.33) Active confirmed Vital Signs Heart Rate 105 /min 02/24/2025 Oximetry 99 % 02/24/2025 Blood pressure diastolic 68 mm Hg 02/24/2025 Height 66 in 02/24/2025 Blood pressure systolic 122 mm Hg 02/24/2025 Weight 204 lbs 02/24/2025 BMI 32.92 kg/m2 02/24/2025 Encounters Encounter Location Date Provider Diagnosis [facility] [address] [place] [phone] 04/06/2024 TALAL INFANTE Hyperlipidemia, unspecified E78.5 ; Cerebral infarction, unspecified I63.9 ; Benign prostatic hyperplasia without lower urinary tract symptoms N40.0 ; Bilateral low back pain, unspecified chronicity, unspecified whether sciatica present M54.50 and Essential (primary) hypertension I10 [facility] [address] [place] [address] 05/31/2024 CHRISTINA WALTERS Type 2 diabetes phuong [...] (BMI 30-39.9) E66.9 and BMI 34.0-34.9,adult Z68.34 [facility] [address] [place] [address] 08/17/2024 CHRISTINA SELENA Type 2 diabetes phuong itus [...] (BMI 30-39.9) E66.9 and BMI 34.0-34.9,adult Z68.34 [facility] [address] [place] [address] 11/18/2024 CHRISTINA SELENA Type 2 diabetes phuong itus [...] (BMI 30-39.9) E66.9 and BMI 34.0-34.9,adult Z68.34 [facility] [address] [place] [address] 02/24/2025 CHRISTINA WALTERS Type 2 diabetes phuong itus [...] 30-39.9) E66.9 ; Advance care planning Z71.89 ; BMI 34.0-34.9,adult Z68.34 and Encounter for blood pressure examination Z01.30 [facility] [address] [place] [address] 04/16/2024 CHRISTINA SELENA [facility] [address] [place] [address] 04/28/2024 TALAL INFANTE [facility] [address] [place] [address] 05/31/2024 CHRISTINA SELENA [facility] [address] [place] [address] 06/03/2024 CHRISTINA SELENA [facility] [address] [place] [address] 06/21/2024 TALAL INFANTE [facility] [address] [place] [address] 06/28/2024 CHRISTINA SELENA [facility] [address] [place] [address] 07/28/2024 CHRISTINA SELENA [facility] [address] [facility] [address] [place] [address] 07/29/2024 CHRISTINA SELENA [facility] [address] [place], [place] 08/12/2024 CHRISTINA SELENA [facility] [address] [place] [address] 08/16/2024 CHRISTINA SELENA [facility] [address] [place] [address] 08/16/2024 CHRISTINA SELENA [facility] [address] [place] [address] 08/23/2024 CHRISTINA SELENA [facility] [address] [place] [address] 08/24/2024 TALAL INFANTE [facility] [address] [place] [address] 08/27/2024 JUMANA INFANTE [facility] [address] [place] [address] 11/05/2024 CHRISTINA MICHAELA [facility] [address] [place] [address] 11/09/2024 JUMANA INFANTE [facility] [address] [place] [address] 12/06/2024 CHRISTINAJUAN DANIEL MICHAELA [facility] [address] [facility] [address] [place] [address] JUMANA INFANTE [facility] [address] [place] [address] 01/24/2025 CHRISTINA WALTERS [facility] [address] 02/22/2025 CHRISTINA WALTERS Adult general medica l exam Z00.00 ; Type 2 diabetes mellitus with unspecified complications E11.8 and Hyperlipidemia, unspecified E78.5 [facility] [address] [address] 03/18/2025 CHRISTINA WALTERS Assessments Encounter Date Diagnosis (ICD Code) Assessment Notes Treatment Notes Treatment Clinical Notes Section Notes 04/06/2024 Hyperlipidemia, unspecified (ICD-10 - E78.5) Patient [...] Dictation was accomplished with the use of [facility] voice recognition software, prone to medical misidentifications [...] Dictation was accomplished with the use of [employer] voice recognition software, prone to medical misidentifications [...] Dictation was accomplished with the use of [facility] voice recognition software, prone to medical misidentifications [...] Dictation was accomplished with the use of [employer] voice recognition software, prone to medical misidentifications [...] with < 0.2% episodes of apnea. Sees [facility] sleep medicine. Overnight Pulse oximeter ordered. # [...] Dictation was accomplished with the use of [employer] voice recognition software, prone to medical misidentifications [...] with < 0.2% episodes of apnea. Sees [facility] sleep medicine. Overnight Pulse oximeter ordered. # [...] Dictation was accomplished with the use of [employer] voice recognition software, prone to medical misidentifications and grammatical errors. This is unintentional and the practitioner does try to identify and correct these, but some could still be present. Please do not hesitate to contact practitioner for clarification. All questions answered to patients satisfaction. Patient verbalized understanding of diagnosis and treatments explained. To call sooner prior to next visit it any questions/concerns arise. 02/22/2025 Adult general medical exam (ICD-10 - Z00.00) 02/24/2025 Type 2 diabetes mellitus with diabetic chronic [...] log exercise and discussed fitness Apps like [employer] which can help keep log off calories [...] Dictation was accomplished with the use of [employer] voice recognition software, prone to medical misidentifications and grammatical errors. This is unintentional and the practitioner does try to identify and correct these, but some could still be present. Please do not hesitate to contact practitioner for clarification. All questions answered to patients satisfaction. Patient verbalized understanding of diagnosis and treatments explained. To call sooner prior to next visit it any questions/concerns arise. 02/24/2025 Medicare annual wellness visit, subsequent (ICD-10 - [...] 1.65. Followed by Dr. Guaman # Screenings: SCD Physical Men Patient seen and examined. Comprehensive [...] log exercise and discussed fitness Apps like [employer] which can help keep log off calories [...] Dictation was accomplished with the use of [employer] voice recognition software, prone to medical misidentifications and grammatical errors. This is unintentional and the practitioner does try to identify and correct these, but some could still be present. Please do not hesitate to contact practitioner for clarification. All questions answered to patients satisfaction. Patient verbalized understanding of diagnosis and treatments explained. To call sooner prior to next visit it any questions/concerns arise. 02/24/2025 Chronic anticoagulation (ICD-10 - Z79.01) # Bilateral [...] log exercise and discussed fitness Apps like [employer] which can help keep log off calories [...] Dictation was accomplished with the use of [employer] voice recognition software, prone to medical misidentifications [...] with < 0.2% episodes of apnea. Sees [facility] sleep medicine. Overnight Pulse oximeter ordered. # [...] Dictation was accomplished with the use of [employer] voice recognition software, prone to medical misidentifications and grammatical errors. This is unintentional and the practitioner does try to identify and correct these, but some could still be present. Please do not hesitate to contact practitioner for clarification. All questions answered to patients satisfaction. Patient verbalized understanding of diagnosis and treatments explained. To call sooner prior to next visit it any questions/concerns arise. 02/22/2025 Type 2 diabetes mellitus with unspecified complications (ICD-10 - E11.8) 08/17/2024 Bilateral low back pain, unspecified chronicity, [...] Dictation was accomplished with the use of [employer] voice recognition software, prone to medical misidentifications [...] Dictation was accomplished with the use of [employer] voice recognition software, prone to medical misidentifications [...] with Coumadin clinic for INR adjustment 04/06/2024 Bilateral low back pain, unspecified chronicity, [...] Dictation was accomplished with the use of [employer] voice recognition software, prone to medical misidentifications [...] Dictation was accomplished with the use of [employer] voice recognition software, prone to medical misidentifications and grammatical errors. This is unintentional and the practitioner does try to identify and correct these, but some could still be present. Please do not hesitate to contact practitioner for clarification. All questions answered to patients satisfaction. Patient verbalized understanding of diagnosis and treatments explained. To call sooner prior to next visit it any questions/concerns arise. 02/22/2025 Hyperlipidemia, unspecified (ICD-10 - E78.5) 11/18/2024 ARGENIS on CPAP (ICD-10 - G47.33) # Depression. Pt PHQ9 8. Discussed SSRI therapy, pt reluctant due to being on too many meds . # Bilateral low back pain: Chronic problem, but overall stable # ARGENIS on CPAP: Recently obtained new CPAP, esteban shows sleeping average 7.5 hours with < 0.2% episodes of apnea. Sees [facility] sleep medicine. Overnight Pulse oximeter ordered. # [...] Dictation was accomplished with the use of [employer] voice recognition software, prone to medical misidentifications and grammatical errors. This is unintentional and the practitioner does try to identify and correct these, but some could still be present. Please do not hesitate to contact practitioner for clarification. All questions answered to patients satisfaction. Patient verbalized understanding of diagnosis and treatments explained. To call sooner prior to next visit it any questions/concerns arise. 02/24/2025 Bilateral low back pain, unspecified chronicity, unspecified [...] log exercise and discussed fitness Apps like [employer] which can help keep log off calories [...] Dictation was accomplished with the use of [employer] voice recognition software, prone to medical misidentifications and grammatical errors. This is unintentional and the practitioner does try to identify and correct these, but some could still be present. Please do not hesitate to contact practitioner for clarification. All questions answered to patients satisfaction. Patient verbalized understanding of diagnosis and treatments explained. To call sooner prior to next visit it any questions/concerns arise. 02/24/2025 ARGENIS on CPAP (ICD-10 - G47.33) # [...] log exercise and discussed fitness Apps like [employer] which can help keep log off calories [...] Dictation was accomplished with the use of [employer] voice recognition software, prone to medical misidentifications [...] with < 0.2% episodes of apnea. Sees [facility] sleep medicine. Overnight Pulse oximeter ordered. # [...] Dictation was accomplished with the use of [employer] voice recognition software, prone to medical misidentifications [...] Dictation was accomplished with the use of [employer] voice recognition software, prone to medical misidentifications [...] Dictation was accomplished with the use of [employer] voice recognition software, prone to medical misidentifications [...] Dictation was accomplished with the use of [employer] voice recognition software, prone to medical misidentifications and grammatical errors. This is unintentional and the practitioner does try to identify and correct these, but some could still be present. Please do not hesitate to contact practitioner for clarification. All questions answered to patients satisfaction. Patient verbalized understanding of diagnosis and treatments explained. To call sooner prior to next visit it any questions/concerns arise. 02/24/2025 Degenerative disc disease, lumbar (ICD-10 - M51.36) [...] log exercise and discussed fitness Apps like [employer] which can help keep log off calories [...] appropriate. Case discussed with collaborating physician Doyle Infanet who reviewed the assessment and plan. Chart, medications, labs, vital signs reviewed. Dictation was accomplished with the use of [employer] voice recognition software, prone to medical misidentifications [...] with < 0.2% episodes of apnea. Sees [facility] sleep medicine. Overnight Pulse oximeter ordered. # [...] Dictation was accomplished with the use of [employer] voice recognition software, prone to medical misidentifications [...] with < 0.2% episodes of apnea. Sees [facility] sleep medicine. Overnight Pulse oximeter ordered. # [...] Dictation was accomplished with the use of [employer] voice recognition software, prone to medical misidentifications and grammatical errors. This is unintentional and the practitioner does try to identify and correct these, but some could still be present. Please do not hesitate to contact practitioner for clarification. All questions answered to patients satisfaction. Patient verbalized understanding of diagnosis and treatments explained. To call sooner prior to next visit it any questions/concerns arise. 02/24/2025 Hyperlipidemia, unspecified (ICD-10 - E78.5) # Bilateral [...] log exercise and discussed fitness Apps like [employer] which can help keep log off calories [...] Dictation was accomplished with the use of [employer] voice recognition software, prone to medical misidentifications [...] Dictation was accomplished with the use of [employer] voice recognition software, prone to medical misidentifications [...] Dictation was accomplished with the use of [employer] voice recognition software, prone to medical misidentifications [...] Dictation was accomplished with the use of [facility] voice recognition software, prone to medical misidentifications [...] with < 0.2% episodes of apnea. Sees [facility] sleep medicine. Overnight Pulse oximeter ordered. # [...] Dictation was accomplished with the use of [employer] voice recognition software, prone to medical misidentifications [...] Dictation was accomplished with the use of [employer] voice recognition software, prone to medical misidentifications and grammatical errors. This is unintentional and the practitioner does try to identify and correct these, but some could still be present. Please do not hesitate to contact practitioner for clarification. All questions answered to patients satisfaction. Patient verbalized understanding of diagnosis and treatments explained. To call sooner prior to next visit it any questions/concerns arise. 02/24/2025 Anemia due to vitamin B12 deficiency, unspecified [...] log exercise and discussed fitness Apps like [employer] which can help keep log off calories [...] Dictation was accomplished with the use of [employer] voice recognition software, prone to medical misidentifications [...] with < 0.2% episodes of apnea. Sees [facility] sleep medicine. Overnight Pulse oximeter ordered. # [...] Dictation was accomplished with the use of [employer] voice recognition software, prone to medical misidentifications and grammatical errors. This is unintentional and the practitioner does try to identify and correct these, but some could still be present. Please do not hesitate to contact practitioner for clarification. All questions answered to patients satisfaction. Patient verbalized understanding of diagnosis and treatments explained. To call sooner prior to next visit it any questions/concerns arise. 02/24/2025 Aortic valve replaced (ICD-10 - Z95.2) # [...] log exercise and discussed fitness Apps like [employer] which can help keep log off calories [...] Dictation was accomplished with the use of [employer] voice recognition software, prone to medical misidentifications [...] Dictation was accomplished with the use of [employer] voice recognition software, prone to medical misidentifications [...] with < 0.2% episodes of apnea. Sees [facility] sleep medicine. Overnight Pulse oximeter ordered. # [...] Dictation was accomplished with the use of [employer] voice recognition software, prone to medical misidentifications [...] Dictation was accomplished with the use of [employer] voice recognition software, prone to medical misidentifications [...] Dictation was accomplished with the use of [employer] voice recognition software, prone to medical misidentifications and grammatical errors. This is unintentional and the practitioner does try to identify and correct these, but some could still be present. Please do not hesitate to contact practitioner for clarification. All questions answered to patients satisfaction. Patient verbalized understanding of diagnosis and treatments explained. To call sooner prior to next visit it any questions/concerns arise. 02/24/2025 Encounter for screening for other disorder (ICD-10 [...] log exercise and discussed fitness Apps like [employer] which can help keep log off calories [...] Dictation was accomplished with the use of [employer] voice recognition software, prone to medical misidentifications [...] with < 0.2% episodes of apnea. Sees [facility] sleep medicine. Overnight Pulse oximeter ordered. # [...] Dictation was accomplished with the use of [employer] voice recognition software, prone to medical misidentifications and grammatical errors. This is unintentional and the practitioner does try to identify and correct these, but some could still be present. Please do not hesitate to contact practitioner for clarification. All questions answered to patients satisfaction. Patient verbalized understanding of diagnosis and treatments explained. To call sooner prior to next visit it any questions/concerns arise. 02/24/2025 Depression screen (ICD-10 - Z13.31) # Bilateral [...] log exercise and discussed fitness Apps like [employer] which can help keep log off calories [...] Dictation was accomplished with the use of [employer] voice recognition software, prone to medical misidentifications [...] Dictation was accomplished with the use of [facility] voice recognition software, prone to medical misidentifications [...] Dictation was accomplished with the use of [employer] voice recognition software, prone to medical misidentifications [...] III. Baseline creaitnine . Followed by Dr. Guaman Case discussed with collaborating physician Doyle Infante who reviewed the assessment and plan. Chart, medications, labs, vital signs reviewed. Dictation was accomplished with the use of [employer] voice recognition software, prone to medical misidentifications and grammatical errors. This is unintentional and the practitioner does try to identify and correct these, but some could still be present. Please do not hesitate to contact practitioner for clarification. All questions answered to patients satisfaction. Patient verbalized understanding of diagnosis and treatments explained. To call sooner prior to next visit it any questions/concerns arise. 02/24/2025 Obesity (BMI 30-39.9) (ICD-10 - E66.9) # [...] III. Baseline creaitnine . Followed by Dr. Guaman # Screenings: UTD [...] log exercise and discussed fitness Apps like [employer] which can help keep log off calories [...] Dictation was accomplished with the use of [employer] voice recognition software, prone to medical misidentifications and grammatical errors. This is unintentional and the practitioner does try to identify and correct these, but some could still be present. Please do not hesitate to contact practitioner for clarification. All questions answered to patients satisfaction. Patient verbalized understanding of diagnosis and treatments explained. To call sooner prior to next visit it any questions/concerns arise. 02/24/2025 Advance care planning (ICD-10 - Z71.89) # [...] log exercise and discussed fitness Apps like [employer] which can help keep log off calories [...] Dictation was accomplished with the use of [employer] voice recognition software, prone to medical misidentifications and grammatical errors. This is unintentional and the practitioner does try to identify and correct these, but some could still be present. Please do not hesitate to contact practitioner for clarification. All questions answered to patients satisfaction. Patient verbalized understanding of diagnosis and treatments explained. To call sooner prior to next visit it any questions/concerns arise. 02/24/2025 BMI 34.0-34.9,adult (ICD-10 - Z68.34) # Bilateral [...] log exercise and discussed fitness Apps like [employer] which can help keep log off calories [...] Dictation was accomplished with the use of [employer] voice recognition software, prone to medical misidentifications and grammatical errors. This is unintentional and the practitioner does try to identify and correct these, but some could still be present. Please do not hesitate to contact practitioner for clarification. All questions answered to patients satisfaction. Patient verbalized understanding of diagnosis and treatments explained. To call sooner prior to next visit it any questions/concerns arise. 02/24/2025 Encounter for blood pressure examination (ICD-10 - Z01.30) # Bilateral low back pain: Chronic problem, [...] log exercise and discussed fitness Apps like [employer] which can help keep log off calories [...] Dictation was accomplished with the use of [employer] voice recognition software, prone to medical misidentifications [...] BLOOD COUNT) 10/15/2021 CBC (COMPLETE BLOOD COUNT) 09/01/2018 CBC (COMPLETE BLOOD COUNT) 04/27/2019 CBC (COMPLETE BLOOD COUNT) 11/02/2019 CBC (COMPLETE BLOOD COUNT) 05/21/2021 CBC (COMPLETE BLOOD COUNT) 06/02/2020 COMPREHENSIVE METABOLIC PANEL 06/02/2020 COMPREHENSIVE METABOLIC PANEL 05/21/2021 COMPREHENSIVE METABOLIC PANEL 11/02/2019 COMPREHENSIVE METABOLIC PANEL 04/27/2019 COMPREHENSIVE METABOLIC PANEL 09/01/2018 COMPREHENSIVE METABOLIC PANEL 10/15/2021 HEMOGLOBIN A1C 10/15/2021 HEMOGLOBIN A1C 10/27/2017 HEMOGLOBIN A1C 11/26/2022 HEMOGLOBIN A1C 04/27/2019 HEMOGLOBIN A1C 11/02/2019 HEMOGLOBIN A1C 05/21/2021 HEMOGLOBIN A1C 06/02/2020 LIPID PANEL 06/02/2020 LIPID PANEL 05/21/2021 LIPID PANEL 11/02/2019 LIPID PANEL 09/01/2018 LIPID PANEL 04/27/2019 LIPID PANEL 10/15/2021 PSA, SCREEN 10/15/2021 TSH 10/15/2021 URINALYSIS, COMPLETE 04/27/2019 URINALYSIS, COMPLETE 09/01/2018 URINALYSIS, COMPLETE 11/02/2019 URINALYSIS, COMPLETE 06/02/2020 AST/SGOT 11/21/2021 US Extrem Non-Vascular RT 05/15/2023 PT/INR 04/27/2019 LIPID PANEL, STANDARD 11/14/2023 LIPID PANEL, STANDARD 04/06/2024 HEPATITIS PANEL, ACUTE W/REFLEX TO CONFI RMATION 11/21/2021 COMPREHENSIVE METABOLIC PANEL 04/06/2024 COMPREHENSIVE METABOLIC PANEL 02/19/2024 COMPREHENSIVE METABOLIC PANEL 11/14/2023 COMPREHENSIVE METABOLIC PANEL 02/22/2025 CBC (INCLUDES DIFF/PLT) 02/22/2025 CBC (INCLUDES DIFF/PLT) 11/14/2023 CBC (INCLUDES DIFF/PLT) [...] 12/04/2022 Next Appt Details Provider Name:CHRISTINA WALTERS, 06/30/2025 10:00:00 AM, [address], [place], [address], Insurance Providers Payer Name Payer Address Payer Phone Subscriber Number Group Number Insured Name Patient Relationship to Insured Coverage Start Date Coverage End Date Medicare Part B [id number] [address] [place] [address] [id number] IRVIN SUAZO Self - patient is the insured [employer] [address] [place] [address] [phone] [id number] IRVIN SUAZO Self - patient is the [...]
--- OUTSIDE RECORDS SUMMARY | 2025-03-29 12:16 | XMS_ITS | Clinical Summary ---
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[facility] V24, [facility]/H [facility] V28) 12/01/2023 Factor V Leiden ([facility] V24) 12/01/2023 ARGENIS (obstructive sleep apnea) 12/01/2023 Seizures ([facility] V24, [facility] V28) 12/01/2023 Allergic rhinitis 07/21/2019 Autoimmune hepatitis ([facility] V24, [facility] V28) 07/21/2019 Overview (12/01/2023): 2011 BPH (benign prostatic hyperplasia) 07/21/2019 CAD (coronary artery disease) 07/21/2019 Overview (12/01/2023): CABG Carotid artery stenosis 07/21/2019 Overview (12/01/2023): Bilateral Cataract 07/21/2019 Chronic venous insufficiency 07/21/2019 Hyperlipidemia 07/21/2019 Hypertension 07/21/2019 Interstitial lung disease ([facility] V24, [facility] V28) 07/21/2019 Nephrolithiasis 07/21/2019 Type 2 diabetes mellitus ([facility] V24, [facility] V 28) 07/21/2019 DM (diabetes mellitus), type 2 with peripheral vascular complications ([facility] V24, [facility] V28) 07/21/2019 DM (diabetes mellitus), type 2 with renal complications ([facility] V24, [facility] V28) 07/21/2019 Type 2 diabetes mellitus wit h cataract ([facility] V24, [facility] V28) 07/21/2019 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 Aneurysm of ascending aorta ([facility] V24) 2016 Iron deficiency anemia 12/12/2015 Immunizations Name Administration Dates Next Due H1N1 [...] Medical History Date Comments Factor V Leiden ([facility] V24) DX :Factor V Leiden (HCC) Seizures ([facility] V24, [facility] V28) DX:Seizures (HCC) DVT (deep venous thrombosis) ([facility] V24, [facility] V28) DX:DVT (deep venous thrombos is) (HCC) 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 V24, [facility]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 (HCC) Aortic valve replaced DX:Aortic valve replaced ARGENIS (obstructive sleep apnea) DX :ARGENIS (obstructive sleep apnea) BPH (benign prostatic hyperplasia) 07/21/2019 DX:BPH (benign prostatic hyperplasia) CKD (chronic kidney disease) stage 3, GFR 30-59 ml/min ([facility] V24, [facility] V28) DX:CKD (chronic kidney disea se) stage 3, GFR 30-59 ml/min ([facility]) Hyperlipidemia 07/21/2019 DX:Hyperlipidemi a Hypertension 07/21/2019 DX:Hypertension CAD (coronary artery disease) 07/21/2019 DX :CAD (coronary artery disease); COMMENT: CABG DM (diabetes mellitus), type 2 with renal complications ([facility] V24, [facility] V28) 07/21/2019 DX:DM (diabetes mellitus), t ype 2 with renal complications (HCC) Nephrolithiasis 07/21/2019 DX:Nephrolithias is Autoimmune hepatitis ([facility] C V24, [facility] V28) 07/21/2019 DX:Autoimmune hepatitis (HCC ) Interstitial lung disease ([facility]/HCC V24, [facility] V28) 07/21/2019 DX:Interstitial lung disease (HCC) Allergic rhinitis 07/21/2019 DX:Allergic rh initis Cataract 07/21/2019 DX:Cataract Type 2 diabetes mellitus wit h cataract ([facility] V24, [facility] V28) 07/21/2019 DX:Type 2 diabetes mellitus with cataract ([facility]) Chronic venous insufficiency 07/21/2019 DX: Chronic venous insufficiency DM (diabetes mellitus), type 2 with peripheral vascular complications ([facility] V24, [facility] V28) 07/21/2019 DX:DM (diabetes mellitus), type 2 with peripheral vascular complications ([facility]) Carotid artery stenosis 07/21/2019 DX:Carot id artery stenosis; COMMENT: Bilateral History of DVT (deep vein thrombosis) 08/21/2018 DX:History of DVT (deep vein thrombosis) 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:Post -thrombotic syndrome Aneurysm of ascending aorta ([facility] V24) 07/28/2017 DX:Aneurysm of ascending aor ta ([facility]) Family History Medical History Relation Name Comments [...] 10:00 AM EDT Office Visit Gastroenterology - [place] [address] [facility] [address] [facility] [address] [place] [id number] Henry Morris MD [address] [facility] [address] [place] [address] Health Maintenance Due Date Last Done Comments [...] 2025 08/10/2024, 07/24/2023, 06/10/2022, Additional history exists Influenza Vaccine (#1) 2025 , 06/27/2023, 07/04/2022, Additional history exists Diabetes: Annual Urine Albumin-Creatinine Ratio (uACR) 01/25/2026 01/25/2025, 01/25/2025 Diabetes: Annual GFR (Glomerular Filtration Rate) 02/23/2026 02/23/2025, 01/25/2025, 07/27/2024 Hypertension/CHF/CAD Annual BMP Blood Test 02/23/2026 02/23/2025, 01/25/2025, 07/27/2024 Pneumococcal Vaccine: 50+ Years Completed 02/17/2015, 07/06/2010, 09/22/2007 RSV Immunization Adult Patients Completed 09/08/2023 HIB Vaccines Aged Out No longer eligi [...] Diagnosis Comments CBC WITH AUTO DIFFERENTIAL Routine 02/23/2025 8:50 AM EDT Routine general medical examination at a health care facility Diabetic complication ([facility] V24, [facility] V28) Hyperlipemia COMPREHENSIVE METABOLIC PANEL Routine 02/23/2025 8:50 AM EDT Routine general medical examination at a health care facility Diabetic complication ([facility] V24, [facility] V28) Hyperlipemia CBC AND DIFFERENTIAL Routine 02/23/2025 8:50 AM EDT Routine general medical examination at a [facility] care facility Diabetic complication ([facility] V24, [facility] V28) Hyperlipemia URINALYSIS WITH REFLEX MICROSCOPIC Routine 01/25/2025 3:12 PM EDT Chronic kidney disease (CKD) stage G3b/A1, moderately decreased glomerular filtration rate (GFR) between 30-44 mL/min/1.73 square meter and albuminuria creatinine ratio les* ([facility] V24, [facility] V28) Renal osteodystrophy PROTEIN AND CREATININE WITH RATIO, URINE Routine 01/25/2025 3:12 PM EDT Chronic kidney disease (CKD) stage G3b/A1, moderately decreased glomerular filtration rate (GFR) between 30-44 mL/min/1.73 square meter and albuminuria creatinine ratio les* ([facility] V24, [facility] V28) Renal osteodystrophy MICROALBUMIN CREATININE URINE RATIO Routine 01/25/2025 3:12 PM EDT Chronic kidney disease (CKD) stage G3b/A1, moderately decreased glomerular filtration rate (GFR) between 30-44 mL/min/1.73 square meter and albuminuria creatinine ratio les* ([facility] V24, [facility] V28) Renal osteodystrophy URINALYSIS WITH REFLEX MICROSCOPIC [...] Months Results * (ABNORMAL) CBC auto differential (02/23/2025 8:50 AM EDT) WBC 6.8 4.8 - 10.8 [facility] LAB HEMETOLOGY METHOD 02/23/2025 10:17 AM [facility] RBC 4.70 4.50 - 5.50 M/mcL LAB HEMETOLOGY METHOD 02/23/2025 10:17 AM [facility] Hemoglobin 14.4 13.5 - 17.5 g/dL LAB HEMETOLOGY METHOD 02/23/2025 10:17 AM [facility] Hematocrit 46.2 42.0 - 54.0 % LAB HEMETOLOGY METHOD 02/23/2025 10:17 AM [facility] MCV 98.9(H) 79.0 - 98.0 FL LAB HEMETOLOGY METHOD 02/23/2025 10:17 AM [facility] MCH 30.8 27.0 - 32.0 pcg LAB HEMETOLOGY METHOD 02/23/2025 10:17 AM [facility] MCHC 31.2(L) 32.0 - 37.0 g/dL LAB HEMETOLOGY METHOD 02/23/2025 10:17 AM [facility] RDW 15.1(H) 11.0 - 15.0 % LAB HEMETOLOGY METHOD 02/23/2025 10:17 AM [facility] Platelets 173 130 - 400 K/mcL LAB HEMETOLOGY METHOD 02/23/2025 10:17 AM [facility] MPV 10.9 7.0 - 11.0 FL LAB HEMETOLOGY METHOD 02/23/2025 10:17 AM [facility] NRBC 0.0 <1.0 % LAB HEMETOLOGY METHOD 02/23/2025 10:17 AM [facility] NRBC Absolute 0.00 <0.10 K/mcL LAB HEMETOLOGY METHOD 02/23/2025 10:17 AM [facility] Neutrophils Relative 60.1 % LAB HEMETOLOGY METHOD 02/23/2025 10:17 AM [facility] Lymphocytes Relative 27.5 % LAB HEMETOLOGY METHOD 02/23/2025 10:17 AM [facility] Monocytes Relative 7.6 % LAB HEMETOLOGY METHOD 02/23/2025 10:17 AM [facility] Eosinophils Relative 3.8 % LAB HEMETOLOGY METHOD 02/23/2025 10:17 AM [facility] Basophils Relative 0.6 % LAB HEMETOLOGY METHOD 02/23/2025 10:17 AM [facility] Immature Granulocytes Relative 0.4 % LAB HEMETOLOGY METHOD 02/23/2025 10:17 AM [facility] Neutrophils Absolute 4.09 1.50 - 7.00 K/mcL LAB HEMETOLOGY METHOD 02/23/2025 10:17 AM [facility] Lymphocytes Absolute 1.87 1.00 - 5.00 K/mcL LAB HEMETOLOGY METHOD 02/23/2025 10:17 AM [facility] Monocytes Absolute 0.52 0.20 - 1.00 K/mcL LAB HEMETOLOGY METHOD 02/23/2025 10:17 AM [facility] Eosinophils Absolute 0.26 0.00 - 0.50 K/mcL LAB HEMETOLOGY METHOD 02/23/2025 10:17 AM [facility] Basophils Absolute 0.04 0.00 - 0.20 K/mcL LAB HEMETOLOGY METHOD 02/23/2025 10:17 AM [facility] Immature Granulocytes Absolute 0.03 0.00 - 0.03 K/mcL LAB HEMETOLOGY METHOD 02/23/2025 10:17 AM [facility] Blood Venous blood specimen / Unknown Venipuncture / Unknown 02/23/2025 8:50 AM EDT 02/23/2025 9:55 AM EDT us Stella MALDONADO LAB BLOOD ORDERABLES Final Resul t [facility] [address] [place] [address], [place] [phone] * (ABNORMAL) Comprehensive metabolic panel (02/23/2025 8:50 AM EDT) Sodium 141 133 - 145 mmol/L LAB CHEMISTRY METHOD 02/23/2025 10:54 AM [facility] Potassium 4.5 3.5 - 5.5 mmol/L LAB CHEMISTRY METHOD 02/23/2025 10:54 AM [facility] Chloride 108 96 - 110 mmol/L LAB CHEMISTRY METHOD 02/23/2025 10:54 AM [facility] CO2 29 21 - 32 mmol/L LAB CHEMISTRY METHOD 02/23/2025 10:54 AM [facility] Anion Gap 4 3 - 11 LAB CHEMISTRY METHOD 02/23/2025 10:54 AM [facility] Glucose 106(H) 70 - 100 mg/dL LAB CHEMISTRY METHOD 02/23/2025 10:54 AM [facility] BUN 32(H) 5 - 25 mg/dL LAB CHEMISTRY METHOD 02/23/2025 10:54 AM [facility] Creatinine 1.71(H) 0.70 - 1.30 mg/dL LAB CHEMISTRY METHOD 02/23/2025 10:54 AM [facility] eGFR 39(L) >=60 mL/min/1. 73m2 LAB CHEMISTRY METHOD 02/23/2025 10:54 AM [facility] Comment:Calculation based on the Chronic Kidney Disease Epidemiology Collaboration (CKD-EPI) equation refit without adjustment for race. BUN/Creatinine Ratio 18.7 LAB CHEMISTRY METHOD 02/23/2025 10:54 AM [facility] Calcium 9.7 8.5 - 10.5 mg/dL LAB CHEMISTRY METHOD 02/23/2025 10:[address] [facility] AST (SGOT) 30 10 - 42 unit/L LAB CHEMISTRY METHOD 02/23/2025 10:[address] [facility] ALT (SGPT) 20 10 - 60 unit/L LAB CHEMISTRY METHOD 02/23/2025 10:[address] [facility] Alkaline Phosphatase 69 42 - 121 unit/L LAB CHEMISTRY METHOD 02/23/2025 10:[address] [facility] Total Protein 7.3 6.0 - 8.0 g/dL LAB CHEMISTRY METHOD 02/23/2025 10:54 AM [facility] Albumin 3.4 3.2 - 5.0 g/dL LAB CHEMISTRY METHOD 02/23/2025 10:54 AM [facility] Total Bilirubin 0.8 0.0 - 1.4 mg/dL LAB CHEMISTRY METHOD 02/23/2025 10:54 AM [facility] Blood Venous blood specimen / Unknown Venipuncture / Unknown 02/23/2025 8:50 AM EDT 02/23/2025 10:54 AM EDT us Stella MALDONADO LAB BLOOD ORDERABLES Final Resul t [facility] [address] [place] [address], * (ABNORMAL) Urinalysis with reflex microscopic (01/25/2025 3:12 PM EDT) Specific [place] Urine 1.015 1.003 - 1.030 LAB URINALYSIS - AUTOMATED METHOD 01/25/2025 7:[address] [facility] pH, Urine 7.0 5.0 - 8.0 pH LAB URINALYSIS - AUTOMATED METHOD 01/25/2025 7:18 PM [facility] Leukocytes, Urine Moderate(A) Negative LAB URINALYSIS - AUTOMATED METHOD 01/25/2025 7:18 PM [facility] Nitrite, Urine Positive(A) Negative LAB URINALYSIS - AUTOMATED METHOD 01/25/2025 7:18 PM [facility] Protein, Urine 100(A) <=Trace mg/dL LAB URINALYSIS - AUTOMATED METHOD 01/25/2025 7:18 PM [facility] Glucose, Urine Negative Negative mg/dL LAB URINALYSIS - AUTOMATED METHOD 01/25/2025 7:18 PM [facility] Ketones, Urine Negative Negative mg/dL LAB URINALYSIS - AUTOMATED METHOD 01/25/2025 7:18 PM [facility] Urobilinogen , Urine 0.2 0.2 - 1.0 mg/dL LAB URINALYSIS - AUTOMATED METHOD 01/25/2025 7:18 PM [facility] Bilirubin, Urine Negative Negative LAB URINALYSIS - AUTOMATED METHOD 01/25/2025 7:18 PM [facility] Blood, Urine Small(A) Negative LAB URINALYSIS - AUTOMATED METHOD 01/25/2025 7:18 PM [facility] RBC, Urine 5.1(H) 0 - 4 /HPF LAB URINALYSIS - AUTOMATED METHOD 01/25/2025 7:18 PM [facility] WBC, Urine 138.2(H) 0 - 4 /HPF LAB URINALYSIS - AUTOMATED METHOD 01/25/2025 7:18 PM [facility] Squamous Epithelial, Urine 15 0 - 60 /LPF LAB URINALYSIS - AUTOMATED METHOD 01/25/2025 7:18 PM [facility] Crystals, Urine Heavy Amorphous Urate crystals. /LPF 01/25/2025 7:18 PM [facility] Bacteria, Urine Few(A) Negative /HPF LAB URINALYSIS - AUTOMATED METHOD 01/25/2025 7:[address] [facility] Hyaline Casts, Urine 0 0 - 3 /LPF LAB URINALYSIS - AUTOMATED METHOD 01/25/2025 7:[address] [facility] Urine Urine specimen obtained by clean catch procedure / Unknown Non-blood Collection / Unknown 01/25/2025 3:12 PM EDT 01/25/2025 4:12 PM EDT us Joaquin Guaman MD LAB URINE ORDERABLES Final Re sult Performing Organization Address City/[facility]/ZIP Co de Phone Number [facility] [address] [place] [address], [place] [phone] * (ABNORMAL) Protein and creatinine with ratio, urine (01/25/2025 3:12 PM EDT) Protein, Urine 144 mg/dL LAB CHEMISTRY METHOD 01/25/2025 7:[address] [facility] Prot/Creat, Ur 1.37(H) <=0.20 mg/mg creat LAB CHEMISTRY METHOD 01/25/2025 7:[address] [facility] Creatinine, Urine 105.0 mg/dL LAB CHEMISTRY METHOD 01/25/2025 7:[address] [facility] Urine Urine specimen obtained by clean catch procedure / Unknown Non-blood Collection / Unknown 01/25/2025 3:12 PM EDT 01/25/2025 4:11 PM EDT us Joaquin Guaman MD LAB URINE ORDERABLES Final Re sult Performing Organization Address [facility]/ZIP Co de Phone Number [facility] [address] [place] [address], [place] [phone] * (ABNORMAL) Microalbumin creatinine urine ratio (01/25/2025 3:12 PM EDT) [facility] Creatinine, Urine 105.0 mg/dL LAB CHEMISTRY METHOD 01/25/2025 8:[address] [facility] Microalb, Ur 868.0(H) 0.0 - 29.0 mg/L LAB CHEMISTRY METHOD 01/25/2025 8:[address] [facility] Microalb/Crea t Ratio 827(H) <30 mg/g creat LAB CHEMISTRY METHOD 01/25/2025 8:[address] [facility] Urine Urine specimen obtained by clean catch procedure / Unknown Non-blood Collection / Unknown 01/25/2025 3:12 PM EDT 01/25/2025 4:11 PM EDT Joaquin Guaman MD LAB URINE ORDERABLES Final Re sult Performing Organization Address City/[facility]/ZIP Co de Phone Number [facility] [address] [place] [address], [place] [phone] * Vitamin D 25 hydroxy (01/25/2025 3:07 PM EDT) [facility] Vit D, 25-Hydroxy 49.0 30.0 - 80.0 ng/mL LAB CHEMISTRY METHOD 01/25/2025 7:[address] [facility] Blood Venous blood specimen / Unknown Venipuncture / Unknown 01/25/2025 3:07 PM EDT 01/25/2025 4:08 PM EDT Joaquin Guaman MD LAB BLOOD ORDERABLES Final Re sult [facility] [address] [place] [address], * (ABNORMAL) Parathyroid hormone intact (01/25/2025 3:07 PM EDT) [facility] PTH 107.7(H) 18.5 - 88.0 pcg/mL LAB CHEMISTRY METHOD 01/25/2025 7:[address] [facility] Blood Venous blood specimen / Unknown Venipuncture / Unknown 01/25/2025 3:07 PM EDT 01/25/2025 4:08 PM EDT Joaquin Guaman MD LAB BLOOD ORDERABLES Final Re sult [facility] [address] [place] [address], [place] [phone] * Magnesium (01/25/2025 3:07 PM EDT) Pathologist [facility] Magnesium 2.2 1.9 - 2.6 mg/dL LAB CHEMISTRY METHOD 01/25/2025 5:[address] [facility] Blood Venous blood specimen / Unknown Venipuncture / Unknown 01/25/2025 3:07 PM EDT 01/25/2025 4:08 PM EDT us Joaquin Guaman MD LAB BLOOD ORDERABLES Final Re sult Performing Organization Address City/[facility]/ZIP Co de Phone Number [facility] [address] [place] [address], [place] [phone] * (ABNORMAL) Renal function panel (01/25/2025 3:07 PM EDT) Sodium 140 133 - 145 mmol/L LAB CHEMISTRY METHOD 01/25/2025 5:[address] [facility] Potassium 4.5 3.5 - 5.5 mmol/L LAB CHEMISTRY METHOD 01/25/2025 5:[address] [facility] Chloride 103 96 - 110 mmol/L LAB CHEMISTRY METHOD 01/25/2025 5:[address] [facility] CO2 29 21 - 32 mmol/L LAB CHEMISTRY METHOD 01/25/2025 5:[address] [facility] Anion Gap 8 3 - 11 LAB CHEMISTRY METHOD 01/25/2025 5:[address] [facility] Glucose 95 70 - 100 mg/dL LAB CHEMISTRY METHOD 01/25/2025 5:27 PM [facility] BUN 30(H) 5 - 25 mg/dL LAB CHEMISTRY METHOD 01/25/2025 5:27 PM [facility] Creatinine 1.95(H) 0.70 - 1.30 mg/dL LAB CHEMISTRY METHOD 01/25/2025 5:[address] [facility] eGFR 34(L) >=60 mL/min/1. 73m2 LAB CHEMISTRY METHOD 01/25/2025 5:27 PM [facility] Comment:Calculation based on the Chronic Kidney Disease Epidemiology Collaboration (CKD-EPI) equation refit without adjustment for race. BUN/Creatinine Ratio 15.4 LAB CHEMISTRY METHOD 01/25/2025 5:[address] [facility] Albumin 3.4 3.2 - 5.0 g/dL LAB CHEMISTRY METHOD 01/25/2025 5:27 PM [facility] Calcium 9.5 8.5 - 10.5 mg/dL LAB CHEMISTRY METHOD 01/25/2025 5:27 PM [facility] Phosphorus 3.0 2.5 - 4.5 mg/dL LAB CHEMISTRY METHOD 01/25/2025 5:27 PM [facility] Blood Venous blood specimen / Unknown Venipuncture / Unknown 01/25/2025 3:07 PM EDT 01/25/2025 4:08 PM EDT us Joaquin Guaman MD LAB BLOOD ORDERABLES Final Re sult [facility] [address] [place] [address], [place] [phone] from Last 3 Months Insurance MEDICARE [facility] Advance Directives Documents on File Type Date Recorded 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
--- OUTSIDE RECORDS SUMMARY | 2025-03-29 12:16 | XMS_ITS | Clinical Summary ---
Author Organization [facility] Address [address] [place] [phone] Phone Care Team Providers Care Paint Spray Inspector Name Role Phone Stella Lemus Primary Care Provider [phone] Allergies Active Allergy Reactions Criticality Noted Date [...] Office Visit [facility] [address] [facility] [address] [place] [address] Joaquin Guaman MD Stage 3b [...] Office Visit [facility] [address] [phone] [place] [facility] [address] [phone] Health Maintenance Due Date Last Done Comments Hepatitis B Vaccine (1 of 3 - Risk 3-dose series) 2003 Influenza Vaccine (#1) 2025 7, 07/23/2015, 07/13/2015, Additional history exists Pneumococcal Vaccine: [...] 3:12 PM EDT) Protein, Ur 144 mg/dL [facility] Urine Protein/Creati nine Ratio 1.37(H) <=0.20 mg/mg creat [facility] Creatinine, Urine 105.0 mg/dL [facility] Urine specimen (specimen) Urine specimen obtained by clean catch procedure / Unknown 01/25/2025 3:12 PM EDT 01/25/2025 4:11 PM EDT Joaquin Guaman MD LAB URINE ORDERABLES Final Re sult Performing Organization Address City/[facility]/ZIP Co de Phone Number NEMESIO [facility] [address] [place] [address] * (ABNORMAL) Urine Albumin / Creatinine Ratio (01/25/2025 3:12 PM EDT) Creatinine, Urine 105.0 mg/dL [facility] Microalbumin Urine Random 868.0(H) 0.0 - 29.0 mg/L [facility] Microalbumin/Cre atinine Ratio 827(H) <30 mg/g creat [facility] Urine specimen (specimen) Urine specimen obtained by clean catch procedure / Unknown 01/25/2025 3:12 PM EDT 01/25/2025 4:11 PM EDT Joaquin Guaman MD LAB URINE ORDERABLES Final Re sult [facility] [address] [place] [address] * (ABNORMAL) Urinalysis Reflex Microscopic (01/25/2025 3:12 PM EDT) Specific [place] 1.015 1.003 - 1.030 [facility] pH Urine 7.0 5.0 - 8.0 pH [facility] LEUKOCYTES, URINE Moderate(A) Negative [facility] Nitrite, Urine Positive(A) Negative [facility] Protein, Urine 100(A) <=Trace mg/dL [facility] Glucose Urine Negative Negative mg/dL [facility] Ketones, Urine Negative Negative mg/dL [facility] Urobilinogen Urine 0.2 0.2 - 1.0 mg/dL [facility] Bilirubin Urine Negative Negative [facility] Blood Urine Small(A) Negative [facility] RBC, Urine 5.1(H) 0 - 4 /HPF [facility] WBC, Urine 138.2(H) 0 - 4 /HPF [facility] Squamous Epithelial, Urine 15 0 - 60 /LPF [facility] Crystals, Urine Heavy Amorphous Urate crystals. /LPF [facility] Bacteria, Urine Few(A) Negative /HPF [facility] Hyaline Casts, UA 0 0 - 3 /LPF [facility] 01/25/2025 3:12 PM EDT 01/25/2025 4:12 PM EDT us Joaquin Guaman MD LAB URINE ORDERABLES Final Re sult Performing Organization Address [facility]/ZIP Co de Phone Number [facility] [address] [place] [address] * Vitamin D 25 Hydroxy (01/25/2025 3:07 PM EDT) Vitamin D, 25-OH, Total 49.0 30.0 - 80.0 ng/mL [facility] Blood specimen (specimen) Venous blood / Unknown 01/25/2025 3:07 PM EDT 01/25/2025 4:08 PM EDT Joaquin Guaman MD LAB BLOOD ORDERABLES Final Re sult Performing Organization Address City/[facility]/ZIP Co de Phone Number [facility] [address] [place] [phone] * (ABNORMAL) PTH, Intact (01/25/2025 3:07 PM EDT) PTH 107.7(H) 18.5 - 88.0 pcg/mL [facility] Blood specimen (specimen) Venous blood / Unknown 01/25/2025 3:07 PM EDT 01/25/2025 4:08 PM EDT Joaquin Guaman MD LAB BLOOD ORDERABLES Final Re sult Performing Organization Address [facility] Co de Phone Number [facility] [address] [place] [phone] * Magnesium (01/25/2025 3:07 PM EDT) Magnesium 2.2 1.9 - 2.6 mg/dL [facility] Blood specimen (specimen) Venous blood / Unknown 01/25/2025 3:07 PM EDT 01/25/2025 4:08 PM EDT Joaquin Guaman MD LAB BLOOD ORDERABLES Final Re sult Performing Organization Address City/[facility]/ZIP Co de Phone Number [facility] [address] [place] [address] * (ABNORMAL) Renal Function Panel (01/25/2025 3:07 PM EDT) Sodium 140 133 - 145 mmol/L [facility] Potassium 4.5 3.5 - 5.5 mmol/L [facility] Chloride 103 96 - 110 mmol/L [facility] Bicarbonate (CO2) 29 21 - 32 mmol/L [facility] Anion Gap 8 3 - 11 [facility] Glucose 95 70 - 100 mg/dL [facility] BUN 30(H) 5 - 25 mg/dL [facility] Creatinine Serum 1.95(H) 0.70 - 1.30 mg/dL [facility] eGFR 34(L) >=60 mL/min/1. 73m2 [facility] Comment:Calculation based on the Chronic Kidney Disease Epidemiology Collaboration (CKD-EPI) equation refit without adjustment for race. BUN/Creatinine Ratio 15.4 [facility] Albumin 3.4 3.2 - 5.0 g/dL [facility] Calcium 9.5 8.5 - 10.5 mg/dL [facility] Phosphorus 3.0 2.5 - 4.5 mg/dL [facility] Blood specimen (specimen) Venous blood / Unknown 01/25/2025 3:07 PM EDT 01/25/2025 4:08 PM EDT us Joaquin Guaman MD LAB BLOOD ORDERABLES Final Re sult NEMESIO [facility] [address] [place] [address] from Last 3 Months Insurance [facility] Medicare [facility] Medicare Care Teams Paint Spray Inspector Relationship Specialty Start Date End Date Stella Lemus [address] [facility] [place] [id number] PCP - General 08/05/23
--- OUTSIDE RECORDS SUMMARY | 2025-03-29 12:16 | XMS_ITS ---
Author Name [facility] Organization Unknown Encounters Encounter Type Encounter Reason Primary Diagnosis Location Date Ambulatory Pending sale to [facility] 07/20/2024 Care Team Organization Name Specialty Phone Email Start Date End Da te Pending sale to [facility] 2024
== END 2025-03-29 12:06 | disposition home or self-care (01) ==
LOC: HO.ACS 11:11
PROVIDERS: PCP Physician Assistant Medical; Visit Provider Internal Medicine Medical Oncology
DX: Z79.01 Long term (current) use of anticoagulants (principal)

== ENCOUNTER → 2025-03-29 11:11 | Outpatient (BNVA) | payer MEDICARE, SELFPAY | PROVIDERS: PCP Physician Assistant Medical; Visit Provider Internal Medicine Medical Oncology | DX: I26.99 Other pulmonary embolism without acute cor pulmonale (principal); Z79.01 Long term (current) use of anticoagulants; Z51.81 Encounter for therapeutic drug level monitoring | CPT/HCPCS: 85610; 99211 ==

== ENCOUNTER 2025-04-05 10:49 | Outpatient (AMB) | payer MEDICARE, SELFPAY ==
--- NOTE | 2025-04-05 10:58 | MHC.OFFVISCO ---
Intake Intake Visit Reasons: Anticoagulation Allergies lovenox Allergy (Severe, Uncoded 04/05/25 10:53) bleeding morphine Allergy (Severe, Uncoded 04/05/25 10:53) Rash kepra Adverse Reaction (Severe, Uncoded 04/05/25 10:53) Drowsy Medication List - Last Reconciled 04/05/25 by Soo Ho RN amoxicillin 2,000 mg PO ONCE PRN azathioprine 150 mg PO DAILY calcium carbonate-vitamin D3 600 mg-10 mcg (400 unit) caps PO DAILY cholecalciferol (vitamin D3) 25 mcg PO DAILY finasteride 5 mg PO DAILY gabapentin 600 mg PO BID metoprolol tartrate 12.5 mg PO BID multivitamin 1 tab PO DAILY nitrofurantoin monohyd/m-cryst 100 mg caps PO omega 5-dss-ndv-fish oil 1,000 (120-180) mg (Fish Oil) 1 cap PO BID simvastatin 40 mg PO BEDTIME tamsulosin 0.8 mg PO DAILY triamcinolone acetonide 0.1% 1 appl topical DAILY PRN warfarin 2.5 mg See Protocol PO DAILY Nursing Note INR: 2.9- in therapeutic range of 2.5-3.5 Medications and supplements reviewed- no changes No changes in health, diet, medications, or supplements, Denies any signs and symptoms of bleeding or bruising or clotting. Bleeding, bruising, clotting discussed Nutritional guidance given - balance reds and greens pt states not eating grapefruit or raisins Dose: 5mg x 5, 7.5mg x 2 F/U INR: pt req 2 weeks Patient verbalizes understanding of instructions given Anti-Coag Initial Assessment Social Hx Patient Tobacco Use Status: Never used Tobacco alcohol intake: current Alcohol intake frequency: holidays/special occasions only Cardiovascular Hx: HTN Lung Disease HX: DVT/PE and Other Endocrine Hx: Diabetes and Autoimmune disorders Blood Disorder Hx: Hyperlipidemia and Hepatitis Hx: Kidney Disease and Prostate Neurological Hx: Epilepsy/Seizures and Stroke/TIA Cancer HX: No Psych. Illness/Depression: No Coding Level of Care Code Est Patient Level 1 Diagnoses Current use of anticoagulant therapy Z79.01 Assessment & Plan Assessment & Plan (1) Current use of anticoagulant therapy: Code(s): Z79.01 - shelter (current) use of anticoagulants Category: Medical
[2025-04-05 10:59] LABS: Prothrombin Time Whole Bld POC 35.0 sec (11.1-13.5); ~PT, ~INR - Anti Coag Clinic 2.9 (0.9-1.1)
--- OUTSIDE RECORDS SUMMARY | 2025-04-05 12:10 | XMS_ITS | Clinical Summary ---
Author Organization [address] Address [address] [place] [address] Phone Care Team Providers Care Pressure Sealer And Tester Name Role Phone Espinoza Infante MD Primary Care Provider [phone] Allergies Active Allergy Reactions Criticality Noted Date [...] BY MOUTH TWICE DAILY 0 Active omega 9-xau-tph-fish oil (Fish OiL) 1,000 (120-180) mg capsule [...] kidney disease) stage 3, GFR 30-59 ml/min ([facility] V24, [facility] V28) 12/01/2023 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[facility] V24, [facility] [address]/H [facility] V28) 12/01/2023 Factor V Leiden ([facility] V24) 12/01/2023 ARGENIS (obstructive sleep apnea) 12/01/2023 Seizures ([facility] V24, [facility] [address]/[facility] V28) 12/01/2023 Allergic rhinitis 07/21/2019 Autoimmune hepatitis ([facility] V24, [facility] [address] [facility]/[facility] V28) 07/21/2019 Overview (12/01/2023): 2011 BPH (benign prostatic hyperplasia) 07/21/2019 CAD (coronary artery disease) 07/21/2019 Overview (12/01/2023): CABG Carotid artery stenosis 07/21/2019 Overview (12/01/2023): Bilateral Cataract 07/21/2019 Chronic venous insufficiency 07/21/2019 Hyperlipidemia 07/21/2019 Hypertension 07/21/2019 Interstitial lung disease ([facility] [address]/[facility] V24, [facility] [address] [facility]/[facility] V28) 07/21/2019 Nephrolithiasis 07/21/2019 Type 2 diabetes mellitus ([facility] [address]/[facility] V24, [facility] [address] [facility]/[facility] V 28) 07/21/2019 DM (diabetes mellitus), type 2 with peripheral vascular complications ([facility] [address]/[facility] V24, [facility] [address]/[facility] V28) 07/21/2019 DM (diabetes mellitus), type 2 with renal complications ([facility] [address]/[facility] V24, [facility] [address]/[facility] V28) 07/21/2019 Type 2 diabetes mellitus wit h cataract ([facility] V24, [facility] [address]/[facility] V28) 07/21/2019 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 Aneurysm of ascending aorta ([facility] V24) 2016 Iron deficiency anemia 12/12/2015 Immunizations [...] Medical History Date Comments Factor V Leiden ([facility] [address]/[facility] V24) DX :Factor V Leiden (HCC) Seizures ([facility] [address]/HCC V24, [facility] [address]/[facility] V28) DX:Seizures (HCC) DVT (deep venous thrombosis) ([facility] [address]/[facility] V24, [facility] [address] [facility]/[facility] V28) DX:DVT (deep venous thrombos is) (HCC) 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[facility] [address] [facility]/HCC V24, [facility] [address] [facility]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 (HCC) Aortic valve replaced DX:Aortic valve replaced ARGENIS (obstructive sleep apnea) DX :ARGENIS (obstructive sleep apnea) BPH (benign prostatic hyperplasia) 07/21/2019 DX:BPH (benign prostatic hyperplasia) CKD (chronic kidney disease) stage 3, GFR 30-59 ml/min ([facility] [address]/[facility] V24, [facility] [address] [facility]/[facility] V28) DX:CKD (chronic kidney disea se) stage 3, GFR 30-59 ml/min ([facility]) Hyperlipidemia 07/21/2019 DX:Hyperlipidemi a Hypertension 07/21/2019 DX:Hypertension CAD (coronary artery disease) 07/21/2019 DX :CAD (coronary artery disease); COMMENT: CABG DM (diabetes mellitus), type 2 with renal complications ([facility] [address] [facility] V24, [facility] [address]/[facility] V28) 07/21/2019 DX:DM (diabetes mellitus), t ype 2 with renal complications (HCC) Nephrolithiasis 07/21/2019 DX:Nephrolithias is Autoimmune hepatitis ([facility] [address]/HC C V24, [facility] [address] [facility]/[facility] V28) 07/21/2019 DX:Autoimmune hepatitis (HCC ) Interstitial lung disease ([facility] [place]/H[facility] V24, [facility] [address] [facility] V28) 07/21/2019 DX:Interstitial lung disease (HCC) Allergic rhinitis 07/21/2019 DX:Allergic rh initis Cataract 07/21/2019 DX:Cataract Type 2 diabetes mellitus wit h cataract ([facility] [address]/[facility] V24, [facility] V28) 07/21/2019 DX:Type 2 diabetes mellitus with cataract ([facility]) Chronic venous insufficiency 07/21/2019 DX: Chronic venous insufficiency DM (diabetes mellitus), type 2 with peripheral vascular complications ([facility] [address] [facility] V24, [facility] V28) 07/21/2019 DX:DM (diabetes mellitus), type 2 with peripheral vascular complications ([facility]) Carotid artery stenosis 07/21/2019 DX:Carot id artery stenosis; COMMENT: Bilateral History of DVT (deep vein thrombosis) 08/21/2018 DX:History of DVT (deep vein thrombosis) 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:Post -thrombotic syndrome Aneurysm of ascending aorta ([facility] V24) 07/28/2017 DX:Aneurysm of ascending aor ta ([facility]) Family History Medical History Relation Name Comments [...] 10:00 AM EDT Office Visit Gastroenterology - [place] [address] [facility] [place] [address] [facility] [address] [place] [id number] Henry Morris MD [address] [facility] [address] [place] [address] Health Maintenance Due Date Last Done Comments [...] at a health care facility Diabetic complication ([facility] [address]/[facility] V24, [facility] [address]/[facility] V28) Hyperlipemia COMPREHENSIVE METABOLIC PANEL Routine 02/23/2025 8:50 AM EDT Routine general medical examination at a health care facility Diabetic complication ([facility] [address] [facility] V24, [facility] [address]/[facility] V28) Hyperlipemia CBC AND DIFFERENTIAL Routine 02/23/2025 8:50 AM EDT Routine general medical examination at a [facility] care facility Diabetic complication ([facility] [address] [facility] V24, [facility] [address] [facility]/[facility] V28) Hyperlipemia URINALYSIS WITH REFLEX MICROSCOPIC Routine 01/25/2025 3:12 PM EDT Chronic kidney disease (CKD) stage G3b/A1, moderately decreased glomerular filtration rate (GFR) between 30-44 mL/min/1.73 square meter and albuminuria creatinine ratio les* ([facility] [address] [facility] V24, [facility] [address] [facility]/[facility] V28) Renal osteodystrophy PROTEIN AND CREATININE WITH RATIO, URINE Routine 01/25/2025 3:12 PM EDT Chronic kidney disease (CKD) stage G3b/A1, moderately decreased glomerular filtration rate (GFR) between 30-44 mL/min/1.73 square meter and albuminuria creatinine ratio les* ([facility] [address] [facility]/[facility] V24, [facility] V28) Renal osteodystrophy MICROALBUMIN CREATININE URINE RATIO Routine 01/25/2025 3:12 PM EDT Chronic kidney disease (CKD) stage G3b/A1, moderately decreased glomerular filtration rate (GFR) between 30-44 mL/min/1.73 square meter and albuminuria creatinine ratio les* ([facility] [address] V24, [facility] [address] [facility]/[facility] V28) Renal osteodystrophy URINALYSIS WITH REFLEX MICROSCOPIC [...] AM EDT) WBC 6.8 4.8 - 10.8 K/[facility] LAB HEMETOLOGY METHOD 02/23/2025 10:17 AM [facility] RBC 4.70 4.50 - 5.50 M/mcL LAB HEMETOLOGY METHOD 02/23/2025 10:17 AM [facility] Hemoglobin 14.4 13.5 - 17.5 g/dL LAB HEMETOLOGY METHOD 02/23/2025 10:17 AM [facility] Hematocrit 46.2 42.0 - 54.0 % LAB HEMETOLOGY METHOD 02/23/2025 10:17 AM [facility] MCV 98.9(H) 79.0 - 98.0 FL LAB HEMETOLOGY METHOD 02/23/2025 10:17 AM [facility] MCH 30.8 27.0 - 32.0 pcg LAB HEMETOLOGY METHOD 02/23/2025 10:17 AM [facility] MCHC 31.2(L) 32.0 - 37.0 g/dL LAB HEMETOLOGY METHOD 02/23/2025 10:17 AM [facility] RDW 15.1(H) 11.0 - 15.0 % LAB HEMETOLOGY METHOD 02/23/2025 10:17 AM [facility] Platelets 173 130 - 400 K/mcL LAB HEMETOLOGY METHOD 02/23/2025 10:17 AM [facility] MPV 10.9 7.0 - 11.0 FL LAB HEMETOLOGY METHOD 02/23/2025 10:17 AM [facility] NRBC 0.0 <1.0 % LAB HEMETOLOGY METHOD 02/23/2025 10:17 AM [facility] NRBC Absolute 0.00 <0.10 K/mcL LAB HEMETOLOGY METHOD 02/23/2025 10:17 AM [facility] Neutrophils Relative 60.1 % LAB HEMETOLOGY METHOD 02/23/2025 10:17 AM [facility] Lymphocytes Relative 27.5 % LAB HEMETOLOGY METHOD 02/23/2025 10:17 AM [facility] Monocytes Relative 7.6 % LAB HEMETOLOGY METHOD 02/23/2025 10:17 AM [facility] Eosinophils Relative 3.8 % LAB HEMETOLOGY METHOD 02/23/2025 10:17 AM [facility] Basophils Relative 0.6 % LAB HEMETOLOGY METHOD 02/23/2025 10:17 AM [facility] Immature Granulocytes Relative 0.4 % LAB HEMETOLOGY METHOD 02/23/2025 10:17 AM [facility] Neutrophils Absolute 4.09 1.50 - 7.00 K/mcL LAB HEMETOLOGY METHOD 02/23/2025 10:17 AM [facility] Lymphocytes Absolute 1.87 1.00 - 5.00 K/mcL LAB HEMETOLOGY METHOD 02/23/2025 10:17 AM [facility] Monocytes Absolute 0.52 0.20 - 1.00 K/mcL LAB HEMETOLOGY METHOD 02/23/2025 10:17 AM [facility] Eosinophils Absolute 0.26 0.00 - 0.50 K/mcL LAB HEMETOLOGY METHOD 02/23/2025 10:17 AM [facility] Basophils Absolute 0.04 0.00 - 0.20 K/mcL LAB HEMETOLOGY METHOD 02/23/2025 10:17 AM [facility] Immature Granulocytes Absolute 0.03 0.00 - 0.03 K/mcL LAB HEMETOLOGY METHOD 02/23/2025 10:17 AM [facility] Blood Venous blood specimen / Unknown Venipuncture / Unknown 02/23/2025 8:50 AM EDT 02/23/2025 9:55 AM EDT us Stella MLADONADO LAB BLOOD ORDERABLES Final Resul t [facility] [address] [place] [address], [place] [phone] * (ABNORMAL) Comprehensive metabolic panel (02/23/2025 8:50 AM EDT) Sodium 141 133 - 145 mmol/L LAB CHEMISTRY METHOD 02/23/2025 10:54 AM [facility] Potassium 4.5 3.5 - 5.5 mmol/L LAB CHEMISTRY METHOD 02/23/2025 10:54 AM [facility] Chloride 108 96 - 110 mmol/L LAB CHEMISTRY METHOD 02/23/2025 10:54 AM [facility] CO2 29 21 - 32 mmol/L LAB CHEMISTRY METHOD 02/23/2025 10:54 AM [facility] Anion Gap 4 3 - 11 LAB CHEMISTRY METHOD 02/23/2025 10:54 AM [facility] Glucose 106(H) 70 - 100 mg/dL LAB CHEMISTRY METHOD 02/23/2025 10:54 AM [facility] BUN 32(H) 5 - 25 mg/dL LAB CHEMISTRY METHOD 02/23/2025 10:54 AM [facility] Creatinine 1.71(H) 0.70 - 1.30 mg/dL LAB CHEMISTRY METHOD 02/23/2025 10:54 AM [facility] eGFR 39(L) >=60 mL/min/1. 73m2 LAB CHEMISTRY METHOD 02/23/2025 10:54 AM [facility] Comment:Calculation based on the Chronic Kidney Disease Epidemiology Collaboration (CKD-EPI) equation refit without adjustment for race. BUN/Creatinine Ratio 18.7 LAB CHEMISTRY METHOD 02/23/2025 10:54 AM [facility] Calcium 9.7 8.5 - 10.5 mg/dL LAB CHEMISTRY METHOD 02/23/2025 10:54 AM EDT [facility] AST (SGOT) 30 10 - 42 unit/L LAB CHEMISTRY METHOD 02/23/2025 10:54 AM T [facility] ALT (SGPT) 20 10 - 60 unit/L LAB CHEMISTRY METHOD 02/23/2025 10:54 AM EDT [facility] Alkaline Phosphatase 69 42 - 121 unit/L LAB CHEMISTRY METHOD 02/23/2025 10:54 AM T [facility] Total Protein 7.3 6.0 - 8.0 g/dL LAB CHEMISTRY METHOD 02/23/2025 10:54 AM [facility] Albumin 3.4 3.2 - 5.0 g/dL LAB CHEMISTRY METHOD 02/23/2025 10:54 AM [facility] Total Bilirubin 0.8 0.0 - 1.4 mg/dL LAB CHEMISTRY METHOD 02/23/2025 10:54 AM [facility] Blood Venous blood specimen / Unknown Venipuncture / Unknown 02/23/2025 8:50 AM EDT 02/23/2025 10:54 AM EDT us Stella MALDONADO LAB BLOOD ORDERABLES Final Resul t [facility] [address] [place] [address], * (ABNORMAL) Urinalysis with reflex microscopic (01/25/2025 3:12 PM EDT) Specific Stanton Urine 1.015 1.003 - 1.030 LAB URINALYSIS - AUTOMATED METHOD 01/25/2025 7:18 PM EDT [facility] pH, Urine 7.0 5.0 - 8.0 pH LAB URINALYSIS - AUTOMATED METHOD 01/25/2025 7:18 PM [facility] Leukocytes, Urine Moderate(A) Negative LAB URINALYSIS - AUTOMATED METHOD 01/25/2025 7:18 PM [facility] Nitrite, Urine Positive(A) Negative LAB URINALYSIS - AUTOMATED METHOD 01/25/2025 7:18 PM [facility] Protein, Urine 100(A) <=Trace mg/dL LAB URINALYSIS - AUTOMATED METHOD 01/25/2025 7:18 PM [facility] Glucose, Urine Negative Negative mg/dL LAB URINALYSIS - AUTOMATED METHOD 01/25/2025 7:18 PM [facility] Ketones, Urine Negative Negative mg/dL LAB URINALYSIS - AUTOMATED METHOD 01/25/2025 7:18 PM [facility] Urobilinogen , Urine 0.2 0.2 - 1.0 mg/dL LAB URINALYSIS - AUTOMATED METHOD 01/25/2025 7:18 PM [facility] Bilirubin, Urine Negative Negative LAB URINALYSIS - AUTOMATED METHOD 01/25/2025 7:18 PM [facility] Blood, Urine Small(A) Negative LAB URINALYSIS - AUTOMATED METHOD 01/25/2025 7:18 PM [facility] RBC, Urine 5.1(H) 0 - 4 /HPF LAB URINALYSIS - AUTOMATED METHOD 01/25/2025 7:18 PM [facility] WBC, Urine 138.2(H) 0 - 4 /HPF LAB URINALYSIS - AUTOMATED METHOD 01/25/2025 7:18 PM [facility] Squamous Epithelial, Urine 15 0 - 60 /LPF LAB URINALYSIS - AUTOMATED METHOD 01/25/2025 7:18 PM [facility] Crystals, Urine Heavy Amorphous Urate crystals. /LPF 01/25/2025 7:18 PM [facility] Bacteria, Urine Few(A) Negative /HPF LAB URINALYSIS - AUTOMATED METHOD 01/25/2025 7:18 PM EDT [facility] Hyaline Casts, Urine 0 0 - 3 /LPF LAB URINALYSIS - AUTOMATED METHOD 01/25/2025 7:18 PM EDT [facility] Urine Urine specimen obtained by clean catch procedure / Unknown Non-blood Collection / Unknown 01/25/2025 3:12 PM EDT 01/25/2025 4:12 PM EDT us Joaquin Guaman MD LAB URINE ORDERABLES Final Re sult Performing Organization Address City/[facility]/ZIP Co de Phone Number [facility] [address] [place] [address], [place] [phone] * (ABNORMAL) Protein and creatinine with ratio, urine (01/25/2025 3:12 PM EDT) Protein, Urine 144 mg/dL LAB CHEMISTRY METHOD 01/25/2025 7:53 PM EDT [facility] Prot/Creat, Ur 1.37(H) <=0.20 mg/mg creat LAB CHEMISTRY METHOD 01/25/2025 7:53 PM EDT [facility] Creatinine, Urine 105.0 mg/dL LAB CHEMISTRY METHOD 01/25/2025 7:53 PM EDT [facility] Urine Urine specimen obtained by clean catch procedure / Unknown Non-blood Collection / Unknown 01/25/2025 3:12 PM EDT 01/25/2025 4:11 PM EDT us Joaquin Guaman MD LAB URINE ORDERABLES Final Re sult Performing Organization Address [facility]/ZIP Co de Phone Number [facility] [address] [place] [address], [place] [phone] * (ABNORMAL) Microalbumin creatinine urine ratio (01/25/2025 3:12 PM EDT) [facility] Creatinine, Urine 105.0 mg/dL LAB CHEMISTRY METHOD 01/25/2025 8:46 PM EDT [facility] Microalb, Ur 868.0(H) 0.0 - 29.0 mg/L LAB CHEMISTRY METHOD 01/25/2025 8:46 PM EDT [facility] Microalb/Crea t Ratio 827(H) <30 mg/g creat LAB CHEMISTRY METHOD 01/25/2025 8:46 PM EDT [facility] Urine Urine specimen obtained by clean catch procedure / Unknown Non-blood Collection / Unknown 01/25/2025 3:12 PM EDT 01/25/2025 4:11 PM EDT Joaquin Guaman MD LAB URINE ORDERABLES Final Re sult Performing Organization Address City/[facility]/ZIP Co de Phone Number [facility] [address] [place] [address], [place] [phone] * Vitamin D 25 hydroxy (01/25/2025 3:07 PM EDT) [facility] Vit D, 25-Hydroxy 49.0 30.0 - 80.0 ng/mL LAB CHEMISTRY METHOD 01/25/2025 7:37 PM EDT [facility] Blood Venous blood specimen / Unknown Venipuncture / Unknown 01/25/2025 3:07 PM EDT 01/25/2025 4:08 PM EDT Joaquin Guaman MD LAB BLOOD ORDERABLES Final Re sult [facility] [address] [place] [address], * (ABNORMAL) Parathyroid hormone intact (01/25/2025 3:07 PM EDT) [facility] PTH 107.7(H) 18.5 - 88.0 pcg/mL LAB CHEMISTRY METHOD 01/25/2025 7:37 PM EDT [facility] Blood Venous blood specimen / Unknown Venipuncture / Unknown 01/25/2025 3:07 PM EDT 01/25/2025 4:08 PM EDT Joaquin Guaman MD LAB BLOOD ORDERABLES Final Re sult [facility] [address] [place] [address], [place] [phone] * Magnesium (01/25/2025 3:07 PM EDT) Pathologist [facility] Magnesium 2.2 1.9 - 2.6 mg/dL LAB CHEMISTRY METHOD 01/25/2025 5:27 PM EDT [facility] Blood Venous blood specimen / Unknown Venipuncture / Unknown 01/25/2025 3:07 PM EDT 01/25/2025 4:08 PM EDT us Joaquin Guaman MD LAB BLOOD ORDERABLES Final Re sult Performing Organization Address City/[facility]/ZIP Co de Phone Number [facility] [address] [place] [address], [place] [phone] * (ABNORMAL) Renal function panel (01/25/2025 3:07 PM EDT) Sodium 140 133 - 145 mmol/L LAB CHEMISTRY METHOD 01/25/2025 5:27 PM EDT [facility] Potassium 4.5 3.5 - 5.5 mmol/L LAB CHEMISTRY METHOD 01/25/2025 5:27 PM EDT [facility] Chloride 103 96 - 110 mmol/L LAB CHEMISTRY METHOD 01/25/2025 5:27 PM EDT [facility] CO2 29 21 - 32 mmol/L LAB CHEMISTRY METHOD 01/25/2025 5:27 PM EDT [facility] Anion Gap 8 3 - 11 LAB CHEMISTRY METHOD 01/25/2025 5:27 PM EDT [facility] Glucose 95 70 - 100 mg/dL LAB CHEMISTRY METHOD 01/25/2025 5:27 PM [facility] BUN 30(H) 5 - 25 mg/dL LAB CHEMISTRY METHOD 01/25/2025 5:27 PM [facility] Creatinine 1.95(H) 0.70 - 1.30 mg/dL LAB CHEMISTRY METHOD 01/25/2025 5:27 PM T [facility] eGFR 34(L) >=60 mL/min/1. 73m2 LAB CHEMISTRY METHOD 01/25/2025 5:27 PM [facility] Comment:Calculation based on the Chronic Kidney Disease Epidemiology Collaboration (CKD-EPI) equation refit without adjustment for race. BUN/Creatinine Ratio 15.4 LAB CHEMISTRY METHOD 01/25/2025 5:27 PM EDT [facility] Albumin 3.4 3.2 - 5.0 g/dL LAB CHEMISTRY METHOD 01/25/2025 5:27 PM [facility] Calcium 9.5 8.5 - 10.5 mg/dL LAB CHEMISTRY METHOD 01/25/2025 5:27 PM [facility] Phosphorus 3.0 2.5 - 4.5 mg/dL LAB CHEMISTRY METHOD 01/25/2025 5:27 PM [facility] Blood Venous blood specimen / Unknown Venipuncture / Unknown 01/25/2025 3:07 PM EDT 01/25/2025 4:08 PM EDT us Joaquin Guaman MD LAB BLOOD ORDERABLES Final Re sult [facility] [address] [place] [address], [place] [phone] from Last 3 Months Insurance MEDICARE [facility] [[email or web address]] Advance Directives Documents on File Type Date Recorded Patient Research Physician Expl anation Health Care Decision (hx) 01/06/2012 AD PEREZ DIRECTIVE Health Care Decision (hx) 01/06/2012 AD PEREZ DIRECTIVE Health Care Decision (hx) 01/06/2012 AD PEREZ DIRECTIVE Care Teams Pressure Sealer And Tester Relationship Specialty Start Date End Date Espinoza Infante MD [address] [place] [address] PCP - General Internal Medicine 10/18/24
--- OUTSIDE RECORDS SUMMARY | 2025-04-05 12:10 | XMS_ITS | Clinical Summary ---
Author Organization [facility] Address [address] [place] [id number] Phone Care Team Providers Care Poultry Farm Manager Name Role Phone Stella Lemus Primary Care Provider [phone] Allergies Active Allergy Reactions Criticality Noted Date [...] Office Visit [facility] [address] [place] [address] Joaquin Guaman MD Stage 3b [...] Office Visit [facility] [address] [phone] [place] JuliannHORTENCIA [address] [address] Health Maintenance Due Date Last [...] ORDERABLES Final Re sult Performing Organization Address City/[facility]/ZIP Co de Phone Number [facility] [address] [place] [address] * (ABNORMAL) Urine Albumin / Creatinine Ratio [...] MD LAB URINE ORDERABLES Final Re sult [facility] [address] [place] [address] * (ABNORMAL) Urinalysis Reflex Microscopic (01/25/2025 3:12 PM EDT) Specific [place] 1.015 1.003 - 1.030 [facility] pH Urine 7.0 5.0 - 8.0 pH [facility] LEUKOCYTES, URINE Moderate(A) Negative [facility] Nitrite, Urine Positive(A) Negative [facility] Protein, Urine 100(A) <=Trace mg/dL [facility] Glucose Urine Negative Negative mg/dL [facility] Ketones, Urine Negative Negative mg/dL [facility] Urobilinogen Urine 0.2 0.2 - 1.0 mg/dL [facility] Bilirubin Urine Negative Negative [facility] Blood Urine Small(A) Negative [facility] [...] ORDERABLES Final Re sult Performing Organization Address [facility]/ZIP Co de Phone Number [facility] [address] [place] [address] * Vitamin D 25 Hydroxy (01/25/2025 3:07 PM EDT) Vitamin D, 25-OH, Total 49.0 30.0 - 80.0 ng/mL [facility] Blood specimen (specimen) Venous blood / Unknown 01/25/2025 3:07 PM EDT 01/25/2025 4:08 PM EDT Joaquin Guaman MD LAB BLOOD ORDERABLES Final Re sult Performing Organization Address City/[facility]/ZIP Co de Phone Number [facility] [address] [place] [id number] * (ABNORMAL) PTH, Intact (01/25/2025 3:07 PM EDT) PTH 107.7(H) 18.5 - 88.0 pcg/mL [facility] Blood specimen (specimen) Venous blood / Unknown 01/25/2025 3:07 PM EDT 01/25/2025 4:08 PM EDT Joaquin Guaman MD LAB BLOOD ORDERABLES Final Re sult Performing Organization Address [facility] Co de Phone Number [facility] [address] [place] [id number] * Magnesium (01/25/2025 3:07 PM EDT) Magnesium 2.2 1.9 - 2.6 mg/dL [facility] Blood specimen (specimen) Venous blood / Unknown 01/25/2025 3:07 PM EDT 01/25/2025 4:08 PM EDT Joaquin Guaman MD LAB BLOOD ORDERABLES Final Re sult Performing Organization Address City/[facility]/ZIP Co de Phone Number [facility] [address] [place] [address] * (ABNORMAL) Renal Function Panel (01/25/2025 3:07 [...] sult [facility] [address] [place] [address] from Last 3 Months Insurance [facility] Medicare [facility] Medicare Care Teams Poultry Farm Manager Relationship Specialty Start Date End Date Stella Lemus [address] [facility] [place] [address] PCP - General 08/05/23
--- OUTSIDE RECORDS SUMMARY | 2025-04-05 12:11 | XMS_ITS | Patient Health Record ---
Author Organization [facility] [address] Address [address] [place] [address] Care Team Providers Care Robot Operator Name Role Phone CHRISTINA WALTERS Unavailable [phone] JUMANA INFANTE Unavailable [phone] Allergies Allergen (clinical drug ingredient) Drug/Non Drug Allergy documented on EMR Reaction Allergy Type Onset Date Status morphine morphine (uncoded) Unknown Allergy A ctive enoxaparin Lovenox BLEEDS Drug Allergy Active Results Component Value Reference Range Notes CBC WITH AUTO DIFF Reviewed date:05/25/2024 12:51:27 PM Interpretation: Performing Lab: Notes/Report: Set Up Technician - Dora Marin MD [address] [place] [id number] [employer], a member of [facility] Original Ordering Provider: CHRISTINA SANCHEZ) FABBY WBC 6.4 4.8-10.8 x10-3/uL RBC 4.8 4.5-5.5 [...] 0-0.03 x10-3/uL COMPREHENSIVE METABOLIC PANE L Reviewed date:02/24/2025 08:00:24 [...] 3.2-5.0 g/dL Total Bilirubin 0.8 0.0-1.4 mg/dL CBC WITH AUTO DIFFERENTIAL Reviewed date:02/24/2025 08:00:24 [...] K/mcL Immature Granulocytes Absolute 0.03 0.00-0.03 K/mcL PROTEIN AND CREATININE WITH RATIO, URINE Reviewed [...] Notes/Report: Vit D, 25-Hydroxy 57.0 30.0-80.0 ng/mL COMPREHENSIVE METABOLIC PANE L Reviewed date:05/25/2024 01:05:19 PM Interpretation: Performing Lab: Notes/Report: Note Original Ordering Provider: CHRISTINA WALTERS PA-C (EMERY) [employer], [place] [address] Set Up Technician - Dora Marin MD GLUCOSE 190 70-100 [...] Original Ordering Provider: CHRISTINA WALTERS PA-C (EMERY) [employer], a member of [address] [address] Set Up Technician - Dora Marin MD GLYCOHEMOGLOBIN PROFILE Reviewed date:05/25/2024 12:53:08 PM Interpretation: Performing Lab: Notes/Report: Original Ordering Provider: CHRISTINA WALTERS PA-C (EMERY) [employer], a member of [address] [address] Set Up Technician - Dora Marin MD GLYCATED HEMOGLOBIN A1C 6.4 <6.5 % ESTIMATED AVERAGE GLUCOSE 137 Reason For Referral No Information Medications Medication [...] DAILY; Duration: 0 Active OneTouch Delica Plus [id number] - USE DIRECTED TO TEST BLOOD GLUCOSE [...] Notes Problem Anemia in chronic kidney disease (829192858) 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) Active confirmed Problem Diabetic renal disease (851023426) Type 2 diabetes mellitus with diabetic chronic kidney disease (E11.22) Active confirmed Problem Hyperglycemia due to type 2 diabetes mellitus (225257254244358) Type 2 diabetes mellitus with hyperglycemia (E11.65) Active confirmed Problem Disorder due to type 2 diabetes mellitus (226027018) Type 2 diabetes mellitus with unspecified complications (E11.8) Active confirmed Problem Type II diabetes mellitus without complication (966631132) Type 2 diabetes mellitus without complications (E11.9) Active confirmed Problem Vitamin D deficiency (76342644) Vitamin D deficiency, unspecified (E55.9) Active confirmed Problem 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 Problem Hyperlipidemia (46010696) Hyperlipidemia, unspecified (E78.5) Active confirmed Problem Essential hypertension (77317557) Essential (primary) hypertension (I10) Active confirmed Problem Cerebral infarction (692591123) Cerebral infarction, unspecified (I63.9) Active confirmed Problem Autoimmune hepatitis (815919734) Autoimmune hepatitis (K75.4) Active confirmed Problem Chronic kidney disease stage 3 (disorder) (082768033) Chronic kidney disease, stage 3 (moderate) (N18.3) Active confirmed Problem Long-term current us e of anticoagulant (315235764) MCC (current) use of anticoagulants (Z79.01) Active confirmed Problem Benign prostatic hypertrophy without outflow obstruction (470026462) Benign prostatic hyperplasia without lower urinary tract symptoms (N40.0) Active confirmed Problem Backache (572813047) Back pain, unspecified back location, unspecified back pain laterality, unspecified chronicity (M54.9) Active confirmed Problem Adult health examination (895354504) Adult general medical exam (Z00.00) Active confirmed Problem Hypothyroidism (75893103) Hypothyroidism, unspecified type (E03.9) Active confirmed Problem Annual health maintenance examination (03644531) Annual physical exam (Z00.00) Active confirmed Problem Vitamin D deficiency (74180009) Vitamin D deficiency (E55.9) Active confirmed Problem Use of anticoagulation (927835287) Chronic anticoagulation (Z79.01) Active confirmed Problem Obesity (447492389) Obesity (BMI 30-39.9) (E66.9) Active confirmed Problem Type II diabetes mellitus without complication (193424428) Type 2 diabetes mellitus without complication, unspecified whether solutions manager insulin use (E11.9) Active confirmed Problem Chronic kidney disease stage 3B (disorder) (429545935) Chronic kidney disease, stage 3b (N18.32) Active confirmed Problem Obstructive sleep apnea (65068285) Obstructive sleep apnea (G47.33) Active confirmed Problem Screening for malignant neoplasm of prostate (039875827) Prostate cancer screening (Z12.5) Active confirmed Problem Vitamin B>12< deficiency anaemia (32212009) Anemia due to vitamin B12 deficiency, 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) Active confirmed Problem Body mass index 30.0 0 to 34.99 (359513494627678) BMI 34.0-34.9,adult (Z68.34) Active confirmed Problem Degeneration of lumbar intervertebral disc (92849216) Degenerative disc disease, lumbar (M51.36) Active confirmed Problem Benign prostatic hypertrophy without outflow obstruction (089681693) BPH loc w/o ur obs/LUTS (N40.0) Active confirmed Problem Elevated level of transaminase and lactic acid dehydrogenase (finding) (749996643) Transaminitis (R74.01) Active confirmed Problem Bilateral low ba ck pain, unspecified chronicity, unspecified whether sciatica present (M54.50) Active confirmed Problem Aortic valve disease (4321995) Aortic valve disease (I35.9) Active confirmed Problem History of heart valve repair with prosthesis (250633949834402) Aortic valve replaced (Z95.2) Active confirmed Problem Diabetes mellitus type 2 in nonobese (673433449) Diabetes mellitus type 2 in nonobese (E11.9) Active confirmed Problem Obstructive sleep apnea syndrome (00202274) ARGENIS on CPAP (G47.33) Active confirmed Vital Signs Heart Rate 105 /min 02/24/2025 Oximetry 99 % 02/24/2025 Blood pressure diastolic 68 mm Hg 02/24/2025 Height 66 in 02/24/2025 Blood pressure systolic 122 mm Hg 02/24/2025 Weight 204 lbs 02/24/2025 BMI 32.92 kg/m2 02/24/2025 Encounters Encounter Location Date Provider Diagnosis [facility] [address] [place] [address] 04/06/2024 TALAL INFANTE Hyperlipidemia, unspecified E78.5 ; Cerebral infarction, unspecified I63.9 ; Benign prostatic hyperplasia without lower urinary tract symptoms N40.0 ; Bilateral low back pain, unspecified chronicity, unspecified whether sciatica present M54.50 and Essential (primary) hypertension I10 [facility] [address] [place] [address] 05/31/2024 CHRISTINA WALTERS Type 2 diabetes phuong [...] (BMI 30-39.9) E66.9 and BMI 34.0-34.9,adult Z68.34 [facility] [address] [place] [address] 08/17/2024 CHRISTINA SELENA Type 2 diabetes phuong [...] (BMI 30-39.9) E66.9 and BMI 34.0-34.9,adult Z68.34 [facility] [address] [place] [address] 11/18/2024 CHRISTINA SELENA Type 2 diabetes phuong [...] (BMI 30-39.9) E66.9 and BMI 34.0-34.9,adult Z68.34 [facility] [address] [place] [address] 02/24/2025 CHRISTINA WALTERS Type 2 diabetes phuong [...] [address] [place] [address] 04/16/2024 CHRISTINA SELENA [facility] [address] [place] [address] 04/28/2024 TALAL INFANTE [facility] [address] [place] [address] 05/31/2024 CHRISTINA SELENA [facility] [address] [place] [address] 06/03/2024 CHRISTINA SELENA [facility] [address] [place] [address] 06/21/2024 TALAL INFANTE [facility] [address] [place] [address] 06/28/2024 CHRISTINA SELENA [facility] [address] [place] [address] 07/28/2024 CHRISTINA SELENA [facility] [address] [facility] [address] [place] [address] 07/29/2024 CHRISTINA SELENA [facility] [address] [place], [place] 08/12/2024 CHRISTINA SELENA [facility] [address] [place] [address] 08/16/2024 CHRISTINA SELENA [facility] [address] [place] [address] 08/16/2024 CHRISTINA SELENA [facility] [address] [place] [address] 08/23/2024 CHRISTINA SELENA [facility] [address] [place] [address] 08/24/2024 TALAL INFANTE [facility] [address] [place] [address] 08/27/2024 JUMANA INFANTE [facility] [address] [place] [address] 11/05/2024 CHRISTINA MICHAELA [facility] [address] [place] [address] 11/09/2024 JUMANA INFANTE [facility] [address] [place] [address] 12/06/2024 CHRISTINAJUAN DANIEL MICHAELA [facility] [address] [facility] [address] [place], [place] [address] JUMANA INFANTE [facility] [address] [place] [address] 01/24/2025 CHRISTINA WALTERS [facility] [address] 02/22/2025 CHRISTINA WALTERS Adult general medica l exam Z00.00 ; Type 2 diabetes mellitus with unspecified complications E11.8 and Hyperlipidemia, unspecified E78.5 [facility] [address] [address] 03/18/2025 CHRISTINA WALTERS Assessments Encounter Date Diagnosis [...] Dictation was accomplished with the use of [employer] voice recognition software, prone to medical misidentifications [...] Dictation was accomplished with the use of [employer] voice recognition software, prone to medical misidentifications [...] Dictation was accomplished with the use of [employer] voice recognition software, prone to medical misidentifications [...] Dictation was accomplished with the use of [employer] voice recognition software, prone to medical misidentifications [...] with < 0.2% episodes of apnea. Sees [facility] sleep medicine. Overnight Pulse oximeter ordered. # [...] Dictation was accomplished with the use of [employer] voice recognition software, prone to medical misidentifications [...] with < 0.2% episodes of apnea. Sees [facility] sleep medicine. Overnight Pulse oximeter ordered. # [...] Dictation was accomplished with the use of [employer] voice recognition software, prone to medical misidentifications [...] log exercise and discussed fitness Apps like Minglebox which can help keep log off calories [...] Dictation was accomplished with the use of [employer] voice recognition software, prone to medical misidentifications [...] 1.65. Followed by Dr. Guaman # Screenings: MOD Physical Men Patient seen and examined. Comprehensive [...] log exercise and discussed fitness Apps like [employer] which can help keep log off calories [...] Dictation was accomplished with the use of [employer] voice recognition software, prone to medical misidentifications [...] log exercise and discussed fitness Apps like [employer] which can help keep log off calories [...] Dictation was accomplished with the use of [employer] voice recognition software, prone to medical misidentifications [...] with < 0.2% episodes of apnea. Sees [facility] sleep medicine. Overnight Pulse oximeter ordered. # [...] Dictation was accomplished with the use of [employer] voice recognition software, prone to medical misidentifications [...] Dictation was accomplished with the use of [employer] voice recognition software, prone to medical misidentifications [...] Dictation was accomplished with the use of [employer] voice recognition software, prone to medical misidentifications [...] Dictation was accomplished with the use of [employer] voice recognition software, prone to medical misidentifications [...] Dictation was accomplished with the use of [employer] voice recognition software, prone to medical misidentifications [...] with < 0.2% episodes of apnea. Sees [facility] sleep medicine. Overnight Pulse oximeter ordered. # [...] Dictation was accomplished with the use of [employer] voice recognition software, prone to medical misidentifications [...] log exercise and discussed fitness Apps like [employer] which can help keep log off calories [...] Dictation was accomplished with the use of [employer] voice recognition software, prone to medical misidentifications [...] log exercise and discussed fitness Apps like [employer] which can help keep log off calories [...] Dictation was accomplished with the use of [employer] voice recognition software, prone to medical misidentifications [...] with < 0.2% episodes of apnea. Sees [facility] sleep medicine. Overnight Pulse oximeter ordered. # [...] Dictation was accomplished with the use of [employer] voice recognition software, prone to medical misidentifications [...] Dictation was accomplished with the use of [employer] voice recognition software, prone to medical misidentifications [...] Dictation was accomplished with the use of [employer] voice recognition software, prone to medical misidentifications [...] Dictation was accomplished with the use of [employer] voice recognition software, prone to medical misidentifications [...] log exercise and discussed fitness Apps like [employer]ingle[employer] which can help keep log off calories [...] Dictation was accomplished with the use of [employer] voice recognition software, prone to medical misidentifications [...] with < 0.2% episodes of apnea. Sees [facility] sleep medicine. Overnight Pulse oximeter ordered. # [...] Dictation was accomplished with the use of [employer] voice recognition software, prone to medical misidentifications [...] with < 0.2% episodes of apnea. Sees [facility] sleep medicine. Overnight Pulse oximeter ordered. # [...] Dictation was accomplished with the use of [employer] voice recognition software, prone to medical misidentifications [...] log exercise and discussed fitness Apps like [employer] which can help keep log off calories [...] Dictation was accomplished with the use of [employer] voice recognition software, prone to medical misidentifications [...] Dictation was accomplished with the use of [employer] voice recognition software, prone to medical misidentifications [...] ARGENIS on CPAP: Recently obtained new CPAP, estebna shows sleeping average 7.5 hours with < [...] Dictation was accomplished with the use of [employer] voice recognition software, prone to medical misidentifications [...] Dictation was accomplished with the use of [employer] voice recognition software, prone to medical misidentifications [...] with < 0.2% episodes of apnea. Sees [facility] sleep medicine. Overnight Pulse oximeter ordered. # [...] Dictation was accomplished with the use of [employer] voice recognition software, prone to medical misidentifications [...] Dictation was accomplished with the use of [employer] voice recognition software, prone to medical misidentifications [...] log exercise and discussed fitness Apps like Minglebox which can help keep log off calories [...] Dictation was accomplished with the use of [employer] voice recognition software, prone to medical misidentifications [...] with < 0.2% episodes of apnea. Sees [facility] sleep medicine. Overnight Pulse oximeter ordered. # [...] Dictation was accomplished with the use of [employer] voice recognition software, prone to medical misidentifications [...] log exercise and discussed fitness Apps like Minglebox which can help keep log off calories [...] Dictation was accomplished with the use of [employer] voice recognition software, prone to medical misidentifications [...] Dictation was accomplished with the use of [employer] voice recognition software, prone to medical misidentifications [...] with < 0.2% episodes of apnea. Sees [facility] sleep medicine. Overnight Pulse oximeter ordered. # [...] Dictation was accomplished with the use of [employer] voice recognition software, prone to medical misidentifications [...] Dictation was accomplished with the use of [employer] voice recognition software, prone to medical misidentifications [...] Dictation was accomplished with the use of [employer] voice recognition software, prone to medical misidentifications [...] log exercise and discussed fitness Apps like [employer]ingle[employer] which can help keep log off calories [...] Dictation was accomplished with the use of [employer] voice recognition software, prone to medical misidentifications [...] with < 0.2% episodes of apnea. Sees [facility] sleep medicine. Overnight Pulse oximeter ordered. # [...] Dictation was accomplished with the use of [employer] voice recognition software, prone to medical misidentifications [...] log exercise and discussed fitness Apps like [employer]inglebox which can help keep log off calories [...] Dictation was accomplished with the use of [employer] voice recognition software, prone to medical misidentifications [...] Baseline creaitnine 1.65. Followed by Dr. Deniz aKba discussed with collaborating physician Doyle Infante who reviewed the assessment and plan. Chart, medications, labs, vital signs reviewed. Dictation was accomplished with the use of [employer] voice recognition software, prone to medical misidentifications [...] Dictation was accomplished with the use of [employer] voice recognition software, prone to medical misidentifications [...] Dictation was accomplished with the use of [employer] voice recognition software, prone to medical misidentifications [...] log exercise and discussed fitness Apps like Minglebox which can help keep log off calories [...] Dictation was accomplished with the use of [employer] voice recognition software, prone to medical misidentifications [...] log exercise and discussed fitness Apps like [employer] which can help keep log off calories [...] Dictation was accomplished with the use of [employer] voice recognition software, prone to medical misidentifications [...] log exercise and discussed fitness Apps like [employer] which can help keep log off calories [...] Dictation was accomplished with the use of [employer] voice recognition software, prone to medical misidentifications [...] log exercise and discussed fitness Apps like [employer] which can help keep log off calories [...] Dictation was accomplished with the use of [employer] voice recognition software, prone to medical misidentifications [...] BLOOD COUNT) 06/02/2020 CBC (COMPLETE BLOOD COUNT) 10/15/2021 CBC (COMPLETE BLOOD COUNT) 05/21/2021 CBC (COMPLETE BLOOD COUNT) 11/02/2019 CBC (COMPLETE BLOOD COUNT) 04/27/2019 CBC (COMPLETE BLOOD COUNT) 09/01/2018 COMPREHENSIVE METABOLIC PANEL 04/27/2019 COMPREHENSIVE METABOLIC PANEL 09/01/2018 COMPREHENSIVE METABOLIC PANEL 11/02/2019 COMPREHENSIVE METABOLIC PANEL 05/21/2021 COMPREHENSIVE METABOLIC PANEL 10/15/2021 COMPREHENSIVE METABOLIC PANEL 06/02/2020 HEMOGLOBIN A1C 05/21/2021 HEMOGLOBIN A1C 11/26/2022 HEMOGLOBIN A1C 06/02/2020 HEMOGLOBIN A1C 10/15/2021 HEMOGLOBIN A1C 10/27/2017 HEMOGLOBIN A1C 11/02/2019 HEMOGLOBIN A1C 04/27/2019 LIPID PANEL 11/02/2019 LIPID PANEL 05/21/2021 LIPID PANEL 09/01/2018 LIPID PANEL 04/27/2019 LIPID PANEL 10/15/2021 LIPID PANEL 06/02/2020 PSA, SCREEN 10/15/2021 TSH 10/15/2021 URINALYSIS, COMPLETE 04/27/2019 URINALYSIS, COMPLETE 09/01/2018 URINALYSIS, COMPLETE 11/02/2019 URINALYSIS, COMPLETE 06/02/2020 AST/SGOT 11/21/2021 US Extrem Non-Vascular RT 05/15/2023 PT/INR 04/27/2019 LIPID PANEL, STANDARD 04/06/2024 LIPID PANEL, STANDARD 11/14/2023 HEPATITIS PANEL, ACUTE W/REFLEX TO CONFI RMATION 11/21/2021 COMPREHENSIVE METABOLIC PANEL 11/14/2023 COMPREHENSIVE METABOLIC PANEL 02/19/2024 COMPREHENSIVE METABOLIC PANEL 04/06/2024 COMPREHENSIVE METABOLIC PANEL 02/22/2025 CBC (INCLUDES DIFF/PLT) 02/22/2025 CBC (INCLUDES DIFF/PLT) 04/06/2024 CBC (INCLUDES DIFF/PLT) 02/19/2024 CBC (INCLUDES DIFF/PLT) 11/14/2023 URINALYSIS, COMPLETE 11/14/2023 HEMOGLOBIN A1c 02/19/2024 HEMOGLOBIN A1c 11/14/2023 VITAMIN B12 11/14/2023 PSA (FREE AND TOTAL) 11/14/2023 VITAMIN D,25-OH,TOTAL,IA 11/14/2023 COMPLETE URINALYSIS 05/21/2021 COMPLETE URINALYSIS 10/15/2021 Lumbar Spine 2 or 3 Views 03/02/2024 Future Test Test Name Order Date CBC (COMPLETE BLOOD COUNT) 05/05/2021 COMPREHENSIVE METABOLIC PANEL 05/05/2021 HEMOGLOBIN A1C 05/05/2021 COMPREHENSIVE METABOLIC PANEL 12/04/2022 HEMOGLOBIN A1C 12/04/2022 URINALYSIS W/REFLEX CULTURE 12/04/2022 Next Appt Details Provider Name:CHRISTINA WALTERS, 06/30/2025 10:00:00 AM, [address], [place], [address], Insurance Providers Payer Name Payer Address Payer Phone Subscriber Number Group Number Insured Name Patient Relationship to Insured Coverage Start Date Coverage End Date Medicare Part B J14 [address] [place] [address] [id number] IRVIN SUAZO Self - patient is the insured MEDEX [address] [place] [address] [id number] IRVIN SUAZO Self - patient is the [...]
== END 2025-04-05 11:13 | disposition home or self-care (01) ==
LOC: HO.ACS 10:49
PROVIDERS: PCP Physician Assistant Medical; Visit Provider Internal Medicine Medical Oncology
DX: Z79.01 Long term (current) use of anticoagulants (principal)

== ENCOUNTER → 2025-04-05 10:49 | Outpatient (BNVA) | payer MEDICARE, SELFPAY | PROVIDERS: PCP Physician Assistant Medical; Visit Provider Internal Medicine Medical Oncology | DX: I26.99 Other pulmonary embolism without acute cor pulmonale (principal); Z79.01 Long term (current) use of anticoagulants; Z51.81 Encounter for therapeutic drug level monitoring | CPT/HCPCS: 85610; 99211 ==

== ENCOUNTER 2025-04-18 11:05 | Outpatient (AMB) | payer MEDICARE, SELFPAY ==
[2025-04-18 11:19] LABS: Prothrombin Time Whole Bld POC 46.5 sec (11.1-13.5); ~PT, ~INR - Anti Coag Clinic 3.9 (0.9-1.1)
--- NOTE | 2025-04-18 11:24 | MHC.OFFVISCO ---
Intake Intake Visit Reasons: Anticoagulation Allergies lovenox Allergy (Severe, Uncoded 04/18/25 11:13) bleeding morphine Allergy (Severe, Uncoded 04/18/25 11:13) Rash kepra Adverse Reaction (Severe, Uncoded 04/18/25 11:13) Drowsy Medication List - Last Reconciled 04/18/25 by Deepika Payne RN amoxicillin 2,000 mg PO ONCE PRN azathioprine 150 mg PO DAILY calcium carbonate-vitamin D3 600 mg-10 mcg (400 unit) caps PO DAILY cholecalciferol (vitamin D3) 25 mcg PO DAILY finasteride 5 mg PO DAILY gabapentin 600 mg PO BID metoprolol tartrate 12.5 mg PO BID multivitamin 1 tab PO DAILY nitrofurantoin monohyd/m-cryst 100 mg caps PO omega 5-pna-wfn-fish oil 1,000 (120-180) mg (Fish Oil) 1 cap PO BID simvastatin 40 mg PO BEDTIME tamsulosin 0.8 mg PO DAILY triamcinolone acetonide 0.1% 1 appl topical DAILY PRN warfarin 2.5 mg See Protocol PO DAILY Nursing Note INR: 3.9 out of therapeutic range of 2.5-3.5 Medications and supplements reviewed Patient status: No changes Medications or supplements: no changes Diet: usual diet for pt Denies any signs and symptoms of bleeding or clotting or unusual bruising Bleeding, bruising, clotting discussed Nutritional guidance given: To have a serving of greens today Dose: decrease today's dose to 5mg (7.5mg) then 5mg X 5 days and 7.5mg X 2 days (Fri & ) F/U INR Date: 2 weeks?? Patient verbalizing understanding of instructions given. 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 Illness/Depression: No Coding Level of Care Code Est Patient Level 1 Diagnoses Current use of anticoagulant therapy Z79.01 Results AMB INR Fingerstick AMB INR Fingerstick 3.9 Last Edit by eDepika Payne RN on 04/18/25 11:19 interface delay Assessment & Plan Assessment & Plan (1) Current use of anticoagulant therapy: Code(s): Z79.01 - detention (current) use of anticoagulants Category: Medical
--- OUTSIDE RECORDS SUMMARY | 2025-04-18 12:23 | XMS_ITS | Clinical Summary ---
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 Active metoprolol succinate (TOPROL-XL) 25 MG 24 hr tablet Take 25 mg by mouth daily. 1/2 tab 12.mg Active simvastatin (ZOCOR) 40 MG tablet Take 40 mg by mouth nightly at bedtime. Active warfarin (COUMADIN) 2.5 MG tablet Take 2.5 mg by mouth daily. Active doxazosin (CARDURA) 4 MG tablet Take 4 mg by mouth nightly at bedtime. Active therapeutic multivitamin tablet Take 1 tablet by mouth daily. Active tamsulosin (FLOMAX) 0.4 mg Cap Take 0.4 mg by mouth daily. Active finasteride (PROSCAR) 5 mg tablet Take 5 mg by mouth daily. Active calcium carbonate-vitamin D3 1,250 mg (500 mg elemental)-400 units per tablet Take 1 tablet by mouth daily. Active gabapentin (NEURONTIN) 600 MG tablet Take 600 mg by mouth 2 (two) times a day. Active cholecalciferol (VITAMIN D3) 25 MCG (1,000 unit) tablet Take 1,000 Units by mouth daily. Active azaTHIOprine (AZASAN) 100 mg tablet Take 150 mg by mouth daily. Active Social History Tobacco Use Types Packs/Day Years Used Date Smoking Tobacco: Former Cigarettes Q uit: 1968 Smokeless Tobacco: Never Tobacco Cessation:Counseling Given: Not Answered Alcohol Use Standard Drinks/Week Comments Not Asked 0 (1 standard drink = 0.6 oz pur e alcohol) rare Education Answer Date Recorded Are you interested in more education? Not on blanca e 01/18/2023 Are you concerned about learning? Not on file 01/18/2023 No 01/18/2023 No 01/18/2023 Digital Access Answer Date Recorded No 02/15/2023 No 02/15/2023 No 02/15/2023 Reliable internet access at home? Not on file 02/15/2023 Device with a working camera? Not on file Intimate Partner Violence Answer Date R ecorded Are you denied basic needs s uch as food, clothing, or medical care? No 01/09/2023 In the past 12 months have y ou been in a relationship with a person who hurts, threatens, or tries to control you? No 01/09/2023 Are you denied basic needs s uch as food, clothing, or medical care? No 01/09/2023 In the past 12 months have y ou been in a relationship with a person who hurts, threatens, or tries to control you? No 01/09/2023 Sex and Gender Information Value Date Recorded Sex Assigned at Not on file Legal Sex Male 11:01 AM EST Gender Identity Not on file Sexual Orientation Not on file Last Filed Vital Signs Vital Sign Reading Time Taken Comments Blood Pressure 147/78 01/09/2023 9:00 AM EDT Pulse 62 01/09/2023 9:00 AM EDT Temperature 36.4 C (97.6 F) 01/09/2023 9:00 AM EDT Respiratory Rate - - Oxygen Saturation 96% 01/09/2023 9:00 AM EDT Inhaled Oxygen Concentration - - Weight 95.7 kg (211 lb) 01/08/2023 10:53 AM EDT Height 170.2 cm (5' 7 ) 01/08/2023 10:53 AM EDT Body Mass Index 33.05 01/08/2023 10:53 AM EDT Plan of Treatment Health Maintenance Due Date Last Done Comments ALKALINE PHOSPHATASE LEVEL 1943 Adult Td,Tdap Booster 1945 CREATININE LEVEL 1945 DEPRESSION SCREENING 1955 ZOSTER VACCINES (1 of 2) 1962 PNEUMOCOCCAL VACCINES (50+ years) (2 of 2 - PCV) 07/06/2011 07/06/2010 RSV VACCINE (1 - 1-dose 75+ series) 2018 COVID-19 VACCINE (6 - season) 2024 06/10/2022, 12/31/2021, 05/21/2021, Additional history exists HEPATITIS A VACCINES Aged Out No long er eligible based on patient's age to complete this topic HIB VACCINES Aged Out No longer eligi ble based on patient's age to complete this topic MENINGOCOCCAL VACCINES (ACWY) Aged Out No longer eligible based on patient's age to complete this topic MENINGOCOCCAL VACCINES (B) Aged Out N o longer eligible based on patient's age to complete this topic Medical Devices Implanted Type Area Mechanic Helper Device Identifier Shelf Expiration Date Model / Serial / Lot Filter Filter Leg Prosthetic Valve Prosthetic Valve Aorta Insurance [employer] MED[employer] SUPPLEMENT MEDICARE PART A & B [employer] MEDEX SUPPLEMENT MEDICARE PART A & B [employer] MED[employer] SUPPLEMENT MEDICARE PART A & B [employer] MEDEX SUPPLEMENT MEDICARE PART A & B [employer] MEDEX SUPPLEMENT MEDICARE PART A & B MEDEX SUPPLEMENT MEDICARE PART A & B 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 It is not the complete legal health record.[facility]
--- OUTSIDE RECORDS SUMMARY | 2025-04-18 12:23 | XMS_ITS | Clinical Summary ---
Author Organization [facility] Address [address] [place] [phone] Phone Care Team Providers Care Collar Trimmer Name Role Phone Stella Lemus Primary Care Provider [phone] Allergies Active Allergy Reactions Criticality Noted Date [...] Office Visit [facility] [address] [facility] [address] [place] [address] Joaquin Guaman MD Stage 3b [...] Office Visit [facility] [address] [phone] [place] [facility] [address] [address] Health Maintenance Due Date Last [...] 3:12 PM EDT) Protein, Ur 144 mg/dL [facility] Urine Protein/Creati nine Ratio 1.37(H) <=0.20 mg/mg creat [facility] Creatinine, Urine 105.0 mg/dL [facility] Urine specimen (specimen) Urine specimen obtained by clean catch procedure / Unknown 01/25/2025 3:12 PM EDT 01/25/2025 4:11 PM EDT Joaquin Guaman MD LAB URINE ORDERABLES Final Re sult Performing Organization Address City/[facility]/ZIP Co de Phone Number NEMESIO [facility] [address] [place] [address] * (ABNORMAL) Urine Albumin / Creatinine Ratio (01/25/2025 3:12 PM EDT) Creatinine, Urine 105.0 mg/dL [facility] Microalbumin Urine Random 868.0(H) 0.0 - 29.0 mg/L [facility] Microalbumin/Cre atinine Ratio 827(H) <30 mg/g creat [facility] Urine specimen (specimen) Urine specimen obtained by clean catch procedure / Unknown 01/25/2025 3:12 PM EDT 01/25/2025 4:11 PM EDT Joaquin Guaman MD LAB URINE ORDERABLES Final Re sult [facility] [address] [place] [address] * (ABNORMAL) Urinalysis Reflex Microscopic (01/25/2025 3:12 PM EDT) Specific [place] 1.015 1.003 - 1.030 [facility] pH Urine 7.0 5.0 - 8.0 pH [facility] LEUKOCYTES, URINE Moderate(A) Negative [facility] Nitrite, Urine Positive(A) Negative [facility] Protein, Urine 100(A) <=Trace mg/dL [facility] Glucose Urine Negative Negative mg/dL [facility] Ketones, Urine Negative Negative mg/dL [facility] Urobilinogen Urine 0.2 0.2 - 1.0 mg/dL [facility] Bilirubin Urine Negative Negative [facility] Blood Urine Small(A) Negative [facility] RBC, Urine 5.1(H) 0 - 4 /HPF [facility] WBC, Urine 138.2(H) 0 - 4 /HPF [facility] Squamous Epithelial, Urine 15 0 - 60 /LPF [facility] Crystals, Urine Heavy Amorphous Urate crystals. /LPF [facility] Bacteria, Urine Few(A) Negative /HPF [facility] Hyaline Casts, UA 0 0 - 3 /LPF [facility] 01/25/2025 3:12 PM EDT 01/25/2025 4:12 PM EDT us Joaquin Guaman MD LAB URINE ORDERABLES Final Re sult Performing Organization Address [facility]/ZIP Co de Phone Number [facility] [address] [place] [address] * Vitamin D 25 Hydroxy (01/25/2025 3:07 PM EDT) Vitamin D, 25-OH, Total 49.0 30.0 - 80.0 ng/mL [facility] Blood specimen (specimen) Venous blood / Unknown 01/25/2025 3:07 PM EDT 01/25/2025 4:08 PM EDT Joaquin Guaman MD LAB BLOOD ORDERABLES Final Re sult Performing Organization Address City/[facility]/ZIP Co de Phone Number [facility] [address] [place] [phone] * (ABNORMAL) PTH, Intact (01/25/2025 3:07 PM EDT) PTH 107.7(H) 18.5 - 88.0 pcg/mL [facility] Blood specimen (specimen) Venous blood / Unknown 01/25/2025 3:07 PM EDT 01/25/2025 4:08 PM EDT Joaquin Guaman MD LAB BLOOD ORDERABLES Final Re sult Performing Organization Address [facility] Co de Phone Number [facility] [address] [place] [phone] * Magnesium (01/25/2025 3:07 PM EDT) Magnesium 2.2 1.9 - 2.6 mg/dL [facility] Blood specimen (specimen) Venous blood / Unknown 01/25/2025 3:07 PM EDT 01/25/2025 4:08 PM EDT Joaquin Guaman MD LAB BLOOD ORDERABLES Final Re sult Performing Organization Address City/[facility]/ZIP Co de Phone Number [facility] [address] [place] [address] * (ABNORMAL) Renal Function Panel (01/25/2025 3:07 PM EDT) Sodium 140 133 - 145 mmol/L [facility] Potassium 4.5 3.5 - 5.5 mmol/L [facility] Chloride 103 96 - 110 mmol/L [facility] Bicarbonate (CO2) 29 21 - 32 mmol/L [facility] Anion Gap 8 3 - 11 [facility] Glucose 95 70 - 100 mg/dL [facility] BUN 30(H) 5 - 25 mg/dL [facility] Creatinine Serum 1.95(H) 0.70 - 1.30 mg/dL [facility] eGFR 34(L) >=60 mL/min/1. 73m2 [facility] Comment:Calculation based on the Chronic Kidney Disease Epidemiology Collaboration (CKD-EPI) equation refit without adjustment for race. BUN/Creatinine Ratio 15.4 [facility] Albumin 3.4 3.2 - 5.0 g/dL [facility] Calcium 9.5 8.5 - 10.5 mg/dL [facility] Phosphorus 3.0 2.5 - 4.5 mg/dL [facility] Blood specimen (specimen) Venous blood / Unknown 01/25/2025 3:07 PM EDT 01/25/2025 4:08 PM EDT us Joaquin Guaman MD LAB BLOOD ORDERABLES Final Re sult NEMESIO [facility] [address] [place] [address] from Last 3 Months Insurance [facility] Medicare [facility] Medicare Care Teams Collar Trimmer Relationship Specialty Start Date End Date Stella Lemus [address] [facility] [place] [address] PCP - General 08/05/23
--- OUTSIDE RECORDS SUMMARY | 2025-04-18 12:23 | XMS_ITS | Clinical Summary ---
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, [facility] V28) 12/01/2023 Factor V Leiden ([facility] V24) 12/01/2023 ARGENIS (obstructive sleep apnea) 12/01/2023 Seizures ([facility] V24, [facility] V28) 12/01/2023 Allergic rhinitis 07/21/2019 Autoimmune hepatitis ([facility] V24, [facility] V28) 07/21/2019 Overview (12/01/2023): 2011 BPH (benign prostatic hyperplasia) 07/21/2019 CAD (coronary artery disease) 07/21/2019 Overview (12/01/2023): CABG Carotid artery stenosis 07/21/2019 Overview (12/01/2023): Bilateral Cataract 07/21/2019 Chronic venous insufficiency 07/21/2019 Hyperlipidemia 07/21/2019 Hypertension 07/21/2019 Interstitial lung disease ([facility] V24, [facility] V28) 07/21/2019 Nephrolithiasis 07/21/2019 Type 2 diabetes mellitus ([facility] V24, [facility] V 28) 07/21/2019 DM (diabetes mellitus), type 2 with peripheral vascular complications ([facility] V24, [facility] V28) 07/21/2019 DM (diabetes mellitus), type 2 with renal complications ([facility] V24, [facility] V28) 07/21/2019 Type 2 diabetes mellitus wit h cataract ([facility] V24, [facility] V28) 07/21/2019 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 Aneurysm of ascending aorta ([facility] V24) 2016 Iron deficiency anemia 12/12/2015 Immunizations [...] Factor V Leiden ([facility] V24) DX :Factor V Leiden (HCC) Seizures ([facility] V24, [facility] V28) DX:Seizures (HCC) DVT (deep venous thrombosis) ([facility] V24, [facility] V28) DX:DVT (deep venous thrombos is) (HCC) 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, [facility]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 (HCC) Aortic valve replaced DX:Aortic valve replaced ARGENIS (obstructive sleep apnea) DX :ARGENIS (obstructive sleep apnea) BPH (benign prostatic hyperplasia) 07/21/2019 DX:BPH (benign prostatic hyperplasia) CKD (chronic kidney disease) stage 3, GFR 30-59 ml/min ([facility] V24, [facility] V28) DX:CKD (chronic kidney disea se) stage 3, GFR 30-59 ml/min ([facility]) Hyperlipidemia 07/21/2019 DX:Hyperlipidemi a Hypertension 07/21/2019 DX:Hypertension CAD (coronary artery disease) 07/21/2019 DX :CAD (coronary artery disease); COMMENT: CABG DM (diabetes mellitus), type 2 with renal complications ([facility] V24, [facility] V28) 07/21/2019 DX:DM (diabetes mellitus), t ype 2 with renal complications (HCC) Nephrolithiasis 07/21/2019 DX:Nephrolithias is Autoimmune hepatitis ([facility] C V24, [facility] V28) 07/21/2019 DX:Autoimmune hepatitis (HCC ) Interstitial lung disease ([facility]/HCC V24, [facility] V28) 07/21/2019 DX:Interstitial lung disease (HCC) Allergic rhinitis 07/21/2019 DX:Allergic rh initis Cataract 07/21/2019 DX:Cataract Type 2 diabetes mellitus wit h cataract ([facility] V24, [facility] V28) 07/21/2019 DX:Type 2 diabetes mellitus with cataract ([facility]) Chronic venous insufficiency 07/21/2019 DX: Chronic venous insufficiency DM (diabetes mellitus), type 2 with peripheral vascular complications ([facility] V24, [facility] V28) 07/21/2019 DX:DM (diabetes mellitus), type 2 with peripheral vascular complications ([facility]) Carotid artery stenosis 07/21/2019 DX:Carot id artery stenosis; COMMENT: Bilateral History of DVT (deep vein thrombosis) 08/21/2018 DX:History of DVT (deep vein thrombosis) 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:Post -thrombotic syndrome Aneurysm of ascending aorta ([facility] V24) 07/28/2017 DX:Aneurysm of ascending aor ta ([facility]) Family History Medical History Relation Name Comments [...] 10:00 AM EDT Office Visit Gastroenterology - [place] [address] [facility] [address] [facility] [address] [place] [id number] Henry Morris MD [address] [facility] [address] [place] [address] Health Maintenance Due Date Last Done Comments Diabetes: Annual Foot Exam 1955 Diabetes: Annual Retina Eye Exam 1955 DTaP,Tdap,and Td Vaccines (1 - Tdap) 1962 Hepatitis A Vaccines (1 of 2 - Risk 2-dose series) 1962 Zoster Vaccines (1 of 2) 1962 Hepatitis B Vaccines (1 of 3 - Risk 3-dose series) 2003 Cholesterol Screening (Lipid Panel) 08/24/2022 Falls Risk Assessment 08/24/2022 Social Influencers of Health Screening 08/24/2022 Diabetes: Blood Sugar Control Test (HGBA1C) 09/07/2022 Medicare Annual Wellness Visit 11/27/2023 11/26/2022 Depression Screening 09/22/2024 COVID-19 Vaccine (8 - Moderna risk season) [...] at a health care facility Diabetic complication ([facility] V24, [facility] V28) Hyperlipemia COMPREHENSIVE METABOLIC PANEL Routine 02/23/2025 8:50 AM EDT Routine general medical examination at a health care facility Diabetic complication ([facility] V24, [facility] V28) Hyperlipemia CBC AND DIFFERENTIAL Routine 02/23/2025 8:50 AM EDT Routine general medical examination at a [place] care facility Diabetic complication ([facility] V24, [facility] V28) Hyperlipemia URINALYSIS WITH REFLEX MICROSCOPIC Routine 01/25/2025 3:12 PM EDT Chronic kidney disease (CKD) stage G3b/A1, moderately decreased glomerular filtration rate (GFR) between 30-44 mL/min/1.73 square meter and albuminuria creatinine ratio les* ([facility] V24, [facility] V28) Renal osteodystrophy PROTEIN AND CREATININE WITH RATIO, URINE Routine 01/25/2025 3:12 PM EDT Chronic kidney disease (CKD) stage G3b/A1, moderately decreased glomerular filtration rate (GFR) between 30-44 mL/min/1.73 square meter and albuminuria creatinine ratio les* ([facility] V24, [facility] V28) Renal osteodystrophy MICROALBUMIN CREATININE URINE RATIO Routine 01/25/2025 3:12 PM EDT Chronic kidney disease (CKD) stage G3b/A1, moderately decreased glomerular filtration rate (GFR) between 30-44 mL/min/1.73 square meter and albuminuria creatinine ratio les* ([facility] V24, [facility] V28) Renal osteodystrophy URINALYSIS WITH REFLEX MICROSCOPIC [...] AM EDT) WBC 6.8 4.8 - 10.8 K/[facility] LAB HEMETOLOGY METHOD 02/23/2025 10:17 AM [facility] RBC 4.70 4.50 - 5.50 M/mcL LAB HEMETOLOGY METHOD 02/23/2025 10:17 AM [facility] Hemoglobin 14.4 13.5 - 17.5 g/dL LAB HEMETOLOGY METHOD 02/23/2025 10:17 AM [facility] Hematocrit 46.2 42.0 - 54.0 % LAB HEMETOLOGY METHOD 02/23/2025 10:17 AM [facility] MCV 98.9(H) 79.0 - 98.0 FL LAB HEMETOLOGY METHOD 02/23/2025 10:17 AM [facility] MCH 30.8 27.0 - 32.0 pcg LAB HEMETOLOGY METHOD 02/23/2025 10:17 AM [facility] MCHC 31.2(L) 32.0 - 37.0 g/dL LAB HEMETOLOGY METHOD 02/23/2025 10:17 AM [facility] RDW 15.1(H) 11.0 - 15.0 % LAB HEMETOLOGY METHOD 02/23/2025 10:17 AM [facility] Platelets 173 130 - 400 K/mcL LAB HEMETOLOGY METHOD 02/23/2025 10:17 AM [facility] MPV 10.9 7.0 - 11.0 FL LAB HEMETOLOGY METHOD 02/23/2025 10:17 AM [facility] NRBC 0.0 <1.0 % LAB HEMETOLOGY METHOD 02/23/2025 10:17 AM [facility] NRBC Absolute 0.00 <0.10 K/mcL LAB HEMETOLOGY METHOD 02/23/2025 10:17 AM [facility] Neutrophils Relative 60.1 % LAB HEMETOLOGY METHOD 02/23/2025 10:17 AM [facility] Lymphocytes Relative 27.5 % LAB HEMETOLOGY METHOD 02/23/2025 10:17 AM [facility] Monocytes Relative 7.6 % LAB HEMETOLOGY METHOD 02/23/2025 10:17 AM [facility] Eosinophils Relative 3.8 % LAB HEMETOLOGY METHOD 02/23/2025 10:17 AM [facility] Basophils Relative 0.6 % LAB HEMETOLOGY METHOD 02/23/2025 10:17 AM [facility] Immature Granulocytes Relative 0.4 % LAB HEMETOLOGY METHOD 02/23/2025 10:17 AM [facility] Neutrophils Absolute 4.09 1.50 - 7.00 K/mcL LAB HEMETOLOGY METHOD 02/23/2025 10:17 AM [facility] Lymphocytes Absolute 1.87 1.00 - 5.00 K/mcL LAB HEMETOLOGY METHOD 02/23/2025 10:17 AM [facility] Monocytes Absolute 0.52 0.20 - 1.00 K/mcL LAB HEMETOLOGY METHOD 02/23/2025 10:17 AM [facility] Eosinophils Absolute 0.26 0.00 - 0.50 K/mcL LAB HEMETOLOGY METHOD 02/23/2025 10:17 AM [facility] Basophils Absolute 0.04 0.00 - 0.20 K/mcL LAB HEMETOLOGY METHOD 02/23/2025 10:17 AM [facility] Immature Granulocytes Absolute 0.03 0.00 - 0.03 K/mcL LAB HEMETOLOGY METHOD 02/23/2025 10:17 AM [facility] Blood Venous blood specimen / Unknown Venipuncture / Unknown 02/23/2025 8:50 AM EDT 02/23/2025 9:55 AM EDT us Stella MALDONADO LAB BLOOD ORDERABLES Final Resul t [facility] [address] [place] [address], [place] [phone] * (ABNORMAL) Comprehensive metabolic panel (02/23/2025 8:50 AM EDT) Sodium 141 133 - 145 mmol/L LAB CHEMISTRY METHOD 02/23/2025 10:54 AM [facility] Potassium 4.5 3.5 - 5.5 mmol/L LAB CHEMISTRY METHOD 02/23/2025 10:54 AM [facility] Chloride 108 96 - 110 mmol/L LAB CHEMISTRY METHOD 02/23/2025 10:54 AM [facility] CO2 29 21 - 32 mmol/L LAB CHEMISTRY METHOD 02/23/2025 10:54 AM [facility] Anion Gap 4 3 - 11 LAB CHEMISTRY METHOD 02/23/2025 10:54 AM [facility] Glucose 106(H) 70 - 100 mg/dL LAB CHEMISTRY METHOD 02/23/2025 10:54 AM [facility] BUN 32(H) 5 - 25 mg/dL LAB CHEMISTRY METHOD 02/23/2025 10:54 AM [facility] Creatinine 1.71(H) 0.70 - 1.30 mg/dL LAB CHEMISTRY METHOD 02/23/2025 10:54 AM [facility] eGFR 39(L) >=60 mL/min/1. 73m2 LAB CHEMISTRY METHOD 02/23/2025 10:54 AM [facility] Comment:Calculation based on the Chronic Kidney Disease Epidemiology Collaboration (CKD-EPI) equation refit without adjustment for race. BUN/Creatinine Ratio 18.7 LAB CHEMISTRY METHOD 02/23/2025 10:54 AM [facility] Calcium 9.7 8.5 - 10.5 mg/dL LAB CHEMISTRY METHOD 02/23/2025 10:54 AM EDT [facility] AST (SGOT) 30 10 - 42 unit/L LAB CHEMISTRY METHOD 02/23/2025 10:54 AM T [facility] ALT (SGPT) 20 10 - 60 unit/L LAB CHEMISTRY METHOD 02/23/2025 10:54 AM EDT [facility] Alkaline Phosphatase 69 42 - 121 unit/L LAB CHEMISTRY METHOD 02/23/2025 10:54 AM T [facility] Total Protein 7.3 6.0 - 8.0 g/dL LAB CHEMISTRY METHOD 02/23/2025 10:54 AM [facility] Albumin 3.4 3.2 - 5.0 g/dL LAB CHEMISTRY METHOD 02/23/2025 10:54 AM [facility] Total Bilirubin 0.8 0.0 - 1.4 mg/dL LAB CHEMISTRY METHOD 02/23/2025 10:54 AM [facility] Blood Venous blood specimen / Unknown Venipuncture / Unknown 02/23/2025 8:50 AM EDT 02/23/2025 10:54 AM EDT us Stella MALDONADO LAB BLOOD ORDERABLES Final Resul t [facility] [address] [place] [address], * (ABNORMAL) Urinalysis with reflex microscopic (01/25/2025 3:12 PM EDT) Specific Dequincy Urine 1.015 1.003 - 1.030 LAB URINALYSIS - AUTOMATED METHOD 01/25/2025 7:18 PM EDT [facility] pH, Urine 7.0 5.0 - 8.0 pH LAB URINALYSIS - AUTOMATED METHOD 01/25/2025 7:18 PM [facility] Leukocytes, Urine Moderate(A) Negative LAB URINALYSIS - AUTOMATED METHOD 01/25/2025 7:18 PM [facility] Nitrite, Urine Positive(A) Negative LAB URINALYSIS - AUTOMATED METHOD 01/25/2025 7:18 PM [facility] Protein, Urine 100(A) <=Trace mg/dL LAB URINALYSIS - AUTOMATED METHOD 01/25/2025 7:18 PM [facility] Glucose, Urine Negative Negative mg/dL LAB URINALYSIS - AUTOMATED METHOD 01/25/2025 7:18 PM [facility] Ketones, Urine Negative Negative mg/dL LAB URINALYSIS - AUTOMATED METHOD 01/25/2025 7:18 PM [facility] Urobilinogen , Urine 0.2 0.2 - 1.0 mg/dL LAB URINALYSIS - AUTOMATED METHOD 01/25/2025 7:18 PM [facility] Bilirubin, Urine Negative Negative LAB URINALYSIS - AUTOMATED METHOD 01/25/2025 7:18 PM [facility] Blood, Urine Small(A) Negative LAB URINALYSIS - AUTOMATED METHOD 01/25/2025 7:18 PM [facility] RBC, Urine 5.1(H) 0 - 4 /HPF LAB URINALYSIS - AUTOMATED METHOD 01/25/2025 7:18 PM [facility] WBC, Urine 138.2(H) 0 - 4 /HPF LAB URINALYSIS - AUTOMATED METHOD 01/25/2025 7:18 PM [facility] Squamous Epithelial, Urine 15 0 - 60 /LPF LAB URINALYSIS - AUTOMATED METHOD 01/25/2025 7:18 PM [facility] Crystals, Urine Heavy Amorphous Urate crystals. /LPF 01/25/2025 7:18 PM [facility] Bacteria, Urine Few(A) Negative [...] ORDERABLES Final Re sult Performing Organization Address City/[facility]/ZIP Co de Phone Number [facility] [address] [place] [address], [place] [phone] * (ABNORMAL) Protein and creatinine with ratio, [...] ORDERABLES Final Re sult Performing Organization Address [facility]/ZIP Co de Phone Number [facility] [address] [place] [address], [place] [phone] * (ABNORMAL) Microalbumin creatinine urine ratio (01/25/2025 3:12 PM EDT) [facility] Creatinine, Urine 105.0 mg/dL LAB CHEMISTRY METHOD [...] ORDERABLES Final Re sult Performing Organization Address City/[facility]/ZIP Co de Phone Number [facility] [address] [place] [address], [place] [phone] * Vitamin D 25 hydroxy (01/25/2025 3:07 PM EDT) [facility] Vit D, 25-Hydroxy 49.0 30.0 - 80.0 ng/mL LAB CHEMISTRY METHOD 01/25/2025 7:37 PM EDT [facility] Blood Venous blood specimen / Unknown Venipuncture / Unknown 01/25/2025 3:07 PM EDT 01/25/2025 4:08 PM EDT Joaquin Guaman MD LAB BLOOD ORDERABLES Final Re sult [facility] [address] [place] [address], * (ABNORMAL) Parathyroid hormone intact (01/25/2025 3:07 PM EDT) [facility] PTH 107.7(H) 18.5 - 88.0 pcg/mL LAB CHEMISTRY METHOD 01/25/2025 7:37 PM EDT [facility] Blood Venous blood specimen / Unknown Venipuncture / Unknown 01/25/2025 3:07 PM EDT 01/25/2025 4:08 PM EDT Joaquin Guaman MD LAB BLOOD ORDERABLES Final Re sult [facility] [address] [place] [address], [place] [phone] * Magnesium (01/25/2025 3:07 PM EDT) Pathologist [facility] Magnesium 2.2 1.9 - 2.6 mg/dL LAB CHEMISTRY METHOD 01/25/2025 5:27 PM EDT [facility] Blood Venous blood specimen / Unknown Venipuncture / Unknown 01/25/2025 3:07 PM EDT 01/25/2025 4:08 PM EDT us Joaquin Guaman MD LAB BLOOD ORDERABLES Final Re sult Performing Organization Address City/[facility]/ZIP Co de Phone Number [facility] [address] [place] [address], [place] [phone] * (ABNORMAL) Renal function panel (01/25/2025 3:07 PM EDT) Sodium 140 133 - 145 mmol/L LAB CHEMISTRY METHOD 01/25/2025 5:27 PM EDT [facility] Potassium 4.5 3.5 - 5.5 mmol/L LAB CHEMISTRY METHOD 01/25/2025 5:27 PM EDT [facility] Chloride 103 96 - 110 mmol/L LAB CHEMISTRY METHOD 01/25/2025 5:27 PM EDT [facility] CO2 29 21 - 32 mmol/L LAB CHEMISTRY METHOD 01/25/2025 5:27 PM EDT [facility] Anion Gap 8 3 - 11 LAB CHEMISTRY METHOD 01/25/2025 5:27 PM EDT [facility] Glucose 95 70 - 100 mg/dL LAB CHEMISTRY METHOD 01/25/2025 5:27 PM [facility] BUN 30(H) 5 - 25 mg/dL LAB CHEMISTRY METHOD 01/25/2025 5:27 PM [facility] Creatinine 1.95(H) 0.70 - 1.30 mg/dL LAB CHEMISTRY METHOD 01/25/2025 5:27 PM T [facility] eGFR 34(L) >=60 mL/min/1. 73m2 LAB CHEMISTRY METHOD 01/25/2025 5:27 PM [facility] Comment:Calculation based on the Chronic Kidney Disease Epidemiology Collaboration (CKD-EPI) equation refit without adjustment for race. BUN/Creatinine Ratio 15.4 LAB CHEMISTRY METHOD 01/25/2025 5:27 PM EDT [facility] Albumin 3.4 3.2 - 5.0 g/dL LAB CHEMISTRY METHOD 01/25/2025 5:27 PM [facility] Calcium 9.5 8.5 - 10.5 mg/dL LAB CHEMISTRY METHOD 01/25/2025 5:27 PM [facility] Phosphorus 3.0 2.5 - 4.5 mg/dL LAB CHEMISTRY METHOD 01/25/2025 5:27 PM [facility] Blood Venous blood specimen / Unknown Venipuncture / Unknown 01/25/2025 3:07 PM EDT 01/25/2025 4:08 PM EDT us Joaquin Guaman MD LAB BLOOD ORDERABLES Final Re sult [facility] [address] [place] [address], [place] [phone] from Last 3 Months Insurance MEDICARE [facility] Advance Directives Documents on File Type Date Recorded 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
--- OUTSIDE RECORDS SUMMARY | 2025-04-18 12:24 | XMS_ITS | Patient Health Record ---
Author Organization [facility] [address] Address [address] [place] [address] Care Team Providers Care Oyster Unloader Name Role Phone CHRISTINA WALTERS Unavailable [phone] JUMANA INFANTE Unavailable [phone] Allergies Allergen (clinical drug ingredient) Drug/Non Drug Allergy documented on EMR Reaction Allergy Type Onset Date Status morphine morphine (uncoded) Unknown Allergy A ctive enoxaparin Lovenox BLEEDS Drug Allergy Active Results Component Value Reference Range Notes CBC WITH AUTO DIFF Reviewed date:05/25/2024 12:51:27 PM Interpretation: Performing Lab: Notes/Report: Sash Assembler - Dora Marin MD [address] [place] [id number] [employer], a member of [facility] Original Ordering Provider: CHRISTINA SANCHEZ) FABBY [...] Notes/Report: Note Original Ordering Provider: CHRISTINA MALDONADO (EMERY)[employer] [address] Sash Assembler - Dora Marin MD GLUCOSE [phone] [...] Original Ordering Provider: CHRISTINA WALTERS PA-C (EMERY) [employer], a member of [address] [address] Sash Assembler - Dora Marin MD GLYCOHEMOGLOBIN PROFILE Reviewed date:05/25/2024 12:53:08 PM Interpretation: Performing Lab: Notes/Report: Original Ordering Provider: CHRISTINA MALDONADO (EMERY)[employer], a member of [address] [address] Sash Assembler - Dora Marin MD GLYCATED HEMOGLOBIN A1C 6.4 <6.5 % ESTIMATED AVERAGE GLUCOSE 137 CBC WITH AUTO DIFFERENTIAL Reviewed date:02/24/2025 08:00:24 [...] K/mcL Immature Granulocytes Absolute 0.03 0.00-0.03 K/mcL VITAMIN D 25 HYDROXY Reviewed date:07/27/2024 01:28:46 PM Interpretation: Performing Lab: Notes/Report: Vit D, 25-Hydroxy 57.0 30.0-80.0 ng/mL MAGNESIUM Reviewed date:07/27/2024 01:28:46 PM Interpretation: Performing Lab: Notes/Report: Magnesium 2.1 1.9-2.6 mg/dL COMPREHENSIVE METABOLIC PANE L Reviewed date:02/24/2025 08:00:24 [...] 3.2-5.0 g/dL Total Bilirubin 0.8 0.0-1.4 mg/dL URINALYSIS MICROSCOPIC ONLY Reviewed date:07/27/2024 02:18:39 [...] 1.01 <=0.20 mg/mg creat Creatinine, Urine 105.0 Reason For Referral No Information Medications Medication [...] DAILY; Duration: 0 Active OneTouch Delica Plus [id number] - USE DIRECTED TO TEST BLOOD GLUCOSE [...] smokes , second hand sm mo smokes smokes , second hand sm mo [...] mo smokes , second hand sm mo Problems Problem Type SNOMED Code ICD Code Onset Dates Problem Status W/U Status Risk Notes Problem Anemia in chronic kidney disease (812164293) 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) Active confirmed Problem Diabetic renal disease (549672731) Type 2 diabetes mellitus with diabetic chronic kidney disease (E11.22) Active confirmed Problem Hyperglycemia due to type 2 diabetes mellitus (141967095340223) Type 2 diabetes mellitus with hyperglycemia (E11.65) Active confirmed Problem Disorder due to type 2 diabetes mellitus (086628136) Type 2 diabetes mellitus with unspecified complications (E11.8) Active confirmed Problem Type II diabetes mellitus without complication (298297024) Type 2 diabetes mellitus without complications (E11.9) Active confirmed Problem Vitamin D deficiency (65376418) Vitamin D deficiency, unspecified (E55.9) Active confirmed Problem 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 Problem Hyperlipidemia (80629652) Hyperlipidemia, unspecified (E78.5) Active confirmed Problem Essential hypertension (69666856) Essential (primary) hypertension (I10) Active confirmed Problem Cerebral infarction (352078661) Cerebral infarction, unspecified (I63.9) Active confirmed Problem Autoimmune hepatitis (306398031) Autoimmune hepatitis (K75.4) Active confirmed Problem Chronic kidney disease stage 3 (disorder) (040818586) Chronic kidney disease, stage 3 (moderate) (N18.3) Active confirmed Problem Long-term current us e of anticoagulant (706565231) jail (current) use of anticoagulants (Z79.01) Active confirmed Problem Benign prostatic hypertrophy without outflow obstruction (547797335) Benign prostatic hyperplasia without lower urinary tract symptoms (N40.0) Active confirmed Problem Backache (181405774) Back pain, unspecified back location, unspecified back pain laterality, unspecified chronicity (M54.9) Active confirmed Problem Adult health examination (800399852) Adult general medical exam (Z00.00) Active confirmed Problem Hypothyroidism (68155742) Hypothyroidism, unspecified type (E03.9) Active confirmed Problem Annual health maintenance examination (25002549) Annual physical exam (Z00.00) Active confirmed Problem Vitamin D deficiency (03567181) Vitamin D deficiency (E55.9) Active confirmed Problem Use of anticoagulation (245468548) Chronic anticoagulation (Z79.01) Active confirmed Problem Obesity (963650538) Obesity (BMI 30-39.9) (E66.9) Active confirmed Problem Type II diabetes mellitus without complication (996418239) Type 2 diabetes mellitus without complication, unspecified whether intermediate teacher insulin use (E11.9) Active confirmed Problem Chronic kidney disease stage 3B (disorder) (929972217) Chronic kidney disease, stage 3b (N18.32) Active confirmed Problem Obstructive sleep apnea (66914302) Obstructive sleep apnea (G47.33) Active confirmed Problem Screening for malignant neoplasm of prostate (542631564) Prostate cancer screening (Z12.5) Active confirmed Problem Vitamin B>12< deficiency anaemia (76117355) Anemia due to vitamin B12 deficiency, 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) Active confirmed Problem Body mass index 30.0 0 to 34.99 (751526531250974) BMI 34.0-34.9,adult (Z68.34) Active confirmed Problem Degeneration of lumbar intervertebral disc (89148468) Degenerative disc disease, lumbar (M51.36) Active confirmed Problem Benign prostatic hypertrophy without outflow obstruction (246614271) BPH loc w/o ur obs/LUTS (N40.0) Active confirmed Problem Elevated level of transaminase and lactic acid dehydrogenase (finding) (874554462) Transaminitis (R74.01) Active confirmed Problem Bilateral low ba ck pain, unspecified chronicity, unspecified whether sciatica present (M54.50) Active confirmed Problem Aortic valve disease (0425111) Aortic valve disease (I35.9) Active confirmed Problem History of heart valve repair with prosthesis (377203674040880) Aortic valve replaced (Z95.2) Active confirmed Problem Diabetes mellitus type 2 in nonobese (082609729) Diabetes mellitus type 2 in nonobese (E11.9) Active confirmed Problem Obstructive sleep apnea syndrome (98937910) ARGENIS on CPAP (G47.33) Active confirmed Vital Signs Heart Rate 105 /min 02/24/2025 Blood pressure diastolic 68 mm Hg 02/24/2025 Oximetry 99 % 02/24/2025 Height 66 in 02/24/2025 Blood pressure systolic 122 mm Hg 02/24/2025 Weight 204 lbs 02/24/2025 BMI 32.92 kg/m2 02/24/2025 Encounters Encounter Location Date Provider Diagnosis [facility] [address] [place] [address] 04/28/2024 JUMANA INFANTE [facility] [address] [place] [address] 05/31/2024 CHRISTINA WALTERS [facility] [address] [place] [address] 06/03/2024 CHRISTINA WALTERS [facility] [address] [place], [place] 06/21/2024 JUMANA INFANTE [facility] [address] [place] [address] 06/28/2024 CHRISTINA WALTERS [facility] [address] [place], [place] 07/28/2024 CHRISTINA SELENA [facility] [address] [place], [place] 07/29/2024 CHRISTINA SELENA [facility] [address] [place] 08/12/2024 CHRISTINA SELENA [facility] [address] [place], [place] 08/16/2024 CHRISTINA SELENA [facility] [address] [place] [address] 08/16/2024 CHRISTINA SELENA [facility] [address] [place] [address] 08/23/2024 CHRISTINA SELENA [facility] [address] [place], [place] 08/24/2024 TALAL INFANTE [facility] [address] [place], [place] 08/27/2024 TALAL INFANTE [facility] [address] [place] [address] 11/05/2024 CHRISTINA SELENA [facility] [address] [place] 11/09/2024 TALAL INFANTE [facility] [address] [place] [address] 12/06/2024 CHRISTINA SELENA [facility] [address] [place] [address] TALAL INFANTE [facility] [address] [place] [address] 01/24/2025 CHRISTINA SELENA [facility] [address] [place] 02/22/2025 CHRISTINAJUAN DANIEL MICHAELA Adult general medica l exam Z00.00 ; Type 2 diabetes mellitus with unspecified complications E11.8 and Hyperlipidemia, unspecified E78.5 [facility] [address] [place] 03/18/2025 CHRISTINA SELENA [facility] [address] [place] [address] 02/24/2025 CHRISTINA WALTERS Type 2 diabetes phuong [...] Encounter for blood pressure examination Z01.[address] [facility] [address] [place] [address] 05/31/2024 CHRSITINA WALTERS Type 2 diabetes phuong itus with [...] (BMI 30-39.9) E66.9 and BMI 34.0-34.9,adult Z68.[address] [place] [address] 08/17/2024 CHRISTINA WALTERS Type 2 diabetes phuong [...] (BMI 30-39.9) E66.9 and BMI 34.0-34.9,adult Z68.[address] [place] [address] 11/18/2024 CHRISTINA SELENA Type 2 diabetes phuong [...] (BMI 30-39.9) E66.9 and BMI 34.0-34.9,adult Z68.34 Assessments Encounter Date Diagnosis (ICD Code) Assessment Notes Treatment Notes Treatment Clinical Notes Section Notes 05/31/2024 Type 2 diabetes mellitus with diabetic [...] Dictation was accomplished with the use of Good[employer] voice recognition software, prone to medical misidentifications [...] Dictation was accomplished with the use of [employer] voice recognition software, prone to medical misidentifications [...] Dictation was accomplished with the use of [employer] voice recognition software, prone to medical misidentifications [...] Dictation was accomplished with the use of [employer] voice recognition software, prone to medical misidentifications [...] with < 0.2% episodes of apnea. Sees [facility] sleep medicine. Overnight Pulse oximeter ordered. # [...] Dictation was accomplished with the use of [employer] voice recognition software, prone to medical misidentifications [...] with < 0.2% episodes of apnea. Sees [facility] sleep medicine. Overnight Pulse oximeter ordered. # [...] Dictation was accomplished with the use of Good[employer] voice recognition software, prone to medical misidentifications [...] log exercise and discussed fitness Apps like bOombate which can help keep log off calories [...] Dictation was accomplished with the use of Good[employer] voice recognition software, prone to medical misidentifications [...] log exercise and discussed fitness Apps like [employer] which can help keep log off calories [...] Dictation was accomplished with the use of Good[employer] voice recognition software, prone to medical misidentifications [...] log exercise and discussed fitness Apps like [employer] which can help keep log off calories [...] Dictation was accomplished with the use of Good[employer] voice recognition software, prone to medical misidentifications [...] with < 0.2% episodes of apnea. Sees [facility] sleep medicine. Overnight Pulse oximeter ordered. # [...] Dictation was accomplished with the use of Good[employer] voice recognition software, prone to medical misidentifications [...] Dictation was accomplished with the use of Good[employer] voice recognition software, prone to medical misidentifications [...] Dictation was accomplished with the use of Good[employer] voice recognition software, prone to medical misidentifications [...] Dictation was accomplished with the use of Good[employer] voice recognition software, prone to medical misidentifications [...] Dictation was accomplished with the use of GoodRx voice recognition software, prone to medical misidentifications [...] with < 0.2% episodes of apnea. Sees [facility] sleep medicine. Overnight Pulse oximeter ordered. # [...] Dictation was accomplished with the use of Good[employer] voice recognition software, prone to medical misidentifications [...] log exercise and discussed fitness Apps like [employer]Oombate which can help keep log off calories [...] Dictation was accomplished with the use of Good[employer] voice recognition software, prone to medical misidentifications [...] Dictation was accomplished with the use of GoodRx voice recognition software, prone to medical misidentifications [...] log exercise and discussed fitness Apps like [employer] which can help keep log off calories [...] Dictation was accomplished with the use of Good[employer] voice recognition software, prone to medical misidentifications [...] Dictation was accomplished with the use of GoodRx voice recognition software, prone to medical misidentifications [...] with < 0.2% episodes of apnea. Sees [facility] sleep medicine. Overnight Pulse oximeter ordered. # [...] Dictation was accomplished with the use of GoodRx voice recognition software, prone to medical misidentifications [...] Dictation was accomplished with the use of GoodRx voice recognition software, prone to medical misidentifications [...] Dictation was accomplished with the use of GoodRx voice recognition software, prone to medical misidentifications [...] log exercise and discussed fitness Apps like bOombate which can help keep log off calories [...] Dictation was accomplished with the use of GoodRx voice recognition software, prone to medical misidentifications [...] with < 0.2% episodes of apnea. Sees [facility] sleep medicine. Overnight Pulse oximeter ordered. # [...] Dictation was accomplished with the use of GoodRx voice recognition software, prone to medical misidentifications [...] with < 0.2% episodes of apnea. Sees [facility] sleep medicine. Overnight Pulse oximeter ordered. # [...] Dictation was accomplished with the use of GoodRx voice recognition software, prone to medical misidentifications [...] log exercise and discussed fitness Apps like bOombate which can help keep log off calories [...] Dictation was accomplished with the use of GoodRx voice recognition software, prone to medical misidentifications [...] Dictation was accomplished with the use of GoodRx voice recognition software, prone to medical misidentifications [...] Dictation was accomplished with the use of GoodRx voice recognition software, prone to medical misidentifications [...] with < 0.2% episodes of apnea. Sees [facility] sleep medicine. Overnight Pulse oximeter ordered. # [...] Dictation was accomplished with the use of GoodRx voice recognition software, prone to medical misidentifications [...] Dictation was accomplished with the use of Good[employer] voice recognition software, prone to medical misidentifications [...] log exercise and discussed fitness Apps like bOombate which can help keep log off calories [...] Dictation was accomplished with the use of GoodRx voice recognition software, prone to medical misidentifications [...] with < 0.2% episodes of apnea. Sees [facility] sleep medicine. Overnight Pulse oximeter ordered. 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 A1C at next visit. Pt intermittenly checks POC are reports fine . has not seen podiatry in quiet some time. Does have some neuropathy # Hyperlipidemia: Continue statin # CKD III. Baseline creaitnine .. Followed by Dr. Guaman Case discussed with collaborating physician Alexus Infante who reviewed the assessment and plan. Chart, medications, labs, vital signs reviewed. Dictation was accomplished with the use of GoodRx voice recognition software, prone to medical misidentifications [...] log exercise and discussed fitness Apps like bOombate which can help keep log off calories [...] Dictation was accomplished with the use of GoodRx voice recognition software, prone to medical misidentifications [...] Dictation was accomplished with the use of [employer] recognition software, prone to medical misidentifications and [...] with < 0.2% episodes of apnea. Sees [facility] sleep medicine. Overnight Pulse oximeter ordered. # [...] Dictation was accomplished with the use of GoodRx voice recognition software, prone to medical misidentifications [...] Dictation was accomplished with the use of [employer] voice recognition software, prone to medical misidentifications [...] Dictation was accomplished with the use of GoodRx voice recognition software, prone to medical misidentifications [...] log exercise and discussed fitness Apps like bOombate which can help keep log off calories [...] Dictation was accomplished with the use of GoodRx voice recognition software, prone to medical misidentifications [...] with < 0.2% episodes of apnea. Sees [facility] sleep medicine. Overnight Pulse oximeter ordered. # [...] Dictation was accomplished with the use of Good[employer] voice recognition software, prone to medical misidentifications [...] log exercise and discussed fitness Apps like bOombate which can help keep log off calories [...] Dictation was accomplished with the use of Good[employer] voice recognition software, prone to medical misidentifications [...] Dictation was accomplished with the use of [employer] voice recognition software, prone to medical misidentifications [...] Dictation was accomplished with the use of Good[employer] voice recognition software, prone to medical misidentifications [...] Dictation was accomplished with the use of Good[employer] voice recognition software, prone to medical misidentifications [...] log exercise and discussed fitness Apps like bOombate which can help keep log off calories [...] Dictation was accomplished with the use of Good[employer] voice recognition software, prone to medical misidentifications [...] log exercise and discussed fitness Apps like bOombate which can help keep log off calories [...] Dictation was accomplished with the use of Good[employer] voice recognition software, prone to medical misidentifications [...] log exercise and discussed fitness Apps like bOombate which can help keep log off calories [...] Dictation was accomplished with the use of Good[employer] voice recognition software, prone to medical misidentifications [...] log exercise and discussed fitness Apps like [employer]Oombate which can help keep log off calories [...] Dictation was accomplished with the use of GoodRx voice recognition software, prone to medical misidentifications [...] COMPREHENSIVE METABOLIC PANEL 04/27/2019 COMPREHENSIVE METABOLIC PANEL 10/15/2021 COMPREHENSIVE METABOLIC PANEL 05/21/2021 HEMOGLOBIN A1C 11/26/2022 HEMOGLOBIN A1C 10/27/2017 HEMOGLOBIN A1C 10/15/2021 HEMOGLOBIN A1C 05/21/2021 HEMOGLOBIN A1C 04/27/2019 HEMOGLOBIN A1C 06/02/2020 HEMOGLOBIN A1C 11/02/2019 LIPID PANEL 06/02/2020 LIPID PANEL 11/02/2019 LIPID PANEL 09/01/2018 LIPID PANEL 04/27/2019 LIPID PANEL 05/21/2021 LIPID PANEL 10/15/2021 PSA, SCREEN 10/15/2021 TSH 10/15/2021 URINALYSIS, COMPLETE 04/27/2019 URINALYSIS, COMPLETE 09/01/2018 URINALYSIS, COMPLETE 11/02/2019 URINALYSIS, COMPLETE 06/02/2020 AST/SGOT 11/21/2021 US Extrem Non-Vascular RT 05/15/2023 PT/INR 04/27/2019 LIPID PANEL, STANDARD 11/14/2023 LIPID PANEL, STANDARD 04/06/2024 HEPATITIS PANEL, ACUTE W/REFLEX TO CONFI RMATION 11/21/2021 COMPREHENSIVE METABOLIC PANEL 11/14/2023 COMPREHENSIVE METABOLIC PANEL 04/06/2024 COMPREHENSIVE METABOLIC PANEL 02/19/2024 COMPREHENSIVE METABOLIC PANEL 02/22/2025 CBC (INCLUDES DIFF/PLT) 02/22/2025 CBC (INCLUDES DIFF/PLT) 02/19/2024 CBC (INCLUDES DIFF/PLT) [...] CULTURE 12/04/2022 Next Appt Details Provider Name:CHRISTINA MICHAELA, 06/30/2025 10:00:00 AM, [address], [place], [address], Insurance Providers Payer Name Payer Address Payer Phone Subscriber Number Group Number Insured Name Patient Relationship to Insured Coverage Start Date Coverage End Date Medicare Part B J14 [address] [place] [address] [id number] IRVIN SUAZO Self - patient is the insured MED[employer] [address] [place] [address] [id number] IRVIN SUAZO Self - patient is the [...]
== END 2025-04-18 11:28 | disposition home or self-care (01) ==
LOC: HO.ACS 11:05
PROVIDERS: PCP Physician Assistant Medical; Visit Provider Internal Medicine Medical Oncology
DX: Z79.01 Long term (current) use of anticoagulants (principal)

== ENCOUNTER → 2025-04-18 11:05 | Outpatient (BNVA) | payer MEDICARE, SELFPAY | PROVIDERS: PCP Physician Assistant Medical; Visit Provider Internal Medicine Medical Oncology | DX: I26.99 Other pulmonary embolism without acute cor pulmonale (principal); Z79.01 Long term (current) use of anticoagulants; Z51.81 Encounter for therapeutic drug level monitoring | CPT/HCPCS: 85610; 99211 ==

== ENCOUNTER 2025-05-02 11:05 | Outpatient (AMB) | payer MEDICARE, SELFPAY ==
[2025-05-02 11:12] LABS: Prothrombin Time Whole Bld POC 36.1 sec (11.1-13.5); ~PT, ~INR - Anti Coag Clinic 3.0 (0.9-1.1)
--- NOTE | 2025-05-02 11:16 | MHC.OFFVISCO ---
Intake Intake Visit Reasons: Anticoagulation Allergies lovenox Allergy (Severe, Uncoded 05/02/25 11:06) bleeding morphine Allergy (Severe, Uncoded 05/02/25 11:06) Rash kepra Adverse Reaction (Severe, Uncoded 05/02/25 11:06) Drowsy Medication List - Last Reconciled 05/02/25 by Deepika Payne, RN amoxicillin 2,000 mg PO ONCE PRN azathioprine 150 mg PO DAILY calcium carbonate-vitamin D3 600 mg-10 mcg (400 unit) caps PO DAILY cholecalciferol (vitamin D3) 25 mcg PO DAILY finasteride 5 mg PO DAILY gabapentin 600 mg PO BID metoprolol tartrate 12.5 mg PO BID multivitamin 1 tab PO DAILY nitrofurantoin monohyd/m-cryst 100 mg caps PO omega 9-ptc-tzi-fish oil 1,000 (120-180) mg (Fish Oil) 1 cap PO BID simvastatin 40 mg PO BEDTIME tamsulosin 0.8 mg PO DAILY triamcinolone acetonide 0.1% 1 appl topical DAILY PRN warfarin 2.5 mg See Protocol PO DAILY Nursing Note INR: 3.0 in therapeutic range of 2.5-3.5 Medications and supplements reviewed No changes in health, diet, medications, or supplements, Denies any signs and symptoms of bleeding or bruising or clotting. Bleeding, bruising, clotting discussed Nutritional guidance given Dose: 5mg X 5 days and 7.5 X 2 days (Mon & Th) F/U INR: 3 weeks Patient verbalizes understanding of instructions with read back given Anti-Coag Initial Assessment Social Hx Patient Tobacco Use Status: Never used Tobacco alcohol intake: current Alcohol intake frequency: holidays/special occasions only Cardiovascular Hx: HTN Lung Disease HX: DVT/PE and Other Endocrine Hx: Diabetes and Autoimmune disorders Blood Disorder Hx: Hyperlipidemia and Hepatitis Hx: Kidney Disease and Prostate Neurological Hx: Epilepsy/Seizures and Stroke/TIA Cancer HX: No Psych. Illness/Depression: No Coding Level of Care Code Est Patient Level 1 Diagnoses Current use of anticoagulant therapy Z79.01 Assessment & Plan Assessment & Plan (1) Current use of anticoagulant therapy: Code(s): Z79.01 - shelter (current) use of anticoagulants Category: Medical
--- OUTSIDE RECORDS SUMMARY | 2025-05-02 11:47 | XMS_ITS | Clinical Summary ---
Author Organization [facility] Address [address] [address] Phone Care Team Providers Care Family Life Counselor Name Role Phone Osito Infante MD Primary [...] this topic Medical Devices Implanted Type Area Line Out Worker Device Identifier Shelf Expiration Date Model / Serial / Lot Filter Filter Leg Prosthetic Valve Prosthetic Valve Aorta Insurance [employer] MEDEX SUPPLEMENT MEDICARE PART A & B [employer] MEDEX SUPPLEMENT MEDICARE PART A & B [employer] MED[employer] SUPPLEMENT MEDICARE PART A & B [employer] MED[employer] SUPPLEMENT MEDICARE PART A & B [employer] MED[employer] SUPPLEMENT MEDICARE PART A & B MEDEX SUPPLEMENT MEDICARE PART A & B Care Teams Family Life Counselor Relationship Specialty Start Date End Date Osito Infante MD [address] [place] [id number] PCP - General Internal Medicine 11/29/22 Additional Source Comments The information contained in this document represents components of the legal health record. It is not the complete legal health record.[facility]
--- OUTSIDE RECORDS SUMMARY | 2025-05-02 11:47 | XMS_ITS | Clinical Summary ---
Author Organization [facility] Address [address] [place] [phone] Phone Care Team Providers Care Assembly Associate Name Role Phone Stella Lemus Primary Care Provider [phone] Allergies Active Allergy Reactions Criticality Noted Date [...] Office Visit [facility] [address] [facility] [address] [place] [address] Joaquin Guaman MD Stage 3b [...] Office Visit [facility] [address] [phone] [place] [facility] [address] [phone] Health Maintenance Due Date Last Done Comments Hepatitis B Vaccine (1 of 3 - Risk 3-dose series) 2003 Influenza Vaccine (#1) 2025 7, 07/23/2015, 07/13/2015, Additional history exists Pneumococcal Vaccine: 50+ Years Completed 02/17/2015, 07/06/2010, 09/22/2007 Pneumococcal Vaccine: Peds ( 0 to 5 Years) and At-Risk Patients (6 to 49 Years) Discontinued 02/17/2015, 07/06/2010, 09/22/2007 Insurance Medicare Medicare Care Teams Assembly Associate Relationship Specialty Start Date End Date Stella Lemus [address] [place] [address] PCP - General 08/05/23
--- OUTSIDE RECORDS SUMMARY | 2025-05-02 11:47 | XMS_ITS | Clinical Summary ---
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[facility] V24, [facility] V28) 12/01/2023 Factor V Leiden ([facility] V24) 12/01/2023 ARGENIS (obstructive sleep apnea) 12/01/2023 Seizures ([facility] V24, [facility] V28) 12/01/2023 Allergic rhinitis 07/21/2019 Autoimmune hepatitis ([facility] V24, [facility] V28) 07/21/2019 Overview (12/01/2023): 2011 BPH (benign prostatic hyperplasia) 07/21/2019 CAD (coronary artery disease) 07/21/2019 Overview (12/01/2023): CABG Carotid artery stenosis 07/21/2019 Overview (12/01/2023): Bilateral Cataract 07/21/2019 Chronic venous insufficiency 07/21/2019 Hyperlipidemia 07/21/2019 Hypertension 07/21/2019 Interstitial lung disease ([facility] V24, [facility] V28) 07/21/2019 Nephrolithiasis 07/21/2019 Type 2 diabetes mellitus ([facility] V24, [facility] V 28) 07/21/2019 DM (diabetes mellitus), type 2 with peripheral vascular complications ([facility] V24, [facility] V28) 07/21/2019 DM (diabetes mellitus), type 2 with renal complications ([facility] V24, [facility] V28) 07/21/2019 Type 2 diabetes mellitus wit h cataract ([facility] V24, [facility] V28) 07/21/2019 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 Aneurysm of ascending aorta ([facility] V24) 2016 Iron deficiency anemia 12/12/2015 Immunizations [...] Medical History Date Comments Factor V Leiden ([facility] V24) DX :Factor V Leiden (HCC) Seizures ([facility] V24, [facility] V28) DX:Seizures (HCC) DVT (deep venous thrombosis) ([facility] V24, [facility] V28) DX:DVT (deep venous thrombos is) (HCC) 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, [facility]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 (HCC) Aortic valve replaced DX:Aortic valve replaced ARGENIS (obstructive sleep apnea) DX :ARGENIS (obstructive sleep apnea) BPH (benign prostatic hyperplasia) 07/21/2019 DX:BPH (benign prostatic hyperplasia) CKD (chronic kidney disease) stage 3, GFR 30-59 ml/min ([facility] V24, [facility] V28) DX:CKD (chronic kidney disea se) stage 3, GFR 30-59 ml/min ([facility]) Hyperlipidemia 07/21/2019 DX:Hyperlipidemi a Hypertension 07/21/2019 DX:Hypertension CAD (coronary artery disease) 07/21/2019 DX :CAD (coronary artery disease); COMMENT: CABG DM (diabetes mellitus), type 2 with renal complications ([facility] V24, [facility] V28) 07/21/2019 DX:DM (diabetes mellitus), t ype 2 with renal complications (HCC) Nephrolithiasis 07/21/2019 DX:Nephrolithias is Autoimmune hepatitis ([facility] V24, [facility] V28) 07/21/2019 DX:Autoimmune hepatitis (HCC ) Interstitial lung disease ([facility]/HCC V24, [facility] V28) 07/21/2019 DX:Interstitial lung disease (HCC) Allergic rhinitis 07/21/2019 DX:Allergic rh initis Cataract 07/21/2019 DX:Cataract Type 2 diabetes mellitus wit h cataract ([facility] V24, [facility] V28) 07/21/2019 DX:Type 2 diabetes mellitus with cataract ([facility]) Chronic venous insufficiency 07/21/2019 DX: Chronic venous insufficiency DM (diabetes mellitus), type 2 with peripheral vascular complications ([facility] V24, [facility] V28) 07/21/2019 DX:DM (diabetes mellitus), type 2 with peripheral vascular complications ([facility]) Carotid artery stenosis 07/21/2019 DX:Carot id artery stenosis; COMMENT: Bilateral History of DVT (deep vein thrombosis) 08/21/2018 DX:History of DVT (deep vein thrombosis) 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:Post -thrombotic syndrome Aneurysm of ascending aorta ([facility] V24) 07/28/2017 DX:Aneurysm of ascending aor ta ([facility]) Family History Medical History Relation [...] 10:00 AM EDT Office Visit G[facility] - [place] [address] [facility] [address] [facility] [address] [place] [phone] Henry Morris MD [address] [facility] [address] [place] [address] Health Maintenance Due Date Last Done Comments Diabetes: Annual Foot Exam 1955 Diabetes: Annual Retina Eye Exam 1955 DTaP,Tdap,and Td Vaccines (1 - Tdap) 1962 Zoster Vaccines (1 of 2) 1962 Cholesterol Screening (Lipid Panel) 08/24/2022 Falls Risk [...] on patient's age to complete this topic Hepatitis A Vaccines Aged Out No long er eligible based on patient's age to complete this topic Hepatitis B Vaccines Aged Out No long er eligible based [...] at a health care facility Diabetic complication ([facility] V24, [facility] V28) Hyperlipemia COMPREHENSIVE METABOLIC PANEL Routine 02/23/2025 8:50 AM EDT Routine general medical examination at a [facility] care facility Diabetic complication ([facility] V24, [facility] V28) Hyperlipemia CBC AND DIFFERENTIAL Routine 02/23/2025 8:50 AM EDT Routine general medical examination at a [facility] facility Diabetic complication ([facility] V24, [facility] V28) Hyperlipemia MICROALBUMIN CREATININE URINE RATIO Routine 01/25/2025 3:12 PM EDT Chronic kidney disease (CKD) stage G3b/A1, moderately decreased glomerular filtration rate (GFR) between 30-44 mL/min/1.73 square meter and albuminuria creatinine ratio les* ([facility] V24, [facility] V28) Renal osteodystrophy from Last 3 Months or Most Recently Relevant to Health Maintenance Results * (ABNORMAL) CBC auto differential (02/23/2025 8:50 AM EDT) WBC 6.8 4.8 - 10.8 K/mcL LAB HEMETOLOGY METHOD 02/23/2025 10:17 AM EDT [facility] RBC 4.70 4.50 - 5.50 M/mcL LAB HEMETOLOGY METHOD 02/23/2025 10:17 AM EDT [facility] Hemoglobin 14.4 13.5 - 17.5 g/dL LAB HEMETOLOGY METHOD 02/23/2025 10:17 AM EDT [facility] Hematocrit 46.2 42.0 - 54.0 % LAB HEMETOLOGY METHOD 02/23/2025 10:17 AM [facility] MCV 98.9(H) 79.0 - 98.0 FL LAB HEMETOLOGY METHOD 02/23/2025 10:17 AM [facility] MCH 30.8 27.0 - 32.0 pcg LAB HEMETOLOGY METHOD 02/23/2025 10:17 AM [facility] MCHC 31.2(L) 32.0 - 37.0 g/dL LAB HEMETOLOGY METHOD 02/23/2025 10:17 AM [facility] RDW 15.1(H) 11.0 - 15.0 % LAB HEMETOLOGY METHOD 02/23/2025 10:17 AM [facility] Platelets 173 130 - 400 K/mcL LAB HEMETOLOGY METHOD 02/23/2025 10:17 AM [facility] MPV 10.9 7.0 - 11.0 FL LAB HEMETOLOGY METHOD 02/23/2025 10:17 AM [facility] NRBC 0.0 <1.0 % LAB HEMETOLOGY METHOD 02/23/2025 10:17 AM [facility] NRBC Absolute 0.00 <0.10 K/mcL LAB HEMETOLOGY METHOD 02/23/2025 10:17 AM [facility] Neutrophils Relative 60.1 % LAB HEMETOLOGY METHOD 02/23/2025 10:17 AM [facility] Lymphocytes Relative 27.5 % LAB HEMETOLOGY METHOD 02/23/2025 10:17 AM [facility] Monocytes Relative 7.6 % LAB HEMETOLOGY METHOD 02/23/2025 10:17 AM [facility] Eosinophils Relative 3.8 % LAB HEMETOLOGY METHOD 02/23/2025 10:17 AM EDT [facility] Basophils Relative 0.6 % LAB HEMETOLOGY METHOD 02/23/2025 10:17 AM EDT [facility] Immature Granulocytes Relative 0.4 % LAB HEMETOLOGY METHOD 02/23/2025 10:17 AM EDT [facility] Neutrophils Absolute 4.09 1.50 - 7.00 K/mcL LAB HEMETOLOGY METHOD 02/23/2025 10:17 AM EDT [facility] Lymphocytes Absolute 1.87 1.00 - 5.00 K/mcL LAB HEMETOLOGY METHOD 02/23/2025 10:17 AM EDT [facility] Monocytes Absolute 0.52 0.20 - 1.00 K/mcL LAB HEMETOLOGY METHOD 02/23/2025 10:17 AM EDT [facility] Eosinophils Absolute 0.26 0.00 - 0.50 K/mcL LAB HEMETOLOGY METHOD 02/23/2025 10:17 AM EDT [facility] Basophils Absolute 0.04 0.00 - 0.20 K/mcL LAB HEMETOLOGY METHOD 02/23/2025 10:17 AM EDT [facility] Immature Granulocytes Absolute 0.03 0.00 - 0.03 K/mcL LAB HEMETOLOGY METHOD 02/23/2025 10:17 AM EDT [facility] Blood Venous blood specimen / Unknown Venipuncture / Unknown 02/23/2025 8:50 AM EDT 02/23/2025 9:55 AM EDT us Stella MALDONADO LAB BLOOD ORDERABLES Final Resul t [facility] [address] [place] [address], * (ABNORMAL) Comprehensive metabolic panel (02/23/2025 8:50 AM EDT) Sodium 141 133 - 145 mmol/L LAB CHEMISTRY METHOD 02/23/2025 10:54 AM [facility] Potassium 4.5 3.5 - 5.5 mmol/L LAB CHEMISTRY METHOD 02/23/2025 10:54 AM [facility] Chloride 108 96 - 110 mmol/L LAB CHEMISTRY METHOD 02/23/2025 10:54 AM [facility] CO2 29 21 - 32 mmol/L LAB CHEMISTRY METHOD 02/23/2025 10:54 AM [facility] Anion Gap 4 3 - 11 LAB CHEMISTRY METHOD 02/23/2025 10:54 AM [facility] Glucose 106(H) 70 - 100 mg/dL LAB CHEMISTRY METHOD 02/23/2025 10:54 AM [facility] BUN 32(H) 5 - 25 mg/dL LAB CHEMISTRY METHOD 02/23/2025 10:54 AM [facility] Creatinine 1.71(H) 0.70 - 1.30 mg/dL LAB CHEMISTRY METHOD 02/23/2025 10:54 AM [facility] eGFR 39(L) >=60 mL/min/1. 73m2 LAB CHEMISTRY METHOD 02/23/2025 10:54 AM [facility] Comment:Calculation based on the Chronic Kidney Disease Epidemiology Collaboration (CKD-EPI) equation refit without adjustment for race. BUN/Creatinine Ratio 18.7 LAB CHEMISTRY METHOD 02/23/2025 10:54 AM [facility] Calcium 9.7 8.5 - 10.5 mg/dL LAB CHEMISTRY METHOD 02/23/2025 10:54 AM [facility] AST (SGOT) 30 10 - 42 unit/L LAB CHEMISTRY METHOD 02/23/2025 10:54 AM [facility] ALT (SGPT) 20 10 - 60 unit/L LAB CHEMISTRY METHOD 02/23/2025 10:54 AM EDT [facility] Alkaline Phosphatase 69 42 - 121 unit/L LAB CHEMISTRY METHOD 02/23/2025 10:54 AM EDT [facility] Total Protein 7.3 6.0 - 8.0 g/dL LAB CHEMISTRY METHOD 02/23/2025 10:54 AM EDT [facility] Albumin 3.4 3.2 - 5.0 g/dL LAB CHEMISTRY METHOD 02/23/2025 10:54 AM EDT [facility] Total Bilirubin 0.8 0.0 - 1.4 mg/dL LAB CHEMISTRY METHOD 02/23/2025 10:54 AM EDT [facility] Blood Venous blood specimen / Unknown Venipuncture / Unknown 02/23/2025 8:50 AM EDT 02/23/2025 10:54 AM EDT us Stella MALDONADO LAB BLOOD ORDERABLES Final Resul t [facility] [address] [place] [address], * (ABNORMAL) Microalbumin creatinine urine ratio (01/25/2025 3:12 PM EDT) Creatinine, Urine 105.0 mg/dL LAB CHEMISTRY METHOD 01/25/2025 8:46 PM EDT [facility] Microalb, Ur 868.0(H) 0.0 - 29.0 mg/L LAB CHEMISTRY METHOD 01/25/2025 8:46 PM EDT [facility] Microalb/Crea t Ratio 827(H) <30 mg/g creat LAB CHEMISTRY METHOD 01/25/2025 8:46 PM EDT [facility] Urine Urine specimen obtained by clean catch procedure / Unknown Non-blood Collection / Unknown 01/25/2025 3:12 PM EDT 01/25/2025 4:11 PM EDT us Joaquin Guaman MD LAB URINE ORDERABLES Final Re sult [facility] [address] [place] [address], from Last 3 Months or Most Recently Relevant to Health Maintenance Insurance MEDICARE [facility] Advance Directives Documents on File Type Date Recorded Patient Distillery Miller Expl anation Health Care Decision (hx) 01/06/2012 AD PEREZ DIRECTIVE Health Care Decision (hx) 01/06/2012 AD PEREZ DIRECTIVE Health Care Decision (hx) 01/06/2012 AD PEREZ DIRECTIVE Care Teams Space Physicist Relationship Specialty Start Date End Date Espinoza Infante MD [address] [facility] [address] [place] [address] PCP - General Internal Medicine 10/18/24
== END 2025-05-02 11:21 | disposition home or self-care (01) ==
LOC: HO.ACS 11:05
PROVIDERS: PCP Physician Assistant Medical; Visit Provider Internal Medicine Medical Oncology
DX: Z79.01 Long term (current) use of anticoagulants (principal)

== ENCOUNTER → 2025-05-02 11:05 | Outpatient (BNVA) | payer MEDICARE, SELFPAY | PROVIDERS: PCP Physician Assistant Medical; Visit Provider Internal Medicine Medical Oncology | DX: Z51.81 Encounter for therapeutic drug level monitoring (principal); Z79.01 Long term (current) use of anticoagulants | CPT/HCPCS: 85610; 99211 ==

== ENCOUNTER 2025-05-24 09:47 | Outpatient (AMB) | payer MEDICARE, SELFPAY ==
[2025-05-24 10:05] LABS: Prothrombin Time Whole Bld POC 19.0 sec (11.1-13.5); ~PT, ~INR - Anti Coag Clinic 1.6 (0.9-1.1)
--- NOTE | 2025-05-24 10:17 | MHC.OFFVISCO ---
Intake Intake Visit Reasons: Anticoagulation Allergies lovenox Allergy (Severe, Uncoded 05/24/25 09:59) bleeding morphine Allergy (Severe, Uncoded 05/24/25 09:59) Rash kepra Adverse Reaction (Severe, Uncoded 05/24/25 09:59) Drowsy Medication List - Last Reconciled 05/24/25 by Deepika Payne RN amoxicillin 2,000 mg PO ONCE PRN azathioprine 150 mg PO DAILY calcium carbonate-vitamin D3 600 mg-10 mcg (400 unit) caps PO DAILY cholecalciferol (vitamin D3) 25 mcg PO DAILY finasteride 5 mg PO DAILY gabapentin 600 mg PO BID metoprolol tartrate 12.5 mg PO BID multivitamin 1 tab PO DAILY nitrofurantoin monohyd/m-cryst 100 mg caps PO omega 9-ibe-rym-fish oil 1,000 (120-180) mg (Fish Oil) 1 cap PO BID simvastatin 40 mg PO BEDTIME tamsulosin 0.8 mg PO DAILY triamcinolone acetonide 0.1% 1 appl topical DAILY PRN warfarin 2.5 mg See Protocol PO DAILY Nursing Note INR: 1.6?out of therapeutic rangeof 2.5-3.5 Question of another missed dose. Missed dose last week and dose was increased. Medications and supplements reviewed Patient status: feels well Medications or supplements: no changes Diet: usual diet for pt Denies any signs and symptoms of bleeding or clotting or unusual bruising Bleeding, bruising, clotting discussed Nutritional guidance given: to avoid greens today and to have a serving of foods that raise the INR Dose: increase today's dose to 10mg (5mg) and increase tomorrow's dose to 7.5mg (5mg) then usual dose of 7.5mg, then retest F/U INR Date: 05/27/25 Patient verbalizing understanding of instructions given. T/C to provider Stella Lemus Pa-C. Spoke to Thu and reported critical INR with dosing plan and next retest date. 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 Illness/Depression: No Coding Level of Care Code Est Patient Level 2 Diagnoses Current use of anticoagulant therapy Z79.01 Time Spent (min) 25 Comment critical value, education, MD notified Results AMB INR Fingerstick AMB INR Fingerstick 1.6 Last Edit by Deepika Payne RN on 05/24/25 10:08 interface delay Assessment & Plan Assessment & Plan (1) Current use of anticoagulant therapy: Code(s): Z79.01 - residential (current) use of anticoagulants Category: Medical
--- OUTSIDE RECORDS SUMMARY | 2025-05-24 10:55 | XMS_ITS | Clinical Summary ---
Author Organization [facility] Address [address] [place] [phone] Phone Care Team Providers Care Licensed Mortgage Loan Officer Name Role Phone Stella Lmeus Primary Care Provider Allergies Active Allergy Reactions [...] chronic kidney disease 07/25/2021 Renal osteodystrophy 07/25/2021 Immunizations Immunization Administration Dates Next Due H1N1 [...] Visit [facility] [address] [phone] Juliann Byrd ARNP [address] [phone] Health Maintenance Due Date Last Done Comments Hepatitis B Vaccine (1 of 3 - Risk 3-dose series) 2003 Influenza Vaccine (#1) 2025 , 07/23/2015, 07/13/2015, Additional history exists Pneumococcal Vaccine: 50+ Years Completed 02/17/2015, 07/06/2010, 09/22/2007 Pneumococcal Vaccine: Peds ( 0 to 5 Years) and At-Risk Patients (6 to 49 Years) Discontinued 02/17/2015, 07/06/2010, 09/22/2007 Insurance [facility] Medicare [facility] Medicare Care Teams Licensed Mortgage Loan Officer Relationship Specialty Start Date End Date Stella Lemus [address] [place] [address] PCP - General 08/05/23
--- OUTSIDE RECORDS SUMMARY | 2025-05-24 10:56 | XMS_ITS | Clinical Summary ---
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/01/2023 Factor V Leiden ([facility] V24) 12/01/2023 ARGENIS (obstructive sleep apnea) 12/01/2023 Seizures ([facility] V24, [facility] V28) 12/01/2023 Allergic rhinitis 07/21/2019 Autoimmune hepatitis ([facility] V24, [facility] V28) 07/21/2019 Overview (12/01/2023): 2011 BPH (benign prostatic hyperplasia) 07/21/2019 CAD (coronary artery disease) 07/21/2019 Overview (12/01/2023): CABG Carotid artery stenosis 07/21/2019 Overview (12/01/2023): Bilateral Cataract 07/21/2019 Chronic venous insufficiency 07/21/2019 Hyperlipidemia 07/21/2019 Hypertension 07/21/2019 Interstitial lung disease ([facility] V24, [facility] V28) 07/21/2019 Nephrolithiasis 07/21/2019 Type 2 diabetes mellitus ([facility] V24, [facility] V 28) 07/21/2019 DM (diabetes mellitus), type 2 with peripheral vascular complications ([facility] V24, [facility] V28) 07/21/2019 DM (diabetes mellitus), type 2 with renal complications ([facility] V24, [facility] V28) 07/21/2019 Type 2 diabetes mellitus wit h cataract ([facility] V24, [facility] V28) 07/21/2019 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 Aneurysm [...] Date Comments Factor V Leiden ([facility] V24) DX :Factor V Leiden (HCC) Seizures ([facility] V24, [facility] V28) DX:Seizures (HCC) DVT (deep venous thrombosis) ([facility] V24, [facility] V28) DX:DVT (deep venous thrombos is) (HCC) 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, [facility]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 (HCC) Aortic valve replaced DX:Aortic valve replaced ARGENIS (obstructive sleep apnea) DX :ARGENIS (obstructive sleep apnea) BPH (benign prostatic hyperplasia) 07/21/2019 DX:BPH (benign prostatic hyperplasia) CKD (chronic kidney disease) stage 3, GFR 30-59 ml/min ([facility] V24, [facility] V28) DX:CKD (chronic kidney disea se) stage 3, GFR 30-59 ml/min ([facility]) Hyperlipidemia 07/21/2019 DX:Hyperlipidemi a Hypertension 07/21/2019 DX:Hypertension CAD (coronary artery disease) 07/21/2019 DX :CAD (coronary artery disease); COMMENT: CABG DM (diabetes mellitus), type 2 with renal complications ([facility] V24, [facility] V28) 07/21/2019 DX:DM (diabetes mellitus), t ype 2 with renal complications (HCC) Nephrolithiasis 07/21/2019 DX:Nephrolithias is Autoimmune hepatitis ([facility] V24, [facility] V28) 07/21/2019 DX:Autoimmune hepatitis (HCC ) Interstitial lung disease ([facility]/HCC V24, [facility] V28) 07/21/2019 DX:Interstitial lung disease (HCC) Allergic rhinitis 07/21/2019 DX:Allergic rh initis Cataract 07/21/2019 DX:Cataract Type 2 diabetes mellitus wit h cataract ([facility] V24, [facility] V28) 07/21/2019 DX:Type 2 diabetes mellitus with cataract ([facility]) Chronic venous insufficiency 07/21/2019 DX: Chronic venous insufficiency DM (diabetes mellitus), type 2 with peripheral vascular complications ([facility] V24, [facility] V28) 07/21/2019 DX:DM (diabetes mellitus), type 2 with peripheral vascular complications ([facility]) Carotid artery stenosis 07/21/2019 DX:Carot id artery stenosis; COMMENT: Bilateral History of DVT (deep vein thrombosis) 08/21/2018 DX:History of DVT (deep vein thrombosis) 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:Post -thrombotic syndrome Aneurysm of ascending aorta ([facility] V24) 07/28/2017 DX:Aneurysm of ascending aor ta ([facility]) Family History Medical History Relation Name [...] 10:00 AM EDT Office Visit Gastroenterology - [place] [address] [place] [address] Henry Morris MD [address] [place] [phone] Health Maintenance Due Date Last Done Comments [...] EDT Routine general medical examination at a [facility] facility Diabetic complication ([facility] V24, [facility] V28) Hyperlipemia COMPREHENSIVE METABOLIC PANEL Routine 02/23/2025 8:50 AM EDT Routine general medical examination at a [facility] facility Diabetic complication ([facility] V24, [facility] V28) Hyperlipemia CBC AND DIFFERENTIAL Routine 02/23/2025 8:50 AM EDT Routine general medical examination at a [facility] facility Diabetic complication ([facility] V24, [facility] V28) Hyperlipemia MICROALBUMIN CREATININE URINE RATIO Routine 01/25/2025 3:12 PM EDT Chronic kidney disease (CKD) stage G3b/A1, moderately decreased glomerular filtration rate (GFR) between 30-44 mL/min/1.73 square meter and albuminuria creatinine ratio les* ([facility] V24, [facility] V28) Renal osteodystrophy from Last 3 Months or Most Recently Relevant to Health Maintenance Results * (ABNORMAL) CBC auto differential (02/23/2025 8:50 AM EDT) WBC 6.8 4.8 - 10.8 K/mcL LAB HEMETOLOGY METHOD 02/23/2025 10:17 AM EDT [facility] RBC 4.70 4.50 - 5.50 M/mcL LAB HEMETOLOGY METHOD 02/23/2025 10:17 AM EDT [facility] Hemoglobin 14.4 13.5 - 17.5 g/dL LAB HEMETOLOGY METHOD 02/23/2025 10:17 AM EDT [facility] Hematocrit 46.2 42.0 - 54.0 % LAB HEMETOLOGY METHOD 02/23/2025 10:17 AM [facility] MCV 98.9(H) 79.0 - 98.0 FL LAB HEMETOLOGY METHOD 02/23/2025 10:17 AM [facility] MCH 30.8 27.0 - 32.0 pcg LAB HEMETOLOGY METHOD 02/23/2025 10:17 AM [facility] MCHC 31.2(L) 32.0 - 37.0 g/dL LAB HEMETOLOGY METHOD 02/23/2025 10:17 AM [facility] RDW 15.1(H) 11.0 - 15.0 % LAB HEMETOLOGY METHOD 02/23/2025 10:17 AM [facility] Platelets 173 130 - 400 K/mcL LAB HEMETOLOGY METHOD 02/23/2025 10:17 AM [facility] MPV 10.9 7.0 - 11.0 FL LAB HEMETOLOGY METHOD 02/23/2025 10:17 AM [facility] NRBC 0.0 <1.0 % LAB HEMETOLOGY METHOD 02/23/2025 10:17 AM [facility] NRBC Absolute 0.00 <0.10 K/mcL LAB HEMETOLOGY METHOD 02/23/2025 10:17 AM [facility] Neutrophils Relative 60.1 % LAB HEMETOLOGY METHOD 02/23/2025 10:17 AM [facility] Lymphocytes Relative 27.5 % LAB HEMETOLOGY METHOD 02/23/2025 10:17 AM [facility] Monocytes Relative 7.6 % LAB HEMETOLOGY METHOD 02/23/2025 10:17 AM [facility] Eosinophils Relative 3.8 % LAB HEMETOLOGY METHOD 02/23/2025 10:17 AM [facility] Basophils Relative 0.6 % LAB HEMETOLOGY METHOD 02/23/2025 10:17 AM EDT [facility] Immature Granulocytes Relative 0.4 % LAB HEMETOLOGY METHOD 02/23/2025 10:17 AM EDT [facility] Neutrophils Absolute 4.09 1.50 - 7.00 K/mcL LAB HEMETOLOGY METHOD 02/23/2025 10:17 AM EDT [facility] Lymphocytes Absolute 1.87 1.00 - 5.00 K/mcL LAB HEMETOLOGY METHOD 02/23/2025 10:17 AM EDT [facility] Monocytes Absolute 0.52 0.20 - 1.00 K/mcL LAB HEMETOLOGY METHOD 02/23/2025 10:17 AM EDT [facility] Eosinophils Absolute 0.26 0.00 - 0.50 K/mcL LAB HEMETOLOGY METHOD 02/23/2025 10:17 AM EDT [facility] Basophils Absolute 0.04 0.00 - 0.20 K/mcL LAB HEMETOLOGY METHOD 02/23/2025 10:17 AM EDT [facility] Immature Granulocytes Absolute 0.03 0.00 - 0.03 K/mcL LAB HEMETOLOGY METHOD 02/23/2025 10:17 AM EDT [facility] Blood Venous blood specimen / Unknown Venipuncture / Unknown 02/23/2025 8:50 AM EDT 02/23/2025 9:55 AM EDT us Stella MALDONADO LAB BLOOD ORDERABLES Final Resul t [facility] [address] [place] [address], * (ABNORMAL) Comprehensive metabolic panel (02/23/2025 8:50 AM EDT) Pathologist [facility] Sodium 141 133 - 145 mmol/L LAB CHEMISTRY METHOD 02/23/2025 10:54 AM [facility] Potassium 4.5 3.5 - 5.5 mmol/L LAB CHEMISTRY METHOD 02/23/2025 10:54 AM [facility] Chloride 108 96 - 110 mmol/L LAB CHEMISTRY METHOD 02/23/2025 10:54 AM [facility] CO2 29 21 - 32 mmol/L LAB CHEMISTRY METHOD 02/23/2025 10:54 AM [facility] Anion Gap 4 3 - 11 LAB CHEMISTRY METHOD 02/23/2025 10:54 AM [facility] Glucose 106(H) 70 - 100 mg/dL LAB CHEMISTRY METHOD 02/23/2025 10:54 AM [facility] BUN 32(H) 5 - 25 mg/dL LAB CHEMISTRY METHOD 02/23/2025 10:54 AM [facility] Creatinine 1.71(H) 0.70 - 1.30 mg/dL LAB CHEMISTRY METHOD 02/23/2025 10:54 AM [facility] eGFR 39(L) >=60 mL/min/1. 73m2 LAB CHEMISTRY METHOD 02/23/2025 10:54 AM [facility] Comment:Calculation based on the Chronic Kidney Disease Epidemiology Collaboration (CKD-EPI) equation refit without adjustment for race. BUN/Creatinine Ratio 18.7 LAB CHEMISTRY METHOD 02/23/2025 10:54 AM [facility] Calcium 9.7 8.5 - 10.5 mg/dL LAB CHEMISTRY METHOD 02/23/2025 10:54 AM [facility] AST (SGOT) 30 10 - 42 unit/L LAB CHEMISTRY METHOD 02/23/2025 10:54 AM [facility] ALT (SGPT) 20 10 - 60 unit/L LAB CHEMISTRY METHOD 02/23/2025 10:54 AM [facility] Alkaline Phosphatase 69 42 - 121 unit/L LAB CHEMISTRY METHOD 02/23/2025 10:54 AM EDT [facility] Total Protein 7.3 6.0 - 8.0 g/dL LAB CHEMISTRY METHOD 02/23/2025 10:54 AM EDT [facility] Albumin 3.4 3.2 - 5.0 g/dL LAB CHEMISTRY METHOD 02/23/2025 10:54 AM EDT [facility] Total Bilirubin 0.8 0.0 - 1.4 mg/dL LAB CHEMISTRY METHOD 02/23/2025 10:54 AM EDT [facility] Blood Venous blood specimen / Unknown Venipuncture / Unknown 02/23/2025 8:50 AM EDT 02/23/2025 10:54 AM EDT us Stella MALDONADO LAB BLOOD ORDERABLES Final Resul t [facility] [address] [place] [address], [place] [phone] * (ABNORMAL) Microalbumin creatinine urine ratio (01/25/2025 3:12 PM EDT) Creatinine, Urine 105.0 mg/dL LAB CHEMISTRY METHOD 01/25/2025 8:46 PM EDT [facility] Microalb, Ur 868.0(H) 0.0 - 29.0 mg/L LAB CHEMISTRY METHOD 01/25/2025 8:46 PM EDT [facility] Microalb/Crea t Ratio 827(H) <30 mg/g creat LAB CHEMISTRY METHOD 01/25/2025 8:46 PM EDT [facility] Urine Urine specimen obtained by clean catch procedure / Unknown Non-blood Collection / Unknown 01/25/2025 3:12 PM EDT 01/25/2025 4:11 PM EDT us Joaquin Guaman MD LAB URINE ORDERABLES Final Re sult [facility] [address] [place] [address], from Last 3 Months or Most Recently Relevant to Health Maintenance Insurance MEDICARE [facility] Advance Directives Documents on File Type Date Recorded Patient Division Operations Specialist Expl anation Health Care Decision (hx) 01/06/2012 AD PEREZ DIRECTIVE Health Care Decision (hx) 01/06/2012 AD PEREZ DIRECTIVE Health Care Decision (hx) 01/06/2012 AD PEREZ DIRECTIVE Care Teams Signaling Project Engineer Relationship Specialty Start Date End Date Espinoza Infante MD [address] [place] [phone] PCP - General Internal Medicine 10/18/24
--- OUTSIDE RECORDS SUMMARY | 2025-05-24 10:56 | XMS_ITS | Encounter Summary ---
Author Organization [facility] Address [address] [place] [phone] Phone Care Team Providers Care Hide Worker Name Role Phone Osito Infante MD Primary Care Provider Encounter Details Date Type Department Care Team (Late st Contact Info) Description 11/29/2022 Procedure Pass [facility] [address] [place] [address] Social History Tobacco Use Types Packs/Day Years Used Date Smoking Tobacco: Former Cigarettes Q uit: 1968 Smokeless Tobacco: Never Alcohol Use Standard Drinks/Week Comments Not Asked 0 (1 standard drink = 0.6 oz pur e alcohol) rare Sex and Gender Information Value Date Recorded Sex Assigned at Not on file Legal Sex Male 11:01 AM EST Gender Identity Not on file Sexual Orientation Not on file documented as of this encounter Plan of Treatment Not on file documented as of this encounter Visit Diagnoses Not on filedocumented in this encounter Care Teams Hide Worker Relationship Specialty Start Date End Date Osito Infante MD [address] [place] [phone] PCP - General Internal Medicine 11/29/22 documented as of this encounter Additional Source Comments The information contained in this document represents components of the legal health record. It is not the complete legal health record.[facility]
--- OUTSIDE RECORDS SUMMARY | 2025-05-24 10:56 | XMS_ITS | Encounter Summary ---
Author Organization [facility] Address [address] [place] [phone] Phone Care Team Providers Care Director Of Therapy Services Name Role Phone Osito Infante MD Primary Care Provider Encounter Details Date Type Department Care Team (Late st Contact Info) Description 01/09/2023 Procedure Pass [facility] [address] [place] [address] Social History Tobacco Use Types Packs/Day Years Used Date Smoking Tobacco: Former Cigarettes Q uit: 1968 Smokeless Tobacco: Never Alcohol Use Standard Drinks/Week Comments Not Asked 0 (1 standard drink = 0.6 oz pur e alcohol) rare Intimate Partner Violence Answer Date R ecorded [...] on filedocumented in this encounter Care Teams Director Of Therapy Services Relationship Specialty Start Date End Date Osito Infante MD [address] [place] [phone] PCP - General Internal Medicine 11/29/22 documented as of this encounter Additional Source Comments The information contained in this document represents components of the legal health record. It is not the complete legal health record.[facility]
--- OUTSIDE RECORDS SUMMARY | 2025-05-24 10:56 | XMS_ITS | Patient Health Record ---
Author Organization [facility] [address] Address [address] [place] [address] Care Team Providers Care Bi Analyst Name Role Phone CHRISTINA WALTERS Unavailable [phone] JUMANA INFANTE Unavailable [phone] Allergies Allergen (clinical drug ingredient) Drug/Non Drug Allergy documented on EMR Reaction Allergy Type Onset Date Status morphine morphine (uncoded) Unknown Allergy A ctive enoxaparin Lovenox BLEEDS Drug Allergy Active Results Component Value Reference Range Notes COMPREHENSIVE METABOLIC PANE L Reviewed date:02/24/2025 08:00:24 [...] date:05/25/2024 12:51:27 PM Interpretation: Performing Lab: Notes/Report: Analytics Leader - Dora Marin MD [address] [place] [address] [employer], a member of [facility] Original Ordering Provider: CHRISTINA WALTERS PA-C (EMERY) [...] Original Ordering Provider: CHRISTINA WALTERS PA-C (EMERY) [employer] [employer], [place] [address] Analytics Leader - Dora Marin MD GLUCOSE [phone] [...] Original Ordering Provider: CHRISTINA WALTERS PA-C (EMERY) [employer] [employer], a member of [address] [address] Analytics Leader - Dora Marin MD GLYCOHEMOGLOBIN PROFILE Reviewed date:05/25/2024 12:53:08 PM Interpretation: Performing Lab: Notes/Report: Original Ordering Provider: CHRISTINA WALTERS PA-C (EMERY) [address] [employer], a member of [address] [address] Analytics Leader - Dora Marin MD GLYCATED HEMOGLOBIN A1C 6.4 <6.5 % ESTIMATED AVERAGE GLUCOSE 137 Reason For Referral No Information Medications Medication SIG (Take, Route, Frequency, Duration) Notes Start Date End Date Status OneTouch Ultra - USE TO TEST DAILY; Duration: 90 Active Nitrofurantoin Monohyd Macro 100 MG Oral; Duration: 90 Days Active Fish Oil 1000 MG 1 capsule [...] DAILY; Duration: 0 Active OneTouch Delica Plus [id number] - USE DIRECTED TO TEST BLOOD GLUCOSE ONCE EVERY DAY; Duration: 90 Active azaTHIOprine 50 MG as directed Orally three time daily Active Lancets 30G - one lancet in vitro twice daily DX E11.9; Duration: 90 days 07/04/2023 Active Calcium + D 500-1000-40 MG-UNT-MCG Orally Active Gabapentin 600 MG TAKE 1 TABLET TWICE A DAY; Duration: 90 days Active Tamsulosin HCl 0.4 MG 2 capsules Orally Once a day; Duration: 90 days Active Simvastatin 40 mg [...] Notes Problem Anemia in chronic kidney disease (226783100) 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) Active confirmed Problem Diabetic renal disease (310245588) Type 2 diabetes mellitus with diabetic chronic kidney disease (E11.22) Active confirmed Problem Hyperglycemia due to type 2 diabetes mellitus (870068703106298) Type 2 diabetes mellitus with hyperglycemia (E11.65) Active confirmed Problem Disorder due to type 2 diabetes mellitus (343626075) Type 2 diabetes mellitus with unspecified complications (E11.8) Active confirmed Problem Type II diabetes mellitus without complication (977253270) Type 2 diabetes mellitus without complications (E11.9) Active confirmed Problem Vitamin D deficiency (33861892) Vitamin D deficiency, unspecified (E55.9) Active confirmed Problem 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 Problem Hyperlipidemia (68923868) Hyperlipidemia, unspecified (E78.5) Active confirmed Problem Essential hypertension (48639127) Essential (primary) hypertension (I10) Active confirmed Problem Cerebral infarction (512040635) Cerebral infarction, unspecified (I63.9) Active confirmed Problem Autoimmune hepatitis (674641407) Autoimmune hepatitis (K75.4) Active confirmed Problem Chronic kidney disease stage 3 (disorder) (493464958) Chronic kidney disease, stage 3 (moderate) (N18.3) Active confirmed Problem Long-term current us e of anticoagulant (301027339) technician terminal and repeater (current) use of anticoagulants (Z79.01) Active confirmed Problem Benign prostatic hypertrophy without outflow obstruction (038348298) Benign prostatic hyperplasia without lower urinary tract symptoms (N40.0) Active confirmed Problem Backache (186057764) Back pain, unspecified back location, unspecified back pain laterality, unspecified chronicity (M54.9) Active confirmed Problem Adult health examination (717072084) Adult general medical exam (Z00.00) Active confirmed Problem Hypothyroidism (01652454) Hypothyroidism, unspecified type (E03.9) Active confirmed Problem Annual health maintenance examination (38919261) Annual physical exam (Z00.00) Active confirmed Problem Vitamin D deficiency (81777694) Vitamin D deficiency (E55.9) Active confirmed Problem Use of anticoagulation (799802266) Chronic anticoagulation (Z79.01) Active confirmed Problem Obesity (427980867) Obesity (BMI 30-39.9) (E66.9) Active confirmed Problem Type II diabetes mellitus without complication (402316486) Type 2 diabetes mellitus without complication, unspecified whether mcfp insulin use (E11.9) Active confirmed Problem Chronic kidney disease stage 3B (disorder) (776879167) Chronic kidney disease, stage 3b (N18.32) Active confirmed Problem Obstructive sleep apnea (32698540) Obstructive sleep apnea (G47.33) Active confirmed Problem Screening for malignant neoplasm of prostate (144674476) Prostate cancer screening (Z12.5) Active confirmed Problem Vitamin B>12< deficiency anaemia (08539548) Anemia due to vitamin B12 deficiency, 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) Active confirmed Problem Body mass index 30.0 0 to 34.99 (157497518657303) BMI 34.0-34.9,adult (Z68.34) Active confirmed Problem Degeneration of lumbar intervertebral disc (86996687) Degenerative disc disease, lumbar (M51.36) Active confirmed Problem Benign prostatic hypertrophy without outflow obstruction (640365853) BPH loc w/o ur obs/LUTS (N40.0) Active confirmed Problem Elevated level of transaminase and lactic acid dehydrogenase (finding) (673643286) Transaminitis (R74.01) Active confirmed Problem Bilateral low ba ck pain, unspecified chronicity, unspecified whether sciatica present (M54.50) Active confirmed Problem Aortic valve disease (2783151) Aortic valve disease (I35.9) Active confirmed Problem History of heart valve repair with prosthesis (344021769334276) Aortic valve replaced (Z95.2) Active confirmed Problem Diabetes mellitus type 2 in nonobese (719320301) Diabetes mellitus type 2 in nonobese (E11.9) Active confirmed Problem Obstructive sleep apnea syndrome (51268747) ARGENIS on CPAP (G47.33) Active confirmed Vital Signs Heart Rate 105 /min 02/24/2025 Oximetry 99 % 02/24/2025 Blood pressure diastolic 68 mm Hg 02/24/2025 Height 66 in 02/24/2025 Blood pressure systolic 122 mm Hg 02/24/2025 Weight 204 lbs 02/24/2025 BMI 32.92 kg/m2 02/24/2025 Encounters Encounter Location Date Provider Diagnosis [facility] [address] [place] [address] 05/31/2024 CHRISTINA WALTERS Type 2 diabetes phuong [...] BMI 34.0-34.9,adult Z68.[address] [facility] [address] [place] [address] 08/17/2024 CHRISTINA WALTERS Type 2 diabetes phuong [...] (BMI 30-39.9) E66.9 and BMI 34.0-34.9,adult Z68.34 [facility] [address] [place] [address] 11/18/2024 CHRISTINA WALTERS Type 2 diabetes phuong [...] (BMI 30-39.9) E66.9 and BMI 34.0-34.9,adult Z68.34 [facility] [address] [place] [address] 02/24/2025 CHRISTINA WALTERS Type 2 diabetes phuong [...] examination Z01.[address] [facility] [address] [place] [address] 05/24/2025 CHRISTINA SELENA [facility] [address] [place] [address] 05/31/2024 CHRISTINA SELENA [facility] [address] [place] [address] 06/03/2024 CHRISTINA SELENA [facility] [address] [place] [address] 06/21/2024 TALAL INFANTE [facility] [address] [place] [address] 06/28/2024 CHRISTINA SELENA [facility] [address] [place] [address] 07/28/2024 CHRISTINA SELENA [facility] [address] [place] [address] 07/29/2024 CHRISTINA SELENA [facility] [address] [place] [address] 08/12/2024 CHRISTINA SELENA [facility] [address] [place] [address] 08/16/2024 CHRISTINA SELENA [facility] [address] [place] [address] 08/16/2024 CHRISTINA SELENA [facility] [address] [place] [address] 08/23/2024 CHRISTINA SELENA [facility] [address] [place] [address] 08/24/2024 TALAL INFANTE [facility] [address] [place] [address] 08/27/2024 TALAL INFANTE [facility] [address] [place] [address] 11/05/2024 CHIRSTINA SELENA [facility] [address] [place] [address] 11/09/2024 TALAL INFANTE [facility] [address] [place] [address] 12/06/2024 CHRISTINA SELENA [facility] [address] [place] [address] 2025 JUMANA INFANTE [facility] [address] [place] [address] 01/24/2025 CHRISTINA WALTERS [facility] [address] [address] 02/22/2025 CHRISTINA WALTERS Adult general medica l exam Z00.00 ; Type 2 diabetes mellitus with unspecified complications E11.8 and Hyperlipidemia, unspecified E78.5 [facility] [address] [address] 03/18/2025 CHRISTINA WALTERS [facility] [address] [place] [address] 04/27/2025 CHRISTINA WALTERS Type 2 diabetes phuong itus without complications E11.9 ; Hyperlipidemia, unspecified E78.5 ; Benign prostatic hyperplasia without lower urinary tract symptoms N40.0 ; Elevated LFTs R79.89 and Anemia in chronic kidney disease D63.[address] [facility] [address] [place] [address] 04/27/2025 CHRISTINA WALETRS [facility] [address] [place] [address] 05/04/2025 CHRISTINA WALTERS Assessments Encounter Date Diagnosis (ICD [...] Dictation was accomplished with the use of Leadjini voice recognition software, prone to medical misidentifications [...] Dictation was accomplished with the use of [employer]on voice recognition software, prone to medical misidentifications [...] Dictation was accomplished with the use of [employer] voice recognition software, prone to medical misidentifications [...] with < 0.2% episodes of apnea. Sees [facility] sleep medicine. Overnight Pulse oximeter ordered. [...] Dictation was accomplished with the use of [employer] voice recognition software, prone to medical misidentifications [...] with < 0.2% episodes of apnea. Sees [facility] sleep medicine. Overnight Pulse oximeter ordered. [...] Dictation was accomplished with the use of Leadj[employer] voice recognition software, prone to medical misidentifications [...] log exercise and discussed fitness Apps like CNG-One which can help keep log off calories [...] Dictation was accomplished with the use of Lead[employer] voice recognition software, prone to medical misidentifications [...] log exercise and discussed fitness Apps like C[employer]-One which can help keep log off calories [...] Dictation was accomplished with the use of [employer] voice recognition software, prone to medical misidentifications and grammatical errors. This is unintentional and the practitioner does try to identify and correct these, but some could still be present. Please do not hesitate to contact practitioner for clarification. All questions answered to patients satisfaction. Patient verbalized understanding of diagnosis and treatments explained. To call sooner prior to next visit it any questions/concerns arise. 04/27/2025 Type 2 diabetes mellitus without complications (ICD-10 - E11.9) 04/27/2025 Hyperlipidemia, unspecified (ICD-10 - E78.5) 02/24/2025 Chronic anticoagulation (ICD-10 - Z79.01) # [...] log exercise and discussed fitness Apps like CNG-One which can help keep log off calories [...] Dictation was accomplished with the use of Leadj[employer] voice recognition software, prone to medical misidentifications [...] with < 0.2% episodes of apnea. Sees [facility] sleep medicine. Overnight Pulse oximeter ordered. [...] Dictation was accomplished with the use of [employer] voice recognition software, prone to medical misidentifications [...] Dictation was accomplished with the use of [employer] voice recognition software, prone to medical misidentifications [...] Dictation was accomplished with the use of [employer] voice recognition software, prone to medical misidentifications [...] Dictation was accomplished with the use of [employer] voice recognition software, prone to medical misidentifications [...] Dictation was accomplished with the use of [employer] voice recognition software, prone to medical misidentifications [...] with < 0.2% episodes of apnea. Sees [facility] sleep medicine. Overnight Pulse oximeter ordered. [...] Dictation was accomplished with the use of [employer] voice recognition software, prone to medical misidentifications and grammatical errors. This is unintentional and the practitioner does try to identify and correct these, but some could still be present. Please do not hesitate to contact practitioner for clarification. All questions answered to patients satisfaction. Patient verbalized understanding of diagnosis and treatments explained. To call sooner prior to next visit it any questions/concerns arise. 04/27/2025 Benign prostatic hyperplasia without lower urinary tract symptoms (ICD-10 - N40.0) 02/24/2025 Bilateral low back pain, unspecified chronicity, [...] log exercise and discussed fitness Apps like CNG-One which can help keep log off calories [...] Dictation was accomplished with the use of Leadjini voice recognition software, prone to medical misidentifications [...] log exercise and discussed fitness Apps like C[employer]-One which can help keep log off calories [...] Dictation was accomplished with the use of [employer] voice recognition software, prone to medical misidentifications and grammatical errors. This is unintentional and the practitioner does try to identify and correct these, but some could still be present. Please do not hesitate to contact practitioner for clarification. All questions answered to patients satisfaction. Patient verbalized understanding of diagnosis and treatments explained. To call sooner prior to next visit it any questions/concerns arise. 04/27/2025 Elevated LFTs (ICD-10 - R79.89) 08/17/2024 Hyperlipidemia, unspecified (ICD-10 - E78.5) # [...] Dictation was accomplished with the use of Leadjini voice recognition software, prone to medical misidentifications [...] with < 0.2% episodes of apnea. Sees [facility] sleep medicine. Overnight Pulse oximeter ordered. [...] Guaman Case discussed with collaborating physician Alexus Inafnte who reviewed the assessment and plan. Chart, medications, labs, vital signs reviewed. Dictation was accomplished with the use of Leadj[employer] voice recognition software, prone to medical misidentifications [...] Dictation was accomplished with the use of [employer] voice recognition software, prone to medical misidentifications [...] Dictation was accomplished with the use of [employer] voice recognition software, prone to medical misidentifications [...] Dictation was accomplished with the use of [employer] voice recognition software, prone to medical misidentifications [...] log exercise and discussed fitness Apps like CNG-One which can help keep log off calories [...] Dictation was accomplished with the use of [employer] voice recognition software, prone to medical misidentifications and grammatical errors. This is unintentional and the practitioner does try to identify and correct these, but some could still be present. Please do not hesitate to contact practitioner for clarification. All questions answered to patients satisfaction. Patient verbalized understanding of diagnosis and treatments explained. To call sooner prior to next visit it any questions/concerns arise. 04/27/2025 Anemia in chronic kidney disease (ICD-10 - D63.1) 11/18/2024 Anemia due to vitamin B12 deficiency, unspecified B12 deficiency type (ICD-10 - D51.9) # Depression. Pt PHQ9 8. Discussed SSRI therapy, pt reluctant due to being on too many meds . # Bilateral low back pain: Chronic problem, but overall stable # ARGENIS on CPAP: Recently obtained new CPAP, esteban shows sleeping average 7.5 hours with < 0.2% episodes of apnea. Sees [facility] sleep medicine. Overnight Pulse oximeter ordered. [...] Dictation was accomplished with the use of [employer] voice recognition software, prone to medical misidentifications [...] with < 0.2% episodes of apnea. Sees [facility] sleep medicine. Overnight Pulse oximeter ordered. [...] Dictation was accomplished with the use of [employer] voice recognition software, prone to medical misidentifications [...] log exercise and discussed fitness Apps like CNG-One which can help keep log off calories [...] Dictation was accomplished with the use of [employer] voice recognition software, prone to medical misidentifications [...] Dictation was accomplished with the use of [employer] voice recognition software, prone to medical misidentifications [...] Dictation was accomplished with the use of [employer] voice recognition software, prone to medical misidentifications [...] Baseline creaitnine 1.65. Followed by Dr. Deniz Kbaa discussed with collaborating physician Doyle Infante who reviewed the assessment and plan. Chart, medications, labs, vital signs reviewed. Dictation was accomplished with the use of [employer] voice recognition software, prone to medical misidentifications [...] with < 0.2% episodes of apnea. Sees [facility] sleep medicine. Overnight Pulse oximeter ordered. [...] Dictation was accomplished with the use of [employer] voice recognition software, prone to medical misidentifications [...] Dictation was accomplished with the use of [employer] voice recognition software, prone to medical misidentifications [...] log exercise and discussed fitness Apps like CNG-One which can help keep log off calories [...] Dictation was accomplished with the use of [employer] voice recognition software, prone to medical misidentifications [...] with < 0.2% episodes of apnea. Sees [facility] sleep medicine. Overnight Pulse oximeter ordered. [...] Dictation was accomplished with the use of Leadj[employer] voice recognition software, prone to medical misidentifications [...] log exercise and discussed fitness Apps like CNG-One which can help keep log off calories [...] Dictation was accomplished with the use of Leadjini voice recognition software, prone to medical misidentifications [...] Dictation was accomplished with the use of [employer] voice recognition software, prone to medical misidentifications [...] Dictation was accomplished with the use of [employer] voice recognition software, prone to medical misidentifications [...] with < 0.2% episodes of apnea. Sees [facility] sleep medicine. Overnight Pulse oximeter ordered. [...] Dictation was accomplished with the use of [employer] voice recognition software, prone to medical misidentifications [...] Dictation was accomplished with the use of Leadjini voice recognition software, prone to medical misidentifications [...] Dictation was accomplished with the use of [employer] voice recognition software, prone to medical misidentifications [...] log exercise and discussed fitness Apps like CNG-One which can help keep log off calories [...] Dictation was accomplished with the use of [employer] voice recognition software, prone to medical misidentifications [...] with < 0.2% episodes of apnea. Sees [facility] sleep medicine. Overnight Pulse oximeter ordered. [...] Dictation was accomplished with the use of [employer] voice recognition software, prone to medical misidentifications [...] log exercise and discussed fitness Apps like CNG-One which can help keep log off calories [...] Dictation was accomplished with the use of [employer] voice recognition software, prone to medical misidentifications [...] Dictation was accomplished with the use of [employer] voice recognition software, prone to medical misidentifications [...] Dictation was accomplished with the use of [employer] voice recognition software, prone to medical misidentifications [...] Dictation was accomplished with the use of [employer] voice recognition software, prone to medical misidentifications [...] log exercise and discussed fitness Apps like CNG-One which can help keep log off calories [...] Dictation was accomplished with the use of [employer] voice recognition software, prone to medical misidentifications [...] log exercise and discussed fitness Apps like C[employer]-One which can help keep log off calories [...] Dictation was accomplished with the use of [employer] voice recognition software, prone to medical misidentifications [...] log exercise and discussed fitness Apps like C[employer]-One which can help keep log off calories [...] Dictation was accomplished with the use of [employer] voice recognition software, prone to medical misidentifications [...] log exercise and discussed fitness Apps like C[employer]-One which can help keep log off calories [...] Dictation was accomplished with the use of [employer] voice recognition software, prone to medical misidentifications [...] RT 05/15/2023 PT/INR 04/27/2019 LIPID PANEL, STANDARD 04/27/2025 LIPID PANEL, STANDARD 11/14/2023 LIPID PANEL, STANDARD 04/06/2024 HEPATITIS PANEL, ACUTE W/REFLEX TO CONFI RMATION 11/21/2021 COMPREHENSIVE METABOLIC PANEL 04/06/2024 COMPREHENSIVE METABOLIC PANEL 02/19/2024 COMPREHENSIVE METABOLIC PANEL 11/14/2023 COMPREHENSIVE METABOLIC PANEL 04/27/2025 COMPREHENSIVE METABOLIC PANEL 02/22/2025 CBC (INCLUDES DIFF/PLT) 02/22/2025 CBC (INCLUDES DIFF/PLT) 04/27/2025 CBC (INCLUDES DIFF/PLT) 11/14/2023 CBC (INCLUDES DIFF/PLT) 02/19/2024 CBC (INCLUDES DIFF/PLT) 04/06/2024 URINALYSIS, COMPLETE 11/14/2023 HEMOGLOBIN A1c 11/14/2023 HEMOGLOBIN A1c 02/19/2024 VITAMIN B12 11/14/2023 PSA (FREE AND TOTAL) 11/14/2023 PSA (FREE AND TOTAL) 04/27/2025 VITAMIN D,25-OH,TOTAL,IA 11/14/2023 COMPLETE URINALYSIS 10/15/2021 COMPLETE URINALYSIS 05/21/2021 Lumbar Spine 2 or 3 Views 03/02/2024 Hemoglobin [id number] 04/27/2025 Future Test Test Name Order Date CBC (COMPLETE BLOOD COUNT) 05/05/2021 COMPREHENSIVE METABOLIC PANEL 05/05/2021 HEMOGLOBIN A1C 05/05/2021 COMPREHENSIVE METABOLIC PANEL 12/04/2022 HEMOGLOBIN A1C 12/04/2022 URINALYSIS W/REFLEX CULTURE 12/04/2022 Next Appt Details Provider Name:JUMANA INFANTE, 06/30/2025 10:30:00 AM, [address], [place], [address], Insurance Providers Payer Name Payer Address Payer Phone Subscriber Number Group Number Insured Name Patient Relationship to Insured Coverage Start Date Coverage End Date Medicare Part B J14 [address] [place] [id number] [phone] [id number] IRVIN SUAZO Self - patient is the insured [employer] [address] [place] [address] [id number] IRVIN SUAZO Self - patient is the [...]
== END 2025-05-24 11:32 | disposition home or self-care (01) ==
LOC: HO.ACS 09:47
PROVIDERS: PCP Physician Assistant Medical; Visit Provider Internal Medicine Medical Oncology
DX: Z79.01 Long term (current) use of anticoagulants (principal)

== ENCOUNTER → 2025-05-24 09:47 | Outpatient (BNVA) | payer MEDICARE, SELFPAY | PROVIDERS: PCP Physician Assistant Medical; Visit Provider Internal Medicine Medical Oncology | DX: Z51.81 Encounter for therapeutic drug level monitoring (principal); Z79.01 Long term (current) use of anticoagulants | CPT/HCPCS: 85610; 99211; 99212 ==

== ENCOUNTER 2025-05-27 14:29 | Outpatient (AMB) | payer MEDICARE, SELFPAY ==
--- NOTE | 2025-05-27 14:36 | MHC.OFFVISCO ---
Intake Intake Visit Reasons: Anticoagulation Allergies lovenox Allergy (Severe, Uncoded 05/27/25 14:31) bleeding morphine Allergy (Severe, Uncoded 05/27/25 14:31) Rash kepra Adverse Reaction (Severe, Uncoded 05/27/25 14:31) Drowsy Medication List - Last Reconciled 05/27/25 by Soo Ho RN amoxicillin 2,000 mg PO ONCE PRN azathioprine 150 mg PO DAILY calcium carbonate-vitamin D3 600 mg-10 mcg (400 unit) caps PO DAILY cholecalciferol (vitamin D3) 25 mcg PO DAILY finasteride 5 mg PO DAILY gabapentin 600 mg PO BID metoprolol tartrate 12.5 mg PO BID multivitamin 1 tab PO DAILY nitrofurantoin monohyd/m-cryst 100 mg caps PO omega 9-cmd-baw-fish oil 1,000 (120-180) mg (Fish Oil) 1 cap PO BID simvastatin 40 mg PO BEDTIME tamsulosin 0.8 mg PO DAILY triamcinolone acetonide 0.1% 1 appl topical DAILY PRN warfarin 2.5 mg See Protocol PO DAILY Nursing Note INR 2.4-? out of therapeutic range of 2.5-3.5 Medications and supplements reviewed Patient status: prev inr 1.6 on 05/24/25, Medications or supplements: no changes Diet: appetite fair Denies any signs and symptoms of bleeding or clotting or unusual bruising Bleeding, bruising, clotting discussed Nutritional guidance given: no greens for 2 days- eat reds to raise Dose: cont reg dosing- 5mg x 5, 7.5mg x 2 F/U INR Date : 05/31/25? Patient verbalizing understanding of instructions given. 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 Illness/Depression: No Coding Level of Care Code Est Patient Level 1 Diagnoses Current use of anticoagulant therapy Z79.01 Assessment & Plan Assessment & Plan (1) Current use of anticoagulant therapy: Code(s): Z79.01 - [facility] (current) use of anticoagulants Category: Medical
[2025-05-27 14:37] LABS: Prothrombin Time Whole Bld POC 28.4 sec (11.1-13.5); ~PT, ~INR - Anti Coag Clinic 2.4 (0.9-1.1)
--- OUTSIDE RECORDS SUMMARY | 2025-05-27 14:49 | XMS_ITS | Clinical Summary ---
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 [address] [address] Juliann Byrd ARNP [address] [phone] Health Maintenance Due Date Last Done Comments Hepatitis B Vaccine (1 of 3 - Risk 3-dose series) 2003 Influenza Vaccine (#1) 2025 , 07/23/2015, 07/13/2015, Additional history exists Pneumococcal Vaccine: 50+ Years Completed 02/17/2015, 07/06/2010, 09/22/2007 Pneumococcal Vaccine: Peds ( 0 to 5 Years) and At-Risk Patients (6 to 49 Years) Discontinued 02/17/2015, 07/06/2010, 09/22/2007 Insurance [facility] Medicare [facility] Medicare Care Teams Sheet Metal Shop Foreman Relationship Specialty Start Date End Date Stella Lemus [address] [place] [address] PCP - General 08/05/23
--- OUTSIDE RECORDS SUMMARY | 2025-05-27 14:49 | XMS_ITS | Patient Health Record ---
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 Phone CHRISTINA WALTERS Unavailable [phone] JMUANA INFANTE Unavailable [phone] Allergies Allergen (clinical drug ingredient) Drug/Non Drug Allergy documented on EMR Reaction Allergy Type Onset Date Status morphine morphine (uncoded) Unknown Allergy A ctive enoxaparin Lovenox BLEEDS Drug Allergy Active Results Component Value Reference Range Notes CBC WITH AUTO DIFFERENTIAL Reviewed date:02/24/2025 08:00:24 [...] 100 MG Oral; Duration: 90 Days Active Metoprolol Tartrate 25 mg TAKE ONE-HALF (1/2) TABLET TWICE A DAY WITH FOOD Active Warfarin Sodium 2.5 mg TAKE 1 TO 3 TABLETS ONCE A DAY DIRECTED BY PRIMARY CARE PHYSICIAN Active Fish Oil 1000 MG 1 capsule Orally Once a day; Duration: 30 day(s) Active Multivitamin - Orally Activ e Vitamin D 50 MCG (2000 UT) 1 [...] DAILY; Duration: 0 Active OneTouch Delica Plus [id number] - USE DIRECTED TO TEST BLOOD GLUCOSE [...] Notes Problem Anemia in chronic kidney disease (577557582) 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) Active confirmed Problem Diabetic renal disease (031634183) Type 2 diabetes mellitus with diabetic chronic kidney disease (E11.22) Active confirmed Problem Hyperglycemia due to type 2 diabetes mellitus (102231652984629) Type 2 diabetes mellitus with hyperglycemia (E11.65) Active confirmed Problem Disorder due to type 2 diabetes mellitus (467146900) Type 2 diabetes mellitus with unspecified complications (E11.8) Active confirmed Problem Type II diabetes mellitus without complication (345126715) Type 2 diabetes mellitus without complications (E11.9) Active confirmed Problem Vitamin D deficiency (84947491) Vitamin D deficiency, unspecified (E55.9) Active confirmed Problem 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 Problem Hyperlipidemia (17527056) Hyperlipidemia, unspecified (E78.5) Active confirmed Problem Essential hypertension (81229607) Essential (primary) hypertension (I10) Active confirmed Problem Cerebral infarction (253270648) Cerebral infarction, unspecified (I63.9) Active confirmed Problem Autoimmune hepatitis (812360912) Autoimmune hepatitis (K75.4) Active confirmed Problem Chronic kidney disease stage 3 (disorder) (572224680) Chronic kidney disease, stage 3 (moderate) (N18.3) Active confirmed Problem Long-term current us e of anticoagulant (742915497) 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 (Z79.01) Active confirmed Problem Benign prostatic hypertrophy without outflow obstruction (010783980) Benign prostatic hyperplasia without lower urinary tract symptoms (N40.0) Active confirmed Problem Backache (184807306) Back pain, unspecified back location, unspecified back pain laterality, unspecified chronicity (M54.9) Active confirmed Problem Adult health examination (543210389) Adult general medical exam (Z00.00) Active confirmed Problem Hypothyroidism (49216504) Hypothyroidism, unspecified type (E03.9) Active confirmed Problem Annual health maintenance examination (51208436) Annual physical exam (Z00.00) Active confirmed Problem Vitamin D deficiency (52699824) Vitamin D deficiency (E55.9) Active confirmed Problem Use of anticoagulation (603539251) Chronic anticoagulation (Z79.01) Active confirmed Problem Obesity (620636166) Obesity (BMI 30-39.9) (E66.9) Active confirmed Problem Type II diabetes mellitus without complication (563095215) Type 2 diabetes mellitus without complication, unspecified whether tank terminal gauger insulin use (E11.9) Active confirmed Problem Chronic kidney disease stage 3B (disorder) (484486977) Chronic kidney disease, stage 3b (N18.32) Active confirmed Problem Obstructive sleep apnea (33731092) Obstructive sleep apnea (G47.33) Active confirmed Problem Screening for malignant neoplasm of prostate (184709147) Prostate cancer screening (Z12.5) Active confirmed Problem Vitamin B>12< deficiency anaemia (77697801) Anemia due to vitamin B12 deficiency, 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) Active confirmed Problem Body mass index 30.0 0 to 34.99 (607962701171506) BMI 34.0-34.9,adult (Z68.34) Active confirmed Problem Degeneration of lumbar intervertebral disc (82470280) Degenerative disc disease, lumbar (M51.36) Active confirmed Problem Benign prostatic hypertrophy without outflow obstruction (107397334) BPH loc w/o ur obs/LUTS (N40.0) Active confirmed Problem Elevated level of transaminase and lactic acid dehydrogenase (finding) (753241689) Transaminitis (R74.01) Active confirmed Problem Bilateral low ba ck pain, unspecified chronicity, unspecified whether sciatica present (M54.50) Active confirmed Problem Aortic valve disease (2190505) Aortic valve disease (I35.9) Active confirmed Problem History of heart valve repair with prosthesis (055816615503320) Aortic valve replaced (Z95.2) Active confirmed Problem Diabetes mellitus type 2 in nonobese (942755150) Diabetes mellitus type 2 in nonobese (E11.9) Active confirmed Problem Obstructive sleep apnea syndrome (34685297) ARGENIS on CPAP (G47.33) Active confirmed Vital Signs Heart Rate 105 /min 02/24/2025 Oximetry 99 % 02/24/2025 Blood pressure diastolic 68 mm Hg 02/24/2025 Height 66 in 02/24/2025 Blood pressure systolic 122 mm Hg 02/24/2025 Weight 204 lbs 02/24/2025 BMI 32.92 kg/m2 02/24/2025 Encounters Encounter Location Date Provider Diagnosis [facility] [address] [place] [address] 05/31/2024 CHRISTINA WALTERS Type 2 diabetes phuong [...] (BMI 30-39.9) E66.9 and BMI 34.0-34.9,adult Z68.34 [facility] [address] [place] [address] 08/17/2024 CHRISTINA WALTERS Type 2 diabetes phuong [...] (BMI 30-39.9) E66.9 and BMI 34.0-34.9,adult Z68.34 [facility] [address] [place] [address] 11/18/2024 CHRISTINA WALTERS Type 2 diabetes phuong [...] 34.0-34.9,adult Z68.[address] [facility] [address] [place] [address] 02/24/2025 CHRISTINA WALTERS Type 2 diabetes phuong [...] Z01.[address] [facility] [address] [place] [address] 05/31/2024 CHRISTINA SELENA [facility] [address] [place] [address] 06/03/2024 CHRISTINA SELENA [facility] [address] [place] [address] 06/21/2024 JUMANA INFANTE [facility] [address] [address] 06/28/2024 CHRISTINA SELENA [facility] [address] [place] [address] 07/28/2024 CHRISTINA SELENA [facility] [address] [place] [address] 07/29/2024 CHRISTINA SELENA [facility] [address] [place] [address] 08/12/2024 CHRISTINA SELENA [facility] [address] [place] [address] 08/16/2024 CHRISTINA SELENA [facility] [address] [place] [address] 08/16/2024 CHRISTINA SELENA [facility] [address] [place] [address] 08/23/2024 CHRISTINA SELENA [facility] [address] [place] [address] 08/24/2024 TALAL INFANTE [facility] [address] [place] [address] 08/27/2024 TALAL INFANTE [facility] [address] [place] [address] 11/05/2024 CHRISTINA SELENA [facility] [address] [place], [place] 11/09/2024 TALAL INFANTE [facility] [address] [place] [address] 12/06/2024 CHRISTINA SELENA [facility] [address] [place] [address] 2025 TALAL INFANTE [facility] [address] [place] [address] 01/24/2025 CHRISTINA SELENA [facility] [address] [place], [place] 02/22/2025 CHRISTINA WALTESR Adult general medica l exam Z00.00 ; Type 2 diabetes mellitus with unspecified complications E11.8 and Hyperlipidemia, unspecified E78.5 [facility] [address] [place], [place] 03/18/2025 CHRISTINA SELENA [facility] [address] [place] [address] 04/27/2025 CHRISTINA WALTERS Type 2 diabetes phuong itus without complications E11.9 ; Hyperlipidemia, unspecified E78.5 ; Benign prostatic hyperplasia without lower urinary tract symptoms N40.0 ; Elevated LFTs R79.89 and Anemia in chronic kidney disease D63.[address] [facility] [address] [place] [address] 04/27/2025 CHRISTINA SELENA [facility] [address] [place] [address] 05/04/2025 CHRISTINA SELENA [facility] [address] [place], [place] 02/2025 CHRISTINA WALTERS Assessments Encounter Date Diagnosis (ICD Code) Assessment Notes Treatment Notes Treatment Clinical Notes Section Notes 08/17/2024 Type 2 diabetes mellitus with diabetic [...] Dictation was accomplished with the use of TherMark voice recognition software, prone to medical misidentifications [...] with < 0.2% episodes of apnea. Sees [facility] sleep medicine. Overnight Pulse oximeter ordered. [...] Dictation was accomplished with the use of [employer] voice recognition software, prone to medical misidentifications [...] with < 0.2% episodes of apnea. Sees [facility] sleep medicine. Overnight Pulse oximeter ordered. [...] Dictation was accomplished with the use of [employer]Mark voice recognition software, prone to medical misidentifications [...] diabetes mellitus without complications (ICD-10 - E11.9) 02/22/2025 Adult general medical exam (ICD-10 - Z00.00) 05/31/2024 Type 2 diabetes mellitus with diabetic [...] Dictation was accomplished with the use of TherMark voice recognition software, prone to medical misidentifications [...] Dictation was accomplished with the use of TherMark voice recognition software, prone to medical misidentifications [...] next visit it any questions/concerns arise. 02/24/2025 Type 2 diabetes mellitus with diabetic [...] log exercise and discussed fitness Apps like Wipebook which can help keep log off calories [...] Dictation was accomplished with the use of TherMark voice recognition software, prone to medical misidentifications [...] log exercise and discussed fitness Apps like Wipebook which can help keep log off calories [...] Dictation was accomplished with the use of TherMark voice recognition software, prone to medical misidentifications [...] log exercise and discussed fitness Apps like Wipebook which can help keep log off calories [...] Dictation was accomplished with the use of TherMark voice recognition software, prone to medical misidentifications [...] Dictation was accomplished with the use of TherMark voice recognition software, prone to medical misidentifications [...] next visit it any questions/concerns arise. 04/27/2025 Hyperlipidemia, unspecified (ICD-10 - E78.5) 11/18/2024 Bilateral low back pain, unspecified chronicity, unspecified whether sciatica present (ICD-10 - M54.50) # Depression. Pt PHQ9 8. Discussed SSRI therapy, pt reluctant due to being on too many meds . # Bilateral low back pain: Chronic problem, but overall stable # ARGENIS on CPAP: Recently obtained new CPAP, esteban shows sleeping average 7.5 hours with < 0.2% episodes of apnea. Sees [facility] sleep medicine. Overnight Pulse oximeter ordered. [...] Dictation was accomplished with the use of TherMark voice recognition software, prone to medical misidentifications [...] Dictation was accomplished with the use of [employer]agm[employer]360 voice recognition software, prone to medical misidentifications [...] Dictation was accomplished with the use of TherMark voice recognition software, prone to medical misidentifications [...] with < 0.2% episodes of apnea. Sees [facility] sleep medicine. Overnight Pulse oximeter ordered. [...] Dictation was accomplished with the use of TherMark voice recognition software, prone to medical misidentifications [...] lower urinary tract symptoms (ICD-10 - N40.0) 05/31/2024 ARGENIS on CPAP (ICD-10 - G47.33) [...] Dictation was accomplished with the use of TherMark voice recognition software, prone to medical misidentifications [...] log exercise and discussed fitness Apps like Wipebook which can help keep log off calories [...] Dictation was accomplished with the use of TherMark voice recognition software, prone to medical misidentifications [...] log exercise and discussed fitness Apps like Wipebook which can help keep log off calories [...] Dictation was accomplished with the use of TherMark voice recognition software, prone to medical misidentifications [...] Dictation was accomplished with the use of TherMark voice recognition software, prone to medical misidentifications [...] Dictation was accomplished with the use of TherMark voice recognition software, prone to medical misidentifications [...] with < 0.2% episodes of apnea. Sees [facility] sleep medicine. Overnight Pulse oximeter ordered. [...] Dictation was accomplished with the use of TherMark voice recognition software, prone to medical misidentifications [...] Dictation was accomplished with the use of TherMark voice recognition software, prone to medical misidentifications [...] with < 0.2% episodes of apnea. Sees [facility] sleep medicine. Overnight Pulse oximeter ordered. [...] Dictation was accomplished with the use of TherMark voice recognition software, prone to medical misidentifications [...] in chronic kidney disease (ICD-10 - D63.1) 05/31/2024 Hyperlipidemia, unspecified (ICD-10 - E78.5) # [...] Dictation was accomplished with the use of TherMark voice recognition software, prone to medical misidentifications [...] log exercise and discussed fitness Apps like Wipebook which can help keep log off calories [...] Dictation was accomplished with the use of TherMark voice recognition software, prone to medical misidentifications [...] log exercise and discussed fitness Apps like Wipebook which can help keep log off calories [...] Dictation was accomplished with the use of TherMark voice recognition software, prone to medical misidentifications [...] Dictation was accomplished with the use of TherMark voice recognition software, prone to medical misidentifications [...] with < 0.2% episodes of apnea. Sees [facility] sleep medicine. Overnight Pulse oximeter ordered. [...] Dictation was accomplished with the use of TherMark voice recognition software, prone to medical misidentifications [...] Dictation was accomplished with the use of TherMark voice recognition software, prone to medical misidentifications [...] with < 0.2% episodes of apnea. Sees [facility] sleep medicine. Overnight Pulse oximeter ordered. [...] Dictation was accomplished with the use of TherMark voice recognition software, prone to medical misidentifications [...] Dictation was accomplished with the use of TherMark voice recognition software, prone to medical misidentifications [...] Dictation was accomplished with the use of TherMark voice recognition software, prone to medical misidentifications [...] log exercise and discussed fitness Apps like Wipebook which can help keep log off calories [...] Dictation was accomplished with the use of TherMark voice recognition software, prone to medical misidentifications [...] log exercise and discussed fitness Apps like Wipebook which can help keep log off calories [...] Dictation was accomplished with the use of TherMark voice recognition software, prone to medical misidentifications [...] Dictation was accomplished with the use of TherMark voice recognition software, prone to medical misidentifications [...] Dictation was accomplished with the use of TherMark voice recognition software, prone to medical misidentifications [...] with < 0.2% episodes of apnea. Sees [facility] sleep medicine. Overnight Pulse oximeter ordered. [...] Dictation was accomplished with the use of TherMark voice recognition software, prone to medical misidentifications [...] with < 0.2% episodes of apnea. Sees [facility] sleep medicine. Overnight Pulse oximeter ordered. [...] Dictation was accomplished with the use of TherMark voice recognition software, prone to medical misidentifications [...] Dictation was accomplished with the use of [employer] voice recognition software, prone to medical misidentifications [...] Dictation was accomplished with the use of TherMark voice recognition software, prone to medical misidentifications [...] log exercise and discussed fitness Apps like Wipebook which can help keep log off calories [...] Dictation was accomplished with the use of TherMark voice recognition software, prone to medical misidentifications [...] log exercise and discussed fitness Apps like Wipebook which can help keep log off calories [...] Dictation was accomplished with the use of TherMark voice recognition software, prone to medical misidentifications [...] Dictation was accomplished with the use of TherMark voice recognition software, prone to medical misidentifications [...] Dictation was accomplished with the use of TherMark voice recognition software, prone to medical misidentifications [...] with < 0.2% episodes of apnea. Sees [facility] sleep medicine. Overnight Pulse oximeter ordered. [...] Dictation was accomplished with the use of TherMark voice recognition software, prone to medical misidentifications [...] Dictation was accomplished with the use of TherMark voice recognition software, prone to medical misidentifications [...] log exercise and discussed fitness Apps like Wipebook which can help keep log off calories [...] Dictation was accomplished with the use of TherMark voice recognition software, prone to medical misidentifications [...] log exercise and discussed fitness Apps like Wipebook which can help keep log off calories [...] Dictation was accomplished with the use of TherMark voice recognition software, prone to medical misidentifications [...] log exercise and discussed fitness Apps like Wipebook which can help keep log off calories [...] Dictation was accomplished with the use of TherMark voice recognition software, prone to medical misidentifications [...] log exercise and discussed fitness Apps like Wipebook which can help keep log off calories [...] Dictation was accomplished with the use of TherMark voice recognition software, prone to medical misidentifications [...] COUNT) 04/27/2019 CBC (COMPLETE BLOOD COUNT) 06/02/2020 CBC (COMPLETE BLOOD COUNT) 09/01/2018 COMPREHENSIVE METABOLIC PANEL 09/01/2018 COMPREHENSIVE METABOLIC PANEL 06/02/2020 COMPREHENSIVE METABOLIC PANEL 04/27/2019 COMPREHENSIVE METABOLIC PANEL 11/02/2019 COMPREHENSIVE METABOLIC PANEL 05/21/2021 COMPREHENSIVE METABOLIC PANEL 10/15/2021 HEMOGLOBIN A1C 10/27/2017 HEMOGLOBIN A1C 05/21/2021 HEMOGLOBIN A1C 10/15/2021 HEMOGLOBIN A1C 11/02/2019 HEMOGLOBIN A1C 04/27/2019 HEMOGLOBIN A1C 11/26/2022 HEMOGLOBIN A1C 06/02/2020 LIPID PANEL 09/01/2018 LIPID PANEL 06/02/2020 LIPID PANEL 04/27/2019 LIPID PANEL 05/21/2021 LIPID PANEL 11/02/2019 LIPID PANEL 10/15/2021 PSA, SCREEN 10/15/2021 TSH 10/15/2021 URINALYSIS, COMPLETE 11/02/2019 URINALYSIS, COMPLETE 04/27/2019 URINALYSIS, COMPLETE 06/02/2020 URINALYSIS, COMPLETE 09/01/2018 AST/SGOT 11/21/2021 US Extrem Non-Vascular RT 05/15/2023 PT/INR 04/27/2019 LIPID PANEL, STANDARD 11/14/2023 LIPID PANEL, STANDARD 04/06/2024 LIPID PANEL, STANDARD 04/27/2025 HEPATITIS PANEL, ACUTE W/REFLEX TO CONFI RMATION 11/21/2021 COMPREHENSIVE METABOLIC PANEL 04/06/2024 COMPREHENSIVE METABOLIC PANEL 02/22/2025 COMPREHENSIVE METABOLIC PANEL 11/14/2023 COMPREHENSIVE METABOLIC PANEL 02/19/2024 COMPREHENSIVE METABOLIC PANEL 04/27/2025 CBC (INCLUDES DIFF/PLT) 04/27/2025 CBC (INCLUDES DIFF/PLT) 02/19/2024 CBC (INCLUDES DIFF/PLT) 02/22/2025 CBC (INCLUDES DIFF/PLT) 11/14/2023 CBC (INCLUDES DIFF/PLT) 04/06/2024 URINALYSIS, COMPLETE 11/14/2023 HEMOGLOBIN A1c 11/14/2023 HEMOGLOBIN A1c 02/19/2024 VITAMIN B12 11/14/2023 PSA (FREE AND TOTAL) 04/27/2025 PSA (FREE AND TOTAL) 11/14/2023 VITAMIN D,25-OH,TOTAL,IA 11/14/2023 COMPLETE URINALYSIS 10/15/2021 COMPLETE URINALYSIS 05/21/2021 Lumbar Spine 2 or 3 Views 03/02/2024 Hemoglobin [id number] 04/27/2025 Future Test Test Name Order Date CBC (COMPLETE BLOOD COUNT) 05/05/2021 COMPREHENSIVE METABOLIC PANEL 05/05/2021 HEMOGLOBIN A1C 05/05/2021 COMPREHENSIVE METABOLIC PANEL 12/04/2022 HEMOGLOBIN A1C 12/04/2022 URINALYSIS W/REFLEX CULTURE 12/04/2022 Next Appt Details Provider Name:JUMANA Alexus MARY, 06/30/2025 10:30:00 AM, [address], [place], [address], Insurance Providers Payer Name Payer Address Payer Phone Subscriber Number Group Number Insured Name Patient Relationship to Insured Coverage Start Date Coverage End Date Medicare Part B J [address] [place] [address] [phone] [id number] IRVIN SUAZO Self - patient is the insured [employer] [address] [place] [address] [phone] [id number] IRVIN SUAZO Self - patient is the [...]
--- OUTSIDE RECORDS SUMMARY | 2025-05-27 14:49 | XMS_ITS | Clinical Summary ---
Author Organization [facility] Address [address] [address] Phone Care Team Providers Care Molding Line Operator Name Role Phone Osito Infante MD Primary [...] this topic Medical Devices Implanted Type Area Editorial Clerk Device Identifier Shelf Expiration Date Model / Serial / Lot Filter Filter Leg Prosthetic Valve Prosthetic Valve Aorta Insurance CR[employer] MEDEX SUPPLEMENT MEDICARE PART A & B mobifriends MEDEX SUPPLEMENT MEDICARE PART A & B [employer] MEDEX SUPPLEMENT MEDICARE PART A & B [employer] MEDEX SUPPLEMENT MEDICARE PART A & B [employer] MEDEX SUPPLEMENT MEDICARE PART A & B MEDEX SUPPLEMENT MEDICARE PART A & B Care Teams Molding Line Operator Relationship Specialty Start Date End Date Osito Infante MD [address] [place] [phone] PCP - General Internal Medicine 11/29/22 Additional Source Comments The information contained in this document represents components of the legal health record. It is not the complete legal health record.[facility]
--- OUTSIDE RECORDS SUMMARY | 2025-05-27 14:49 | XMS_ITS | Clinical Summary ---
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[facility] V24, [facility]/H [facility] V28) 12/01/2023 Factor V Leiden ([facility] V24) 12/01/2023 ARGENIS (obstructive sleep apnea) 12/01/2023 Seizures ([facility] V24, [facility] V28) 12/01/2023 Allergic rhinitis 07/21/2019 Autoimmune hepatitis ([facility] V24, [facility] V28) 07/21/2019 Overview (12/01/2023): 2011 BPH (benign prostatic hyperplasia) 07/21/2019 CAD (coronary artery disease) 07/21/2019 Overview (12/01/2023): CABG Carotid artery stenosis 07/21/2019 Overview (12/01/2023): Bilateral Cataract 07/21/2019 Chronic venous insufficiency 07/21/2019 Hyperlipidemia 07/21/2019 Hypertension 07/21/2019 Interstitial lung disease ([facility] V24, [facility] V28) 07/21/2019 Nephrolithiasis 07/21/2019 Type 2 diabetes mellitus ([facility] V24, [facility] V 28) 07/21/2019 DM (diabetes mellitus), type 2 with peripheral vascular complications ([facility] V24, [facility] V28) 07/21/2019 DM (diabetes mellitus), type 2 with renal complications ([facility] V24, [facility] V28) 07/21/2019 Type 2 diabetes mellitus wit h cataract ([facility] V24, [facility] V28) 07/21/2019 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 Aneurysm of ascending aorta ([facility] V24) 2016 Iron deficiency anemia 12/12/2015 Immunizations [...] Medical History Date Comments Factor V Leiden ([facility] V24) DX :Factor V Leiden (HCC) Seizures ([facility] V24, [facility] V28) DX:Seizures (HCC) DVT (deep venous thrombosis) ([facility] V24, [facility] V28) DX:DVT (deep venous thrombos is) (HCC) 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[facility]/HCC V24, [facility]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 (HCC) Aortic valve replaced DX:Aortic valve replaced ARGENIS (obstructive sleep apnea) DX :ARGENIS (obstructive sleep apnea) BPH (benign prostatic hyperplasia) 07/21/2019 DX:BPH (benign prostatic hyperplasia) CKD (chronic kidney disease) stage 3, GFR 30-59 ml/min ([facility] V24, [facility] V28) DX:CKD (chronic kidney disea se) stage 3, GFR 30-59 ml/min ([facility]) Hyperlipidemia 07/21/2019 DX:Hyperlipidemi a Hypertension 07/21/2019 DX:Hypertension CAD (coronary artery disease) 07/21/2019 DX :CAD (coronary artery disease); COMMENT: CABG DM (diabetes mellitus), type 2 with renal complications ([facility] V24, [facility] V28) 07/21/2019 DX:DM (diabetes mellitus), t ype 2 with renal complications (HCC) Nephrolithiasis 07/21/2019 DX:Nephrolithias is Autoimmune hepatitis ([facility]/HC C V24, [facility] V28) 07/21/2019 DX:Autoimmune hepatitis (HCC ) Interstitial lung disease ([facility]/HCC V24, [facility] V28) 07/21/2019 DX:Interstitial lung disease (HCC) Allergic rhinitis 07/21/2019 DX:Allergic rh initis Cataract 07/21/2019 DX:Cataract Type 2 diabetes mellitus wit h cataract ([facility] V24, [facility] V28) 07/21/2019 DX:Type 2 diabetes mellitus with cataract ([facility]) Chronic venous insufficiency 07/21/2019 DX: Chronic venous insufficiency DM (diabetes mellitus), type 2 with peripheral vascular complications ([facility] V24, [facility] V28) 07/21/2019 DX:DM (diabetes mellitus), type 2 with peripheral vascular complications ([facility]) Carotid artery stenosis 07/21/2019 DX:Carot id artery stenosis; COMMENT: Bilateral History of DVT (deep vein thrombosis) 08/21/2018 DX:History of DVT (deep vein thrombosis) 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:Post -thrombotic syndrome Aneurysm of ascending aorta ([facility] V24) 07/28/2017 DX:Aneurysm of ascending aor ta ([facility]) Family History Medical History Relation Name [...] 10:00 AM EDT Office Visit Gastroenterology - [address] [place] [address] Henry Morris MD [address] [place] [phone] Health Maintenance Due Date Last Done Comments [...] Procedure Name Priority Date/Time Associated Diagnosis Comments COMPREHENSIVE METABOLIC PANEL Routine 02/23/2025 8:50 AM EDT Routine general medical examination at a health care facility Diabetic complication ([facility] V24, [facility] V28) Hyperlipemia MICROALBUMIN CREATININE URINE RATIO Routine 01/25/2025 3:12 PM EDT Chronic kidney disease (CKD) stage G3b/A1, moderately decreased glomerular filtration rate (GFR) between 30-44 mL/min/1.73 square meter and albuminuria creatinine ratio les* ([facility] V24, [facility] V28) Renal osteodystrophy from Last 3 Months or Most Recently Relevant to Health Maintenance Results * (ABNORMAL) Comprehensive metabolic panel (02/23/2025 8:50 AM EDT) Sodium 141 133 - 145 mmol/L LAB CHEMISTRY METHOD 02/23/2025 10:54 AM [facility] Potassium 4.5 3.5 - 5.5 mmol/L LAB CHEMISTRY METHOD 02/23/2025 10:54 AM [facility] Chloride 108 96 - 110 mmol/L LAB CHEMISTRY METHOD 02/23/2025 10:54 AM [facility] CO2 29 21 - 32 mmol/L LAB CHEMISTRY METHOD 02/23/2025 10:54 AM [facility] Anion Gap 4 3 - 11 LAB CHEMISTRY METHOD 02/23/2025 10:54 AM [facility] Glucose 106(H) 70 - 100 mg/dL LAB CHEMISTRY METHOD 02/23/2025 10:54 AM [facility] BUN 32(H) 5 - 25 mg/dL LAB CHEMISTRY METHOD 02/23/2025 10:54 AM [facility] Creatinine 1.71(H) 0.70 - 1.30 mg/dL LAB CHEMISTRY METHOD 02/23/2025 10:54 AM [facility] eGFR 39(L) >=60 mL/min/1. 73m2 LAB CHEMISTRY METHOD 02/23/2025 10:54 AM [facility] Comment:Calculation based on the Chronic Kidney Disease Epidemiology Collaboration (CKD-EPI) equation refit without adjustment for race. BUN/Creatinine Ratio 18.7 LAB CHEMISTRY METHOD 02/23/2025 10:54 AM [facility] Calcium 9.7 8.5 - 10.5 mg/dL LAB CHEMISTRY METHOD 02/23/2025 10:54 AM [facility] AST (SGOT) 30 10 - 42 unit/L LAB CHEMISTRY METHOD 02/23/2025 10:54 AM [facility] ALT (SGPT) 20 10 - 60 unit/L LAB CHEMISTRY METHOD 02/23/2025 10:54 AM [facility] Alkaline Phosphatase 69 42 - 121 unit/L LAB CHEMISTRY METHOD 02/23/2025 10:54 AM [facility] Total Protein 7.3 6.0 - 8.0 g/dL LAB CHEMISTRY METHOD 02/23/2025 10:54 AM [facility] Albumin 3.4 3.2 - 5.0 g/dL LAB CHEMISTRY METHOD 02/23/2025 10:54 AM [facility] Total Bilirubin 0.8 0.0 - 1.4 mg/dL LAB CHEMISTRY METHOD 02/23/2025 10:54 AM [facility] Blood Venous blood specimen / Unknown Venipuncture / Unknown 02/23/2025 8:50 AM EDT 02/23/2025 10:54 AM EDT us Stella MALDONADO LAB BLOOD ORDERABLES Final Resul t Performing Organization Address City/[facility]/ZIP Co de Phone Number [facility] [address] [place] [address], [place] [phone] * (ABNORMAL) Microalbumin creatinine urine ratio (01/25/2025 3:12 PM EDT) Creatinine, Urine 105.0 mg/dL LAB CHEMISTRY METHOD 01/25/2025 8:46 PM EDT [facility] Microalb, Ur 868.0(H) 0.0 - 29.0 mg/L LAB CHEMISTRY METHOD 01/25/2025 8:46 PM EDT [facility] Microalb/Crea t Ratio 827(H) <30 mg/g creat LAB CHEMISTRY METHOD 01/25/2025 8:46 PM EDT [facility] Urine Urine specimen obtained by clean catch procedure / Unknown Non-blood Collection / Unknown 01/25/2025 3:12 PM EDT 01/25/2025 4:11 PM EDT us Joaquin Guaman MD LAB URINE ORDERABLES Final Re sult Performing Organization Address [facility]/ZIP Co de Phone Number [facility] [address] [place] [address], [place] [phone] from Last 3 Months or Most Recently Relevant to Health Maintenance Insurance MEDICARE [facility] Advance Directives Documents on File Type Date Recorded Patient Customer Service Coordinator Expl anation Health Care Decision (hx) 01/06/2012 AD PEREZ DIRECTIVE Health Care Decision (hx) 01/06/2012 AD PEREZ DIRECTIVE Health Care Decision (hx) 01/06/2012 AD PEREZ DIRECTIVE Care Teams Cement Despatch Operator Relationship Specialty Start Date End Date Espinoza Infante MD [address] [place] [phone] PCP - General Internal Medicine 10/18/24
--- OUTSIDE RECORDS SUMMARY | 2025-05-27 14:50 | XMS_ITS | Encounter Summary ---
Author Organization [facility] Address [address] [facility] [address] [place] [phone] Phone Care Team Providers Care Telephonic Nurse Name Role Phone Osito Infante MD Primary Care Provider Encounter Details Date Type Department Care Team (Late st Contact Info) Description 11/29/2022 Procedure Pass [facility] [address] [place] [address] Social History Tobacco Use Types Packs/Day Years [...] on filedocumented in this encounter Care Teams Telephonic Nurse Relationship Specialty Start Date End Date Osito Infante MD [address] [place] [phone] PCP - General Internal Medicine 11/29/22 documented as of this encounter Additional Source Comments The information contained in this document represents components of the legal health record. It is not the complete legal health record.[facility]
--- OUTSIDE RECORDS SUMMARY | 2025-05-27 14:50 | XMS_ITS | Encounter Summary ---
Author Organization [facility] Address [address] [place] [address] Phone Care Team Providers Care Systems Mechanic Name Role Phone Osito Infante MD Primary Care Provider [phone] Encounter Details Date Type Department Care Team (Late st Contact Info) Description 01/09/2023 Procedure Pass [facility] [address] [place] [address] Social History Tobacco Use Types Packs/Day Years [...] on filedocumented in this encounter Care Teams Systems Mechanic Relationship Specialty Start Date End Date Osito Infante MD [address] [place] [phone] PCP - General Internal Medicine 11/29/22 documented as of this encounter Additional Source Comments The information contained in this document represents components of the legal health record. It is not the complete legal health record.[facility]
== END 2025-05-27 14:49 | disposition home or self-care (01) ==
LOC: HO.ACS 14:29
PROVIDERS: PCP Physician Assistant Medical; Visit Provider Internal Medicine Medical Oncology
DX: Z79.01 Long term (current) use of anticoagulants (principal)

== ENCOUNTER → 2025-05-27 14:29 | Outpatient (BNVA) | payer MEDICARE, SELFPAY | PROVIDERS: PCP Physician Assistant Medical; Visit Provider Internal Medicine Medical Oncology | DX: Z51.81 Encounter for therapeutic drug level monitoring (principal); Z79.01 Long term (current) use of anticoagulants | CPT/HCPCS: 85610; 99211 ==

== ENCOUNTER → 2025-05-31 10:01 | Outpatient (BNVA) | payer MEDICARE, SELFPAY | PROVIDERS: PCP Physician Assistant Medical; Visit Provider Internal Medicine Medical Oncology | DX: Z51.81 Encounter for therapeutic drug level monitoring (principal); Z79.01 Long term (current) use of anticoagulants | CPT/HCPCS: 85610; 99211 ==

== ENCOUNTER 2025-06-14 10:01 | Outpatient (AMB) | payer MEDICARE, SELFPAY ==
--- NOTE | 2025-06-14 10:25 | MHC.OFFVISCO ---
Intake Intake Visit Reasons: Anticoagulation Allergies lovenox Allergy (Severe, Uncoded 06/14/25 10:07) bleeding morphine Allergy (Severe, Uncoded 06/14/25 10:07) Rash kepra Adverse Reaction (Severe, Uncoded 06/14/25 10:07) Drowsy Medication List - Last Reconciled 06/14/25 by Sultana Romero RN amoxicillin 2,000 mg PO ONCE PRN azathioprine 150 mg PO DAILY calcium carbonate-vitamin D3 600 mg-10 mcg (400 unit) caps PO DAILY cholecalciferol (vitamin D3) 25 mcg PO DAILY finasteride 5 mg PO DAILY gabapentin 600 mg PO BID metoprolol tartrate 12.5 mg PO BID multivitamin 1 tab PO DAILY nitrofurantoin monohyd/m-cryst 100 mg caps PO omega 6-nbf-tbg-fish oil 1,000 (120-180) mg (Fish Oil) 1 cap PO BID simvastatin 40 mg PO BEDTIME tamsulosin 0.8 mg PO DAILY triamcinolone acetonide 0.1% 1 appl topical DAILY PRN warfarin 2.5 mg See Protocol PO DAILY Nursing Note INR: 4.1 OUT of therapeutic range 2.5-3.5 Medications and supplements reviewed- took tylenol for back pain last night - will discuss back hugo with PCP next week pt drank cramberry juice last night Tyelnol, stress and cranberry juice can all raise the INR No changes in health, medications, or supplements, Denies any signs and symptoms of bleeding or bruising or clotting. Bleeding, bruising, clotting discussed Nutritional guidance given - eat greens today and weekly, cont to eat a balance of fruits and vegetables Dose: decrease weekly dose today to 2mg and eat greens today, then resume 7.5mg x 2 days/ 5mg x 5days F/U INR: 2 weeks per pt request Pt to call [facility] with any med or health changes Patient verbalizes understanding of instructions given Anti-Coag Initial Assessment Social Hx Patient Tobacco Use Status: Never used Tobacco alcohol intake: current Alcohol intake frequency: holidays/special occasions only Cardiovascular Hx: HTN Lung Disease HX: DVT/PE and Other Endocrine Hx: Diabetes and Autoimmune disorders Blood Disorder Hx: Hyperlipidemia and Hepatitis Hx: Kidney Disease and Prostate Neurological Hx: Epilepsy/Seizures and Stroke/TIA Cancer HX: No Psych. Illness/Depression: No Coding Level of Care Code Est Patient Level 1 Diagnoses Current use of anticoagulant therapy Z79.01 Results AMB INR Fingerstick AMB INR Fingerstick 4.1 Last Edit by Sultana Romero RN on 06/14/25 10:14 MANUAL ENTRY Assessment & Plan Assessment & Plan (1) Current use of anticoagulant therapy: Code(s): Z79.01 - senior living (current) use of anticoagulants Category: Medical
--- OUTSIDE RECORDS SUMMARY | 2025-06-14 12:06 | XMS_ITS | Encounter Summary ---
Author Organization [facility] Address [address] [facility] [address] [place] [phone] Phone Care Team Providers Care Installation Superintendent Name Role Phone Osito Infante MD Primary Care Provider Encounter Details Date Type Department Care Team (Late st Contact Info) Description 11/29/2022 Procedure Pass [facility] [address] [place] [address] Social History Tobacco Use Types Packs/Day Years [...] on filedocumented in this encounter Care Teams Installation Superintendent Relationship Specialty Start Date End Date Osito Infante MD [address] [place] [phone] PCP - General Internal Medicine 11/29/22 documented as of this encounter Additional Source Comments The information contained in this document represents components of the legal health record. It is not the complete legal health record.[facility]
--- OUTSIDE RECORDS SUMMARY | 2025-06-14 12:06 | XMS_ITS | Patient Health Record ---
Author Organization [facility] [address] Address [address] [place] [address] Care Team Providers Care Non Ferrous Material Handler Name Role Phone CHRISTINA WALTERS Unavailable [phone] JUMANA INFANTE Unavailable [phone] Allergies Allergen (clinical drug ingredient) Drug/Non Drug [...] DAILY; Duration: 0 Active OneTouch Delica Plus [id number] - USE DIRECTED TO TEST BLOOD GLUCOSE [...] Notes Problem Anemia in chronic kidney disease (506363957) 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) Active confirmed Problem Diabetic renal disease (122522786) Type 2 diabetes mellitus with diabetic chronic kidney disease (E11.22) Active confirmed Problem Hyperglycemia due to type 2 diabetes mellitus (889329718250202) Type 2 diabetes mellitus with hyperglycemia (E11.65) Active confirmed Problem Disorder due to type 2 diabetes mellitus (894624721) Type 2 diabetes mellitus with unspecified complications (E11.8) Active confirmed Problem Type II diabetes mellitus without complication (731731405) Type 2 diabetes mellitus without complications (E11.9) Active confirmed Problem Vitamin D deficiency (34921844) Vitamin D deficiency, unspecified (E55.9) Active confirmed Problem 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 Problem Hyperlipidemia (23603758) Hyperlipidemia, unspecified (E78.5) Active confirmed Problem Essential hypertension (48892288) Essential (primary) hypertension (I10) Active confirmed Problem Cerebral infarction (792633226) Cerebral infarction, unspecified (I63.9) Active confirmed Problem Autoimmune hepatitis (438204036) Autoimmune hepatitis (K75.4) Active confirmed Problem Chronic kidney disease stage 3 (disorder) (958273035) Chronic kidney disease, stage 3 (moderate) (N18.3) Active confirmed Problem Long-term current us e of anticoagulant (744936788) alf (current) use of anticoagulants (Z79.01) Active confirmed Problem Benign prostatic hypertrophy without outflow obstruction (404155784) Benign prostatic hyperplasia without lower urinary tract symptoms (N40.0) Active confirmed Problem Backache (415747634) Back pain, unspecified back location, unspecified back pain laterality, unspecified chronicity (M54.9) Active confirmed Problem Adult health examination (864123358) Adult general medical exam (Z00.00) Active confirmed Problem Hypothyroidism (43239471) Hypothyroidism, unspecified type (E03.9) Active confirmed Problem Annual health maintenance examination (68662867) Annual physical exam (Z00.00) Active confirmed Problem Vitamin D deficiency (83459921) Vitamin D deficiency (E55.9) Active confirmed Problem Use of anticoagulation (660924977) Chronic anticoagulation (Z79.01) Active confirmed Problem Obesity (989106809) Obesity (BMI 30-39.9) (E66.9) Active confirmed Problem Type II diabetes mellitus without complication (392281142) Type 2 diabetes mellitus without complication, unspecified whether remote computer terminal operator insulin use (E11.9) Active confirmed Problem Chronic kidney disease stage 3B (disorder) (316873707) Chronic kidney disease, stage 3b (N18.32) Active confirmed Problem Obstructive sleep apnea (48609552) Obstructive sleep apnea (G47.33) Active confirmed Problem Screening for malignant neoplasm of prostate (811895624) Prostate cancer screening (Z12.5) Active confirmed Problem Vitamin B>12< deficiency anaemia (20905320) Anemia due to vitamin B12 deficiency, 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) Active confirmed Problem Body mass index 30.0 0 to 34.99 (366743456725637) BMI 34.0-34.9,adult (Z68.34) Active confirmed Problem Degeneration of lumbar intervertebral disc (30217674) Degenerative disc disease, lumbar (M51.36) Active confirmed Problem Benign prostatic hypertrophy without outflow obstruction (564697029) BPH loc w/o ur obs/LUTS (N40.0) Active confirmed Problem Elevated level of transaminase and lactic acid dehydrogenase (finding) (099655491) Transaminitis (R74.01) Active confirmed Problem Bilateral low ba ck pain, unspecified chronicity, unspecified whether sciatica present (M54.50) Active confirmed Problem Aortic valve disease (4671292) Aortic valve disease (I35.9) Active confirmed Problem History of heart valve repair with prosthesis (290614776259861) Aortic valve replaced (Z95.2) Active confirmed Problem Diabetes mellitus type 2 in nonobese (989549181) Diabetes mellitus type 2 in nonobese (E11.9) Active confirmed Problem Obstructive sleep apnea syndrome (73507358) ARGENIS on CPAP (G47.33) Active confirmed Vital Signs Heart Rate 105 /min 02/24/2025 Blood pressure diastolic 68 mm Hg 02/24/2025 Oximetry 99 % 02/24/2025 Height 66 in 02/24/2025 Blood pressure systolic 122 mm Hg 02/24/2025 Weight 204 lbs 02/24/2025 BMI 32.92 kg/m2 02/24/2025 Encounters Encounter Location Date Provider Diagnosis [facility] [address] [place] [address] 08/17/2024 CHRISTINA WALTERS Type 2 diabetes phuong [...] (BMI 30-39.9) E66.9 and BMI 34.0-34.9,adult Z68.34 [facility] [address] [place] [address] 11/18/2024 CHRISTINA WALTERS Type 2 diabetes phuong [...] (BMI 30-39.9) E66.9 and BMI 34.0-34.9,adult Z68.34 [facility] [address] [place] [address] 02/24/2025 CHRISTINA WALTERS Type 2 diabetes phuong [...] Z01.[address] [facility] [address] [place] [address] 06/21/2024 TALAL INFANTE [facility] [address] [place] [address] 06/28/2024 CHRISTINA SELENA [facility] [address] [place] [address] 07/28/2024 CHRISTINA SELENA [facility] [address] [place] [address] 07/29/2024 CHRISTINA SELENA [facility] [address] [place], [place] 08/12/2024 CHRISTINA SELENA [facility] [address] [place] [address] 08/16/2024 CHRISTINA SELENA [facility] [address] [place] [address] 08/16/2024 CHRISTINA SELENA [facility] [address] [place] [address] 08/23/2024 CHRISTINA SELENA [facility] [address] [place] [address] 08/24/2024 TALAL INFANTE [facility] [address] [place], [place] 08/27/2024 TALAL INFANTE [facility] [address] [place] [address] 11/05/2024 CHRISTINA SELENA [facility] [address] [place], [place] 11/09/2024 TALAL INFANTE [facility] [address] [place] [address] 12/06/2024 CHRISTINA SELENA [facility] [address] [place] [address] 2025 TALAL INFANTE [facility] [address] [place] [address] 01/24/2025 CHRISTINA WALTERS [facility] [address] [facility] [address] [place] [address] 02/22/2025 CHRISTINA WALTERS Adult general medica l exam Z00.00 ; Type 2 diabetes mellitus with unspecified complications E11.8 and Hyperlipidemia, unspecified E78.5 [facility] [address] [facility] [address] [place] [address] 03/18/2025 CHRISTINA SELENA [facility] [address] [place] [address] 04/27/2025 CHRISTINA WALTERS Type 2 diabetes phuong itus without complications E11.9 ; Hyperlipidemia, unspecified E78.5 ; Benign prostatic hyperplasia without lower urinary tract symptoms N40.0 ; Elevated LFTs R79.89 and Anemia in chronic kidney disease D63.[address] [facility] [address] [place] [address] 04/27/2025 CHRISTINA WALTERS [facility] [address] [place] [address] 05/04/2025 CHRISTINA WALTERS [facility] [address] [place] [address] 05/24/2025 CHRISTINA WALTERS Assessments Encounter Date Diagnosis (ICD [...] Dictation was accomplished with the use of [employer] voice recognition software, prone to medical misidentifications [...] with < 0.2% episodes of apnea. Sees [facility] sleep medicine. Overnight Pulse oximeter ordered. [...] with < 0.2% episodes of apnea. Sees [facility] sleep medicine. Overnight Pulse oximeter ordered. [...] Dictation was accomplished with the use of [employer] voice recognition software, prone to medical misidentifications [...] log exercise and discussed fitness Apps like [employer] which can help keep log off calories [...] Dictation was accomplished with the use of [employer] voice recognition software, prone to medical misidentifications [...] log exercise and discussed fitness Apps like [employer] which can help keep log off calories [...] Dictation was accomplished with the use of [employer] voice recognition software, prone to medical misidentifications [...] log exercise and discussed fitness Apps like [employer] which can help keep log off calories [...] Dictation was accomplished with the use of [employer] voice recognition software, prone to medical misidentifications [...] mellitus with unspecified complications (ICD-10 - E11.8) 11/18/2024 Bilateral low back pain, unspecified chronicity, unspecified whether sciatica present (ICD-10 - M54.50) # Depression. Pt PHQ9 8. Discussed SSRI therapy, pt reluctant due to being on too many meds . # Bilateral low back pain: Chronic problem, but overall stable # ARGENIS on CPAP: Recently obtained new CPAP, esteban shows sleeping average 7.5 hours with < 0.2% episodes of apnea. Sees [facility] sleep medicine. Overnight Pulse oximeter ordered. [...] Dictation was accomplished with the use of [employer] voice recognition software, prone to medical misidentifications [...] Dictation was accomplished with the use of [employer] voice recognition software, prone to medical misidentifications [...] Dictation was accomplished with the use of [employer] voice recognition software, prone to medical misidentifications [...] with < 0.2% episodes of apnea. Sees [facility] sleep medicine. Overnight Pulse oximeter ordered. [...] Dictation was accomplished with the use of [employer] voice recognition software, prone to medical misidentifications [...] log exercise and discussed fitness Apps like [employer] which can help keep log off calories [...] Dictation was accomplished with the use of [employer] voice recognition software, prone to medical misidentifications [...] lower urinary tract symptoms (ICD-10 - N40.0) 04/27/2025 Elevated LFTs (ICD-10 - R79.89) 02/24/2025 ARGENIS on CPAP (ICD-10 - G47.33) [...] log exercise and discussed fitness Apps like [employer] which can help keep log off calories [...] Dictation was accomplished with the use of [employer] voice recognition software, prone to medical misidentifications [...] with < 0.2% episodes of apnea. Sees [facility] sleep medicine. Overnight Pulse oximeter ordered. [...] Dictation was accomplished with the use of [employer] voice recognition software, prone to medical misidentifications [...] Dictation was accomplished with the use of [employer] voice recognition software, prone to medical misidentifications [...] Dictation was accomplished with the use of [employer] voice recognition software, prone to medical misidentifications [...] with < 0.2% episodes of apnea. Sees [facility] sleep medicine. Overnight Pulse oximeter ordered. [...] Dictation was accomplished with the use of [employer] voice recognition software, prone to medical misidentifications [...] log exercise and discussed fitness Apps like [employer] which can help keep log off calories [...] Dictation was accomplished with the use of [employer] voice recognition software, prone to medical misidentifications [...] chronic kidney disease (ICD-10 - D63.1) 11/18/2024 Aortic valve replaced (ICD-10 - Z95.2) # Depression. Pt PHQ9 8. Discussed SSRI therapy, pt reluctant due to being on too many meds . # Bilateral low back pain: Chronic problem, but overall stable # ARGENIS on CPAP: Recently obtained new CPAP, esteban shows sleeping average 7.5 hours with < 0.2% episodes of apnea. Sees [facility] sleep medicine. Overnight Pulse oximeter ordered. [...] Dictation was accomplished with the use of [employer] voice recognition software, prone to medical misidentifications [...] log exercise and discussed fitness Apps like [employer] which can help keep log off calories [...] Dictation was accomplished with the use of [employer] voice recognition software, prone to medical misidentifications [...] Dictation was accomplished with the use of [employer] voice recognition software, prone to medical misidentifications [...] Dictation was accomplished with the use of [employer] voice recognition software, prone to medical misidentifications [...] with < 0.2% episodes of apnea. Sees [facility] sleep medicine. Overnight Pulse oximeter ordered. [...] Dictation was accomplished with the use of [employer] voice recognition software, prone to medical misidentifications [...] 1.65. Followed by Dr. Guaman # Screenings: [facility] Men Patient seen and examined. Comprehensive [...] log exercise and discussed fitness Apps like [employer] which can help keep log off calories [...] Dictation was accomplished with the use of [employer] voice recognition software, prone to medical misidentifications [...] log exercise and discussed fitness Apps like [employer] which can help keep log off calories [...] Dictation was accomplished with the use of [employer] voice recognition software, prone to medical misidentifications [...] with < 0.2% episodes of apnea. Sees [facility] sleep medicine. Overnight Pulse oximeter ordered. 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 A1C at next visit. Pt intermittenly checks POC are reports fine . has not seen podiatry in quiet some time. Does have some neuropathy # Hyperlipidemia: Continue statin # CKD III. Baseline creaitnine 1.65. Followed by Dr. Guamna Case discussed with collaborating physician Alexus Infante who reviewed the assessment and plan. Chart, medications, labs, vital signs reviewed. Dictation was accomplished with the use of [employer] voice recognition software, prone to medical misidentifications [...] Dictation was accomplished with the use of [employer] voice recognition software, prone to medical misidentifications [...] Dictation was accomplished with the use of [employer] voice recognition software, prone to medical misidentifications [...] log exercise and discussed fitness Apps like [employer] which can help keep log off calories [...] Dictation was accomplished with the use of [employer] voice recognition software, prone to medical misidentifications [...] with < 0.2% episodes of apnea. Sees [facility] sleep medicine. Overnight Pulse oximeter ordered. [...] Dictation was accomplished with the use of [employer] voice recognition software, prone to medical misidentifications [...] log exercise and discussed fitness Apps like [employer] which can help keep log off calories [...] Dictation was accomplished with the use of [employer] voice recognition software, prone to medical misidentifications [...] with < 0.2% episodes of apnea. Sees [facility] sleep medicine. Overnight Pulse oximeter ordered. [...] Dictation was accomplished with the use of [employer] voice recognition software, prone to medical misidentifications [...] Dictation was accomplished with the use of [employer] voice recognition software, prone to medical misidentifications [...] log exercise and discussed fitness Apps like [employer] which can help keep log off calories [...] Dictation was accomplished with the use of [employer] voice recognition software, prone to medical misidentifications [...] log exercise and discussed fitness Apps like [employer] which can help keep log off calories [...] Dictation was accomplished with the use of [employer] voice recognition software, prone to medical misidentifications [...] log exercise and discussed fitness Apps like [employer] which can help keep log off calories [...] Dictation was accomplished with the use of [employer] voice recognition software, prone to medical misidentifications [...] log exercise and discussed fitness Apps like [employer] which can help keep log off calories [...] Dictation was accomplished with the use of [employer] voice recognition software, prone to medical misidentifications [...] Pending Test Test Name Order Date Microalb/Creat Shala, [place] Ur 8 Lipid Panel 10/27/2017 Comp. Metabolic Panel (14) 10/27/2017 CBC 10/27/2017 X ray : LS Spine 05/29/2023 Ultrasound : Artery Doppler Low Ext Righ t 05/20/2023 EKG 10/15/2021 25OH VITAMIN D 10/15/2021 AST (SGOT) 11/21/2021 CBC (COMPLETE BLOOD COUNT) 10/15/2021 CBC (COMPLETE BLOOD COUNT) 04/27/2019 CBC (COMPLETE BLOOD COUNT) 09/01/2018 CBC (COMPLETE BLOOD COUNT) 06/02/2020 CBC (COMPLETE BLOOD COUNT) 11/02/2019 CBC (COMPLETE BLOOD COUNT) 05/21/2021 COMPREHENSIVE METABOLIC PANEL 05/21/2021 COMPREHENSIVE METABOLIC PANEL 11/02/2019 COMPREHENSIVE METABOLIC PANEL 06/02/2020 COMPREHENSIVE METABOLIC PANEL 04/27/2019 COMPREHENSIVE METABOLIC PANEL 09/01/2018 COMPREHENSIVE METABOLIC PANEL 10/15/2021 HEMOGLOBIN A1C 04/27/2019 HEMOGLOBIN A1C 10/15/2021 HEMOGLOBIN A1C 11/26/2022 HEMOGLOBIN A1C 10/27/2017 HEMOGLOBIN A1C 11/02/2019 HEMOGLOBIN A1C 05/21/2021 HEMOGLOBIN A1C 06/02/2020 LIPID PANEL 05/21/2021 LIPID PANEL 11/02/2019 LIPID PANEL 06/02/2020 LIPID PANEL 09/01/2018 LIPID PANEL 04/27/2019 LIPID PANEL 10/15/2021 PSA, SCREEN 10/15/2021 TSH 10/15/2021 URINALYSIS, COMPLETE 04/27/2019 URINALYSIS, COMPLETE 09/01/2018 URINALYSIS, COMPLETE 06/02/2020 URINALYSIS, COMPLETE 11/02/2019 AST/SGOT 11/21/2021 US Extrem Non-Vascular RT 05/15/2023 PT/INR 04/27/2019 LIPID PANEL, STANDARD 11/14/2023 LIPID PANEL, STANDARD 04/06/2024 LIPID PANEL, STANDARD 04/27/2025 HEPATITIS PANEL, ACUTE W/REFLEX TO CONFI RMATION 11/21/2021 COMPREHENSIVE METABOLIC PANEL 04/27/2025 COMPREHENSIVE METABOLIC PANEL 04/06/2024 COMPREHENSIVE METABOLIC PANEL 11/14/2023 COMPREHENSIVE METABOLIC PANEL 02/22/2025 COMPREHENSIVE METABOLIC PANEL 02/19/2024 CBC (INCLUDES DIFF/PLT) 02/19/2024 CBC (INCLUDES DIFF/PLT) 02/22/2025 CBC (INCLUDES DIFF/PLT) 11/14/2023 CBC (INCLUDES DIFF/PLT) 04/06/2024 CBC (INCLUDES DIFF/PLT) 04/27/2025 URINALYSIS, COMPLETE 11/14/2023 HEMOGLOBIN A1c 11/14/2023 HEMOGLOBIN A1c 02/19/2024 VITAMIN B12 11/14/2023 PSA (FREE AND TOTAL) 11/14/2023 PSA (FREE AND TOTAL) 04/27/2025 VITAMIN D,25-OH,TOTAL,IA 11/14/2023 COMPLETE URINALYSIS 10/15/2021 COMPLETE URINALYSIS 05/21/2021 Lumbar Spine 2 or 3 Views 03/02/2024 Hemoglobin [id number] 04/27/2025 Future Test Test Name Order Date CBC (COMPLETE BLOOD COUNT) 05/05/2021 COMPREHENSIVE METABOLIC PANEL 05/05/2021 HEMOGLOBIN A1C 05/05/2021 COMPREHENSIVE METABOLIC PANEL 12/04/2022 HEMOGLOBIN A1C 12/04/2022 URINALYSIS W/REFLEX CULTURE 12/04/2022 Next Appt Details Provider Name:JUMANA INFANTE, 06/30/2025 10:30:00 AM, [address], [place], [address], Insurance Providers Payer Name Payer Address Payer Phone Subscriber Number Group Number Insured Name Patient Relationship to Insured Coverage Start Date Coverage End Date Medicare Part B J14 [address] [place] [id number] [phone] [id number] IRVIN SUAZO Self - patient is the insured MED[employer] [address] [place] [address] [id number] IRVIN SUAZO Self - patient is the [...] Surgery Date(Month/Year) open heart 2007 IVC filter 2016 hernia repair AVR goal INR 2.5-3.5 [facility] Jul 2024
--- OUTSIDE RECORDS SUMMARY | 2025-06-14 12:06 | XMS_ITS | Encounter Summary ---
Author Organization [facility] Address [address] [place] [id number] Phone Care Team Providers Care Database Administration Manager Name Role Phone Osito Infante MD Primary Care Provider Encounter Details Date Type Department Care Team (Late st Contact Info) Description 01/09/2023 Procedure Pass [facility] [address] [place] [address] Social History Tobacco Use Types Packs/Day Years [...] on filedocumented in this encounter Care Teams Database Administration Manager Relationship Specialty Start Date End Date Osito Infante MD [address] [place] [id number] PCP - General Internal Medicine 11/29/22 documented as of this encounter Additional Source Comments The information contained in this document represents components of the legal health record. It is not the complete legal health record.[facility]
--- OUTSIDE RECORDS SUMMARY | 2025-06-14 12:06 | XMS_ITS | Clinical Summary ---
Author Organization [address] Address [address] [place] [address] Phone Care Team Providers Care Injection Molding Machine Offbearer Name Role Phone Espinoza Infante MD Primary Care Provider [phone] Allergies Active Allergy Reactions Criticality Noted Date Comments Enoxaparin GI bleeding,Other,Rash High 12/12/2015 Levetiracetam 08/21/2018 Morphine Hives High 11/29/2015 Penicillins 10/11/2024 Medications multivitamin with minerals (CENTRUM/CERTAV IT) 18-400 [...] tartrate (LOPRESSOR) 25 mg tablet Take 0.5 tablets (12.5 mg total) by mouth 2 (two) times a day. 9 Active omega-3 acid ethyl esters (LOVAZA) 1 gram capsule 1 capsule (1,000 mg total) 1 (one) time each day. 0 Active simvastatin (ZOCOR) 40 mg tablet 1 tablet (40 mg total) at bedtime. 7 Active tamsulosin (FLOMAX) 0.4 mg 24 hr capsule 1 capsule (0.4 mg total) 2 (two) times a day. 0 Active warfarin (COUMADIN) 2.5 mg [...] BY MOUTH TWICE DAILY 0 Active omega 9-ojo-txd-fish oil (Fish OiL) 1,000 (120-180) mg capsule Take 1 capsule (1,000 mg total) by mouth 2 (two) times a day. 7 Active azaTHIOprine (IMURAN) 50 mg tablet Take 1 tablet (50 mg total) by mouth 2 (two) times a day. 270 each 3 5 Active Additional Information Patient taking differently: 150 mgoralDaily, Reported on 06/07/2025 nitrofurantoin, macrocrystal-mo nohydrate, (MACROBID) 100 mg capsule Take 1 capsule (100 mg total) by mouth every other day. 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[facility] V24, [facility] V28) 12/01/2023 Factor V Leiden ([facility] V24) 12/01/2023 ARGENIS (obstructive sleep apnea) 12/01/2023 Seizures ([facility] [place], [facility] V28) 12/01/2023 Allergic rhinitis 07/21/2019 Autoimmune hepatitis ([facility] V24, [facility] V28) 07/21/2019 Overview (12/01/2023): 2012 BPH (benign prostatic hyperplasia) 07/21/2019 CAD (coronary artery disease) 07/21/2019 Overview (12/01/2023): CABG Carotid artery stenosis 07/21/2019 Overview (12/01/2023): Bilateral Cataract 07/21/2019 Chronic venous insufficiency 07/21/2019 Hyperlipidemia 07/21/2019 Hypertension 07/21/2019 Interstitial lung disease ([facility] V24, [facility] V28) 07/21/2019 Nephrolithiasis 07/21/2019 Type 2 diabetes mellitus ([facility] V24, [facility] V 28) 07/21/2019 DM (diabetes mellitus), type 2 with peripheral vascular complications ([facility] V24, [facility] V28) 07/21/2019 DM (diabetes mellitus), type 2 with renal complications ([facility] V24, [facility] V28) 07/21/2019 Type 2 diabetes mellitus wit h cataract ([facility] V24, [facility] V28) 07/21/2019 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 Aneurysm of ascending aorta ([facility] V24) 2016 Iron deficiency anemia 12/12/2015 Encounters Date Type Department Care Team Description 06/07/2025 10:00 AM EDT Office Visit Gastroenterology - [place] [address] [place] [address] Henry Morris MD Autoimmune hepatitis ([facility] V24, [facility] V28) (Primary Dx) from Last 3 Months [...] Medical History Date Comments Factor V Leiden ([facility] V24) DX :Factor V Leiden ([facility]) Seizures ([facility] V24, [facility] V28) DX:Seizures ([facility]) DVT (deep venous thrombosis) ([facility] V24, [facility] V28) DX:DVT (deep venous thrombos is) ([facility]) 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, [facility]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 ([facility]) Aortic valve replaced DX:Aortic valve replaced ARGENIS (obstructive sleep apnea) DX :ARGENIS (obstructive sleep apnea) BPH (benign prostatic hyperplasia) 07/21/2019 DX:BPH (benign prostatic hyperplasia) CKD (chronic kidney disease) stage 3, GFR 30-59 ml/min ([facility] V24, [facility] V28) DX:CKD (chronic kidney disea se) stage 3, GFR 30-59 ml/min ([facility]) Hyperlipidemia 07/21/2019 DX:Hyperlipidemi a Hypertension 07/21/2019 DX:Hypertension CAD (coronary artery disease) 07/21/2019 DX :CAD (coronary artery disease); COMMENT: CABG DM (diabetes mellitus), type 2 with renal complications ([facility] V24, [facility] V28) 07/21/2019 DX:DM (diabetes mellitus), t ype 2 with renal complications (HCC) Nephrolithiasis 07/21/2019 DX:Nephrolithias is Autoimmune hepatitis ([facility] V24, [facility] V28) 07/21/2019 DX:Autoimmune hepatitis (HCC ) Interstitial lung disease ([facility] V24, [facility] V28) 07/21/2019 DX:Interstitial lung disease (HCC) Allergic rhinitis 07/21/2019 DX:Allergic rh initis Cataract 07/21/2019 DX:Cataract Type 2 diabetes mellitus wit h cataract ([facility] V24, [facility] V28) 07/21/2019 DX:Type 2 diabetes mellitus with cataract (HCC) Chronic venous insufficiency 07/21/2019 DX: Chronic venous insufficiency DM (diabetes mellitus), type 2 with peripheral vascular complications ([facility] V24, [facility] V28) 07/21/2019 DX:DM (diabetes mellitus), type 2 with peripheral vascular complications (HCC) Carotid artery stenosis 07/21/2019 DX:Carot id artery stenosis; COMMENT: Bilateral History of DVT (deep vein thrombosis) 08/21/2018 DX:History of DVT (deep vein thrombosis) 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:Post -thrombotic syndrome Aneurysm of ascending aorta ([facility] V24) 07/28/2017 DX:Aneurysm of ascending aor ta [...] Sign Reading Time Taken Comments Blood Pressure 128/70 06/07/2025 9:48 AM EDT Pulse 76 06/07/2025 9:48 AM EDT Temperature - - Respiratory Rate - - Oxygen Saturation - - Inhaled Oxygen Concentration - - Weight 93 kg (205 lb) 06/07/2025 9:48 AM EDT Height 168.9 cm (5' 6.5 ) 06/07/2025 9:48 AM EDT Body Mass Index 32.59 06/07/2025 9:48 AM EDT Plan of Treatment Health Maintenance [...] Diagnosis Comments CBC WITH AUTO DIFFERENTIAL Routine 05/31/2025 11:21 AM EDT Autoimmune hepatitis ([facility] V24, [facility] V28) CBC AND DIFFERENTIAL Routine 05/31/2025 11:21 AM EDT Autoimmune hepatitis ([facility] V24, [facility] V28) SEDIMENTATION RATE Routine 05/31/2025 11 :21 AM EDT Autoimmune hepatitis ([facility] V24, [facility] V28) C REACTIVE PROTEIN, HIGH SENSITIVITY Routine 05/31/2025 11:21 AM EDT Autoimmune hepatitis ([facility] V24, [facility] V28) HEPATIC FUNCTION PANEL Routine 05/31/2025 11:21 AM EDT Autoimmune hepatitis ([facility] V24, [facility] V28) COMPREHENSIVE METABOLIC PANEL Routine 02/23/2025 8:50 AM EDT Routine general medical examination at a [facility] care facility Diabetic complication ([facility] V24, [facility] V28) Hyperlipemia MICROALBUMIN CREATININE URINE RATIO Routine 01/25/2025 3:12 PM EDT Chronic kidney disease (CKD) stage G3b/A1, moderately decreased glomerular filtration rate (GFR) between 30-44 mL/min/1.73 square meter and albuminuria creatinine ratio les* ([facility] V24, [facility] V28) Renal osteodystrophy from Last 3 Months or Most Recently Relevant to Health Maintenance Results * (ABNORMAL) CBC auto differential (05/31/2025 11:21 AM EDT) [facility] WBC 7.7 4.8 - 10.8 K/mcL LAB [facility] RBC 4.90 4.50 - 5.50 M/mcL LAB HEMETOLOG[facility] METHOD 05/31/2025 2:[facility] Hemoglobin 15.4 13.5 - 17.5 g/dL LAB HEMETOLOGY METHOD 05/31/2025 2:22 PM [facility] Hematocrit 47.1 42.0 - 54.0 % LAB HEMETOLOGY METHOD 05/31/2025 2:22 PM [facility] MCV 95.7 79.0 - 98.0 FL LAB HEMETOLOGY METHOD 05/31/2025 2:[facility] MCH 31.3 27.0 - 32.0 pcg LAB HEMETOLOGY METHOD 05/31/2025 2:22 PM [facility] MCHC 32.7 32.0 - 37.0 g/dL LAB HEMETOLOGY METHOD 05/31/2025 2:22 PM [facility] RDW 14.3 11.0 - 15.0 % LAB HEMETOLOGY METHOD 05/31/2025 2:22 PM [facility] Platelets 170 130 - 400 K/mcL LAB HEMETOLOGY METHOD 05/31/2025 2:22 PM [facility] MPV 10.7 7.0 - 11.0 FL LAB HEMETOLOGY METHOD 05/31/2025 2:22 PM [facility] NRBC 0.0 <1.0 % LAB HEMETOLOGY METHOD 05/31/2025 2:[facility] NRBC Absolute 0.00 <0.10 K/mcL LAB HEMETOLOGY METHOD 05/31/2025 2:22 PM [facility] Neutrophils Relative 65.2 % LAB HEMETOLOGY METHOD 05/31/2025 2:22 PM [facility] Lymphocytes Relative 22.6 % LAB HEMETOLOGY METHOD 05/31/2025 2:22 PM [facility] Monocytes Relative 8.0 % LAB HEMETOLOGY METHOD 05/31/2025 2:22 PM [facility] Eosinophils Relative 3.1 % LAB HEMETOLOGY METHOD 05/31/2025 2:22 PM [facility] Basophils Relative 0.6 % LAB HEMETOLOGY METHOD 05/31/2025 2:22 PM [facility] Immature Granulocytes Relative 0.5 % LAB HEMETOLOGY METHOD 05/31/2025 2:22 PM [facility] Neutrophils Absolute 5.03 1.50 - 7.00 K/mcL LAB HEMETOLOGY METHOD 05/31/2025 2:22 PM [facility] Lymphocytes Absolute 1.75 1.00 - 5.00 K/mcL LAB HEMETOLOGY METHOD 05/31/2025 2:22 PM [facility] Monocytes Absolute 0.62 0.20 - 1.00 K/mcL LAB HEMETOLOGY METHOD 05/31/2025 2:22 PM [facility] Eosinophils Absolute 0.24 0.00 - 0.50 K/mcL LAB HEMETOLOGY METHOD 05/31/2025 2:22 PM [facility] Basophils Absolute 0.05 0.00 - 0.20 K/mcL LAB HEMETOLOGY METHOD 05/31/2025 2:22 PM [facility] Immature Granulocytes Absolute 0.04(H) 0.00 - 0.03 K/mcL LAB HEMETOLOGY METHOD 05/31/2025 2:22 PM EDT [facility] Blood Venous blood specimen / Unknown Venipuncture / Unknown 05/31/2025 11:21 AM EDT 05/31/2025 11:21 AM EDT us Henry Morris MD LAB BLOOD ORDERABLES Final Resul t Performing Organization Address [facility] [place]/[facility]/ZIP Co de Phone Number [facility] [address] [place] [address], [place] [phone] * (ABNORMAL) Sedimentation rate (05/31/2025 11:21 AM EDT) Pathologist [facility] Sed Rate 37(H) 0 - 20 mm/hr LAB HEMETOLOGY METHOD 05/31/2025 2:37 PM EDT [facility] Blood Venous blood specimen / Unknown Venipuncture / Unknown 05/31/2025 11:21 AM EDT 05/31/2025 11:21 AM EDT us Henry Morris MD LAB BLOOD ORDERABLES Final Resul t Performing Organization Address [facility] [place]/[facility] de Phone Number [facility] [address] [place] [address], [place] [phone] * C reactive protein, high sensitivity (05/31/2025 11:21 AM EDT) Pathologist [facility] CRP, High Sensitivity 0.85 mg/L LAB CHEMISTRY METHOD 05/31/2025 4:19 PM EDT [facility] Comment: Cardio CRP Relative Risk Categories Low <1.0 mg/L Average 1.0 - 3.0 mg/L High >3.0 mg/L Levels >10.0 mg/L should be ignored and repeated when the patient is stable and infection or inflammation is ruled out. Blood Venous blood specimen / Unknown Venipuncture / Unknown 05/31/2025 11:21 AM EDT 05/31/2025 11:21 AM EDT us Henry Morris MD LAB BLOOD ORDERABLES Final Resul t Performing Organization Address City/[facility]/ZIP Co de Phone Number [facility] [address] [place] [address], [place] [phone] * Hepatic function panel (05/31/2025 11:21 AM EDT) Total Protein 7.2 6.0 - 8.0 g/dL LAB CHEMISTRY METHOD 05/31/2025 4:24 PM EDT [facility] Albumin 3.6 3.2 - 5.0 g/dL LAB CHEMISTRY METHOD 05/31/2025 4:24 PM EDT [facility] Total Bilirubin 0.5 0.0 - 1.4 mg/dL LAB CHEMISTRY METHOD 05/31/2025 4:24 PM [facility] Bilirubin, Direct 0.2 0.0 - 0.3 mg/dL LAB CHEMISTRY METHOD 05/31/2025 4:24 PM EDT [facility] Bilirubin, Indirect 0.3 0.0 - 1.1 mg/dL LAB CHEMISTRY METHOD 05/31/2025 4:24 PM T [facility] ALT (SGPT) 16 10 - 60 unit/L LAB CHEMISTRY METHOD 05/31/2025 4:24 PM [facility] AST (SGOT) 24 10 - 42 unit/L LAB CHEMISTRY METHOD 05/31/2025 4:24 PM EDT [facility] Alkaline Phosphatase 60 42 - 121 unit/L LAB CHEMISTRY METHOD 05/31/2025 4:24 PM EDT [facility] Blood Venous blood specimen / Unknown Venipuncture / Unknown 05/31/2025 11:21 AM EDT 05/31/2025 11:21 AM EDT us Henry Morris MD LAB BLOOD ORDERABLES Final Resul t Performing Organization Address City/[facility]/ZIP Co de Phone Number [facility] [address] [place] [address], [place] [phone] * (ABNORMAL) Comprehensive metabolic panel (02/23/2025 8:50 AM EDT) [facility] Sodium 141 133 - 145 mmol/L LAB CHEMISTRY METHOD 02/23/2025 10:54 AM [facility] Potassium 4.5 3.5 - 5.5 mmol/L LAB CHEMISTRY METHOD 02/23/2025 10:54 AM [facility] Chloride 108 96 - 110 mmol/L LAB CHEMISTRY METHOD 02/23/2025 10:54 AM [facility] CO2 29 21 - 32 mmol/L LAB CHEMISTRY METHOD 02/23/2025 10:54 AM [facility] Anion Gap 4 3 - 11 LAB CHEMISTRY METHOD 02/23/2025 10:54 AM [facility] Glucose 106(H) 70 - 100 mg/dL LAB CHEMISTRY METHOD 02/23/2025 10:54 AM [facility] BUN 32(H) 5 - 25 mg/dL LAB CHEMISTRY METHOD 02/23/2025 10:54 AM [facility] Creatinine 1.71(H) 0.70 - 1.30 mg/dL LAB CHEMISTRY METHOD 02/23/2025 10:54 AM [facility] eGFR 39(L) >=60 mL/min/1. 73m2 LAB CHEMISTRY METHOD 02/23/2025 10:54 AM [facility] Comment:Calculation based on the Chronic Kidney Disease Epidemiology Collaboration (CKD-EPI) equation refit without adjustment for race. BUN/Creatinine Ratio 18.7 LAB CHEMISTRY METHOD 02/23/2025 10:54 AM [facility] Calcium 9.7 8.5 - 10.5 mg/dL LAB CHEMISTRY METHOD 02/23/2025 10:54 AM [facility] AST (SGOT) 30 10 - 42 unit/L LAB CHEMISTRY METHOD 02/23/2025 10:54 AM EDT [facility] ALT (SGPT) 20 10 - 60 unit/L LAB CHEMISTRY METHOD 02/23/2025 10:54 AM EDT [facility] Alkaline Phosphatase 69 42 - 121 unit/L LAB CHEMISTRY METHOD 02/23/2025 10:54 AM EDT [facility] Total Protein 7.3 6.0 - 8.0 g/dL LAB CHEMISTRY METHOD 02/23/2025 10:54 AM EDT [facility] Albumin 3.4 3.2 - 5.0 g/dL LAB CHEMISTRY METHOD 02/23/2025 10:54 AM EDT [facility] Total Bilirubin 0.8 0.0 - 1.4 mg/dL LAB CHEMISTRY METHOD 02/23/2025 10:54 AM EDT [facility] Blood Venous blood specimen / Unknown Venipuncture / Unknown 02/23/2025 8:50 AM EDT 02/23/2025 10:54 AM EDT us Stella MALDONADO LAB BLOOD ORDERABLES Final Resul t [facility] [address] [place] [address], * (ABNORMAL) Microalbumin creatinine urine ratio (01/25/2025 3:12 PM EDT) Creatinine, Urine 105.0 mg/dL LAB CHEMISTRY METHOD 01/25/2025 8:46 PM EDT [facility] Microalb, Ur 868.0(H) 0.0 - 29.0 mg/L LAB CHEMISTRY METHOD 01/25/2025 8:46 PM EDT [facility] Microalb/Crea t Ratio 827(H) <30 mg/g creat LAB CHEMISTRY METHOD 01/25/2025 8:46 PM EDT [facility] Urine Urine specimen obtained by clean catch procedure / Unknown Non-blood Collection / Unknown 01/25/2025 3:12 PM EDT 01/25/2025 4:11 PM EDT Joaquin Guaman MD LAB URINE ORDERABLES Final Re sult [facility] [address] [place] [address], from Last 3 Months or Most Recently Relevant to Health Maintenance Insurance MEDICARE [facility] Advance Directives Documents on File Type Date Recorded Patient Graphics Coordinator Expl anation Health Care Decision (hx) 01/06/2012 AD PEREZ DIRECTIVE Health Care Decision (hx) 01/06/2012 AD PEREZ DIRECTIVE Health Care Decision (hx) 01/06/2012 AD PEREZ DIRECTIVE Care Teams Injection Molding Machine Offbearer Relationship Specialty Start Date End Date Espinoza Infante MD [address] [place] [phone] PCP - General Internal Medicine 10/18/24
--- OUTSIDE RECORDS SUMMARY | 2025-06-14 12:06 | XMS_ITS | Clinical Summary ---
Author Organization [facility] Address [address] [address] Phone Care Team Providers Care Instructor Warper Name Role Phone Osito Infante MD Primary [...] VACCINE (1 - 1-dose 75+ series) 2018 INFLUENZA VACCINE (#1) 2025 , 06/21/2021, 06/12/2020, Additional history exists COVID-19 VACCINE ( season) 2025 06/10/2022, 12/31/2021, 05/21/2021, Additional history exists HEPATITIS [...] this topic Medical Devices Implanted Type Area Respiratory Medicine Physician Device Identifier Shelf Expiration Date Model / Serial / Lot Filter Filter Leg Prosthetic Valve Prosthetic Valve Aorta Insurance CROSS MEDEX SUPPLEMENT MEDICARE PART A & B MEDICARE PART A & B be2 MEDEX SUPPLEMENT MEDICARE PART A & B be2 MEDEX SUPPLEMENT MEDICARE PART A & B be2 MEDEX SUPPLEMENT MEDICARE PART A & B MEDEX SUPPLEMENT MEDICARE PART A & B Care Teams Instructor Warper Relationship Specialty Start Date End Date Osito Infante MD [address] [place] [phone] (Work) PCP - General Internal Medicine 11/29/22 Additional Source Comments The information contained in this document represents components of the legal health record. It is not the complete legal health record.[facility]
--- OUTSIDE RECORDS SUMMARY | 2025-06-14 12:06 | XMS_ITS | Clinical Summary ---
Author Organization [facility] Address [address] [place] [phone] Phone Care Team Providers Care [employer] Instructor Name Role Phone Stella Lemus Primary Care Provider [phone] Allergies Active Allergy Reactions Criticality Noted Date [...] Visit [facility] [address] [phone] Juliann Byrd ARNP [address] [phone] Health Maintenance Due Date Last Done Comments Hepatitis B Vaccine (1 of 3 - Risk 3-dose series) 2003 Influenza Vaccine (#1) 2025 , 07/23/2015, 07/13/2015, Additional history exists Pneumococcal Vaccine: 50+ Years Completed 02/17/2015, 07/06/2010, 09/22/2007 Pneumococcal Vaccine: Peds ( 0 to 5 Years) and At-Risk Patients (6 to 49 Years) Discontinued 02/17/2015, 07/06/2010, 09/22/2007 Insurance [facility] Medicare [facility] Medicare Care Teams [employer] Instructor Relationship Specialty Start Date End Date Stella Lemus [address] [place] [address] PCP - General 08/05/23
== END 2025-06-14 10:31 | disposition home or self-care (01) ==
LOC: HO.ACS 10:01
PROVIDERS: PCP Physician Assistant Medical; Visit Provider Internal Medicine Medical Oncology
DX: Z79.01 Long term (current) use of anticoagulants (principal)

== ENCOUNTER → 2025-06-14 10:01 | Outpatient (BNVA) | payer MEDICARE, SELFPAY | PROVIDERS: PCP Physician Assistant Medical; Visit Provider Internal Medicine Medical Oncology | DX: Z51.81 Encounter for therapeutic drug level monitoring (principal); Z79.01 Long term (current) use of anticoagulants | CPT/HCPCS: 85610; 99211 ==

== ENCOUNTER 2025-06-28 10:09 | Outpatient (AMB) | payer MEDICARE, SELFPAY ==
[2025-06-28 10:26] LABS: Prothrombin Time Whole Bld POC 39.5 sec (11.1-13.5); ~PT, ~INR - Anti Coag Clinic 3.3 (0.9-1.1)
--- NOTE | 2025-06-28 10:29 | MHC.OFFVISCO ---
Intake Intake Visit Reasons: Anticoagulation Allergies lovenox Allergy (Severe, Uncoded 06/28/25 10:21) bleeding morphine Allergy (Severe, Uncoded 06/28/25 10:21) Rash kepra Adverse Reaction (Severe, Uncoded 06/28/25 10:21) Drowsy Medication List - Last Reconciled 06/28/25 by Deepika Payne, RN amoxicillin 2,000 mg PO ONCE PRN azathioprine 150 mg PO DAILY calcium carbonate-vitamin D3 600 mg-10 mcg (400 unit) caps PO DAILY cholecalciferol (vitamin D3) 25 mcg PO DAILY finasteride 5 mg PO DAILY gabapentin 600 mg PO BID metoprolol tartrate 12.5 mg PO BID multivitamin 1 tab PO DAILY nitrofurantoin monohyd/m-cryst 100 mg caps PO omega 4-iuh-ziq-fish oil 1,000 (120-180) mg (Fish Oil) 1 cap PO BID simvastatin 40 mg PO BEDTIME tamsulosin 0.8 mg PO DAILY triamcinolone acetonide 0.1% 1 appl topical DAILY PRN warfarin 2.5 mg See Protocol PO DAILY Nursing Note INR: 3.3 in therapeutic range of 2-3 Medications and supplements reviewed No changes in health, diet, medications, or supplements, Denies any signs and symptoms of bleeding or bruising or clotting. Bleeding, bruising, clotting discussed Nutritional guidance given Dose: 5mg X 5 days and 7.5mg X 2 days (Mon & Thurs) F/U INR: 3 weeks Patient verbalizes understanding of instructions given Anti-Coag Initial Assessment Social Hx Patient Tobacco Use Status: Never used Tobacco alcohol intake: current Alcohol intake frequency: holidays/special occasions only Cardiovascular Hx: HTN Lung Disease HX: DVT/PE and Other Endocrine Hx: Diabetes and Autoimmune disorders Blood Disorder Hx: Hyperlipidemia and Hepatitis Hx: Kidney Disease and Prostate Neurological Hx: Epilepsy/Seizures and Stroke/TIA Cancer HX: No Psych. Illness/Depression: No Coding Level of Care Code Est Patient Level 1 Diagnoses Current use of anticoagulant therapy Z79.01 Assessment & Plan Assessment & Plan (1) Current use of anticoagulant therapy: Code(s): Z79.01 - intermediate project manager (current) use of anticoagulants Category: Medical
--- OUTSIDE RECORDS SUMMARY | 2025-06-28 12:01 | XMS_ITS | Clinical Summary ---
Author Organization [facility] Address [address] [address] Phone Care Team Providers Care Phthalic Acid Purifier Name Role Phone Osito Infante MD Primary [...] this topic Medical Devices Implanted Type Area Fashion Photographer Device Identifier Shelf Expiration Date Model / Serial / Lot Filter Filter Leg Prosthetic Valve Prosthetic Valve Aorta Insurance [employer] SUPPLEMENT MEDICARE PART A & B MEDICARE PART A & B [employer] SUPPLEMENT MEDICARE PART A & B Member Subscriber Plan / Payer ( fective 2011-Present) Name:Sreekanth Garcia Member ID:[id number] Relation to Subscriber:Self Name:Sreekanth Garcia Subscriber ID:[id number] Payer ID:[id number] Group ID:Not on file Type:Medicare Address: [employer] [address] [place] [address] [employer] SUPPLEMENT MEDICARE PART A & B Member Subscriber Plan / Payer ( fective 2011-Present) Name:Sreekanth Garcia Member ID:[id number] Relation to Subscriber:Self Name:Sreekanth Garcia Subscriber ID:[id number] Payer ID:[id number] Group ID:Not on file Type:Medicare Address: [employer] [address] [place] [address] [employer] SUPPLEMENT MEDICARE PART A & B Member Subscriber Plan / Payer (Ef fective 2011-Present) Name:Sreekanth Garcia Member ID:[id number] Relation to Subscriber:Self Name:Sreekanth Garcia Subscriber ID:[id number] Payer ID:[id number] Group ID:Not on file Type:Medicare Address: [employer] [address] [place] [address] MEDEX SUPPLEMENT MEDICARE PART A & B Member Subscriber Plan / Payer ( fective 2011-Present) Name:Sreekanth Garcia Member ID:[id number] Relation to Subscriber:Self Name:Sreekanth Garcia Subscriber ID:[id number] Payer ID:[id number] Group ID:Not on file Type:Medicare Address: [employer] [address] [place] [address] Care Teams Phthalic Acid Purifier Relationship Specialty Start Date End Date Osito Infante MD [address] [place] [phone] (Work) PCP - General Internal Medicine 11/29/22 Additional Source Comments The information contained in this document represents components of the legal health record. It is not the complete legal health record.[facility]
--- OUTSIDE RECORDS SUMMARY | 2025-06-28 12:01 | XMS_ITS | Encounter Summary ---
Author Organization [facility] Address [address] [place] [phone] Phone Care Team Providers Care Fountain Clerk Name Role Phone Osito Infante MD Primary Care Provider Encounter Details Date Type Department Care Team (Late st Contact Info) Description 01/09/2023 Procedure Pass [facility] [address] [place] [address] Social History Tobacco Use Types Packs/Day Years [...] on filedocumented in this encounter Care Teams Fountain Clerk Relationship Specialty Start Date End Date Osito Infante MD [address] [place] [id number] PCP - General Internal Medicine 11/29/22 documented as of this encounter Additional Source Comments The information contained in this document represents components of the legal health record. It is not the complete legal health record.[facility]
--- OUTSIDE RECORDS SUMMARY | 2025-06-28 12:01 | XMS_ITS | Patient Health Record ---
Author Organization [facility] Address [address] [place] [address] Care Team Providers Care Interior Plant Caretaker Name Role Phone CHRISTINA WALTERS Unavailable [phone] JUMANA INFANTE Unavailable [phone] Allergies Allergen (clinical drug ingredient) Drug/Non Drug Allergy documented on EMR Reaction Allergy Type Onset Date Status morphine morphine (uncoded) Unknown Allergy A ctive enoxaparin Lovenox BLEEDS Drug Allergy Active Results Component Value Reference Range Notes PROTEIN AND CREATININE WITH RATIO, URINE Reviewed date:07/27/2024 02:18:26 PM Interpretation: Performing Lab: Notes/Report: Protein, Urine 106 Prot/Creat, Ur 1.01 <=0.20 mg/mg creat Creatinine, Urine 105.0 URINALYSIS MICROSCOPIC ONLY Reviewed date:07/27/2024 02:18:39 PM Interpretation: Performing Lab: Notes/Report: RBC, Urine 2.0 0-4 /HPF WBC, Urine 30.0 0-4 /HPF Squamous Epithelial, Urine 10 0-60 /LPF Bacteria, Urine Moderate Negative /HPF Hyaline Casts, Urine 1.0 0-3 /LPF PARATHYROID HORMONE INTACT Reviewed date:07/27/2024 01:28:46 PM [...] <1.0 % NRBC Absolute 0.00 <0.10 K/mcL MAGNESIUM Reviewed date:07/27/2024 01:28:46 PM Interpretation: Performing Lab: Notes/Report: Magnesium 2.1 1.9-2.6 mg/dL VITAMIN D 25 HYDROXY Reviewed date:07/27/2024 01:28:46 PM Interpretation: Performing Lab: Notes/Report: Vit D, 25-Hydroxy 57.0 30.0-80.0 ng/mL COMPREHENSIVE METABOLIC PANE L Reviewed date:02/24/2025 08:00:24 [...] K/mcL Immature Granulocytes Absolute 0.03 0.00-0.03 K/mcL Reason For Referral No Information Medications Medication [...] DAILY; Duration: 0 Active OneTouch Delica Plus [id number] - USE DIRECTED TO TEST BLOOD GLUCOSE [...] mo smokes , second hand sm om smokes , second hand sm mo smokes , second hand sm mo smokes , second hand sm mo smokes , second hand sm mo smokes , second hand sm mo smokes , second hand sm mo Problems Problem Type SNOMED Code ICD Code Onset Dates Problem Status W/U Status Risk Notes Problem Anemia in chronic kidney disease (670095484) 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) Active confirmed Problem Diabetic renal disease (025685136) Type 2 diabetes mellitus with diabetic chronic kidney disease (E11.22) Active confirmed Problem Hyperglycemia due to type 2 diabetes mellitus (901221167103738) Type 2 diabetes mellitus with hyperglycemia (E11.65) Active confirmed Problem Disorder due to type 2 diabetes mellitus (278773091) Type 2 diabetes mellitus with unspecified complications (E11.8) Active confirmed Problem Type II diabetes mellitus without complication (984340308) Type 2 diabetes mellitus without complications (E11.9) Active confirmed Problem Vitamin D deficiency (26112088) Vitamin D deficiency, unspecified (E55.9) Active confirmed Problem 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 Problem Hyperlipidemia (09761569) Hyperlipidemia, unspecified (E78.5) Active confirmed Problem Essential hypertension (15516633) Essential (primary) hypertension (I10) Active confirmed Problem Cerebral infarction (382862928) Cerebral infarction, unspecified (I63.9) Active confirmed Problem Autoimmune hepatitis (857671624) Autoimmune hepatitis (K75.4) Active confirmed Problem Chronic kidney disease stage 3 (disorder) (837566361) Chronic kidney disease, stage 3 (moderate) (N18.3) Active confirmed Problem Long-term current us e of anticoagulant (638494202) buttermaker (current) use of anticoagulants (Z79.01) Active confirmed Problem Benign prostatic hypertrophy without outflow obstruction (707852250) Benign prostatic hyperplasia without lower urinary tract symptoms (N40.0) Active confirmed Problem Backache (177114143) Back pain, unspecified back location, unspecified back pain laterality, unspecified chronicity (M54.9) Active confirmed Problem Adult health examination (579652531) Adult general medical exam (Z00.00) Active confirmed Problem Hypothyroidism (67712549) Hypothyroidism, unspecified type (E03.9) Active confirmed Problem Annual health maintenance examination (39592476) Annual physical exam (Z00.00) Active confirmed Problem Vitamin D deficiency (25321939) Vitamin D deficiency (E55.9) Active confirmed Problem Use of anticoagulation (962129711) Chronic anticoagulation (Z79.01) Active confirmed Problem Obesity (831689591) Obesity (BMI 30-39.9) (E66.9) Active confirmed Problem Type II diabetes mellitus without complication (122722221) Type 2 diabetes mellitus without complication, unspecified whether chcf insulin use (E11.9) Active confirmed Problem Chronic kidney disease stage 3B (disorder) (510130341) Chronic kidney disease, stage 3b (N18.32) Active confirmed Problem Obstructive sleep apnea (75847458) Obstructive sleep apnea (G47.33) Active confirmed Problem Screening for malignant neoplasm of prostate (620560524) Prostate cancer screening (Z12.5) Active confirmed Problem Vitamin B>12< deficiency anaemia (50147735) Anemia due to vitamin B12 deficiency, 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) Active confirmed Problem Body mass index 30.0 0 to 34.99 (548781653910279) BMI 34.0-34.9,adult (Z68.34) Active confirmed Problem Degeneration of lumbar intervertebral disc (07461931) Degenerative disc disease, lumbar (M51.36) Active confirmed Problem Benign prostatic hypertrophy without outflow obstruction (381256388) BPH loc w/o ur obs/LUTS (N40.0) Active confirmed Problem Elevated level of transaminase and lactic acid dehydrogenase (finding) (857686679) Transaminitis (R74.01) Active confirmed Problem Bilateral low ba ck pain, unspecified chronicity, unspecified whether sciatica present (M54.50) Active confirmed Problem Aortic valve disease (7236383) Aortic valve disease (I35.9) Active confirmed Problem History of heart valve repair with prosthesis (150122066785118) Aortic valve replaced (Z95.2) Active confirmed Problem Diabetes mellitus type 2 in nonobese (755738630) Diabetes mellitus type 2 in nonobese (E11.9) Active confirmed Problem Obstructive sleep apnea syndrome (78764873) ARGNEIS on CPAP (G47.33) Active confirmed Vital Signs Heart Rate 105 /min 02/24/2025 Oximetry 99 % 02/24/2025 Blood pressure diastolic 68 mm Hg 02/24/2025 Height 66 in 02/24/2025 Blood pressure systolic 122 mm Hg 02/24/2025 Weight 204 lbs 02/24/2025 BMI 32.92 kg/m2 02/24/2025 Encounters Encounter Location Date Provider Diagnosis [facility] [address] [place] [address] 08/17/2024 CHRISTINA WALTERS Type 2 diabetes phuong [...] (BMI 30-39.9) E66.9 and BMI 34.0-34.9,adult Z68.34 [facility] [address] [place] [address] 11/18/2024 CHRISTINA WALTERS Type 2 diabetes phuong [...] (BMI 30-39.9) E66.9 and BMI 34.0-34.9,adult Z68.34 [facility] [address] [place] [address] 02/24/2025 CHRISTINA WALTERS Type 2 diabetes phuong [...] [address] [place] [address] 06/28/2024 CHRISTINA SELENA [facility] [address] [place] [address] 07/28/2024 CHRISTINA SELENA [facility] [address] [place], [place] 07/29/2024 CHRISTINA SELENA [facility] [address] [place] 08/12/2024 CHRISTINA SELENA [facility] [address] [place], [place] 08/16/2024 CHRISTINA SELENA [facility] [address] [place] [address] 08/16/2024 CHRISTINA SELENA [facility] [address] [place] [address] 08/23/2024 CHRISTINA SELENA [facility] [address] [place], [place] 08/24/2024 TALAL INFANTE [facility] [address] [place] 08/27/2024 TALAL INFANTE [facility] [address] [place] [address] 11/05/2024 CHRISTINA SELENA [facility] [address] [place] [address] 11/09/2024 TALAL INFANTE [facility] [address] [place] [address] 12/06/2024 CHRISTINA SELENA [facility] [address] [place] [address] 2025 TALAL INFANTE [facility] [address] [place] [address] 01/24/2025 CHRISTINA SELENA [facility] [address] [address] 02/22/2025 CHRISTINA WALTERS Adult general medica l exam Z00.00 ; Type 2 diabetes mellitus with unspecified complications E11.8 and Hyperlipidemia, unspecified E78.5 [facility] [address] [address] 03/18/2025 CHRISTINA WALTERS [facility] [address] [place] [address] 04/27/2025 CHRISTINA WALTERS Type 2 diabetes phuong itus without complications E11.9 ; Hyperlipidemia, unspecified E78.5 ; Benign prostatic hyperplasia without lower urinary tract symptoms N40.0 ; Elevated LFTs R79.89 and Anemia in chronic kidney disease D63.[address] [facility] [address] [place] [address] 04/27/2025 CHRISTINA WALTERS [facility] [address] [place] [address] 05/04/2025 CHRISTINA WALTERS [facility] [address] [place], [place] 05/24/2025 CHRISTINA WALTERS Assessments Encounter Date Diagnosis [...] Dictation was accomplished with the use of LessonFace voice recognition software, prone to medical misidentifications [...] Dictation was accomplished with the use of [employer] voice recognition software, prone to medical misidentifications [...] with < 0.2% episodes of apnea. Sees [facility] sleep medicine. Overnight Pulse oximeter [...] Dictation was accomplished with the use of [employer] voice recognition software, prone to medical misidentifications [...] with < 0.2% episodes of apnea. Sees [facility] sleep medicine. Overnight Pulse oximeter [...] Dictation was accomplished with the use of [employer] voice recognition software, prone to medical misidentifications [...] log exercise and discussed fitness Apps like CITTIO which can help keep log off calories [...] Dictation was accomplished with the use of [employer] voice recognition software, prone to medical misidentifications [...] log exercise and discussed fitness Apps like myfitnesspal which can help keep log off calories [...] Dictation was accomplished with the use of [employer] voice recognition software, prone to medical misidentifications [...] log exercise and discussed fitness Apps like CITTIO which can help keep log off calories [...] Dictation was accomplished with the use of [employer] voice recognition software, prone to medical misidentifications [...] with < 0.2% episodes of apnea. Sees [facility] sleep medicine. Overnight Pulse oximeter [...] Dictation was accomplished with the use of [employer]on[employer] voice recognition software, prone to medical misidentifications [...] Dictation was accomplished with the use of [employer]on[employer] voice recognition software, prone to medical misidentifications [...] Dictation was accomplished with the use of [employer]on[employer] voice recognition software, prone to medical misidentifications [...] with < 0.2% episodes of apnea. Sees [facility] sleep medicine. Overnight Pulse oximeter [...] Dictation was accomplished with the use of LessonFace voice recognition software, prone to medical misidentifications [...] log exercise and discussed fitness Apps like CITTIO which can help keep log off calories [...] Dictation was accomplished with the use of [employer]onFace voice recognition software, prone to medical misidentifications [...] log exercise and discussed fitness Apps like CITTIO which can help keep log off calories [...] Dictation was accomplished with the use of [employer]on[employer] voice recognition software, prone to medical misidentifications [...] Dictation was accomplished with the use of LessonFace voice recognition software, prone to medical misidentifications [...] with < 0.2% episodes of apnea. Sees [facility] sleep medicine. Overnight Pulse oximeter [...] Dictation was accomplished with the use of LessonFace voice recognition software, prone to medical misidentifications [...] Dictation was accomplished with the use of LessonFace voice recognition software, prone to medical misidentifications [...] log exercise and discussed fitness Apps like CITTIO which can help keep log off calories [...] Dictation was accomplished with the use of LessonFace voice recognition software, prone to medical misidentifications [...] with < 0.2% episodes of apnea. Sees [facility] sleep medicine. Overnight Pulse oximeter [...] Dictation was accomplished with the use of LessonFace voice recognition software, prone to medical misidentifications [...] with < 0.2% episodes of apnea. Sees [facility] sleep medicine. Overnight Pulse oximeter [...] Dictation was accomplished with the use of LessonFace voice recognition software, prone to medical misidentifications [...] log exercise and discussed fitness Apps like CITTIO which can help keep log off calories [...] Dictation was accomplished with the use of LessonFace voice recognition software, prone to medical misidentifications [...] Dictation was accomplished with the use of LessonFace voice recognition software, prone to medical misidentifications [...] with < 0.2% episodes of apnea. Sees [facility] sleep medicine. Overnight Pulse oximeter [...] Dictation was accomplished with the use of LessonFace voice recognition software, prone to medical misidentifications [...] Dictation was accomplished with the use of LessonFace voice recognition software, prone to medical misidentifications [...] log exercise and discussed fitness Apps like CITTIO which can help keep log off calories [...] Dictation was accomplished with the use of LessonFace voice recognition software, prone to medical misidentifications [...] with < 0.2% episodes of apnea. Sees [facility] sleep medicine. Overnight Pulse oximeter [...] Dictation was accomplished with the use of LessonFace voice recognition software, prone to medical misidentifications [...] log exercise and discussed fitness Apps like CITTIO which can help keep log off calories [...] Dictation was accomplished with the use of LessonFace voice recognition software, prone to medical misidentifications [...] Dictation was accomplished with the use of LessonFace voice recognition software, prone to medical misidentifications [...] with < 0.2% episodes of apnea. Sees [facility] sleep medicine. Overnight Pulse oximeter [...] Dictation was accomplished with the use of LessonFace voice recognition software, prone to medical misidentifications [...] Dictation was accomplished with the use of LessonFace voice recognition software, prone to medical misidentifications [...] log exercise and discussed fitness Apps like CITTIO which can help keep log off calories [...] Dictation was accomplished with the use of LessonFace voice recognition software, prone to medical misidentifications [...] with < 0.2% episodes of apnea. Sees [facility] sleep medicine. Overnight Pulse oximeter [...] Dictation was accomplished with the use of LessonFace voice recognition software, prone to medical misidentifications [...] log exercise and discussed fitness Apps like CITTIO which can help keep log off calories [...] Dictation was accomplished with the use of LessonFace voice recognition software, prone to medical misidentifications [...] Dictation was accomplished with the use of LessonFace voice recognition software, prone to medical misidentifications [...] log exercise and discussed fitness Apps like CITTIO which can help keep log off calories [...] Dictation was accomplished with the use of LessonFace voice recognition software, prone to medical misidentifications [...] log exercise and discussed fitness Apps like CITTIO which can help keep log off calories [...] Dictation was accomplished with the use of LessonFace voice recognition software, prone to medical misidentifications [...] log exercise and discussed fitness Apps like CITTIO which can help keep log off calories [...] Dictation was accomplished with the use of LessonFace voice recognition software, prone to medical misidentifications [...] log exercise and discussed fitness Apps like CITTIO which can help keep log off calories [...] Dictation was accomplished with the use of LessonFace voice recognition software, prone to medical misidentifications [...] Spine 2 or 3 Views 03/02/2024 Hemoglobin [id number] 04/27/2025 Future Test Test Name Order Date CBC (COMPLETE BLOOD COUNT) 05/05/2021 COMPREHENSIVE METABOLIC PANEL 05/05/2021 HEMOGLOBIN A1C 05/05/2021 COMPREHENSIVE METABOLIC PANEL 12/04/2022 HEMOGLOBIN A1C 12/04/2022 URINALYSIS W/REFLEX CULTURE 12/04/2022 Next Appt Details Provider Name:JUMANA INFANTE, 06/30/2025 10:30:00 AM, [address], [place], [address], Insurance Providers Payer Name Payer Address Payer Phone Subscriber Number Group Number Insured Name Patient Relationship to Insured Coverage Start Date Coverage End Date Medicare Part B J14 [address] [place] [id number] ANDREBRISEYDA IRVIN Self - patient is the insured MEDEX [address] [place] [address] [id number] GRUPODANIELAIRVIN RAIN Self - patient is the insured Medical [...]
--- OUTSIDE RECORDS SUMMARY | 2025-06-28 12:01 | XMS_ITS | Clinical Summary ---
Author Organization [facility] Address [address] [place] [address] Phone Care Team Providers Care Animal Nutrition Teacher Name Role Phone Stella Lemus Primary Care Provider [phone] Allergies Active Allergy Reactions Criticality Noted Date [...] Visit [facility] [address] [address] Juliann Byrd ARNP [address] [phone] Health Maintenance Due Date Last Done Comments Hepatitis B Vaccine (1 of 3 - Risk 3-dose series) 2003 Influenza Vaccine (#1) 2025 , 07/23/2015, 07/13/2015, Additional history exists Pneumococcal Vaccine: 50+ Years Completed 02/17/2015, 07/06/2010, 09/22/2007 Pneumococcal Vaccine: Peds ( 0 to 5 Years) and At-Risk Patients (6 to 49 Years) Discontinued 02/17/2015, 07/06/2010, 09/22/2007 Insurance [facility] Medicare [facility] Medicare Care Teams Animal Nutrition Teacher Relationship Specialty Start Date End Date Stella Lemus [address] [place] [address] PCP - General 08/05/23
--- OUTSIDE RECORDS SUMMARY | 2025-06-28 12:01 | XMS_ITS | Clinical Summary ---
Author Organization [address] Address [address] [place] [address] Phone Care Team Providers Care Reprographics Technician Name Role Phone Espinoza Infante MD Primary Care Provider [phone] Allergies Active Allergy Reactions Criticality Noted Date [...] BY MOUTH TWICE DAILY 0 Active omega 7-wqe-uxg-fish oil (Fish OiL) 1,000 (120-180) mg capsule [...] kidney disease) stage 3, GFR 30-59 ml/min ([facility] V24, 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 V28) 12/01/2023 Factor V Leiden ([facility] V24) 12/01/2023 ARGENIS (obstructive sleep apnea) 12/01/2023 Seizures ([facility] V24, [facility] V28) 12/01/2023 Allergic rhinitis 07/21/2019 Autoimmune hepatitis ([facility] V24, [facility] V28) 07/21/2019 Overview (12/01/2023): 2012 BPH (benign prostatic hyperplasia) 07/21/2019 CAD (coronary artery disease) 07/21/2019 Overview (12/01/2023): CABG Carotid artery stenosis 07/21/2019 Overview (12/01/2023): Bilateral Cataract 07/21/2019 Chronic venous insufficiency 07/21/2019 Hyperlipidemia 07/21/2019 Hypertension 07/21/2019 Interstitial lung disease ([facility] V24, [facility] V28) 07/21/2019 Nephrolithiasis 07/21/2019 Type 2 diabetes mellitus ([facility] V24, [facility] V 28) 07/21/2019 DM (diabetes mellitus), type 2 with peripheral vascular complications ([facility] V24, [facility] V28) 07/21/2019 DM (diabetes mellitus), type 2 with renal complications ([facility] V24, [facility] V28) 07/21/2019 Type 2 diabetes mellitus wit h cataract ([facility] V24, [facility] V28) 07/21/2019 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 Aneurysm of ascending aorta ([facility] V24) 2016 Iron deficiency anemia 12/12/2015 Encounters Date Type Department Care Team Description 06/07/2025 10:00 AM EDT Office Visit Gastroenterology - [place] [address] [place] [address] Henry Morris MD Autoimmune hepatitis ([facility] V24, [facility] V28) (Primary Dx) from Last 3 Months Immunizations Immunization Administration [...] Medical History Date Comments Factor V Leiden ([facility] V24) DX :Factor V Leiden ([facility]) Seizures ([facility] V24, [facility] V28) DX:Seizures ([facility]) DVT (deep venous thrombosis) ([facility] V24, 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 ([facility]) Aortic valve replaced DX:Aortic valve replaced ARGENIS (obstructive sleep apnea) DX :ARGENIS (obstructive sleep apnea) BPH (benign prostatic hyperplasia) 07/21/2019 DX:BPH (benign prostatic hyperplasia) CKD (chronic kidney disease) stage 3, GFR 30-59 ml/min ([facility] V24, [facility] V28) DX:CKD (chronic kidney disea se) stage 3, GFR 30-59 ml/min ([facility]) Hyperlipidemia 07/21/2019 DX:Hyperlipidemi a Hypertension 07/21/2019 DX:Hypertension CAD (coronary artery disease) 07/21/2019 DX :CAD (coronary artery disease); COMMENT: CABG DM (diabetes mellitus), type 2 with renal complications ([facility] V24, [facility] V28) 07/21/2019 DX:DM (diabetes mellitus), t ype 2 with renal complications (HCC) Nephrolithiasis 07/21/2019 DX:Nephrolithias is Autoimmune hepatitis ([facility]/HC C V24, [facility] V28) 07/21/2019 DX:Autoimmune hepatitis (HCC ) Interstitial lung disease ([facility] V24, [facility] V28) 07/21/2019 DX:Interstitial lung disease (HCC) Allergic rhinitis 07/21/2019 DX:Allergic rh initis Cataract 07/21/2019 DX:Cataract Type 2 diabetes mellitus wit h cataract ([facility]/H[facility] V24, [facility] V28) 07/21/2019 DX:Type 2 diabetes mellitus with cataract (HCC) Chronic venous insufficiency 07/21/2019 DX: Chronic venous insufficiency DM (diabetes mellitus), type 2 with peripheral vascular complications ([facility] V24, 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 V24) 07/28/2017 DX:Aneurysm of ascending aor [...] Routine 05/31/2025 11:21 AM EDT Autoimmune hepatitis ([facility]/HCC V24, [facility]/HCC V28) CBC AND DIFFERENTIAL Routine 05/31/2025 11:21 AM EDT Autoimmune hepatitis ([facility]/HCC V24, [facility]/HCC V28) SEDIMENTATION RATE Routine 05/31/2025 11 :21 AM EDT Autoimmune hepatitis ([facility]/HCC V24, [facility]/HCC V28) C REACTIVE PROTEIN, HIGH SENSITIVITY Routine 05/31/2025 11:21 AM EDT Autoimmune hepatitis ([facility] V24, [facility] V28) HEPATIC FUNCTION PANEL Routine 05/31/2025 11:21 AM EDT Autoimmune hepatitis ([facility]/HCC V24, [facility]/HCC V28) COMPREHENSIVE METABOLIC PANEL Routine 02/23/2025 8:50 AM EDT Routine general medical examination at a [facility] care facility Diabetic complication ([facility] V24, [facility] V28) Hyperlipemia MICROALBUMIN CREATININE URINE RATIO Routine 01/25/2025 3:12 PM EDT Chronic kidney disease (CKD) stage G3b/A1, moderately decreased glomerular filtration rate (GFR) between 30-44 mL/min/1.73 square meter and albuminuria creatinine ratio les* ([facility] V24, [facility] V28) Renal osteodystrophy from Last 3 Months or Most Recently Relevant to Health Maintenance Results * (ABNORMAL) CBC auto differential (05/31/2025 11:21 AM EDT) [facility] WBC 7.7 4.8 - 10.8 K/mcL LAB [facility] RBC 4.90 4.50 - 5.50 M/mcL LAB HEMETOLOGY METHOD 05/31/2025 2:[facility] Hemoglobin 15.4 13.5 - 17.5 g/dL LAB HEMETOLOGY METHOD 05/31/2025 2:22 PM [facility] Hematocrit 47.1 42.0 - 54.0 % LAB HEMETOLOGY METHOD 05/31/2025 2:22 PM [facility] MCV 95.7 79.0 - 98.0 FL LAB HEMETOLOGY METHOD 05/31/2025 2:[facility] MCH 31.3 27.0 - 32.0 pcg LAB HEMETOLOGY METHOD 05/31/2025 2:22 PM [facility] MCHC 32.7 32.0 - 37.0 g/dL LAB HEMETOLOGY METHOD 05/31/2025 2:22 PM [facility] RDW 14.3 11.0 - 15.0 % LAB HEMETOLOGY METHOD 05/31/2025 2:22 PM [facility] Platelets 170 130 - 400 K/mcL LAB HEMETOLOGY METHOD 05/31/2025 2:22 PM [facility] MPV 10.7 7.0 - 11.0 FL LAB HEMETOLOGY METHOD 05/31/2025 2:22 PM [facility] NRBC 0.0 <1.0 % LAB HEMETOLOGY METHOD 05/31/2025 2:[facility] NRBC Absolute 0.00 <0.10 K/mcL LAB HEMETOLOGY METHOD 05/31/2025 2:22 PM [facility] Neutrophils Relative 65.2 % LAB HEMETOLOGY METHOD 05/31/2025 2:22 PM [facility] Lymphocytes Relative 22.6 % LAB HEMETOLOGY METHOD 05/31/2025 2:22 PM [facility] Monocytes Relative 8.0 % LAB HEMETOLOGY METHOD 05/31/2025 2:22 PM [facility] Eosinophils Relative 3.1 % LAB HEMETOLOGY METHOD 05/31/2025 2:22 PM [facility] Basophils Relative 0.6 % LAB HEMETOLOGY METHOD 05/31/2025 2:22 PM [facility] Immature Granulocytes Relative 0.5 % LAB HEMETOLOGY METHOD 05/31/2025 2:22 PM [facility] Neutrophils Absolute 5.03 1.50 - 7.00 K/mcL LAB HEMETOLOGY METHOD 05/31/2025 2:22 PM [facility] Lymphocytes Absolute 1.75 1.00 - 5.00 K/mcL LAB HEMETOLOGY METHOD 05/31/2025 2:22 PM [facility] Monocytes Absolute 0.62 0.20 - 1.00 K/mcL LAB HEMETOLOGY METHOD 05/31/2025 2:22 PM [facility] Eosinophils Absolute 0.24 0.00 - 0.50 K/mcL LAB HEMETOLOGY METHOD 05/31/2025 2:22 PM [facility] Basophils Absolute 0.05 0.00 - 0.20 K/mcL LAB HEMETOLOGY METHOD 05/31/2025 2:22 PM [facility] Immature Granulocytes Absolute 0.04(H) 0.00 - 0.03 K/mcL LAB HEMETOLOGY METHOD 05/31/2025 2:22 PM EDT [facility] Blood Venous blood specimen / Unknown Venipuncture / Unknown 05/31/2025 11:21 AM EDT 05/31/2025 11:21 AM EDT us Henry Morris MD LAB BLOOD ORDERABLES Final Resul t Performing Organization Address [facility]/ZIP Co de Phone Number [facility] [address] [place] [address], [place] [phone] * (ABNORMAL) Sedimentation rate (05/31/2025 11:21 AM EDT) Pathologist [facility] Sed Rate 37(H) 0 - 20 mm/hr LAB HEMETOLOGY METHOD 05/31/2025 2:37 PM EDT [facility] Blood Venous blood specimen / Unknown Venipuncture / Unknown 05/31/2025 11:21 AM EDT 05/31/2025 11:21 AM EDT us Henry Morris MD LAB BLOOD ORDERABLES Final Resul t Performing Organization Address [facility] [[email or web address]] de Phone Number [facility] [address] [place] [address], [place] [phone] * C reactive protein, high sensitivity (05/31/2025 11:21 AM EDT) Pathologist [facility] CRP, High Sensitivity 0.85 mg/L LAB CHEMISTRY METHOD 05/31/2025 4:19 PM EDT [facility] Comment: Cardio CRP Relative [...] ORDERABLES Final Resul t Performing Organization Address City/[facility]/ZIP Co de Phone Number [facility] [address] [place] [address], [place] [phone] * Hepatic function panel (05/31/2025 11:21 AM EDT) Total Protein 7.2 6.0 - 8.0 g/dL LAB CHEMISTRY METHOD 05/31/2025 4:24 PM EDT [facility] Albumin 3.6 3.2 - 5.0 g/dL LAB CHEMISTRY METHOD 05/31/2025 4:24 PM EDT [facility] Total Bilirubin 0.5 0.0 - 1.4 mg/dL LAB CHEMISTRY METHOD 05/31/2025 4:24 PM [facility] Bilirubin, Direct 0.2 0.0 - 0.3 mg/dL LAB CHEMISTRY METHOD 05/31/2025 4:24 PM EDT [facility] Bilirubin, Indirect 0.3 0.0 - 1.1 mg/dL LAB CHEMISTRY METHOD 05/31/2025 4:24 PM T [facility] ALT (SGPT) 16 10 - 60 unit/L LAB CHEMISTRY METHOD 05/31/2025 4:24 PM [facility] AST (SGOT) 24 10 - 42 unit/L LAB CHEMISTRY METHOD 05/31/2025 4:24 PM EDT [facility] Alkaline Phosphatase 60 42 - 121 unit/L LAB CHEMISTRY METHOD 05/31/2025 4:24 PM EDT [facility] Blood Venous blood specimen / Unknown Venipuncture / Unknown 05/31/2025 11:21 AM EDT 05/31/2025 11:21 AM EDT us Henry Morris MD LAB BLOOD ORDERABLES Final Resul t Performing Organization Address City/[facility]/ZIP Co de Phone Number [facility] [address] [place] [address], [place] [phone] * (ABNORMAL) Comprehensive metabolic panel (02/23/2025 8:50 AM EDT) [facility] Sodium 141 133 - 145 mmol/L LAB CHEMISTRY METHOD 02/23/2025 10:54 AM [facility] Potassium 4.5 3.5 - 5.5 mmol/L LAB CHEMISTRY METHOD 02/23/2025 10:54 AM [facility] Chloride 108 96 - 110 mmol/L LAB CHEMISTRY METHOD 02/23/2025 10:54 AM [facility] CO2 29 21 - 32 mmol/L LAB CHEMISTRY METHOD 02/23/2025 10:54 AM [facility] Anion Gap 4 3 - 11 LAB CHEMISTRY METHOD 02/23/2025 10:54 AM [facility] Glucose 106(H) 70 - 100 mg/dL LAB CHEMISTRY METHOD 02/23/2025 10:54 AM [facility] BUN 32(H) 5 - 25 mg/dL LAB CHEMISTRY METHOD 02/23/2025 10:54 AM [facility] Creatinine 1.71(H) 0.70 - 1.30 mg/dL LAB CHEMISTRY METHOD 02/23/2025 10:54 AM [facility] eGFR 39(L) >=60 mL/min/1. 73m2 LAB CHEMISTRY METHOD 02/23/2025 10:54 AM [facility] Comment:Calculation based on the Chronic Kidney Disease Epidemiology Collaboration (CKD-EPI) equation refit without adjustment for race. BUN/Creatinine Ratio 18.7 LAB CHEMISTRY METHOD 02/23/2025 10:54 AM [facility] Calcium 9.7 8.5 - 10.5 mg/dL LAB CHEMISTRY METHOD 02/23/2025 10:54 AM [facility] AST (SGOT) 30 10 - 42 unit/L LAB CHEMISTRY METHOD 02/23/2025 10:54 AM EDT [facility] ALT (SGPT) 20 10 - 60 unit/L LAB CHEMISTRY METHOD 02/23/2025 10:54 AM EDT [facility] Alkaline Phosphatase 69 42 - 121 unit/L LAB CHEMISTRY METHOD 02/23/2025 10:54 AM EDT [facility] Total Protein 7.3 6.0 - 8.0 g/dL LAB CHEMISTRY METHOD 02/23/2025 10:54 AM EDT [facility] Albumin 3.4 3.2 - 5.0 g/dL LAB CHEMISTRY METHOD 02/23/2025 10:54 AM EDT [facility] Total Bilirubin 0.8 0.0 - 1.4 mg/dL LAB CHEMISTRY METHOD 02/23/2025 10:54 AM EDT [facility] Blood Venous blood specimen / Unknown Venipuncture / Unknown 02/23/2025 8:50 AM EDT 02/23/2025 10:54 AM EDT us Stella MALDONADO LAB BLOOD ORDERABLES Final Resul t [facility] [address] [place] [address], * (ABNORMAL) Microalbumin creatinine urine ratio (01/25/2025 3:12 PM EDT) Creatinine, Urine 105.0 mg/dL LAB CHEMISTRY METHOD 01/25/2025 8:46 PM EDT [facility] Microalb, Ur 868.0(H) 0.0 - 29.0 mg/L LAB CHEMISTRY METHOD 01/25/2025 8:46 PM EDT [facility] Microalb/Crea t Ratio 827(H) <30 mg/g creat LAB CHEMISTRY METHOD 01/25/2025 8:46 PM EDT [facility] Urine Urine specimen obtained by clean catch procedure / Unknown Non-blood Collection / Unknown 01/25/2025 3:12 PM EDT 01/25/2025 4:11 PM EDT Joaquin Guaman MD LAB URINE ORDERABLES Final [facility] [address] [place] [address], from Last 3 Months or Most Recently Relevant to Health Maintenance Insurance MEDICARE [facility] Advance Directives Documents on File Type Date Recorded 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
--- OUTSIDE RECORDS SUMMARY | 2025-06-28 12:01 | XMS_ITS | Encounter Summary ---
Author Organization [facility] Address [address] [address] [address] [place] [phone] Phone Care Team Providers Care General Car Supervisor Yard Name Role Phone Osito Infante MD Primary Care Provider Encounter Details Date Type Department Care Team (Late st Contact Info) Description 11/29/2022 Procedure Pass [facility] [address] [place] [address] Social History Tobacco Use Types Packs/Day Years [...] on filedocumented in this encounter Care Teams General Car Supervisor Yard Relationship Specialty Start Date End Date Osito Infante MD [address] [place] [phone] PCP - General Internal Medicine 11/29/22 documented as of this encounter Additional Source Comments The information contained in this document represents components of the legal health record. It is not the complete legal health record.[facility]
== END 2025-06-28 10:38 | disposition home or self-care (01) ==
LOC: HO.ACS 10:09
PROVIDERS: PCP Physician Assistant Medical; Visit Provider Internal Medicine Medical Oncology
DX: Z79.01 Long term (current) use of anticoagulants (principal)

== ENCOUNTER → 2025-06-28 10:09 | Outpatient (BNVA) | payer MEDICARE, SELFPAY | PROVIDERS: PCP Physician Assistant Medical; Visit Provider Internal Medicine Medical Oncology | DX: Z51.81 Encounter for therapeutic drug level monitoring (principal); Z79.01 Long term (current) use of anticoagulants | CPT/HCPCS: 85610; 99211 ==

== ENCOUNTER 2025-07-19 10:10 | Outpatient (AMB) | payer MEDICARE, SELFPAY ==
[2025-07-19 10:38] LABS: Prothrombin Time Whole Bld POC 35.8 sec (11.1-13.5); ~PT, ~INR - Anti Coag Clinic 3.0 (0.9-1.1)
--- NOTE | 2025-07-19 10:38 | MHC.OFFVISCO ---
Intake Intake Visit Reasons: Anticoagulation Allergies lovenox Allergy (Severe, Uncoded 07/19/25 10:28) bleeding morphine Allergy (Severe, Uncoded 07/19/25 10:28) Rash kepra Adverse Reaction (Severe, Uncoded 07/19/25 10:28) Drowsy Medication List - Last Reconciled 07/19/25 by Deepika Payne, RN amoxicillin 2,000 mg PO ONCE PRN azathioprine 150 mg PO DAILY calcium carbonate-vitamin D3 600 mg-10 mcg (400 unit) caps PO DAILY cholecalciferol (vitamin D3) 25 mcg PO DAILY finasteride 5 mg PO DAILY gabapentin 600 mg PO BID metoprolol tartrate 12.5 mg PO BID multivitamin 1 tab PO DAILY nitrofurantoin monohyd/m-cryst 100 mg caps PO omega 9-qve-cvv-fish oil 1,000 (120-180) mg (Fish Oil) 1 cap PO BID sertraline 50 mg PO DAILY simvastatin 40 mg PO BEDTIME tamsulosin 0.8 mg PO DAILY triamcinolone acetonide 0.1% 1 appl topical DAILY PRN warfarin 2.5 mg See Protocol PO DAILY Nursing Note INR: 3.0 in therapeutic range of 2.5-3.5 Medications and supplements reviewed. Pt started Setraline 4-5 days ago. This med can have a delayed effect to raise the INR. No changes in health, diet or supplements, Denies any signs and symptoms of bleeding or bruising or clotting. Bleeding, bruising, clotting discussed Nutritional guidance given Dose: will keep same dose but will bring pt back sooner to monitor INR while starting this new med. 5mg X 5 days and 7.5mg X 2 days (Fri & ) F/U INR: 1 week Patient verbalizes understanding of instructions given Anti-Coag Initial Assessment Social Hx Patient Tobacco Use Status: Never used Tobacco alcohol intake: current Alcohol intake frequency: holidays/special occasions only Cardiovascular Hx: HTN Lung Disease HX: DVT/PE and Other Endocrine Hx: Diabetes and Autoimmune disorders Blood Disorder Hx: Hyperlipidemia and Hepatitis Hx: Kidney Disease and Prostate Neurological Hx: Epilepsy/Seizures and Stroke/TIA Cancer HX: No Psych. Illness/Depression: No Coding Level of Care Code Est Patient Level 1 Diagnoses Current use of anticoagulant therapy Z79.01 Assessment & Plan Assessment & Plan (1) Current use of anticoagulant therapy: Code(s): Z79.01 - USP (current) use of anticoagulants Category: Medical
== END 2025-07-19 10:47 | disposition home or self-care (01) ==
LOC: HO.ACS 10:10
PROVIDERS: PCP Physician Assistant Medical; Visit Provider Internal Medicine Medical Oncology
DX: Z79.01 Long term (current) use of anticoagulants (principal)

== ENCOUNTER → 2025-07-19 10:10 | Outpatient (BNVA) | payer MEDICARE, SELFPAY | PROVIDERS: PCP Physician Assistant Medical; Visit Provider Internal Medicine Medical Oncology | DX: Z86.711 Personal history of pulmonary embolism (principal); Z51.81 Encounter for therapeutic drug level monitoring; Z79.01 Long term (current) use of anticoagulants | CPT/HCPCS: 85610; 99211 ==

== ENCOUNTER 2025-07-25 13:03 | Outpatient (AMB) | payer MEDICARE, SELFPAY ==
[2025-07-25 13:31] LABS: Prothrombin Time Whole Bld POC 39.0 sec (11.1-13.5); ~PT, ~INR - Anti Coag Clinic 3.3 (0.9-1.1)
--- NOTE | 2025-07-25 13:37 | MHC.OFFVISCO ---
Intake Intake Visit Reasons: Anticoagulation Allergies lovenox Allergy (Severe, Uncoded 07/25/25 13:26) bleeding morphine Allergy (Severe, Uncoded 07/25/25 13:26) Rash kepra Adverse Reaction (Severe, Uncoded 07/25/25 13:26) Drowsy Medication List - Last Reconciled 07/25/25 by Deepika Payne RN amoxicillin 2,000 mg PO ONCE PRN azathioprine 150 mg PO DAILY calcium carbonate-vitamin D3 600 mg-10 mcg (400 unit) caps PO DAILY cholecalciferol (vitamin D3) 25 mcg PO DAILY finasteride 5 mg PO DAILY gabapentin 600 mg PO BID metoprolol tartrate 12.5 mg PO BID multivitamin 1 tab PO DAILY nitrofurantoin monohyd/m-cryst 100 mg caps PO omega 1-ylk-hbk-fish oil 1,000 (120-180) mg (Fish Oil) 1 cap PO BID sertraline 50 mg PO DAILY simvastatin 40 mg PO BEDTIME tamsulosin 0.8 mg PO DAILY triamcinolone acetonide 0.1% 1 appl topical DAILY PRN warfarin 2.5 mg See Protocol PO DAILY Nursing Note INR: 3.3 in therapeutic range of 2.5-3.5 Medications and supplements reviewed. Pt started on Sertraline approx 10days ago which can have a delayed effect to raise the INR. No changes in health, diet, medications, or supplements, Denies any signs and symptoms of bleeding or bruising or clotting. Bleeding, bruising, clotting discussed Nutritional guidance given Dose: 5mg X 5 days and 7.5mg X 2 days (Mon & Th) F/U INR: 1 week Patient verbalizes understanding of instructions given Anti-Coag Initial Assessment Social Hx Patient Tobacco Use Status: Never used Tobacco alcohol intake: current Alcohol intake frequency: holidays/special occasions only Cardiovascular Hx: HTN Lung Disease HX: DVT/PE and Other Endocrine Hx: Diabetes and Autoimmune disorders Blood Disorder Hx: Hyperlipidemia and Hepatitis Hx: Kidney Disease and Prostate Neurological Hx: Epilepsy/Seizures and Stroke/TIA Cancer HX: No Psych. Illness/Depression: No Coding Level of Care Code Est Patient Level 1 Diagnoses Current use of anticoagulant therapy Z79.01 Results AMB INR Fingerstick AMB INR Fingerstick 3.3 Last Edit by Deepika Payne RN on 07/25/25 13:34 interface delay Assessment & Plan Assessment & Plan (1) Current use of anticoagulant therapy: Code(s): Z79.01 - terminal clerk (current) use of anticoagulants Category: Medical
== END 2025-07-25 13:43 | disposition home or self-care (01) ==
LOC: HO.ACS 13:03
PROVIDERS: PCP Physician Assistant Medical; Visit Provider Internal Medicine Medical Oncology
DX: Z79.01 Long term (current) use of anticoagulants (principal)

== ENCOUNTER → 2025-07-25 13:03 | Outpatient (BNVA) | payer MEDICARE, SELFPAY | PROVIDERS: PCP Physician Assistant Medical; Visit Provider Internal Medicine Medical Oncology | DX: Z79.01 Long term (current) use of anticoagulants (principal); Z51.81 Encounter for therapeutic drug level monitoring | CPT/HCPCS: 85610; 99211 ==

== ENCOUNTER 2025-08-01 10:19 | Outpatient (AMB) | payer MEDICARE, SELFPAY ==
--- OUTSIDE RECORDS SUMMARY | 2025-08-01 07:45 | XMS_ITS | Encounter Summary ---
Author Organization [facility] Address [address] [place] [address] Care Team Providers Care Bereavement Program Coordinator Name Role Phone Espinoza Infante MD Primary Care Provider [phone] Encounter Details Date Type Department Care Team (Late st Contact Info) Description 08/01/2025 7:45 AM EST Lab Draw Station - [address] [place] [address] Routine general medical examination at a health care facility; Diabetic complication (CMS/HCC V24, CMS/HCC V28); Hyperlipemia; Chronic kidney disease (CKD) stage G3b/A1, moderately decreased glomerular filtration rate (GFR) between 30-44 mL/min/1.73 square meter and albuminuria creatinine ratio les* (CMS/HCC V24, CMS/HCC V28); Renal osteodystrophy; Diabetes mellitus (CMS/HCC V24, CMS/HCC V28); Benign enlargement of prostate; Abnormal blood chemistry; Anemia of chronic renal failure; Memory loss; Screening for lipoid disorders; Vitamin B12 deficiency anemia; Avitaminosis D Social History Tobacco Use Types Packs/Day Years [...] on file documented as of this encounter Procedures Procedure Name Priority Date/Time Associated Diagnosis Comments URINALYSIS WITH REFLEX MICROSCOPIC Routine 08/01/2025 8:01 AM EST Routine general medical examination at a health care facility Diabetic complication (CMS/HCC V24, CMS/[facility] V28) Hyperlipemia Chronic kidney disease (CKD) stage G3b/A1, moderately decreased glomerular filtration rate (GFR) between 30-44 mL/min/1.73 square meter and albuminuria creatinine ratio les* ([facility] V24, [facility] V28) Renal osteodystrophy URINALYSIS WITH REFLEX MICROSCOPIC Routine 08/01/2025 8:01 AM EST Routine general medical examination at a health care facility Diabetic complication ([facility] V24, [facility] V28) Hyperlipemia Chronic kidney disease (CKD) stage G3b/A1, moderately decreased glomerular filtration rate (GFR) between 30-44 mL/min/1.73 square meter and albuminuria creatinine ratio les* ([facility] V24, [facility] V28) Renal osteodystrophy PROTEIN AND CREATININE WITH RATIO, URINE Routine 08/01/2025 8:01 AM EST Routine general medical examination at a health care facility Diabetic complication ([facility] V24, [facility] V28) Hyperlipemia Chronic kidney disease (CKD) stage G3b/A1, moderately decreased glomerular filtration rate (GFR) between 30-44 mL/min/1.73 square meter and albuminuria creatinine ratio les* ([facility] V24, [facility] V28) Renal osteodystrophy MICROALBUMIN CREATININE URINE RATIO Routine 08/01/2025 8:01 AM EST Routine general medical examination at a health care facility Diabetic complication ([facility] V24, [facility] V28) Hyperlipemia Chronic kidney disease (CKD) stage G3b/A1, moderately decreased glomerular filtration rate (GFR) between 30-44 mL/min/1.73 square meter and albuminuria creatinine ratio les* ([facility] V24, [facility] V28) Renal osteodystrophy LIPID PANEL WITH REFLEX TO DIRECT LDL Routine 08/01/2025 7:59 AM EST Diabetes mellitus ([facility] V24, [facility] V28) Benign enlargement of prostate Abnormal blood chemistry Anemia of chronic renal failure Hyperlipemia Memory loss Routine general medical examination at a health care facility Screening for lipoid disorders Vitamin B12 deficiency anemia PROSTATE SPECIFIC ANTIGEN DIAGNOSTIC Routine 08/01/2025 7:59 AM EST Diabetes mellitus ([facility] V24, [facility] V28) Benign enlargement of prostate Abnormal blood chemistry Anemia of chronic renal failure Hyperlipemia Memory loss Routine general medical examination at a [facility] care facility Screening for lipoid disorders Vitamin B12 deficiency anemia CBC WITH AUTO DIFFERENTIAL Routine 08/01/2025 7:59 AM EST Diabetes mellitus ([facility] V24, [facility] V28) Benign enlargement of prostate Abnormal blood chemistry Anemia of chronic renal failure Hyperlipemia Memory loss Routine general medical examination at a [facility] care facility Screening for lipoid disorders Vitamin B12 deficiency anemia VITAMIN D 25 HYDROXY Routine 08/01/2025 7:59 AM EST Avitaminosis D CBC AND DIFFERENTIAL Routine 08/01/2025 7:59 AM EST Diabetes mellitus ([facility] V24, [facility] V28) Benign enlargement of prostate Abnormal blood chemistry Anemia of chronic renal failure Hyperlipemia Memory loss Routine general medical examination at a [facility] care facility Screening for lipoid disorders Vitamin B12 deficiency anemia PHOSPHORUS Routine 08/01/2025 7:59 AM EST Routine general medical examination at a health care facility Diabetic complication ([facility] V24, [facility] V28) Hyperlipemia Chronic kidney disease (CKD) stage G3b/A1, moderately decreased glomerular filtration rate (GFR) between 30-44 mL/min/1.73 square meter and albuminuria creatinine ratio les* ([facility] V24, [facility] V28) Renal osteodystrophy PARATHYROID HORMONE INTACT Routine 08/01/2025 7:59 AM EST Routine general medical examination at a health care facility Diabetic complication ([facility] V24, [facility] V28) Hyperlipemia Chronic kidney disease (CKD) stage G3b/A1, moderately decreased glomerular filtration rate (GFR) between 30-44 mL/min/1.73 square meter and albuminuria creatinine ratio les* ([facility] V24, [facility] V28) Renal osteodystrophy MAGNESIUM Routine 08/01/2025 7:59 AM EST Routine general medical examination at a health care facility Diabetic complication ([facility] V24, [facility] V28) Hyperlipemia Chronic kidney disease (CKD) stage G3b/A1, moderately decreased glomerular filtration rate (GFR) between 30-44 mL/min/1.73 square meter and albuminuria creatinine ratio les* ([facility] V24, [facility] V28) Renal osteodystrophy HEMOGLOBIN A1C Routine 08/01/2025 7:59 AM EST Diabetes mellitus ([facility] V24, [facility] V28) Benign enlargement of prostate Abnormal blood chemistry Anemia of chronic renal failure Hyperlipemia Memory loss Routine general medical examination at a health care facility Screening for lipoid disorders Vitamin B12 deficiency anemia FOLATE Routine 08/01/2025 7:59 AM EST Diabetes mellitus ([facility] V24, [facility] V28) Benign enlargement of prostate Abnormal blood chemistry Anemia of chronic renal failure Hyperlipemia Memory loss Routine general medical examination at a health care facility Screening for lipoid disorders Vitamin B12 deficiency anemia VITAMIN B12 Routine 08/01/2025 7:59 AM EST Diabetes mellitus ([facility] V24, [facility] V28) Benign enlargement of prostate Abnormal blood chemistry Anemia of chronic renal failure Hyperlipemia Memory loss Routine general medical examination at a health care facility Screening for lipoid disorders Vitamin B12 deficiency anemia COMPREHENSIVE METABOLIC PANEL Routine 08/01/2025 7:59 AM EST Diabetes mellitus ([facility] V24, [facility] V28) Benign enlargement of prostate Abnormal blood chemistry Anemia of chronic renal failure Hyperlipemia Memory loss Routine general medical examination at a health care facility Screening for lipoid disorders Vitamin B12 deficiency anemia documented in this encounter Results * (ABNORMAL) Urinalysis with reflex microscopic (08/01/2025 8:01 AM EST) [facility] [place] Urine 1.013 1.003 - 1.030 LAB URINALYSIS - AUTOMATED METHOD 08/01/2025 8:[address] [facility] pH, Urine 7.5 5.0 - 8.0 pH LAB URINALYSIS - AUTOMATED METHOD 08/01/2025 8:56 AM [facility] Leukocytes, Urine Moderate(A) Negative LAB URINALYSIS - AUTOMATED METHOD 08/01/2025 8:56 AM [facility] Nitrite, Urine Positive(A) Negative LAB URINALYSIS - AUTOMATED METHOD 08/01/2025 8:56 AM [facility] Protein, Urine 100(A) <=Trace mg/dL LAB URINALYSIS - AUTOMATED METHOD 08/01/2025 8:56 AM [facility] Glucose, Urine Negative Negative mg/dL LAB URINALYSIS - AUTOMATED METHOD 08/01/2025 8:56 AM [facility] Ketones, Urine Negative Negative mg/dL LAB URINALYSIS - AUTOMATED METHOD 08/01/2025 8:56 AM [facility] Urobilinogen , Urine 0.2 0.2 - 1.0 mg/dL LAB URINALYSIS - AUTOMATED METHOD 08/01/2025 8:56 AM [facility] Bilirubin, Urine Negative Negative LAB URINALYSIS - AUTOMATED METHOD 08/01/2025 8:56 AM [facility] Blood, Urine Trace(A) Negative LAB URINALYSIS - AUTOMATED METHOD 08/01/2025 8:56 AM [facility] RBC, Urine 6(H) 0 - 4 /HPF 08/01/2025 8:56 AM [facility] WBC, Urine 50(H) 0 - 4 /HPF 08/01/2025 8:56 AM [facility] Squamous Epithelial, Urine 3 0 - 60 /LPF 08/01/2025 8:56 AM [facility] Bacteria, Urine Few(A) Negative /HPF 08/01/2025 8:56 AM [facility] Urine Urine specimen obtained by clean catch procedure / Unknown Non-blood Collection / Unknown 08/01/2025 8:01 AM EST 08/01/2025 8:33 AM EST us Joaquin Guaman MD LAB URINE ORDERABLES Final Re sult Performing Organization Address [facility]/ZIP Co de Phone Number [facility] [address] [place] [address], [place] [phone] * (ABNORMAL) Microalbumin creatinine urine ratio (08/01/2025 8:01 AM EST) Creatinine, Urine 72.0 mg/dL LAB CHEMISTRY METHOD 08/01/2025 9:[address] [facility] Microalb, Ur 386.0(H) 0.0 - 29.0 mg/L LAB CHEMISTRY METHOD 08/01/2025 9:[address] [facility] Comment:Results verified by repeat testing Microalb/Crea t Ratio 536(H) <30 mg/g creat LAB CHEMISTRY METHOD 08/01/2025 9:54 AM [facility] Urine Urine specimen obtained by clean catch procedure / Unknown Non-blood Collection / Unknown 08/01/2025 8:01 AM EST 08/01/2025 8:33 AM EST us Joaquin Guaman MD LAB URINE ORDERABLES Final Re sult Performing Organization Address City/[facility]/ZIP Co de Phone Number [facility] [address] [place] [address], [place] [phone] * (ABNORMAL) Protein and creatinine with ratio, urine (08/01/2025 8:01 AM EST) Protein, Urine 70 mg/dL LAB CHEMISTRY METHOD 08/01/2025 9:19 AM [facility] Prot/Creat, Ur 0.97(H) <=0.20 mg/mg creat LAB CHEMISTRY METHOD 08/01/2025 9:19 AM [facility] Creatinine, Urine 72.0 mg/dL LAB CHEMISTRY METHOD 08/01/2025 9:[address] [facility] Urine Urine specimen obtained by clean catch procedure / Unknown Non-blood Collection / Unknown 08/01/2025 8:01 AM EST 08/01/2025 8:33 AM EST Joaquin Guaman MD LAB URINE ORDERABLES Final Re sult Performing Organization Address City/[facility]/ZIP Co de Phone Number [facility] [address] [place] [address], [place] [phone] * Vitamin D 25 hydroxy (08/01/2025 7:59 AM EST) [facility] Vit D, 25-Hydroxy 62.4 30.0 - 80.0 ng/mL LAB CHEMISTRY METHOD 08/01/2025 10:[address] [facility] Blood Venous blood specimen / Unknown Venipuncture / Unknown 08/01/2025 7:59 AM EST 08/01/2025 8:32 AM EST us Joaquin Guaman MD LAB BLOOD ORDERABLES Final Re sult Performing Organization Address [facility] de Phone Number [facility] [address] [place] [address], [place] [phone] * (ABNORMAL) CBC auto differential (08/01/2025 7:59 AM EST) [facility] WBC 7.2 4.8 - 10.8 K/[facility] LAB HEMETOLOGY METHOD 08/01/2025 8:[address] [facility] RBC 4.80 4.50 - 5.50 M/[facility] LAB HEMETOLOGY METHOD 08/01/2025 8:[address] [facility] Hemoglobin 14.7 13.5 - 17.5 g/dL LAB HEMETOLOGY METHOD 08/01/2025 8:[address] [facility] Hematocrit 45.8 42.0 - 54.0 % LAB HEMETOLOGY METHOD 08/01/2025 8:41 AM [facility] MCV 95.2 79.0 - 98.0 FL LAB HEMETOLOGY METHOD 08/01/2025 8:41 AM [facility] MCH 30.6 27.0 - 32.0 pcg LAB HEMETOLOGY METHOD 08/01/2025 8:41 AM [facility] MCHC 32.1 32.0 - 37.0 g/dL LAB HEMETOLOGY METHOD 08/01/2025 8:41 AM [facility] RDW 14.6 11.0 - 15.0 % LAB HEMETOLOGY METHOD 08/01/2025 8:41 AM [facility] Platelets 196 130 - 400 K/mcL LAB HEMETOLOGY METHOD 08/01/2025 8:41 AM [facility] MPV 10.1 7.0 - 11.0 FL LAB HEMETOLOGY METHOD 08/01/2025 8:41 AM [facility] NRBC 0.0 <1.0 % LAB HEMETOLOGY METHOD 08/01/2025 8:41 AM [facility] NRBC Absolute 0.00 <0.10 K/mcL LAB HEMETOLOGY METHOD 08/01/2025 8:41 AM [facility] Neutrophils Relative 61.4 % LAB HEMETOLOGY METHOD 08/01/2025 8:41 AM [facility] Lymphocytes Relative 26.0 % LAB HEMETOLOGY METHOD 08/01/2025 8:41 AM [facility] Monocytes Relative 7.2 % LAB HEMETOLOGY METHOD 08/01/2025 8:41 AM [facility] Eosinophils Relative 3.9 % LAB HEMETOLOGY METHOD 08/01/2025 8:41 AM [facility] Basophils Relative 0.7 % LAB HEMETOLOGY METHOD 08/01/2025 8:[address] [facility] Immature Granulocytes Relative 0.8 % LAB HEMETOLOGY METHOD 08/01/2025 8:41 AM [facility] Neutrophils Absolute 4.45 1.50 - 7.00 K/mcL LAB HEMETOLOGY METHOD 08/01/2025 8:41 AM [facility] Lymphocytes Absolute 1.88 1.00 - 5.00 K/mcL LAB HEMETOLOGY METHOD 08/01/2025 8:[address] [facility] Monocytes Absolute 0.52 0.20 - 1.00 K/mcL LAB HEMETOLOGY METHOD 08/01/2025 8:41 AM [facility] Eosinophils Absolute 0.28 0.00 - 0.50 K/mcL LAB HEMETOLOGY METHOD 08/01/2025 8:41 AM [facility] Basophils Absolute 0.05 0.00 - 0.20 K/mcL LAB HEMETOLOGY METHOD 08/01/2025 8:41 AM [facility] Immature Granulocytes Absolute 0.06(H) 0.00 - 0.03 K/mcL LAB HEMETOLOGY METHOD 08/01/2025 8:41 AM [facility] Blood Venous blood specimen / Unknown Venipuncture / Unknown 08/01/2025 7:59 AM EST 08/01/2025 8:33 AM EST us Osito Infante MD LAB BLOOD ORDERABLES Final Resul t [facility] [address] [place] [address], * (ABNORMAL) Folate (08/01/2025 7:59 AM EST) Folate >20.0(H) 2.8 - 17.0 ng/ml LAB CHEMISTRY METHOD 08/01/2025 9:36 AM [facility] Blood Venous blood specimen / Unknown Venipuncture / Unknown 08/01/2025 7:59 AM EST 08/01/2025 8:32 AM EST us Osito Infante MD LAB BLOOD ORDERABLES Final Resul t [facility] [address] [place] [address], * (ABNORMAL) Comprehensive metabolic panel (08/01/2025 7:59 AM EST) Sodium 138 133 - 145 mmol/L LAB CHEMISTRY METHOD 08/01/2025 9:36 AM [facility] Potassium 4.6 3.5 - 5.5 mmol/L LAB CHEMISTRY METHOD 08/01/2025 9:36 AM [facility] Chloride 103 96 - 110 mmol/L LAB CHEMISTRY METHOD 08/01/2025 9:36 AM [facility] CO2 29 21 - 32 mmol/L LAB CHEMISTRY METHOD 08/01/2025 9:36 AM [facility] Anion Gap 6 3 - 11 LAB CHEMISTRY METHOD 08/01/2025 9:36 AM [facility] Glucose 122(H) 70 - 100 mg/dL LAB CHEMISTRY METHOD 08/01/2025 9:36 AM [facility] BUN 31(H) 5 - 25 mg/dL LAB CHEMISTRY METHOD 08/01/2025 9:36 AM [facility] Creatinine 1.74(H) 0.70 - 1.30 mg/dL LAB CHEMISTRY METHOD 08/01/2025 9:36 AM [facility] eGFR 39(L) >=60 mL/min/1. 73m2 LAB CHEMISTRY METHOD 08/01/2025 9:36 AM [facility] Comment:Calculation based on the Chronic Kidney Disease Epidemiology Collaboration (CKD-EPI) equation refit without adjustment for race. BUN/Creatinine Ratio 17.8 LAB CHEMISTRY METHOD 08/01/2025 9:36 AM [facility] Calcium 9.8 8.5 - 10.5 mg/dL LAB CHEMISTRY METHOD 08/01/2025 9:36 AM [facility] AST (SGOT) 23 10 - 42 unit/L LAB CHEMISTRY METHOD 08/01/2025 9:36 AM [facility] ALT (SGPT) 19 10 - 60 unit/L LAB CHEMISTRY METHOD 08/01/2025 9:36 AM [facility] Alkaline Phosphatase 55 42 - 121 unit/L LAB CHEMISTRY METHOD 08/01/2025 9:36 AM [facility] Total Protein 7.0 6.0 - 8.0 g/dL LAB CHEMISTRY METHOD 08/01/2025 9:36 AM [facility] Albumin 3.4 3.2 - 5.0 g/dL LAB CHEMISTRY METHOD 08/01/2025 9:36 AM [facility] Total Bilirubin 0.5 0.0 - 1.4 mg/dL LAB CHEMISTRY METHOD 08/01/2025 9:36 AM [facility] Blood Venous blood specimen / Unknown Venipuncture / Unknown 08/01/2025 7:59 AM EST 08/01/2025 8:32 AM EST us Osito Infante MD LAB BLOOD ORDERABLES Final Resul t [facility] [address] [place] [address], * (ABNORMAL) Lipid panel with reflex to direct LDL (08/01/2025 7:59 AM EST) Cholesterol 140 0 - 200 mg/dL LAB CHEMISTRY METHOD 08/01/2025 9:36 AM [facility] Triglycerides 225(H) 0 - 150 mg/dL LAB CHEMISTRY METHOD 08/01/2025 9:36 AM [facility] HDL 38(L) >=40 mg/dL LAB CHEMISTRY METHOD 08/01/2025 9:36 AM [facility] LDL Calculated 57 0 - 100 mg/dL LAB CHEMISTRY METHOD 08/01/2025 9:36 AM [facility] Comment:Estimated LDL Calcul ated using equation: Total cholesterol - HDL cholesterol - (Triglycerides/5) VLDL Cholesterol Max 45 mg/dL LAB CHEMISTRY METHOD 08/01/2025 9:36 AM [facility] Non HDL Chol. (LDL+VLDL) 102 <145 mg/dL LAB CHEMISTRY METHOD 08/01/2025 9:36 AM [facility] Chol/HDL Ratio 3.7 0.0 - 4.4 LAB CHEMISTRY METHOD 08/01/2025 9:36 AM [facility] Blood Venous blood specimen / Unknown Venipuncture / Unknown 08/01/2025 7:59 AM EST 08/01/2025 8:32 AM EST us Osito Infante MD LAB BLOOD ORDERABLES Final Resul t Performing Organization Address City/[facility]/ZIP Id de Phone Number [facility] [address] [place] [address], * Vitamin B12 (08/01/2025 7:59 AM EST) Vitamin B-12 779 250 - 900 pcg/mL LAB CHEMISTRY METHOD 08/01/2025 9:[address] [facility] Blood Venous blood specimen / Unknown Venipuncture / Unknown 08/01/2025 7:59 AM EST 08/01/2025 8:32 AM EST us Osito Infante MD LAB BLOOD ORDERABLES Final Resul t [facility] [address] [place] [address], [place] [phone] * (ABNORMAL) Hemoglobin A1c (08/01/2025 7:59 AM EST) Hemoglobin A1C 6.7(H) <6.5 % LAB CHEMISTRY METHOD 08/01/2025 11:[address] [facility] Mean Bld Glu Estim. 146 mg/dL LAB CHEMISTRY METHOD 08/01/2025 11:[address] [facility] Blood Venous blood specimen / Unknown Venipuncture / Unknown 08/01/2025 7:59 AM EST 08/01/2025 8:33 AM EST us Osito Infante MD LAB BLOOD ORDERABLES Final Resul t Performing Organization Address [facility] de Phone Number [facility] [address] [place] [address], * Prostate specific antigen diagnostic (08/01/2025 7:59 AM EST) PSA 2.75 0.00 - 4.00 ng/mL LAB CHEMISTRY METHOD 08/01/2025 10:[address] [facility] Blood Venous blood specimen / Unknown Venipuncture / Unknown 08/01/2025 7:59 AM EST 08/01/2025 8:[address] [facility] - 08/01/2025 10:14 AM EST The Siemens Advia Centaur Chemiluminescent Immunoassay is used. Results obtained with different assay methods or kits cannot be used interchangeably. Results cannot be interpreted as absolute evidence of the presence or absence of malignant disease. us Osito Infante MD LAB BLOOD ORDERABLES Final Resul t Performing Organization Address City/[facility]/ZIP Co de Phone Number [facility] [address] [place] [address], [place] [phone] * Parathyroid hormone intact (08/01/2025 7:59 AM EST) PTH 66.0 18.5 - 88.0 pcg/mL LAB CHEMISTRY METHOD 08/01/2025 10:[address] [facility] Blood Venous blood specimen / Unknown Venipuncture / Unknown 08/01/2025 7:59 AM EST 08/01/2025 8:32 AM EST us Joaquin Guaman MD LAB BLOOD ORDERABLES Final Re sult [facility] [address] [place] [address], [place] [phone] * Phosphorus (08/01/2025 7:59 AM EST) Phosphorus 2.9 2.5 - 4.5 mg/dL LAB CHEMISTRY METHOD 08/01/2025 9:[address] [facility] Blood Venous blood specimen / Unknown Venipuncture / Unknown 08/01/2025 7:59 AM EST 08/01/2025 8:32 AM EST us Joaquin Guaman MD LAB BLOOD ORDERABLES Final Re sult Performing Organization Address City/[facility]/ZIP Co de Phone Number [facility] [address] [place] [address], [place] [phone] * Magnesium (08/01/2025 7:59 AM EST) Magnesium 2.2 1.9 - 2.6 mg/dL LAB CHEMISTRY METHOD 08/01/2025 9:[address] [facility] Blood Venous blood specimen / Unknown Venipuncture / Unknown 08/01/2025 7:59 AM EST 08/01/2025 8:32 AM EST us Joaquin Guaman MD LAB BLOOD ORDERABLES Final Re sult [facility] [place] ([facility]) [facility] [address] [place] [address], documented in this encounter Visit Diagnoses Diagnosis Routine general medical examination at a health care facility Diabetic complication ([facility] V24, [facility] V28) Type II or unspecified type diabetes mellitus with unspecified complication, not stated as uncontrolled Hyperlipemia Other and unspecified hyperlipidemia Chronic kidney disease (CKD) stage G3b/A1, moderately decreased glomerular filtration rate (GFR) between 30-44 mL/min/1.73 square meter and albuminuria creatinine ratio les* ([facility] V24, [facility] V28) Renal osteodystrophy Diabetes mellitus ([facility] V24, [facility] V28) Type II or unspecified type diabetes mellitus without mention of complication, not stated as uncontrolled Benign enlargement of prostate Hypertrophy of prostate without urinary obstruction and other lower urinary tract symptoms (LUTS) Abnormal blood chemistry Other abnormal blood chemistry Anemia of chronic renal failure Anemia in chronic kidney disease Memory loss Screening for lipoid disorders Vitamin B12 deficiency anemia Other vitamin B12 deficiency anemia Avitaminosis D Unspecified vitamin D deficiency documented in this encounter Care Teams Bereavement Program Coordinator Relationship Specialty Start Date End Date Espinoza Infante MD [address] [place] [phone] PCP - General Internal Medicine 10/18/24 documented as of this encounter
--- NOTE | 2025-08-01 10:35 | MHC.OFFVISCO ---
Intake Intake Visit Reasons: Anticoagulation Allergies lovenox Allergy (Severe, Uncoded 08/01/25 10:30) bleeding morphine Allergy (Severe, Uncoded 08/01/25 10:30) Rash kepra Adverse Reaction (Severe, Uncoded 08/01/25 10:30) Drowsy Medication List - Last Reconciled 08/01/25 by Soo Ho RN amoxicillin 2,000 mg PO ONCE PRN azathioprine 150 mg PO DAILY calcium carbonate-vitamin D3 600 mg-10 mcg (400 unit) caps PO DAILY cholecalciferol (vitamin D3) 25 mcg PO DAILY finasteride 5 mg PO DAILY gabapentin 600 mg PO BID metoprolol tartrate 12.5 mg PO BID multivitamin 1 tab PO DAILY nitrofurantoin monohyd/m-cryst 100 mg caps PO omega 7-dnf-zto-fish oil 1,000 (120-180) mg (Fish Oil) 1 cap PO BID sertraline 50 mg PO DAILY simvastatin 40 mg PO BEDTIME tamsulosin 0.8 mg PO DAILY triamcinolone acetonide 0.1% 1 appl topical DAILY PRN warfarin 2.5 mg See Protocol PO DAILY Nursing Note INR: 3.3- in therapeutic range 2.5-3.5 Medications and supplements reviewed- no changes, recently started sertraline/delayed onset with interaction with warfarin pt states the sertraline makes him drowsy and he does take it in the evening No changes in health, diet, medications, or supplements, appetite somewhat less Denies any signs and symptoms of bleeding or bruising or clotting. Bleeding, bruising, clotting discussed Nutritional guidance given Dose: 7.5mg x 2, 5mg x 5 F/U INR: 1 week Patient verbalizes understanding of instructions given pt states had labs today and has upcoming pcp appt Anti-Coag Initial Assessment Social Hx Patient Tobacco Use Status: Never used Tobacco alcohol intake: current Alcohol intake frequency: holidays/special occasions only Cardiovascular Hx: HTN Lung Disease HX: DVT/PE and Other Endocrine Hx: Diabetes and Autoimmune disorders Blood Disorder Hx: Hyperlipidemia and Hepatitis Hx: Kidney Disease and Prostate Neurological Hx: Epilepsy/Seizures and Stroke/TIA Cancer HX: No Psych. Illness/Depression: No Coding Level of Care Code Est Patient Level 1 Diagnoses Current use of anticoagulant therapy Z79.01 Results AMB INR Fingerstick AMB INR Fingerstick Cancelled Last Edit by Soo Ho RN on 08/01/25 12:09 AMB INR Fingerstick previously reported as 3.3 Soo Ho 08/01/25 12:09 interface delay CANCELLED duplicate AMB INR Fingerstick AMB INR Fingerstick 3.3 Last Edit by Soo Ho RN on 08/01/25 12:11 Assessment & Plan Assessment & Plan (1) Current use of anticoagulant therapy: Code(s): Z79.01 - buttermaker continuous churn (current) use of anticoagulants Category: Medical
[2025-08-01 10:44] LABS: Prothrombin Time Whole Bld POC 39.7 sec (11.1-13.5); ~PT, ~INR - Anti Coag Clinic 3.3 (0.9-1.1)
--- OUTSIDE RECORDS SUMMARY | 2025-08-01 12:05 | XMS_ITS | Encounter Summary ---
Author Organization [facility] Address [address] [place] [phone] Phone Care Team Providers Care Tack Puller Name Role Phone Osito Infante MD Primary Care Provider Encounter Details Date Type Department Care Team (Late st Contact Info) Description 11/29/2022 Procedure Pass [facility] [address] [place] [address] Social History Tobacco Use Types Packs/Day Years [...] on filedocumented in this encounter Care Teams Tack Puller Relationship Specialty Start Date End Date Osito Infante MD [address] [place] [id number] PCP - General Internal Medicine 11/29/22 documented as of this encounter Additional Source Comments The information contained in this document represents components of the legal health record. It is not the complete legal health record.[facility]
--- OUTSIDE RECORDS SUMMARY | 2025-08-01 12:05 | XMS_ITS | Clinical Summary ---
Author Organization [facility] Address [address] [place] [phone] Phone Care Team Providers Care [employer] Worker Name Role Phone Stella Lemus Primary Care Provider [phone] Allergies Active Allergy Reactions Criticality Noted Date [...] Encounters Date Type Department Care Team Description 08/01/2025 Orders Only [facility] [address] [facility] [address] [place] [address] Jaoquin Guaman MD from Last 3 Months Immunizations Immunization Administration [...] Visit [facility] [address] [facility] [address] [place] [address] Juliann Byrd ARNP [address] [address] Health Maintenance Due Date Last [...] Procedure Name Priority Date/Time Associated Diagnosis Comments URINE ALBUMIN / CREATININE RATIO Routine 08/01/2025 8:01 AM EST PROTEIN / CREATININE RATIO, URINE Routine 08/01/2025 8:01 AM EST URINALYSIS RFX MICROSCOPIC Routine 08/01/2025 8:01 AM EST VITAMIN D 25 HYDROXY Routine 08/01/2025 7:59 AM EST PTH, INTACT Routine 08/01/2025 7:59 AM EST PHOSPHATE ( PHOSPHORUS) Routine 08/01/2025 7:59 AM EST MAGNESIUM Routine 08/01/2025 7:59 AM EST from Last 3 Months Results * (ABNORMAL) Protein, Total, Random Urine w/Creatinine (Protein/Creat Ratio) (08/01/2025 8:01 AM EST) Protein, Ur 70 mg/dL [facility] Urine Protein/Creati nine Ratio 0.97(H) <=0.20 mg/mg creat [facility] Creatinine, Urine 72.0 mg/dL [facility] 08/01/2025 8:01 AM EST 08/01/2025 8:33 AM EST Joaquin Guaman MD LAB URINE ORDERABLES Final Re sult Performing Organization Address [facility] de Phone Number [facility] [address] [place] [address] * (ABNORMAL) Urine Albumin / Creatinine Ratio (08/01/2025 8:01 AM EST) [facility] Creatinine, Urine 72.0 mg/dL [facility] Microalbumin Urine Random 386.0(H) 0.0 - 29.0 mg/L [facility] Comment:Results verified by repeat testing Microalbumin/Cre atinine Ratio 536(H) <30 mg/g [facility] 08/01/2025 8:01 AM EST 08/01/2025 8:33 AM EST Joaquin Guaman MD LAB URINE ORDERABLES Final Re sult Performing Organization Address [facility] Co de Phone Number [facility] [address] [place] [address] * (ABNORMAL) Urinalysis Reflex Microscopic (08/01/2025 8:01 AM EST) [facility] Specific [place] 1.013 1.003 - 1.030 [facility] pH Urine 7.5 5.0 - 8.0 pH [facility] LEUKOCYTES, URINE Moderate(A) Negative [facility] Nitrite, Urine Positive(A) Negative [facility] Protein, Urine 100(A) <=Trace mg/dL [facility] Glucose Urine Negative Negative mg/dL [facility] Ketones, Urine Negative Negative mg/dL [facility] Urobilinogen Urine 0.2 0.2 - 1.0 mg/dL [facility] Bilirubin Urine Negative Negative [facility] Blood Urine Trace(A) Negative [facility] RBC, Urine 6(H) 0 - 4 /HPF [facility] WBC, Urine 50(H) 0 - 4 /HPF [facility] Squamous Epithelial, Urine 3 0 - 60 /LPF [facility] Bacteria, Urine Few(A) Negative /HPF [facility] 08/01/2025 8:01 AM EST 08/01/2025 8:33 AM EST Joaquin Guaman MD LAB URINE ORDERABLES Final Re sult Performing Organization Address [facility]/ZIP Co de Phone Number [facility] [address] [place] [address] * Vitamin D 25 Hydroxy (08/01/2025 7:59 AM EST) Vitamin D, 25-OH, Total 62.4 30.0 - 80.0 ng/mL [facility] 08/01/2025 7:59 AM EST 08/01/2025 8:32 AM EST Narrative [facility] - 08/01/2025 10:14 AM EST Patient can only have test 1x per yr per ins regulation. c Joaquin Guaman MD LAB BLOOD ORDERABLES Final Re sult Performing Organization Address City/[facility]/ZIP Co de Phone Number [facility] [address] [place] [address] * Phosphorus (08/01/2025 7:59 AM EST) Phosphorus 2.9 2.5 - 4.5 mg/dL [facility] 08/01/2025 7:59 AM EST 08/01/2025 8:32 AM EST Joaquin Guaman MD LAB BLOOD ORDERABLES Final Re sult Performing Organization Address City/[facility]/ZIP Co de Phone Number [facility] [address] [place] [address] * PTH, Intact (08/01/2025 7:59 AM EST) PTH 66.0 18.5 - 88.0 pcg/mL [facility] 08/01/2025 7:59 AM EST 08/01/2025 8:32 AM EST Joaquin Guaman MD LAB BLOOD ORDERABLES Final Re sult Performing Organization Address [facility]/ZIP Co de Phone Number [facility] [address] [place] [address] * Magnesium (08/01/2025 7:59 AM EST) Magnesium 2.2 1.9 - 2.6 mg/dL [facility] 08/01/2025 7:59 AM EST 08/01/2025 8:32 AM EST Joaquin Guaman MD LAB BLOOD ORDERABLES Final Re sult Performing Organization Address City/[facility] Co de Phone Number [facility] [address] [place] [address] from Last 3 Months Insurance [facility] Medicare [facility] Medicare Care Teams [employer] Worker Relationship Specialty Start Date End Date Stella Lemus [address] [place] [address] PCP - General 08/05/23
--- OUTSIDE RECORDS SUMMARY | 2025-08-01 12:05 | XMS_ITS | Clinical Summary ---
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, [facility] V28) 12/01/2023 Factor V Leiden ([facility] V24) 12/01/2023 ARGENIS (obstructive sleep apnea) 12/01/2023 Seizures ([facility] V24, [facility] V28) 12/01/2023 Allergic rhinitis 07/21/2019 Autoimmune hepatitis ([facility] V24, [facility] V28) 07/21/2019 Overview (12/01/2023): 2012 BPH (benign prostatic hyperplasia) 07/21/2019 CAD (coronary artery disease) 07/21/2019 Overview (12/01/2023): CABG Carotid artery stenosis 07/21/2019 Overview (12/01/2023): Bilateral Cataract 07/21/2019 Chronic venous insufficiency 07/21/2019 Hyperlipidemia 07/21/2019 Hypertension 07/21/2019 Interstitial lung disease ([facility] V24, [facility] V28) 07/21/2019 Nephrolithiasis 07/21/2019 Type 2 diabetes mellitus ([facility] V24, [facility] V 28) 07/21/2019 DM (diabetes mellitus), type 2 with peripheral vascular complications ([facility] V24, [facility] V28) 07/21/2019 DM (diabetes mellitus), type 2 with renal complications ([facility] V24, [facility] V28) 07/21/2019 Type 2 diabetes mellitus wit h cataract ([facility] V24, [facility] V28) 07/21/2019 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 Aneurysm of ascending aorta ([facility] V24) 2016 Iron deficiency anemia 12/12/2015 Encounters Date Type Department Care Team Description 08/01/2025 7:45 AM EST Lab Draw Station - [address] [address] [place] [address] Routine general medical examination at a health care facility; Diabetic complication ([facility] V24, [facility] V28); Hyperlipemia; Chronic kidney disease (CKD) stage G3b/A1, moderately decreased glomerular filtration rate (GFR) between 30-44 mL/min/1.73 square meter and albuminuria creatinine ratio les* ([facility] V24, [facility] V28); Renal osteodystrophy; Diabetes mellitus ([facility] V24, [facility] V28); Benign enlargement of prostate; Abnormal blood chemistry; Anemia of chronic renal failure; Memory loss; Screening for lipoid disorders; Vitamin B12 deficiency anemia; Avitaminosis D 06/07/2025 10:00 AM EDT Office Visit Gastroenterology - [place] [address] [facility] [address] [facility] [address] [place] [address] Henry Morris MD Autoimmune hepatitis ([facility] V24, [facility] V28) (Primary Dx) from Last 3 Months [...] Medical History Date Comments Factor V Leiden ([facility] V24) DX :Factor V Leiden (HCC) Seizures ([facility] V24, [facility] V28) DX:Seizures (HCC) DVT (deep venous thrombosis) ([facility] V24, [facility] V28) DX:DVT (deep venous thrombos is) (HCC) 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CMS/HCC V24, CMS/HCC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 (HCC) Aortic valve replaced DX:Aortic valve replaced ARGENIS (obstructive sleep apnea) DX :ARGENIS (obstructive sleep apnea) BPH (benign prostatic hyperplasia) 07/21/2019 DX:BPH (benign prostatic hyperplasia) CKD (chronic kidney disease) stage 3, GFR 30-59 ml/min ([facility] V24, [facility] V28) DX:CKD (chronic kidney disea se) stage 3, GFR 30-59 ml/min ([facility]) Hyperlipidemia 07/21/2019 DX:Hyperlipidemi a Hypertension 07/21/2019 DX:Hypertension CAD (coronary artery disease) 07/21/2019 DX :CAD (coronary artery disease); COMMENT: CABG DM (diabetes mellitus), type 2 with renal complications ([facility] V24, [facility] V28) 07/21/2019 DX:DM (diabetes mellitus), t ype 2 with renal complications (HCC) Nephrolithiasis 07/21/2019 DX:Nephrolithias is Autoimmune hepatitis ([facility] V24, [facility] V28) 07/21/2019 DX:Autoimmune hepatitis (HCC ) Interstitial lung disease ([facility]/HCC V24, [facility] V28) 07/21/2019 DX:Interstitial lung disease (HCC) Allergic rhinitis 07/21/2019 DX:Allergic rh initis Cataract 07/21/2019 DX:Cataract Type 2 diabetes mellitus wit h cataract ([facility] V24, [facility] V28) 07/21/2019 DX:Type 2 diabetes mellitus with cataract (HCC) Chronic venous insufficiency 07/21/2019 DX: Chronic venous insufficiency DM (diabetes mellitus), type 2 with peripheral vascular complications ([facility] V24, [facility] V28) 07/21/2019 DX:DM (diabetes mellitus), type 2 with peripheral vascular complications (HCC) Carotid artery stenosis 07/21/2019 DX:Carot id artery stenosis; COMMENT: Bilateral History of DVT (deep vein thrombosis) 08/21/2018 DX:History of DVT (deep vein thrombosis) 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:Post -thrombotic syndrome Aneurysm of ascending aorta ([facility] V24) 07/28/2017 DX:Aneurysm of [...] 2) 1962 Cholesterol Screening (Lipid Panel) 08/24/2022 08/01/2025 Falls Risk Assessment 08/24/2022 Social Influencers of Health Screening 08/24/2022 Diabetes: Blood Sugar Control Test (HGBA1C) 09/07/2022 08/01/2025 Medicare Annual Wellness Visit 11/27/2023 11/26/2022 Depression Screening 09/22/2024 COVID-19 Vaccine ( season) 2025 08/10/2024, 07/24/2023, 06/10/2022, Additional history exists Diabetes: Annual Urine Albumin-Creatinine Ratio (uACR) 01/25/2026 08/01/2025, 01/25/2025, 01/25/2025 Diabetes: Annual GFR (Glomerular Filtration Rate) 02/23/2026 08/01/2025, 02/23/2025, 01/25/2025, Additional history exists Hypertension/CHF/CAD Annual BMP Blood Test 02/23/2026 08/01/2025, 02/23/2025, 01/25/2025, Additional history exists Pneumococcal Vaccine: 50+ Years Completed 02/17/2015, 07/06/2010, 09/22/2007 RSV Immunization Adult Patients Completed 09/08/2023 Influenza Vaccine Completed 06/26/2025, , 06/27/2023, Additional history exists HIB Vaccines Aged Out [...] at a health care facility Diabetic complication ([facility] V24, [facility] V28) Hyperlipemia Chronic kidney disease (CKD) stage G3b/A1, moderately decreased glomerular filtration rate (GFR) between 30-44 mL/min/1.73 square meter and albuminuria creatinine ratio les* ([facility] V24, [facility] V28) Renal osteodystrophy URINALYSIS WITH REFLEX MICROSCOPIC Routine 08/01/2025 8:01 AM EST Routine general medical examination at a health care facility Diabetic complication ([facility] V24, [facility] V28) Hyperlipemia Chronic kidney disease (CKD) stage G3b/A1, moderately decreased glomerular filtration rate (GFR) between 30-44 mL/min/1.73 square meter and albuminuria creatinine ratio les* ([facility] V24, [facility] V28) Renal osteodystrophy MICROALBUMIN CREATININE URINE RATIO Routine 08/01/2025 8:01 AM EST Routine general medical examination at a health care facility Diabetic complication ([facility] V24, [facility] V28) Hyperlipemia Chronic kidney disease (CKD) stage G3b/A1, moderately decreased glomerular filtration rate (GFR) between 30-44 mL/min/1.73 square meter and albuminuria creatinine ratio les* ([facility] V24, [facility] V28) Renal osteodystrophy PROTEIN AND CREATININE WITH RATIO, URINE Routine 08/01/2025 8:01 AM EST Routine general medical examination at a health care facility Diabetic complication ([facility] V24, [facility] V28) Hyperlipemia Chronic kidney disease (CKD) stage G3b/A1, moderately decreased glomerular filtration rate (GFR) between 30-44 mL/min/1.73 square meter and albuminuria creatinine ratio les* ([facility] V24, [facility] V28) Renal osteodystrophy VITAMIN D 25 HYDROXY Routine 08/01/2025 7:59 AM EST Avitaminosis D CBC WITH AUTO DIFFERENTIAL Routine 08/01/2025 7:59 AM EST Diabetes mellitus ([facility] V24, [facility] V28) Benign enlargement of prostate Abnormal blood chemistry Anemia of chronic renal failure Hyperlipemia Memory loss Routine general medical examination at a health care facility Screening for lipoid disorders Vitamin B12 deficiency anemia FOLATE Routine 08/01/2025 7:59 AM EST Diabetes mellitus ([facility] V24, [facility] V28) Benign enlargement of prostate Abnormal blood chemistry Anemia of chronic renal failure Hyperlipemia Memory loss Routine general medical examination at a health care facility Screening for lipoid disorders Vitamin B12 deficiency anemia COMPREHENSIVE METABOLIC PANEL Routine 08/01/2025 7:59 AM EST Diabetes mellitus ([facility] V24, [facility] V28) Benign enlargement of prostate Abnormal blood chemistry Anemia of chronic renal failure Hyperlipemia Memory loss Routine general medical examination at a health care facility Screening for lipoid disorders Vitamin B12 deficiency anemia CBC AND DIFFERENTIAL Routine 08/01/2025 7:59 AM EST Diabetes mellitus ([facility] V24, [facility] V28) Benign enlargement of prostate Abnormal blood chemistry Anemia of chronic renal failure Hyperlipemia Memory loss Routine general medical examination at a health care facility Screening for lipoid disorders Vitamin B12 deficiency anemia LIPID PANEL WITH REFLEX TO DIRECT LDL Routine 08/01/2025 7:59 AM EST Diabetes mellitus ([facility] V24, [facility] V28) Benign enlargement of prostate Abnormal blood chemistry Anemia of chronic renal failure Hyperlipemia Memory loss Routine general medical examination at a [facility] care facility Screening for lipoid disorders Vitamin B12 deficiency anemia VITAMIN B12 Routine 08/01/2025 7:59 AM EST Diabetes mellitus ([facility] V24, [facility] V28) Benign enlargement of prostate Abnormal blood chemistry Anemia of chronic renal failure Hyperlipemia Memory loss Routine general medical examination at a health care facility Screening for lipoid disorders Vitamin B12 deficiency anemia HEMOGLOBIN A1C Routine 08/01/2025 7:59 AM EST Diabetes mellitus ([facility] V24, [facility] V28) Benign enlargement of prostate Abnormal blood chemistry Anemia of chronic renal failure Hyperlipemia Memory loss Routine general medical examination at a health care facility Screening for lipoid disorders Vitamin B12 deficiency anemia PROSTATE SPECIFIC ANTIGEN DIAGNOSTIC Routine 08/01/2025 7:59 AM EST Diabetes mellitus ([facility] V24, [facility] V28) Benign enlargement of prostate Abnormal blood chemistry Anemia of chronic renal failure Hyperlipemia Memory loss Routine general medical examination at a health care facility Screening for lipoid disorders Vitamin B12 deficiency anemia PARATHYROID HORMONE INTACT Routine 08/01/2025 7:59 AM EST Routine general medical examination at a health care facility Diabetic complication ([facility] V24, [facility] V28) Hyperlipemia Chronic kidney disease (CKD) stage G3b/A1, moderately decreased glomerular filtration rate (GFR) between 30-44 mL/min/1.73 square meter and albuminuria creatinine ratio les* (CMS/HCC V24, CMS/HCC V28) Renal osteodystrophy PHOSPHORUS Routine 08/01/2025 7:59 AM EST Routine general medical examination at a health care facility Diabetic complication (CMS/HCC V24, CMS/HCC V28) Hyperlipemia Chronic kidney disease (CKD) stage G3b/A1, moderately decreased glomerular filtration rate (GFR) between 30-44 mL/min/1.73 square meter and albuminuria creatinine ratio les* (CMS/HCC V24, CMS/HCC V28) Renal osteodystrophy MAGNESIUM Routine 08/01/2025 7:59 AM EST Routine general medical examination at a health care facility Diabetic complication (CMS/HCC V24, CMS/HCC V28) Hyperlipemia Chronic kidney disease (CKD) stage G3b/A1, moderately decreased glomerular filtration rate (GFR) between 30-44 mL/min/1.73 square meter and albuminuria creatinine ratio les* (CMS/HCC V24, CMS/HCC V28) Renal osteodystrophy CBC WITH AUTO DIFFERENTIAL Routine 05/31/2025 11:21 AM EDT Autoimmune hepatitis (CMS/HCC V24, CMS/HCC V28) CBC AND DIFFERENTIAL Routine 05/31/2025 11:21 AM EDT Autoimmune hepatitis (CMS/HCC V24, CMS/HCC V28) SEDIMENTATION RATE Routine 05/31/2025 11 :21 AM EDT Autoimmune hepatitis (CMS/HCC V24, CMS/HCC V28) C REACTIVE PROTEIN, HIGH SENSITIVITY Routine 05/31/2025 11:21 AM EDT Autoimmune hepatitis (CMS/HCC V24, CMS/HCC V28) HEPATIC FUNCTION PANEL Routine 05/31/2025 11:21 AM EDT Autoimmune hepatitis (CMS/HCC V24, CMS/HCC V28) from Last 3 Months Results * (ABNORMAL) Urinalysis with reflex microscopic (08/01/2025 8:01 AM EST) Specific [place] Urine 1.013 1.003 - 1.030 LAB URINALYSIS - AUTOMATED METHOD 08/01/2025 8:56 AM [facility] pH, Urine 7.5 5.0 - 8.0 pH LAB URINALYSIS - AUTOMATED METHOD 08/01/2025 8:56 AM [facility] Leukocytes, Urine Moderate(A) Negative LAB URINALYSIS - AUTOMATED METHOD 08/01/2025 8:56 AM [facility] Nitrite, Urine Positive(A) Negative LAB URINALYSIS - AUTOMATED METHOD 08/01/2025 8:56 AM [facility] Protein, Urine 100(A) <=Trace mg/dL LAB URINALYSIS - AUTOMATED METHOD 08/01/2025 8:56 AM [facility] Glucose, Urine Negative Negative mg/dL LAB URINALYSIS - AUTOMATED METHOD 08/01/2025 8:56 AM [facility] Ketones, Urine Negative Negative mg/dL LAB URINALYSIS - AUTOMATED METHOD 08/01/2025 8:56 AM [facility] Urobilinogen , Urine 0.2 0.2 - 1.0 mg/dL LAB URINALYSIS - AUTOMATED METHOD 08/01/2025 8:56 AM [facility] Bilirubin, Urine Negative Negative LAB URINALYSIS - AUTOMATED METHOD 08/01/2025 8:56 AM [facility] Blood, Urine Trace(A) Negative LAB URINALYSIS - AUTOMATED METHOD 08/01/2025 8:56 AM [facility] RBC, Urine 6(H) 0 - 4 /HPF 08/01/2025 8:56 AM [facility] WBC, Urine 50(H) 0 - 4 /HPF 08/01/2025 8:56 AM [facility] Squamous Epithelial, Urine 3 0 - 60 /LPF 08/01/2025 8:56 AM [facility] Bacteria, Urine Few(A) Negative /HPF 08/01/2025 8:56 AM [facility] Urine Urine specimen obtained by clean catch procedure / Unknown Non-blood Collection / Unknown 08/01/2025 8:01 AM EST 08/01/2025 8:33 AM EST Joaquin Guaman MD LAB URINE ORDERABLES Final Re sult Performing Organization Address [facility]/ZIP Co de Phone Number [facility] [address] [place] [address], [place] [phone] * (ABNORMAL) Protein and creatinine with ratio, urine (08/01/2025 8:01 AM EST) Protein, Urine 70 mg/dL LAB CHEMISTRY METHOD 08/01/2025 9:19 AM [facility] Prot/Creat, Ur 0.97(H) <=0.20 mg/mg creat LAB CHEMISTRY METHOD 08/01/2025 9:19 AM [facility] Creatinine, Urine 72.0 mg/dL LAB CHEMISTRY METHOD 08/01/2025 9:19 AM [facility] Urine Urine specimen obtained by clean catch procedure / Unknown Non-blood Collection / Unknown 08/01/2025 8:01 AM EST 08/01/2025 8:33 AM EST Joaquin Guaman MD LAB URINE ORDERABLES Final Re sult Performing Organization Address City/[facility]/ZIP Co de Phone Number [facility] [address] [place] [address], [place] [phone] * (ABNORMAL) Microalbumin creatinine urine ratio (08/01/2025 8:01 AM EST) Creatinine, Urine 72.0 mg/dL LAB CHEMISTRY METHOD 08/01/2025 9:54 AM [facility] Microalb, Ur 386.0(H) 0.0 - 29.0 mg/L LAB CHEMISTRY METHOD 08/01/2025 9:54 AM [facility] Comment:Results verified by repeat testing Microalb/Crea t Ratio 536(H) <30 mg/g creat LAB CHEMISTRY METHOD 08/01/2025 9:54 AM [facility] Urine Urine specimen obtained by clean catch procedure / Unknown Non-blood Collection / Unknown 08/01/2025 8:01 AM EST 08/01/2025 8:33 AM EST Joaquin Guaman MD LAB URINE ORDERABLES Final Re sult [facility] [address] [place] [address], * (ABNORMAL) Lipid panel with reflex to direct LDL (08/01/2025 7:59 AM EST) Cholesterol 140 0 - 200 mg/dL LAB CHEMISTRY METHOD 08/01/2025 9:36 AM [facility] Triglycerides 225(H) 0 - 150 mg/dL LAB CHEMISTRY METHOD 08/01/2025 9:36 AM [facility] HDL 38(L) >=40 mg/dL LAB CHEMISTRY METHOD 08/01/2025 9:36 AM [facility] LDL Calculated 57 0 - 100 mg/dL LAB CHEMISTRY METHOD 08/01/2025 9:36 AM [facility] Comment:Estimated LDL Calcul ated using equation: Total cholesterol - HDL cholesterol - (Triglycerides/5) VLDL Cholesterol Max 45 mg/dL LAB CHEMISTRY METHOD 08/01/2025 9:36 AM [facility] Non HDL Chol. (LDL+VLDL) 102 <145 mg/dL LAB CHEMISTRY METHOD 08/01/2025 9:36 AM [facility] Chol/HDL Ratio 3.7 0.0 - 4.4 LAB CHEMISTRY METHOD 08/01/2025 9:36 AM EST [facility] Blood Venous blood specimen / Unknown Venipuncture / Unknown 08/01/2025 7:59 AM EST 08/01/2025 8:32 AM EST Osito Infante MD LAB BLOOD ORDERABLES Final Resul t Performing Organization Address [facility] de Phone Number [facility] [address] [place] [address], * Prostate specific antigen diagnostic (08/01/2025 7:59 AM EST) PSA 2.75 0.00 - 4.00 ng/mL LAB CHEMISTRY METHOD 08/01/2025 10:14 AM EST [facility] Blood Venous blood specimen / Unknown Venipuncture / Unknown 08/01/2025 7:59 AM EST 08/01/2025 8:32 AM EST Narrative [facility] - 08/01/2025 10:14 AM EST The Siemens Advia Centaur Chemiluminescent Immunoassay is used. Results obtained with different assay methods or kits cannot be used interchangeably. Results cannot be interpreted as absolute evidence of the presence or absence of malignant disease. us Osito Infante MD LAB BLOOD ORDERABLES Final Resul t Performing Organization Address [facility] de Phone Number [facility] [address] [place] [address], * (ABNORMAL) CBC auto differential (08/01/2025 7:59 AM EST) Only the most recent of2 resultswithin the time period is included. WBC 7.2 4.8 - 10.8 K/[facility] LAB HEMETOLOGY METHOD 08/01/2025 8:41 AM EST [facility] RBC 4.80 4.50 - 5.50 M/mcL LAB HEMETOLOGY METHOD 08/01/2025 8:41 AM [facility] Hemoglobin 14.7 13.5 - 17.5 g/dL LAB HEMETOLOGY METHOD 08/01/2025 8:41 AM [facility] Hematocrit 45.8 42.0 - 54.0 % LAB HEMETOLOGY METHOD 08/01/2025 8:41 AM [facility] MCV 95.2 79.0 - 98.0 FL LAB HEMETOLOGY METHOD 08/01/2025 8:41 AM [facility] MCH 30.6 27.0 - 32.0 pcg LAB HEMETOLOGY METHOD 08/01/2025 8:41 AM [facility] MCHC 32.1 32.0 - 37.0 g/dL LAB HEMETOLOGY METHOD 08/01/2025 8:41 AM [facility] RDW 14.6 11.0 - 15.0 % LAB HEMETOLOGY METHOD 08/01/2025 8:41 AM [facility] Platelets 196 130 - 400 K/mcL LAB HEMETOLOGY METHOD 08/01/2025 8:41 AM [facility] MPV 10.1 7.0 - 11.0 FL LAB HEMETOLOGY METHOD 08/01/2025 8:41 AM [facility] NRBC 0.0 <1.0 % LAB HEMETOLOGY METHOD 08/01/2025 8:41 AM [facility] NRBC Absolute 0.00 <0.10 K/mcL LAB HEMETOLOGY METHOD 08/01/2025 8:41 AM [facility] Neutrophils Relative 61.4 % LAB HEMETOLOGY METHOD 08/01/2025 8:41 AM [facility] Lymphocytes Relative 26.0 % LAB HEMETOLOGY METHOD 08/01/2025 8:41 AM [facility] Monocytes Relative 7.2 % LAB HEMETOLOGY METHOD 08/01/2025 8:41 AM [facility] Eosinophils Relative 3.9 % LAB HEMETOLOGY METHOD 08/01/2025 8:41 AM [facility] Basophils Relative 0.7 % LAB HEMETOLOGY METHOD 08/01/2025 8:41 AM [facility] Immature Granulocytes Relative 0.8 % LAB HEMETOLOGY METHOD 08/01/2025 8:41 AM [facility] Neutrophils Absolute 4.45 1.50 - 7.00 K/mcL LAB HEMETOLOGY METHOD 08/01/2025 8:41 AM [facility] Lymphocytes Absolute 1.88 1.00 - 5.00 K/mcL LAB HEMETOLOGY METHOD 08/01/2025 8:41 AM [facility] Monocytes Absolute 0.52 0.20 - 1.00 K/mcL LAB HEMETOLOGY METHOD 08/01/2025 8:41 AM [facility] Eosinophils Absolute 0.28 0.00 - 0.50 K/mcL LAB HEMETOLOGY METHOD 08/01/2025 8:41 AM [facility] Basophils Absolute 0.05 0.00 - 0.20 K/mcL LAB HEMETOLOGY METHOD 08/01/2025 8:41 AM [facility] Immature Granulocytes Absolute 0.06(H) 0.00 - 0.03 K/mcL LAB HEMETOLOGY METHOD 08/01/2025 8:41 AM [facility] Blood Venous blood specimen / Unknown Venipuncture / Unknown 08/01/2025 7:59 AM EST 08/01/2025 8:33 AM EST us Osito Infante MD LAB BLOOD ORDERABLES Final Resul t [facility] [address] [place] [address], [place] [phone] * Vitamin D 25 hydroxy (08/01/2025 7:59 AM EST) Vit D, 25-Hydroxy 62.4 30.0 - 80.0 ng/mL LAB CHEMISTRY METHOD 08/01/2025 10:14 AM EST [facility] Blood Venous blood specimen / Unknown Venipuncture / Unknown 08/01/2025 7:59 AM EST 08/01/2025 8:32 AM EST Joaquin Guaman MD LAB BLOOD ORDERABLES Final Re sult [facility] [address] [place] [address], [place] [phone] * Phosphorus (08/01/2025 7:59 AM EST) Pathologist [facility] Phosphorus 2.9 2.5 - 4.5 mg/dL LAB CHEMISTRY METHOD 08/01/2025 9:11 AM EST [facility] Blood Venous blood specimen / Unknown Venipuncture / Unknown 08/01/2025 7:59 AM EST 08/01/2025 8:32 AM EST Joaquin Guaman MD LAB BLOOD ORDERABLES Final Re sult [facility] [address] [place] [address], [place] [phone] * Parathyroid hormone intact (08/01/2025 7:59 AM EST) Pathologist [facility] PTH 66.0 18.5 - 88.0 pcg/mL LAB CHEMISTRY METHOD 08/01/2025 10:14 AM EST [facility] Blood Venous blood specimen / Unknown Venipuncture / Unknown 08/01/2025 7:59 AM EST 08/01/2025 8:32 AM EST us Joaquin Guaman MD LAB BLOOD ORDERABLES Final Re sult Performing Organization Address City/[facility]/ZIP Co de Phone Number [facility] [address] [place] [address], [place] [phone] * Magnesium (08/01/2025 7:59 AM EST) [facility] Magnesium 2.2 1.9 - 2.6 mg/dL LAB CHEMISTRY METHOD 08/01/2025 9:11 AM EST [facility] Blood Venous blood specimen / Unknown Venipuncture / Unknown 08/01/2025 7:59 AM EST 08/01/2025 8:32 AM EST us Joaquin Guaman MD LAB BLOOD ORDERABLES Final Re sult Performing Organization Address [facility] de Phone Number [facility] [address] [place] [address], * (ABNORMAL) Hemoglobin A1c (08/01/2025 7:59 AM EST) [facility] Hemoglobin A1C 6.7(H) <6.5 % LAB CHEMISTRY METHOD 08/01/2025 11:06 AM EST [facility] Mean Bld Glu Estim. 146 mg/dL LAB CHEMISTRY METHOD 08/01/2025 11:06 AM EST [facility] Blood Venous blood specimen / Unknown Venipuncture / Unknown 08/01/2025 7:59 AM EST 08/01/2025 8:33 AM EST us Osito Infante MD LAB BLOOD ORDERABLES Final Resul t Performing Organization Address [facility]/ZIP Co de Phone Number [facility] [address] [place] [address], [place] [phone] * (ABNORMAL) Folate (08/01/2025 7:59 AM EST) [facility] Folate >20.0(H) 2.8 - 17.0 ng/ml LAB CHEMISTRY METHOD 08/01/2025 9:36 AM EST [facility] Blood Venous blood specimen / Unknown Venipuncture / Unknown 08/01/2025 7:59 AM EST 08/01/2025 8:32 AM EST us Osito Infante MD LAB BLOOD ORDERABLES Final Resul t Performing Organization Address City/[facility]/ZIP Co de Phone Number [facility] [address] [place] [address], [place] [phone] * Vitamin B12 (08/01/2025 7:59 AM EST) [facility] Vitamin B-12 779 250 - 900 pcg/mL LAB CHEMISTRY METHOD 08/01/2025 9:36 AM EST [facility] Blood Venous blood specimen / Unknown Venipuncture / Unknown 08/01/2025 7:59 AM EST 08/01/2025 8:32 AM EST us Osito Infante MD LAB BLOOD ORDERABLES Final Resul t Performing Organization Address [facility] Co de Phone Number [facility] [address] [place] [address], [place] [phone] * (ABNORMAL) Comprehensive metabolic panel (08/01/2025 7:59 AM EST) [facility] Sodium 138 133 - 145 mmol/L LAB CHEMISTRY METHOD 08/01/2025 9:36 AM EST [facility] Potassium 4.6 3.5 - 5.5 mmol/L LAB CHEMISTRY METHOD 08/01/2025 9:36 AM EST [facility] Chloride 103 96 - 110 mmol/L LAB CHEMISTRY METHOD 08/01/2025 9:36 AM EST [facility] CO2 29 21 - 32 mmol/L LAB CHEMISTRY METHOD 08/01/2025 9:36 AM EST [facility] Anion Gap 6 3 - 11 LAB CHEMISTRY METHOD 08/01/2025 9:36 AM [facility] Glucose 122(H) 70 - 100 mg/dL LAB CHEMISTRY METHOD 08/01/2025 9:36 AM [facility] BUN 31(H) 5 - 25 mg/dL LAB CHEMISTRY METHOD 08/01/2025 9:36 AM [facility] Creatinine 1.74(H) 0.70 - 1.30 mg/dL LAB CHEMISTRY METHOD 08/01/2025 9:36 AM [facility] eGFR 39(L) >=60 mL/min/1. 73m2 LAB CHEMISTRY METHOD 08/01/2025 9:36 AM [facility] Comment:Calculation based on the Chronic Kidney Disease Epidemiology Collaboration (CKD-EPI) equation refit without adjustment for race. BUN/Creatinine Ratio 17.8 LAB CHEMISTRY METHOD 08/01/2025 9:36 AM [facility] Calcium 9.8 8.5 - 10.5 mg/dL LAB CHEMISTRY METHOD 08/01/2025 9:36 AM [facility] AST (SGOT) 23 10 - 42 unit/L LAB CHEMISTRY METHOD 08/01/2025 9:36 AM [facility] ALT (SGPT) 19 10 - 60 unit/L LAB CHEMISTRY METHOD 08/01/2025 9:36 AM [facility] Alkaline Phosphatase 55 42 - 121 unit/L LAB CHEMISTRY METHOD 08/01/2025 9:36 AM [facility] Total Protein 7.0 6.0 - 8.0 g/dL LAB CHEMISTRY METHOD 08/01/2025 9:36 AM [facility] Albumin 3.4 3.2 - 5.0 g/dL LAB CHEMISTRY METHOD 08/01/2025 9:36 AM [facility] Total Bilirubin 0.5 0.0 - 1.4 mg/dL LAB CHEMISTRY METHOD 08/01/2025 9:36 AM EST [facility] Blood Venous blood specimen / Unknown Venipuncture / Unknown 08/01/2025 7:59 AM EST 08/01/2025 8:32 AM EST Osito Infante MD LAB BLOOD ORDERABLES Final Resul t Performing Organization Address City/[facility]/ZIP Co de Phone Number [facility] [address] [place] [address], [place] [phone] * (ABNORMAL) Sedimentation rate (05/31/2025 11:21 AM EDT) Sed Rate 37(H) 0 - 20 mm/hr LAB HEMETOLOGY METHOD 05/31/2025 2:37 PM EDT [facility] Blood Venous blood specimen / Unknown Venipuncture / Unknown 05/31/2025 11:21 AM EDT 05/31/2025 11:21 AM EDT us Henry Morris MD LAB BLOOD ORDERABLES Final Resul t Performing Organization Address City/[facility]/ZIP Co de Phone Number [facility] [address] [place] [address], [place] [phone] * C reactive protein, high sensitivity (05/31/2025 11:21 AM EDT) CRP, High Sensitivity 0.85 mg/L LAB CHEMISTRY METHOD 05/31/2025 4:19 PM EDT [facility] Comment: Cardio CRP Relative Risk [...] ORDERABLES Final Resul t Performing Organization Address [facility]/ZIP Co de Phone Number [facility] [address] [place] [address], [place] [phone] * Hepatic function panel (05/31/2025 11:21 AM EDT) Total Protein 7.2 6.0 - 8.0 g/dL LAB CHEMISTRY METHOD 05/31/2025 4:24 PM EDT [facility] Albumin 3.6 3.2 - 5.0 g/dL LAB CHEMISTRY METHOD 05/31/2025 4:24 PM EDT [facility] Total Bilirubin 0.5 0.0 - 1.4 mg/dL LAB CHEMISTRY METHOD [facility] Bilirubin, Direct 0.2 0.0 - 0.3 mg/dL LAB CHEMISTRY METHOD 05/31/2025 4:24 PM EDT [facility] Bilirubin, Indirect 0.3 0.0 - 1.1 mg/dL LAB CHEMISTRY METHOD 05/31/2025 4:24 PM EDT [facility] ALT (SGPT) 16 10 - 60 unit/L LAB CHEMISTRY METHOD 05/31/2025 4:[address] [facility] AST (SGOT) 24 10 - 42 unit/L LAB CHEMISTRY METHOD 05/31/2025 4:24 PM EDT [facility] Alkaline Phosphatase 60 42 - 121 unit/L LAB CHEMISTRY METHOD 05/31/2025 4:24 PM EDT [facility] Blood Venous blood specimen / Unknown Venipuncture / Unknown 05/31/2025 11:21 AM EDT 05/31/2025 11:21 AM EDT us Henry Morris MD LAB BLOOD ORDERABLES Final Resul t Performing Organization Address City/[facility]/ZIP Co de Phone Number [facility] [address] [place] [address], from Last 3 Months Insurance MEDICARE [facility] Advance Directives Documents on File Type Date Recorded Patient Surgical Scheduler Expl anation Health Care Decision (hx) 01/06/2012 AD PEREZ DIRECTIVE Health Care Decision (hx) 01/06/2012 AD PEREZ DIRECTIVE Health Care Decision (hx) 01/06/2012 AD PEREZ DIRECTIVE Care Teams Furniture Mover Relationship Specialty Start Date End Date Espinoza Infante MD [address] [place] [phone] PCP - General Internal Medicine 10/18/24
--- OUTSIDE RECORDS SUMMARY | 2025-08-01 12:05 | XMS_ITS | Encounter Summary ---
Author Organization [facility] Address [address] [place] [phone] Phone Care Team Providers Care Senior Sales Assistant Name Role Phone Osito Infante MD Primary Care Provider [phone] Encounter Details Date Type Department Care Team (Late st Contact Info) Description 01/09/2023 Procedure Pass [facility] Interventional [facility]iology [address] [place] [address] Social History Tobacco Use Types Packs/Day Years [...] on filedocumented in this encounter Care Teams Senior Sales Assistant Relationship Specialty Start Date End Date Osito Infante MD [address] [place] [phone] PCP - General Internal Medicine 11/29/22 documented as of this encounter Additional Source Comments The information contained in this document represents components of the legal health record. It is not the complete legal health record.[facility]
--- OUTSIDE RECORDS SUMMARY | 2025-08-01 12:05 | XMS_ITS | Clinical Summary ---
Author Organization [facility] Address [address] [address] Phone Care Team Providers Care Harnessmaker Name Role Phone Osito Infante MD Primary [...] patient's age to complete this topic IPV VACCINES Aged Out No longer eligi ble based on patient's age to complete this topic MENINGOCOCCAL VACCINES (ACWY) Aged Out No longer eligible based on patient's age to complete this topic MENINGOCOCCAL VACCINES (B) Aged Out N o longer eligible based on patient's age to complete this topic Medical Devices Implanted Type Area Hands Parter Device Identifier Shelf Expiration Date Model / Serial / Lot Filter Filter Leg Prosthetic Valve Prosthetic Valve Aorta Insurance MEDEX SUPPLEMENT MEDICARE PART A & B MEDICARE PART A & B [employer] MEDEX SUPPLEMENT MEDICARE PART A & B [employer] MEDEX SUPPLEMENT MEDICARE PART A & B [employer] MEDEX SUPPLEMENT MEDICARE PART A & B [employer] SUPPLEMENT MEDICARE PART A & B Care Teams Harnessmaker Relationship Specialty Start Date End Date Osito Infante MD [address] [place] [id number] PCP - General Internal Medicine 11/29/22 Additional Source Comments The information contained in this document represents components of the legal health record. It is not the complete legal health record.[facility]
--- OUTSIDE RECORDS SUMMARY | 2025-08-01 12:05 | XMS_ITS | Encounter Summary ---
Author Organization [facility] Address [address] [phone] Phone Care Team Providers Care Hot Roll Inspector Name Role Phone Stella Lemus Primary Care Provider [phone] Encounter Details Date Type Department Care Team (Late Contact Info) Description 08/01/2025 Orders Only [facility] [address] [place] [phone] Joaquin Guaman MD [address] [phone] Social History Tobacco Use Types Packs/Day Years [...] Encounters Date Type Department Care Team (Late Contact Info) Description 08/04/2025 10:45 AM EST Office Visit [facility] [address] [phone] Juliann Byrd ARNP [address] [phone] documented as of this encounter Procedures Procedure Name Priority Date/Time Associated Diagnosis Comments PROTEIN / CREATININE RATIO, URINE Routine 08/01/2025 8:01 AM EST URINE ALBUMIN / CREATININE RATIO Routine 08/01/2025 8:01 AM EST URINALYSIS RFX MICROSCOPIC Routine 08/01/2025 8:01 AM EST VITAMIN D 25 HYDROXY Routine 08/01/2025 7:59 AM EST PHOSPHATE ( PHOSPHORUS) Routine 08/01/2025 7:59 AM EST PTH, INTACT Routine 08/01/2025 7:59 AM EST MAGNESIUM Routine 08/01/2025 7:59 AM EST documented in this encounter Results * (ABNORMAL) Urine Albumin / Creatinine Ratio (08/01/2025 8:01 AM EST) Creatinine, Urine 72.0 mg/dL [facility] Microalbumin Urine Random 386.0(H) 0.0 - 29.0 mg/L [facility] Comment:Results verified by repeat testing Microalbumin/Cre atinine Ratio 536(H) <30 mg/g [facility] 08/01/2025 8:01 AM EST 08/01/2025 8:33 AM EST us Joaquin Guaman MD LAB URINE ORDERABLES Final Re sult [facility] [address] [place] [address] * (ABNORMAL) Protein, Total, Random Urine w/Creatinine (Protein/Creat Ratio) (08/01/2025 8:01 AM EST) Protein, Ur 70 mg/dL [facility] Urine Protein/Creati nine Ratio 0.97(H) <=0.20 mg/mg [facility] Creatinine, Urine 72.0 mg/dL [facility] 08/01/2025 8:01 AM EST 08/01/2025 8:33 AM EST us Joaquin Guaman MD LAB URINE ORDERABLES Final Re sult Performing Organization Address [facility] Co de Phone Number [facility] [address] [place] [address] * (ABNORMAL) Urinalysis Reflex Microscopic (08/01/2025 8:01 AM EST) Specific [place] 1.013 1.003 - 1.030 [facility] pH Urine 7.5 5.0 - 8.0 pH [facility] LEUKOCYTES, URINE Moderate(A) Negative [facility] Nitrite, Urine Positive(A) Negative [facility] Protein, Urine 100(A) <=Trace mg/dL [facility] Glucose Urine Negative Negative mg/dL [facility] Ketones, Urine Negative Negative mg/dL [facility] Urobilinogen Urine 0.2 0.2 - 1.0 mg/dL [facility] Bilirubin Urine Negative Negative [facility] Blood Urine Trace(A) Negative [facility] RBC, Urine 6(H) 0 - 4 /HPF [facility] WBC, Urine 50(H) 0 - 4 /HPF [facility] Squamous Epithelial, Urine 3 0 - 60 /LPF [facility] Bacteria, Urine Few(A) Negative /HPF [facility] 08/01/2025 8:01 AM EST 08/01/2025 8:33 AM EST Joaquin Guaman MD LAB URINE ORDERABLES Final Re sult Performing Organization Address City/[facility]/ZIP Co de Phone Number [facility] [address] [place] [address] * Vitamin D 25 Hydroxy (08/01/2025 7:59 AM EST) Vitamin D, 25-OH, Total 62.4 30.0 - 80.0 ng/mL [facility] 08/01/2025 7:59 AM EST 08/01/2025 8:32 AM EST Narrative [facility] - 08/01/2025 10:14 AM EST Patient can only have test 1x per yr per ins regulation. cjc us Joaquin Guaman MD LAB BLOOD ORDERABLES Final Re sult Performing Organization Address [facility] Co de Phone Number [facility] [address] [place] [address] * PTH, Intact (08/01/2025 7:59 AM EST) PTH 66.0 18.5 - 88.0 pcg/mL [facility] 08/01/2025 7:59 AM EST 08/01/2025 8:32 AM EST Joaquin Guaman MD LAB BLOOD ORDERABLES Final Re sult Performing Organization Address [facility] de Phone Number [facility] [address] [place] [address] * Phosphorus (08/01/2025 7:59 AM EST) Phosphorus 2.9 2.5 - 4.5 mg/dL [facility] 08/01/2025 7:59 AM EST 08/01/2025 8:32 AM EST Joaquin Guaman MD LAB BLOOD ORDERABLES Final Re sult Performing Organization Address [facility] Co de Phone Number [facility] [address] [place] [address] * Magnesium (08/01/2025 7:59 AM EST) Magnesium 2.2 1.9 - 2.6 mg/dL [facility] 08/01/2025 7:59 AM EST 08/01/2025 8:32 AM EST us Joaquin Guaman MD LAB BLOOD ORDERABLES Final Re sult [facility] ([facility] [address] [place] [address] documented in this encounter Visit Diagnoses Not on filedocumented in this encounter Care Teams Hot Roll Inspector Relationship Specialty Start Date End Date Stella Lemus [address] [place] [address] PCP - General 08/05/23 documented as of this encounter
== END 2025-08-01 10:56 | disposition home or self-care (01) ==
LOC: HO.ACS 10:19
PROVIDERS: PCP Physician Assistant Medical; Visit Provider Internal Medicine Medical Oncology
DX: Z79.01 Long term (current) use of anticoagulants (principal)

== ENCOUNTER → 2025-08-01 10:19 | Outpatient (BNVA) | payer MEDICARE, SELFPAY | PROVIDERS: PCP Physician Assistant Medical; Visit Provider Internal Medicine Medical Oncology | DX: I26.99 Other pulmonary embolism without acute cor pulmonale (principal); Z51.81 Encounter for therapeutic drug level monitoring; Z79.01 Long term (current) use of anticoagulants | CPT/HCPCS: 85610; 99211 ==

== ENCOUNTER 2025-08-09 10:03 | Outpatient (AMB) | payer MEDICARE, SELFPAY ==
[2025-08-09 10:12] LABS: Prothrombin Time Whole Bld POC 50.0 sec (11.1-13.5); ~PT, ~INR - Anti Coag Clinic 4.2 (0.9-1.1)
--- NOTE | 2025-08-09 10:17 | MHC.OFFVISCO ---
Intake Intake Visit Reasons: Anticoagulation Allergies lovenox Allergy (Severe, Uncoded 08/09/25 10:04) bleeding morphine Allergy (Severe, Uncoded 08/09/25 10:04) Rash kepra Adverse Reaction (Severe, Uncoded 08/09/25 10:04) Drowsy Medication List - Last Reconciled 08/09/25 by Deepika Payne RN amoxicillin 2,000 mg PO ONCE PRN azathioprine 150 mg PO DAILY calcium carbonate-vitamin D3 600 mg-10 mcg (400 unit) caps PO DAILY cholecalciferol (vitamin D3) 25 mcg PO DAILY donepezil 5 mg PO BEDTIME finasteride 5 mg PO DAILY gabapentin 600 mg PO BID metoprolol tartrate 12.5 mg PO BID multivitamin 1 tab PO DAILY nitrofurantoin monohyd/m-cryst 100 mg caps PO omega 7-ekf-wxr-fish oil 1,000 (120-180) mg (Fish Oil) 1 cap PO BID simvastatin 40 mg PO BEDTIME tamsulosin 0.8 mg PO DAILY triamcinolone acetonide 0.1% 1 appl topical DAILY PRN warfarin 2.5 mg See Protocol PO DAILY Nursing Note INR: 4.2 out of therapeutic range of 2.5-3.5 Medications and supplements reviewed Patient status: pt states Sertraline d/c'd due to drowsiness. Sertraline can raise the INR. LD was yesterday. Today he will be starting Donepezil for dimentia which has no effecton INR. Medications or supplements: as above noted Diet: usual diet for pt Denies any signs and symptoms of bleeding or clotting or unusual bruising Bleeding, bruising, clotting discussed Nutritional guidance given: to have a serving of greens today. Pt states he will have broccoli. Dose: decrease today's dose from 5mg to 2.5mg then usual dose of 5mg X 5 days and 7.5mg X 2 days (Mon & ) F/U INR Date: 08/17/25?? Patient verbalizing understanding of instructions with read back given. 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 Illness/Depression: No Coding Level of Care Code Est Patient Level 1 Diagnoses Current use of anticoagulant therapy Z79.01 Results AMB INR Fingerstick AMB INR Fingerstick 4.2 Last Edit by Deepika Payne RN on 08/09/25 10:16 interface delay Assessment & Plan Assessment & Plan (1) Current use of anticoagulant therapy: Code(s): Z79.01 - intermediate (current) use of anticoagulants Category: Medical
== END 2025-08-09 10:31 | disposition home or self-care (01) ==
LOC: HO.ACS 10:03
PROVIDERS: PCP Physician Assistant Medical; Visit Provider Internal Medicine Medical Oncology
DX: Z79.01 Long term (current) use of anticoagulants (principal)

== ENCOUNTER → 2025-08-09 10:03 | Outpatient (BNVA) | payer MEDICARE, SELFPAY | PROVIDERS: PCP Physician Assistant Medical; Visit Provider Internal Medicine Medical Oncology | DX: I26.99 Other pulmonary embolism without acute cor pulmonale (principal); Z51.81 Encounter for therapeutic drug level monitoring; Z79.01 Long term (current) use of anticoagulants | CPT/HCPCS: 85610; 99211 ==

== ENCOUNTER 2025-08-17 10:59 | Outpatient (AMB) | payer MEDICARE, SELFPAY ==
--- NOTE | 2025-08-17 11:08 | MHC.OFFVISCO ---
Intake Intake Visit Reasons: Anticoagulation Allergies lovenox Allergy (Severe, Uncoded 08/17/25 11:00) bleeding morphine Allergy (Severe, Uncoded 08/17/25 11:00) Rash kepra Adverse Reaction (Severe, Uncoded 08/17/25 11:00) Drowsy Medication List - Last Reconciled 08/17/25 by Soo Ho RN amoxicillin 2,000 mg PO ONCE PRN azathioprine 150 mg PO DAILY calcium carbonate-vitamin D3 600 mg-10 mcg (400 unit) caps PO DAILY cholecalciferol (vitamin D3) 25 mcg PO DAILY donepezil 5 mg PO BEDTIME finasteride 5 mg PO DAILY gabapentin 600 mg PO BID metoprolol tartrate 12.5 mg PO BID multivitamin 1 tab PO DAILY nitrofurantoin monohyd/m-cryst 100 mg caps PO omega 6-mxi-sol-fish oil 1,000 (120-180) mg (Fish Oil) 1 cap PO BID simvastatin 40 mg PO BEDTIME tamsulosin 0.8 mg PO DAILY triamcinolone acetonide 0.1% 1 appl topical DAILY PRN warfarin 2.5 mg See Protocol PO DAILY Nursing Note INR: 2.7- in therapeutic range 2.5-3.5 Medications and supplements reviewed- sertraline d/c recently, now on donepazil- no interaction with warfarin per micromedex No changes in health, diet, medications, or supplements, Denies any signs and symptoms of bleeding or bruising or clotting. Bleeding, bruising, clotting discussed Nutritional guidance given Dose: 7.5mg x 2, 5mg x 5 F/U INR: 2 weeks Patient verbalizes understanding of instructions given pt doing word search puzzles. pt states MRI of head today Anti-Coag Initial Assessment Social Hx Patient Tobacco Use Status: Never used Tobacco alcohol intake: current Alcohol intake frequency: holidays/special occasions only Cardiovascular Hx: HTN Lung Disease HX: DVT/PE and Other Endocrine Hx: Diabetes and Autoimmune disorders Blood Disorder Hx: Hyperlipidemia and Hepatitis Hx: Kidney Disease and Prostate Neurological Hx: Epilepsy/Seizures and Stroke/TIA Cancer HX: No Psych. Illness/Depression: No Coding Level of Care Code Est Patient Level 1 Diagnoses Current use of anticoagulant therapy Z79.01 Assessment & Plan Assessment & Plan (1) Current use of anticoagulant therapy: Code(s): Z79.01 - computer terminal operator (current) use of anticoagulants Category: Medical
[2025-08-17 11:09] LABS: Prothrombin Time Whole Bld POC 32.2 sec (11.1-13.5); ~PT, ~INR - Anti Coag Clinic 2.7 (0.9-1.1)
--- OUTSIDE RECORDS SUMMARY | 2025-08-17 13:34 | XMS_ITS | Encounter Summary ---
Author Organization [facility] Address [address] [place] [phone] Phone Care Team Providers Care Director Dance Name Role Phone Osito Infante MD Primary Care Provider Encounter Details Date Type Department Care Team (Late st Contact Info) Description 01/09/2023 Procedure Pass [facility] Cardiovascular And Interventional Radiology [address] [place] [address] Social History Tobacco Use Types Packs/Day Years [...] filedocumented in this encounter Care Teams Director Dance Relationship Specialty Start Date End Date Osito Infante MD [address] [place] [phone] PCP - General Internal Medicine 11/29/22 documented as of this encounter Additional Source Comments The information contained in this document represents components of the legal health record. It is not the complete legal health record.[facility]
--- OUTSIDE RECORDS SUMMARY | 2025-08-17 13:34 | XMS_ITS | Clinical Summary ---
Author Organization [facility] [address] [place] [phone] Phone Care Team Providers Care Home School Liaison Officer Name Role Phone Stella Lemus Primary Care Provider [phone] Allergies Active Allergy Reactions Criticality Noted Date [...] mouth 2 (two) times a day Active finasteride (PROSCAR) 5 MG tablet Take 1 tablet by mouth 1 (one) time each day Active Calcium Carbonate-Yesica min D 600-200 MG-UNIT capsule Take 1 capsule by mouth 1 (one) time each day Active amoxicillin (AMOXIL) 500 MG capsule Take 4 capsules by mouth Active nitrofurantoin (MACRODANTIN) 100 MG capsule Take by mouth 4 (four) times a day Active azaTHIOprine (IMURAN) 50 MG tablet 07/23/20 22 Active sertraline (ZOLOFT) 50 MG tablet Take 50 mg by mouth 1 (one) time each day 07/14/20 25 Active cholecalcifero l (VITAMIN D-3) 25 MCG (1000 UT) capsuleIndicat ions:Vitamin D deficiency, not otherwise specified Take 1 capsule (1,000 Units total) by mouth 3 (three) times a week 12 capsule 11 08/05/20 25 026 Active doxazosin (CARDURA) 4 MG tablet Take 1 tablet by mouth 1 (one) time each day 025 Discontinued(Me d List Maintenance) cholecalcifero l (VITAMIN D-3) 25 MCG (1000 UT) capsule Take 1 capsule by mouth every morning 025 Discontinued Active Problems Problem Noted Date Diagnosed Date Seizure 08/05/2023 08/05/2023 Obstructive sleep apnea syndrome 08/05/2023 08/05/2023 Confusional state 08/05/2023 08/05/2023 Cerebral infarction 08/05/2023 08/05/2023 Stage 3a chronic kidney disease 07/31/2022 Stage 3b chronic kidney disease 07/25/2021 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 [address] [phone] Juliann Byrd ARNP Stage 3b chronic kidney disease (HCC) (Primary Dx); Frequency of micturition; Vitamin D deficiency, not otherwise specified 08/01/2025 Orders Only [facility] [place] [id number] [phone] Joaquin Guaman MD from Last 3 Months [...] Sign Reading Time Taken Comments Blood Pressure 112/70 08/04/2025 10:59 AM EST Pulse 62 08/04/2025 10:59 AM EST Temperature - - Respiratory Rate - - Oxygen Saturation 98% 08/04/2025 10:59 AM EST Inhaled Oxygen Concentration - - Weight 94.3 kg (208 lb) 08/04/2025 10:59 AM EST Height 172.7 cm (5' 8 ) 06/25/2019 12:00 PM EDT Body Mass Index 31.63 06/25/2019 12:00 PM EDT Plan of Treatment Upcoming Encounters Date Type Department Care Team (Late st Contact Info) Description 02/01/2026 11:30 AM EDT Office Visit [facility] [address] [phone] Juliann Byrd ARNP [address] [phone] Health Maintenance Due Date Last Done Comments Hepatitis B Vaccine (1 of 3 - Risk 3-dose series) 2003 Influenza Vaccine (#1) 2025 3, 07/01/2017, 07/23/2015, Additional history exists Diabetes: Ophthalmology Exam 08/03/2025 Diabetes: Pedal Pulse Checked 08/03/2025 Diabetes: Sensory Foot Exam 08/03/2025 Diabetes: Visual Foot Exam 08/03/2025 Diabetes: Hemoglobin A1C 11/01/2025 08/01/2025, 07/23 Pneumococcal Vaccine: 50+ Years Completed 02/17/2015, 07/06/2010, 09/22/2007 Pneumococcal Vaccine: Peds ( 0 to 5 Years) and At-Risk Patients (6 to 49 Years) Discontinued 02/17/2015, 07/06/2010, 09/22/2007 Procedures Procedure Name Priority Date/Time Associated Diagnosis Comments URINALYSIS RFX MICROSCOPIC Routine 08/04/2025 11:58 AM EST URINE CULTURE Routine 08/04/2025 11:58 AM EST Stage 3b chronic kidney disease (HCC) Frequency of micturition URINE ALBUMIN / CREATININE RATIO Routine 08/01/2025 [...] Last 3 Months Results * (ABNORMAL) Urinalysis Reflex Microscopic (08/04/2025 11:58 AM EST) Only the most recent of2 resultswithin the time period is included. Specific [place] 1.014 1.003 - 1.030 [facility] pH Urine 7.5 5.0 - 8.0 pH [facility] LEUKOCYTES, URINE Moderate(A) Negative [facility] Nitrite, Urine Positive(A) Negative [facility] Protein, Urine 100(A) <=Trace mg/dL [facility] Glucose Urine Negative Negative mg/dL [facility] Ketones, Urine Negative Negative mg/dL [facility] Urobilinogen Urine 0.2 0.2 - 1.0 mg/dL [facility] Bilirubin Urine Negative Negative [facility] Blood Urine Trace(A) Negative [facility] RBC, Urine 0 0 - 4 /HPF [facility] WBC, Urine 10(H) 0 - 4 /HPF [facility] Squamous Epithelial, Urine 5 0 - 60 /LPF [facility] Crystals, Urine Light Triple Phosphate crystals. /LPF [facility] Bacteria, Urine Negative Negative /HPF [facility] 08/04/2025 11:5 8 AM EST 08/04/2025 12:27 PM EST Narrative NEMESIO - 08/04/2025 2:25 PM EST To be Done in ( For [facility] patients use ) For [facility] use Microscopic Required->Yes Culture if Indicated?->No Juliann Byrd [facility] URINE ORDERABLES Final Result [facility] [address] [place] [address] * (ABNORMAL) Urine culture (08/04/2025 11:58 AM EST) Culture Result, Urine STAPHYLOCOCCUS EPIDERMIDIS(A) [facility] Comment: >=100,000 CFU/mL Staphylococcus epidermidis The organism value for this result has been updated. These results have been appended to the previously preliminary verified report. Edited result: Previously reported as Gram Positive Cocci on 08/06/2025 at 1213 EST. Report [facility] Report Susceptibility Report [facility] Comment: Specimen Source: Urine Collected: Aug 04, 2025 11:58:41 Organism: STAPHYLOCOCCUS EPIDERMIDIS Antibiotics DAVIAN Interpretation Penicillin G IgG-mCnc 0.5 R Oxacillin Susc Islt 0.25 S Gentamicin Islt DAVIAN 0.5 S Ciprofloxacin Islt DAVIAN 8 R levoFLOXacin Islt DAVIAN 4 R Quinupristin+Dalfoprist Islt MIC0.25 S Linezolid Islt Grad strip 1 S Vancomycin Susc Islt 1 S Tetracycline Islt DAVIAN 2 S Nitrofurantoin Islt DAVIAN 256 R rifAMPin Susc Islt 0.5 S Urine Urine specimen obtained by clean catch procedure / Unknown 08/04/2025 11:58 AM EST 08/04/2025 12:27 PM EST Narrative NEMESIO - 08/07/2025 8:49 AM EST To be Done in ( For [facility] patients use ) For [employer] use Juliann Byrd [facility] URINE ORDERABLES Final Result [facility] [address] [place] [address] * (ABNORMAL) Protein, Total, Random Urine w/Creatinine (Protein/Creat Ratio) (08/01/2025 8:01 AM EST) Protein, Ur 70 mg/dL [facility] Urine Protein/Creati nine Ratio 0.97(H) <=0.20 mg/mg creat [facility] Creatinine, Urine 72.0 mg/dL [facility] 08/01/2025 8:01 AM EST 08/01/2025 8:33 AM EST Joaquin Guaman MD LAB URINE ORDERABLES Final Re sult Performing Organization Address City/[facility]/ZIP Co de Phone Number [facility] [address] [place] [address] * (ABNORMAL) Urine Albumin / Creatinine Ratio (08/01/2025 8:01 AM EST) Creatinine, Urine 72.0 mg/dL [facility] Microalbumin Urine Random 386.0(H) 0.0 - 29.0 mg/L [facility] Comment:Results verified by repeat testing Microalbumin/Cre atinine Ratio 536(H) <30 mg/g creat [facility] 08/01/2025 8:01 AM EST 08/01/2025 8:33 AM EST Joaquin Guaman MD LAB URINE ORDERABLES Final Re sult Performing Organization Address [facility]/ZIP Co de Phone Number [facility] [address] [place] [address] * Vitamin D 25 Hydroxy (08/01/2025 7:59 AM EST) Vitamin D, 25-OH, Total 62.4 30.0 - 80.0 ng/mL [facility] 08/01/2025 7:59 AM EST 08/01/2025 8:32 AM EST Narrative NEMESIO - 08/01/2025 10:14 AM EST Patient can only have test 1x per yr per ins regulation. cjc Joaquin Guaman MD LAB BLOOD ORDERABLES Final Re sult [facility] [address] [place] [address] * Phosphorus (08/01/2025 7:59 AM EST) Phosphorus 2.9 2.5 - 4.5 mg/dL [facility] 08/01/2025 7:59 AM EST 08/01/2025 8:32 AM EST Joaquin Guaman MD LAB BLOOD ORDERABLES Final Re sult Performing Organization Address City/[facility]/ZIP Co de Phone Number [facility] [address] [place] [address] * PTH, Intact (08/01/2025 7:59 AM EST) PTH 66.0 18.5 - 88.0 pcg/mL [facility] 08/01/2025 7:59 AM EST 08/01/2025 8:32 AM EST Joaquin Guaman MD LAB BLOOD ORDERABLES Final Re sult Performing Organization Address [facility] Co de Phone Number [facility] [address] [place] [address] * Magnesium (08/01/2025 7:59 AM EST) Magnesium 2.2 1.9 - 2.6 mg/dL [facility] 08/01/2025 7:59 AM EST 08/01/2025 8:32 AM EST Joaquin Guaman MD LAB BLOOD ORDERABLES Final Re sult Performing Organization Address City/[facility]/ZIP Co de Phone Number [facility] [address] [place] [address] from Last [address] [address] Medicare Medicare Care Teams Home School Liaison Officer Relationship Specialty Start Date End Date Stella Lemus [address] [place] [phone] PCP - General 08/05/23
--- OUTSIDE RECORDS SUMMARY | 2025-08-17 13:34 | XMS_ITS | Clinical Summary ---
Author Organization [facility] Address [address] [address] Phone Care Team Providers Care Vaccinator Name Role Phone Osito Infante MD Primary [...] this topic Medical Devices Implanted Type Area Online Producer Device Identifier Shelf Expiration Date Model / Serial / Lot Filter Filter Leg Prosthetic Valve Prosthetic Valve [employer] Insurance [employer] MEDEX SUPPLEMENT MEDICARE PART A & B MEDICARE PART A & B [employer] MEDEX SUPPLEMENT MEDICARE PART A & B [employer] MEDEX SUPPLEMENT MEDICARE PART A & B [employer] MEDEX SUPPLEMENT MEDICARE PART A & B [employer] SUPPLEMENT MEDICARE PART A & B Care Teams Vaccinator Relationship Specialty Start Date End Date Osito Infante MD [address] [place] [phone] (Work) PCP - General Internal Medicine 11/29/22 Additional Source Comments The information contained in this document represents components of the legal health record. It is not the complete legal health record.[facility]
--- OUTSIDE RECORDS SUMMARY | 2025-08-17 13:34 | XMS_ITS | Encounter Summary ---
Author Organization [facility] Address [address] [facility] [address] [place] [phone] Phone Care Team Providers Care Doughnut Icer Name Role Phone Oisto Infante MD Primary Care Provider [phone] Encounter Details Date Type Department Care Team (Late st Contact Info) Description 11/29/2022 Procedure Pass [facility] [address] [place] [address] Social History Tobacco Use Types Packs/Day Years [...] on filedocumented in this encounter Care Teams Doughnut Icer Relationship Specialty Start Date End Date Osito Infante MD [address] [place] [phone] PCP - General Internal Medicine 11/29/22 documented as of this encounter Additional Source Comments The information contained in this document represents components of the legal health record. It is not the complete legal health record.[facility]
--- OUTSIDE RECORDS SUMMARY | 2025-08-17 13:35 | XMS_ITS | Clinical Summary ---
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, [facility] V28) 12/01/2023 Factor V Leiden ([facility] V24) 12/01/2023 ARGENIS (obstructive sleep apnea) 12/01/2023 Seizures ([facility] V24, [facility] V28) 12/01/2023 Allergic rhinitis 07/21/2019 Autoimmune hepatitis ([facility] V24, [facility] V28) 07/21/2019 Overview (12/01/2023): 2012 BPH (benign prostatic hyperplasia) 07/21/2019 CAD (coronary artery disease) 07/21/2019 Overview (12/01/2023): CABG Carotid artery stenosis 07/21/2019 Overview (12/01/2023): Bilateral Cataract 07/21/2019 Chronic venous insufficiency 07/21/2019 Hyperlipidemia 07/21/2019 Hypertension 07/21/2019 Interstitial lung disease ([facility] V24, [facility] V28) 07/21/2019 Nephrolithiasis 07/21/2019 Type 2 diabetes mellitus ([facility] V24, [facility] V 28) 07/21/2019 DM (diabetes mellitus), type 2 with peripheral vascular complications ([facility] V24, [facility] V28) 07/21/2019 DM (diabetes mellitus), type 2 with renal complications ([facility] V24, [facility] V28) 07/21/2019 Type 2 diabetes mellitus wit h cataract ([facility] V24, [facility] V28) 07/21/2019 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 Aneurysm of ascending aorta ([facility] V24) 2016 Iron deficiency anemia 12/12/2015 Encounters Date Type Department Care Team Description 08/04/2025 11:50 AM EST Lab Draw Station - [address] [place] [id number] Chronic kidney disease, stage 3b ([facility] V24, [facility] V28); Frequency of micturition 08/01/2025 7:45 AM EST Lab Draw Station - [address] [place] [phone] Routine general medical examination at a health care facility; Diabetic complication ([facility] V24, [facility] V28); Hyperlipemia; Chronic kidney disease (CKD) stage G3b/A1, moderately decreased glomerular filtration rate (GFR) between 30-44 mL/min/1.73 square meter and albuminuria creatinine ratio les* ([facility] V24, [facility] V28); Renal osteodystrophy; Diabetes mellitus ([facility] V24, [facility] V28); Benign enlargement of prostate; Abnormal blood chemistry; Anemia of chronic renal failure; Memory loss; Screening for lipoid disorders; Vitamin B12 deficiency anemia; Avitaminosis D 06/07/2025 10:00 AM EDT Office Visit Gastroenterology - [place] [address] [place] [address] Henry Morris MD Autoimmune hepatitis ([facility] V24, [facility] V28) (Primary Dx) from Last 3 Months [...] Medical History Date Comments Factor V Leiden ([facility] V24) DX :Factor V Leiden (HCC) Seizures ([facility]/HCC V24, [facility]/HCC V28) DX:Seizures (HCC) DVT (deep venous thrombosis) ([facility]/HCC V24, [facility]/HCC V28) DX:DVT (deep venous thrombos is) (HCC) 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CMS/HCC V24, CMS/HCC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 (HCC) Aortic valve replaced DX:Aortic valve replaced ARGENIS (obstructive sleep apnea) DX :ARGENIS (obstructive sleep apnea) BPH (benign prostatic hyperplasia) 07/21/2019 DX:BPH (benign prostatic hyperplasia) CKD (chronic kidney disease) stage 3, GFR 30-59 ml/min (CMS/HCC V24, [facility] V28) DX:CKD (chronic kidney disea se) stage 3, GFR 30-59 ml/min ([facility]) Hyperlipidemia 07/21/2019 DX:Hyperlipidemi a Hypertension 07/21/2019 DX:Hypertension CAD (coronary artery disease) 07/21/2019 DX :CAD (coronary artery disease); COMMENT: CABG DM (diabetes mellitus), type 2 with renal complications ([facility]/HCC V24, [facility] V28) 07/21/2019 DX:DM (diabetes mellitus), t ype 2 with renal complications (HCC) Nephrolithiasis 07/21/2019 DX:Nephrolithias is Autoimmune hepatitis ([facility]/HC C V24, [facility]/HCC V28) 07/21/2019 DX:Autoimmune hepatitis (HCC ) Interstitial lung disease (C IN/HCC V24, [facility] V28) 07/21/2019 DX:Interstitial lung disease (HCC) Allergic rhinitis 07/21/2019 DX:Allergic rh initis Cataract 07/21/2019 DX:Cataract Type 2 diabetes mellitus wit h cataract ([facility]/HCC V24, [facility] V28) 07/21/2019 DX:Type 2 diabetes mellitus with cataract (HCC) Chronic venous insufficiency 07/21/2019 DX: Chronic venous insufficiency DM (diabetes mellitus), type 2 with peripheral vascular complications (CMS/HCC V24, [facility] V28) 07/21/2019 DX:DM (diabetes mellitus), type 2 with peripheral vascular complications (HCC) Carotid artery stenosis 07/21/2019 DX:Carot id artery stenosis; COMMENT: Bilateral History of DVT (deep vein thrombosis) 08/21/2018 DX:History of DVT (deep vein thrombosis) 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:Post -thrombotic syndrome Aneurysm of ascending aorta (CMS/HCC V24) 07/28/2017 DX:Aneurysm of ascending aor ta [...] 06/07/2025 9:48 AM EDT Plan of Treatment Upcoming Encounters Date Type Department Care Team (Late st Contact Info) Description 08/17/2025 3:30 PM EST Appointment [facility] [address] [place] [address] Health Maintenance Due Date Last Done Comments Diabetes: Annual Foot Exam 1955 Diabetes: Annual Retina Eye Exam 1955 DTaP,Tdap,and Td Vaccines (1 - Tdap) 1962 Zoster Vaccines (1 of 2) 1962 Falls Risk Assessment 08/24/2022 Social Influencers of Health Screening 08/24/2022 Medicare Annual Wellness Visit 11/27/2023 11/26/2022 Depression Screening 09/22/2024 COVID-19 Vaccine ( season) 2025 08/10/2024, 07/24/2023, 06/10/2022, Additional history exists Diabetes: Blood Sugar Control Test (HGBA1C) 01/29/2026 08/01/2025 Diabetes: Annual Urine Albumin-Creatinine Ratio (uACR) 08/01/2026 08/01/2025, 08/01/2025, 01/25/2025, Additional history exists Diabetes: Annual GFR (Glomerular Filtration Rate) 08/01/2026 08/01/2025, 02/23/2025, 01/25/2025, Additional history exists Hypertension/CHF/CAD Annual BMP Blood Test 08/01/2026 08/01/2025, 02/23/2025, 01/25/2025, Additional history exists Cholesterol Screening (Lipid Panel) 08/01/2030 08/01/2025 Pneumococcal Vaccine: 50+ Years Completed 02/17/2015, 07/06/2010, [...] Diagnosis Comments URINALYSIS WITH REFLEX MICROSCOPIC Routine 08/04/2025 11:58 AM EST Chronic kidney disease, stage 3b ([facility] V24, [facility] V28) Frequency of micturition URINALYSIS WITH REFLEX MICROSCOPIC Routine 08/04/2025 11:58 AM EST Chronic kidney disease, stage 3b ([facility] V24, [facility] V28) Frequency of micturition CULTURE URINE Routine 08/04/2025 11:58 AM EST Chronic kidney disease, stage 3b ([facility]/HCC V24, [facility] V28) Frequency of micturition URINALYSIS WITH REFLEX MICROSCOPIC Routine 08/01/2025 8:01 AM EST Routine general medical examination at a health care facility Diabetic complication ([facility] V24, [facility] V28) Hyperlipemia Chronic kidney disease (CKD) stage G3b/A1, moderately decreased glomerular filtration rate (GFR) between 30-44 mL/min/1.73 square meter and albuminuria creatinine ratio les* ([facility] V24, [facility] V28) Renal osteodystrophy URINALYSIS WITH REFLEX MICROSCOPIC Routine 08/01/2025 8:01 AM EST Routine general medical examination at a health care facility Diabetic complication ([facility] V24, [facility] V28) Hyperlipemia Chronic kidney disease (CKD) stage G3b/A1, moderately decreased glomerular filtration rate (GFR) between 30-44 mL/min/1.73 square meter and albuminuria creatinine ratio les* ([facility] V24, [facility] V28) Renal osteodystrophy MICROALBUMIN CREATININE URINE RATIO Routine 08/01/2025 8:01 AM EST Routine general medical examination at a health care facility Diabetic complication ([facility] V24, [facility] V28) Hyperlipemia Chronic kidney disease (CKD) stage G3b/A1, moderately decreased glomerular filtration rate (GFR) between 30-44 mL/min/1.73 square meter and albuminuria creatinine ratio les* ([facility] V24, [facility] V28) Renal osteodystrophy PROTEIN AND CREATININE WITH RATIO, URINE Routine 08/01/2025 8:01 AM EST Routine general medical examination at a health care facility Diabetic complication ([facility] V24, [facility] V28) Hyperlipemia Chronic kidney disease (CKD) stage G3b/A1, moderately decreased glomerular filtration rate (GFR) between 30-44 mL/min/1.73 square meter and albuminuria creatinine ratio les* ([facility] V24, [facility] V28) Renal osteodystrophy VITAMIN D 25 HYDROXY Routine 08/01/2025 7:59 AM EST Avitaminosis D CBC WITH AUTO DIFFERENTIAL Routine 08/01/2025 7:59 AM EST Diabetes mellitus ([facility] V24, [facility] V28) Benign enlargement of prostate Abnormal blood chemistry Anemia of chronic renal failure Hyperlipemia Memory loss Routine general medical examination at a health care facility Screening for lipoid disorders Vitamin B12 deficiency anemia FOLATE Routine 08/01/2025 7:59 AM EST Diabetes mellitus ([facility] V24, [facility] V28) Benign enlargement of prostate Abnormal blood chemistry Anemia of chronic renal failure Hyperlipemia Memory loss Routine general medical examination at a health care facility Screening for lipoid disorders Vitamin B12 deficiency anemia COMPREHENSIVE METABOLIC PANEL Routine 08/01/2025 7:59 AM EST Diabetes mellitus ([facility] V24, [facility] V28) Benign enlargement of prostate Abnormal blood chemistry Anemia of chronic renal failure Hyperlipemia Memory loss Routine general medical examination at a health care facility Screening for lipoid disorders Vitamin B12 deficiency anemia CBC AND DIFFERENTIAL Routine 08/01/2025 7:59 AM EST Diabetes mellitus ([facility] V24, [facility] V28) Benign enlargement of prostate Abnormal blood chemistry Anemia of chronic renal failure Hyperlipemia Memory loss Routine general medical examination at a health care facility Screening for lipoid disorders Vitamin B12 deficiency anemia LIPID PANEL WITH REFLEX TO DIRECT LDL Routine 08/01/2025 7:59 AM EST Diabetes mellitus ([facility] V24, [facility] V28) Benign enlargement of prostate Abnormal blood chemistry Anemia of chronic renal failure Hyperlipemia Memory loss Routine general medical examination at a health care facility Screening for lipoid disorders Vitamin B12 deficiency anemia VITAMIN B12 Routine 08/01/2025 7:59 AM EST Diabetes mellitus ([facility] V24, [facility] V28) Benign enlargement of prostate Abnormal blood chemistry Anemia of chronic renal failure Hyperlipemia Memory loss Routine general medical examination at a health care facility Screening for lipoid disorders Vitamin B12 deficiency anemia HEMOGLOBIN A1C Routine 08/01/2025 7:59 AM EST Diabetes mellitus ([facility] V24, [facility] V28) Benign enlargement of prostate Abnormal blood chemistry Anemia of chronic renal failure Hyperlipemia Memory loss Routine general medical examination at a [facility] facility Screening for lipoid disorders Vitamin B12 deficiency anemia PROSTATE SPECIFIC ANTIGEN DIAGNOSTIC Routine 08/01/2025 7:59 AM EST Diabetes mellitus ([facility] V24, [facility] V28) Benign enlargement of prostate Abnormal blood chemistry Anemia of chronic renal failure Hyperlipemia Memory loss Routine general medical examination at a [facility] Screening for lipoid disorders Vitamin B12 deficiency anemia PARATHYROID HORMONE INTACT Routine 08/01/2025 7:59 AM EST Routine general medical examination at a [facility] care facility Diabetic complication ([facility] V24, [facility] V28) Hyperlipemia Chronic kidney disease (CKD) stage G3b/A1, moderately decreased glomerular filtration rate (GFR) between 30-44 mL/min/1.73 square meter and albuminuria creatinine ratio les* ([facility] V24, [facility] V28) Renal osteodystrophy PHOSPHORUS Routine 08/01/2025 7:59 AM EST Routine general medical examination at a health care facility Diabetic complication ([facility] V24, [facility] V28) Hyperlipemia Chronic kidney disease (CKD) stage G3b/A1, moderately decreased glomerular filtration rate (GFR) between 30-44 mL/min/1.73 square meter and albuminuria creatinine ratio les* ([facility] V24, [facility] V28) Renal osteodystrophy MAGNESIUM Routine 08/01/2025 7:59 AM EST Routine general medical examination at a health care facility Diabetic complication ([facility] V24, [facility] V28) Hyperlipemia Chronic kidney disease (CKD) stage [...] Results * (ABNORMAL) Urinalysis with reflex microscopic (08/04/2025 11:58 AM EST) Only the most recent of2 resultswithin the time period is included. Specific [place] Urine 1.014 1.003 - 1.030 LAB URINALYSIS - AUTOMATED METHOD 08/04/2025 2:25 PM [facility] pH, Urine 7.5 5.0 - 8.0 pH LAB URINALYSIS - AUTOMATED METHOD 08/04/2025 2:25 PM [facility] Leukocytes, Urine Moderate(A) Negative LAB URINALYSIS - AUTOMATED METHOD 08/04/2025 2:25 PM [facility] Nitrite, Urine Positive(A) Negative LAB URINALYSIS - AUTOMATED METHOD 08/04/2025 2:25 PM [facility] Protein, Urine 100(A) <=Trace mg/dL LAB URINALYSIS - AUTOMATED METHOD 08/04/2025 2:25 PM [facility] Glucose, Urine Negative Negative mg/dL LAB URINALYSIS - AUTOMATED METHOD 08/04/2025 2:25 PM [facility] Ketones, Urine Negative Negative mg/dL LAB URINALYSIS - AUTOMATED METHOD 08/04/2025 2:25 PM [facility] Urobilinogen , Urine 0.2 0.2 - 1.0 mg/dL LAB URINALYSIS - AUTOMATED METHOD 08/04/2025 2:25 PM [facility] Bilirubin, Urine Negative Negative LAB URINALYSIS - AUTOMATED METHOD 08/04/2025 2:25 PM [facility] Blood, Urine Trace(A) Negative LAB URINALYSIS - AUTOMATED METHOD 08/04/2025 2:25 PM [facility] RBC, Urine 0 0 - 4 /HPF 08/04/2025 2:25 PM [facility] WBC, Urine 10(H) 0 - 4 /HPF 08/04/2025 2:25 PM [facility] Squamous Epithelial, Urine 5 0 - 60 /LPF 08/04/2025 2:25 PM [facility] Crystals, Urine Light Triple Phosphate crystals. /LPF 08/04/2025 2:25 PM [facility] Bacteria, Urine Negative Negative /HPF 08/04/2025 2:25 PM [facility] Urine Urine specimen obtained by clean catch procedure / Unknown Non-blood Collection / Unknown 08/04/2025 11:58 AM EST 08/04/2025 12:27 PM EST Juliann Byrd [facility] URINE ORDERABLES Final R esult [facility] [address] [place] [address], [place] [phone] * (ABNORMAL) Culture urine (08/04/2025 11:58 AM EST) Culture, Urine >=100,000 CFU/mL Staphylococcus epidermidis(A) DAVIAN 08/07/2025 8:49 AM EST [facility] Comment: The organism value for this result has been updated. These results have been appended to the previously preliminary verified report. Edited result: Previously reported as Gram Positive Cocci on 08/06/2025 at 1213 EST. Urine Urine specimen obtained by clean catch procedure / Unknown Non-blood Collection / Unknown 08/04/2025 11:58 AM EST 08/04/2025 12:27 PM EST Narrative Organism Antibiotic Method Susceptibility Staphylococcus epidermidis Benzylpenicillin DAVIAN >=0.5 ug/ml: Resistant Staphylococcus epidermidis Oxacillin DAVIAN <=0.25 ug/ml: Susceptible Staphylococcus epidermidis Gentamicin DAVIAN <=0.5 ug/ml: Susceptible Staphylococcus epidermidis Ciprofloxacin DAVIAN >=8 ug/ml: Resistant Staphylococcus epidermidis Levofloxacin DAVIAN 4 ug/ml: Resistant Staphylococcus epidermidis Quinupristin/Dalfopristin M IC <=0.25 ug/ml: Susceptible Staphylococcus epidermidis Linezolid DAVIAN 1 ug/ml: Susceptible Staphylococcus epidermidis Vancomycin DAVIAN 1 ug/ml: Susceptible Staphylococcus epidermidis Tetracycline DAVIAN 2 ug/ml: Susceptible Staphylococcus epidermidis Nitrofurantoin DAVIAN 256 ug/ml: Resistant Staphylococcus epidermidis Rifampin DAVIAN <=0.5 ug/ml: Susceptible Juliann Byrd [facility] MICROBIOLOGY - GENERAL O RDERABLES Final Result [facility] [address] [place] [address], * (ABNORMAL) Protein and creatinine with ratio, urine (08/01/2025 8:01 AM EST) Protein, Urine 70 mg/dL LAB CHEMISTRY METHOD 08/01/2025 9:19 AM EST [facility] Prot/Creat, Ur 0.97(H) <=0.20 mg/mg creat LAB CHEMISTRY METHOD 08/01/2025 9:19 AM [facility] Creatinine, Urine 72.0 mg/dL LAB CHEMISTRY METHOD 08/01/2025 9:19 AM [facility] Urine Urine specimen obtained by clean catch procedure / Unknown Non-blood Collection / Unknown 08/01/2025 8:01 AM EST 08/01/2025 8:33 AM EST Joaquin Guaman MD LAB URINE ORDERABLES Final Re sult [facility] [address] [place] [address], [place] [phone] * (ABNORMAL) Microalbumin creatinine urine ratio (08/01/2025 8:01 AM EST) Creatinine, Urine 72.0 mg/dL LAB CHEMISTRY METHOD 08/01/2025 9:54 AM [facility] Microalb, Ur 386.0(H) 0.0 - 29.0 mg/L LAB CHEMISTRY METHOD 08/01/2025 9:54 AM [facility] Comment:Results verified by repeat testing Microalb/Crea t Ratio 536(H) <30 mg/g creat LAB CHEMISTRY METHOD 08/01/2025 9:54 AM [facility] Urine Urine specimen obtained by clean catch procedure / Unknown Non-blood Collection / Unknown 08/01/2025 8:01 AM EST 08/01/2025 8:33 AM EST us Joaquin Guaman MD LAB URINE ORDERABLES Final Re sult [facility] [address] [place] [address], [place] [phone] * (ABNORMAL) Lipid panel with reflex to direct LDL (08/01/2025 7:59 AM EST) Cholesterol 140 0 - 200 mg/dL LAB CHEMISTRY METHOD 08/01/2025 9:36 AM [facility] Triglycerides 225(H) 0 - 150 mg/dL LAB CHEMISTRY METHOD 08/01/2025 9:36 AM [facility] HDL 38(L) >=40 mg/dL LAB CHEMISTRY METHOD 08/01/2025 9:36 AM [facility] LDL Calculated 57 0 - 100 mg/dL LAB CHEMISTRY METHOD 08/01/2025 9:36 AM [facility] Comment:Estimated LDL Calcul ated using equation: Total cholesterol - HDL cholesterol - (Triglycerides/5) VLDL Cholesterol Max 45 mg/dL LAB CHEMISTRY METHOD 08/01/2025 9:36 AM [facility] Non HDL Chol. (LDL+VLDL) 102 <145 mg/dL LAB CHEMISTRY METHOD 08/01/2025 9:36 AM [facility] Chol/HDL Ratio 3.7 0.0 - 4.4 LAB CHEMISTRY METHOD 08/01/2025 9:36 AM EST [facility] Blood Venous blood specimen / Unknown Venipuncture / Unknown 08/01/2025 7:59 AM EST 08/01/2025 8:32 AM EST us Osito Infante MD LAB BLOOD ORDERABLES Final Resul t [facility] [address] [place] [address], * Prostate specific antigen diagnostic (08/01/2025 7:59 AM EST) PSA 2.75 0.00 - 4.00 ng/mL LAB CHEMISTRY METHOD 08/01/2025 10:14 AM [facility] Blood Venous blood specimen / Unknown Venipuncture / Unknown 08/01/2025 7:59 AM EST 08/01/2025 8:32 AM EST Narrative [facility] - 08/01/2025 10:14 AM EST The Siemens Advia Centaur Chemiluminescent Immunoassay is used. Results obtained with different assay methods or kits cannot be used interchangeably. Results cannot be interpreted as absolute evidence of the presence or absence of malignant disease. Osito Infante MD LAB BLOOD ORDERABLES Final Resul t [facility] [address] [place] [address], * (ABNORMAL) CBC auto differential (08/01/2025 7:59 AM EST) Only the most recent of2 resultswithin the time period is included. WBC 7.2 4.8 - 10.8 K/mcL LAB HEMETOLOGY METHOD 08/01/2025 8:41 AM [facility] RBC 4.80 4.50 - 5.50 M/mcL LAB HEMETOLOGY METHOD 08/01/2025 8:41 AM [facility] Hemoglobin 14.7 13.5 - 17.5 g/dL LAB HEMETOLOGY METHOD 08/01/2025 8:41 AM [facility] Hematocrit 45.8 42.0 - 54.0 % LAB HEMETOLOGY METHOD 08/01/2025 8:41 AM [facility] MCV 95.2 79.0 - 98.0 FL LAB HEMETOLOGY METHOD 08/01/2025 8:41 AM [facility] MCH 30.6 27.0 - 32.0 pcg LAB HEMETOLOGY METHOD 08/01/2025 8:41 AM [facility] MCHC 32.1 32.0 - 37.0 g/dL LAB HEMETOLOGY METHOD 08/01/2025 8:41 AM [facility] RDW 14.6 11.0 - 15.0 % LAB HEMETOLOGY METHOD 08/01/2025 8:41 AM [facility] Platelets 196 130 - 400 K/mcL LAB HEMETOLOGY METHOD 08/01/2025 8:41 AM [facility] MPV 10.1 7.0 - 11.0 FL LAB HEMETOLOGY METHOD 08/01/2025 8:41 AM [facility] NRBC 0.0 <1.0 % LAB HEMETOLOGY METHOD 08/01/2025 8:41 AM [facility] NRBC Absolute 0.00 <0.10 K/mcL LAB HEMETOLOGY METHOD 08/01/2025 8:41 AM [facility] Neutrophils Relative 61.4 % LAB HEMETOLOGY METHOD 08/01/2025 8:41 AM [facility] Lymphocytes Relative 26.0 % LAB HEMETOLOGY METHOD 08/01/2025 8:41 AM [facility] Monocytes Relative 7.2 % LAB HEMETOLOGY METHOD 08/01/2025 8:41 AM [facility] [facility] Eosinophils Relative 3.9 % LAB HEMETOLOGY METHOD 08/01/2025 8:41 AM [facility] Basophils Relative 0.7 % LAB HEMETOLOGY METHOD 08/01/2025 8:41 AM [facility] Immature Granulocytes Relative 0.8 % LAB HEMETOLOGY METHOD 08/01/2025 8:41 AM [facility] Neutrophils Absolute 4.45 1.50 - 7.00 K/mcL LAB HEMETOLOGY METHOD 08/01/2025 8:41 AM [facility] Lymphocytes Absolute 1.88 1.00 - 5.00 K/mcL LAB HEMETOLOGY METHOD 08/01/2025 8:41 AM [facility] Monocytes Absolute 0.52 0.20 - 1.00 K/mcL LAB HEMETOLOGY METHOD 08/01/2025 8:41 AM [facility] Eosinophils Absolute 0.28 0.00 - 0.50 K/mcL LAB HEMETOLOGY METHOD 08/01/2025 8:41 AM EST [facility] Basophils Absolute 0.05 0.00 - 0.20 K/[facility] LAB HEMETOLOGY METHOD 08/01/2025 8:41 AM EST [facility] Immature Granulocytes Absolute 0.06(H) 0.00 - 0.03 K/[facility] LAB HEMETOLOGY METHOD 08/01/2025 8:41 AM EST [facility] Blood Venous blood specimen / Unknown Venipuncture / Unknown 08/01/2025 7:59 AM EST 08/01/2025 8:33 AM EST Osito Infante MD LAB BLOOD ORDERABLES Final Resul t Performing Organization Address City/[facility]/ZIP Co de Phone Number [facility] [address] [place] [address], * Vitamin D 25 hydroxy (08/01/2025 7:59 AM EST) Vit D, 25-Hydroxy 62.4 30.0 - 80.0 ng/mL LAB CHEMISTRY METHOD 08/01/2025 10:14 AM EST [facility] Blood Venous blood specimen / Unknown Venipuncture / Unknown 08/01/2025 7:59 AM EST 08/01/2025 8:32 AM EST Joaquin Guaman MD LAB BLOOD ORDERABLES Final Re sult [facility] [address] [place] [address], * Phosphorus (08/01/2025 7:59 AM EST) Phosphorus 2.9 2.5 - 4.5 mg/dL LAB CHEMISTRY METHOD 08/01/2025 9:11 AM EST [facility] Blood Venous blood specimen / Unknown Venipuncture / Unknown 08/01/2025 7:59 AM EST 08/01/2025 8:32 AM EST us Joaquin Guaman MD LAB BLOOD ORDERABLES Final Re sult Performing Organization Address City/[facility]/ZIP Co de Phone Number [facility] [address] [place] [address], [place] [phone] * Parathyroid hormone intact (08/01/2025 7:59 AM EST) PTH 66.0 18.5 - 88.0 pcg/mL LAB CHEMISTRY METHOD 08/01/2025 10:14 AM EST [facility] Blood Venous blood specimen / Unknown Venipuncture / Unknown 08/01/2025 7:59 AM EST 08/01/2025 8:32 AM EST us Joaquin Guaman MD LAB BLOOD ORDERABLES Final Re sult Performing Organization Address [facility]/ZIP Co de Phone Number [facility] [address] [place] [address], [place] [phone] * Magnesium (08/01/2025 7:59 AM EST) [facility] Magnesium 2.2 1.9 - 2.6 mg/dL LAB CHEMISTRY METHOD 08/01/2025 9:11 AM EST [facility] Blood Venous blood specimen / Unknown Venipuncture / Unknown 08/01/2025 7:59 AM EST 08/01/2025 8:32 AM EST us Joaquin Guaman MD LAB BLOOD ORDERABLES Final Re sult [facility] [address] [place] [address], [place] [phone] * (ABNORMAL) Hemoglobin A1c (08/01/2025 7:59 AM EST) Hemoglobin A1C 6.7(H) <6.5 % LAB CHEMISTRY METHOD 08/01/2025 11:06 AM EST [facility] Mean Bld Glu Estim. 146 mg/dL LAB CHEMISTRY METHOD 08/01/2025 11:06 AM EST [facility] Blood Venous blood specimen / Unknown Venipuncture / Unknown 08/01/2025 7:59 AM EST 08/01/2025 8:33 AM EST us Osito Infante MD LAB BLOOD ORDERABLES Final Resul t [facility] [address] [place] [address], [place] [phone] * (ABNORMAL) Folate (08/01/2025 7:59 AM EST) [facility] Folate >20.0(H) 2.8 - 17.0 ng/ml LAB CHEMISTRY METHOD 08/01/2025 9:36 AM EST [facility] Blood Venous blood specimen / Unknown Venipuncture / Unknown 08/01/2025 7:59 AM EST 08/01/2025 8:32 AM EST us Osito Infante MD LAB BLOOD ORDERABLES Final Resul t [facility] [address] [place] [address], [place] [phone] * Vitamin B12 (08/01/2025 7:59 AM EST) [facility] Vitamin B-12 779 250 - 900 pcg/mL LAB CHEMISTRY METHOD 08/01/2025 9:36 AM EST [facility] Blood Venous blood specimen / Unknown Venipuncture / Unknown 08/01/2025 7:59 AM EST 08/01/2025 8:32 AM EST us Osito Infante MD LAB BLOOD ORDERABLES Final Resul t [facility] [address] [place] [address], * (ABNORMAL) Comprehensive metabolic panel (08/01/2025 7:59 AM EST) Sodium 138 133 - 145 mmol/L LAB CHEMISTRY METHOD 08/01/2025 9:36 AM EST [facility] Potassium 4.6 3.5 - 5.5 mmol/L LAB CHEMISTRY METHOD 08/01/2025 9:36 AM [facility] Chloride 103 96 - 110 mmol/L LAB CHEMISTRY METHOD 08/01/2025 9:36 AM [facility] CO2 29 21 - 32 mmol/L LAB CHEMISTRY METHOD 08/01/2025 9:36 AM [facility] Anion Gap 6 3 - 11 LAB CHEMISTRY METHOD 08/01/2025 9:36 AM [facility] Glucose 122(H) 70 - 100 mg/dL LAB CHEMISTRY METHOD 08/01/2025 9:36 AM [facility] BUN 31(H) 5 - 25 mg/dL LAB CHEMISTRY METHOD 08/01/2025 9:36 AM [facility] Creatinine 1.74(H) 0.70 - 1.30 mg/dL LAB CHEMISTRY METHOD 08/01/2025 9:36 AM EST [facility] eGFR 39(L) >=60 mL/min/1. 73m2 LAB CHEMISTRY METHOD 08/01/2025 9:36 AM [facility] Comment:Calculation based on the Chronic Kidney Disease Epidemiology Collaboration (CKD-EPI) equation refit without adjustment for race. BUN/Creatinine Ratio 17.8 LAB CHEMISTRY METHOD 08/01/2025 9:36 AM [facility] Calcium 9.8 8.5 - 10.5 mg/dL LAB CHEMISTRY METHOD 08/01/2025 9:36 AM [facility] AST (SGOT) 23 10 - 42 unit/L LAB CHEMISTRY METHOD 08/01/2025 9:36 AM [facility] ALT (SGPT) 19 10 - 60 unit/L LAB CHEMISTRY METHOD 08/01/2025 9:36 AM [facility] Alkaline Phosphatase 55 42 - 121 unit/L LAB CHEMISTRY METHOD 08/01/2025 9:36 AM [facility] Total Protein 7.0 6.0 - 8.0 g/dL LAB CHEMISTRY METHOD 08/01/2025 9:36 AM [facility] Albumin 3.4 3.2 - 5.0 g/dL LAB CHEMISTRY METHOD 08/01/2025 9:36 AM [facility] Total Bilirubin 0.5 0.0 - 1.4 mg/dL LAB CHEMISTRY METHOD 08/01/2025 9:36 AM [facility] Blood Venous blood specimen / Unknown Venipuncture / Unknown 08/01/2025 7:59 AM EST 08/01/2025 8:32 AM EST us Osito Infante MD LAB BLOOD ORDERABLES Final Resul t [facility] [address] [place] [address], [place] [phone] * (ABNORMAL) Sedimentation rate (05/31/2025 11:21 AM EDT) Sed Rate 37(H) 0 - 20 mm/hr LAB HEMETOLOGY METHOD 05/31/2025 2:37 PM EDT [facility] Blood Venous blood specimen / Unknown Venipuncture / Unknown 05/31/2025 11:21 AM EDT 05/31/2025 11:21 AM EDT Henry Morris MD LAB BLOOD ORDERABLES Final Resul t [facility] [address] [place] [address], [place] [phone] * C reactive protein, high sensitivity (05/31/2025 11:21 AM EDT) [facility] CRP, High Sensitivity 0.85 mg/L LAB CHEMISTRY METHOD 05/31/2025 4:19 PM EDT [facility] Comment: Cardio CRP Relative Risk Categories Low <1.0 mg/L Average 1.0 - 3.0 mg/L High >3.0 mg/L Levels >10.0 mg/L should be ignored and repeated when the patient is stable and infection or inflammation is ruled out. Blood Venous blood specimen / Unknown Venipuncture / Unknown 05/31/2025 11:21 AM EDT 05/31/2025 11:21 AM EDT Henry Morris MD LAB BLOOD ORDERABLES Final Resul t [facility] [address] [place] [address], [place] [phone] * Hepatic function panel (05/31/2025 11:21 AM EDT) [facility] Total Protein 7.2 6.0 - 8.0 g/dL LAB CHEMISTRY METHOD 05/31/2025 4:24 PM EDT [facility] Albumin 3.6 3.2 - 5.0 g/dL LAB CHEMISTRY METHOD 05/31/2025 4:24 PM EDT [facility] Total Bilirubin 0.5 0.0 - 1.4 mg/dL LAB CHEMISTRY METHOD 05/31/2025 4:24 PM EDT [facility] Bilirubin, Direct 0.2 0.0 - 0.3 mg/dL LAB CHEMISTRY METHOD 05/31/2025 4:24 PM EDT [facility] Bilirubin, Indirect 0.3 0.0 - 1.1 mg/dL LAB CHEMISTRY METHOD 05/31/2025 4:24 PM EDT [facility] ALT (SGPT) 16 10 - 60 unit/L LAB CHEMISTRY METHOD 05/31/2025 4:24 PM EDT [facility] AST (SGOT) 24 10 - 42 unit/L LAB CHEMISTRY METHOD 05/31/2025 4:24 PM EDT [facility] Alkaline Phosphatase 60 42 - 121 unit/L LAB CHEMISTRY METHOD 05/31/2025 4:24 PM EDT [facility] Blood Venous blood specimen / Unknown Venipuncture / Unknown 05/31/2025 11:21 AM EDT 05/31/2025 11:21 AM EDT Henry Morris MD LAB BLOOD ORDERABLES Final Resul t 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
== END 2025-08-17 11:16 | disposition home or self-care (01) ==
LOC: HO.ACS 10:59
PROVIDERS: PCP Physician Assistant Medical; Visit Provider Internal Medicine Medical Oncology
DX: Z79.01 Long term (current) use of anticoagulants (principal)

== ENCOUNTER → 2025-08-17 10:59 | Outpatient (BNVA) | payer MEDICARE, SELFPAY | PROVIDERS: PCP Physician Assistant Medical; Visit Provider Internal Medicine Medical Oncology | DX: I26.99 Other pulmonary embolism without acute cor pulmonale (principal); Z51.81 Encounter for therapeutic drug level monitoring; Z79.01 Long term (current) use of anticoagulants | CPT/HCPCS: 85610; 99211 ==

== ENCOUNTER 2025-08-30 12:58 | Outpatient (AMB) | payer MEDICARE, SELFPAY ==
[2025-08-30 13:07] LABS: Prothrombin Time Whole Bld POC 57.3 sec (11.1-13.5); ~PT, ~INR - Anti Coag Clinic 4.8 (0.9-1.1)
--- NOTE | 2025-08-30 13:13 | MHC.OFFVISCO ---
Intake Intake Visit Reasons: Anticoagulation Allergies lovenox Allergy (Severe, Uncoded 08/30/25 13:02) bleeding morphine Allergy (Severe, Uncoded 08/30/25 13:02) Rash kepra Adverse Reaction (Severe, Uncoded 08/30/25 13:02) Drowsy Medication List - Last Reconciled 08/30/25 by Deepika Payne RN amoxicillin 2,000 mg PO ONCE PRN azathioprine 150 mg PO DAILY calcium carbonate-vitamin D3 600 mg-10 mcg (400 unit) caps PO DAILY cholecalciferol (vitamin D3) 25 mcg PO DAILY donepezil 5 mg PO BEDTIME finasteride 5 mg PO DAILY gabapentin 600 mg PO BID metoprolol tartrate 12.5 mg PO BID multivitamin 1 tab PO DAILY nitrofurantoin monohyd/m-cryst 100 mg caps PO omega 7-rkg-aro-fish oil 1,000 (120-180) mg (Fish Oil) 1 cap PO BID simvastatin 40 mg PO BEDTIME tamsulosin 0.8 mg PO DAILY triamcinolone acetonide 0.1% 1 appl topical DAILY PRN warfarin 2.5 mg See Protocol PO DAILY Nursing Note INR: 4.8 out of therapeutic range 2.5-3.5 Medications and supplements reviewed Patient status: feels well Medications or supplements: no changes Diet: pt states less of an appetite Denies any signs and symptoms of bleeding or clotting or unusual bruising Bleeding, bruising, clotting discussed Nutritional guidance given: to have a serving of greens today Dose: hold today's dose of 5mg then usual dose of 5mg X 5 days and 7.5mg X 2 days F/U INR Date: 09/05/25?? Patient verbalizing understanding of instructions given. 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 Illness/Depression: No Coding Level of Care Code Est Patient Level 1 Diagnoses Current use of anticoagulant therapy Z79.01 Results AMB INR Fingerstick AMB INR Fingerstick 4.8 Last Edit by Deepika Payne RN on 08/30/25 13:07 interface delay Assessment & Plan Assessment & Plan (1) Current use of anticoagulant therapy: Code(s): Z79.01 - intermediate (current) use of anticoagulants Category: Medical
== END 2025-08-30 13:16 | disposition home or self-care (01) ==
LOC: HO.ACS 12:58
PROVIDERS: PCP Physician Assistant Medical; Visit Provider Internal Medicine Medical Oncology
DX: Z79.01 Long term (current) use of anticoagulants (principal)

== ENCOUNTER → 2025-08-30 12:58 | Outpatient (BNVA) | payer MEDICARE, SELFPAY | PROVIDERS: PCP Physician Assistant Medical; Visit Provider Internal Medicine Medical Oncology | DX: I26.99 Other pulmonary embolism without acute cor pulmonale (principal); Z51.81 Encounter for therapeutic drug level monitoring; Z79.01 Long term (current) use of anticoagulants | CPT/HCPCS: 85610; 99211 ==

== ENCOUNTER 2025-09-05 11:08 | Outpatient (AMB) | payer MEDICARE, SELFPAY ==
[2025-09-05 11:16] LABS: Prothrombin Time Whole Bld POC 41.2 sec (11.1-13.5); ~PT, ~INR - Anti Coag Clinic 3.4 (0.9-1.1)
--- NOTE | 2025-09-05 11:23 | MHC.OFFVISCO ---
Intake Intake Visit Reasons: Anticoagulation Allergies lovenox Allergy (Severe, Uncoded 09/05/25 11:12) bleeding morphine Allergy (Severe, Uncoded 09/05/25 11:12) Rash kepra Adverse Reaction (Severe, Uncoded 09/05/25 11:12) Drowsy Medication List - Last Reconciled 09/05/25 by Deepika Payne, RN amoxicillin 2,000 mg PO ONCE PRN azathioprine 150 mg PO DAILY calcium carbonate-vitamin D3 600 mg-10 mcg (400 unit) caps PO DAILY cholecalciferol (vitamin D3) 25 mcg PO DAILY donepezil 5 mg PO BEDTIME finasteride 5 mg PO DAILY gabapentin 600 mg PO BID metoprolol tartrate 12.5 mg PO BID multivitamin 1 tab PO DAILY nitrofurantoin monohyd/m-cryst 100 mg caps PO omega 3-vxo-eum-fish oil 1,000 (120-180) mg (Fish Oil) 1 cap PO BID simvastatin 40 mg PO BEDTIME tamsulosin 0.8 mg PO DAILY triamcinolone acetonide 0.1% 1 appl topical DAILY PRN warfarin 2.5 mg See Protocol PO DAILY Nursing Note INR: 3.4 in therapeutic range of 2.5-3.5 Medications and supplements reviewed No changes in health, diet, medications, or supplements, Denies any signs and symptoms of bleeding or bruising or clotting. Bleeding, bruising, clotting discussed Nutritional guidance given to have a serving of greens today Dose: 5mg X 5 days and 7.5mg X 2 days (Mon & Thurs) F/U INR: 2 weeks Patient verbalizes understanding of instructions given Anti-Coag Initial Assessment Social Hx Patient Tobacco Use Status: Never used Tobacco alcohol intake: current Alcohol intake frequency: holidays/special occasions only Cardiovascular Hx: HTN Lung Disease HX: DVT/PE and Other Endocrine Hx: Diabetes and Autoimmune disorders Blood Disorder Hx: Hyperlipidemia and Hepatitis Hx: Kidney Disease and Prostate Neurological Hx: Epilepsy/Seizures and Stroke/TIA Cancer HX: No Psych. Illness/Depression: No Coding Level of Care Code Est Patient Level 1 Diagnoses Current use of anticoagulant therapy Z79.01 Assessment & Plan Assessment & Plan (1) Current use of anticoagulant therapy: Code(s): Z79.01 - jail (current) use of anticoagulants Category: Medical
== END 2025-09-05 11:27 | disposition home or self-care (01) ==
LOC: HO.ACS 11:08
PROVIDERS: PCP Physician Assistant Medical; Visit Provider Internal Medicine Medical Oncology
DX: Z79.01 Long term (current) use of anticoagulants (principal)

== ENCOUNTER → 2025-09-05 11:08 | Outpatient (BNVA) | payer MEDICARE, SELFPAY | PROVIDERS: PCP Physician Assistant Medical; Visit Provider Internal Medicine Medical Oncology | DX: Z79.01 Long term (current) use of anticoagulants (principal) | CPT/HCPCS: 85610; 99211 ==

== ENCOUNTER 2025-09-21 10:55 | Outpatient (AMB) | payer MEDICARE, SELFPAY ==
--- OUTSIDE RECORDS SUMMARY | 2025-06-30 05:30 | XMS_ITS ---
Author Organization [facility] [address] Address [address] [place] [address] Care Team Providers Care Muleser Name Role Phone CHRISTINA WALTERS Unavailable [phone] JUMANA INFANTE Unavailable [phone] Encounters Encounter Location Date Provider Diagnosis [facility] [address] [place] [address] 06/30/2025 JUMANA INFANTE Plan Of Treatment Next Appt Details Provider Name:JUMANA INFANTE, 09/28/2025 11:00:00 AM, [address], [place], [address], Progress Notes * SREEKANTH GARCIADOB:[birth year] (80 yo M)Acc No.[id number]:06/30/2025 Progress Notes Patient: Terell MARTIN SREEKANTH LOWERY Provider: Doyle Infante MD :1945 A ge:80 Y S ex:Male Date:06/30/2025 Address:[address] [id number] Care Plan Details* * Electronic signature of DILIA INFANTE MD on 09/21/2025 at 12:24 PM EST Sign off status: Pending * Provider: Doyle Infante MD Date: Generated for Printi ng/Faxing/eTransmitting on: 12:24 PM EST
--- NOTE | 2025-09-21 11:14 | MHC.OFFVISCO ---
Intake Intake Visit Reasons: Anticoagulation Allergies lovenox Allergy (Severe, Uncoded 09/21/25 11:10) bleeding morphine Allergy (Severe, Uncoded 09/21/25 11:10) Rash kepra Adverse Reaction (Severe, Uncoded 09/21/25 11:10) Drowsy Medication List - Last Reconciled 09/21/25 by Soo Ho RN amoxicillin 2,000 mg PO ONCE PRN azathioprine 150 mg PO DAILY calcium carbonate-vitamin D3 600 mg-10 mcg (400 unit) caps PO DAILY cholecalciferol (vitamin D3) 25 mcg PO DAILY donepezil 5 mg PO BEDTIME finasteride 5 mg PO DAILY gabapentin 600 mg PO BID metoprolol tartrate 12.5 mg PO BID multivitamin 1 tab PO DAILY nitrofurantoin monohyd/m-cryst 100 mg caps PO omega 4-ppp-hcx-fish oil 1,000 (120-180) mg (Fish Oil) 1 cap PO BID simvastatin 40 mg PO BEDTIME tamsulosin 0.8 mg PO DAILY triamcinolone acetonide 0.1% 1 appl topical DAILY PRN warfarin 2.5 mg See Protocol PO DAILY Nursing Note INR 3.8-?? out of therapeutic range- 2.5-3.5 Medications and supplements reviewed Patient status: no c.o Medications or supplements: no changes Diet: appetite is good Denies any signs and symptoms of bleeding or clotting or unusual bruising Bleeding, bruising, clotting discussed Nutritional guidance given: eat greens to lower Dose: reduce dose today to 2.5mg then cont reg dosing-5mg x 5, 7.5mg x 2 F/U INR Date : 2 weeks?? Patient verbalizing understanding of instructions given. 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 Illness/Depression: No Coding Level of Care Code Est Patient Level 1 Diagnoses Current use of anticoagulant therapy Z79.01 Assessment & Plan Assessment & Plan (1) Current use of anticoagulant therapy: Code(s): Z79.01 - ad terminal makeup operator (current) use of anticoagulants Category: Medical
[2025-09-21 11:15] LABS: Prothrombin Time Whole Bld POC 45.3 sec (11.1-13.5); ~PT, ~INR - Anti Coag Clinic 3.8 (0.9-1.1)
--- OUTSIDE RECORDS SUMMARY | 2025-09-21 12:25 | XMS_ITS | Clinical Summary ---
Author Organization [facility] Address [address] [place] [phone] Phone Care Team Providers Care Pipe Smoker Machine Operator Name Role Phone Stella Lemus Primary Care Provider [phone] Allergies Active Allergy Reactions Criticality Noted Date [...] 1 (one) time each day Active Calcium Carbonate-Vitam in D 600-200 MG-UNIT capsule Take 1 capsule by mouth 1 (one) time each day Active amoxicillin (AMOXIL) 500 MG capsule Take 4 capsules by mouth Active azaTHIOprine (IMURAN) 50 MG tablet 2 Active sertraline (ZOLOFT) 50 MG tablet Take 50 mg by mouth 1 (one) time each day 5 Active cholecalciferol (VITAMIN D-3) 25 MCG (1000 UT) capsuleIndicati ons:Vitamin D deficiency, not otherwise specified Take 1 capsule (1,000 Units total) by mouth 3 (three) times a week 12 capsule 11 5 08/05/20 26 Active nitrofurantoin (MACRODANTIN) 100 MG capsule Take by mouth 4 (four) times a day 08/26/20 25 Discontinu ed(Med List Gini walker) Active Problems Problem Noted Date Diagnosed Date Frequency of micturition 08/26/2025 Vitamin D deficiency, not otherwise specified Seizure 08/05/2023 08/05/2023 Obstructive sleep apnea syndrome 08/05/2023 08/05/2023 Confusional state 08/05/2023 08/05/2023 Cerebral infarction 08/05/2023 08/05/2023 Stage 3a chronic kidney disease 07/31/2022 Stage 3b chronic kidney disease 07/25/2021 Renal osteodystrophy 07/25/2021 Encounters Date Type Department Care Team Description 08/04/2025 10:45 AM EST Office Visit [facility] [address] [place] [phone] Juliann Byrd ARNP Stage 3b chronic kidney disease (HCC) (Primary Dx); Frequency of micturition; Vitamin D deficiency, not otherwise specified 08/01/2025 Orders Only [facility] [address] [phone] Joaquin Guaman MD from Last 3 Months [...] Office Visit [facility] [address] [phone] Juliann Byrd ARNP [address] [phone] Health Maintenance Due Date Last [...] resultswithin the time period is included. Specific [place] 1.014 1.003 - 1.030 [facility] pH Urine 7.5 5.0 - 8.0 pH [facility] LEUKOCYTES, URINE Moderate(A) Negative [facility] Nitrite, Urine Positive(A) Negative [facility] Protein, Urine 100(A) <=Trace mg/dL [facility] Glucose Urine Negative Negative mg/dL [facility] Ketones, Urine Negative Negative mg/dL [facility] Urobilinogen Urine 0.2 0.2 - 1.0 mg/dL [facility] Bilirubin Urine Negative Negative [facility] Blood Urine Trace(A) Negative [facility] RBC, Urine 0 0 - 4 /HPF [facility] WBC, Urine 10(H) 0 - 4 /HPF [facility] Squamous Epithelial, Urine 5 0 - 60 /LPF [facility] Crystals, Urine Light Triple Phosphate crystals. /LPF [facility] Bacteria, Urine Negative Negative /HPF [facility] 08/04/2025 11:5 8 AM EST 08/04/2025 12:27 PM EST Narrative NEMESIO - 08/04/2025 2:25 PM EST To be Done in ( For [facility] patients use ) For Telecardia use Microscopic Required->Yes Culture if Indicated?->No Juliann Byrd [facility] URINE ORDERABLES Final Result [facility] [address] [place] [address] * (ABNORMAL) Urine culture (08/04/2025 11:58 AM EST) Culture Result, Urine STAPHYLOCOCCUS EPIDERMIDIS(A) [facility] Comment: >=100,000 CFU/mL Staphylococcus epidermidis The organism value for this result has been updated. These results have been appended to the previously preliminary verified report. Edited result: Previously reported as Gram Positive Cocci on 08/06/2025 at 1213 EST. Report [facility] Report Susceptibility Report [facility] Comment: Specimen Source: Urine [...] ( For [facility] patients use ) For [facility] use Juliann BURNETT LAB URINE ORDERABLES Final Result [facility] [address] [place] [address] * (ABNORMAL) Protein, Total, Random Urine w/Creatinine (Protein/Creat Ratio) (08/01/2025 8:01 AM EST) Protein, Ur 70 mg/dL [facility] Urine Protein/Creati nine Ratio 0.97(H) <=0.20 mg/mg creat [facility] Creatinine, Urine 72.0 mg/dL [facility] 08/01/2025 8:01 AM EST 08/01/2025 8:33 AM EST Joaquin Guaman MD LAB URINE ORDERABLES Final Re sult Performing Organization Address [facility] Co de Phone Number [facility] [address] [place] [address] * (ABNORMAL) Urine Albumin / Creatinine Ratio (08/01/2025 8:01 AM EST) Creatinine, Urine 72.0 mg/dL [facility] Microalbumin Urine Random 386.0(H) 0.0 - 29.0 mg/L [facility] Comment:Results verified by repeat testing Microalbumin/Cre atinine Ratio 536(H) <30 mg/g creat [facility] 08/01/2025 8:01 AM EST 08/01/2025 8:33 AM EST Joaquin Guaman MD LAB URINE ORDERABLES Final Re sult Performing Organization Address [facility] de Phone Number [facility] [address] [place] [address] * Vitamin D 25 Hydroxy (08/01/2025 7:59 AM EST) Vitamin D, 25-OH, Total 62.4 30.0 - 80.0 ng/mL [facility] 08/01/2025 7:59 AM EST 08/01/2025 8:32 AM EST Narrative NEMESIO - 08/01/2025 10:14 AM EST Patient can only have test 1x per yr per ins regulation. c Joaquin Guaman MD LAB BLOOD ORDERABLES Final Re sult Performing Organization Address [facility] Co de Phone Number [facility] [address] [place] [address] * Phosphorus (08/01/2025 7:59 AM EST) Phosphorus 2.9 2.5 - 4.5 mg/dL [facility] 08/01/2025 7:59 AM EST 08/01/2025 8:32 AM EST us Joaquin Guaman MD LAB BLOOD ORDERABLES Final Re sult Performing Organization Address [facility] Co de Phone Number [facility] [address] [place] [address] * PTH, Intact (08/01/2025 7:59 AM EST) PTH 66.0 18.5 - 88.0 pcg/mL [facility] 08/01/2025 7:59 AM EST 08/01/2025 8:32 AM EST us Joaquin Guaman MD LAB BLOOD ORDERABLES Final Re sult Performing Organization Address [facility] de Phone Number [facility] [address] [place] [address] * Magnesium (08/01/2025 7:59 AM EST) Magnesium 2.2 1.9 - 2.6 mg/dL [facility] 08/01/2025 7:59 AM EST 08/01/2025 8:32 AM EST Joaquin Guaman MD LAB BLOOD ORDERABLES Final Re sult Performing Organization Address [facility] Co de Phone Number [facility] [address] [place] [address] from Last 3 Months Insurance Medicare Medicare Care Teams Pipe Smoker Machine Operator Relationship Specialty Start Date End Date Stella Lemus [address] [place] [address] PCP - General 08/05/23
--- OUTSIDE RECORDS SUMMARY | 2025-09-21 12:25 | XMS_ITS | Clinical Summary ---
Author Organization [address] Address [address] [place] [address] Phone Care Team Providers Care Aquatic Habitat Biologist Name Role Phone Espinoza Infante MD Primary Care Provider [phone] Allergies Active Allergy Reactions Criticality Noted Date [...] BY MOUTH TWICE DAILY 0 Active omega 8-atj-zqm-fish oil (Fish OiL) 1,000 (120-180) mg capsule [...] Encounters Date Type Department Care Team Description 08/17/2025 2:41 PM EST - 08/17/2025 11:59 PM EST Hospital Encounter [facility] [address] [place] [phone] Other amnesia; Unspecified dementia, mild, with anxiety ([facility] V24, [facility] V28) Discharge Disposition: Home or Self Care 08/04/2025 11:50 AM EST Lab Draw Station - [address] [phone] Chronic kidney disease, stage 3b (CMS/HCC V24, CMS/[facility] V28); Frequency of micturition 08/01/2025 7:45 AM EST Lab Draw Station - [address] [phone] Routine general medical examination at a health care facility; Diabetic complication (CMS/HCC V24, CMS/[facility] V28); Hyperlipemia; Chronic kidney disease (CKD) stage G3b/A1, moderately decreased glomerular filtration rate (GFR) between 30-44 mL/min/1.73 square meter and albuminuria creatinine ratio les* (CMS/HCC V24, CMS/HCC V28); Renal osteodystrophy; Diabetes mellitus ([facility] V24, [facility] V28); Benign enlargement of prostate; Abnormal blood chemistry; Anemia of chronic renal failure; Memory loss; Screening for lipoid disorders; Vitamin B12 deficiency anemia; Avitaminosis D from Last 3 Months Immunizations Immunization Administration [...] Medical History Date Comments Factor V Leiden ([facility] V24) DX :Factor V Leiden ([facility]) Seizures ([facility] V24, [facility] V28) DX:Seizures ([facility]) DVT (deep venous thrombosis) ([facility] V24, [facility] V28) DX:DVT (deep venous thrombos is) ([facility]) 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, [facility]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 ([facility]) Aortic valve replaced DX:Aortic valve replaced ARGENIS (obstructive sleep apnea) DX :ARGENIS (obstructive sleep apnea) BPH (benign prostatic hyperplasia) 07/21/2019 DX:BPH (benign prostatic hyperplasia) CKD (chronic kidney disease) stage 3, GFR 30-59 ml/min ([facility]/HCC V24, [facility]/HCC V28) DX:CKD (chronic kidney disea se) stage 3, GFR 30-59 ml/min ([facility]) Hyperlipidemia 07/21/2019 DX:Hyperlipidemi a Hypertension 07/21/2019 DX:Hypertension CAD (coronary artery disease) 07/21/2019 DX :CAD (coronary artery disease); COMMENT: CABG DM (diabetes mellitus), type 2 with renal complications ([facility]/HCC V24, [facility]/HCC V28) 07/21/2019 DX:DM (diabetes mellitus), t ype 2 with renal complications (HCC) Nephrolithiasis 07/21/2019 DX:Nephrolithias is Autoimmune hepatitis ([facility]/ C V24, [facility]/HCC V28) 07/21/2019 DX:Autoimmune hepatitis (HCC ) Interstitial lung disease ([facility] SD/HCC V24, [facility]/HCC V28) 07/21/2019 DX:Interstitial lung disease (HCC) Allergic rhinitis 07/21/2019 DX:Allergic rh initis Cataract 07/21/2019 DX:Cataract Type 2 diabetes mellitus wit h cataract ([facility]/HCC V24, [facility] V28) 07/21/2019 DX:Type 2 diabetes mellitus with cataract (HCC) Chronic venous insufficiency 07/21/2019 DX: Chronic venous insufficiency DM (diabetes mellitus), type 2 with peripheral vascular complications ([facility]/HCC V24, [facility] V28) 07/21/2019 DX:DM (diabetes mellitus), type 2 with peripheral vascular complications (HCC) Carotid artery stenosis 07/21/2019 DX:Carot id artery stenosis; COMMENT: Bilateral History of DVT (deep vein thrombosis) 08/21/2018 DX:History of DVT (deep vein thrombosis) 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:Post -thrombotic syndrome Aneurysm of ascending aorta ([facility] V24) 07/28/2017 DX:Aneurysm [...] Wellness Visit 11/27/2023 11/26/2022 Depression Screening 09/22/2024 Diabetes: Blood Sugar Control Test (HGBA1C) 01/29/2026 08/01/2025 COVID-19 Vaccine (9 - Moderna risk season) 2026 08/09/2025, 08/10/2024, 07/24/2023, Additional history exists Diabetes: Annual Urine Albumin-Creatinine Ratio (uACR) 08/01/2026 [...] Procedure Name Priority Date/Time Associated Diagnosis Comments MR BRAIN WO CONTRAST Routine 08/17/2025 3:44 PM EST Other amnesia Unspecified dementia, mild, with anxiety (CMS/HCC V24, CMS/HCC V28) URINALYSIS WITH REFLEX MICROSCOPIC Routine 08/04/2025 11:58 AM EST Chronic kidney disease, stage 3b (CMS/HCC V24, CMS/HCC V28) Frequency of micturition URINALYSIS WITH REFLEX MICROSCOPIC Routine 08/04/2025 11:58 AM EST Chronic kidney disease, stage 3b (CMS/HCC V24, CMS/HCC V28) Frequency of micturition CULTURE URINE Routine 08/04/2025 11:58 AM EST Chronic kidney disease, stage 3b (CMS/HCC V24, CMS/HCC V28) Frequency of micturition URINALYSIS WITH REFLEX MICROSCOPIC Routine 08/01/2025 8:01 AM EST Routine general medical examination at a [facility] care [facility] Diabetic complication ([facility] V24, [facility] V28) Hyperlipemia Chronic kidney disease (CKD) stage G3b/A1, moderately decreased glomerular filtration rate (GFR) between 30-44 mL/min/1.73 square meter and albuminuria creatinine ratio les* ([facility] V24, [facility] V28) Renal osteodystrophy URINALYSIS WITH REFLEX MICROSCOPIC Routine 08/01/2025 8:01 AM EST Routine general medical examination at a [facility] facility Diabetic complication ([facility] V24, [facility] V28) Hyperlipemia Chronic kidney disease (CKD) stage G3b/A1, moderately decreased glomerular filtration rate (GFR) between 30-44 mL/min/1.73 square meter and albuminuria creatinine ratio les* ([facility] V24, [facility] V28) Renal osteodystrophy MICROALBUMIN CREATININE URINE RATIO Routine 08/01/2025 8:01 AM EST Routine general medical examination at a [facility] facility Diabetic complication ([facility] V24, [facility] V28) Hyperlipemia Chronic kidney disease (CKD) stage G3b/A1, moderately decreased glomerular filtration rate (GFR) between 30-44 mL/min/1.73 square meter and albuminuria creatinine ratio les* ([facility] V24, [facility] V28) Renal osteodystrophy PROTEIN AND CREATININE WITH RATIO, URINE Routine 08/01/2025 8:01 AM EST Routine general medical examination at a health care facility Diabetic complication ([facility] V24, [facility] V28) Hyperlipemia Chronic kidney disease (CKD) stage G3b/A1, moderately decreased glomerular filtration rate (GFR) between 30-44 mL/min/1.73 square meter and albuminuria creatinine ratio les* ([facility] V24, [facility] V28) Renal osteodystrophy VITAMIN D 25 HYDROXY Routine 08/01/2025 7:59 AM EST Avitaminosis D CBC WITH AUTO DIFFERENTIAL Routine 08/01/2025 7:59 AM EST Diabetes mellitus (CMS/HCC V24, CMS/HCC V28) Benign enlargement of prostate Abnormal blood chemistry Anemia of chronic renal failure Hyperlipemia Memory loss Routine general medical examination at a health care facility Screening for lipoid disorders Vitamin B12 deficiency anemia FOLATE Routine 08/01/2025 7:59 AM EST Diabetes mellitus (CMS/HCC V24, CMS/HCC V28) Benign enlargement of prostate Abnormal blood chemistry Anemia of chronic renal failure Hyperlipemia Memory loss Routine general medical examination at a health care facility Screening for lipoid disorders Vitamin B12 deficiency anemia COMPREHENSIVE METABOLIC PANEL Routine 08/01/2025 7:59 AM EST Diabetes mellitus (CMS/HCC V24, CMS/[facility] V28) Benign enlargement of prostate Abnormal blood chemistry Anemia of chronic renal failure Hyperlipemia Memory loss Routine general medical examination at a [facility] care facility Screening for lipoid disorders Vitamin B12 deficiency anemia CBC AND DIFFERENTIAL Routine 08/01/2025 7:59 AM EST Diabetes mellitus (CMS/HCC V24, CMS/[facility] V28) Benign enlargement of prostate Abnormal blood chemistry Anemia of chronic renal failure Hyperlipemia Memory loss Routine general medical examination at a health care facility Screening for lipoid disorders Vitamin B12 deficiency anemia LIPID PANEL WITH REFLEX TO DIRECT LDL Routine 08/01/2025 7:59 AM EST Diabetes mellitus (CMS/HCC V24, CMS/[facility] V28) Benign enlargement of prostate Abnormal blood chemistry Anemia of chronic renal failure Hyperlipemia Memory loss Routine general medical examination at a health care facility Screening for lipoid disorders Vitamin B12 deficiency anemia VITAMIN B12 Routine 08/01/2025 7:59 AM EST Diabetes mellitus (CMS/HCC V24, CMS/HCC V28) Benign enlargement of prostate Abnormal blood chemistry Anemia of chronic renal failure Hyperlipemia Memory loss Routine general medical examination at a health care facility Screening for lipoid disorders Vitamin B12 deficiency anemia HEMOGLOBIN A1C Routine 08/01/2025 7:59 AM EST Diabetes mellitus (CMS/HCC V24, CMS/[facility] V28) Benign enlargement of prostate Abnormal blood chemistry Anemia of chronic renal failure Hyperlipemia Memory loss Routine general medical examination at a health care facility Screening for lipoid disorders Vitamin B12 deficiency anemia PROSTATE SPECIFIC ANTIGEN DIAGNOSTIC Routine 08/01/2025 7:59 AM EST Diabetes mellitus ([facility] V24, [facility] V28) Benign enlargement of prostate Abnormal blood chemistry Anemia of chronic renal failure Hyperlipemia Memory loss Routine general medical examination at a [facility] facility Screening for lipoid disorders Vitamin B12 deficiency anemia PARATHYROID HORMONE INTACT Routine 08/01/2025 7:59 AM EST Routine general medical examination at a [facility] care facility Diabetic complication ([facility] V24, [facility] V28) Hyperlipemia Chronic kidney disease (CKD) stage G3b/A1, moderately decreased glomerular filtration rate (GFR) between 30-44 mL/min/1.73 square meter and albuminuria creatinine ratio les* ([facility] V24, [facility] V28) Renal osteodystrophy PHOSPHORUS Routine 08/01/2025 7:59 AM EST Routine general medical examination at a [facility] facility Diabetic complication ([facility] V24, [facility] V28) Hyperlipemia Chronic kidney disease (CKD) stage G3b/A1, moderately decreased glomerular filtration rate (GFR) between 30-44 mL/min/1.73 square meter and albuminuria creatinine ratio les* ([facility] V24, [facility] V28) Renal osteodystrophy MAGNESIUM Routine 08/01/2025 7:59 AM EST Routine general medical examination at a [facility] care facility Diabetic complication ([facility] V24, [facility] V28) Hyperlipemia Chronic kidney disease (CKD) stage G3b/A1, moderately decreased glomerular filtration rate (GFR) between 30-44 mL/min/1.73 square meter and albuminuria creatinine ratio les* ([facility] V24, [facility] V28) Renal osteodystrophy from Last 3 Months Results * MR Brain wo Contrast (08/17/2025 3:44 PM EST) Anatomical Region Laterality Modality Head and Neck Magnetic Resonan ce 08/24/2025 4:40 PM EST Impressions 08/25/2025 8:43 AM EST Normal MRI appearance of the brain for patient age. -------- FINAL REPORT -------- Dictated By: Galdino Melgar Dictated Date: 08/24/2025 16:40 ET Assigned Physician: Galdino Melgar Reviewed and Electronically Signed By: Galdino Melgar Signed Date: 08/25/2025 08:43 ET Workstation ID: [id number] Transcribed By: Self Edit Transcribed Date: 08/24/2025 17:04 ET Narrative 08/25/2025 8:43 AM EST PROCEDURE: Noncontrast MRI of the brain. HISTORY: Memory loss, mild dementia w/ anxiety, unspecified dementia type. COMPARISON: None. TECHNIQUE: Multiplanar multisequence MRI of the brain without intravenous contrast administration. FINDINGS: BRAIN: No diffusion abnormality. No mass or extra-axial fluid collection. No hydrocephalus. The major intracranial flow voids are preserved. Age commensurate ventricles and sulci. ORBITS: Lens implants. SINUSES/MASTOIDS: Trace bilateral mastoid fluid. Mild rightward bowing of the nasal septum with a moderate apical septal spur. CALVARIUM: Normal. OTHER: The visualized skull base soft tissues are normal. Mild degenerative changes of the visualized cervical spine. Procedure Note Galdino Melgar MD - 08/25/2025 PROCEDURE: Noncontrast MRI of the brain. HISTORY: Memory loss, mild dementia w/ anxiety, unspecified dementiatype. COMPARISON: None. TECHNIQUE: Multiplanar multisequence MRI of the brain without intravenouscontrast administration. FINDINGS: BRAIN: No diffusion abnormality. No mass or extra-axial fluid collection.No hydrocephalus. The major intracranial flow voids are preserved. Agecommensurate ventricles and sulci. ORBITS: Lens implants. SINUSES/MASTOIDS: Trace bilateral mastoid fluid. Mild rightward bowing ofthe nasal septum with a moderate apical septal spur. CALVARIUM: Normal. OTHER: The visualized skull base soft tissues are normal. Milddegenerative changes of the visualized cervical spine. IMPRESSION: Normal MRI appearance of the brain for patient age. -------- FINAL REPORT -------- Dictated By: Galdino Melgar Dictated Date: 08/24/2025 16:40 ET Assigned Physician: Galdino Melgar Reviewed and Electronically Signed By: Galdino Melgar Signed Date: 08/25/2025 08:43 ET Workstation ID: [id number] Transcribed By: Self Edit Transcribed Date: 08/24/2025 17:04 ET Osito Infante MD [facility] MRI PROCEDURES Final Result * (ABNORMAL) Urinalysis with reflex microscopic (08/04/2025 11:58 AM EST) Only the most recent of2 resultswithin the time period is included. Specific [place] Urine 1.014 1.003 - 1.030 LAB URINALYSIS - AUTOMATED METHOD 08/04/2025 2:25 PM [facility] pH, Urine 7.5 5.0 - 8.0 pH LAB URINALYSIS - AUTOMATED METHOD 08/04/2025 2:25 PM [facility] Leukocytes, Urine Moderate(A) Negative LAB URINALYSIS - AUTOMATED METHOD 08/04/2025 2:25 PM [facility] Nitrite, Urine Positive(A) Negative LAB URINALYSIS - AUTOMATED METHOD 08/04/2025 2:25 PM [facility] Protein, Urine 100(A) <=Trace mg/dL LAB URINALYSIS - AUTOMATED METHOD 08/04/2025 2:25 PM [facility] Glucose, Urine Negative Negative mg/dL LAB URINALYSIS - AUTOMATED METHOD 08/04/2025 2:25 PM [facility] Ketones, Urine Negative Negative mg/dL LAB URINALYSIS - AUTOMATED METHOD 08/04/2025 2:25 PM [facility] Urobilinogen , Urine 0.2 0.2 - 1.0 mg/dL LAB URINALYSIS - AUTOMATED METHOD 08/04/2025 2:25 PM [facility] Bilirubin, Urine Negative Negative LAB URINALYSIS - AUTOMATED METHOD 08/04/2025 2:25 PM EST [facility] Blood, Urine Trace(A) Negative LAB URINALYSIS - AUTOMATED METHOD 08/04/2025 2:25 PM EST [facility] RBC, Urine 0 0 - 4 /HPF 08/04/2025 2:25 PM [facility] WBC, Urine 10(H) 0 - 4 /HPF 08/04/2025 2:25 PM [facility] Squamous Epithelial, Urine 5 0 - 60 /LPF 08/04/2025 2:25 PM [facility] Crystals, Urine Light Triple Phosphate crystals. /LPF 08/04/2025 2:25 PM [facility] Bacteria, Urine Negative Negative /HPF 08/04/2025 2:25 PM [facility] Urine Urine specimen obtained by clean catch procedure / Unknown Non-blood Collection / Unknown 08/04/2025 11:58 AM EST 08/04/2025 12:27 PM EST us Juliann Byrd [facility] LAB URINE ORDERABLES Final R esult [facility] [address] [place] [address], * (ABNORMAL) Culture urine (08/04/2025 11:58 AM EST) Culture, Urine >=100,000 CFU/mL Staphylococcus epidermidis(A) DAVIAN 08/07/2025 8:49 AM EST [facility] Comment: The organism value for [...] epidermidis Rifampin DAVIAN <=0.5 ug/ml: Susceptible Juliann MEJIA LAB MICROBIOLOGY - GENERAL O RDERABLES Final Result Performing Organization Address [facility]/ZIP Co de Phone Number [facility] [address] [place] [address], * (ABNORMAL) Protein and creatinine with ratio, urine (08/01/2025 8:01 AM EST) Protein, Urine 70 mg/dL LAB CHEMISTRY METHOD 08/01/2025 9:19 AM [facility] Prot/Creat, Ur 0.97(H) <=0.20 mg/mg creat LAB CHEMISTRY METHOD 08/01/2025 9:19 AM [facility] Creatinine, Urine 72.0 mg/dL LAB CHEMISTRY METHOD 08/01/2025 9:19 AM [facility] Urine Urine specimen obtained by clean catch procedure / Unknown Non-blood Collection / Unknown 08/01/2025 8:01 AM EST 08/01/2025 8:33 AM EST Joaquin Guaman MD LAB URINE ORDERABLES Final Re sult Performing Organization Address [facility]/ZIP Co de Phone Number [facility] [address] [place] [address], * (ABNORMAL) Microalbumin creatinine urine ratio (08/01/2025 8:01 AM EST) Creatinine, Urine 72.0 mg/dL LAB CHEMISTRY METHOD 08/01/2025 9:54 AM [facility] Microalb, Ur 386.0(H) 0.0 - 29.0 mg/L LAB CHEMISTRY METHOD 08/01/2025 9:54 AM [facility] Comment:Results verified by repeat testing Microalb/Crea t Ratio 536(H) <30 mg/g creat LAB CHEMISTRY METHOD 08/01/2025 9:54 AM [facility] Urine Urine specimen obtained by clean catch procedure / Unknown Non-blood Collection / Unknown 08/01/2025 8:01 AM EST 08/01/2025 8:33 AM EST Joaquin Guaman MD LAB URINE ORDERABLES Final Re sult [facility] [address] [place] [address], * (ABNORMAL) Lipid panel with reflex to direct LDL (08/01/2025 7:59 AM EST) Cholesterol 140 0 - 200 mg/dL LAB CHEMISTRY METHOD 08/01/2025 9:36 AM [facility] Triglycerides 225(H) 0 - 150 mg/dL LAB CHEMISTRY METHOD 08/01/2025 9:36 AM [facility] HDL 38(L) >=40 mg/dL LAB CHEMISTRY METHOD 08/01/2025 9:36 AM [facility] LDL Calculated 57 0 - 100 mg/dL LAB CHEMISTRY METHOD 08/01/2025 9:36 AM [facility] Comment:Estimated LDL Calcul ated using equation: Total cholesterol - HDL cholesterol - (Triglycerides/5) VLDL Cholesterol Max 45 mg/dL LAB CHEMISTRY METHOD 08/01/2025 9:36 AM EST [facility] Non HDL Chol. (LDL+VLDL) 102 <145 mg/dL LAB CHEMISTRY METHOD 08/01/2025 9:36 AM EST [facility] Chol/HDL Ratio 3.7 0.0 - 4.4 LAB CHEMISTRY METHOD 08/01/2025 9:36 AM EST [facility] Blood Venous blood specimen / Unknown Venipuncture / Unknown 08/01/2025 7:59 AM EST 08/01/2025 8:32 AM EST Osito Infante MD LAB BLOOD ORDERABLES Final Resul t Performing Organization Address City/[facility]/ZIP Co de Phone Number [facility] [address] [place] [address], [place] [phone] * Prostate specific antigen diagnostic (08/01/2025 7:59 AM EST) PSA 2.75 0.00 - 4.00 ng/mL LAB CHEMISTRY METHOD 08/01/2025 10:14 AM EST [facility] Blood Venous blood specimen / Unknown Venipuncture / Unknown 08/01/2025 7:59 AM EST 08/01/2025 8:32 AM EST Narrative [facility] - 08/01/2025 10:14 AM EST The Siemens Advia Centaur Chemiluminescent Immunoassay is used. Results obtained with different assay methods or kits cannot be used interchangeably. Results cannot be interpreted as absolute evidence of the presence or absence of malignant disease. Osito Infante MD LAB BLOOD ORDERABLES Final Resul t [facility] [address] [place] [address], [place] [phone] * (ABNORMAL) CBC auto differential (08/01/2025 7:59 AM EST) WBC 7.2 4.8 - 10.8 K/[facility] LAB HEMETOLOGY METHOD 08/01/2025 8:41 AM [facility] RBC 4.80 4.50 - 5.50 M/mcL LAB HEMETOLOGY METHOD 08/01/2025 8:41 AM [facility] Hemoglobin 14.7 13.5 - 17.5 g/dL LAB HEMETOLOGY METHOD 08/01/2025 8:41 AM [facility] Hematocrit 45.8 42.0 - 54.0 % LAB HEMETOLOGY METHOD 08/01/2025 8:41 AM [facility] MCV 95.2 79.0 - 98.0 FL LAB HEMETOLOGY METHOD 08/01/2025 8:41 AM [facility] MCH 30.6 27.0 - 32.0 pcg LAB HEMETOLOGY METHOD 08/01/2025 8:41 AM [facility] MCHC 32.1 32.0 - 37.0 g/dL LAB HEMETOLOGY METHOD 08/01/2025 8:41 AM [facility] RDW 14.6 11.0 - 15.0 % LAB HEMETOLOGY METHOD 08/01/2025 8:41 AM [facility] Platelets 196 130 - 400 K/mcL LAB HEMETOLOGY METHOD 08/01/2025 8:41 AM [facility] MPV 10.1 7.0 - 11.0 FL LAB HEMETOLOGY METHOD 08/01/2025 8:41 AM [facility] NRBC 0.0 <1.0 % LAB HEMETOLOGY METHOD 08/01/2025 8:41 AM [facility] NRBC Absolute 0.00 <0.10 K/mcL LAB HEMETOLOGY METHOD 08/01/2025 8:41 AM [facility] Neutrophils Relative 61.4 % LAB HEMETOLOGY METHOD 08/01/2025 8:41 AM [facility] Lymphocytes Relative 26.0 % LAB HEMETOLOGY METHOD 08/01/2025 8:41 AM [facility] Monocytes Relative 7.2 % LAB HEMETOLOGY METHOD 08/01/2025 8:41 AM [facility] Eosinophils Relative 3.9 % LAB HEMETOLOGY METHOD 08/01/2025 8:41 AM [facility] Basophils Relative 0.7 % LAB HEMETOLOGY METHOD 08/01/2025 8:41 AM [facility] Immature Granulocytes Relative 0.8 % LAB HEMETOLOGY METHOD 08/01/2025 8:41 AM [facility] Neutrophils Absolute 4.45 1.50 - 7.00 K/mcL LAB HEMETOLOGY METHOD 08/01/2025 8:41 AM [facility] Lymphocytes Absolute 1.88 1.00 - 5.00 K/mcL LAB HEMETOLOGY METHOD 08/01/2025 8:41 AM [facility] Monocytes Absolute 0.52 0.20 - 1.00 K/mcL LAB HEMETOLOGY METHOD 08/01/2025 8:41 AM [facility] Eosinophils Absolute 0.28 0.00 - 0.50 K/mcL LAB HEMETOLOGY METHOD 08/01/2025 8:41 AM [facility] Basophils Absolute 0.05 0.00 - 0.20 K/mcL LAB HEMETOLOGY METHOD 08/01/2025 8:41 AM [facility] Immature Granulocytes Absolute 0.06(H) 0.00 - 0.03 K/mcL LAB HEMETOLOGY METHOD 08/01/2025 8:41 AM [facility] Blood Venous blood specimen / Unknown Venipuncture / Unknown 08/01/2025 7:59 AM EST 08/01/2025 8:33 AM EST Osito Infante MD LAB BLOOD ORDERABLES Final Resul t Performing Organization Address [facility]/ZIP Co de Phone Number [place] [facility] [address] [place] [address], * Vitamin D 25 hydroxy (08/01/2025 7:59 AM EST) Vit D, 25-Hydroxy 62.4 30.0 - 80.0 ng/mL LAB CHEMISTRY METHOD 08/01/2025 10:14 AM EST [facility] Blood Venous blood specimen / Unknown Venipuncture / Unknown 08/01/2025 7:59 AM EST 08/01/2025 8:32 AM EST us Joaquin Guaman MD LAB BLOOD ORDERABLES Final Re sult Performing Organization Address [facility] de Phone Number [facility] [address] [place] [address], * Phosphorus (08/01/2025 7:59 AM EST) Phosphorus 2.9 2.5 - 4.5 mg/dL LAB CHEMISTRY METHOD 08/01/2025 9:11 AM EST [facility] Blood Venous blood specimen / Unknown Venipuncture / Unknown 08/01/2025 7:59 AM EST 08/01/2025 8:32 AM EST us Joaquin Guaman MD LAB BLOOD ORDERABLES Final Re sult Performing Organization Address City/[facility]/ZIP Co de Phone Number [facility] [address] [place] [address], * Parathyroid hormone intact (08/01/2025 7:59 AM EST) PTH 66.0 18.5 - 88.0 pcg/mL LAB CHEMISTRY METHOD 08/01/2025 10:14 AM EST [facility] Blood Venous blood specimen / Unknown Venipuncture / Unknown 08/01/2025 7:59 AM EST 08/01/2025 8:32 AM EST us Joaquin Guaman MD LAB BLOOD ORDERABLES Final Re sult [facility] [address] [place] [address], [place] [phone] * Magnesium (08/01/2025 7:59 AM EST) Pathologist [facility] Magnesium 2.2 1.9 - 2.6 mg/dL LAB CHEMISTRY METHOD 08/01/2025 9:11 AM EST [facility] Blood Venous blood specimen / Unknown Venipuncture / Unknown 08/01/2025 7:59 AM EST 08/01/2025 8:32 AM EST us Joaquin Guaman MD LAB BLOOD ORDERABLES Final Re sult Performing Organization Address [facility]/ZIP Co de Phone Number [facility] [address] [place] [address], [place] [phone] * (ABNORMAL) Hemoglobin A1c (08/01/2025 7:59 AM EST) [facility] Hemoglobin A1C 6.7(H) <6.5 % LAB CHEMISTRY METHOD 08/01/2025 11:06 AM EST [facility] Mean Bld Glu Estim. 146 mg/dL LAB CHEMISTRY METHOD 08/01/2025 11:06 AM EST [facility] Blood Venous blood specimen / Unknown Venipuncture / Unknown 08/01/2025 7:59 AM EST 08/01/2025 8:33 AM EST us Osito Infante MD LAB BLOOD ORDERABLES Final Resul t Performing Organization Address [facility]/ZIP Co de Phone Number [facility] [address] [place] [address], [place] [phone] * (ABNORMAL) Folate (08/01/2025 7:59 AM EST) Pathologist [facility] Folate >20.0(H) 2.8 - 17.0 ng/ml LAB CHEMISTRY METHOD 08/01/2025 9:36 AM EST [facility] Blood Venous blood specimen / Unknown Venipuncture / Unknown 08/01/2025 7:59 AM EST 08/01/2025 8:32 AM EST us Osito Infante MD LAB BLOOD ORDERABLES Final Resul t Performing Organization Address City/[facility]/ZIP Co de Phone Number [facility] [address] [place] [address], [place] [phone] * Vitamin B12 (08/01/2025 7:59 AM EST) [facility] Vitamin B-12 779 250 - 900 pcg/mL LAB CHEMISTRY METHOD 08/01/2025 9:36 AM EST [facility] Blood Venous blood specimen / Unknown Venipuncture / Unknown 08/01/2025 7:59 AM EST 08/01/2025 8:32 AM EST us Osito Infante MD LAB BLOOD ORDERABLES Final Resul t Performing Organization Address City/[facility]/ZIP Co de Phone Number [facility] [address] [place] [address], [place] [phone] * (ABNORMAL) Comprehensive metabolic panel (08/01/2025 7:59 AM EST) [facility] Sodium 138 133 - 145 mmol/L LAB CHEMISTRY METHOD 08/01/2025 9:36 AM EST [facility] Potassium 4.6 3.5 - 5.5 mmol/L LAB CHEMISTRY METHOD 08/01/2025 9:36 AM EST [facility] Chloride 103 96 - 110 mmol/L LAB CHEMISTRY METHOD 08/01/2025 9:36 AM EST [facility] CO2 29 21 - 32 mmol/L LAB CHEMISTRY METHOD 08/01/2025 9:36 AM [facility] Anion Gap 6 3 - 11 LAB CHEMISTRY METHOD 08/01/2025 9:36 AM [facility] Glucose 122(H) 70 - 100 mg/dL LAB CHEMISTRY METHOD 08/01/2025 9:36 AM [facility] BUN 31(H) 5 - 25 mg/dL LAB CHEMISTRY METHOD 08/01/2025 9:36 AM [facility] Creatinine 1.74(H) 0.70 - 1.30 mg/dL LAB CHEMISTRY METHOD 08/01/2025 9:36 AM [facility] eGFR 39(L) >=60 mL/min/1. 73m2 LAB CHEMISTRY METHOD 08/01/2025 9:36 AM [facility] Comment:Calculation based on the Chronic Kidney Disease Epidemiology Collaboration (CKD-EPI) equation refit without adjustment for race. BUN/Creatinine Ratio 17.8 LAB CHEMISTRY METHOD 08/01/2025 9:36 AM [facility] Calcium 9.8 8.5 - 10.5 mg/dL LAB CHEMISTRY METHOD 08/01/2025 9:36 AM [facility] AST (SGOT) 23 10 - 42 unit/L LAB CHEMISTRY METHOD 08/01/2025 9:36 AM [facility] ALT (SGPT) 19 10 - 60 unit/L LAB CHEMISTRY METHOD 08/01/2025 9:36 AM [facility] Alkaline Phosphatase 55 42 - 121 unit/L LAB CHEMISTRY METHOD 08/01/2025 9:36 AM [facility] Total Protein 7.0 6.0 - 8.0 g/dL LAB CHEMISTRY METHOD 08/01/2025 9:36 AM [facility] Albumin 3.4 3.2 - 5.0 g/dL LAB CHEMISTRY METHOD 08/01/2025 9:36 AM [facility] Total Bilirubin 0.5 0.0 - 1.4 mg/dL LAB CHEMISTRY METHOD 08/01/2025 9:36 AM EST [facility] Blood Venous blood specimen / Unknown Venipuncture / Unknown 08/01/2025 7:59 AM EST 08/01/2025 8:32 AM EST us Osito Infante MD LAB BLOOD ORDERABLES Final Resul t [facility] [address] [place] [address], from Last 3 Months Insurance MEDICARE [facility] Advance Directives Documents on File Type Date Recorded Patient Export Administrator Expl anation Health Care Decision (hx) 01/06/2012 AD PEREZ DIRECTIVE Health Care Decision (hx) 01/06/2012 AD PEREZ DIRECTIVE Health Care Decision (hx) 01/06/2012 AD PEREZ DIRECTIVE Care Teams Aquatic Habitat Biologist Relationship Specialty Start Date End Date Espinoza Infante MD [address] [place] [phone] PCP - General Internal Medicine 10/18/24
--- OUTSIDE RECORDS SUMMARY | 2025-09-21 12:25 | XMS_ITS | Clinical Summary ---
Author Organization [facility] Address [address] [address] Phone Care Team Providers Care Lead Pastor Name Role Phone Osito Infante MD Primary Care Provider [phone] Allergies Active Allergy Reactions Criticality Noted Date [...] this topic Medical Devices Implanted Type Area Bus System Operator Device Identifier Shelf Expiration Date Model / Serial / Lot Filter Filter Leg Prosthetic Valve Prosthetic Valve Aorta Insurance [employer] MEDEX SUPPLEMENT MEDICARE PART A & B MEDICARE PART A & B [employer] MEDEX SUPPLEMENT MEDICARE PART A & B [employer] MEDEX SUPPLEMENT MEDICARE PART A & B [employer] MEDEX SUPPLEMENT MEDICARE PART A & B MEDEX SUPPLEMENT MEDICARE PART A & B Care Teams Lead Pastor Relationship Specialty Start Date End Date Osito Infante MD [address] [place] [phone] (Work) PCP - General Internal Medicine 11/29/22 Additional Source Comments The information contained in this document represents components of the legal health record. It is not the complete legal health record.[facility]
--- OUTSIDE RECORDS SUMMARY | 2025-09-21 12:25 | XMS_ITS | Patient Health Record ---
Author Organization [facility] Address [address] [place] [address] Care Team Providers Care Film Critic Name Role Phone CHRISTINA WALTERS Unavailable [phone] JUMANA INFANTE Unavailable [phone] Allergies Allergen (clinical drug ingredient) Drug/Non Drug Allergy documented on EMR Reaction Allergy Type Onset Date Status morphine morphine (uncoded) Unknown Allergy A ctive enoxaparin Lovenox BLEEDS Drug Allergy Active Results Component Value Reference Range Flag Notes PPC Hemoglobin A1C Reviewed date:07/13/2025 11:49:20 AM Interpretation: Performing Lab: Notes/Report: HGA1C 6.7 FOLATE Reviewed date:08/09/2025 02:13:48 PM Interpretation: Performing Lab: Notes/Report: Folate >20.0 2.8-17.0 ng/ml H PROSTATE SPECIFIC ANTIGEN DI AGNOSTIC Reviewed date:08/04/2025 11:35:56 AM Interpretation: Performing Lab: Notes/Report: The Siemens Advia Centaur Chemiluminescent Immunoassay is used. Results obtained with different assay methods or kits cannot be used interchangeably. Results cannot be interpreted as absolute evidence of the presence or absence of malignant disease. PSA 2.75 0.00-4.00 ng/mL MR BRAIN WO CONTRAST (Not ye t reviewed by provider) Interpretation: Performing Lab: Notes/Report: See Note [facility], a member of [facility] PROCEDURE: Noncontrast MRI of the brain. HISTORY: [...] degenerative changes of the visualized cervical spine. IMPRESSION: Normal MRI appearance of the brain for patient age. -------- FINAL REPORT -------- Dictated By: Galdino Melgar Dictated Date: 08/24/2025 16:40 ET Assigned Physician: Galdino Melgar Reviewed and Electronically Signed By: Galdino Melgar Signed Date: 08/25/2025 08:43 ET Workstation ID: [id number] Transcribed By: Self Edit Transcribed Date: 08/24/2025 17:04 ET VITAMIN B12 Reviewed date:08/01/2025 09:45:30 AM Interpretation: Performing Lab: Notes/Report: Vitamin B-12 779 250-900 pcg/mL HEMOGLOBIN A1C Reviewed date:08/02/2025 09:18:17 AM Interpretation: Performing Lab: Notes/Report: Hemoglobin A1C 6.7 <6.5 % H Mean Bld Glu Estim. 146 COMPREHENSIVE METABOLIC PANE L Reviewed date:08/01/2025 09:43:18 AM Interpretation: Performing Lab: Notes/Report: Sodium 138 133-145 mmol/L Potassium 4.6 3.5-5.5 mmol/L Chloride 103 96-110 mmol/L CO2 29 21-32 mmol/L Anion Gap 6 3-11 Glucose 122 70-100 mg/dL H BUN 31 5-25 mg/dL H Creatinine 1.74 0.70-1.30 mg/dL H eGFR 39 >=60 mL/min/1.73m2 L Calcul ation based on the Chronic Kidney Disease Epidemiology Collaboration (CKD-EPI) equation refit without adjustment for race. BUN/Creatinine Ratio 17.8 Calcium 9.8 8.5-10.5 mg/dL AST (SGOT) 23 10-42 unit/L ALT (SGPT) 19 10-60 unit/L Alkaline Phosphatase 55 42-121 unit/L Total Protein 7.0 6.0-8.0 g/dL Albumin 3.4 3.2-5.0 g/dL Total Bilirubin 0.5 0.0-1.4 mg/dL LIPID PANEL WITH REFLEX TO D IRECT LDL Reviewed date:08/01/2025 09:42:53 AM Interpretation: Performing Lab: Notes/Report: Cholesterol 140 0-200 mg/dL Triglycerides 225 0-150 mg/dL H HDL 38 >=40 mg/dL L LDL Calculated 57 0-100 mg/dL Estimated LDL Calculated using equation: Total cholesterol - HDL cholesterol - (Triglycerides/5) VLDL Cholesterol Max 45 Non HDL Chol. (LDL+VLDL) 102 <145 mg/dL Chol/HDL Ratio 3.7 0.0-4.4 CBC WITH AUTO DIFFERENTIAL Reviewed date:08/01/2025 09:41:19 AM Interpretation: Performing Lab: Notes/Report: WBC 7.2 4.8-10.8 K/mcL RBC 4.80 4.50-5.50 M/mcL Hemoglobin 14.7 13.5-17.5 g/dL Hematocrit 45.8 42.0-54.0 % MCV 95.2 79.0-98.0 FL MCH 30.6 27.0-32.0 pcg MCHC 32.1 32.0-37.0 g/dL RDW 14.6 11.0-15.0 % Platelets 196 130-400 K/mcL MPV 10.1 7.0-11.0 FL NRBC 0.0 <1.0 % NRBC Absolute 0.00 <0.10 K/mcL Neutrophils Relative 61.4 Lymphocytes Relative 26.0 Monocytes Relative 7.2 Eosinophils Relative 3.9 Basophils Relative 0.7 Immature Granulocytes Relative 0.8 Neutrophils Absolute 4.45 1.50-7.00 K/mcL Lymphocytes Absolute 1.88 1.00-5.00 K/mcL Monocytes Absolute 0.52 0.20-1.00 K/mcL Eosinophils Absolute 0.28 0.00-0.50 K/mcL Basophils Absolute 0.05 0.00-0.20 K/mcL Immature Granulocytes Absolute 0.06 0.00-0.03 K/mcL H COMPREHENSIVE METABOLIC PANE L Reviewed date:02/24/2025 08:00:24 AM Interpretation: Performing Lab: Notes/Report: Sodium 141 133-145 mmol/L Potassium 4.5 3.5-5.5 mmol/L Chloride 108 96-110 mmol/L CO2 29 21-32 mmol/L Anion Gap 4 3-11 Glucose 106 70-100 mg/dL H BUN 32 5-25 mg/dL H Creatinine 1.71 0.70-1.30 mg/dL H eGFR 39 >=60 mL/min/1.73m2 L Calcul ation based on the Chronic Kidney Disease Epidemiology [...] 46.2 42.0-54.0 % MCV 98.9 79.0-98.0 FL H MCH 30.8 27.0-32.0 pcg MCHC 31.2 32.0-37.0 g/dL L RDW 15.1 11.0-15.0 % H Platelets 173 130-400 K/mcL MPV 10.9 7.0-11.0 [...] Duration) Notes Start Date End Date Status azaTHIOprine 50 MG Tablet as directed Orally three time daily Active Donepezil HCl 5 MG Tablet 1 tablet at bedtime Orally Once a day; Duration: 90 days 08/08/2025 Active Vitamin D 50 MCG (2000 UT) Tablet 1 tablet Orally Once a day Active Simvastatin 40 mg Tablet TAKE 1 TABLET DAILY IN THE EVENING Active Tamsulosin HCl 0.4 MG Capsule TAKE 2 CAPSULES ONCE DAILY Active Fish Oil 1000 MG Capsule 1 capsule Orally Once a day; Duration: 30 day(s) Active Calcium + D 500-1000-40 MG-UNT-MCG Tablet Chewable Orally Active OneTouch Ultra - Strip USE TO TEST DAILY ; Duration: 90 Active OneTouch Delica Plus [id number] - Miscellaneous USE DIRECTED TO TEST BLOOD GLUCOSE ONCE EVERY DAY; Duration: 90 Active Gabapentin 600 MG Tablet TAKE 1 TABLET TWICE A DAY; Duration: 90 days Active Lancets 30G - Miscellaneous check twice a day dx e11.9; Duration: 30 days 08/23/2024 Active Finasteride 5 MG Tablet 0.5 tablet Orall y twice a day; Duration: 90 days Active Multivitamin - Liquid Orally Active Warfarin Sodium 2.5 mg Tablet TAKE 1 TO 3 TABLETS ONCE A DAY DIRECTED BY PRIMARY CARE PHYSICIAN MTh 7.5; rest of days 5mg Active Lancets 30G - Miscellaneous one lancet in vitro twice daily DX E11.9; Duration: 90 days 07/04/2023 Active OneTouch Ultra Blue - Strip USE TO TEST BLOOD SUGAR In Vitro DX E11.9 ONCE DAILY; Duration: 0 Active Metoprolol Tartrate 25 mg Tablet TAKE ONE-HALF (1/2) TABLET TWICE A DAY WITH FOOD Active Immunizations Vaccine Route Administration Date Status [...] stop date) Never Smoker NA - NA Social History Drugs/Alcohol: Social Info Question Answer Notes Drugs Have you used drugs other than those for medical reasons in the past 12 months? No Tobacco Use: Social Info Question Answer Notes Tobacco Use/Smoking Are you a nonsmoker Additional Details Category Social Info Options Details Drugs/Alcohol: Do you smoke marijuana? De nies Do you drink alcohol? Denies Section Notes: smokes , second hand sm [...] Problem Status W/U Status Risk Notes Problem Vitamin B>12< deficiency anaemia (66695608) Vitamin B12 deficiency anemia, unspecified (D51.9) Active confirmed Problem Anemia in chronic kidney disease (641629817) 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) Active confirmed Problem Diabetic renal disease (875227880) Type 2 diabetes mellitus with diabetic chronic kidney disease (E11.22) Active confirmed Problem Hyperglycemia due to type 2 diabetes mellitus (012640232763756) Type 2 diabetes mellitus with hyperglycemia (E11.65) Active confirmed Problem Disorder due to type 2 diabetes mellitus (233364958) Type 2 diabetes mellitus with unspecified complications (E11.8) Active confirmed Problem Type II diabetes mellitus without complication (228821857) Type 2 diabetes mellitus without complications (E11.9) Active confirmed Problem Vitamin D deficiency (21860731) Vitamin D deficiency, unspecified (E55.9) Active confirmed Problem 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 Problem Hyperlipidemia (13014911) Hyperlipidemia, unspecified (E78.5) Active confirmed Problem Essential hypertension (89076623) Essential (primary) hypertension (I10) Active confirmed Problem Cerebral infarction (165880003) Cerebral infarction, unspecified (I63.9) Active confirmed Problem Autoimmune hepatitis (193431328) Autoimmune hepatitis (K75.4) Active confirmed Problem Chronic kidney disease stage 3 (disorder) (096440689) Chronic kidney disease, stage 3 (moderate) (N18.3) Active confirmed Problem Long-term current us e of anticoagulant (860175632) snf (current) use of anticoagulants (Z79.01) Active confirmed Problem Benign prostatic hypertrophy without outflow obstruction (465357405) Benign prostatic hyperplasia without lower urinary tract symptoms (N40.0) Active confirmed Problem Backache (524045676) Back pain, unspecified back location, unspecified back pain laterality, unspecified chronicity (M54.9) Active confirmed Problem Adult health examination (069970410) Adult general medical exam (Z00.00) Active confirmed Problem Memory loss (08096194) Memory loss (R41.3) Active confirmed Problem Hypothyroidism (09574290) Hypothyroidism, unspecified type (E03.9) Active confirmed Problem Annual health maintenance examination (35754188) Annual physical exam (Z00.00) Active confirmed Problem Vitamin D deficiency (34458913) Vitamin D deficiency (E55.9) Active confirmed Problem Use of anticoagulation (008550792) Chronic anticoagulation (Z79.01) Active confirmed Problem Obesity (043709709) Obesity (BMI 30-39.9) (E66.9) Active confirmed Problem Type II diabetes mellitus without complication (524505576) Type 2 diabetes mellitus without complication, unspecified whether supervisor intermediates insulin use (E11.9) Active confirmed Problem Chronic kidney disease stage 3B (disorder) (985163456) Chronic kidney disease, stage 3b (N18.32) Active confirmed Problem Obstructive sleep apnea (73664844) Obstructive sleep apnea (G47.33) Active confirmed Problem Screening for malignant neoplasm of prostate (687774264) Prostate cancer screening (Z12.5) Active confirmed Problem Vitamin B>12< deficiency anaemia (35616429) Anemia due to vitamin B12 deficiency, 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) Active confirmed Problem Body mass index 30.0 0 to 34.99 (894321123961865) BMI 34.0-34.9,adult (Z68.34) Active confirmed Problem Degeneration of lumbar intervertebral disc (68672834) Degenerative disc disease, lumbar (M51.36) Active confirmed Problem Benign prostatic hypertrophy without outflow obstruction (146062826) BPH loc w/o ur obs/LUTS (N40.0) Active confirmed Problem Elevated level of transaminase and lactic acid dehydrogenase (finding) (424033660) Transaminitis (R74.01) Active confirmed Problem Bilateral low ba ck pain, unspecified chronicity, unspecified whether sciatica present (M54.50) Active confirmed Problem Aortic valve disease (2216120) Aortic valve disease (I35.9) Active confirmed Problem History of heart valve repair with prosthesis (915393898802191) Aortic valve replaced (Z95.2) Active confirmed Problem Mild dementia wi th anxiety, unspecified dementia type (F03.A4) Active confirmed Problem Diabetes mellitus type 2 in nonobese (318797671) Diabetes mellitus type 2 in nonobese (E11.9) Active confirmed Problem Obstructive sleep apnea syndrome (75023511) ARGENIS on CPAP (G47.33) Active confirmed Vital Signs Heart Rate 60 /min 08/08/2025 Oximetry 98 % 07/13/2025 Blood pressure diastolic 78 mm Hg 08/08/2025 Height 66 in 08/08/2025 Blood pressure systolic 126 mm Hg 08/08/2025 Weight 205.6 lbs 08/08/2025 BMI 33.18 kg/m2 08/08/2025 Encounters Encounter Location Date Provider Diagnosis [facility] [address] [place] [address] 11/18/2024 CHRISTINA WALTERS Type 2 diabetes phuong [...] 34.0-34.9,adult Z68.[address] [facility] [address] [place] [address] 02/24/2025 CHRISTINA WALTERS Type 2 diabetes phuong [...] examination Z01.[address] [facility] [address] [place] [address] 07/13/2025 JUMANA INFANTE Type 2 diabetes phuong itus without complications E11.9 ; Memory loss R41.3 ; Cerebral infarction, unspecified I63.9 and Benign prostatic hyperplasia without lower urinary tract symptoms N40.[address] [facility] [address] [place] [address] 08/08/2025 JUMANA INFANTE Memory loss R41.3 ; Type 2 diabetes mellitus without complications E11.9 ; Mild dementia with anxiety, unspecified dementia type F03.A4 and Cerebral infarction, unspecified I63.[address] [facility] [address] [place] [address] 11/05/2024 CHRISTINA WALTERS [facility] [address] [address] 11/09/2024 TALAL INFANTE [facility] [address] [place] [address] 12/06/2024 CHRISTINA WALTERS [facility] [address] [address] 2025 TALAL INFANTE [facility] [address] [place] [address] 01/24/2025 CHRISTINA WALTERS [facility] [address] [address] 02/22/2025 CHRISTINA WALTERS Adult general medica l exam Z00.00 ; Type 2 diabetes mellitus with unspecified complications E11.8 and Hyperlipidemia, unspecified E78.[address] [facility] [address] [facility] [address] [place] [address] 03/18/2025 CHRISTINA WALTERS [facility] [address] [place] [address] 04/27/2025 CHRISTINA WALTERS Type 2 diabetes phuong itus without complications E11.9 ; Hyperlipidemia, unspecified E78.5 ; Benign prostatic hyperplasia without lower urinary tract symptoms N40.0 ; Elevated LFTs R79.89 and Anemia in chronic kidney disease D63.[address] [facility] [address] [place] [address] 04/27/2025 CHRISTINA SELENA [facility] [address] [place] [address] 05/04/2025 CHRISTINA WALTERS [facility] [address] [place] [address] 05/24/2025 CHRISTINAJUAN DANIEL MICHAELA [facility] [address] [place] [address] 06/29/2025 CHRISTINA SELENA [facility] [address] [place] [address] 07/13/2025 TALAL INFANTE [facility] [address] [place] [address] 07/13/2025 TALAL INFANTE [facility] [address] [place] [address] 07/13/2025 TALAL INFANTE [facility] [address] [facility] [address] [place] [address] 08/08/2025 CHRISTINAJUAN DANIEL WALTERS [facility] [address] [place] [address] 09/06/2025 CHRISTINA WALTERS Assessments Encounter Date Diagnosis (ICD [...] with < 0.2% episodes of apnea. Sees [facility] sleep medicine. Overnight Pulse oximeter [...] Dr. Deniz Kaba discussed with collaborating physician Alexsu Infante who reviewed the assessment and plan. Chart, medications, labs, vital signs reviewed. Dictation was accomplished with the use of [employer] voice recognition software, prone to medical misidentifications [...] with < 0.2% episodes of apnea. Sees [facility] sleep medicine. Overnight Pulse oximeter [...] Dictation was accomplished with the use of [employer] voice recognition software, prone to medical misidentifications [...] log exercise and discussed fitness Apps like [employer] which can help keep log off calories [...] Dictation was accomplished with the use of [employer] voice recognition software, prone to medical misidentifications [...] log exercise and discussed fitness Apps like [employer] which can help keep log off calories [...] Dictation was accomplished with the use of [employer] voice recognition software, prone to medical misidentifications [...] diabetes mellitus without complications (ICD-10 - E11.9) 07/13/2025 Type 2 diabetes mellitus without complications (ICD-10 - E11.9) For memory loss I have advised the patient to follow-up with an MRI of the brain and complete his blood work.For his other multiple medical problems including type 2 diabetes hypertension hyperlipidemia we will continue current medications. Will continue anticoagulation with Coumadin with history of IVC filter with factor V Leyden. Patient will follow-up with nephrology and then follow-up with me in 1 month for routine care. Patient will also be started on sertraline 50 mg p.o. daily. Patient has history of issues with anxiety and agitation along with memory deficits and I think this will help along with mental health counseling for which we will refer him to a counselor 08/08/2025 Type 2 diabetes mellitus without complications (ICD-10 - E11.9) Patient with multiple medical problems as listed above. Continue current medications but add Aricept obtain an MRI of the brain with and without contrast and follow-up in a few months 08/08/2025 Memory loss (ICD-10 - R41.3) Patient with multiple medical problems as listed above. Continue current medications but add Aricept obtain an MRI of the brain with and without contrast and follow-up in a few months 07/13/2025 Memory loss (ICD-10 - R41.3) For memory loss I have advised the patient to follow-up with an MRI of the brain and complete his blood work.For his other multiple medical problems including type 2 diabetes hypertension hyperlipidemia we will continue current medications. Will continue anticoagulation with Coumadin with history of IVC filter with factor V Leyden. Patient will follow-up with nephrology and then follow-up with me in 1 month for routine care. Patient will also be started on sertraline 50 mg p.o. daily. Patient has history of issues with anxiety and agitation along with memory deficits and I think this will help along with mental health counseling for which we will refer him to a counselor 08/08/2025 Mild dementia with anxiety, unspecified dementia type (ICD-10 - F03.A4) Patient with multiple medical problems as listed above. Continue current medications but add Aricept obtain an MRI of the brain with and without contrast and follow-up in a few months 04/27/2025 Hyperlipidemia, unspecified (ICD-10 - E78.5) 02/24/2025 [...] log exercise and discussed fitness Apps like [employer] which can help keep log off calories [...] Dictation was accomplished with the use of [employer] voice recognition software, prone to medical misidentifications [...] with < 0.2% episodes of apnea. Sees [facility] sleep medicine. Overnight Pulse oximeter [...] Dictation was accomplished with the use of [employer] voice recognition software, prone to medical misidentifications [...] with < 0.2% episodes of apnea. Sees [facility] sleep medicine. Overnight Pulse oximeter [...] Dictation was accomplished with the use of [employer] voice recognition software, prone to medical misidentifications [...] log exercise and discussed fitness Apps like [employer] which can help keep log off calories [...] Dictation was accomplished with the use of [employer] voice recognition software, prone to medical misidentifications [...] lower urinary tract symptoms (ICD-10 - N40.0) 07/13/2025 Cerebral infarction, unspecified (ICD-10 - I63.9) For memory loss I have advised the patient to follow-up with an MRI of the brain and complete his blood work.For his other multiple medical problems including type 2 diabetes hypertension hyperlipidemia we will continue current medications. Will continue anticoagulation with Coumadin with history of IVC filter with factor V Leyden. Patient will follow-up with nephrology and then follow-up with me in 1 month for routine care. Patient will also be started on sertraline 50 mg p.o. daily. Patient has history of issues with anxiety and agitation along with memory deficits and I think this will help along with mental health counseling for which we will refer him to a counselor 08/08/2025 Cerebral infarction, unspecified (ICD-10 - I63.9) Patient with multiple medical problems as listed above. Continue current medications but add Aricept obtain an MRI of the brain with and without contrast and follow-up in a few months 07/13/2025 Benign prostatic hyperplasia without lower urinary tract symptoms (ICD-10 - N40.0) For memory loss I have advised the patient to follow-up with an MRI of the brain and complete his blood work.For his other multiple medical problems including type 2 diabetes hypertension hyperlipidemia we will continue current medications. Will continue anticoagulation with Coumadin with history of IVC filter with factor V Leyden. Patient will follow-up with nephrology and then follow-up with me in 1 month for routine care. Patient will also be started on sertraline 50 mg p.o. daily. Patient has history of issues with anxiety and agitation along with memory deficits and I think this will help along with mental health counseling for which we will refer him to a counselor 04/27/2025 Elevated LFTs (ICD-10 - R79.89) 02/24/2025 [...] log exercise and discussed fitness Apps like [employer] which can help keep log off calories [...] Dictation was accomplished with the use of [employer] voice recognition software, prone to medical misidentifications [...] with < 0.2% episodes of apnea. Sees [facility] sleep medicine. Overnight Pulse oximeter [...] Dictation was accomplished with the use of [employer] voice recognition software, prone to medical misidentifications [...] with < 0.2% episodes of apnea. Sees [facility] sleep medicine. Overnight Pulse oximeter [...] Dictation was accomplished with the use of [employer] voice recognition software, prone to medical misidentifications [...] log exercise and discussed fitness Apps like [employer] which can help keep log off calories [...] Dictation was accomplished with the use of [employer] voice recognition software, prone to medical misidentifications [...] with < 0.2% episodes of apnea. Sees [facility] sleep medicine. Overnight Pulse oximeter [...] Dictation was accomplished with the use of [employer] voice recognition software, prone to medical misidentifications [...] log exercise and discussed fitness Apps like [employer] which can help keep log off calories [...] Dictation was accomplished with the use of [employer] voice recognition software, prone to medical misidentifications [...] log exercise and discussed fitness Apps like [employer] which can help keep log off calories [...] Dictation was accomplished with the use of [employer] voice recognition software, prone to medical misidentifications [...] with < 0.2% episodes of apnea. Sees [facility] sleep medicine. Overnight Pulse oximeter [...] Dictation was accomplished with the use of [employer] voice recognition software, prone to medical misidentifications [...] log exercise and discussed fitness Apps like [employer] which can help keep log off calories [...] Dictation was accomplished with the use of [employer] voice recognition software, prone to medical misidentifications [...] with < 0.2% episodes of apnea. Sees [facility] sleep medicine. Overnight Pulse oximeter [...] Dictation was accomplished with the use of [employer] voice recognition software, prone to medical misidentifications [...] log exercise and discussed fitness Apps like [employer] which can help keep log off calories [...] Dictation was accomplished with the use of [employer] voice recognition software, prone to medical misidentifications [...] with < 0.2% episodes of apnea. Sees [facility] sleep medicine. Overnight Pulse oximeter [...] Dictation was accomplished with the use of [employer] voice recognition software, prone to medical misidentifications [...] with < 0.2% episodes of apnea. Sees [facility] sleep medicine. Overnight Pulse oximeter [...] Dictation was accomplished with the use of [employer] voice recognition software, prone to medical misidentifications [...] log exercise and discussed fitness Apps like [employer] which can help keep log off calories [...] Dictation was accomplished with the use of [employer] voice recognition software, prone to medical misidentifications [...] log exercise and discussed fitness Apps like [employer] which can help keep log off calories [...] Dictation was accomplished with the use of [employer] voice recognition software, prone to medical misidentifications [...] log exercise and discussed fitness Apps like [employer] which can help keep log off calories [...] Dictation was accomplished with the use of [employer] voice recognition software, prone to medical misidentifications [...] log exercise and discussed fitness Apps like [employer] which can help keep log off calories [...] Dictation was accomplished with the use of [employer] voice recognition software, prone to medical misidentifications [...] log exercise and discussed fitness Apps like [employer] which can help keep log off calories [...] Dictation was accomplished with the use of [employer] voice recognition software, prone to medical misidentifications [...] 10/27/2017 X ray : LS Spine 05/29/2023 MRI : Brain without Contrast 08/08/2025 Ultrasound : Artery Doppler Low Ext Righ t 05/20/2023 25OH VITAMIN D 10/15/2021 AST (SGOT) 11/21/2021 CBC (COMPLETE BLOOD COUNT) 05/21/2021 CBC (COMPLETE BLOOD COUNT) 10/15/2021 CBC (COMPLETE BLOOD COUNT) 06/02/2020 CBC (COMPLETE BLOOD COUNT) 11/02/2019 CBC (COMPLETE BLOOD COUNT) 04/27/2019 CBC (COMPLETE BLOOD COUNT) 09/01/2018 COMPREHENSIVE METABOLIC PANEL 11/02/2019 COMPREHENSIVE METABOLIC PANEL 04/27/2019 COMPREHENSIVE METABOLIC PANEL 09/01/2018 COMPREHENSIVE METABOLIC PANEL 06/02/2020 COMPREHENSIVE METABOLIC PANEL 10/15/2021 COMPREHENSIVE METABOLIC PANEL 05/21/2021 FOLIC ACID 07/13/2025 HEMOGLOBIN A1C 11/26/2022 HEMOGLOBIN A1C 10/27/2017 HEMOGLOBIN A1C 11/02/2019 HEMOGLOBIN A1C 05/21/2021 HEMOGLOBIN A1C 06/02/2020 HEMOGLOBIN A1C 10/15/2021 HEMOGLOBIN A1C 04/27/2019 LIPID PANEL 09/01/2018 LIPID PANEL 06/02/2020 LIPID PANEL 05/21/2021 LIPID PANEL 10/15/2021 LIPID PANEL 11/02/2019 LIPID PANEL 04/27/2019 PSA, SCREEN 10/15/2021 TSH 10/15/2021 URINALYSIS, COMPLETE 04/27/2019 URINALYSIS, COMPLETE 11/02/2019 URINALYSIS, COMPLETE 06/02/2020 URINALYSIS, COMPLETE 09/01/2018 AST/SGOT 11/21/2021 US Extrem Non-Vascular RT 05/15/2023 PT/INR 04/27/2019 LIPID PANEL, STANDARD 04/27/2025 LIPID PANEL, STANDARD 07/13/2025 LIPID PANEL, STANDARD 04/06/2024 LIPID PANEL, STANDARD 11/14/2023 HEPATITIS PANEL, ACUTE W/REFLEX TO CONFI RMATION 11/21/2021 COMPREHENSIVE METABOLIC PANEL 04/06/2024 COMPREHENSIVE METABOLIC PANEL 11/14/2023 COMPREHENSIVE METABOLIC PANEL 07/13/2025 COMPREHENSIVE METABOLIC PANEL 04/27/2025 COMPREHENSIVE METABOLIC PANEL 02/22/2025 COMPREHENSIVE METABOLIC PANEL 02/19/2024 CBC (INCLUDES DIFF/PLT) 02/19/2024 CBC (INCLUDES DIFF/PLT) 04/27/2025 CBC (INCLUDES DIFF/PLT) 02/22/2025 CBC (INCLUDES DIFF/PLT) 07/13/2025 CBC (INCLUDES DIFF/PLT) 11/14/2023 CBC (INCLUDES DIFF/PLT) 04/06/2024 URINALYSIS, COMPLETE 11/14/2023 HEMOGLOBIN A1c 11/14/2023 HEMOGLOBIN A1c 02/19/2024 VITAMIN B12 07/13/2025 VITAMIN B12 11/14/2023 PSA (FREE AND TOTAL) 11/14/2023 PSA (FREE AND TOTAL) 04/27/2025 VITAMIN D,25-OH,TOTAL,IA 11/14/2023 COMPLETE URINALYSIS 10/15/2021 COMPLETE URINALYSIS 05/21/2021 Lumbar Spine 2 or 3 Views 03/02/2024 Hemoglobin [id number] 04/27/2025 MR BRAIN WO CONTRAST 08/17/2025 Future Test Test Name Order Date CBC (COMPLETE BLOOD COUNT) 05/05/2021 COMPREHENSIVE METABOLIC PANEL 05/05/2021 HEMOGLOBIN A1C 05/05/2021 COMPREHENSIVE METABOLIC PANEL 12/04/2022 HEMOGLOBIN A1C 12/04/2022 URINALYSIS W/REFLEX CULTURE 12/04/2022 Next Appt Details Provider Name:JUMANA INFANTE, 09/28/2025 11:00:00 AM, [address], [place], [id number], Insurance Providers Payer Name Payer Address Payer Phone Subscriber Number Group Number Insured Name Patient Relationship to Insured Coverage Start Date Coverage End Date Medicare Part B [id number] [address] [place] [id number] IRVIN GARCIA Self - patient is the insured MED[employer] [address] [place] [address] [id number] IRVIN GARCIA Self - patient is the insured Medical [...]
--- OUTSIDE RECORDS SUMMARY | 2025-09-21 12:25 | XMS_ITS | Encounter Summary ---
Author Organization [facility] Address [address] [place] [phone] Phone Care Team Providers Care Rn Case Manager Name Role Phone Osito Infante MD Primary Care Provider [phone] Encounter Details Date Type Department Care Team (Late st Contact Info) Description 11/29/2022 Procedure Pass [facility] [address] [place] [address] Social History Tobacco Use Types Packs/Day Years [...] on filedocumented in this encounter Care Teams Rn Case Manager Relationship Specialty Start Date End Date Osito Infante MD [address] [place] [id number] PCP - General Internal Medicine 11/29/22 documented as of this encounter Additional Source Comments The information contained in this document represents components of the legal health record. It is not the complete legal health record.[facility]
--- OUTSIDE RECORDS SUMMARY | 2025-09-21 12:25 | XMS_ITS | Encounter Summary ---
Author Organization [facility] Address [address] [place] [phone] Phone Care Team Providers Care Scale Clerk Name Role Phone Osito Infante MD Primary Care Provider Encounter Details Date Type Department Care Team (Late st Contact Info) Description 01/09/2023 Procedure Pass [facility] [address] [place] [address] Social History Tobacco Use Types Packs/Day Years [...] on filedocumented in this encounter Care Teams Scale Clerk Relationship Specialty Start Date End Date Osito Infante MD [address] [place] [phone] PCP - General Internal Medicine 11/29/22 documented as of this encounter Additional Source Comments The information contained in this document represents components of the legal health record. It is not the complete legal health record.[facility]
== END 2025-09-21 11:24 | disposition home or self-care (01) ==
LOC: HO.ACS 10:55
PROVIDERS: PCP Physician Assistant Medical; Visit Provider Internal Medicine Medical Oncology
DX: Z79.01 Long term (current) use of anticoagulants (principal)

== ENCOUNTER → 2025-09-21 10:55 | Outpatient (BNVA) | payer MEDICARE, SELFPAY | PROVIDERS: PCP Physician Assistant Medical; Visit Provider Internal Medicine Medical Oncology | DX: I26.99 Other pulmonary embolism without acute cor pulmonale (principal); Z51.81 Encounter for therapeutic drug level monitoring; Z79.01 Long term (current) use of anticoagulants | CPT/HCPCS: 85610; 99211 ==